=== PATIENT | male | born 1940 | race Caucasian/White ===

== ENCOUNTER 2017-04-14 10:16 | Emergency (ER) | payer OTHER, MEDICARE ==
[~2017-04-14] VITALS: Ht 182.9 cm; Wt 99.4 kg
[~2017-04-14 10:16] MED LIST: ACET-1257 PO; ATEN-175 PO; ATOR-54 PO; CHOLTAB3 PO; CLON1TAB3 PO; OMEP40CA PO
[2017-04-14 10:31] VITALS: TEMP 37.4; Ht 182.9 cm; Wt 99.4 kg
[2017-04-14] MEDS ORDERED: LORA-741 PO (11:10)
[2017-04-14] MEDS ORDERED: CHOL1000 PO (11:10)
[2017-04-14] MEDS ORDERED: PRLSR20 PO (11:10)
[2017-04-14] MEDS ORDERED: DOCU-94 PO (11:12)
[2017-04-14] MEDS ORDERED: CLONIDINE HCL 0.1 MG TAB PO ONE (11:15)
[2017-04-14 11:20] VITALS: O2SAT 95
[2017-04-14 11:36] LABS: BASO % 0.6 %; BASO ABS # 0.06 K/uL (0-0.2); COMPLETE YES; EOS % 1.3 %; HEMATOCRIT 43.4 % (42-52); IG% 0.5 %; LYMPH % 14.6 %; LYMPH ABS # 1.51 K/uL (1.2-3.4); MEAN CELL VOLUME 97.1 fL (80-100); MEAN CORPUSCULAR HEMOGLOBIN 33.6 pg (25-34); MEAN CORPUSCULAR HGB CONC 34.6 g/dl (32-36); MEAN PLATELET VOLUME 9.6 fL (7.4-10.4); MONO % 7.9 %; NEUT % 75.1 %; PLATELET COUNT 234 K/uL (130-400); RED BLOOD COUNT 4.47 M/uL (4.7-6.1); WHITE BLOOD COUNT 10.31 K/uL (4.8-10.8)
--- NOTE | 2017-04-14 11:45 | DIAGNOSTIC IMAGING REPORT ---
CHEST ONE VIEW PORTABLE HISTORY: 76 years-old Male Evaluate Fever/Sepsis acute fever and sepsis COMPARISON: Chest radiograph 12/09/2014 TECHNIQUE: Portable AP view of the chest FINDINGS: Cardiomediastinal and hilar silhouettes are within normal limits. Atherosclerosis of the aorta. No pneumothorax, pleural effusion, focal airspace consolidation or overt pulmonary edema. Bones of the chest appear grossly intact. IMPRESSION: No acute cardiopulmonary process. The above report was generated using voice recognition software. It may contain grammatical, syntax or spelling errors. Electronically signed by: Jose Jackson M.D. 04/14/2017 11:44 AM Dictated Date/Time: 04/14/2017 11:42 AM
[2017-04-14 12:05] LABS: ALT/SGPT 34 U/L (12-78); BLOOD UREA NITROGEN 11 mg/dl (7-18); BUN/CREATININE RATIO 9.4 (10-20); CALCIUM 8.9 mg/dl (8.5-10.1); CARBON DIOXIDE 25 mmol/L (21-32); CHLORIDE 103 mmol/L (98-107); CREATININE 1.19 mg/dl (0.60-1.40); GLUCOSE 100 mg/dl (70-99); POTASSIUM 3.9 mmol/L (3.5-5.1); SODIUM 136 mmol/L (136-145)
[2017-04-14 12:16] LABS: ALKALINE PHOSPHATASE 78 U/L (45-117); AST/SGOT 26 U/L (15-37); CKMB/CK RATIO 1.6 (0-3.0)
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
[2017-04-14 14:47] VITALS: BP 143/81; PULSE 63; O2SAT 95
== END 2017-04-14 14:53 | disposition home or self-care (01) ==
LOC: C.EDB 10:18
DX: E86.0 Dehydration (principal); R53.1 Weakness; R42 Dizziness and giddiness; I10 Essential (primary) hypertension; Z85.51 Personal history of malignant neoplasm of bladder; Z79.899 Other long term (current) drug therapy; Z87.891 Personal history of nicotine dependence

== ENCOUNTER 2018-11-28 02:59 | Inpatient (IN) ==
[2018-11-28] MEDS ORDERED: HYDROmorphone INJ 0.5 MG/0.5 ML SYR IV STA ×2 (03:16→04:08)
[2018-11-28] MEDS ORDERED: KETOROLAC 30 MG/ML VIAL IV STA (03:16)
[2018-11-28 04:26] LABS: Basophils # (auto) 0.03 K/uL (0-0.2); Basophils % (auto) 0.2 %; Eosinophils # (auto) 0.06 K/uL (0-0.5); Eosinophils % (auto) 0.5 %; Hematocrit (blood only) 38.1 % (42-52); Hemoglobin 13.3 g/dL (14.0-18.0); Immature Granulocytes # (auto) 0.07 K/uL (0.00-0.02); Immature Granulocytes % (auto) 0.6 %; Lymphocytes # (auto) 0.88 K/uL (1.2-3.4); Mean Corpuscular Hgb Conc 34.9 g/dL (32-36); Mean Corpuscular Volume 92.7 fL (80-100); Mean Platelet Volume 9.2 fL (7.4-10.4); Monocytes # (auto) 1.09 K/uL (0.11-0.59); Monocytes % (auto) 8.7 %; Neutrophils # (auto) 10.45 K/uL (1.4-6.5); Platelet Count 232 K/uL (130-400); RDW Standard Deviation 43.3 fL (36.4-46.3); Red Blood Count 4.11 M/uL (4.7-6.1); White Blood Count 12.58 K/uL (4.8-10.8)
[2018-11-28 04:42] LABS: C Reactive Protein 1.52 mg/dl (0-0.29); Uric Acid 4.8 mg/dl (2.6-7.2)
--- NOTE | 2018-11-28 06:26 | Emergency Department Note ---
Entered by Marta Barajas acting as a scribe for Agatha Quintana DO History of Present Illness General Chief complaint: Elbow Injury/Pain Stated complaint: elbow pain Time Seen by Provider: 11/28/18 03:02 Source: patient History of Present Illness Onset (ago): hour(s) 8 Location: right (elbow) Severity: severe Pain Consistency: + other (Worsening) Quality: + other (Elbow pain) Relieved By: not by medication (Tylenol) Exacerbated By: + movement Associated symptoms: + other (Positive right arm pain. Negative right shoulder pain, left arm pain and abdominal pain.) Treatments prior to arrival: other (Tylenol) The patient is a 77 year old male who presents to the Emergency Department via EMS complaining of worsening elbow pain starting 8 hours ago. The patient reports that he hit his right elbow on a storm door and that he began to feel pain 4 hours after this event. He states that his right elbow is severely painful and moving his right arm worsens his elbow pain. He explains that he took Tylenol [employer] for his symptoms that did not relieve his pain. He notes that he has never experienced these symptoms before. He adds that he follows with a [facility] PCP. The patient denies right shoulder pain, left arm pain and abdominal pain. Home Medications Home Medications Medication Instructions Recorded Confirmed Type acetaminophen [Tylenol Extra 500 - 1,000 mg PO DIRECTED PRN 11/28/18 11/28/18 History Strength] atenolol 100 mg PO DAILY 11/28/18 11/28/18 History atorvastatin 20 mg PO PM 11/28/18 11/28/18 History cholecalciferol (vitamin D3) 400 unit PO DAILY 11/28/18 11/28/18 History [D-Vi-Tish] clonazepam 0.5 mg PO DAILY PRN 11/28/18 11/28/18 History clonazepam 1 mg PO HS PRN 11/28/18 11/28/18 History diphenhydramine-acetaminophen 1 tab PO DIRECTED PRN 11/28/18 11/28/18 History [Tylenol PM Extra Strength] ferrous sulfate 325 mg PO DAILY 11/28/18 11/28/18 History lorazepam 1 mg PO DIRECTED PRN 11/28/18 11/28/18 History odnqlkhf-duv-ptyqd-vit K-lycop 1 tab PO DAILY 11/28/18 11/28/18 History [Men's One Daily] omeprazole 20 mg PO DAILYBB 11/28/18 11/28/18 History sennosides [Natural Veg 8.6 mg PO BID PRN 11/28/18 11/28/18 History Laxative(sennosid)] Allergies Allergy/AdvReac Type Severity Reaction Status Date / Time meclizine Allergy Intermediate Swelling Verified 11/28/18 03:35 of tongue. aspirin AdvReac Unknown History of Verified 11/28/18 03:35 ulcers Past Med/Surg History Medical History Macular degeneration (Chronic) Tinnitus (Chronic) History of carcinoma of bladder (Chronic) Dyslipidemia (Chronic) History of colon polyps (Chronic) Hypertension (Chronic) Surgical History Status post lumbar surgery (Chronic) Social History Feels Safe at Home: Yes Smoking Status: Current every day smoker Review of Systems See HPI for pertinent positives & negatives. and A total of 10 systems reviewed and were otherwise negative Physical Exam Vital Signs Vital Signs - 24 hr 11/28/18 03:02 11/28/18 04:37 11/28/18 05:03 Temperature 37.1 C 37.1 C Temperature Source Oral Oral Sepsis Recent Fever Within 48 Hours No Sepsis Action Taken by Nursing No Action Required Pulse Rate 72 Pulse Rate [Right Finger] 68 Respiratory Rate 20 Respiratory Effort / Characteristics Non-Labored Respiratory Depth Normal Blood Pressure 145/109 H Blood Pressure [Left Arm] 166/82 H Blood Pressure Mean 121 Blood Pressure Mean [Left Arm] 110 Pulse Oximetry 98 96 Oxygen Delivery Method Room Air Room Air HEENT: Head - normocephalic and atraumatic Pupils are equal, round, and reactive to light. Extraocular eye muscles are intact, and sclera are anicteric. Nose - moist nasal mucosa without discharge. Mouth - moist buccal mucosa. Oropharynx is nonerythematous and there is no tonsillar exudate or edema noted. Neck: Supple; no nuchal rigidity or cervical lymphadenopathy Heart: Regular rate and rhythm. There is a normal S1 and S2 with no murmurs, clicks, or gallops appreciated. Lungs: Clear to auscultation bilaterally with no wheezes, rales, or rhonchi. Abdomen: Soft, completely nontender, nondistended, with good bowel sounds. There are no palpable pulsatile masses or hepatosplenomegaly. There is no guarding, rigidity, or rebound noted. Extremities: No evidence of cyanosis or clubbing.There are easily palpable peripheral pulses. Right elbow seems edematous and has a significantly limited range of motion. The patient has moderate pain to palpation over the medial aspect of the elbow specifically in the AC space and over the brachioradialis muscle. Skin: warm and dry with good turgor and no rashes. Course 0310: The patient was evaluated in room A10, and a complete history and physical examination were performed. An IV lock was initiated and the patient had an x- ray of the right elbow as described below. 0325: Toradol 30 mg IV, Dilaudid 0.5 mg IV 0358: I reevaluated the patient at this time who still has severe elbow pain with even slight movement. Laboratory studies were drawn 0421: Dilaudid 0.5 mg IV. The patient will be placed into an arm sling. 0454: I reevaluated the patient at this time who still reports that he is having severe pain. 0510: I discussed the patients case with Dr. Angie spears. He will evaluate the patient for further management. Consultations Consultation #1: I discussed the patients case with Dr. Angie spears. He will evaluate the patient for further management. Time: 05:10 Administered Medications Discontinued Medications Hydromorphone HCl (Dilaudid) 0.5 mg IV NOW STA Stop: 11/28/18 03:17 Last Admin: 11/28/18 03:25 Dose: 0.5 mg Documented by: [id number] Hydromorphone HCl (Dilaudid) 0.5 mg IV NOW STA Stop: 11/28/18 04:09 Last Admin: 11/28/18 04:21 Dose: 0.5 mg Documented by: [id number] Ketorolac Tromethamine (Toradol) 30 mg IV NOW STA Stop: 11/28/18 03:17 Last Admin: 11/28/18 03:25 Dose: 30 mg Documented by: [id number] Medical Decision Making Differential Diagnosis Differential diagnosis includes elbow fracture, elbow sprain, septic arthritis, bursitis, hemarthrosis, gout and joint effusion amongst others. Medical Records Attestation: I reviewed the patient's medical records. Home Medications Current Medication List: was personally reviewed by me Laboratory Data Attestation: I reviewed the patient's lab results. Result diagrams: 11/28/18 04:16 Lab Results 11/28/18 11/28/18 11/28/18 Range/Units 04:16 04:16 04:16 WBC 12.58 H (4.8-10.8) K/uL RBC 4.11 L (4.7-6.1) M/uL Hgb 13.3 L (14.0-18.0) g/dL Hct 38.1 L (42-52) % MCV 92.7 (80-100) fL MCH 32.4 (25-34) pg MCHC 34.9 (32-36) g/dL RDW Std Deviation 43.3 (36.4-46.3) fL RDW Coeff of Hemanth 13.0 (11.5-14.5) % Plt Count 232 (130-400) K/uL MPV 9.2 (7.4-10.4) fL Immature Gran % (Auto) 0.6 % Neut % (Auto) 83.0 % Lymph % (Auto) 7.0 % Moffat % (Auto) 8.7 % Eos % (Auto) 0.5 % Baso % (Auto) 0.2 % Immature Gran # (Auto) 0.07 H (0.00-0.02) K/uL Neut # (Auto) 10.45 H (1.4-6.5) K/uL Lymph # (Auto) 0.88 L (1.2-3.4) K/uL [place]at # (Auto) 1.09 H (0.11-0.59) K/uL Eos # (Auto) 0.06 (0-0.5) K/uL Baso # (Auto) 0.03 (0-0.2) K/uL ESR 15 H (0-14) mm/hr Uric Acid 4.8 (2.6-7.2) mg/dl C-Reactive Protein 1.52 H (0-0.29) mg/dl Imaging Data Attestation: I personally reviewed and interpreted this imaging study as follows: My Impression: XR Elbow RT min 3V routine Stat: No obvious fracture. No significant joint effusion. No dislocation. Blood Pressure Blood Pressure Findings: Elevated blood pressure Blood Pressure Disposition: further management by hospitalist MDM Narrative The patient is a 77 year old male who presents to the ED with worsening elbow pain starting 8 hours ago. Differential diagnosis includes elbow fracture, elbow sprain, septic arthritis, bursitis, gout, hemarthrosis and joint effusion amongst others. The patient had exquisite pain with even slight movement of the right elbow. There was a mild leukocytosis with a slightly elevated sed rate and C-reactive protein. Despite multiple IV pain medications, he was getting no relief of his discomfort. I am not convinced that the episode of striking the elbow with the storm door 4 hours prior to the start of his pain had anything to do with his discomfort. I considered the possibility of gout as well as a septic joint versus bursitis. I felt the patient would require further inpatient care for management of the pain and evaluation by orthopedics. Impression & Plan Right elbow pain Discharge Plan Visit Data Chief Complaint: Elbow Injury/Pain Stated Complaint: elbow pain ED Provider: Agatha Quintana Discharge Problem: Right elbow pain Patient Disposition: Being Evaluated by Hospitalist Discharge Instructions Interventions: ED Discharge Assessment Last Done: 11/28/18 06:13 Forms Stand Alone Forms: My [facility] (Closed) Prescriptions Prescriptions: No Action sennosides [Natural Veg Laxative(sennosid)] 8.6 mg Tablet 8.6 mg PO BID PRN (Reason: Constipation) RF: 0 atorvastatin 20 mg Tablet 20 mg PO PM RF: 0 clonazepam 1 mg Tablet 1 mg PO HS PRN (Reason: RESTLESSNESS) RF: 0 clonazepam 1 mg Tablet 0.5 mg PO DAILY PRN (Reason: Anxiety) RF: 0 acetaminophen [Tylenol Extra Strength] 500 mg Tablet 500 - 1,000 mg PO DIRECTED PRN (Reason: Pain) RF: 0 ferrous sulfate 325 mg (65 mg iron) Tablet 325 mg PO DAILY RF: 0 omeprazole 20 mg Capsule,Delayed Release(Dr/Ec) 20 mg PO DAILYBB RF: 0 lorazepam 1 mg Tablet 1 mg PO DIRECTED PRN (Reason: BEFORE TRAVELING) RF: 0 diphenhydramine-acetaminophen [Tylenol PM Extra Strength] 25-500 mg Tablet 1 tab PO DIRECTED PRN (Reason: Pain) RF: 0 atenolol 50 mg Tablet 100 mg PO DAILY RF: 0 cholecalciferol (vitamin D3) [D-Vi-Tish] 10 mcg/mL (400 unit/mL) Drops 400 unit PO DAILY RF: 0 Men's One Daily 400-20-300 mcg Tablet 1 tab PO DAILY RF: 0 Referrals Referrals: Demarco Guallpa MD [Primary Care Provider] - The scribe's documentation has been prepared under my direction and personally reviewed by me in its entirety. I confirm that the note above accurately reflects all work, treatment, procedures, and medical decision making performed by me.
--- NOTE | 2018-11-28 06:37 | XRay Report ---
XR elbow RT min 3V routine CLINICAL HISTORY: eval for trauma trauma. Pain. COMPARISON: None. DISCUSSION: Probable fracture radial head. Joint effusion. General degenerative change all major join t compartments. Mild reactive osteophytic changes throughout. Moderate generalized soft tissue edema IMPRESSION: 1. Nondisplaced fracture radial head. 2. Small joint effusion. 3. Generalized degenerative change. The above report was generated using voice recognition software. It may contain grammatical, syntax or spelling errors. Electronically signed by: Demarco Abdi M.D. 11/28/2018 6:36 AM
[2018-11-28] MEDS ORDERED: clonazePAM 0.5 MG TAB PO PRN (07:27)
[2018-11-28] MEDS ORDERED: POLYETHYLENE (MIRALAX) 17 GM PACK PO PRN (07:27)
[2018-11-28] MEDS ORDERED: ACETAMINOPHEN 325 MG TAB PO PRN (07:27)
[2018-11-28] MEDS ORDERED: THIAMINE HCL 100 MG in SYRINGE 9 ML IV STA (07:27)
[2018-11-28] MEDS ORDERED: clonazePAM 1 MG TAB PO PRN (07:27)
[2018-11-28] MEDS ORDERED: ONDANSETRON INJ 2 MG/ML 2 ML VIAL IV PRN (07:27)
[2018-11-28] MEDS ORDERED: HYDROmorphone INJ 0.5 MG/0.5 ML SYR ONE (07:41)
[2018-11-28 07:50] LABS: BUN Creatinine Ratio 12.9 (10-20); Calcium 8.9 mg/dl (8.5-10.1); Est GFR (African American) 68.4; Potassium 4.4 mmol/L (3.5-5.1)
--- NOTE | 2018-11-28 08:11 | CT Scan Report ---
CT elbow RT wo con CT DOSE: 183.77 mGy.cm CLINICAL HISTORY: right elbow injury. Painful movements TECHNIQUE: Helical images were acquired in the transverse plane. Sagittal and coronal reformatted geena ges were acquired. A dose lowering technique was utilized adhering to the principles of ALARA. COMPARISON STUDY: X-ray study dated 11/28/2018 FINDINGS: There is a moderate joint effusion. There are moderate osteoarthritic changes present. There is radial head spurring. There is olecranon and coracoid process spurring. There is distal humeral spurring. There are multiple loose bodies. No discrete fractures are delineated. There are no dislocations. IMPRESSION: 1. Moderately advanced osteoarthritic changes with osteophytic spurring and calcified loose bodies 2. Joint effusion 3. No acute fractures or dislocations identified. Electronically signed by: Kartik Salamanca M.D. 11/28/2018 8:10 AM
--- NOTE | 2018-11-28 09:29 | History and Physical Report ---
DATE OF ADMISSION: 11/28/2018 CHIEF COMPLAINT: Right elbow injury. 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 The patient lives alone. Yesterday in the evening, he tried to close the storm door, but it came back and hit his right elbow. At that time, it seemed okay, but as in the night after supper he noted to have severe pain. The pain got worse and he came to the ER. X-ray was done, unofficial report is unremarkable. The patient even after significant pain medications still had a lot of pain. He was placed in a sling, but still movement is causing pain in the elbow, so there is question of infection as well as leukocytosis, so we are called for admission. The patient is afebrile. Denies any headaches. Has macular degeneration, but can move around his house okay. No runny nose, no sore throat, no cough, no difficulty swallowing. Appetite is okay. No chest pain or shortness of breath. No nausea, no abdominal pain. Normal bowel and bladder movements. Ambulates okay. Currently resting comfortable and hemodynamically stable. ALLERGIES: ANTIVERT, ASPIRIN. PAST MEDICAL HISTORY: As mentioned above. PAST SURGICAL HISTORY: Colonoscopy with biopsy, colonoscopy with removal of the lesions, cystoscopy, EGD, lumbar spine fusion, cystectomy with ileal conduit, removal of the bladder tumor, cervical laminectomy. MEDICATIONS: The patient is on atenolol 100 mg p.o. daily, Lipitor 20 mg p.o. daily, Klonopin 1 mg at bedtime and 0.5 mg b.i.d. p.r.n., Ativan 1 mg before travel, omeprazole 20 mg p.o. daily, Tylenol extra strength p.r.n., multivitamins with minerals 1 tablet daily, vitamin D 4000 units p.o. daily, ferrous sulfate 325 mg p.o. daily. FAMILY HISTORY: Significant for father had colon cancer, brother had heart disorder, paternal grandmother has heart disorder. SOCIAL HISTORY: , lives alone. Smokes quarter pack a day. Alcohol, drinks more or less daily, but in the last 2 days has been did not drink. He drinks beer, could not quantify. No drug use. REVIEW OF SYMPTOMS: As per HPI. Rest of review of symptoms negative. PHYSICAL EXAMINATION: GENERAL: The patient is of moderate build, not in acute distress. VITAL SIGNS: Temperature 37.1, pulse 68, respiratory rate 20, blood pressure 166/82, oxygen 96% room air. HEENT: No pallor, no icterus. Pupils equal, round, reactive to light. NECK: No JVD, no neck masses, no carotid bruits. CARDIOVASCULAR SYSTEM: S1, S2 heard, regular rate and rhythm, no murmur, no gallop. RESPIRATORY SYSTEM: Normal AP diameter. No accessory muscle use. No wheezing, no crackles. ABDOMEN: Soft, bowel sounds present, nontender. No distention. CENTRAL NERVOUS SYSTEM: Cranial nerves II-XII grossly intact. Nonfocal. EXTREMITIES: Right elbow is somewhat warm and painful movements. No erythema or edema seen. LABORATORY DATA: WBC 12.5, hemoglobin 13.3, hematocrit 38.1, platelets 232. ESR 15. C-reactive protein 1.5. Uric acid 4.8. ASSESSMENT AND PLAN: This is a 77-year-old male who presents with right elbow injury. 1. Right elbow injury hit by a storm door. No obvious swelling or erythema seen, but he has some significant painful movements. Even after giving pain medication, he still has the pain. He has some mild leukocytosis . There is question of an infection, so will observe in medical floor. We will get a CAT scan of the elbow and consult orthopedics for further recommendations. 2. Alcoholism. He does not quantify how much he drinks, but he drinks more or less every day, but he states he did not drink nearly for the last 2 days. He states he does not get withdrawal symptoms. We will watch for any withdrawal symptoms. We will give him IV thiamine and continue his home multivitamins. Place him on thiamine p.o. daily. 3. Tobacco abuse, needs counseling. 4. Hypertension. Continue his atenolol. 5. Hyperlipidemia. Continue statin. 6. Anxiety. Continue his Klonopin p.r.n. 7. Chronic kidney disease stage III. We will follow the labs. 8. Deep venous thrombosis prophylaxis, sequential compression devices. DISPOSITION: Observation in medical floor. Expect discharge home and follow with family doctor. Level 1 full code. MTDD
[2018-11-28] MEDS: SODIUM CHLORIDE 0.9% 1000ML 1,000 ML IV SCH ×2 (09:42→22:52)
[2018-11-28] MEDS: FERROUS SULFATE 325 MG TAB PO SCH (09:43)
[2018-11-28] MEDS: MULTIVITAMIN TAB PO SCH (09:43)
[2018-11-28] MEDS: THIAMINE HCL 100 MG TAB PO SCH (09:43)
[2018-11-28] MEDS: CHOLECALCIFEROL 1,000 UNITS TAB PO SCH (09:43)
[2018-11-28] MEDS: PANTOprazole 40 MG TAB PO SCH (09:43)
[2018-11-28] MEDS: ATENOLOL 50 MG TABLET PO SCH (09:44)
--- NOTE | 2018-11-28 10:06 | Orthopedic Consultation ---
Date of Consultation November 28, 2018 Assessment & Plan (1) Right elbow pain: Continue sling to right upper extremity. Can apply ice as needed. I will discuss the case with Dr. Lock and review films with him. Question infection of the right elbow joint versus injury. Sed rate is only marginally elevated and CRP is noted to be mildly elevated as well. Mild increase in white count. Question need for MRI of right elbow to rule out ligamentous injury or fracture not identified through CT scan. Possible need for joint aspiration. Will await Dr. Lock's input. History of Present Illness Reason for Consultation: Right elbow pain Attending Physician: Anabel Juarez MD History of Present Illness Patient is a 77-year-old white male who states that yesterday evening while trying to close a door, the door got away from him and ended up hitting him on the right elbow. At that time he did not have much in way of discomfort, however over the. Of the evening he began having increased pain in the elbow. As time progressed, the pain worsened. He had taken some Tylenol which did not relieve any of his symptoms. He was unable to sleep due to the amount of pain he was having and he states that his range of motion had decreased and moving the elbow was quite painful. He decided to come into the emergency room early in the morning. X-rays were taken and showed there being a question of a radial head fracture in the right elbow. Follow-up CT scan confirmed a moderate joint effusion but no fracture. He had a mild increase in his white count and he was admitted to rule out infection versus other injury. He denies any chills or rigors at home. Denies any fevers,N/V, flu or cold like symptoms. Allergies Allergy/AdvReac Type Severity Reaction Status Date / Time meclizine Allergy Intermediate Swelling Verified 11/28/18 03:35 of tongue. aspirin AdvReac Unknown History of Verified 11/28/18 03:35 ulcers Home Medications Home Medications Medication Instructions Recorded Confirmed Type acetaminophen [Tylenol Extra 500 - 1,000 mg PO DIRECTED PRN 11/28/18 11/28/18 History Strength] atenolol 100 mg PO DAILY 11/28/18 11/28/18 History atorvastatin 20 mg PO PM 11/28/18 11/28/18 History cholecalciferol (vitamin D3) 400 unit PO DAILY 11/28/18 11/28/18 History [D-Vi-Tish] clonazepam 0.5 mg PO DAILY PRN 11/28/18 11/28/18 History clonazepam 1 mg PO HS PRN 11/28/18 11/28/18 History diphenhydramine-acetaminophen 1 tab PO DIRECTED PRN 11/28/18 11/28/18 History [Tylenol PM Extra Strength] ferrous sulfate 325 mg PO DAILY 11/28/18 11/28/18 History lorazepam 1 mg PO DIRECTED PRN 11/28/18 11/28/18 History rgygevqv-txq-rfimd-vit K-lycop 1 tab PO DAILY 11/28/18 11/28/18 History [Men's One Daily] omeprazole 20 mg PO DAILYBB 11/28/18 11/28/18 History sennosides [Natural Veg 8.6 mg PO BID PRN 11/28/18 11/28/18 History Laxative(sennosid)] Patient History Medical History Macular degeneration (Chronic) Tinnitus (Chronic) History of carcinoma of bladder (Chronic) Dyslipidemia (Chronic) History of colon polyps (Chronic) Hypertension (Chronic) Surgical History Status post lumbar surgery (Chronic) Social History Preferred Language: Maltese Communication Ability: Effective Edge Sander Required: Yes Beliefs That Will Affect Care: None marital status: / Current Living Situation: Alone Feels Safe at Home: Yes Safety Concerns: Feels Safe At This Time Smoking Status: Current every day smoker Cigarettes Per Day: 1-2 per day up to 12 per day, intermittently Do You Dip or Chew Tobacco: No Hx Alcohol Use: Yes Hx Substance Use: No Physical Exam Physical Exam: On examination of the right upper extremity, the patient has a sling that has been loosely applied. Sling is removed. In observation, he keeps the elbow flexed at about 30 degrees. He has a mildly erythematous area noted over the lateral aspect of the elbow that appears a little bit of swollen. He has no erythema or swelling over the olecranon. On palpation of the elbow, he has no pain over the olecranon or the olecranon bursa. He has some mild pain on palpation over the erythematous area and some mild pain in the antecubital fossa. He states he has some pain radiating down the forearm but is not too bad. He has no pain radiating up the arm into the axilla and he is nontender on palpation of the biceps and triceps area into the axilla. No right shoulder pain. Palpation of the forearm is essentially nontender. He has good range of motion of his right wrist and fingers. No discernible loss of sensation. He has very limited range of motion at this time. He can actively flex the elbow to approximately 80 degrees. He is unable to fully extend the elbow due to pain and gets to around 30 degrees and stops. Supination and pronation of the forearm causes moderate pain in the elbow. He does have some mild warmth to the right elbow compared to the left but is not overtly hot. Again no gross motor or sensory loss at this time. Results & Data Vital Signs (Past 12 Hours) Vital Signs Temp Pulse Pulse Resp BP BP Pulse Ox 11/28/18 08:15 36.7 C 72 18 174/94 H 95 11/28/18 05:03 37.1 C 11/28/18 04:37 68 20 166/82 H 96 11/28/18 03:02 37.1 C 72 145/109 H 98 Laboratory Results Laboratory Results WBC 12.58 K/uL (4.8-10.8) H 11/28/18 04:16 RBC 4.11 M/uL (4.7-6.1) L 11/28/18 04:16 Hgb 13.3 g/dL (14.0-18.0) L 11/28/18 04:16 Hct 38.1 % (42-52) L 11/28/18 04:16 MCV 92.7 fL (80-100) 11/28/18 04:16 MCH 32.4 pg (25-34) 11/28/18 04:16 MCHC 34.9 g/dL (32-36) 11/28/18 04:16 RDW Std Deviation 43.3 fL (36.4-46.3) 11/28/18 04:16 RDW Coeff of Hemanth 13.0 % (11.5-14.5) 11/28/18 04:16 Plt Count 232 K/uL (130-400) 11/28/18 04:16 MPV 9.2 fL (7.4-10.4) 11/28/18 04:16 Immature Gran % (Auto) 0.6 % 11/28/18 04:16 Neut % (Auto) 83.0 % 11/28/18 04:16 Lymph % (Auto) 7.0 % 11/28/18 04:16 Ness % (Auto) 8.7 % 11/28/18 04:16 Eos % (Auto) 0.5 % 11/28/18 04:16 Baso % (Auto) 0.2 % 11/28/18 04:16 Immature Gran # (Auto) 0.07 K/uL (0.00-0.02) H 11/28/18 04:16 Neut # (Auto) 10.45 K/uL (1.4-6.5) H 11/28/18 04:16 Lymph # (Auto) 0.88 K/uL (1.2-3.4) L 11/28/18 04:16 Ness # (Auto) 1.09 K/uL (0.11-0.59) H 11/28/18 04:16 Eos # (Auto) 0.06 K/uL (0-0.5) 11/28/18 04:16 Baso # (Auto) 0.03 K/uL (0-0.2) 11/28/18 04:16 ESR 15 mm/hr (0-14) H 11/28/18 04:16 Sodium 128 mmol/L (136-145) L 11/28/18 07:02 Potassium 4.4 mmol/L (3.5-5.1) 11/28/18 07:02 Chloride 95 mmol/L (98-107) L 11/28/18 07:02 Carbon Dioxide 27 mmol/L (21-32) 11/28/18 07:02 Anion Gap 5.0 (3-11) 11/28/18 07:02 BUN 15 mg/dl (7-18) 11/28/18 07:02 Creatinine 1.19 mg/dl (0.6-1.4) 11/28/18 07:02 Est Cr Clr Drug Dosing 58.0 ml/min 11/28/18 07:02 Est GFR ( Amer) 68.4 11/28/18 07:02 Est GFR (Non-Af Amer) 59.0 11/28/18 07:02 BUN/Creatinine Ratio 12.9 (10-20) 11/28/18 07:02 Glucose 127 mg/dl (70-99) H 11/28/18 07:02 Uric Acid 4.8 mg/dl (2.6-7.2) 11/28/18 04:16 Calcium 8.9 mg/dl (8.5-10.1) 11/28/18 07:02 Magnesium 1.8 mg/dl (1.8-2.4) 11/28/18 07:02 C-Reactive Protein 1.52 mg/dl (0-0.29) H 11/28/18 04:16 Diagnostic Findings XR elbow RT min 3V routine CLINICAL HISTORY: eval for trauma trauma. Pain. COMPARISON: None. DISCUSSION: Probable fracture radial head. Joint effusion. General degenerative change all major joint compartments. Mild reactive osteophytic changes throughout. Moderate generalized soft tissue edema IMPRESSION: 1. Nondisplaced fracture radial head. 2. Small joint effusion. 3. Generalized degenerative change. CT elbow RT wo con CT DOSE: 183.77 mGy.cm CLINICAL HISTORY: right elbow injury. Painful movements TECHNIQUE: Helical images were acquired in the transverse plane. Sagittal and coronal reformatted images were acquired. A dose lowering technique was utilized adhering to the principles of ALARA. COMPARISON STUDY: X-ray study dated 11/28/2018 FINDINGS: There is a moderate joint effusion. There are moderate osteoarthritic changes present. There is radial head spurring. There is olecranon and coracoid process spurring. There is distal humeral spurring. There are multiple loose bodies. No discrete fractures are delineated. There are no dislocations. IMPRESSION: 1. Moderately advanced osteoarthritic changes with osteophytic spurring and calcified loose bodies 2. Joint effusion 3. No acute fractures or dislocations identified.
[2018-11-28] MEDS: HYDROmorphone INJ 0.5 MG/0.5 ML SYR IV PRN ×2 (14:40→19:35)
--- NOTE | 2018-11-28 15:13 | Hospitalist Progress Note ---
Date of Service November 28, 2018 Assessment & Plan (1) Right elbow pain: Admitted with the right elbow injury due to heat by a storm door X-ray of the elbow showed possible fracture but CT scan did not confirm that May need to do further imaging studies to exclude any fracture Appreciate Ortho input and recommendation Doubt any septic arthritis Minimal fluid clinically-management as per Present on Admission?: Yes (2) Alcoholism /alcohol abuse: Does not quantify how much alcohol he has been drinking He does not have any intoxication and/or withdrawal symptoms Will observe (3) Hypertension: Blood pressure remains controlled We will continue current medications Hyperlipidemia Continue current meds Anxiety stable Has been on Klonopin No anxiety at this time DVT prophylaxis SCDs and increase ambulation Likely discharge tomorrow Subjective 11/28 The patient was seen and examined in the medical floor He has been complaining of pain and swelling of the right elbow The movement of the right upper extremity causes pain in the elbow Denies any fever and/or chills, any nausea and/or vomiting Review of Systems Review of Systems: All systems reviewed and are unremarkable except as noted below Musculoskeletal: Right elbow is swelled with increasing local temperature clinically minimal fluid.. Any movement of the elbow is extremely painful Physical Exam Physical Exam: Denies any symptoms at rest except discomfort in right elbow Constitutional: well developed and well nourished; no acute distress Eyes: PERRL, conjunctivae normal, anicteric sclerae ENMT: external ear and nose normal, oropharynx normal Neck: trachea midline, no thyromegaly Respiratory: normal respiratory effort Auscultation: lungs clear to auscultation bilaterally Cardiovascular: Rate/Rhythm: regular rate and regular rhythm Gastrointestinal (Abdomen): Inspection/Auscultation: abdomen normal to inspection Musculoskeletal: Extremities: + joint enlargement (Right elbow joint with increasing local temperature and extremely painful with any movement) Neurologic: Alert, awake and oriented x3 Lymphatic: no cervical or axillary lymphadenopathy Results & Data Vital Signs (Past 12 Hours) Vital Signs Temp Pulse Resp BP Pulse Ox 11/28/18 08:15 36.7 C 72 18 174/94 H 95 11/28/18 05:03 37.1 C 11/28/18 04:37 68 20 166/82 H 96 Laboratory Results Short CBC 11/28/18 Range/Units 04:16 WBC 12.58 H (4.8-10.8) K/uL Hgb 13.3 L (14.0-18.0) g/dL Hct 38.1 L (42-52) % Plt Count 232 (130-400) K/uL BMP 11/28/18 07:02 Sodium 128 L Potassium 4.4 Chloride 95 L Carbon Dioxide 27 BUN 15 Creatinine 1.19 Glucose 127 H Calcium 8.9 Medications Administered Current Inpatient Medications Acetaminophen (Tylenol) 650 mg PO Q4H PRN PRN Reason: pain/fever Stop: 12/28/18 07:26 Atenolol (Tenormin) 100 mg PO DAILY ALEKSANDRA Stop: 12/28/18 08:59 Last Admin: 11/28/18 09:44 Dose: 100 mg Documented by: Atorvastatin Calcium (Lipitor) 20 mg PO PM ALEKSANDRA Stop: 12/28/18 20:59 Clonazepam (Klonopin) 0.5 mg PO DAILY PRN PRN Reason: Anxiety Stop: 12/28/18 07:26 Clonazepam (Klonopin) 1 mg PO HS PRN PRN Reason: RESTLESSNESS Stop: 12/28/18 07:26 Ferrous Sulfate (Feosol) 325 mg PO DAILY ALEKSANDRA Stop: 12/28/18 08:59 Last Admin: 11/28/18 09:43 Dose: 325 mg Documented by: Hydromorphone HCl (Dilaudid) 0.5 mg IV Q3H PRN PRN Reason: Pain Stop: 12/12/18 07:26 Last Admin: 11/28/18 14:40 Dose: 0.5 mg Documented by: Sodium Chloride (Nss 1000ml) 1,000 mls @ 75 mls/hr IV .[id number] ALEKSANDRA Stop: 12/28/18 19:00 Last Admin: 11/28/18 09:42 Dose: 75 mls/hr Documented by: Multivitamins (Multivitamin Tab) 1 tab PO DAILY ALEKSANDRA Stop: 12/28/18 08:59 Last Admin: 11/28/18 09:43 Dose: 1 tab Documented by: Ondansetron HCl (Zofran) 4 mg IV Q6H PRN PRN Reason: Nausea Stop: 12/28/18 07:26 Pantoprazole Sodium (Protonix) 40 mg PO DAILYBB ALEKSANDRA Stop: 12/28/18 07:59 Last Admin: 11/28/18 09:43 Dose: 40 mg Documented by: Polyethylene Glycol (Miralax Powder Packet) 17 gm PO DAILY PRN PRN Reason: Constipation Stop: 12/28/18 07:26 Thiamine HCl (Vitamin B-1) 100 mg PO QAM [facility] Stop: 12/28/18 08:59 Last Admin: 11/28/18 09:43 Dose: 100 mg Documented by: Vitamin D (Vitamin D3) 1,000 units PO DAILY ALEKSANDRA Stop: 12/28/18 08:59 Last Admin: 11/28/18 09:43 Dose: 1,000 units Documented by:
[2018-11-28] MEDS ORDERED: GADOBUTROL 65ML VIAL IV PRN (20:43)
[2018-11-28] MEDS: ATORVASTATIN 20 MG TAB PO SCH (21:45)
--- NOTE | 2018-11-28 22:28 | Magnetic Resonance Report ---
MR elbow RT wo/w con CLINICAL HISTORY: 77 years-old Male with r/o ligamentous injury/radial head fx. Acute right elbow pa in COMPARISON: Right elbow radiographs and right elbow CT of same day TECHNIQUE: Multiplanar, multi sequence MRI of the right elbow was performed both with and without the use of 8.5 mL Gadavist FINDINGS: Motion degraded exam limits the study, notably the ligamentous structures are suboptimally visualized . LATERAL COLLATERAL LIGAMENT: The lateral collateral ligaments including the lateral ulnar collateral ligament are intact and unremarkable in appearance. COMMON EXTENSOR TENDON: High-grade partial-thickness tear is noted about the superior and anterior f ibers of the insertional common extensor tendon (image 19 series 11 image 14 series 7 which measures 8 x 5 mm in AP and cranial caudal dimension.. Moderate thickening of the common extensor tendon yasir tible with background tendinosis with adjacent enthesophyte. MEDIAL COLLATERAL LIGAMENT: Mildly thickened ulnar collateral ligament is suggestive of chronic spra in. No evidence of acute tear. COMMON FLEXOR TENDON: The opacified noted at the origin of the common flexor. There is mild thickeni ng suggestive of tendinosis without acute tear identified. MUSCLES: The biceps and brachialis tendon insertions are normal in appearance. No evidence of tear or strain. The triceps tendon insertion on the olecranon is also unremarkable in appearance. ULNAR NERVE: The ulnar nerve is normally located in the ulnar sulcus and is unremarkable in appearan ce. 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 Multiple intra-articular loose bodies are better seen on comparison CT study. Mild subchondral cystic change/edema about the radial head. No ac lisseth fracture, dislocation or significant bone marrow edema. SOFT TISSUES: Large joint effusion with distention of the joint space. There is extensive subcutaneo us and deep tissue edema about the elbow and forearm with intramuscular edema noted about the volar f orearm and distal triceps distribution. There is increased enhancement noted within these distributio ns. Associated synovial thickening and enhancement is also noted. IMPRESSION: 1. Motion degraded exam. 2. 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 Multiple intra-articular loose bodies are better seen on comparison CT. 3. Extensive subcutaneous, deep tissue and intramuscular edema about the elbow and forearm with assoc iated enhancement. Synovial thickening and enhancement is also noted. Primary differential considerat ions would include infectious or inflammatory myositis/cellulitis. Correlate clinically to exclude in fectious arthropathy or inflammatory arthropathy. 4. No acute fracture or dislocation. 5. High-grade partial-thickness tear of the insertional common extensor tendon, age-indeterminate. 6. Moderate common extensor and mild common flexor tendinosis. The above report was generated using voice recognition software. It may contain grammatical, syntax o r spelling errors. Electronically signed by: Jose Jackson M.D. 11/28/2018 10:26 PM
[2018-11-29] MEDS: PANTOprazole 40 MG TAB PO SCH (05:32)
[2018-11-29 05:38] LABS: Basophils # (auto) 0.03 K/uL (0-0.2); Basophils % (auto) 0.3 %; Eosinophils # (auto) 0.12 K/uL (0-0.5); Eosinophils % (auto) 1.1 %; Hematocrit (blood only) 37.3 % (42-52); Hemoglobin 13.1 g/dL (14.0-18.0); Immature Granulocytes # (auto) 0.07 K/uL (0.00-0.02); Immature Granulocytes % (auto) 0.6 %; Lymphocytes # (auto) 1.71 K/uL (1.2-3.4); Mean Corpuscular Hgb Conc 35.1 g/dL (32-36); Mean Corpuscular Volume 95.2 fL (80-100); Mean Platelet Volume 9.2 fL (7.4-10.4); Monocytes # (auto) 1.59 K/uL (0.11-0.59); Neutrophils # (auto) 7.87 K/uL (1.4-6.5); Platelet Count 192 K/uL (130-400); RDW Coefficient of Variation 13.3 % (11.5-14.5); RDW Standard Deviation 46.3 fL (36.4-46.3); Red Blood Count 3.92 M/uL (4.7-6.1); White Blood Count 11.39 K/uL (4.8-10.8)
[2018-11-29 05:54] LABS: BUN Creatinine Ratio 13.7 (10-20); Calcium 8.1 mg/dl (8.5-10.1); Creatinine Clr Calc Pharmacy 58.5 ml/min; Est GFR (African American) 69.1; Est GFR (Non-African American) 59.6; Magnesium 1.8 mg/dl (1.8-2.4)
[2018-11-29] MEDS: THIAMINE HCL 100 MG TAB PO SCH (09:44)
[2018-11-29] MEDS: ATENOLOL 50 MG TABLET PO SCH (09:44)
[2018-11-29] MEDS: CHOLECALCIFEROL 1,000 UNITS TAB PO SCH (09:44)
[2018-11-29] MEDS: MULTIVITAMIN TAB PO SCH (09:44)
[2018-11-29] MEDS: FERROUS SULFATE 325 MG TAB PO SCH (09:45)
[2018-11-29] MEDS ORDERED: ETHYL CHLORIDE AER PER SPRAY 100 ML CAN EXT ONE (11:14)
[2018-11-29] MEDS ORDERED: ETHYL CHLORIDE AER SPR 100 ML CAN EXT ONE (11:30)
--- NOTE | 2018-11-29 11:56 | Orthopedic Progress Note ---
Date of Service November 29, 2018 Assessment & Plan (1) Effusion of elbow joint, right: possible hemarthrosis MRI confirmed effusion. Dr. Lock to aspirate the right elbow today. If the aspirate does not appear infectious, patient may be able to be discharged home and follow up with Dr. Lock's clinic in 10-14 days. Continue current pain regimen. Procedure note: After obtaining verbal consent from the patient the right elbow was sterilely prepped with Betadine and alcohol swab. Approximately 4 to 5 cc of clear straw-colored fluid was aspirated from the right elbow joint. A sterile compressive bandage was applied to the site. Patient tolerated the procedure well. The aspirate was sent for cell count with manual differential, aerobic, anaerobic, Gram stain, Lyme and crystal analysis. Will reassess in the malia Lcok DO (2) Degenerative joint disease of elbow, right: Subjective Overall, feeling better. Pain is improving in the elbow. States he can move it more today than he has been able to since his admission. No new complaints today. Physical Exam Constitutional: WD/WN, vitals as above Musculoskeletal: Extremities: + upper extremity abnormal to inspection Right (elbow: moderate swelling.), + limited ROM of upper extremity Right (elbow: Increased AROM today. Still limited with extension.) and + elbow/forearm abnormality Right (Mild erythema around the elbow. No open areas. ) Psychiatric: A+Ox3, euthymic affect Results & Data Vital Signs (Past 12 Hours) Vital Signs Temp Pulse Resp BP BP Pulse Ox 11/29/18 09:43 73 148/76 H 11/29/18 06:54 36.9 C 76 16 154/80 H 96
[2018-11-29] MEDS: HYDROmorphone INJ 0.5 MG/0.5 ML SYR IV PRN (12:05)
[2018-11-29] MEDS: SODIUM CHLORIDE 0.9% 1000ML 1,000 ML IV SCH (12:05)
[2018-11-29 13:33] LABS: Appearance Synovial Fluid BLOODY; Color Synovial Fluid RED; RBC Synovial Fluid (A) 275000 /uL; Source Synovial Fluid ELBOW; WBC Synovial Fluid (A) 15600 /uL (0-200)
--- NOTE | 2018-11-29 15:33 | Hospitalist Progress Note ---
Date of Service November 29, 2018 Assessment & Plan (1) Right elbow pain: Admitted with the right elbow injury due to heat by a storm door X-ray of the elbow showed possible fracture but CT scan did not confirm that May need to do further imaging studies to exclude any fracture Appreciate Ortho input and recommendation Doubt any septic arthritis Minimal fluid clinically-management as per MRI of the right elbow: As below but did not show any fracture and/or dislocation 1. Motion degraded exam. 2. 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 Multiple intra-articular loose bodies are better seen on comparison CT. 3. Extensive subcutaneous, deep tissue and intramuscular edema about the elbow and forearm with associated enhancement. Synovial thickening and enhancement is also noted. Primary differential considerations would include infectious or inflammatory myositis/cellulitis. Correlate clinically to exclude infectious arthropathy or inflammatory arthropathy. 4. No acute fracture or dislocation. 5. High-grade partial-thickness tear of the insertional common extensor tendon, age-indeterminate. 6. Moderate common extensor and mild common flexor tendinosis. Status post aspiration from the right elbow joint-await Gram stain and culture sensitivity including other results We will continue current antibiotic (2) Alcoholism /alcohol abuse: Does not quantify how much alcohol he has been drinking He does not have any intoxication and/or withdrawal symptoms Remains stable without any withdrawal symptoms (3) Hypertension: Blood pressure remains controlled We will continue current medications Hyperlipidemia Continue current meds Anxiety stable Has been on Klonopin No anxiety at this time DVT prophylaxis SCDs and increase ambulation Await Gram stain and other tests for aspirate If there is no evidence of septic arthritis he will be going home tomorrow Subjective 11/28 The patient was seen and examined in the medical floor He has been complaining of pain and swelling of the right elbow The movement of the right upper extremity causes pain in the elbow Denies any fever and/or chills, any nausea and/or vomiting 11/29 The patient was seen and examined in medical floor His right elbow remains inflamed and swelled Pain has been a little bit better as of today Denies any fever and/or chills Review of Systems Review of Systems: All systems reviewed and are unremarkable except as noted below Musculoskeletal: Swelling and redness involving the right elbow. Any movement of the right elbow is moderately painful Physical Exam Physical Exam: No apparent distress at rest except some complaints about right elbow pain Constitutional: well developed and well nourished; no acute distress Eyes: PERRL, conjunctivae normal, anicteric sclerae ENMT: external ear and nose normal, oropharynx normal Neck: trachea midline, no thyromegaly Respiratory: normal respiratory effort Auscultation: lungs clear to auscultation bilaterally Cardiovascular: Rate/Rhythm: regular rate and regular rhythm Gastrointestinal (Abdomen): Inspection/Auscultation: abdomen normal to inspection Musculoskeletal: Extremities: + joint enlargement (Redness and swelling persisting right elbow but movement has been less painful) Lymphatic: no cervical or axillary lymphadenopathy Results & Data Vital Signs (Past 12 Hours) Vital Signs Temp Pulse Resp BP BP Pulse Ox 11/29/18 15:02 36.8 C 73 16 149/84 H 98 11/29/18 09:43 73 148/76 H 11/29/18 06:54 36.9 C 76 16 154/80 H 96 Laboratory Results Short CBC 11/29/18 Range/Units 05:24 WBC 11.39 H (4.8-10.8) K/uL Hgb 13.1 L (14.0-18.0) g/dL Hct 37.3 L (42-52) % Plt Count 192 (130-400) K/uL BMP 11/29/18 05:24 Sodium 133 L Potassium 4.0 Chloride 103 Carbon Dioxide 24 BUN 16 Creatinine 1.18 Glucose 101 H Calcium 8.1 L Medications Administered Current Inpatient Medications Acetaminophen (Tylenol) 650 mg PO Q4H PRN PRN Reason: pain/fever Stop: 12/28/18 07:26 Atenolol (Tenormin) 100 mg PO DAILY ALEKSANDRA Stop: 12/28/18 08:59 Last Admin: 11/29/18 09:44 Dose: 100 mg Documented by: Atorvastatin Calcium (Lipitor) 20 mg PO PM ALEKSANDRA Stop: 12/28/18 20:59 Last Admin: 11/28/18 21:45 Dose: 20 mg Documented by: Clonazepam (Klonopin) 0.5 mg PO DAILY PRN PRN Reason: Anxiety Stop: 12/28/18 07:26 Clonazepam (Klonopin) 1 mg PO HS PRN PRN Reason: RESTLESSNESS Stop: 12/28/18 07:26 Last Admin: 11/28/18 22:52 Dose: 1 mg Documented by: Ferrous Sulfate (Feosol) 325 mg PO DAILY ALEKSANDRA Stop: 12/28/18 08:59 Last Admin: 11/29/18 09:45 Dose: 325 mg Documented by: Gadobutrol (Gadavist 65ml) 8.5 ml IV ONCE PRN PRN Reason: Interaction Checking Stop: 12/02/18 20:42 Last Admin: 11/28/18 20:43 Dose: 8.5 ml Documented by: Hydromorphone HCl (Dilaudid) 0.5 mg IV Q3H PRN PRN Reason: Pain Stop: 12/12/18 07:26 Last Admin: 11/29/18 12:05 Dose: 0.5 mg Documented by: Sodium Chloride (Nss 1000ml) 1,000 mls @ 75 mls/hr IV .[id number] [facility] Stop: 12/28/18 19:00 Last Infusion: 11/29/18 14:02 Dose: 75 mls/hr Documented by: Multivitamins (Multivitamin Tab) 1 tab PO DAILY ALEKSANDRA Stop: 12/28/18 08:59 Last Admin: 11/29/18 09:44 Dose: 1 tab Documented by: Ondansetron HCl (Zofran) 4 mg IV Q6H PRN PRN Reason: Nausea Stop: 12/28/18 07:26 Pantoprazole Sodium (Protonix) 40 mg PO DAILYBB [facility] Stop: 12/28/18 07:59 Last Admin: 11/29/18 05:32 Dose: 40 mg Documented by: Polyethylene Glycol (Miralax Powder Packet) 17 gm PO DAILY PRN PRN Reason: Constipation Stop: 12/28/18 07:26 Thiamine HCl (Vitamin B-1) 100 mg PO QAM ALEKSANDRA Stop: 12/28/18 08:59 Last Admin: 11/29/18 09:44 Dose: 100 mg Documented by: Vitamin D (Vitamin D3) 1,000 units PO DAILY ALEKSANDRA Stop: 12/28/18 08:59 Last Admin: 11/29/18 09:44 Dose: 1,000 units Documented by:
[2018-11-29] MEDS: ATORVASTATIN 20 MG TAB PO SCH (20:53)
[2018-11-30] MEDS: SODIUM CHLORIDE 0.9% 1000ML 1,000 ML IV SCH (00:12)
[2018-11-30 06:11] LABS: Basophils # (auto) 0.04 K/uL (0-0.2); Basophils % (auto) 0.4 %; Eosinophils # (auto) 0.22 K/uL (0-0.5); Hematocrit (blood only) 36.5 % (42-52); Hemoglobin 12.4 g/dL (14.0-18.0); Immature Granulocytes # (auto) 0.05 K/uL (0.00-0.02); Immature Granulocytes % (auto) 0.5 %; Lymphocytes # (auto) 2.16 K/uL (1.2-3.4); Mean Corpuscular Volume 96.6 fL (80-100); Mean Platelet Volume 9.4 fL (7.4-10.4); Monocytes # (auto) 1.47 K/uL (0.11-0.59); Monocytes % (auto) 13.6 %; Neutrophils # (auto) 6.85 K/uL (1.4-6.5); Neutrophils % (auto) 63.5 %; Platelet Count 221 K/uL (130-400); RDW Coefficient of Variation 13.3 % (11.5-14.5); RDW Standard Deviation 46.6 fL (36.4-46.3); Red Blood Count 3.78 M/uL (4.7-6.1); White Blood Count 10.79 K/uL (4.8-10.8)
[2018-11-30] MEDS: PANTOprazole 40 MG TAB PO SCH (06:24)
[2018-11-30] MEDS: ATENOLOL 50 MG TABLET PO SCH (07:35)
[2018-11-30] MEDS: CHOLECALCIFEROL 1,000 UNITS TAB PO SCH (08:58)
[2018-11-30] MEDS: MULTIVITAMIN TAB PO SCH (08:59)
[2018-11-30] MEDS: FERROUS SULFATE 325 MG TAB PO SCH (08:59)
[2018-11-30] MEDS: THIAMINE HCL 100 MG TAB PO SCH (09:00)
--- NOTE | 2018-11-30 10:03 | Orthopedic Progress Note ---
Date of Service November 30, 2018 Assessment & Plan (1) Effusion of elbow joint, right: Aspiration done by Dr. Lock yesterday. Gram stain + for gram + bacilli and cocci. Patient was told to stop eating any of his breakfast and is now NPO. Schedule for right elbow I & D. All potential risks, benefits, complications, alternatives, and rehab have been discussed with the patient and he wishes to proceed. Await aspirate cultures and sensitivities. (2) Degenerative joint disease of elbow, right: Subjective Overall, feeling better. Pain is improving in the elbow. Still having improvements but painful with certain movements. Had 3 bites of food with his breakfast. Physical Exam Constitutional: WD/WN, vitals as above Musculoskeletal: Extremities: + upper extremity abnormal to inspection Right (elbow: moderate swelling.), + limited ROM of upper extremity and + elbow/forearm abnormality Psychiatric: A+Ox3, euthymic affect Results & Data Vital Signs (Past 12 Hours) Vital Signs Temp Pulse Resp BP BP Pulse Ox 11/30/18 09:58 174/93 H 11/30/18 09:01 185/97 H 11/30/18 07:20 36.9 C 67 18 191/90 H 96 11/29/18 23:10 36.8 C 81 18 148/73 H 96
--- NOTE | 2018-11-30 12:17 | Hospitalist Progress Note ---
Date of Service November 30, 2018 Assessment & Plan (1) Right elbow pain: Admitted with the right elbow injury due to heat by a storm door X-ray of the elbow showed possible fracture but CT scan did not confirm that May need to do further imaging studies to exclude any fracture Appreciate Ortho input and recommendation Doubt any septic arthritis Minimal fluid clinically-management as per MRI of the right elbow: As below but did not show any fracture and/or dislocation 1. Motion degraded exam. 2. 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 Multiple intra-articular loose bodies are better seen on comparison CT. 3. Extensive subcutaneous, deep tissue and intramuscular edema about the elbow and forearm with associated enhancement. Synovial thickening and enhancement is also noted. Primary differential considerations would include infectious or inflammatory myositis/cellulitis. Correlate clinically to exclude infectious arthropathy or inflammatory arthropathy. 4. No acute fracture or dislocation. 5. High-grade partial-thickness tear of the insertional common extensor tendon, age-indeterminate. 6. Moderate common extensor and mild common flexor tendinosis. Status post aspiration from the right elbow joint-await Gram stain and culture sensitivity including other results We will continue current antibiotic Status post aspiration of the right elbow which showed gram-positive cocci He was taken to or today for incision and drainage of the right elbow joint (2) Alcoholism /alcohol abuse: Does not quantify how much alcohol he has been drinking He does not have any intoxication and/or withdrawal symptoms Remains stable without any withdrawal symptoms (3) Hypertension: Blood pressure remains controlled We will continue current medications Hyperlipidemia Continue current meds Anxiety stable Has been on Klonopin No anxiety at this time DVT prophylaxis SCDs and increase ambulation IND of the right elbow today as aspiration showed gram-positive cocci Subjective 11/28 The patient was seen and examined in the medical floor He has been complaining of pain and swelling of the right elbow The movement of the right upper extremity causes pain in the elbow Denies any fever and/or chills, any nausea and/or vomiting 11/29 The patient was seen and examined in medical floor His right elbow remains inflamed and swelled Pain has been a little bit better as of today Denies any fever and/or chills 11/30 The patient was seen and examined in the medical floor His condition has been improving with decreasing pain of the right elbow and swelling in the adjoining area Aspiration revealed positive for gram-positive cocci and the patient will have drainage of the elbow today Review of Systems Review of Systems: All systems reviewed and are unremarkable except as noted below Musculoskeletal: Swelling and redness involving the right elbow. Any movement of the right elbow is moderately painful Physical Exam Physical Exam: Minimal distress at rest due to right elbow pain and swelling Constitutional: well developed and well nourished; no acute distress Eyes: PERRL, conjunctivae normal, anicteric sclerae ENMT: external ear and nose normal, oropharynx normal Neck: trachea midline, no thyromegaly Respiratory: normal respiratory effort Auscultation: lungs clear to auscultation bilaterally Cardiovascular: Rate/Rhythm: regular rate and regular rhythm Gastrointestinal (Abdomen): Inspection/Auscultation: abdomen normal to inspection Musculoskeletal: Extremities: + joint enlargement (Redness and swelling persisting right elbow but movement has been less painful) Lymphatic: no cervical or axillary lymphadenopathy Results & Data Vital Signs (Past 12 Hours) Vital Signs Temp Pulse Resp BP BP Pulse Ox 11/30/18 09:58 174/93 H 11/30/18 09:01 185/97 H 11/30/18 07:20 36.9 C 67 18 191/90 H 96 Laboratory Results Short CBC 11/30/18 Range/Units 05:52 WBC 10.79 (4.8-10.8) K/uL Hgb 12.4 L (14.0-18.0) g/dL Hct 36.5 L (42-52) % Plt Count 221 (130-400) K/uL Medications Administered Current Inpatient Medications Acetaminophen (Tylenol) 650 mg PO Q4H PRN PRN Reason: pain/fever Stop: 12/28/18 07:26 Atenolol (Tenormin) 100 mg PO DAILY ALEKSANDRA Stop: 12/28/18 08:59 Last Admin: 11/30/18 07:35 Dose: 100 mg Documented by: Atorvastatin Calcium (Lipitor) 20 mg PO PM ALEKSANDRA Stop: 12/28/18 20:59 Last Admin: 11/29/18 20:53 Dose: 20 mg Documented by: Clonazepam (Klonopin) 0.5 mg PO DAILY PRN PRN Reason: Anxiety Stop: 12/28/18 07:26 Clonazepam (Klonopin) 1 mg PO HS PRN PRN Reason: RESTLESSNESS Stop: 12/28/18 07:26 Last Admin: 11/28/18 22:52 Dose: 1 mg Documented by: Ferrous Sulfate (Feosol) 325 mg PO DAILY ALEKSANDRA Stop: 12/28/18 08:59 Last Admin: 11/30/18 08:59 Dose: 325 mg Documented by: Gadobutrol (Gadavist 65ml) 8.5 ml IV ONCE PRN PRN Reason: Interaction Checking Stop: 12/02/18 20:42 Last Admin: 11/28/18 20:43 Dose: 8.5 ml Documented by: Hydromorphone HCl (Dilaudid) 0.5 mg IV Q3H PRN PRN Reason: Pain Stop: 12/12/18 07:26 Last Admin: 11/29/18 12:05 Dose: 0.5 mg Documented by: Multivitamins (Multivitamin Tab) 1 tab PO DAILY ALEKSANDRA Stop: 12/28/18 08:59 Last Admin: 11/30/18 08:59 Dose: 1 tab Documented by: Ondansetron HCl (Zofran) 4 mg IV Q6H PRN PRN Reason: Nausea Stop: 12/28/18 07:26 Pantoprazole Sodium (Protonix) 40 mg PO DAILYBB ALEKSANDRA Stop: 12/28/18 07:59 Last Admin: 11/30/18 06:24 Dose: 40 mg Documented by: Polyethylene Glycol (Miralax Powder Packet) 17 gm PO DAILY PRN PRN Reason: Constipation Stop: 12/28/18 07:26 Thiamine HCl (Vitamin B-1) 100 mg PO QAM ALEKSANDRA Stop: 12/28/18 08:59 Last Admin: 11/30/18 09:00 Dose: 100 mg Documented by: Vitamin D (Vitamin D3) 1,000 units PO DAILY ALEKSANDRA Stop: 12/28/18 08:59 Last Admin: 11/30/18 08:58 Dose: 1,000 units Documented by:
--- NOTE | 2018-11-30 14:02 | Anesthesiology Consultation ---
Date of Service November 30, 2018 Assessment & Plan (1) Encounter for pre-operative examination: Chart Review Chart Review: Acceptable Risk for Surgery Consults Requested none ASA ASA3 Proposed Anesthesia Anesthesia Type: General Risk / Benefits Reviewed With: PT / POA / Parent / Guardian, Accepts Plan and Informed Consent Obtained History Surgery Operation Date: 11/30/18 16:30 Proposed Procedures p Arthroscopy Elbow(Right) - Rolando Lock DO s Incision and Drainage Extremity - Rolando Lock DO Height/Weight Height: 6 ft Weight: 88.1 kg Allergies Allergy/AdvReac Type Severity Reaction Status Date / Time meclizine Allergy Intermediate Swelling Verified 11/28/18 03:35 of tongue. aspirin AdvReac Unknown History of Verified 11/28/18 03:35 ulcers Medications Home Medications Medication Instructions Recorded Confirmed Last Taken acetaminophen [Tylenol Extra 500 - 1,000 mg PO DIRECTED PRN 11/28/18 11/28/18 Unknown Strength] atenolol 100 mg PO DAILY 11/28/18 11/28/18 11/27/18 atorvastatin 20 mg PO PM 11/28/18 11/28/18 11/27/18 cholecalciferol (vitamin D3) 400 unit PO DAILY 11/28/18 11/28/18 11/27/18 [D-Vi-Tish] clonazepam 0.5 mg PO DAILY PRN 11/28/18 11/28/18 Unknown clonazepam 1 mg PO HS PRN 11/28/18 11/28/18 Unknown diphenhydramine-acetaminophen 1 tab PO DIRECTED PRN 11/28/18 11/28/18 11/28/18 00:30 [Tylenol PM Extra Strength] 1 TAB ferrous sulfate 325 mg PO DAILY 11/28/18 11/28/18 11/27/18 lorazepam 1 mg PO DIRECTED PRN 11/28/18 11/28/18 Unknown [id number] K-lycop 1 tab PO DAILY 11/28/18 11/28/18 11/27/18 [Men's One Daily] omeprazole 20 mg PO DAILYBB 11/28/18 11/28/18 11/27/18 sennosides [Natural Veg 8.6 mg PO BID PRN 11/28/18 11/28/18 Unknown Laxative(sennosid)] Active Medications Generic Name Dose Route Start Last Admin Trade Name Freq PRN Reason Stop Dose Admin Atenolol 100 mg 11/28/18 09:00 11/30/18 07:35 Tenormin PO 12/28/18 08:59 100 mg DAILY ALEKSANDRA Administration Atorvastatin Calcium 20 mg 11/28/18 21:00 11/29/18 20:53 Lipitor PO 12/28/18 20:59 20 mg PM ALEKSANDRA Administration Clonazepam 1 mg 11/28/18 07:27 11/28/18 22:52 Klonopin PO 12/28/18 07:26 1 mg HS PRN Administration RESTLESSNESS Ferrous Sulfate 325 mg 11/28/18 09:00 11/30/18 08:59 Feosol PO 12/28/18 08:59 325 mg DAILY ALEKSANDRA Administration Gadobutrol 8.5 ml 11/28/18 20:43 11/28/18 20:43 Gadavist 65ml IV 12/02/18 20:42 8.5 ml ONCE PRN Administration Interaction Checking Hydromorphone HCl 0.5 mg 11/28/18 07:27 11/29/18 12:05 Dilaudid IV 12/12/18 07:26 0.5 mg Q3H PRN Administration Pain Multivitamins 1 tab 11/28/18 09:00 11/30/18 08:59 Multivitamin Tab PO 12/28/18 08:59 1 tab DAILY ALEKSANDRA Administration Pantoprazole Sodium 40 mg 11/28/18 08:00 11/30/18 06:24 Protonix PO 12/28/18 07:59 40 mg DAILYBB ALEKSANDRA Administration Thiamine HCl 100 mg 11/28/18 09:00 11/30/18 09:00 Vitamin B-1 PO 12/28/18 08:59 100 mg QAM ALEKSANDRA Administration Vitamin D 1,000 units 11/28/18 09:00 11/30/18 08:58 Vitamin D3 PO 12/28/18 08:59 1,000 units DAILY ALEKSANDRA Administration Past Medical History Medical History Macular degeneration (Chronic) Tinnitus (Chronic) History of carcinoma of bladder (Chronic) Dyslipidemia (Chronic) History of colon polyps (Chronic) Hypertension (Chronic) Exercise / Class Metabolic Activity II 4-5 Yardwork/Stairs/Walk up hill Past Surgical History Surgical History Status post lumbar surgery (Chronic) Past Anesthesia History No Hx of Anesthesia Complications and No Family Hx of Anesthesia Complications History of PONV No Hx of PONV and No Hx of Motion Sickness Social History Smoking Status: Current every day smoker Smoking cigarettes per day: 1-2 per day up to 12 per day, intermittently Do You Dip or Chew Tobacco: No Hx Alcohol Use: Yes alcohol intake frequency: 0-2 drinks per day Hx Substance Use: No Physical Exam Vital Signs Last Vital Signs Temp 98.4 F 11/30/18 07:20 Pulse 67 11/30/18 07:20 Resp 18 11/30/18 07:20 BP 174/93 H 11/30/18 09:58 Pulse Ox 96 11/30/18 07:20 ENMT Mouth: + dentures Thyromental Distance: > or= 3.5 Finger Breadths Mallampati Class: II Neck normal visual inspection Respiratory normal respiratory effort Auscultation: lungs clear to auscultation bilaterally Cardiovascular Rate/Rhythm: regular rate and regular rhythm Testing Laboratory Results 11/30/18 05:52 11/29/18 05:24 11/29/18 Unknown Gram Stain - Final Elbow,Right Aerobic and Anaerobic Culture - Preliminary No growth to date. Electrocardiogram Date: 11/30/18 Sinus rhythm with 1st degree A-V block, rate 66 bpm Septal infarct (cited on or before 14-APR-2017) Abnormal ECG When compared with ECG of 14-APR-2017 11:21, No significant change was found
[2018-11-30] MEDS ORDERED: HydrALAZINE HCL 20 MG/ML VIAL IV STA (14:27)
[2018-11-30] MEDS ORDERED: ATROPINE SULFATE 0.1 MG/ML 10ML SYR IV PRN (16:25)
[2018-11-30] MEDS ORDERED: fentaNYL citrate 100 MCG/2 ML VIAL IV PRN (16:25)
[2018-11-30] MEDS ORDERED: ePHEDrine sulfate 50 MG/ML AMP IV PRN (16:25)
[2018-11-30] MEDS ORDERED: ONDANSETRON INJ 2 MG/ML 2 ML VIAL IV PRN ×2 (16:25→18:15)
[2018-11-30] MEDS ORDERED: BUPIVACAINE 0.5 % 5 MG/1 ML MPF 30ML VIAL ONE (16:27)
[2018-11-30] MEDS ORDERED: BACITRACIN INJ 50,000 UNIT VIAL ONE (16:27)
--- NOTE | 2018-11-30 16:53 | History & Physical Bridge Note ---
Date of Service November 30, 2018 History & Physical Bridge Note I have examined the patient, reviewed the History & Physical and in the interval since the performance of the History & Physical I have noted the following changes of clinical significance: no changes noted
[2018-11-30] MEDS ORDERED: LIDOCAINE HCL 2% 2 ML VIAL/AMP(20MG/ML) INFIL ONE (17:04)
[2018-11-30] MEDS ORDERED: CEFAZOLIN 250 MG/ML 1 GM VIAL ONE (17:04)
[2018-11-30] MEDS ORDERED: fentaNYL citrate 100 MCG/2 ML VIAL ONE (17:04)
[2018-11-30] MEDS ORDERED: PROPOFOL IV EMULSION 10 MG/ML 20 ML VIAL IV ONE (17:04)
[2018-11-30] MEDS ORDERED: OXYCODONE HCL IR 5 MG TAB (IMMEDIATE RELEASE) PO PRN (18:15)
[2018-11-30] MEDS ORDERED: BISACODYL 10 MG SUPP PR PRN (18:15)
[2018-11-30] MEDS ORDERED: MAGNESIUM HYDROXIDE SUSP 30 ML UDC PO PRN (18:15)
[2018-11-30] MEDS ORDERED: NALOXONE HCL 0.4 MG/1 ML VIAL/CARP IV PRN (18:15)
[2018-11-30] MEDS ORDERED: SODIUM CHLORIDE 0.9% 1000ML 1,000 ML IV SCH (18:15)
[2018-11-30] MEDS ORDERED: METOCLOPRAMIDE HCL INJ 5 MG/ML 2 ML VIAL IV PRN (18:15)
[2018-11-30] MEDS ORDERED: ACETAMINOPHEN 1000 MG/100 ML IV IV ONE (18:17)
[2018-11-30] MEDS ORDERED: VANCOMYCIN CONSULT ACTIVE PRN (18:21)
[2018-11-30] MEDS ORDERED: VANCOMYCIN HCL 1,000 MG in SODIUM CHLORIDE 0.9% 250 ML IV SCH (18:30)
--- NOTE | 2018-11-30 18:34 | Anesthesiology Progress Note ---
Date of Service November 30, 2018 Anesthesia Post Procedure Vital Signs Vital Signs: Temp Pulse Resp BP BP Pulse Ox 11/30/18 15:12 98.2 F 69 18 127/61 97 11/30/18 14:45 176/95 H 11/30/18 14:18 179/92 H 11/30/18 09:58 174/93 H 11/30/18 09:01 185/97 H 11/30/18 07:20 98.4 F 67 18 191/90 H 96 11/29/18 23:10 98.2 F 81 18 148/73 H 96 Pain Intensity Right Elbow: Pain Intensity: 3 Transfer of Care Handoff Completed per policy Notes Mental Status: alert / awake / arousable and participated in evaluation Patient Amnestic to Procedure: Yes Nausea / Vomiting: adequately controlled Pain: adequately controlled Airway Patency, RR, SpO2: stable & adequate BP & HR: stable & adequate Hydration State: stable & adequate Anesthetic Complications: no major complications apparent and Pt Satisfied with anesthetic care
--- NOTE | 2018-11-30 18:38 | Post Operative Brief Note ---
Immediate Post Op Note v1 Date of Surgery November 30, 2018 Pre & Post Diagnosis Operation Date: 11/30/18 16:30 Pre-Op Diagnosis: Septic arthritis right elbow, right elbow contusion, infected right elbow Post-Op Diagnosis: Septic arthritis right elbow, synovitis right elbow joint, right elbow contusion, infected right elbow Procedure Operation Date: 11/30/18 16:30 Actual Procedures p Right Elbow arthrotomy, irrigation and debridement right elbow joint, Synovectomy right elbow joint (Right) - Rolando Lock DO Surgeon Rolando Lock DO Public Address System Operator None Estimated Blood Loss 5 Findings Consistent with Post-Op Diagnosis Specimens Aerobic anaerobic Gram stain right elbow joint Drains Other (10 Yi flexible drain) Anesthesia Type General Complications none Disposition Accompanied Patient To Recovery: Yes Disposition: Recovery Room
[2018-11-30] MEDS ORDERED: VANCOMYCIN HCL 2,000 MG in SODIUM CHLORIDE 0.9% 500 ML IV ONE (19:15)
--- NOTE | 2018-11-30 20:13 | Pharmacy Report ---
Pharmacy Abx Dose Short Note - Date of Service November 30, 2018 - Assessment & Plan Assessment 77 year old M receiving vancomycin for treatment of an infected right elbow following a traumatic incident with a storm door Day # 1 of antimicrobial therapy. * Patient underwent irrigation, debridement, and synovectomy of the right elbow joint today (11/30/18) * Microbiology: right elbow pending * Synovial aspiration (11/29) revealed 15,600 WBCs, ESR: 15, CRP: 1.52 Plan Vancomycin IV * Estimated PK Parameters: Vd 0.7 L/kg, Frank 0.053 hr-1, t1/2 13 hr * Loading dose: 2000 mg (23 mg/kg) * Maintenance dose: 1250 mg IV (14 mg/kg) every 14 hours * Goal trough level for bone/joint infection : 15 to 20 mcg/mL * Trough level ordered for 12/02/18 @1230 prior to 4th dose of this regimen Pharmacy will continue to follow and will adjust dose/frequency as necessary. Thank you.
[2018-11-30] MEDS: SENNA 8.6 MG TAB PO SCH (20:42)
[2018-11-30] MEDS: KETOROLAC TROMETHAMINE 15 MG/ML VIAL IV SCH (20:42)
[2018-11-30] MEDS: ATORVASTATIN 20 MG TAB PO SCH (20:42)
[2018-11-30] MEDS: DOCUSATE SODIUM 100 MG CAP PO SCH (20:43)
[2018-11-30] MEDS ORDERED: cloNIDine HCl 0.1 MG TAB PO ONE (20:45)
--- NOTE | 2018-12-01 00:58 | Operative Report ---
DATE OF OPERATION: 11/30/2018 PREOPERATIVE DIAGNOSES: 1. Right elbow septic arthritis. 2. Right elbow contusion. POSTOPERATIVE DIAGNOSES: 1. Right elbow septic arthritis. 2. Right elbow contusion. 3. Synovitis of the right elbow joint. PROCEDURES: 1. Right elbow joint arthrotomy. 2. Irrigation and debridement, right elbow joint. 3. Synovectomy, right elbow joint. SURGEON: Rolando Lock DO GROUNDS MANAGER: None. ANESTHESIA: General with local. SPECIMENS: Aerobic, anaerobic, Gram stain, right deep elbow joint. DRAINS: A 10-Japanese flexible drain. COMPLICATIONS: None. BLOOD LOSS: 5 mL. PERTINENT HISTORY: This is a 77-year-old gentleman who sustained a contusion from a heavy screen door while at home several days ago. He then developed pain, swelling, and redness, which then produced some local erythema and discomfort in the right arm. He was seen in the Emergency Department, had radiographs and CT scans and eventually an MRI which demonstrated a large effusion. He had an arthrocentesis of the right elbow joint, which then revealed positive findings on Gram stain, rare gram-positive bacilli, rare gram-positive cocci. The patient was then scheduled for surgical treatment of the elbow as presumed septic arthritis. All potential risks, benefits, complications, alternatives, rehab, potential for incomplete relief of symptoms, need for further surgery, DVT, PE, , persistent pain, swelling, scarring, weakness, neurovascular injury, wound complications were discussed with the patient and the patient decided to proceed with procedure as indicated. DESCRIPTION OF PROCEDURE: The patient was taken to the operative suite, placed supine on the operating room table. After review of consent and identification of proper operative site, the patient was anesthetized and a tourniquet was applied high on the right upper extremity over cast padding. Right upper extremity was then sterilely prepped in the usual fashion, elevated and tourniquet inflated to 250 mmHg. There was no exsanguination performed due to the infection. Next, a 15-blade scalpel was used to make an oblique incision extending from the lateral epicondyle distally over the radial head. The incision was deepened through the subcutaneous tissue. Meticulous hemostasis was achieved with electrocautery. Full thickness skin flaps were developed. The fascia was then incised on the skin incision and the common extensor was then sharply incised within the lines of its fibers and elevated both superiorly and inferiorly to the level of the joint capsule of the radiocapitellar joint which was then carefully incised and opened. There was noted to be fluid within the joint and this was then cultured, aerobic, anaerobic, Gram stain directly. Next, the Radha rakes were placed in the incision, noting significant synovitis. Synovectomy was then performed with a rongeur throughout the radiocapitellar joint and a small curette was then used to curettage the inside of the elbow joint. Next, 3 L of sterile normal saline with bacitracin using pulsatile lavage was then used to lavage the joint until clear. Next, after the synovectomy and debridement had been performed, then after copious irrigation, there was noted to be some moderate arthritis throughout the joint with thinning of the joint spaces. The joint capsule and common extensors were then closed using #1 Vicryl and a drain was then placed into the joint exiting forearm dorsolaterally using a 10-Japanese flexible drain. Next, the dermis was closed using buried interrupted 3-0 Vicryl and skin was then closed using 3-0 nylon. The skin was then infiltrated with 0.5% Marcaine plain and then a sterile compressive dressing was applied and wrapped with an Cruz wrap. The tourniquet was released. The patient was awakened and taken to recovery in stable condition. I attest to the content of the Intraoperative Record and any orders documented therein. Any exception s are noted below.
[2018-12-01] MEDS: KETOROLAC TROMETHAMINE 15 MG/ML VIAL IV SCH ×3 (01:16→14:30)
[2018-12-01] MEDS: cloNIDine HCl 0.1 MG TAB PO PRN ×2 (03:59→14:31)
[2018-12-01] MEDS: PANTOprazole 40 MG TAB PO SCH (05:28)
[2018-12-01 06:18] LABS: Basophils # (auto) 0.03 K/uL (0-0.2); Basophils % (auto) 0.3 %; Eosinophils % (auto) 2.3 %; Hematocrit (blood only) 33.8 % (42-52); Hemoglobin 11.5 g/dL (14.0-18.0); Immature Granulocytes # (auto) 0.04 K/uL (0.00-0.02); Immature Granulocytes % (auto) 0.5 %; Lymphocytes # (auto) 1.46 K/uL (1.2-3.4); Lymphocytes % (auto) 16.5 %; Mean Corpuscular Volume 94.7 fL (80-100); Mean Platelet Volume 9.2 fL (7.4-10.4); Monocytes # (auto) 0.97 K/uL (0.11-0.59); Neutrophils # (auto) 6.15 K/uL (1.4-6.5); Neutrophils % (auto) 69.4 %; Platelet Count 213 K/uL (130-400); RDW Coefficient of Variation 13.2 % (11.5-14.5); RDW Standard Deviation 46.1 fL (36.4-46.3); Red Blood Count 3.57 M/uL (4.7-6.1); White Blood Count 8.85 K/uL (4.8-10.8)
[2018-12-01 06:52] LABS: BUN Creatinine Ratio 15.8 (10-20); Calcium 8.5 mg/dl (8.5-10.1); Creatinine Clr Calc Pharmacy 53.5 ml/min; Est GFR (Non-African American) 53.5; Potassium 3.9 mmol/L (3.5-5.1)
[2018-12-01] MEDS: CHOLECALCIFEROL 1,000 UNITS TAB PO SCH (08:15)
[2018-12-01] MEDS: THIAMINE HCL 100 MG TAB PO SCH (08:15)
[2018-12-01] MEDS: ATENOLOL 50 MG TABLET PO SCH (08:15)
[2018-12-01] MEDS: FERROUS SULFATE 325 MG TAB PO SCH (08:16)
[2018-12-01] MEDS: MULTIVITAMIN TAB PO SCH (08:16)
[2018-12-01] MEDS: DOCUSATE SODIUM 100 MG CAP PO SCH ×2 (08:18→20:52)
[2018-12-01] MEDS ORDERED: VANCOMYCIN HCL 1,250 MG in SODIUM CHLORIDE 0.9% 250 ML IV SCH (09:00)
[2018-12-01] MEDS ORDERED: MULTIVITAMIN TAB PO SCH (09:00)
[2018-12-01] MEDS: cloNIDine HCl 0.1 MG TAB PO SCH ×2 (09:27→20:51)
--- NOTE | 2018-12-01 10:06 | Pharmacy Report ---
Pharmacy Abx Dose Short Note - Date of Service December 01, 2018 - Assessment & Plan Assessment 77 year old M receiving vancomycin for treatment of an infected right elbow following a traumatic incident with a storm door Day # 2 of antimicrobial therapy. * Patient underwent irrigation, debridement, and synovectomy of the right elbow joint on 11/30/18 * Microbiology: right elbow cultures pending * Synovial aspiration (11/29) revealed 15,600 WBCs, ESR: 15, CRP: 1.52 SCr has increased slightly, warranting an adjustment to vancomycin dose to prevent supratherapeutic levels Plan Vancomycin * New PK estimates: Frank 0.049 hr-1, t1/2 14 hours * Change to 1250 mg (14 mg/kg) IV every 16 hours * Goal trough level : 15 to 20 mcg/mL * Trough level ordered for: 12/02/18 prior to the 3rd dose (NOTE: prior to steady state but will be 4th dose overall and want to monitor closely in the setting of changing renal function) * SCr ordered for 12/02 and 12/03 Pharmacy will continue to follow and will adjust dose/frequency as necessary. Thank you.
--- NOTE | 2018-12-01 11:20 | Infectious Disease Consult ---
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 Ai with course of abx, he would prefer to undergo po abx. he states he does not live close by and [facility] may be difficult for him. would suggest doxy 100mg po bid with food x 21 days if he prefers po abx. Alternative would be 2 dose of IV Dalvance at [facility] but he would prefer po abx. will follow final cultures - suspect may be negative due to outpatient abx sea captain. History of Present Illness Attending Physician: Anabel Juarez MD pt admitted after he had traumatic wound to right elbow, hit with door at home. had increased pain and swelling, came to ER. MRI showed severe OA and large effusion, had aspiration done on 11/29 - >15,000 wbc 94%N, gram stain with rare gpc culture negative. Started on emperic vanco. Went to OR yesterday for washout, tolerated well. dressing intact, drain in place. family at bedside. OR culture pending, gram stain negative. Pt states pain significantly improved, no f/c. no cp, sob, n/v/d/abd pain, no gu symptoms. No f/c. States he takes an antibiotic daily x 4 years for h/o stomach ulcer. Does not know name of abx, states he was taking up until admission, not listed on home meds. States he was told by ortho that he will be d/c home on po abx for at least 2 weeks, states he was initially told he would need IV abx but states he would prefer po abx. ID asked to eval for septic arthritis. Allergies Allergy/AdvReac Type Severity Reaction Status Date / Time meclizine Allergy Intermediate Swelling Verified 11/28/18 03:35 of tongue. aspirin AdvReac Unknown History of Verified 11/28/18 03:35 ulcers Home Medications Home Medications Medication Instructions Recorded Confirmed Type acetaminophen [Tylenol Extra 500 - 1,000 mg PO DIRECTED PRN 11/28/18 11/28/18 History Strength] atenolol 100 mg PO DAILY 11/28/18 11/28/18 History atorvastatin 20 mg PO PM 11/28/18 11/28/18 History cholecalciferol (vitamin D3) 400 unit PO DAILY 11/28/18 11/28/18 History [D-Vi-Tish] clonazepam 0.5 mg PO DAILY PRN 11/28/18 11/28/18 History clonazepam 1 mg PO HS PRN 11/28/18 11/28/18 History diphenhydramine-acetaminophen 1 tab PO DIRECTED PRN 11/28/18 11/28/18 History [Tylenol PM Extra Strength] ferrous sulfate 325 mg PO DAILY 11/28/18 11/28/18 History lorazepam 1 mg PO DIRECTED PRN 11/28/18 11/28/18 History yotlupqj-fch-tilhi-vit K-lycop 1 tab PO DAILY 11/28/18 11/28/18 History [Men's One Daily] omeprazole 20 mg PO DAILYBB 11/28/18 11/28/18 History sennosides [Natural Veg 8.6 mg PO BID PRN 11/28/18 11/28/18 History Laxative(sennosid)] Patient History Medical History Macular degeneration (Chronic) Tinnitus (Chronic) History of carcinoma of bladder (Chronic) Dyslipidemia (Chronic) History of colon polyps (Chronic) Hypertension (Chronic) Surgical History Status post lumbar surgery (Chronic) Social History Preferred Language: [place] Irish Communication Ability: Effective Rn Neonatal Icu Required: Yes Beliefs That Will Affect Care: None marital status: / Current Living Situation: Alone Feels Safe at Home: Yes Safety Concerns: Feels Safe At This Time Smoking Status: Current every day smoker Cigarettes Per Day: 1-2 per day up to 12 per day, intermittently Do You Dip or Chew Tobacco: No Hx Alcohol Use: Yes Hx Substance Use: No Review of Systems Review of Systems: All systems reviewed & are unremarkable except as noted in HPI & below Physical Exam Constitutional: WD/WN, vitals as above Eyes: PERRL, conjunctivae normal, anicteric sclerae ENMT: external ear and nose normal, oropharynx normal Neck: normal visual inspection Respiratory: normal respiratory effort, lungs clear to auscultation Cardiovascular: RRR, no murmur, no edema Gastrointestinal (Abdomen): normal bowel sounds, soft, nontender, no hepatosplenomegaly Musculoskeletal: no cyanosis or clubbing, extremities motor strength 5/5 Skin: no rashes, warm and dry right elbow dressing c/d/i, drain in place with min blood tinged fluid Psychiatric: A+Ox3, euthymic affect Results & Data Vital Signs (Past 12 Hours) Vital Signs Temp Pulse Pulse Resp BP Pulse Ox 12/01/18 07:50 36.6 C 68 16 176/88 H 97 12/01/18 05:25 65 152/92 H 12/01/18 05:00 58 L 179/86 H 12/01/18 03:05 37 C 71 16 170/86 H 99 Laboratory Results Microbiology 11/30/18 17:53 Elbow,Right Gram Stain - Final 11/29/18 Unknown Elbow,Right Gram Stain - Final 11/29/18 Unknown Elbow,Right Aerobic and Anaerobic Culture - Preliminary No growth to date.
--- NOTE | 2018-12-01 12:29 | Progress Note ---
DATE: 12/01/2018 SUBJECTIVE: The patient is postop day 1 status post irrigation and debridement of right elbow joint. Currently, he is visiting with family and appears to be doing well. He appears comfortable and he states at this point in time that he is not having any discomfort. He denies any shortness of breath, chest pain or lightheadedness and he states that Dr. Zeng was just by to talk to him about antibiotics. OBJECTIVE: Dressings are clean, dry, and intact. He has drained 20 mL from previous shift. He has limited range of motion in the elbow right now due to very heavy dressing, but has good right wrist range of motion without pain and good hand strength of the right hand. Sensation is intact and capillary refill is less than 2 seconds. He denies any right shoulder pain. ASSESSMENT: Septic right elbow joint. PLAN: The patient will be continued on IV antibiotics at this time. Cultures are pending and initial aspiration was showing 2 organisms. The cultures from the operating room were not showing any organisms at this time. We will continue to follow him at this point in time. Dr. Zeng has discussed antibiotics with this gentleman who was hoping he could get oral antibiotics to go home with, which will depend on culture results. Dr. Zeng has recommended either p.o. doxycycline versus IV Dalvance at the [facility], plan for dressing drainage change with drain removal tomorrow.
--- NOTE | 2018-12-01 17:08 | Hospitalist Progress Note ---
Date of Service December 01, 2018 Assessment & Plan (1) Right elbow pain: Admitted with the right elbow injury due to heat by a storm door X-ray of the elbow showed possible fracture but CT scan did not confirm that May need to do further imaging studies to exclude any fracture Appreciate Ortho input and recommendation Doubt any septic arthritis Minimal fluid clinically-management as per MRI of the right elbow: As below but did not show any fracture and/or dislocation 1. Motion degraded exam. 2. 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 Multiple intra-articular loose bodies are better seen on comparison CT. 3. Extensive subcutaneous, deep tissue and intramuscular edema about the elbow and forearm with associated enhancement. Synovial thickening and enhancement is also noted. Primary differential considerations would include infectious or inflammatory myositis/cellulitis. Correlate clinically to exclude infectious arthropathy or inflammatory arthropathy. 4. No acute fracture or dislocation. 5. High-grade partial-thickness tear of the insertional common extensor tendon, age-indeterminate. 6. Moderate common extensor and mild common flexor tendinosis. Status post aspiration from the right elbow joint-await Gram stain and culture sensitivity including other results We will continue current antibiotic Status post aspiration of the right elbow which showed gram-positive cocci Status post right elbow irrigation, debridement and synovectomy for septic arthritis(the full-blown symptoms were suppressed due to outpatient use of antibiotic) Clinically better today Appreciate ID input and recommendation Likely be discharged tomorrow on oral doxycycline for 21 days in total (2) Alcoholism /alcohol abuse: Does not quantify how much alcohol he has been drinking He does not have any intoxication and/or withdrawal symptoms Remains stable without any withdrawal symptoms (3) Hypertension: Blood pressure remains controlled We will continue current medications Noted to have very high blood pressure likely secondary to withdrawal from alcohol Clonidine 0.1 mg twice daily has been added Hyperlipidemia Continue current meds Anxiety stable Has been on Klonopin No anxiety at this time DVT prophylaxis SCDs and increase ambulation IND of the right elbow today as aspiration showed gram-positive cocci Subjective 11/28 The patient was seen and examined in the medical floor He has been complaining of pain and swelling of the right elbow The movement of the right upper extremity causes pain in the elbow Denies any fever and/or chills, any nausea and/or vomiting 11/29 The patient was seen and examined in medical floor His right elbow remains inflamed and swelled Pain has been a little bit better as of today Denies any fever and/or chills 11/30 The patient was seen and examined in the medical floor His condition has been improving with decreasing pain of the right elbow and swelling in the adjoining area Aspiration revealed positive for gram-positive cocci and the patient will have drainage of the elbow today 12/01 The patient was seen and examined in medical floor He is a status post right elbow irrigation and debridement with synovectomy for septic arthritis Has been complaining of some pain in the right elbow but he can move it around Denies any fever and/or chills Review of Systems Review of Systems: All systems reviewed and are unremarkable except as noted below Musculoskeletal: Swelling and redness involving the right elbow. Any movement of the right elbow is moderately painful Physical Exam Physical Exam: Minimal distress at rest Constitutional: well developed and well nourished; no acute distress Eyes: PERRL, conjunctivae normal, anicteric sclerae ENMT: external ear and nose normal, oropharynx normal Neck: trachea midline, no thyromegaly Respiratory: normal respiratory effort Auscultation: lungs clear to auscultation bilaterally Cardiovascular: Rate/Rhythm: regular rate and regular rhythm Gastrointestinal (Abdomen): Inspection/Auscultation: abdomen normal to inspection Musculoskeletal: Extremities: + joint enlargement (Right elbow is bandaged status post debridement with a drain in situ) Lymphatic: no cervical or axillary lymphadenopathy Results & Data Vital Signs (Past 12 Hours) Vital Signs Temp Pulse Pulse Resp BP Pulse Ox 12/01/18 14:50 36.7 C 62 15 168/84 H 97 12/01/18 14:28 179/93 H 12/01/18 12:14 180/87 H 12/01/18 11:26 36.9 C 67 15 183/98 H 99 12/01/18 07:50 36.6 C 68 16 176/88 H 97 12/01/18 05:25 65 152/92 H Laboratory Results Short CBC 12/01/18 Range/Units 06:01 WBC 8.85 (4.8-10.8) K/uL Hgb 11.5 L (14.0-18.0) g/dL Hct 33.8 L (42-52) % Plt Count 213 (130-400) K/uL BMP 12/01/18 06:01 Sodium 137 Potassium 3.9 Chloride 103 Carbon Dioxide 25 BUN 20 H Creatinine 1.29 Glucose 98 Calcium 8.5 Medications Administered Current Inpatient Medications Acetaminophen (Tylenol) 650 mg PO Q4H PRN PRN Reason: pain/fever Stop: 12/28/18 07:26 Atenolol (Tenormin) 100 mg PO DAILY [facility] Stop: 12/28/18 08:59 Last Admin: 12/01/18 08:15 Dose: 100 mg Documented by: Atorvastatin Calcium (Lipitor) 20 mg PO PM ALEKSANDRA Stop: 12/28/18 20:59 Last Admin: 11/30/18 20:42 Dose: 20 mg Documented by: Bisacodyl (Dulcolax) 10 mg MO DAILY PRN PRN Reason: Constipation Stop: 12/30/18 18:14 Clonazepam (Klonopin) 0.5 mg PO DAILY PRN PRN Reason: Anxiety Stop: 12/28/18 07:26 Clonazepam (Klonopin) 1 mg PO HS PRN PRN Reason: RESTLESSNESS Stop: 12/28/18 07:26 Last Admin: 11/28/18 22:52 Dose: 1 mg Documented by: Clonidine HCl (Catapres) 0.1 mg PO Q4H PRN PRN Reason: Hypertension Stop: 12/31/18 03:23 Last Admin: 12/01/18 14:31 Dose: 0.1 mg Documented by: Clonidine HCl (Catapres) 0.1 mg PO BID [facility] Stop: 12/31/18 09:14 Last Admin: 12/01/18 09:27 Dose: 0.1 mg Documented by: Diphenhydramine HCl (Benadryl Capsule) 25 mg PO Q8H PRN PRN Reason: Itching Stop: 12/30/18 18:14 Docusate Sodium (Colace) 100 mg PO BID [facility] Stop: 12/30/18 20:59 Last Admin: 12/01/18 08:18 Dose: 100 mg Documented by: Ferrous Sulfate (Feosol) 325 mg PO DAILY [facility] Stop: 12/28/18 08:59 Last Admin: 12/01/18 08:16 Dose: 325 mg Documented by: Gadobutrol (Gadavist 65ml) 8.5 ml IV ONCE PRN PRN Reason: Interaction Checking Stop: 12/02/18 20:42 Last Admin: 11/28/18 20:43 Dose: 8.5 ml Documented by: Hydromorphone HCl (Dilaudid) 0.5 mg IV Q3H PRN PRN Reason: Pain Stop: 12/12/18 07:26 Last Admin: 11/29/18 12:05 Dose: 0.5 mg Documented by: Vancomycin HCl 1,250 mg/ (Sodium Chloride) 275 mls @ 125 mls/hr IV Q16H [facility] Stop: 01/11/19 00:59 Magnesium Hydroxide (Milk Of Magnesia) 30 ml PO Q6H PRN PRN Reason: Constipation Stop: 12/30/18 18:14 Metoclopramide HCl (Reglan) 10 mg IV Q6H PRN PRN Reason: Nausea And Vomiting Stop: 12/30/18 18:14 Miscellaneous Information (Consult) 1 ea N/A UD PRN PRN Reason: Consult Stop: 12/30/18 18:20 Multivitamins (Multivitamin Tab) 1 tab PO DAILY [facility] Stop: 12/28/18 08:59 Last Admin: 12/01/18 08:16 Dose: 1 tab Documented by: Naloxone HCl (Narcan) 0.1 mg IV Q5M PRN PRN Reason: Oversedation/Resp Depression Stop: 12/30/18 18:14 Ondansetron HCl (Zofran) 4 mg IV Q6H PRN PRN Reason: Nausea Stop: 12/28/18 07:26 Ondansetron HCl (Zofran) 4 mg IV Q6H PRN PRN Reason: Nausea And Vomiting Stop: 12/30/18 18:14 Oxycodone HCl (Roxicodone Immediate Rel) 5 - 10 mg PO Q4H PRN PRN Reason: Pain Stop: 12/14/18 18:14 [facility]oprazole S[facility] ([facility]) [facility] Stop: 12/28/18 07:59 Last Admin: 12/01/18 05:28 Dose: 40 mg Documented by: Polyethylene Glycol (Miralax Powder Packet) 17 gm PO DAILY PRN PRN Reason: Constipation Stop: 12/28/18 07:26 Sennosides (Senokot) 17.2 mg PO HS [facility] Stop: 12/30/18 20:59 Last Admin: 11/30/18 20:42 Dose: 17.2 mg Documented by: Thiamine HCl (Vitamin B-1) 100 mg PO QAM [facility] Stop: 12/28/18 08:59 Last Admin: 12/01/18 08:15 Dose: 100 mg Documented by: Vitamin D (Vitamin D3) 1,000 units PO DAILY [facility] Stop: 12/28/18 08:59 Last Admin: 12/01/18 08:15 Dose: 1,000 units Documented by:
[2018-12-01] MEDS: SENNA 8.6 MG TAB PO SCH (20:51)
[2018-12-01] MEDS: ATORVASTATIN 20 MG TAB PO SCH (20:52)
[2018-12-02] MEDS ORDERED: HydrALAZINE HCL 20 MG/ML VIAL IV ONE (00:36)
[2018-12-02] MEDS ORDERED: HydrALAZINE HCL 20 MG/ML VIAL ONE (00:40)
[2018-12-02] MEDS ORDERED: VANCOMYCIN HCL 1,250 MG in SODIUM CHLORIDE 0.9% 250 ML IV SCH (01:00)
[2018-12-02] MEDS: cloNIDine HCl 0.1 MG TAB PO PRN (02:32)
[2018-12-02] MEDS: PANTOprazole 40 MG TAB PO SCH (05:45)
[2018-12-02 07:08] LABS: Basophils # (auto) 0.03 K/uL (0-0.2); Basophils % (auto) 0.4 %; Eosinophils # (auto) 0.26 K/uL (0-0.5); Eosinophils % (auto) 3.1 %; Hematocrit (blood only) 37.3 % (42-52); Hemoglobin 12.7 g/dL (14.0-18.0); Immature Granulocytes # (auto) 0.03 K/uL (0.00-0.02); Immature Granulocytes % (auto) 0.4 %; Lymphocytes # (auto) 1.37 K/uL (1.2-3.4); Lymphocytes % (auto) 16.6 %; Mean Corpuscular Volume 94.4 fL (80-100); Mean Platelet Volume 9.3 fL (7.4-10.4); Monocytes # (auto) 0.95 K/uL (0.11-0.59); Monocytes % (auto) 11.5 %; Neutrophils # (auto) 5.62 K/uL (1.4-6.5); Platelet Count 226 K/uL (130-400); RDW Coefficient of Variation 13.1 % (11.5-14.5); RDW Standard Deviation 45.3 fL (36.4-46.3); Red Blood Count 3.95 M/uL (4.7-6.1); White Blood Count 8.26 K/uL (4.8-10.8)
[2018-12-02] MEDS: THIAMINE HCL 100 MG TAB PO SCH (07:33)
[2018-12-02] MEDS: CHOLECALCIFEROL 1,000 UNITS TAB PO SCH (07:33)
[2018-12-02] MEDS: MULTIVITAMIN TAB PO SCH (07:33)
[2018-12-02] MEDS: FERROUS SULFATE 325 MG TAB PO SCH (07:33)
[2018-12-02] MEDS: ATENOLOL 50 MG TABLET PO SCH (07:33)
[2018-12-02] MEDS: DOCUSATE SODIUM 100 MG CAP PO SCH (07:34)
[2018-12-02] MEDS: cloNIDine HCl 0.1 MG TAB PO SCH (07:34)
[2018-12-02 07:38] LABS: BUN Creatinine Ratio 14.5 (10-20); Calcium 9.1 mg/dl (8.5-10.1); Est GFR (African American) 71.2; Est GFR (Non-African American) 61.5; Potassium 3.9 mmol/L (3.5-5.1)
[2018-12-02] MEDS ORDERED: cloNIDine HCl 0.1 MG TAB PO ONE (08:15)
[2018-12-02] MEDS ORDERED: DOXYCYCLINE HYCLATE 100 MG CAP PO ONE (11:00)
--- NOTE | 2018-12-02 11:55 | Orthopedic Progress Note ---
Date of Service December 02, 2018 Assessment & Plan (1) Effusion of elbow joint, right: POD 2 s/p I/D Right Elbow No further surgery needed. Antibx as per ID/MED team. Daily dressing changes with adpatic,4x4's, tape, mesh tubigrip covering Follow up with Dr Lock in 10-14 days from surgery. (2) Degenerative joint disease of elbow, right: Subjective POD 2 s/p I/D Right Septic Elbow. Pt sitting up at bedside eating lunch. States he has a bit more hand swelling today but it comes and goes. Pain controlled. No other complaints. Physical Exam Physical Exam: Dressing removed earlier by staff. Drain removed as well. Incision with Mild swelling. Mild erythema. No drainage. Pt has good ROM of the elbow without discomfort. Mild dependent swelling in the right hand. Good ROM of fingers. NV intact. Cap refill < 2 seconds. Results & Data Vital Signs (Past 12 Hours) Vital Signs Temp Pulse Pulse Resp BP Pulse Ox 12/02/18 07:59 37.0 C 98 H 18 157/72 H 97 12/02/18 05:15 68 181/86 H 12/02/18 02:11 71 181/87 H 12/02/18 01:20 186/91 H 12/02/18 00:14 57 L 190/92 H
[2018-12-02] MEDS ORDERED: VANCOMYCIN TROUGH ONE ×2 (12:30→16:30)
--- NOTE | 2018-12-02 12:50 | Hospitalist Progress Note ---
Date of Service December 02, 2018 Assessment & Plan (1) Septic arthritis of elbow, right: Presented with redness, swelling and pain of her right elbow following injury Has been on antibiotic as an outpatient for a long time Joint aspiration did show possible septic arthritis Status post irrigation of the right elbow joint. POD #2 Clinically much better Appreciate ID input and recommendation We will give doxycycline for a total of 21 days on discharge (2) Right elbow pain: Admitted with the right elbow injury due to heat by a storm door X-ray of the elbow showed possible fracture but CT scan did not confirm that May need to do further imaging studies to exclude any fracture Appreciate Ortho input and recommendation Doubt any septic arthritis Minimal fluid clinically-management as per MRI of the right elbow: As below but did not show any fracture and/or dislocation 1. Motion degraded exam. 2. 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 Multiple intra-articular loose bodies are better seen on comparison CT. 3. Extensive subcutaneous, deep tissue and intramuscular edema about the elbow and forearm with associated enhancement. Synovial thickening and enhancement is also noted. Primary differential considerations would include infectious or inflammatory myositis/cellulitis. Correlate clinically to exclude infectious arthropathy or inflammatory arthropathy. 4. No acute fracture or dislocation. 5. High-grade partial-thickness tear of the insertional common extensor tendon, age-indeterminate. 6. Moderate common extensor and mild common flexor tendinosis. Status post aspiration from the right elbow joint-await Gram stain and culture sensitivity including other results We will continue current antibiotic Status post aspiration of the right elbow which showed gram-positive cocci Status post right elbow irrigation, debridement and synovectomy for septic arthritis(the full-blown symptoms were suppressed due to outpatient use of antibiotic) Clinically better today Appreciate ID input and recommendation Likely be discharged tomorrow on oral doxycycline for 21 days in total As above (3) Alcoholism /alcohol abuse: Does not quantify how much alcohol he has been drinking He does not have any intoxication and/or withdrawal symptoms Remains stable without any withdrawal symptoms (4) Hypertension: Blood pressure remains controlled We will continue current medications Noted to have very high blood pressure likely secondary to withdrawal from alcohol Clonidine 0.1 mg twice daily has been added We will continue with clonidine 0.1 mg twice daily on discharge Blood pressure is likely to be improved at home as he documented to have whitecoat syndrome Hyperlipidemia Continue current meds Anxiety stable Has been on Klonopin No anxiety at this time DVT prophylaxis SCDs and increase ambulation IND of the right elbow today as aspiration showed gram-positive cocci Subjective 11/28 The patient was seen and examined in the medical floor He has been complaining of pain and swelling of the right elbow The movement of the right upper extremity causes pain in the elbow Denies any fever and/or chills, any nausea and/or vomiting 11/29 The patient was seen and examined in medical floor His right elbow remains inflamed and swelled Pain has been a little bit better as of today Denies any fever and/or chills 11/30 The patient was seen and examined in the medical floor His condition has been improving with decreasing pain of the right elbow and swelling in the adjoining area Aspiration revealed positive for gram-positive cocci and the patient will have drainage of the elbow today 12/01 The patient was seen and examined in medical floor He is a status post right elbow irrigation and debridement with synovectomy for septic arthritis Has been complaining of some pain in the right elbow but he can move it around Denies any fever and/or chills 12/02 Patient was seen and examined the medical floor His elbow pain and swelling are much improved He has been moving right elbow with minimal pain Noted to have very high blood pressure that could be situational and/or secondary to alcohol withdrawal Will be discharged this afternoon if the blood pressure is improved Review of Systems Review of Systems: All systems reviewed and are unremarkable except as noted below Musculoskeletal: Swelling and redness involving the right elbow. Any movement of the right elbow is moderately painful Physical Exam Physical Exam: No apparent distress at rest Constitutional: well developed and well nourished; no acute distress Eyes: PERRL, conjunctivae normal, anicteric sclerae ENMT: external ear and nose normal, oropharynx normal Neck: trachea midline, no thyromegaly Respiratory: normal respiratory effort Auscultation: lungs clear to auscultation bilaterally Cardiovascular: Rate/Rhythm: regular rate and regular rhythm Gastrointestinal (Abdomen): Inspection/Auscultation: abdomen normal to inspection Musculoskeletal: Extremities: + joint enlargement (Right elbow is bandaged status post debridement with a drain in situ-decreasing swelling and pain) Lymphatic: no cervical or axillary lymphadenopathy Results & Data Vital Signs (Past 12 Hours) Vital Signs Temp Pulse Resp BP Pulse Ox 12/02/18 07:59 37.0 C 98 H 18 157/72 H 97 07/30/19 05:15 68 181/86 H 12/02/18 02:11 71 181/87 H 12/02/18 01:20 186/91 H Laboratory Results Short CBC 12/02/18 Range/Units 06:58 WBC 8.26 (4.8-10.8) K/uL Hgb 12.7 L (14.0-18.0) g/dL Hct 37.3 L (42-52) % Plt Count 226 (130-400) K/uL BMP 12/02/18 06:58 Sodium 136 Potassium 3.9 Chloride 102 Carbon Dioxide 27 BUN 17 Creatinine 1.15 Glucose 99 Calcium 9.1 Medications Administered Current Inpatient Medications Acetaminophen (Tylenol) 650 mg PO Q4H PRN PRN Reason: pain/fever Stop: 12/28/18 07:26 Last Admin: 12/02/18 00:16 Dose: 650 mg Documented by: Atenolol (Tenormin) 100 mg PO DAILY ALEKSANDRA Stop: 12/28/18 08:59 Last Admin: 12/02/18 07:33 Dose: 100 mg Documented by: Atorvastatin Calcium (Lipitor) 20 mg PO PM ALEKSANDRA Stop: 12/28/18 20:59 Last Admin: 12/01/18 20:52 Dose: 20 mg Documented by: Bisacodyl (Dulcolax) 10 mg [place] DAILY PRN PRN Reason: Constipation Stop: 12/30/18 18:14 Clonazepam (Klonopin) 0.5 mg PO DAILY PRN PRN Reason: Anxiety Stop: 12/28/18 07:26 Clonazepam (Klonopin) 1 mg PO HS PRN PRN Reason: RESTLESSNESS Stop: 12/28/18 07:26 Last Admin: 11/28/18 22:52 Dose: 1 mg Documented by: Clonidine HCl (Catapres) 0.1 mg PO Q4H PRN PRN Reason: Hypertension Stop: 12/31/18 03:23 Last Admin: 12/02/18 02:32 Dose: 0.1 mg Documented by: Clonidine HCl (Catapres) 0.2 mg PO BID ALEKSANDRA Stop: 01/01/19 20:59 Diphenhydramine HCl (Benadryl Capsule) 25 mg PO Q8H PRN PRN Reason: Itching Stop: 12/30/18 18:14 Docusate Sodium (Colace) 100 mg PO BID [facility] Stop: 12/30/18 20:59 Last Admin: 12/02/18 07:34 Dose: Not Given Documented by: Doxycycline Hyclate (Vibramycin) 100 mg PO BID@0700,1900 [facility] Stop: 01/13/19 18:59 Ferrous Sulfate (Feosol) 325 mg PO DAILY [facility] Stop: 12/28/18 08:59 Last Admin: 12/02/18 07:33 Dose: 325 mg Documented by: Gadobutrol (Gadavist 65ml) 8.5 ml IV ONCE PRN PRN Reason: Interaction Checking Stop: 12/02/18 20:42 Last Admin: 11/28/18 20:43 Dose: 8.5 ml Documented by: Hydromorphone HCl (Dilaudid) 0.5 mg IV Q3H PRN PRN Reason: Pain Stop: 12/12/18 07:26 Last Admin: 11/29/18 12:05 Dose: 0.5 mg Documented by: Magnesium Hydroxide (Milk Of Magnesia) 30 ml PO Q6H PRN PRN Reason: Constipation Stop: 12/30/18 18:14 Metoclopramide HCl (Reglan) 10 mg IV Q6H PRN PRN Reason: Nausea And Vomiting Stop: 12/30/18 18:14 Multivitamins (Multivitamin Tab) 1 tab PO DAILY ALEKSANDRA Stop: 12/28/18 08:59 Last Admin: 12/02/18 07:33 Dose: 1 tab Documented by: Naloxone HCl (Narcan) 0.1 mg IV Q5M PRN PRN Reason: Oversedation/Resp Depression Stop: 12/30/18 18:14 Ondansetron HCl (Zofran) 4 mg IV Q6H PRN PRN Reason: Nausea Stop: 12/28/18 07:26 Ondansetron HCl (Zofran) 4 mg IV Q6H PRN PRN Reason: Nausea And Vomiting Stop: 12/30/18 18:14 Oxycodone HCl (Roxicodone Immediate Rel) 5 - 10 mg PO Q4H PRN PRN Reason: Pain Stop: 12/14/18 18:14 [facility]: 12/28/18 07:59 Last Admin: 12/02/18 05:45 Dose: 40 mg Documented by: Polyethylene Glycol (Miralax Powder Packet) 17 gm PO DAILY PRN PRN Reason: Constipation Stop: 12/28/18 07:26 Sennosides (Senokot) 17.2 mg PO HS [facility] Stop: 12/30/18 20:59 Last Admin: 12/01/18 20:51 Dose: 17.2 mg Documented by: Thiamine HCl (Vitamin B-1) 100 mg PO QAM [facility] Stop: 12/28/18 08:59 Last Admin: 12/02/18 07:33 Dose: 100 mg Documented by: Vitamin D (Vitamin D3) 1,000 units PO DAILY [facility] Stop: 12/28/18 08:59 Last Admin: 12/02/18 07:33 Dose: 1,000 units Documented by:
--- NOTE | 2018-12-02 17:39 | Discharge Summary ---
Date of Service December 02, 2018 Admission HPI Per Admitting Provider DICTATED BY: Nadeem Adams MD DATE OF ADMISSION: 11/28/2018 CHIEF COMPLAINT: Right elbow injury. 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 The patient lives alone. Yesterday in the evening, he tried to close the storm door, but it came back and hit his right elbow. At that time, it seemed okay, but as in the night after supper he noted to have severe pain. The pain got worse and he came to the ER. X-ray was done, unofficial report is unremarkable. The patient even after significant pain medications still had a lot of pain. He was placed in a sling, but still movement is causing pain in the elbow, so there is question of infection as well as leukocytosis, so we are called for admission. The patient is afebrile. Denies any headaches. Has macular degeneration, but can move around his house okay. No runny nose, no sore throat, no cough, no difficulty swallowing. Appetite is okay. No chest pain or shortness of breath. No nausea, no abdominal pain. Normal bowel and bladder movements. Ambulates okay. Currently resting comfortable and hemodynamically stable. Admission Exam Per Admitting Provider GENERAL: The patient is of moderate build, not in acute distress. VITAL SIGNS: Temperature 37.1, pulse 68, respiratory rate 20, blood pressure 166/82, oxygen 96% room air. HEENT: No pallor, no icterus. Pupils equal, round, reactive to light. NECK: No JVD, no neck masses, no carotid bruits. CARDIOVASCULAR SYSTEM: S1, S2 heard, regular rate and rhythm, no murmur, no gallop. RESPIRATORY SYSTEM: Normal AP diameter. No accessory muscle use. No wheezing, no crackles. ABDOMEN: Soft, bowel sounds present, nontender. No distention. CENTRAL NERVOUS SYSTEM: Cranial nerves II-XII grossly intact. Nonfocal. EXTREMITIES: Right elbow is somewhat warm and painful movements. No erythema or edema seen. Principal Diagnosis Septic arthritis involving the right elbow, status post incision and drainage of right elbow effusion, hypertension Discharge Exam Constitutional well developed and well nourished; no acute distress Eyes PERRL, conjunctivae normal, anicteric sclerae ENMT external ear and nose normal, oropharynx normal Neck trachea midline, no thyromegaly Respiratory normal respiratory effort Auscultation: lungs clear to auscultation bilaterally Cardiovascular Rate/Rhythm: regular rate and regular rhythm Gastrointestinal (Abdomen) Inspection/Auscultation: abdomen normal to inspection Musculoskeletal Extremities: + joint enlargement (Right elbow is bandaged status post debridement with a drain in situ-decreasing swelling and pain) Lymphatic no cervical or axillary lymphadenopathy Discharge Data Allergies Allergy/AdvReac Type Severity Reaction Status Date / Time meclizine Allergy Intermediate Swelling Verified 11/28/18 03:35 of tongue. aspirin AdvReac Unknown History of Verified 11/28/18 03:35 ulcers Consultations 11/28/18 05:07 ED Decision to Admit Stat 11/28/18 07:27 Consult Case Management - Discharge Planning Routine 11/28/18 08:00 Consult Orthopedic Surgery Routine 11/30/18 18:16 Consult Case Management - Discharge Planning Routine 12/01/18 10:19 Consult Infectious Diseases Routine Procedures Performed Operation Date: 11/30/18 16:30 Actual Procedures p Right Elbow Irrigation and debridement, Synovectomy(Right) - Rolando Lock, Ordered Studies 11/28/18 07:27 CT elbow RT wo con Urgent 11/28/18 13:58 MR elbow RT wo/w con Routine Hospital Course (1) Septic arthritis of elbow, right: Presented with redness, swelling and pain of her right elbow following injury Has been on antibiotic as an outpatient for a long time Joint aspiration did show possible septic arthritis Status post irrigation of the right elbow joint. POD #2 Clinically much better Appreciate ID input and recommendation We will give doxycycline for a total of 21 days on discharge (2) Right elbow pain: Admitted with the right elbow injury due to heat by a storm door X-ray of the elbow showed possible fracture but CT scan did not confirm that May need to do further imaging studies to exclude any fracture Appreciate Ortho input and recommendation Doubt any septic arthritis Minimal fluid clinically-management as per MRI of the right elbow: As below but did not show any fracture and/or dislocation 1. Motion degraded exam. 2. 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 Multiple intra-articular loose bodies are better seen on comparison CT. 3. Extensive subcutaneous, deep tissue and intramuscular edema about the elbow and forearm with associated enhancement. Synovial thickening and enhancement is also noted. Primary differential considerations would include infectious or inflammatory myositis/cellulitis. Correlate clinically to exclude infectious arthropathy or inflammatory arthropathy. 4. No acute fracture or dislocation. 5. High-grade partial-thickness tear of the insertional common extensor tendon, age-indeterminate. 6. Moderate common extensor and mild common flexor tendinosis. Status post aspiration from the right elbow joint-await Gram stain and culture sensitivity including other results We will continue current antibiotic Status post aspiration of the right elbow which showed gram-positive cocci Status post right elbow irrigation, debridement and synovectomy for septic arthritis(the full-blown symptoms were suppressed due to outpatient use of antibiotic) Clinically better today Appreciate ID input and recommendation Likely be discharged tomorrow on oral doxycycline for 21 days in total As above (3) Alcoholism /alcohol abuse: Does not quantify how much alcohol he has been drinking He does not have any intoxication and/or withdrawal symptoms Remains stable without any withdrawal symptoms (4) Hypertension: Blood pressure remains controlled We will continue current medications Noted to have very high blood pressure likely secondary to withdrawal from alcohol Clonidine 0.1 mg twice daily has been added We will continue with clonidine 0.1 mg twice daily on discharge Blood pressure is likely to be improved at home as he documented to have whitecoat syndrome Hyperlipidemia Continue current meds Anxiety stable Has been on Klonopin No anxiety at this time DVT prophylaxis SCDs and increase ambulation IND of the right elbow today as aspiration showed gram-positive cocci Total Time Total Time Spent Total Time Spent (In Minutes): 35 minutes Total Time Includes: Examination of the Patient, Discharge Planning, Medication Reconciliation and Communication With Other Providers Discharge Plan Discharge Items Patient Disposition: Home - Home Health Services Reason For Visit: RIGHT ELBOW PAIN Discharge Diagnosis: Septic arthritis involving the right elbow, status post incision and drainage of right elbow effusion, hypertension Condition: Good Discharge Goals: Decrease discomfort, Increase independence and Improve nutritional status Activity: Resume your previous activity Lifting Comment: No more than a glass of water until seen back in the office. Non-emergency contact: Primary Care Provider Call non-emergency contact if: you have any medication questions and your symptoms worsen Follow-up/Referrals: Rolando Lock DO [Surgeon] - (Call to schedule an appointment for 10-14 days after discharge.) Demarco Guallpa MD [Primary Care Provider] - 12/09/18 10:05 am Diet: Regular Addtl Provider Instructions: Keep dressing clean and dry. Change dressing daily. Use adaptic vaseline gauze (non stick covering), 4x4's, Tape, Tubagrip mesh bandage if needed ( or lisa wrap) Ok to shower in 72 hours from the day of surgery, (Saturday12/03/18) if you are having minimal drainage. Do not scrub the wound. Clean around the wound and pad dry. No tub baths. Do not soak the wound. No creams or ointments on the wound. Gentle range of motion is ok with the right elbow. Increase as tolerated. Keep the arm elevated when at rest to cut down on swelling in the elbow,forearm, and hand. Follow up with Dr Lokc in 10-14 days from the day of surgery. Please call for appointment. [phone] Prescriptions: New clonidine HCl 0.1 mg Tablet 0.1 mg PO BID 30 Days Qty: 60 RF: 0 doxycycline hyclate 100 mg Capsule 100 mg PO BID@0700,1900 21 Days Qty: 42 RF: 0 thiamine HCl (vitamin B1) [Vitamin B-1] 100 mg Tablet 100 mg PO QAM 30 Days Qty: 30 RF: 0 oxycodone 5 mg Tablet 5 mg PO Q4H PRN (Reason: pain) 3 Days Qty: 15 RF: 0 folic acid 1 mg tablet 1 mg PO DAILY Qty: 30 RF: 0 Continued sennosides [Natural Veg Laxative(sennosid)] 8.6 mg Tablet 8.6 mg PO BID PRN (Reason: Constipation) RF: 0 atorvastatin 20 mg Tablet 20 mg PO PM RF: 0 clonazepam 1 mg Tablet 1 mg PO HS PRN (Reason: RESTLESSNESS) RF: 0 clonazepam 1 mg Tablet 0.5 mg PO DAILY PRN (Reason: Anxiety) RF: 0 acetaminophen [Tylenol Extra Strength] 500 mg Tablet 500 - 1,000 mg PO DIRECTED PRN (Reason: Pain) RF: 0 ferrous sulfate 325 mg (65 mg iron) Tablet 325 mg PO DAILY RF: 0 omeprazole 20 mg Capsule,Delayed Release(Dr/Ec) 20 mg PO DAILYBB RF: 0 lorazepam 1 mg Tablet 1 mg PO DIRECTED PRN (Reason: BEFORE TRAVELING) RF: 0 diphenhydramine-acetaminophen [Tylenol PM Extra Strength] 25-500 mg Tablet 1 tab PO DIRECTED PRN (Reason: Pain) RF: 0 atenolol 50 mg Tablet 100 mg PO DAILY RF: 0 cholecalciferol (vitamin D3) [D-Vi-Tish] 10 mcg/mL (400 unit/mL) Drops 400 unit PO DAILY RF: 0 Men's One Daily 400-20-300 mcg Tablet 1 tab PO DAILY RF: 0 Stand-Alone Forms: [facility]/Other Patient Handouts: Surgery Prevent DVT After Discharge Orders: Discharge Order (Routine); Ordered 12/02/18 Ordered By: Anabel Juarez Admission Data Admit Date/Time: 12/01/18 08:13 Attending Provider: Anabel Juarez Admit Provider: Nadeem Adams Primary Care Provider: Demarco Guallpa Other Providers: Nadeem Adams ; Rolando Lock Evan T. ; Sailaja Zeng Service: Medical Other Interventions: Discharge Summary Assessment (RN) Last Done: 12/02/18 14:26 DC Date/Time DO NOT enter until pt leaves facility: 12/02/18 15:16
[2018-12-02] MEDS ORDERED: DOXYCYCLINE HYCLATE 100 MG CAP PO SCH (19:00)
[2018-12-02] MEDS ORDERED: cloNIDine HCl 0.1 MG TAB PO SCH (21:00)
[2018-12-03 18:28] LABS: Lyme DNA Source Synovial Fluid
== END 2018-12-02 15:16 | disposition home health service (06) | DRG 502 ==
LOC: 3N 02:59 → ED 02:59 → SUATTDRO 05:44 → 3N 06:13

== ENCOUNTER 2022-05-16 10:16 | Inpatient (IN) ==
[2022-05-16] MEDS ORDERED: ONDANSETRON INJ 2 MG/ML 2 ML VIAL IV STA (10:46)
[2022-05-16] MEDS ORDERED: SODIUM CHLORIDE 0.9% 1000ML 1,000 ML IV ONE (10:46)
--- NOTE | 2022-05-16 10:54 | Emergency Department Note ---
Impression & Plan Diarrhea, JAROCHO (acute kidney injury), Acute lower GI bleeding ED Provider Note NAME: EM CONCEPCION AGE: 81 SEX: M : 1940 ARRIVES VIA: Walk-In INFORMANT: Patient, ED PROVIDER(S): Rainer Santana DO CHIEF COMPLAINT: Diarrhea HPI: The patient is an 81-year-old male who presented to the emergency department for an evaluation of loose bowel movements. The patient states that he has been having loose bowel movements over the course the last week. He called his family doctor and was advised to take [id number]-nfs-msojnvb medication but if it got worse or kept going greater than a week the patient was instructed to go to the emergency department. The patient's had some dark bowel movements. He denies having any chest pain or difficulty breathing. He denies having any vomiting. He said decreased p.o. intake and dizziness. He has had no fever. He was on antibiotics recently for an unrelated illness. He was also seen in our facility recently for a knee problem for which she was started on pain medication. ROS: See above HPI for pertinent positives & negatives. A total of 10 systems re viewed and were otherwise negative. PAST MEDICAL HISTORY: See Below PAST SURGICAL HISTORY: See Below FAMILY HISTORY: See Below SOCIAL HISTORY: See Below HOME MEDICATIONS: See Below ALLERGIES: See Below VITALS: See Below PHYSICAL EXAMINATION: GENERAL: Patient is awake alert in no acute distress patient is resting comfortably and showing no signs of anxiety EYES: The conjunctivae are clear. The pupils are round and reactive. EARS, NOSE, MOUTH AND THROAT: The nose is without any evidence of any deformity. Mucous membranes are moist. Tongue is midline. NECK: The neck is nontender and supple. RESPIRATORY: Normal respiratory effort is noted there is no evidence of wheezing rhonchi or rales CARDIOVASCULAR: Regular rate and rhythm noted there no murmurs rubs or gallops normal S1 normal S2. GASTROINTESTINAL: The abdomen is soft and nondistended. Dark stool was noted which was heme positive. MUSCULOSKELETAL/EXTREMITIES: There is no evidence of gross deformity full range of motion is noted in the hips and shoulders. SKIN: There is no obvious evidence of any rash. There are no petechiae, pallor or cyanosis noted. NEUROLOGIC: Patient is awake alert and oriented x3. MEDICAL DECISION MAKING: The patient is an 81-year-old male who presented to the emergency department because of weakness and diarrhea. The patient's had ongoing symptoms for many days. The patient was treated with IV fluids in the emergency department. He initially was found to have hypotension. The patient was also found have an elevated white blood cell count. I discussed the patient's laboratory and radiographic studies with him. He was found to have an elevation in his creat inine compared to baseline. For this reason I feel the patient may require further inpatient management. We are still waiting for a stool specimen to test for C. difficile. [facility] They have agreed to evaluate the patient in the emergency department for further management and disposition. His blood pressure is significantly improved after IV fluids. Triage Nursing notes reviewed. Prior medical records reviewed Vital Signs: reviewed and remarkable for initial hypotension. Differential diagnosis: Diverticulosis, AVM, coagulopathy, colitis, inflammatory bowel disease, malignancy, Hayley-Esposito tear, esophagitis, peptic ulcer disease, variceal bleed, gastritis, epistaxis, fissure, hemorrhoids, as well as other pathologies. ER treatment provided: See below Diagnostics interpreted by me: ECG: EKG was obtained in the emergency department. My interpretation is sinus rhythm at 63 bpm. First-degree AV block was noted. Poor R wave progression was noted. This was compared to a tracing from November 30, 2018. No significant changes were noted. Cardiac Monitoring: An order was placed for continuous cardiac monitoring. The monitor shows a rate of 68 bpm with sinus rhythm. Laboratory studies: As stated above and show below. Imaging studies: See below. Radiographic imaging was reviewed by myself Consultation(s): I discussed this case with Rosi who [facility]. Past Med/Surg History Medical History (Updated 05/16/22 @ 13:08 by Rainer Santana DO) Dyslipidemia History of carcinoma of bladder History of colon polyps Hypertension Macular degeneration Tinnitus Surgical History Status post lumbar surgery Social History Smoking Status: Never smoker Cigarettes Per Day: 1-2 per day up to 12 per day, intermittently; Hx Alcohol Use: Yes Hx Substance Use: No Preferred Language: Yakut Communication Ability: Effective [employer] Consultant Required: Yes Beliefs That Will Affect Care: None marital status: / Current Living Situation: Alone Feels Safe at Home: Yes Assistive Devices: Denture - Upper and Denture - Lower Allergies Allergies Allergy/AdvReac Type Severity Reaction Status Date / Time meclizine Allergy Intermediate Swelling Verified 11/28/18 03:35 of tongue. aspirin AdvReac Unknown History of Verified 11/28/18 03:35 ulcers Home Meds Home Medications Medication Instructions Recorded Confirmed acetaminophen 500 mg tablet 500 - 1,000 mg PO DIRECTED PRN 11/28/18 11/28/18 (Tylenol Extra Strength) Pain atenolol 50 mg tablet 100 mg PO DAILY 11/28/18 11/28/18 atorvastatin 20 mg tablet 20 mg PO PM 11/28/18 11/28/18 cholecalciferol (vitamin D3) 10 400 unit PO DAILY 11/28/18 11/28/18 mcg/mL (400 unit/mL) oral drops (D-Vi-Tish) clonazepam 1 mg tablet 0.5 mg PO DAILY PRN Anxiety 11/28/18 11/28/18 clonazepam 1 mg tablet 1 mg PO HS PRN RESTLESSNESS 11/28/18 11/28/18 diphenhydramine 25 1 tab PO DIRECTED PRN Pain 11/28/18 11/28/18 mg-acetaminophen 500 mg tablet (Tylenol PM Extra Strength) ferrous sulfate 325 mg (65 mg 325 mg PO DAILY 11/28/18 11/28/18 iron) tablet lorazepam 1 mg tablet 1 mg PO DIRECTED PRN BEFORE 11/28/18 11/28/18 TRAVELING yfygomlc-nbabyryk-hdffw acid 400 1 tab PO DAILY 11/28/18 11/28/18 mcg-vit K 20 mcg-lycop 300 mcg tablet (Men's One Daily) omeprazole 20 mg capsule,delayed 20 mg PO DAILYBB 11/28/18 11/28/18 release sennosides 8.6 mg tablet (Natural 8.6 mg PO BID PRN Constipation 11/28/18 11/28/18 Vegetable Laxative (sennosides)) Previous Rx's Medication Instructions Recorded folic acid 1 mg tablet 1 mg PO DAILY #30 tabs 12/02/18 clindamycin HCl 300 mg capsule 300 mg PO TID #90 caps 12/16/18 oxycodone 5 mg tablet 5 mg PO Q6H PRN pain #12 tabs 05/02/22 Results & Data (ED) Vital Signs Vital Signs - 24 hr 05/16/22 10:20 05/16/22 10:45 05/16/22 10:59 Temperature 36.8 C Temperature Source Temporal Artery Scan Pulse Rate 72 Pulse Rate [Apical] 66 62 Respiratory Rate 14 17 12 Blood Pressure 87/62 L Blood Pressure [Left Arm] 116/67 122/76 Blood Pressure Mean 70 Blood Pressure Mean [Left Arm] 83 91 Pulse Oximetry 97 97 97 Oxygen Delivery Method Room Air Room Air Sepsis Recent Fever Within 48 Hours No Sepsis New/Unexplained Change in Mental Status No Sepsis Action Taken by Nursing No Action Required 05/16/22 11:01 05/16/22 11:25 05/16/22 12:48 Temperature Temperature Source Pulse Rate Pulse Rate [Apical] 65 65 72 Respiratory Rate 18 18 18 Blood Pressure Blood Pressure [Left Arm] 122/70 141/76 H Blood Pressure Mean Blood Pressure Mean [Left Arm] 87 97 Pulse Oximetry 96 93 Oxygen Delivery Method Room Air Room Air Sepsis Recent Fever Within 48 Hours Sepsis New/Unexplained Change in Mental Status Sepsis Action Taken by Nursing 05/16/22 14:18 Temperature Temperature Source Pulse Rate Pulse Rate [Apical] 68 Respiratory Rate 15 Blood Pressure Blood Pressure [Left Arm] 121/66 Blood Pressure Mean Blood Pressure Mean [Left Arm] 84 Pulse Oximetry 99 Oxygen Delivery Method Room Air Sepsis Recent Fever Within 48 Hours Sepsis New/Unexplained Change in Mental Status Sepsis Action Taken by Shelter Medications Current Medication List: was personally reviewed by me Laboratory Data Attestation: I reviewed the patient's lab results. 05/16/22 10:48 05/16/22 10:48 Lab Results 05/16/22 05/16/22 05/16/22 Range/Units 10:48 10:48 10:48 WBC 20.73 H (4.8-10.8) K/ul RBC 4.41 L (4.63-6.08) M/uL Hgb 14.7 (14.0-18.0) g/dl Hct 41.7 (40.1-51.0) % MCV 94.6 (80.0-100.0) fL MCH 33.3 (25.0-34.0) pg MCHC 35.3 (32.0-36.0) g/dL RDW Std Deviation 43.9 (36.4-46.3) fL RDW Coeff of Hemanth 12.6 (11.5-14.5) % Plt Count 478 H (130-400) K/uL MPV 9.9 (9.4-12.4) fL Immature Gran % (Auto) 1.4 % Neut % (Auto) 81.4 % Lymph % (Auto) 9.5 % Morris % (Auto) 7.1 % Eos % (Auto) 0.2 % Baso % (Auto) 0.4 % Neut # (Auto) 16.84 H (1.4-6.5) K/uL Lymph # (Auto) 1.97 (1.2-3.4) K/uL Morris # (Auto) 1.48 H (0.24-0.82) K/uL Eos # (Auto) 0.05 (0-0.50) K/uL Baso # (Auto) 0.09 (0-0.2) K/uL Immature Gran # (Auto) 0.30 H (0.00-0.02) K/uL PT 11.8 (9.0-12.0) Seconds INR 1.1 (0.9-1.1) APTT 27.9 (21.0-31.0) Seconds PTT Ratio 1.0 Sodium 130 L (136-145) mmol/L Potassium 4.2 (3.5-5.1) mmol/L Chloride 104 (98-107) mmol/L Carbon Dioxide 16 L (21-32) mmol/L Anion Gap 10 (3-11) BUN 48 H (6-23) mg/dl Creatinine 2.51 H (0.6-1.4) mg/dl Est Cr Clr Drug Dosing Not Reportable Est GFR ( Amer) 27.0 ml/min Est GFR (Non-Af Amer) 23.3 ml/min BUN/Creatinine Ratio 19.1 (10-20) Glucose 109 H (70-99(Fasting)) mg/dl Osmolality (280-300) mOsm/kg Lactate (0.4-2.0) mmol/L Calcium 9.3 (8.5-10.1) mg/dl Magnesium 1.8 (1.7-2.4) mg/dl Total Bilirubin 0.7 (0.2-1.0) mg/dl Direct Bilirubin 0.1 (0-0.2) mg/dl AST 11 L (13-39) U/L ALT 8 (7-52) U/L Alkaline Phosphatase 71 (34-104) U/L Troponin I High Sens 13.4 (0-20) pg/ml Total Protein 6.8 (6.0-8.3) gm/dl Albumin 3.7 (3.4-5.0) gm/dl Procalcitonin (0-0.5) ng/ml TSH (0.300-4.500) uIu/ml Urine Color Urine Appearance (Clear) Urine pH (4.5-7.5) Ur Specific Mayo (1.000-1.030) Urine Protein (Negative) Urine Glucose (UA) (Negative) Urine Ketones (Negative) Urine Blood (Negative) Urine Nitrite (Negative) Urine Bilirubin (Negative) Urine Urobilinogen (Negative) Ur Leukocyte Esterase (Negative) Urine WBC (Auto) (0-5) /hpf Urine RBC (Auto) (0-4) /hpf U Hyaline Cast (Auto) (0-5) /lpf U Epithel Cells (Auto) (0-5) /lpf Urine Bacteria (Auto) (Negative) Ur Renal Epithelial Cell Urine Crystals Triple Phos Crystals (None Prsent) Urine Osmolality (500-800) mOsm/kg Ur Random Sodium mmol/L SARS-CoV-2 (PCR) (Negative) Influenza Type A (PCR) (Neg) Influenza Type B (PCR) (Neg) RSV (RT-PCR) (Neg) Blood Type Antibody Screen 05/16/22 05/16/22 05/16/22 Range/Units 10:48 10:48 10:48 WBC (4.8-10.8) K/ul RBC (4.63-6.08) M/uL Hgb (14.0-18.0) g/dl Hct (40.1-51.0) % MCV (80.0-100.0) fL MCH (25.0-34.0) pg MCHC (32.0-36.0) g/dL RDW Std Deviation (36.4-46.3) fL RDW Coeff of Hemanth (11.5-14.5) % Plt Count (130-400) K/uL MPV (9.4-12.4) fL Immature Gran % (Auto) % Neut % (Auto) % Lymph % (Auto) % Morris % (Auto) % Eos % (Auto) % Baso % (Auto) % Neut # (Auto) (1.4-6.5) K/uL Lymph # (Auto) (1.2-3.4) K/uL Morris # (Auto) (0.24-0.82) K/uL Eos # (Auto) (0-0.50) K/uL Baso # (Auto) (0-0.2) K/uL Immature Gran # (Auto) (0.00-0.02) K/uL PT (9.0-12.0) Seconds INR (0.9-1.1) APTT (21.0-31.0) Seconds PTT Ratio Sodium (136-145) mmol/L Potassium (3.5-5.1) mmol/L Chloride (98-107) mmol/L Carbon Dioxide (21-32) mmol/L Anion Gap (3-11) BUN (6-23) mg/dl Creatinine (0.6-1.4) mg/dl Est Cr Clr Drug Dosing Est GFR ( Amer) ml/min Est GFR (Non-Af Amer) ml/min BUN/Creatinine Ratio (10-20) Glucose (70-99(Fasting)) mg/dl Osmolality 284 (280-300) mOsm/kg Lactate (0.4-2.0) mmol/L Calcium (8.5-10.1) mg/dl Magnesium (1.7-2.4) mg/dl Total Bilirubin (0.2-1.0) mg/dl Direct Bilirubin (0-0.2) mg/dl AST (13-39) U/L ALT (7-52) U/L Alkaline Phosphatase (34-104) U/L Troponin I High Sens (0-20) pg/ml Total Protein (6.0-8.3) gm/dl Albumin (3.4-5.0) gm/dl Procalcitonin 0.27 (0-0.5) ng/ml TSH 2.061 (0.300-4.500) uIu/ml Urine Color Urine Appearance (Clear) Urine pH (4.5-7.5) Ur Specific Mayo (1.000-1.030) Urine Protein (Negative) Urine Glucose (UA) (Negative) Urine Ketones (Negative) Urine Blood (Negative) Urine Nitrite (Negative) Urine Bilirubin (Negative) Urine Urobilinogen (Negative) Ur Leukocyte Esterase (Negative) Urine WBC (Auto) (0-5) /hpf Urine RBC (Auto) (0-4) /hpf U Hyaline Cast (Auto) (0-5) /lpf U Epithel Cells (Auto) (0-5) /lpf Urine Bacteria (Auto) (Negative) Ur Renal Epithelial Cell Urine Crystals Triple Phos Crystals (None Prsent) Urine Osmolality (500-800) mOsm/kg Ur Random Sodium mmol/L SARS-CoV-2 (PCR) (Negative) Influenza Type A (PCR) (Neg) Influenza Type B (PCR) (Neg) RSV (RT-PCR) (Neg) Blood Type Antibody Screen 05/16/22 05/16/22 05/16/22 Range/Units 10:50 10:59 11:08 WBC (4.8-10.8) K/ul RBC (4.63-6.08) M/uL Hgb (14.0-18.0) g/dl Hct (40.1-51.0) % MCV (80.0-100.0) fL MCH (25.0-34.0) pg MCHC (32.0-36.0) g/dL RDW Std Deviation (36.4-46.3) fL RDW Coeff of Hemanth (11.5-14.5) % Plt Count (130-400) K/uL MPV (9.4-12.4) fL Immature Gran % (Auto) % Neut % (Auto) % Lymph % (Auto) % Morris % (Auto) % Eos % (Auto) % Baso % (Auto) % Neut # (Auto) (1.4-6.5) K/uL Lymph # (Auto) (1.2-3.4) K/uL Morris # (Auto) (0.24-0.82) K/uL Eos # (Auto) (0-0.50) K/uL Baso # (Auto) (0-0.2) K/uL Immature Gran # (Auto) (0.00-0.02) K/uL PT (9.0-12.0) Seconds INR (0.9-1.1) APTT (21.0-31.0) Seconds PTT Ratio Sodium (136-145) mmol/L Potassium (3.5-5.1) mmol/L Chloride (98-107) mmol/L Carbon Dioxide (21-32) mmol/L Anion Gap (3-11) BUN (6-23) mg/dl Creatinine (0.6-1.4) mg/dl Est Cr Clr Drug Dosing Est GFR ( Amer) ml/min Est GFR (Non-Af Amer) ml/min BUN/Creatinine Ratio (10-20) Glucose (70-99(Fasting)) mg/dl Osmolality (280-300) mOsm/kg Lactate 0.9 (0.4-2.0) mmol/L Calcium (8.5-10.1) mg/dl Magnesium (1.7-2.4) mg/dl Total Bilirubin (0.2-1.0) mg/dl Direct Bilirubin (0-0.2) mg/dl AST (13-39) U/L ALT (7-52) U/L Alkaline Phosphatase (34-104) U/L Troponin I High Sens (0-20) pg/ml Total Protein (6.0-8.3) gm/dl Albumin (3.4-5.0) gm/dl Procalcitonin (0-0.5) ng/ml TSH (0.300-4.500) uIu/ml Urine Color Urine Appearance (Clear) Urine pH (4.5-7.5) Ur Specific Mayo (1.000-1.030) Urine Protein (Negative) Urine Glucose (UA) (Negative) Urine Ketones (Negative) Urine Blood (Negative) Urine Nitrite (Negative) Urine Bilirubin (Negative) Urine Urobilinogen (Negative) Ur Leukocyte Esterase (Negative) Urine WBC (Auto) (0-5) /hpf Urine RBC (Auto) (0-4) /hpf U Hyaline Cast (Auto) (0-5) /lpf U Epithel Cells (Auto) (0-5) /lpf Urine Bacteria (Auto) (Negative) Ur Renal Epithelial Cell Urine Crystals Triple Phos Crystals (None Prsent) Urine Osmolality (500-800) mOsm/kg Ur Random Sodium mmol/L SARS-CoV-2 (PCR) NEGATIVE (Negative) Influenza Type A (PCR) Negative (Neg) Influenza Type B (PCR) Negative (Neg) RSV (RT-PCR) Negative (Neg) Blood Type O Negative Antibody Screen NEGATIVE 05/16/22 05/16/22 05/16/22 Range/Units Unknown Unknown Unknown WBC (4.8-10.8) K/ul RBC (4.63-6.08) M/uL Hgb (14.0-18.0) g/dl Hct (40.1-51.0) % MCV (80.0-100.0) fL MCH (25.0-34.0) pg MCHC (32.0-36.0) g/dL RDW Std Deviation (36.4-46.3) fL RDW Coeff of Hemanth (11.5-14.5) % Plt Count (130-400) K/uL MPV (9.4-12.4) fL Immature Gran % (Auto) % Neut % (Auto) % Lymph % (Auto) % Morris % (Auto) % Eos % (Auto) % Baso % (Auto) % Neut # (Auto) (1.4-6.5) K/uL Lymph # (Auto) (1.2-3.4) K/uL Morris # (Auto) (0.24-0.82) K/uL Eos # (Auto) (0-0.50) K/uL Baso # (Auto) (0-0.2) K/uL Immature Gran # (Auto) (0.00-0.02) K/uL PT (9.0-12.0) Seconds INR (0.9-1.1) APTT (21.0-31.0) Seconds PTT Ratio Sodium (136-145) mmol/L Potassium (3.5-5.1) mmol/L Chloride (98-107) mmol/L Carbon Dioxide (21-32) mmol/L Anion Gap (3-11) BUN (6-23) mg/dl Creatinine (0.6-1.4) mg/dl Est Cr Clr Drug Dosing Est GFR ( Amer) ml/min Est GFR (Non-Af Amer) ml/min BUN/Creatinine Ratio (10-20) Glucose (70-99(Fasting)) mg/dl Osmolality (280-300) mOsm/kg Lactate (0.4-2.0) mmol/L Calcium (8.5-10.1) mg/dl Magnesium (1.7-2.4) mg/dl Total Bilirubin (0.2-1.0) mg/dl Direct Bilirubin (0-0.2) mg/dl AST (13-39) U/L ALT (7-52) U/L Alkaline Phosphatase (34-104) U/L Troponin I High Sens (0-20) pg/ml Total Protein (6.0-8.3) gm/dl Albumin (3.4-5.0) gm/dl Procalcitonin (0-0.5) ng/ml TSH (0.300-4.500) uIu/ml Urine Color Yellow Urine Appearance Turbid A (Clear) Urine pH >= 9.0 H (4.5-7.5) Ur Specific Mayo 1.015 (1.000-1.030) Urine Protein 2+ H (Negative) Urine Glucose (UA) Negative (Negative) Urine Ketones Negative (Negative) Urine Blood 1+ H (Negative) Urine Nitrite Positive A (Negative) Urine Bilirubin Negative (Negative) Urine Urobilinogen Negative (Negative) Ur Leukocyte Esterase 1+ H (Negative) Urine WBC (Auto) 10-30 H (0-5) /hpf Urine RBC (Auto) 5-10 H (0-4) /hpf U Hyaline Cast (Auto) 0 (0-5) /lpf U Epithel Cells (Auto) >30 H (0-5) /lpf Urine Bacteria (Auto) 3+ H (Negative) Ur Renal Epithelial Cell Not Reportable Urine Crystals Not Reportable Triple Phos Crystals Present A (None Prsent) Urine Osmolality 443 L (500-800) mOsm/kg Ur Random Sodium 27 mmol/L SARS-CoV-2 (PCR) (Negative) Influenza Type A (PCR) (Neg) Influenza Type B (PCR) (Neg) RSV (RT-PCR) (Neg) Blood Type Antibody Screen Administered Medications Discontinued Medications Sodium Chloride (Nss 1000ml) 1,000 mls @ 999 mls/hr IV .[id number] ONE Stop: 05/16/22 11:46 Last Infusion: 05/16/22 13:36 Dose: 0 mls/hr Documented By: Admin: 05/16/22 10:58 Dose: 999 mls/hr Documented By: KV Ondansetron HCl (Ondansetron Inj 2 Mg/Ml 2 Ml Vial) 4 mg IV NOW STA Stop: 05/16/22 10:47 Last Admin: 05/16/22 10:58 Dose: 4 mg Documented By: KV Imaging Data Radiologist's Impression: Chest X-Ray 05/16/22 10:46 XR chest 1V portable CLINICAL HISTORY: Sepsis TECHNIQUE: Single frontal radiograph of the chest was obtained. Comparison: Comparison is made to chest radiograph 04/14/2017 FINDINGS: No lines and tubes are seen. Calcified aortic knob is seen. Minimal atelectasis is in the lung bases. No evidence of pleural effusion or pneumothorax. IMPRESSION: No acute abnormalities and in particular no evidence of pneumonia. ACT 112: Negative or not required by law. Electronically signed by: Vipin Amos M.D. 05/16/2022 11:59 AM KUB X-Ray 05/16/22 10:46 KUB HISTORY: GI bleeding COMPARISON: Abdominal CT 12/08/2014. FINDINGS: Borderline dilated gas-filled loops of large and small bowel are seen throughout the abdomen. This could represent a mild ileus. No evidence for a bowel obstruction. Surgical clips seen within the deep pelvis. No renal calculi. No ureteral calculi. No pneumoperitoneum or pneumatosis. IMPRESSION: Suspect a mild ileus. No evidence for bowel obstruction. ACT 112: Negative or not required by law. Electronically signed by: Geoff Gacsa M.D. 05/16/2022 12:30 PM Discharge Plan Visit Data Chief Complaint: Dehydration Stated Complaint: DEHYDRATED ED Provider: Rainer Santana Discharge Problem: Diarrhea, JAROCHO (acute kidney injury), Acute lower GI bleeding Patient Disposition: Being Evaluated by Hospitalist Forms Stand Alone Forms: [facility] Prescriptions Prescriptions: No Action clindamycin HCl 300 mg capsule 300 mg PO TID Qty: 90 0RF sennosides [Natural Veg Laxative(sennosid)] 8.6 mg Tablet 8.6 mg PO BID PRN (Reason: Constipation) atorvastatin 20 mg Tablet 20 mg PO PM clonazepam 1 mg Tablet 1 mg PO HS PRN (Reason: RESTLESSNESS) clonazepam 1 mg Tablet 0.5 mg PO DAILY PRN (Reason: Anxiety) acetaminophen [Tylenol Extra Strength] 500 mg Tablet 500 - 1,000 mg PO DIRECTED PRN (Reason: Pain) ferrous sulfate 325 mg (65 mg iron) Tablet 325 mg PO DAILY omeprazole 20 mg Capsule,Delayed Release(Dr/Ec) 20 mg PO DAILYBB lorazepam 1 mg Tablet 1 mg PO DIRECTED PRN (Reason: BEFORE TRAVELING) Rx Instructions: TAKE ONE TABLET BY MOUTH BEFORE TRAVELING-MAY REPEAT AFTER 30 MINUTES. diphenhydramine-acetaminophen [Tylenol PM Extra Strength] 25-500 mg Tablet 1 tab PO DIRECTED PRN (Reason: Pain) atenolol 50 mg Tablet 100 mg PO DAILY cholecalciferol (vitamin D3) [D-Vi-Tish] 10 mcg/mL (400 unit/mL) Drops 400 unit PO DAILY Men's One Daily 400-20-300 mcg Tablet 1 tab PO DAILY folic acid 1 mg tablet 1 mg PO DAILY Qty: 30 0RF oxycodone 5 mg tablet 5 mg PO Q6H PRN (Reason: pain) Qty: 12 0RF Rx Instructions: Initial Treatment Referrals Referrals: Demarco Guallpa MD [Primary Care Provider] -
[2022-05-16 11:09] LABS: Basophils # (auto) 0.09 K/uL (0-0.2); Basophils % (auto) 0.4 %; Eosinophils # (auto) 0.05 K/uL (0-0.50); Eosinophils % (auto) 0.2 %; Hematocrit (blood only) 41.7 % (40.1-51.0); Hemoglobin 14.7 g/dl (14.0-18.0); Immature Granulocytes % (auto) 1.4 %; Lymphocytes # (auto) 1.97 K/uL (1.2-3.4); Lymphocytes % (auto) 9.5 %; Mean Corpuscular Hemoglobin 33.3 pg (25.0-34.0); Mean Corpuscular Hgb Conc 35.3 g/dL (32.0-36.0); Mean Corpuscular Volume 94.6 fL (80.0-100.0); Mean Platelet Volume 9.9 fL (9.4-12.4); Monocytes # (auto) 1.48 K/uL (0.24-0.82); Monocytes % (auto) 7.1 %; Neutrophils # (auto) 16.84 K/uL (1.4-6.5); Neutrophils % (auto) 81.4 %; Platelet Count 478 K/uL (130-400); RDW Coefficient of Variation 12.6 % (11.5-14.5); RDW Standard Deviation 43.9 fL (36.4-46.3); Red Blood Count 4.41 M/uL (4.63-6.08); White Blood Count 20.73 K/ul (4.8-10.8)
[2022-05-16 11:24] LABS: INR 1.1 (0.9-1.1); Partial Thromboplastin Time 27.9 Seconds (21.0-31.0); Prothrombin Time 11.8 Seconds (9.0-12.0)
[2022-05-16 11:35] LABS: Alanine Aminotransferase 8 U/L (7-52); Albumin Level 3.7 gm/dl (3.4-5.0); Alkaline Phosphatase 71 U/L (34-104); Anion Gap 10 (3-11); Aspartate Aminotransferase 11 U/L (13-39); BUN Creatinine Ratio 19.1 (10-20); Bilirubin Direct 0.1 mg/dl (0-0.2); Bilirubin,Total 0.7 mg/dl (0.2-1.0); Blood Urea Nitrogen 48 mg/dl (6-23); Calcium 9.3 mg/dl (8.5-10.1); Carbon Dioxide 16 mmol/L (21-32); Chloride 104 mmol/L (98-107); Est GFR (Non-African American) 23.3 ml/min; Glucose 109 mg/dl (70-99(Fasting)); Magnesium 1.8 mg/dl (1.7-2.4); Potassium 4.2 mmol/L (3.5-5.1); Sodium 130 mmol/L (136-145); Total Protein 6.8 gm/dl (6.0-8.3); Troponin I High Sensitivity 13.4 pg/ml (0-20)
[2022-05-16 11:51] LABS: Influenza A virus by PCR Negative (Neg); Influenza B virus by PCR Negative (Neg); RSV by PCR Negative (Neg); SARS CoV2 RNA(COVID-19) Ceph NEGATIVE (Negative)
--- NOTE | 2022-05-16 12:00 | XRay Report ---
XR chest 1V portable CLINICAL HISTORY: Sepsis TECHNIQUE: Single frontal radiograph of the chest was obtained. Comparison: Comparison is made to chest radiograph 04/14/2017 FINDINGS: No lines and tubes are seen. Calcified aortic knob is seen. Minimal atelectasis is in the lung bases. No evidence of pleural effusion or pneumothorax. IMPRESSION: No acute abnormalities and in particular no evidence of pneumonia. ACT 112: Negative or not required by law. Electronically signed by: Vipin Amos M.D. 05/16/2022 11:59 AM
--- NOTE | 2022-05-16 12:31 | XRay Report ---
KUB HISTORY: GI bleeding COMPARISON: Abdominal CT 12/08/2014. FINDINGS: Borderline dilated gas-filled loops of large and small bowel are seen throughout the abdome n. This could represent a mild ileus. No evidence for a bowel obstruction. Surgical clips seen within the deep pelvis. No renal calculi. No ureteral calculi. No pneumoperitoneum or pneumatosis. IMPRESSION: Suspect a mild ileus. No evidence for bowel obstruction. ACT 112: Negative or not required by law. Electronically signed by: Geoff Gasca M.D. 05/16/2022 12:30 PM
--- NOTE | 2022-05-16 13:52 | History & Physical Report ---
Date of Service May 16, 2022 Assessment & Plan (1) Diarrhea: Plan: Patient is 81 y/o M with PMH HTN, HLD, anxiety, bladder cancer s/p cystectomy and ileal conduit, tobacco use presented to ER with complaint of diarrhea x 10- 14 days. In ER afebrile, initial BP 87/62 up to 141/76 after 1L NSS WBC: 20, lactate: 0.9 KUB: Suspect a mild ileus. No evidence for bowel obstruction. CT Abd/pelvis: Wall thickening of the second and third portions of the duodenum with mild adjacent stranding. This favors duodenitis. Pancreatitis could appear similar although is considered less likely. No extraluminal gas. Mildly distended fluid-filled colon. This may reflect a diarrheal state. No bowel obstruction. Stool culture, C. difficile pending Blood cultures pending Obtain Hemoccult stool Clear liquid diet Zosyn Gentle IVF CBC, BMP in a.m. (2) JAROCHO (acute kidney injury): Plan: JAROCHO on CKD III BUN: 48, Cr: 2.5. Baseline Cr 1.2 Monitor renal functions, avoid nephrotoxic agents when possible Nephrology consult (3) Hyponatremia: Plan: Initial sodium: 130. Repeat 132. Baseline 134 according to outpatient records on 12/2020 Urine sodium, urine osmolality, serum osmolality, TSH pending (4) Hypertension: Plan: Initially hypotensive in ER, improved after IVF Continue on atenolol with holding parameters Hold amlodipine (5) Dyslipidemia: Plan: Continue atorvastatin (6) History of carcinoma of bladder: Plan: History bladder cancer s/p cystectomy and ileal conduit DVT Prophylaxis Heparin SQ DNR/DNI as per discussion with pt Follows with Dr Guallpa for routine care Pt was seen and care coordinated with Dr Romo. See addendum I spent total of 75 minutes of reviewing notes, outpatient records, labs, medications, coordinating, documenting, and providing care for this patient excluding time spent in the performance of separately billed services. History of Present Illness Chief Complaint: Diarrhea Primary Care Provider: Demarco Guallpa MD Patient is 81 y/o M with PMH HTN, HLD, anxiety, bladder cancer s/p cystectomy and ileal conduit, tobacco use presented to ER with complaint of diarrhea x 10- 14 days. States 4-5 episodes watery stools daily. Stool looks dark. Has visual impairment so unable to describe further. Has been using OTC anti-diarrhea medication (Imodium) for past 7 days without relief. Denies abdominal pain. Approximately 7 days ago had nausea and upset stomach "felt like rock in abdomen" after eating sandwich, soup and cookies. Vomited twice that night. No other vomiting since. He states he hasn't been eating much as causes more diarrhea. He has been drinking Gatorade and water. He states drinking more water than he usually does but is unable to quantify amount. Last ate 2 days ago, had soup and sandwich. Feels wiped out. Has been having normal urine output in bag and denies noted hematuria. Denies ill contacts. Denies recent antibiotic use. Denies known fever/chills, diaphoresis, MILLER, dizziness, syncope, vision changes, neck pain, CP, SOB, orthopnea, palpitations, cough, sore throat, choking, otalgia, rhinorrhea, paresthesias, extremity edema, rashes. Allergies Allergy/AdvReac Type Severity Reaction Status Date / Time meclizine Allergy Intermediate Swelling Verified 05/16/22 15:40 of tongue. aspirin AdvReac Unknown History of Verified 05/16/22 15:40 ulcers Home Medications Medication Instructions Recorded Confirmed Type acetaminophen 500 mg tablet 500 - 1,000 mg PO DIRECTED PRN 11/28/18 05/16/22 History (Tylenol Extra Strength) Pain atenolol 50 mg tablet 50 mg PO BID 11/28/18 05/16/22 History atorvastatin 20 mg tablet 20 mg PO PM 11/28/18 05/16/22 History cholecalciferol (vitamin D3) 10 400 unit PO DAILY 11/28/18 05/16/22 History mcg/mL (400 unit/mL) oral drops (D-Vi-Tish) clonazepam 1 mg tablet 0.5 mg PO BID PRN Anxiety 11/28/18 05/16/22 History clonazepam 1 mg tablet 1 mg PO HS PRN RESTLESSNESS 11/28/18 05/16/22 History ferrous sulfate 325 mg (65 mg 325 mg PO DAILY 11/28/18 05/16/22 History iron) tablet lorazepam 1 mg tablet 1 mg PO DIRECTED PRN BEFORE 11/28/18 05/16/22 History TRAVELING lvkdflou-ihlzezte-lnqlr acid 400 1 tab PO DAILY 11/28/18 05/16/22 History mcg-vit K 20 mcg-lycop 300 mcg tablet (Men's One Daily) omeprazole 20 mg capsule,delayed 20 mg PO DAILYBB 11/28/18 05/16/22 History release sennosides 8.6 mg tablet (Natural 8.6 mg PO BID 11/28/18 05/16/22 History Vegetable Laxative (sennosides)) oxycodone 5 mg tablet 5 mg PO Q6H PRN pain #12 tabs 05/02/22 05/16/22 Rx amlodipine 5 mg tablet 5 mg PO DAILY 05/16/22 05/16/22 History gabapentin 300 mg capsule 300 mg PO TID 05/16/22 05/16/22 History trazodone 50 mg tablet 50 mg PO HS 05/16/22 05/16/22 History Past Med/Surg History Medical History Anxiety CKD (chronic kidney disease), stage III Dyslipidemia History of carcinoma of bladder History of colon polyps Hypertension Macular degeneration Tinnitus Tobacco use Surgical History (Updated 05/16/22 @ 20:50 by Cara Dominguez PA-C) H/O total cystectomy with ileal conduit Status post lumbar surgery Family History (Updated 05/16/22 @ 20:50 by Cara Dominguez PA-C) Other Cancer Coronary heart disease Social History (Updated 05/16/22 @ 20:47 by Cara Dominguez PA-C) Smoking Status: Current some day smoker Cigarettes Per Day: 1-2 per day up to 12 per day, intermittently; Hx Alcohol Use: Yes Alcohol type: beer Alcohol Intake Frequency: 2-3 x/Week Hx Substance Use: No Preferred Language: Mozambican Communication Ability: Effective Quotation Checker Required: No Beliefs That Will Affect Care: None marital status: / Current Living Situation: Alone Other Information That Helps Us Care for You: No Feels Safe at Home: Yes Safety Concerns: Feels Safe At This Time Assistive Devices: Cane and Walker Review of Systems Review of Systems: All systems reviewed & are unremarkable except as noted in HPI & below Physical Exam Physical Exam: General: no distress, WDWN Head: normocephalic, atraumatic Eyes: conjunctiva non-injected, anicteric ENT: hard of hearing, normal inspection external ears, nose, mucous membranes dry Neck: supple, trachea midline, non-tender Lungs: clear, no respiratory distress, no wheezing/rhonchi/rales CV: RRR, no murmur, no pretibial edema Abd: Right abdomen with stoma with clear yellow urine in bag, +hyperactive BS, soft, non-tender Ext: no cyanosis, no calf tenderness Neuro: A&O x 3, no focal deficits noted, normal affect Skin: warm, dry Results & Data Results & Data ([facility]) Vital Signs (Past 12 Hours) Vital Signs Temp Pulse Pulse Resp BP BP Pulse Ox 05/16/22 12:48 72 18 141/76 H 93 05/16/22 11:25 65 18 122/70 96 05/16/22 11:01 65 18 05/16/22 10:59 62 12 122/76 97 05/16/22 10:45 66 17 116/67 97 05/16/22 10:20 36.8 C 72 14 87/62 L 97 O2 Del Method 05/16/22 12:48 Room Air 05/16/22 11:25 Room Air 05/16/22 11:01 05/16/22 10:59 Room Air 05/16/22 10:45 Room Air 05/16/22 10:20 Laboratory Results Short CBC 05/16/22 Range/Units 10:48 WBC 20.73 H (4.8-10.8) K/ul Hgb 14.7 (14.0-18.0) g/dl Hct 41.7 (40.1-51.0) % Plt Count 478 H (130-400) K/uL BMP 05/16/22 05/16/22 10:48 15:21 Sodium 130 L 132 L Potassium 4.2 4.1 Chloride 104 106 Carbon Dioxide 16 L 18 L BUN 48 H 49 H Creatinine 2.51 H 2.27 H Glucose 109 H 99 Calcium 9.3 8.9 Liver Function 05/16/22 Range/Units 10:48 Total Bilirubin 0.7 (0.2-1.0) mg/dl Direct Bilirubin 0.1 (0-0.2) mg/dl AST 11 L (13-39) U/L ALT 8 (7-52) U/L Alkaline Phosphatase 71 (34-104) U/L Albumin 3.7 (3.4-5.0) gm/dl Urine 05/16/22 Range/Units Unknown Urine Color Yellow Urine Appearance Turbid A (Clear) Urine pH >= 9.0 H (4.5-7.5) Ur Specific [place] 1.015 (1.000-1.030) Urine Protein 2+ H (Negative) Urine Glucose (UA) Negative (Negative) Diagnostic Findings Chest X-Ray 05/16/22 10:46 XR chest 1V portable CLINICAL HISTORY: Sepsis TECHNIQUE: Single frontal radiograph of the chest was obtained. Comparison: Comparison is made to chest radiograph 04/14/2017 FINDINGS: No lines and tubes are seen. Calcified aortic knob is seen. Minimal atelectasis is in the lung bases. No evidence of pleural effusion or pneumothorax. IMPRESSION: No acute abnormalities and in particular no evidence of pneumonia. ACT 112: Negative or not required by law. Electronically signed by: Vipin Amos M.D. 05/16/2022 11:59 AM KUB X-Ray 05/16/22 10:46 KUB HISTORY: GI bleeding COMPARISON: Abdominal CT 12/08/2014. FINDINGS: Borderline dilated gas-filled loops of large and small bowel are seen throughout the abdomen. This could represent a mild ileus. No evidence for a bowel obstruction. Surgical clips seen within the deep pelvis. No renal calculi. No ureteral calculi. No pneumoperitoneum or pneumatosis. IMPRESSION: Suspect a mild ileus. No evidence for bowel obstruction. ACT 112: Negative or not required by law. Electronically signed by: Geoff Gasca M.D. 05/16/2022 12:30 PM Abdomen/Pelvis CT 05/16/22 15:38 CT OF THE ABDOMEN AND PELVIS WITHOUT CONTRAST CLINICAL HISTORY: Diarrhea. Evaluate for obstruction. COMPARISON STUDY: CT of the abdomen December 08, 2014 and KUB performed earlier today. TECHNIQUE: Axial images of the abdomen and pelvis were obtained without IV contrast. Images were reviewed in the axial, sagittal, and coronal planes. Automated exposure control was utilized for the study. A dose lowering technique was utilized adhering to the principles of ALARA. FINDINGS: Emphysema is noted within the lower lungs. No pneumatosis, free air or portal venous gas is present. Unenhanced images of the liver, spleen, adrenal glands, kidneys and pancreas are unremarkable. Is no biliary or pancreatic ductal dilatation. There is wall thickening of the second and third portions of the duodenum with mild adjacent stranding. There is no extraluminal gas. No evidence for a bowel obstruction. The colon is mildly distended and fluid- filled. There is no transition point. A right lower quadrant ileostomy is present. There is sigmoid diverticulosis without evidence for acute diverticulitis. There is no lymphadenopathy. Abdominal aorta is ectatic. There is no fluid collection is suggest an abscess. No acute fracture or suspicious lesion within the visualized skeletal structures are present. There are postoperative findings within the lumbar spine. IMPRESSION: 1. Wall thickening of the second and third portions of the duodenum with mild adjacent stranding. This favors duodenitis. Pancreatitis could appear similar although is considered less likely. No extraluminal gas. 2. Mildly distended fluid-filled colon. This may reflect a diarrheal state. No bowel obstruction. ACT 112: Negative or not required by law. Electronically signed by: Victorino Clark M.D. 05/16/2022 4:57 PM Code Status & VTE Plan VTE Prophylaxis Plan VTE Prophylaxis will be ordered: Yes Supervising Physician Co-Signing Physician Notes Mr. Melendez is an 81-year-old man who with a history of bladder cancer reporting diarrhea for 10 to 14 days. He reports not eating anything for the past 2 days out of concern that he would develop abdominal pain. He reports eating cookies and cake and then feeling like he had a rock in his abdomen. He vomited that night but has not had diarrhea or vomiting since that time. He came today after daughter encouraged him to come and be checked out. He was able to eat dinner this evening without any issue and denies any diarrhea in the hospital since admission. He reports passing flatus but no pain diarrhea, fevers or other issues. He appears to be getting improved On physical exam he is in no acute distress he was sleeping when I arrived and was able to wake up and orient without an issue. He is a good historian. Abdomen is soft nontender nondistended with an ileal conduit bag draining clear yellow urine. Cardiac exam reveals S1/S2 heard with no murmurs gallops or rubs. Pulmonary exam reveals clear lungs auscultation bilaterally. Skin is warm and dry. He has no gross focal neurologic deficits. Work-up today includes a CBC with an elevated white blood cell count of 20, elevated platelet count 204 78, normal H&H, left shift on the differential, hyponatremia with a sodium of 130, evidence of metabolic acidosis with a bicarb of 16, BUN of 48 with a creatinine that is elevated from his baseline at 2.51 (baseline 1.2-1.3). Lactate is 0.9 highly sensitive troponin is negative. Urin alysis appears positive for an infection. Imaging includes a CT abdomen pelvis without contrast showing possible duodenitis versus pancreatitis along with a distended fluid-filled colon reflective of a diarrheal state with no bowel obstruction. Overall this 81-year-old man appears to have an improving diarrheal illness of uncertain origin. Stool studies are still pending. He reports chronic an tibiotic use although this is not verified in his outpatient record . He reports eating lots of junk food which may be contributing to his current situation. Agree with continuing supportive care efforts and obtaining a stool study when available. With his elevated white blood cell count, reactive thrombocytosis and length of time of symptoms in the setting of possible urinary tract infection, Zosyn was started and will be continued pending culture results and clinical improvement. DO Demetrius (1) Diarrhea Diarrhea type: unspecified type Qualified Code(s): R19.7 - Diarrhea, unspecified
[2022-05-16 13:55] LABS: Appearance Urine Turbid (Clear); Bilirubin Urine Negative (Negative); Blood Urine 1+ (Negative); Color Urine Yellow; Epithelial Cell Urine Auto >30 /lpf (0-5); Glucose Urine UA Negative (Negative); Ketones Urine Negative (Negative); Leukocyte Esterase Urine 1+ (Negative); Nitrite Urine Positive (Negative); Specific Gravity Urine 1.015 (1.000-1.030); Urobilinogen Urine Negative (Negative); pH Urine >= 9.0 (4.5-7.5)
[2022-05-16 14:02] LABS: Protein Urine 2+ (Negative)
[2022-05-16 14:20] LABS: Bacteria Urine Automated 3+ (Negative); Cast Urine Automated 0 /lpf (0-5); Triple Phosphate Crystal Urine Present (None Prsent)
[2022-05-16] MEDS ORDERED: PIPERACILLIN/TAZOBACTAM 3.375 GM in DEXTROSE 5% 100 ML/100 ML BAG IV STA (15:35)
--- NOTE | 2022-05-16 15:43 | Electrocardiogram Report ---
Test Reason : Blood Pressure : / mmHG Vent. Rate : 063 BPM Atrial Rate : 063 BPM P-R Int : 242 ms QRS Dur : 084 ms QT Int : 408 ms P-R-T Axes : 073 062 063 degrees QTc Int : 417 ms Sinus rhythm with 1st degree A-V block Anteroseptal infarct (cited on or before 16-MAY-2022) Abnormal ECG When compared with ECG of 30-NOV-2018 12:08, Questionable change in initial forces of Anterior leads T wave amplitude has decreased in Anterior leads Confirmed by Taran Rm ([id number]) on 05/16/2022 3:43:21 PM Referred By: Confirmed By:Taran Rm
[2022-05-16 16:19] LABS: Anion Gap 8 (3-11); BUN Creatinine Ratio 21.6 (10-20); Blood Urea Nitrogen 49 mg/dl (6-23); Calcium 8.9 mg/dl (8.5-10.1); Carbon Dioxide 18 mmol/L (21-32); Chloride 106 mmol/L (98-107); Est GFR (African American) 30.4 ml/min; Est GFR (Non-African American) 26.3 ml/min; Glucose 99 mg/dl (70-99(Fasting)); Potassium 4.1 mmol/L (3.5-5.1); Sodium 132 mmol/L (136-145)
[2022-05-16] MEDS ORDERED: clonazePAM 0.5 MG TAB PO PRN (16:20)
[2022-05-16] MEDS ORDERED: ONDANSETRON INJ 2 MG/ML 2 ML VIAL IV PRN (16:20)
[2022-05-16] MEDS ORDERED: Patient's HEIGHT &/or WEIGHT Needed SCH (16:30)
--- NOTE | 2022-05-16 16:59 | CT Scan Report ---
CT OF THE ABDOMEN AND PELVIS WITHOUT CONTRAST CLINICAL HISTORY: Diarrhea. Evaluate for obstruction. COMPARISON STUDY: CT of the abdomen December 08, 2014 and KUB performed earlier today. TECHNIQUE: Axial images of the abdomen and pelvis were obtained without IV contrast. Images were revi ewed in the axial, sagittal, and coronal planes. Automated exposure control was utilized for the shannan dy. A dose lowering technique was utilized adhering to the principles of ALARA. FINDINGS: Emphysema is noted within the lower lungs. No pneumatosis, free air or portal venous gas is present. Unenhanced images of the liver, spleen, adrenal glands, kidneys and pancreas are unremarkab le. Is no biliary or pancreatic ductal dilatation. There is wall thickening of the second and third p ortions of the duodenum with mild adjacent stranding. There is no extraluminal gas. No evidence for a bowel obstruction. The colon is mildly distended and fluid-filled. There is no transition point. A r ight lower quadrant ileostomy is present. There is sigmoid diverticulosis without evidence for acute diverticulitis. There is no lymphadenopathy. Abdominal aorta is ectatic. There is no fluid collection is suggest an abscess. No acute fracture or suspicious lesion within the visualized skeletal structu res are present. There are postoperative findings within the lumbar spine. IMPRESSION: 1. Wall thickening of the second and third portions of the duodenum with mild adjacent stranding. Thi s favors duodenitis. Pancreatitis could appear similar although is considered less likely. No extralu mattie gas. 2. Mildly distended fluid-filled colon. This may reflect a diarrheal state. No bowel obstruction. ACT 112: Negative or not required by law. Electronically signed by: Victorino Clark M.D. 05/16/2022 4:57 PM
[2022-05-16] MEDS ORDERED: SODIUM CHLORIDE 0.9% 1000ML 1,000 ML IV SCH (18:15)
[2022-05-16] MEDS: PIPERACILLIN/TAZOBACTAM 3.375 GM in DEXTROSE 5% 100 ML IV SCH (20:57)
[2022-05-16] MEDS: HEPARIN SOD 5,000 UNIT/0.5 ML VIAL SQ SCH (21:02)
[2022-05-16] MEDS: ATORVASTATIN 20 MG TAB PO SCH (21:02)
[2022-05-16] MEDS: traZODone HCL 50 MG TAB PO SCH (21:02)
[2022-05-16] MEDS: ATENOLOL 50 MG TABLET PO SCH (21:02)
[2022-05-16] MEDS: GABAPENTIN 300 MG CAP PO SCH (21:02)
[2022-05-17] MEDS: PIPERACILLIN/TAZOBACTAM 3.375 GM in DEXTROSE 5% 100 ML IV SCH ×3 (04:50→21:36)
[2022-05-17 06:12] LABS: Basophils # (auto) 0.08 K/uL (0-0.2); Basophils % (auto) 0.5 %; Eosinophils % (auto) 0.7 %; Hematocrit (blood only) 35.9 % (40.1-51.0); Hemoglobin 12.5 g/dl (14.0-18.0); Immature Granulocytes # (auto) 0.16 K/uL (0.00-0.02); Immature Granulocytes % (auto) 1.1 %; Lymphocytes # (auto) 2.52 K/uL (1.2-3.4); Mean Corpuscular Hemoglobin 33.1 pg (25.0-34.0); Mean Corpuscular Hgb Conc 34.8 g/dL (32.0-36.0); Mean Platelet Volume 9.8 fL (9.4-12.4); Monocytes # (auto) 1.23 K/uL (0.24-0.82); Monocytes % (auto) 8.3 %; Neutrophils % (auto) 72.4 %; Platelet Count 437 K/uL (130-400); RDW Coefficient of Variation 12.6 % (11.5-14.5); RDW Standard Deviation 44.3 fL (36.4-46.3); Red Blood Count 3.78 M/uL (4.63-6.08); White Blood Count 14.79 K/ul (4.8-10.8)
[2022-05-17] MEDS: PANTOprazole 40 MG TAB PO SCH (06:19)
[2022-05-17 06:27] LABS: Calcium 8.6 mg/dl (8.5-10.1); Creatinine Clr Calc Pharmacy 27.6 ml/min; Est GFR (African American) 30.4 ml/min; Est GFR (Non-African American) 26.3 ml/min; Potassium 3.9 mmol/L (3.5-5.1)
[2022-05-17 06:55] LABS: Adenovirus F 40/41 PCR Not Detected (NotDetected); Astrovirus PCR Not Detected (NotDetected); Campylobacter PCR Not Detected (NotDetected); Cryptosporidium PCR Not Detected (NotDetected); Cyclospora cayetanensis PCR Not Detected (NotDetected); Entamoeba histolytica PCR Not Detected (NotDetected); Enteroaggregative E.coli(EAEC) Not Detected (NotDetected); Enteropathogenic E.coli (EPEC) Not Detected (NotDetected); Enterotoxigenic E.coli (ETEC) Not Detected (NotDetected); Giardia lamblia PCR Not Detected (NotDetected); Norovirus GI/GII PCR Not Detected (NotDetected); Plesiomonas shigelloides PCR Not Detected (NotDetected); Rotavirus A PCR Not Detected (NotDetected); Salmonella PCR Not Detected (NotDetected); Sapovirus PCR Not Detected (NotDetected); Shiga-like Toxin E.coli (STEC) Not Detected (NotDetected); Shigella/Enteroinvasive E.coli Not Detected (NotDetected); Vibrio cholerae PCR Not Detected (NotDetected); Vibrio species PCR Not Detected (NotDetected); Yersinia enterocolitica PCR Not Detected (NotDetected)
[2022-05-17] MEDS: FERROUS SULFATE 325 MG TAB PO SCH (08:17)
[2022-05-17] MEDS: ATENOLOL 50 MG TABLET PO SCH ×2 (08:17→21:44)
[2022-05-17] MEDS: HEPARIN SOD 5,000 UNIT/0.5 ML VIAL SQ SCH ×2 (08:17→22:40)
[2022-05-17] MEDS: GABAPENTIN 300 MG CAP PO SCH ×2 (08:17→21:44)
[2022-05-17] MEDS ORDERED: SODIUM CHLORIDE 0.9% 1000ML 1,000 ML IV SCH (10:30)
--- NOTE | 2022-05-17 11:07 | Consultation Report ---
NEPHROLOGY CONSULTATION NOTE DATE OF SERVICE: 05/17/2022. REASON FOR CONSULTATION: Acute renal failure. HISTORY OF PRESENT ILLNESS: The patient is an 81-year-old male who presented to the hospital yesterday with the complaint of diarrhea for the last 10-14 days. He was having 4-5 episodes of watery stool every day. Denied having any blood in the stool. He also had some nausea and few episodes of vomiting before he presented to the hospital. In the Emergency Department, his blood pressure was initially low in the 80 systolic range, but after some IV fluid, it did get better and is currently normal. His creatinine at the time of admission was elevated at 2.51, and overnight after fluid, it has come down a little bit to 2.27, this morning. Patient has a history of bladder cancer and is status post cystectomy and has an ileal conduit for the last 16 years. His baseline creatinine is around 1.2. He was also noted to have hyponatremia with a serum sodium of 130 and at baseline, he runs in the low 130s. Sodium this morning is better at 133. CT scan of the abdomen and pelvis was done at the time of admission, which did not show any hydronephrosis. At this time, the patient is starting to feel better and he reports less diarrhea now than before. He is still getting some IV fluid. ALLERGIES: Reviewed. MEDICATIONS: Home medication list was reviewed and is as per the H and P and the reconciliation list. Inpatient medication list was also reviewed in detail. PAST MEDICAL AND SURGICAL HISTORY: Includes history of bladder cancer, status post cystectomy with ileal conduit more than 16 years ago, mild CKD stage IIIA with baseline creatinine around 1.2, history of colon polyps, hypertension, macular degeneration, history of tobacco abuse, anxiety, status post lumbar surgery. FAMILY HISTORY: Negative for renal disease or dialysis. SOCIAL HISTORY: Current day smoker, about 1-2 cigarettes per day. Drinks beer about 2-3 times per week. Uses cane and walker. He lives alone and he is a . REVIEW OF SYSTEMS: As detailed in HPI; unless stated otherwise, 12 system was reviewed and negative. He had nausea, vomiting and predominantly diarrhea for the last few days prior to hospitalization. Denied any lightheadedness, orthopnea, shortness of breath, increasing lower extremity edema or really any other symptoms. A 12-system was reviewed in detail. PHYSICAL EXAMINATION: GENERAL: Elderly white male who is not in any respiratory distress. He is awake, alert, oriented x3 and was able to give me full account of his medical problem list as well as event prior to hospitalization. HEENT: Normocephalic, atraumatic. Mucous membrane is moist. NECK: Supple. No jugular venous distention. CHEST: Bilaterally clear to auscultation. Occasional expiratory wheezing. CARDIOVASCULAR: Regular rate and rhythm. No murmur. ABDOMEN: Slightly tender. He does have an ileal conduit bag in the right lower quadrant. EXTREMITIES: Show no edema. NEUROLOGIC: Normal speech. Awake, alert, oriented x3. No focal deficit. VITAL SIGNS: Blood pressure 119/60, pulse rate 64, temperature 36.8, 96% on room air. SKIN: Shows no rash. LABORATORY TEST: At baseline, his creatinine is 1.2; on admission, it was 2.51, this morning is slightly better at 2.27. Sodium is now 133, potassium 3.9, chloride 108, bicarbonate 18, calcium 8.6. Urine test looks like it is probably infected, but that is an ileal conduit urine. CT abdomen and pelvis reviewed. Chest x-ray did not show any overt CHF or pneumonia. ASSESSMENT AND PLAN: An 81-year-old male with history of bladder cancer, status post cystectomy with ileal conduit more than 16 years ago with a baseline CKD IIIA, baseline creatinine 1.2 now, presented to the hospital with 10-12 days history of diarrhea, nausea and vomiting. He was found to have acute renal failure for which I have been consulted. 1. Acute renal failure: This appears to be prerenal in etiology secondary to nausea, vomiting and mainly diarrhea for the last 10-12 days. His blood pressure was also low at the time of admission. Given all this, this is prerenal acute renal failure. Fortunately, creatinine is coming down with the use of IV fluid. Ideally, we have to give IV fluid for 1 more day. We can continue to use normal saline for the time being. I agree with holding amlodipine for now to allow higher blood pressure. Should continue to take atenolol. I expect the renal function to be back to baseline by tomorrow. 2. Possible UTI. This urine sample was from the ileal conduit, so there is always significant bacterial contamination and it is nearly impossible to interpret the result of the urine test in this type of sample. In any case, he is getting broad-spectrum antibiotics, which I believe can be continued, but I am not convinced he has UTI. Thank you very much for the consult. Job ID: [id number] LUCIAN
--- NOTE | 2022-05-17 21:19 | Hospitalist Progress Note ---
Date of Service May 17, 2022 Assessment & Plan (1) Diarrhea: Plan: (1) Diarrhea: Plan: Patient is 81 y/o M with PMH HTN, HLD, anxiety, bladder cancer s/p cystectomy and ileal conduit, tobacco use presented to ER with complaint of diarrhea x 10- 14 days. KUB: Suspect a mild ileus. No evidence for bowel obstruction. CT Abd/pelvis: Wall thickening of the second and third portions of the duodenum with mild adjacent stranding. This favors duodenitis. Pancreatitis could appear similar although is considered less likely. No extraluminal gas. Mildly distended fluid-filled colon. This may reflect a diarrheal state. No bowel obstruction. Stool culture, C. difficile pending Blood cultures pending Improving advancing diet (4) Hypertension: Plan: Initially hypotensive in ER, improved after IVF Continue on atenolol with holding parameters Holding amlodipine will monitor (6) History of carcinoma of bladder: Plan: History bladder cancer s/p cystectomy and ileal conduit (2) Hyponatremia: Plan: Initial sodium: 130. Ns=a 133 today nephrology following (3) JAROCHO (acute kidney injury): Plan: JAROCHO on CKD III BUN: 48, Cr: 2.5. Baseline Cr 1.2 cr 2.2 tod (4) Dyslipidemia: Plan: on statin Admission and Anticipated Discharge Date Admission Date: May 16, 2022 Subjective Diarrhea resolved no abdominal pain wants to advance diet no pains' want to ambulate 'afebrile Review of Systems Review of Systems: ROS unremarkable Physical Exam Neck: trachea midline, no thyromegaly Respiratory: normal respiratory effort, lungs clear to auscultation Cardiovascular: RRR, no murmur, no edema Gastrointestinal (Abdomen): normal bowel sounds, soft, nontender, no hepatosplenomegaly colostomy bag seen Neurologic: EOMI, NO facial droop no dysarthria Results & Data Results & Data ([facility]) Vital Signs (Past 12 Hours) Vital Signs Temp Pulse Pulse Resp BP Pulse Ox Pulse Ox 05/17/22 19:32 37 C 63 18 125/68 96 05/17/22 16:20 94 05/17/22 16:04 60 05/17/22 15:36 36.6 C 60 18 120/76 97 05/17/22 11:58 36.9 C 65 17 107/62 97 O2 Del Method O2 Del Method 01/12/23 19:32 Room Air 05/17/22 16:20 Room Air 05/17/22 16:04 05/17/22 15:36 Room Air 05/17/22 11:58 Room Air (1) Diarrhea Diarrhea type: unspecified type Qualified Code(s): R19.7 - Diarrhea, unspecified
[2022-05-17] MEDS: ATORVASTATIN 20 MG TAB PO SCH (21:43)
[2022-05-17] MEDS: traZODone HCL 50 MG TAB PO SCH (21:44)
[2022-05-18] MEDS: PIPERACILLIN/TAZOBACTAM 3.375 GM in DEXTROSE 5% 100 ML IV SCH ×3 (05:11→20:20)
[2022-05-18] MEDS: PANTOprazole 40 MG TAB PO SCH (05:11)
[2022-05-18 06:06] LABS: Basophils # (auto) 0.11 K/uL (0-0.2); Basophils % (auto) 0.7 %; Eosinophils # (auto) 0.27 K/uL (0-0.50); Eosinophils % (auto) 1.8 %; Hematocrit (blood only) 33.1 % (40.1-51.0); Hemoglobin 11.5 g/dl (14.0-18.0); Immature Granulocytes # (auto) 0.18 K/uL (0.00-0.02); Immature Granulocytes % (auto) 1.2 %; Lymphocytes # (auto) 2.74 K/uL (1.2-3.4); Lymphocytes % (auto) 18.2 %; Mean Corpuscular Hemoglobin 33.1 pg (25.0-34.0); Mean Corpuscular Hgb Conc 34.7 g/dL (32.0-36.0); Mean Corpuscular Volume 95.4 fL (80.0-100.0); Mean Platelet Volume 9.8 fL (9.4-12.4); Monocytes # (auto) 1.28 K/uL (0.24-0.82); Monocytes % (auto) 8.5 %; Neutrophils # (auto) 10.51 K/uL (1.4-6.5); Neutrophils % (auto) 69.6 %; Platelet Count 411 K/uL (130-400); RDW Standard Deviation 45.5 fL (36.4-46.3); Red Blood Count 3.47 M/uL (4.63-6.08); White Blood Count 15.09 K/ul (4.8-10.8)
[2022-05-18 06:34] LABS: BUN Creatinine Ratio 20.1 (10-20); Calcium 8.1 mg/dl (8.5-10.1); Creatinine Clr Calc Pharmacy 36.1 ml/min; Est GFR (Non-African American) 36.2 ml/min; Magnesium 1.8 mg/dl (1.7-2.4); Potassium 3.6 mmol/L (3.5-5.1)
[2022-05-18] MEDS: FERROUS SULFATE 325 MG TAB PO SCH (08:11)
[2022-05-18] MEDS: GABAPENTIN 300 MG CAP PO SCH ×2 (08:11→20:19)
[2022-05-18] MEDS: ATENOLOL 50 MG TABLET PO SCH ×2 (08:12→20:19)
[2022-05-18] MEDS: HEPARIN SOD 5,000 UNIT/0.5 ML VIAL SQ SCH ×2 (08:12→20:18)
--- NOTE | 2022-05-18 10:59 | Nephrology Progress Note ---
Date of Service May 18, 2022 Assessment & Plan Admission and Anticipated Discharge Date Admission Date: May 16, 2022 Subjective S=----no new issues. less Diarrhea PHYSICAL EXAMINATION: GENERAL: Elderly white male who is not in any respiratory distress. He is awake, alert, oriented x3 and was able to give me full account of his medical problem list as well as event prior to hospitalization. HEENT: Normocephalic, atraumatic. Mucous membrane is moist. NECK: Supple. No jugular venous distention. CHEST: Bilaterally clear to auscultation. Occasional expiratory wheezing. CARDIOVASCULAR: Regular rate and rhythm. No murmur._ ABDOMEN: Slightly tender. He does have an ileal conduit bag in the right lower quadrant. EXTREMITIES: Show no edema. NEUROLOGIC: Normal speech. Awake, alert, oriented x3. No focal deficit. VITAL SIGNS: Blood pressure 119/60, pulse rate 64, temperature 36.8, 96% on room air. SKIN: Shows no rash. LABORATORY TEST: At baseline, his creatinine is 1.2; on admission, it was 2.51, this morning is slightly better at 1.74. Sodium is now 132 CT abdomen and pelvis reviewed. Chest x-ray did not show any overt CHF or pneumonia. ASSESSMENT AND PLAN: An 81-year-old male with history of bladder cancer, status post cystectomy with ileal conduit more than 16 years ago with a baseline CKD IIIA, baseline creatinine 1.2 now, presented to the hospital with 10-12 days history of diarrhea, nausea and vomiting. He was found to have acute renal failure for which I have been consulted. 1. Acute renal failure: This appears to be prerenal in etiology secondary to nausea, vomiting and mainly diarrhea for the last 10-12 days. His blood pressure was also low at the time of admission. Given all this, this is prerenal acute renal failure. Fortunately, creatinine is coming down with the use of IV fluid. I agree with holding amlodipine for now to allow higher blood pressure. Should continue to take atenolol. I expect the renal function to be back to baseline by tomorrow. 2. Possible UTI. This urine sample was from the ileal conduit, so there is always significant bacterial contamination and it is nearly impossible to interp ret the result of the urine test in this type of sample. In any case, he is getting broad-spectrum antibiotics, which I believe can be continued, but I am not convinced he has UTI. 3 Hyponatremia---stable in the low 130's Results & Data ([facility]) Vital Signs (Past 12 Hours) Vital Signs Temp Pulse Pulse Resp BP Pulse Ox O2 Del Method 05/18/22 07:30 36.8 C 64 16 123/71 96 Room Air 05/18/22 07:02 62 05/18/22 02:05 62 05/17/22 23:07 37 C 62 18 128/77 97 Room Air
--- NOTE | 2022-05-18 19:12 | Hospitalist Progress Note ---
Date of Service May 18, 2022 Assessment & Plan (1) Diarrhea: Plan (1) Diarrhea: Plan: Patient is 81 y/o M with PMH HTN, HLD, anxiety, bladder cancer s/p cystectomy and ileal conduit, tobacco use presented to ER with complaint of diarrhea x 10- 14 days. KUB: Suspect a mild ileus. No evidence for bowel obstruction. CT Abd/pelvis: Wall thickening of the second and third portions of the duodenum with mild adjacent stranding. This favors duodenitis. Pancreatitis could appear similar although is considered less likely. No extraluminal gas. Mildly distended fluid-filled colon. This may reflect a diarrheal state. No bowel obstruction. Stool studies unremarkable Blood cultures unremarkable tolerating diet does not want to be discharged until diarrhea improves-had diarrhea today will consult GI in am tolerating diet (4) Hypertension: Plan: Initially hypotensive in ER, improved after IVF Continue on atenolol with holding parameters Holding amlodipine will monitor (6) History of carcinoma of bladder: Plan: History bladder cancer s/p cystectomy and ileal conduit (2) Hyponatremia: Plan: Initial sodium: 130. Ns=a 133 today nephrology following stable (3) JAROCHO (acute kidney injury): Plan: JAROCHO on CKD III BUN: 48, Cr: 2.5. Baseline Cr 1.2 cr 1.7 today. (4) Dyslipidemia: Plan: on statin DVT px hep sub q Disposition to be determined Admission and Anticipated Discharge Date Admission Date: May 16, 2022 Subjective says still having diarrhea no abdominal pain no nausea eating ok ambulating fine does not want to go home until diarrhea resolved Review of Systems Review of Systems: ROS unremarkable Physical Exam Neck: normal visual inspection Respiratory: normal respiratory effort, lungs clear to auscultation Cardiovascular: RRR, no murmur, no edema Gastrointestinal (Abdomen): normal bowel sounds, soft, nontender, no hepatosplenomegaly s/p ileal coduict Neurologic: alert and oriented speech clear no facial droop obeys simple commands moves extremities Results & Data Results & Data ([facility]) Vital Signs (Past 12 Hours) Vital Signs Temp Pulse Pulse Resp BP BP Pulse Ox 05/18/22 18:41 37.4 C 60 18 123/71 97 05/18/22 16:35 63 05/18/22 16:00 05/18/22 16:10 36.9 C 66 18 133/68 96 05/18/22 11:01 37.1 C 60 18 115/66 95 05/18/22 07:30 36.8 C 64 16 123/71 96 Pulse Ox O2 Del Method O2 Del Method 05/18/22 18:41 Room Air 05/18/22 16:35 05/18/22 16:00 95 Room Air 05/18/22 16:10 Room Air 05/18/22 11:01 Room Air 05/18/22 07:30 Room Air (1) Diarrhea Diarrhea type: unspecified type Qualified Code(s): R19.7 - Diarrhea, unspecified
[2022-05-18] MEDS: traZODone HCL 50 MG TAB PO SCH (20:19)
[2022-05-18] MEDS: ATORVASTATIN 20 MG TAB PO SCH (20:19)
[2022-05-19] MEDS: PANTOprazole 40 MG TAB PO SCH (05:36)
[2022-05-19] MEDS: PIPERACILLIN/TAZOBACTAM 3.375 GM in DEXTROSE 5% 100 ML IV SCH ×3 (05:36→20:41)
[2022-05-19] MEDS: HEPARIN SOD 5,000 UNIT/0.5 ML VIAL SQ SCH ×2 (08:07→20:42)
[2022-05-19] MEDS: FERROUS SULFATE 325 MG TAB PO SCH (08:07)
[2022-05-19] MEDS: GABAPENTIN 300 MG CAP PO SCH ×2 (08:07→20:40)
[2022-05-19] MEDS: ATENOLOL 50 MG TABLET PO SCH ×2 (08:07→20:40)
[2022-05-19] MEDS ORDERED: STAT IV STA (09:59)
[2022-05-19] MEDS ORDERED: SODIUM BICARBONATE 8.4% 150 MEQ in DEXTROSE 5% 1,000 ML IV SCH (10:00)
--- NOTE | 2022-05-19 10:07 | Nephrology Progress Note ---
Date of Service May 19, 2022 Assessment & Plan (1) JAROCHO (acute kidney injury): Plan: Patient with acute kidney injury due to ischemic ATN in setting of diarrhea. A dmission creatinine in the lower twos but downtrending to 1.7 today. Baseline creatinine is 1.2. We will give sodium bicarbonate infusion at 8 mL/h. We will also give potassium chloride 40 mEq twice daily for 2 days. (2) CKD (chronic kidney disease), stage III: Plan: Patient with CKD stage III baseline creatinine 1.2. He now has metabolic acidosis. He also has hyponatremia. We will give sodium bicarbonate infusion as above. Avoid nephrotoxins. Admission and Anticipated Discharge Date Admission Date: May 16, 2022 Subjective Seen in follow-up for acute kidney injury.Still has diarrhea last night and this morning.No shortness of breath. Review of Systems Review of Systems: All other systems were reviewed and negative except as noted in HPI Physical Exam Physical Exam: General exam: Appears comfortable, no acute distress HEENT: Pupils are equal and reactive to light Neck: No JVD, neck is supple trachea is midline Respiratory system: Clear breath sounds bilaterally. Gastrointestinal: Abdomen is soft, non distended, non tender, bowel sounds are present CVS: Regular rate and rhythm. No murmurs, rubs or gallops Musculoskeletal: No joint or muscle tenderness Extremities: Non tender, no edema, peripheral pulses are present Neuro: Oriented, no tremors, no focal neurological deficits Skin: No rashes Results & Data ([facility]) Vital Signs (Past 12 Hours) Vital Signs Temp Pulse Resp BP Pulse Ox O2 Del Method 05/19/22 07:16 36.9 C 66 16 140/77 95 Room Air 05/19/22 03:02 37.1 C 62 16 134/55 L 94 Room Air 05/18/22 23:23 37 C 63 16 120/66 96 Room Air Laboratory Results 05/18/22 05:33
[2022-05-19] MEDS: POTASSIUM CHLORIDE 20 MEQ/15 ML UDC PO SCH ×2 (11:56→20:39)
--- NOTE | 2022-05-19 13:22 | Gastrointestinal Consultation ---
Date of Consultation May 19, 2022 Assessment & Plan (1) Diarrhea: Feeling much better at this time Stool Biofire negative If symptoms return, I would recommend a Colonoscopy with random colon biopsies for further evaluation, however, this still remains an acute diarrheal illness at present Consider trial of Questran 4 g in 8 oz glass of water daily if symptoms return. History of Present Illness Reason for Consultation: Diarrhea Requesting Physician: Dr. Adams Attending Physician: Anabel Juarez MD History of Present Illness Nadeem Goel is an 81 yo CM who presented to the ER on 05/16/2022 with complaints of 10-12 days of diarrhea. Upon arrival to the ER, he was noted to have an acute kidney injury and was subsequently admitted. He was seen by nephrology, who diagnosed his ARF as pre-renal in origin, and his Amlodipine therapy has been on hold. He is also being treated for a possible UTI with Zosyn therapy. His Cr levels have improved since his arrival, but are not back to baseline. A CT scan in the ER showed findings consistent with a duodenitis and his colon showed findings consistent with a diarrheal state. At the time I saw the patient, he was sitting up in bed eating his lunch without difficulty. He states that over the past few days he is having 1 BM per day, but it is not formed. He states that he has improved since his arrival and states that prior to his admission he was having up to 6 BM's per day. He denies any fevers, chills, nausea, vomiting, abdominal pain, hematemesis, melena, or hematochezia. He states that his last colonoscopy was at [facility] approximately 5 years ago. He did undergo a cholecystectomy over 15 years ago, but states he has not had diarrhea regularly. He denies any further complaints. Allergies Allergy/AdvReac Type Severity Reaction Status Date / Time meclizine Allergy Intermediate Swelling Verified 05/16/22 15:40 of tongue. aspirin AdvReac Unknown History of Verified 05/16/22 15:40 ulcers Home Medications Medication Instructions Recorded Confirmed Type acetaminophen 500 mg tablet 500 - 1,000 mg PO DIRECTED PRN 11/28/18 05/16/22 History (Tylenol Extra Strength) Pain atenolol 50 mg tablet 50 mg PO BID 11/28/18 05/16/22 History atorvastatin 20 mg tablet 20 mg PO PM 11/28/18 05/16/22 History cholecalciferol (vitamin D3) 10 400 unit PO DAILY 11/28/18 05/16/22 History mcg/mL (400 unit/mL) oral drops (D-Vi-Tish) clonazepam 1 mg tablet 0.5 mg PO BID PRN Anxiety 11/28/18 05/16/22 History clonazepam 1 mg tablet 1 mg PO HS PRN RESTLESSNESS 11/28/18 05/16/22 History ferrous sulfate 325 mg (65 mg 325 mg PO DAILY 11/28/18 05/16/22 History iron) tablet lorazepam 1 mg tablet 1 mg PO DIRECTED PRN BEFORE 11/28/18 05/16/22 History TRAVELING gtdqnspk-bodifgjl-fdftb acid 400 1 tab PO DAILY 11/28/18 05/16/22 History mcg-vit K 20 mcg-lycop 300 mcg tablet (Men's One Daily) omeprazole 20 mg capsule,delayed 20 mg PO DAILYBB 11/28/18 05/16/22 History release sennosides 8.6 mg tablet (Natural 8.6 mg PO BID 11/28/18 05/16/22 History Vegetable Laxative (sennosides)) oxycodone 5 mg tablet 5 mg PO Q6H PRN pain #12 tabs 05/02/22 05/16/22 Rx amlodipine 5 mg tablet 5 mg PO DAILY 05/16/22 05/16/22 History gabapentin 300 mg capsule 300 mg PO TID 05/16/22 05/16/22 History trazodone 50 mg tablet 50 mg PO HS 05/16/22 05/16/22 History Patient History Medical History Anxiety CKD (chronic kidney disease), stage III Dyslipidemia History of carcinoma of bladder History of colon polyps Hypertension Macular degeneration Tinnitus Tobacco use Surgical History H/O total cystectomy with ileal conduit Status post lumbar surgery Family History Other Cancer Coronary heart disease Social History Smoking Status: Current some day smoker Cigarettes Per Day: 1-2 per day up to 12 per day, intermittently; Hx Alcohol Use: Yes Alcohol type: beer Alcohol Intake Frequency: 2-3 x/Week Hx Substance Use: No Preferred Language: American Communication Ability: Effective Chemical Processing Technician Required: No Beliefs That Will Affect Care: None marital status: / Current Living Situation: Alone Other Information That Helps Us Care for You: No Feels Safe at Home: Yes Safety Concerns: Feels Safe At This Time Assistive Devices: Cane, Glasses and Walker Review of Systems Review of Systems: All systems reviewed & are unremarkable except as noted in Subjective Physical Exam Constitutional: WD/WN, vitals as above well developed; no acute distress Eyes: + anicteric sclerae ENMT: external ear and nose normal, oropharynx normal Neck: trachea midline, no thyromegaly Respiratory: normal respiratory effort, lungs clear to auscultation Cardiovascular: RRR, no murmur, no edema Gastrointestinal (Abdomen): normal bowel sounds, soft, nontender, no hepatosplenomegaly Skin: no rashes, warm and dry Psychiatric: A+Ox3, euthymic affect Results & Data ([facility]) Vital Signs (Past 12 Hours) Vital Signs Temp Pulse Pulse Resp BP Pulse Ox O2 Del Method 05/19/22 08:00 68 05/19/22 11:48 36.9 C 66 16 141/71 H 94 Room Air 05/19/22 07:16 36.9 C 66 16 140/77 95 Room Air 05/19/22 03:02 37.1 C 62 16 134/55 L 94 Room Air PG Care Time/CCT Total # of Minutes Spent Total Time Spent with Patient: Total time spent is greater than 50% in coordination of care (as documented) at patient's floor/unit and/or counseling patient: Coding Level of Care Code INP/OBS CONSULT LVL 3, 45 MIN Diagnoses Diarrhea R19.7 Diarrhea type: unspecified type (1) Diarrhea Diarrhea type: unspecified type Qualified Code(s): R19.7 - Diarrhea, unspecified
--- NOTE | 2022-05-19 13:32 | Hospitalist Progress Note ---
Date of Service May 19, 2022 Assessment & Plan (1) Diarrhea: Plan Diarrhea: Patient is 81 y/o M with PMH HTN, HLD, anxiety, bladder cancer s/p cystectomy and ileal conduit, tobacco use presented to ER with complaint of diarrhea x 10- 14 days. KUB: Suspect a mild ileus. No evidence for bowel obstruction. CT Abd/pelvis: Wall thickening of the second and third portions of the duodenum with mild adjacent stranding. This favors duodenitis. Pancreatitis could appear similar although is considered less likely. No extraluminal gas. Mildly distended fluid-filled colon. This may reflect a diarrheal state. No bowel obstruction. Stool studies unremarkable Blood cultures unremarkable Tolerating diet Appreciate GI input and recommendation-Will start Questran 4 g in 8 ounces of water daily The frequency of diarrhea has been reducing Hypertension: Initially hypotensive in ER, improved after IVF Continue on atenolol with holding parameters Blood pressure remains on the upper side and 141/71 We will restart amlodipine History of carcinoma of bladder: History bladder cancer s/p cystectomy and ileal conduit Ileal conduit is draining clear urine Hyponatremia: Initial sodium: 130. Ns=a 133 today nephrology following IV fluid has been adjusted and the sodium level is 132 as of 05/18/2022 JAROCHO (acute kidney injury): JAROCHO on CKD III-creatinine was 2.51 on admission Received and receiving intravenous fluid Creatinine has been 1.74 as of 05/18/2022 Dyslipidemia: on statin DVT px hep sub q Disposition Likely discharge in 2 to 3 days Admission and Anticipated Discharge Date Admission Date: May 16, 2022 Subjective 05/19/2022 The patient was seen and examined in medical telemetry unit He has been still having diarrhea but the frequency has decreased Still remains weak and lethargic Denies any other significant symptoms Review of Systems Review of Systems: All systems reviewed and are unremarkable except as noted below Physical Exam Physical Exam: Lying in bed without any acute distress Constitutional: well developed, well nourished, + ill appearing and average body habitus Eyes: PERRL, conjunctivae normal, anicteric sclerae ENMT: external ear and nose normal, oropharynx normal Respiratory: no respiratory distress Auscultation: lungs clear to auscultation bilaterally Cardiovascular: Rate/Rhythm: regular rate and regular rhythm; not tachycardic Heart Sounds: normal S1 and normal S2; no murmur Extremities: no edema Gastrointestinal (Abdomen): Inspection/Auscultation: normal bowel sounds; abdomen not distended Percussion/Palpation: abdomen soft; abdomen nontender Ilial conduit in situ Musculoskeletal: No acute arthritis in any joint Neurologic: normal touch/pain/proprioception and moves all extremities; no focal motor deficits Lymphatic: no cervical or axillary lymphadenopathy Results & Data Results & Data ([facility]) Vital Signs (Past 12 Hours) Vital Signs Temp Pulse Pulse Resp BP Pulse Ox O2 Del Method 05/19/22 08:00 68 05/19/22 11:48 36.9 C 66 16 141/71 H 94 Room Air 05/19/22 07:16 36.9 C 66 16 140/77 95 Room Air 05/19/22 03:02 37.1 C 62 16 134/55 L 94 Room Air Medications Administered Current Inpatient Medications Acetaminophen (Acetaminophen 325 Mg Tab) 650 mg PO Q4H PRN PRN Reason: Pain or Fever Stop: 06/15/22 16:19 Atenolol (Atenolol 50 Mg Tablet) 50 mg PO BID ALEKSANDRA Stop: 06/15/22 20:59 Last Admin: 05/19/22 08:07 Dose: 50 mg Atorvastatin Calcium (Atorvastatin 20 Mg Tab) 20 mg PO PM ALEKSANDRA Stop: 06/15/22 20:59 Last Admin: 05/18/22 20:19 Dose: 20 mg Clonazepam (Clonazepam 1 Mg Tab) 1 mg PO HS PRN PRN Reason: RESTLESSNESS Stop: 06/15/22 16:19 Clonazepam (Clonazepam 0.5 Mg Tab) 0.5 mg PO BID PRN PRN Reason: Anxiety Stop: 06/15/22 16:19 Ferrous Sulfate (Ferrous Sulfate 325 Mg Tab) 325 mg PO DAILY ALEKSANDRA Stop: 06/16/22 08:59 Last Admin: 05/19/22 08:07 Dose: 325 mg Gabapentin (Gabapentin 300 Mg Cap) 300 mg PO BID ALEKSANDRA Stop: 06/15/22 20:59 Last Admin: 05/19/22 08:07 Dose: 300 mg Heparin Sodium (Porcine) (Heparin Sod 5,000 Unit/0.5 Ml Vial) 5,000 units SQ Q12 ALEKSANDRA Stop: 06/15/22 20:59 Last Admin: 05/19/22 08:07 Dose: 5,000 units Piperacillin Sod/Tazobactam (Sod 3.375 gm/ Dextrose) 115 mls @ 28.75 mls/hr IV Q8H [facility]; Protocol Stop: 05/26/22 20:59 Last Admin: 05/19/22 13:16 Dose: 28.8 mls/hr Sodium Bicarbonate 150 meq/ (Dextrose) 1,150 mls @ 80 mls/hr IV .[id number] [facility] Stop: 05/20/22 00:22 Last Admin: 05/19/22 11:56 Dose: 80 mls/hr Ondansetron HCl (Ondansetron Inj 2 Mg/Ml 2 Ml Vial) 4 mg IV Q6H PRN PRN Reason: Nausea Stop: 06/15/22 16:19 Pantoprazole Sodium (Pantoprazole 40 Mg Tab) 40 mg PO DAILYBB [facility]; Protocol Stop: 06/16/22 06:29 Last Admin: 05/19/22 05:36 Dose: 40 mg Potassium Chloride (Potassium Chloride 20 Meq/15 Ml Udc) 40 meq PO BID [facility] Stop: 05/20/22 21:01 Last Admin: 05/19/22 11:56 Dose: 40 meq Trazodone HCl (Trazodone Hcl 50 Mg Tab) 50 mg PO HS [facility] Stop: 06/15/22 20:59 Last Admin: 05/18/22 20:19 Dose: 50 mg (1) Diarrhea Diarrhea type: unspecified type Qualified Code(s): R19.7 - Diarrhea, unspecified
[2022-05-19] MEDS: amLODIPine BESYLATE 5 MG TAB PO SCH (14:50)
[2022-05-19] MEDS: traZODone HCL 50 MG TAB PO SCH (20:40)
[2022-05-19] MEDS: ATORVASTATIN 20 MG TAB PO SCH (20:40)
[2022-05-20] MEDS: PIPERACILLIN/TAZOBACTAM 3.375 GM in DEXTROSE 5% 100 ML IV SCH ×3 (06:06→20:37)
[2022-05-20] MEDS: PANTOprazole 40 MG TAB PO SCH (06:06)
[2022-05-20 07:05] LABS: Basophils % (auto) 0.6 %; Eosinophils # (auto) 0.23 K/uL (0-0.50); Eosinophils % (auto) 1.3 %; Hematocrit (blood only) 33.3 % (40.1-51.0); Hemoglobin 11.7 g/dl (14.0-18.0); Immature Granulocytes # (auto) 0.19 K/uL (0.00-0.02); Immature Granulocytes % (auto) 1.1 %; Lymphocytes # (auto) 2.16 K/uL (1.2-3.4); Lymphocytes % (auto) 11.9 %; Mean Corpuscular Hemoglobin 32.8 pg (25.0-34.0); Mean Corpuscular Hgb Conc 35.1 g/dL (32.0-36.0); Mean Corpuscular Volume 93.3 fL (80.0-100.0); Mean Platelet Volume 10.1 fL (9.4-12.4); Monocytes # (auto) 1.69 K/uL (0.24-0.82); Monocytes % (auto) 9.3 %; Neutrophils # (auto) 13.71 K/uL (1.4-6.5); Neutrophils % (auto) 75.8 %; Platelet Count 407 K/uL (130-400); RDW Coefficient of Variation 12.7 % (11.5-14.5); RDW Standard Deviation 43.6 fL (36.4-46.3); Red Blood Count 3.57 M/uL (4.63-6.08); White Blood Count 18.08 K/ul (4.8-10.8)
[2022-05-20 07:32] LABS: BUN Creatinine Ratio 10.4 (10-20); Calcium 8.3 mg/dl (8.5-10.1); Creatinine Clr Calc Pharmacy 46.5 ml/min; Est GFR (African American) 57.1 ml/min; Est GFR (Non-African American) 49.2 ml/min; Magnesium 1.4 mg/dl (1.7-2.4)
[2022-05-20] MEDS: ATENOLOL 50 MG TABLET PO SCH ×2 (08:02→20:35)
[2022-05-20] MEDS: GABAPENTIN 300 MG CAP PO SCH ×2 (08:02→20:37)
[2022-05-20] MEDS: FERROUS SULFATE 325 MG TAB PO SCH (08:03)
[2022-05-20] MEDS: amLODIPine BESYLATE 5 MG TAB PO SCH (08:04)
[2022-05-20] MEDS: POTASSIUM CHLORIDE 20 MEQ/15 ML UDC PO SCH ×2 (08:06→20:35)
[2022-05-20] MEDS: HEPARIN SOD 5,000 UNIT/0.5 ML VIAL SQ SCH ×2 (08:10→20:35)
[2022-05-20] MEDS: MAGNESIUM SULFATE / D5W 1 GM/100 ML BAG IV SCH ×2 (09:17→11:09)
[2022-05-20] MEDS: ACETAMINOPHEN 325 MG TAB PO PRN ×2 (09:43→20:37)
--- NOTE | 2022-05-20 10:30 | Nephrology Progress Note ---
Date of Service May 20, 2022 Assessment & Plan (1) JAROCHO (acute kidney injury): Plan: Patient with acute kidney injury due to ischemic ATN in setting of diarrhea. A dmission creatinine in the lower twos but downtrending to 1.35 today. Baseline creatinine is 1.2. Sodium of 135 and potassium of 4. Continue to monitor potassium and replace as needed in setting of diarrhea. (2) CKD (chronic kidney disease), stage III: Plan: Patient with CKD stage III baseline creatinine 1.2. Renal function improving after fluid resuscitation and diarrhea subsiding. Avoid nephrotoxins. Admission and Anticipated Discharge Date Admission Date: May 16, 2022 Subjective Seen in follow-up for acute kidney injury on CKD. He feels better today. Diarrhea is less. Creatinine downtrending. Magnesium was low Review of Systems Review of Systems: All other systems were reviewed and negative except as noted in HPI Physical Exam Physical Exam: General exam: Appears comfortable, no acute distress HEENT: Pupils are equal and reactive to light Neck: No JVD, neck is supple trachea is midline Respiratory system: Clear breath sounds bilaterally. Gastrointestinal: Abdomen is soft, non distended, non tender, bowel sounds are present CVS: Regular rate and rhythm. No murmurs, rubs or gallops Musculoskeletal: No joint or muscle tenderness Extremities: Non tender, no edema, peripheral pulses are present Neuro: Oriented, no tremors, no focal neurological deficits Skin: No rashes Results & Data ([facility]) Vital Signs (Past 12 Hours) Vital Signs Temp Pulse Pulse Resp BP Pulse Ox O2 Del Method 05/20/22 07:18 68 05/20/22 06:04 36.6 C 66 18 138/72 96 Room Air 05/20/22 02:45 36.9 C 62 16 136/63 95 Room Air Laboratory Results 05/20/22 06:25 05/20/22 06:25 WBC 18.08 H RBC 3.57 L MCV 93.3 MCH 32.8 MCHC 35.1 RDW Std Deviation 43.6 RDW Coeff of Hemanth 12.7 Plt Count 407 H MPV 10.1
--- NOTE | 2022-05-20 12:46 | Hospitalist Progress Note ---
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 KUB: Suspect a mild ileus. No evidence for bowel obstruction. CT Abd/pelvis: Wall thickening of the second and third portions of the duodenum with mild adjacent stranding. This favors duodenitis. Pancreatitis could appear similar although is considered less likely. No extraluminal gas. Mildly distended fluid-filled colon. This may reflect a diarrheal state. No bowel obstruction. Stool studies unremarkable Blood cultures unremarkable Tolerating diet Appreciate GI input and recommendation-Will start Questran 4 g in 8 ounces of water daily Stool is formed from this morning White count is elevated we will send the stool for C. 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 Ns=a 133 today nephrology following IV fluid has been adjusted and the sodium level is 132 as of 05/18/2022 JAROCHO (acute kidney injury): JAROCHO on CKD III-creatinine was 2.51 on admission Received and receiving intravenous fluid Creatinine has been 1.74 as of 05/18/2022 Creatinine has been normalized to 1.3 as of 05/20/2022 Dyslipidemia: on statin DVT px hep sub q Disposition Likely discharge in 2 to 3 days Admission and Anticipated Discharge Date Admission Date: May 16, 2022 Subjective 05/19/2022 The patient was seen and examined in medical telemetry unit He has been still having diarrhea but the frequency has decreased Still remains weak and lethargic Denies any other significant symptoms 05/20/2022 The patient was seen and examined in medical telemetry unit He has been feeling much better Stool seems to be formed and the weakness has improved His white count is elevated to 18,000 without any fever and or chills Review of Systems Review of Systems: All systems reviewed and are unremarkable except as noted below Physical Exam Physical Exam: Lying in bed without any acute distress Constitutional: well developed, well nourished, + ill appearing and average body habitus Eyes: PERRL, conjunctivae normal, anicteric sclerae ENMT: external ear and nose normal, oropharynx normal Respiratory: no respiratory distress Auscultation: lungs clear to auscultation bilaterally Cardiovascular: Rate/Rhythm: regular rate and regular rhythm; not tachycardic Heart Sounds: normal S1 and normal S2; no murmur Extremities: no edema Gastrointestinal (Abdomen): Inspection/Auscultation: normal bowel sounds; abdomen not distended Percussion/Palpation: abdomen soft; abdomen nontender Neurologic: normal touch/pain/proprioception and moves all extremities; no focal motor deficits Lymphatic: no cervical or axillary lymphadenopathy Results & Data Results & Data ([facility]) Vital Signs (Past 12 Hours) Vital Signs Temp Pulse Pulse Resp BP BP Pulse Ox 05/20/22 11:07 37.1 C 68 18 149/74 H 96 05/20/22 07:18 68 05/20/22 06:04 36.6 C 66 18 138/72 96 05/20/22 02:45 36.9 C 62 16 136/63 95 O2 Del Method 05/20/22 11:07 Room Air 05/20/22 07:18 05/20/22 06:04 Room Air 05/20/22 02:45 Room Air Laboratory Results Short CBC 05/20/22 Range/Units 06:25 WBC 18.08 H (4.8-10.8) K/ul Hgb 11.7 L (14.0-18.0) g/dl Hct 33.3 L (40.1-51.0) % Plt Count 407 H (130-400) K/uL BMP 05/20/22 06:25 Sodium 135 L Potassium 4.0 Chloride 104 Carbon Dioxide 26 BUN 14 Creatinine 1.35 Glucose 112 H Calcium 8.3 L Medications Administered Current Inpatient Medications Acetaminophen (Acetaminophen 325 Mg Tab) 650 mg PO Q4H PRN PRN Reason: Pain or Fever Stop: 06/15/22 16:19 Last Admin: 05/20/22 09:43 Dose: 650 mg Amlodipine Besylate (Amlodipine Besylate 5 Mg Tab) 5 mg PO DAILY [facility] Stop: 06/18/22 13:44 Last Admin: 05/20/22 08:04 Dose: 5 mg Atenolol (Atenolol 50 Mg Tablet) 50 mg PO BID ALEKSANDRA Stop: 06/15/22 20:59 Last Admin: 05/20/22 08:02 Dose: 50 mg Atorvastatin Calcium (Atorvastatin 20 Mg Tab) 20 mg PO PM ALEKSANDRA Stop: 06/15/22 20:59 Last Admin: 05/19/22 20:40 Dose: 20 mg Clonazepam (Clonazepam 1 Mg Tab) 1 mg PO HS PRN PRN Reason: RESTLESSNESS Stop: 06/15/22 16:19 Clonazepam (Clonazepam 0.5 Mg Tab) 0.5 mg PO BID PRN PRN Reason: Anxiety Stop: 06/15/22 16:19 Ferrous Sulfate (Ferrous Sulfate 325 Mg Tab) 325 mg PO DAILY ALEKSANDRA Stop: 06/16/22 08:59 Last Admin: 05/20/22 08:03 Dose: 325 mg Gabapentin (Gabapentin 300 Mg Cap) 300 mg PO BID [facility] Stop: 06/15/22 20:59 Last Admin: 05/20/22 08:02 Dose: 300 mg Heparin Sodium (Porcine) (Heparin Sod 5,000 Unit/0.5 Ml Vial) 5,000 units SQ Q12 ALEKSANDRA Stop: 06/15/22 20:59 Last Admin: 05/20/22 08:10 Dose: 5,000 units Piperacillin Sod/Tazobactam (Sod 3.375 gm/ Dextrose) 115 mls @ 28.75 mls/hr IV Q8H [facility]; Protocol Stop: 05/26/22 20:59 Last Infusion: 05/20/22 10:16 Dose: Infused Ondansetron HCl (Ondansetron Inj 2 Mg/Ml 2 Ml Vial) 4 mg IV Q6H PRN PRN Reason: Nausea Stop: 06/15/22 16:19 Pantoprazole Sodium (Pantoprazole 40 Mg Tab) 40 mg PO DAILYBB [facility]; Protocol Stop: 06/16/22 06:29 Last Admin: 05/20/22 06:06 Dose: 40 mg Potassium Chloride (Potassium Chloride 20 Meq/15 Ml Udc) 40 meq PO BID [facility] Stop: 05/20/22 21:01 Last Admin: 05/20/22 08:06 Dose: 40 meq Trazodone HCl (Trazodone Hcl 50 Mg Tab) 50 mg PO HS ALEKSNADRA Stop: 06/15/22 20:59 Last Admin: 05/19/22 20:40 Dose: 50 mg (1) Diarrhea Diarrhea type: unspecified type Qualified Code(s): R19.7 - Diarrhea, unspecified
[2022-05-20] MEDS: ATORVASTATIN 20 MG TAB PO SCH (20:36)
[2022-05-20] MEDS: traZODone HCL 50 MG TAB PO SCH (20:36)
[2022-05-20] MEDS: clonazePAM 1 MG TAB PO PRN (20:37)
[2022-05-21] MEDS: PIPERACILLIN/TAZOBACTAM 3.375 GM in DEXTROSE 5% 100 ML IV SCH ×3 (05:47→20:03)
[2022-05-21] MEDS: PANTOprazole 40 MG TAB PO SCH (05:47)
[2022-05-21 06:44] LABS: Basophils # (auto) 0.09 K/uL (0-0.2); Basophils % (auto) 0.5 %; Eosinophils # (auto) 0.41 K/uL (0-0.50); Eosinophils % (auto) 2.5 %; Hematocrit (blood only) 33.3 % (40.1-51.0); Hemoglobin 11.7 g/dl (14.0-18.0); Immature Granulocytes # (auto) 0.23 K/uL (0.00-0.02); Immature Granulocytes % (auto) 1.4 %; Lymphocytes # (auto) 2.51 K/uL (1.2-3.4); Lymphocytes % (auto) 15.1 %; Mean Corpuscular Hemoglobin 33.5 pg (25.0-34.0); Mean Corpuscular Hgb Conc 35.1 g/dL (32.0-36.0); Mean Corpuscular Volume 95.4 fL (80.0-100.0); Mean Platelet Volume 10.1 fL (9.4-12.4); Monocytes # (auto) 1.57 K/uL (0.24-0.82); Monocytes % (auto) 9.4 %; Neutrophils # (auto) 11.85 K/uL (1.4-6.5); Neutrophils % (auto) 71.1 %; Platelet Count 404 K/uL (130-400); RDW Coefficient of Variation 12.9 % (11.5-14.5); RDW Standard Deviation 45.3 fL (36.4-46.3); Red Blood Count 3.49 M/uL (4.63-6.08); White Blood Count 16.66 K/ul (4.8-10.8)
[2022-05-21 07:04] LABS: BUN Creatinine Ratio 6.9 (10-20); Calcium 8.5 mg/dl (8.5-10.1); Creatinine Clr Calc Pharmacy 48.3 ml/min; Est GFR (African American) 59.7 ml/min; Est GFR (Non-African American) 51.5 ml/min; Magnesium 1.6 mg/dl (1.7-2.4); Phosphorus 2.1 mg/dl (2.5-4.9); Potassium 4.2 mmol/L (3.5-5.1)
[2022-05-21] MEDS: ATENOLOL 50 MG TABLET PO SCH ×2 (08:49→20:02)
[2022-05-21] MEDS: FERROUS SULFATE 325 MG TAB PO SCH (08:49)
[2022-05-21] MEDS: amLODIPine BESYLATE 5 MG TAB PO SCH (08:49)
[2022-05-21] MEDS: HEPARIN SOD 5,000 UNIT/0.5 ML VIAL SQ SCH ×2 (08:49→20:01)
[2022-05-21] MEDS: GABAPENTIN 300 MG CAP PO SCH ×2 (08:49→20:02)
[2022-05-21] MEDS: ACETAMINOPHEN 325 MG TAB PO PRN ×2 (08:51→20:03)
--- NOTE | 2022-05-21 12:33 | Hospitalist Progress Note ---
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 KUB: Suspect a mild ileus. No evidence for bowel obstruction. CT Abd/pelvis: Wall thickening of the second and third portions of the duodenum with mild adjacent stranding. This favors duodenitis. Pancreatitis could appear similar although is considered less likely. No extraluminal gas. Mildly distended fluid-filled colon. This may reflect a diarrheal state. No bowel obstruction. Stool studies unremarkable Blood cultures unremarkable Tolerating diet Appreciate GI input and recommendation-Will start Questran 4 g in 8 ounces of water daily Stool is formed from this morning Diarrhea is controlled and C. 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 Ns=a 133 today nephrology following IV fluid has been adjusted and the sodium level is 132 as of 05/18/2022 JAROCHO (acute kidney injury): JAROCHO on CKD III-creatinine was 2.51 on admission Received and receiving intravenous fluid Creatinine has been 1.74 as of 05/18/2022 Creatinine has been normalized to 1.3 as of 05/20/2022 Dyslipidemia: on statin DVT px hep sub q Disposition Likely discharge in 2 to 3 days Admission and Anticipated Discharge Date Admission Date: May 16, 2022 Subjective 05/19/2022 The patient was seen and examined in medical telemetry unit He has been still having diarrhea but the frequency has decreased Still remains weak and lethargic Denies any other significant symptoms 05/20/2022 The patient was seen and examined in medical telemetry unit He has been feeling much better Stool seems to be formed and the weakness has improved His white count is elevated to 18,000 without any fever and or chills 05/21/2022 The patient was seen and examined in medical telemetry unit His diarrhea is controlled and denies any abdominal pain No fever and or chills Remains generally weak Review of Systems Review of Systems: All systems reviewed and are unremarkable except as noted below Physical Exam Physical Exam: Lying in bed without any acute distress Constitutional: well developed, well nourished, + ill appearing and average body habitus Eyes: PERRL, conjunctivae normal, anicteric sclerae ENMT: external ear and nose normal, oropharynx normal Respiratory: no respiratory distress Auscultation: lungs clear to auscultation bilaterally Cardiovascular: Rate/Rhythm: regular rate and regular rhythm; not tachycardic Heart Sounds: normal S1 and normal S2; no murmur Extremities: no edema Gastrointestinal (Abdomen): Inspection/Auscultation: normal bowel sounds; abdomen not distended Percussion/Palpation: abdomen soft; abdomen nontender Musculoskeletal: No acute arthritis involving any joint Neurologic: normal touch/pain/proprioception and moves all extremities; no focal motor deficits Lymphatic: no cervical or axillary lymphadenopathy Results & Data Results & Data ([facility]) Vital Signs (Past 12 Hours) Vital Signs Temp Pulse Pulse Resp BP Pulse Ox O2 Del Method 05/21/22 12:07 36.8 C 58 L 20 135/66 96 Room Air 05/21/22 07:52 37.1 C 64 16 160/80 H 95 Room Air 05/21/22 06:54 66 05/21/22 03:02 37.0 C 61 18 143/79 H 97 Room Air Laboratory Results Short CBC 05/21/22 Range/Units 05:53 WBC 16.66 H (4.8-10.8) K/ul Hgb 11.7 L (14.0-18.0) g/dl Hct 33.3 L (40.1-51.0) % Plt Count 404 H (130-400) K/uL BMP 05/21/22 05:53 Sodium 132 L Potassium 4.2 Chloride 103 Carbon Dioxide 27 BUN 9 Creatinine 1.30 Glucose 100 H Calcium 8.5 Medications Administered Current Inpatient Medications Acetaminophen (Acetaminophen 325 Mg Tab) 650 mg PO Q4H PRN PRN Reason: Pain or Fever Stop: 02/10/23 16:19 Last Admin: 05/21/22 08:51 Dose: 650 mg Amlodipine Besylate (Amlodipine Besylate 5 Mg Tab) 5 mg PO DAILY [facility] Stop: 06/18/22 13:44 Last Admin: 05/21/22 08:49 Dose: 5 mg Atenolol (Atenolol 50 Mg Tablet) 50 mg PO BID ALEKSANDRA Stop: 06/15/22 20:59 Last Admin: 05/21/22 08:49 Dose: 50 mg Atorvastatin Calcium (Atorvastatin 20 Mg Tab) 20 mg PO PM ALEKSANDRA Stop: 06/15/22 20:59 Last Admin: 05/20/22 20:36 Dose: 20 mg Clonazepam (Clonazepam 1 Mg Tab) 1 mg PO HS PRN PRN Reason: RESTLESSNESS Stop: 06/15/22 16:19 Last Admin: 05/20/22 20:37 Dose: 1 mg Clonazepam (Clonazepam 0.5 Mg Tab) 0.5 mg PO BID PRN PRN Reason: Anxiety Stop: 06/15/22 16:19 Ferrous Sulfate (Ferrous Sulfate 325 Mg Tab) 325 mg PO DAILY [facility] Stop: 06/16/22 08:59 Last Admin: 05/21/22 08:49 Dose: 325 mg Gabapentin (Gabapentin 300 Mg Cap) 300 mg PO BID [facility] Stop: 06/15/22 20:59 Last Admin: 05/21/22 08:49 Dose: 300 mg Heparin Sodium (Porcine) (Heparin Sod 5,000 Unit/0.5 Ml Vial) 5,000 units SQ Q12 ALEKSANDRA Stop: 06/15/22 20:59 Last Admin: 05/21/22 08:49 Dose: 5,000 units Piperacillin Sod/Tazobactam (Sod 3.375 gm/ Dextrose) 115 mls @ 28.75 mls/hr IV Q8H [facility]; Protocol Stop: 05/26/22 20:59 Last Admin: 05/21/22 12:14 Dose: 28.8 mls/hr Ondansetron HCl (Ondansetron Inj 2 Mg/Ml 2 Ml Vial) 4 mg IV Q6H PRN PRN Reason: Nausea Stop: 06/15/22 16:19 Pantoprazole Sodium ([facility] 40 Mg Tab[facility] Protocol Stop: 06/16/22 06:29 Last Admin: 05/21/22 05:47 Dose: 40 mg Trazodone HCl (Trazodone Hcl 50 Mg Tab) 50 mg PO [facility] Stop: 06/15/22 20:59 Last Admin: 05/20/22 20:36 Dose: 50 mg (1) Diarrhea Diarrhea type: unspecified type Qualified Code(s): R19.7 - Diarrhea, unspecified
[2022-05-21] MEDS: ATORVASTATIN 20 MG TAB PO SCH (20:02)
[2022-05-21] MEDS: traZODone HCL 50 MG TAB PO SCH (20:02)
[2022-05-21] MEDS: clonazePAM 1 MG TAB PO PRN (20:03)
[2022-05-22] MEDS: PANTOprazole 40 MG TAB PO SCH (05:46)
[2022-05-22] MEDS: PIPERACILLIN/TAZOBACTAM 3.375 GM in DEXTROSE 5% 100 ML IV SCH ×2 (05:46→14:08)
[2022-05-22 06:48] LABS: Basophils # (auto) 0.12 K/uL (0-0.2); Basophils % (auto) 0.8 %; Eosinophils # (auto) 0.35 K/uL (0-0.50); Eosinophils % (auto) 2.3 %; Hematocrit (blood only) 33.3 % (40.1-51.0); Hemoglobin 11.5 g/dl (14.0-18.0); Immature Granulocytes # (auto) 0.16 K/uL (0.00-0.02); Lymphocytes # (auto) 2.34 K/uL (1.2-3.4); Lymphocytes % (auto) 15.1 %; Mean Corpuscular Hgb Conc 34.5 g/dL (32.0-36.0); Mean Corpuscular Volume 95.4 fL (80.0-100.0); Mean Platelet Volume 9.8 fL (9.4-12.4); Monocytes # (auto) 1.42 K/uL (0.24-0.82); Monocytes % (auto) 9.1 %; Neutrophils # (auto) 11.14 K/uL (1.4-6.5); Neutrophils % (auto) 71.7 %; Platelet Count 408 K/uL (130-400); RDW Coefficient of Variation 12.8 % (11.5-14.5); RDW Standard Deviation 44.4 fL (36.4-46.3); Red Blood Count 3.49 M/uL (4.63-6.08); White Blood Count 15.53 K/ul (4.8-10.8)
[2022-05-22 07:28] LABS: BUN Creatinine Ratio 6.8 (10-20); Calcium 8.5 mg/dl (8.5-10.1); Creatinine Clr Calc Pharmacy 47.2 ml/min; Est GFR (African American) 58.1 ml/min; Est GFR (Non-African American) 50.1 ml/min; Potassium 4.3 mmol/L (3.5-5.1)
[2022-05-22] MEDS: HEPARIN SOD 5,000 UNIT/0.5 ML VIAL SQ SCH (08:47)
[2022-05-22] MEDS: FERROUS SULFATE 325 MG TAB PO SCH (08:47)
[2022-05-22] MEDS: GABAPENTIN 300 MG CAP PO SCH (08:47)
[2022-05-22] MEDS: ATENOLOL 50 MG TABLET PO SCH (08:47)
[2022-05-22] MEDS: amLODIPine BESYLATE 5 MG TAB PO SCH (08:47)
--- NOTE | 2022-05-22 12:10 | Hospitalist Progress Note ---
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 KUB: Suspect a mild ileus. No evidence for bowel obstruction. CT Abd/pelvis: Wall thickening of the second and third portions of the duodenum with mild adjacent stranding. This favors duodenitis. Pancreatitis could appear similar although is considered less likely. No extraluminal gas. Mildly distended fluid-filled colon. This may reflect a diarrheal state. No bowel obstruction. Stool studies unremarkable Blood cultures unremarkable Tolerating diet Appreciate GI input and recommendation-Will start Questran 4 g in 8 ounces of water daily Stool is formed from this morning Diarrhea is controlled and C. 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 Ns=a 133 today nephrology following IV fluid has been adjusted and the sodium level is 132 as of 05/18/2022 JAROCHO (acute kidney injury): JAROCHO on CKD III-creatinine was 2.51 on admission Received and receiving intravenous fluid Creatinine has been 1.74 as of 05/18/2022 Creatinine has been normalized to 1.3 as of 05/20/2022 Remains normal Dyslipidemia: on statin DVT px hep sub q Disposition Likely discharge in 2 to 3 days Admission and Anticipated Discharge Date Admission Date: May 16, 2022 Subjective 05/19/2022 The patient was seen and examined in medical telemetry unit He has been still having diarrhea but the frequency has decreased Still remains weak and lethargic Denies any other significant symptoms 05/20/2022 The patient was seen and examined in medical telemetry unit He has been feeling much better Stool seems to be formed and the weakness has improved His white count is elevated to 18,000 without any fever and or chills 05/21/2022 The patient was seen and examined in medical telemetry unit His diarrhea is controlled and denies any abdominal pain No fever and or chills Remains generally weak 05/22/2022 The patient was seen and examined in medical telemetry unit He has been stable and denies any more diarrhea He does not have any fever and or chills or any urinary symptoms He will be discharged home this afternoon Review of Systems Review of Systems: All systems reviewed and are unremarkable except as noted below Physical Exam Physical Exam: Lying in bed without any acute distress Constitutional: well developed, well nourished, + ill appearing and average b vinay habitus Eyes: PERRL, conjunctivae normal, anicteric sclerae ENMT: external ear and nose normal, oropharynx normal Respiratory: no respiratory distress Auscultation: lungs clear to auscultation bilaterally Cardiovascular: Rate/Rhythm: regular rate and regular rhythm; not tachycardic Heart Sounds: normal S1 and normal S2; no murmur Extremities: no edema Gastrointestinal (Abdomen): Inspection/Auscultation: normal bowel sounds; abdomen not distended Percussion/Palpation: abdomen soft; abdomen nontender Neurologic: normal touch/pain/proprioception and moves all extremities; no focal motor deficits Lymphatic: no cervical or axillary lymphadenopathy Results & Data Results & Data ([facility]) Vital Signs (Past 12 Hours) Vital Signs Temp Pulse Resp BP BP Pulse Ox O2 Del Method 05/22/22 07:00 Room Air 05/22/22 10:52 36.8 C 65 18 151/76 H 94 Room Air 05/22/22 07:51 36.5 C 66 18 153/76 H 97 Room Air 05/22/22 02:50 36.9 C 65 16 143/78 H 95 Room Air 05/22/22 00:10 Room Air Laboratory Results Short CBC 05/22/22 Range/Units 05:56 WBC 15.53 H (4.8-10.8) K/ul Hgb 11.5 L (14.0-18.0) g/dl Hct 33.3 L (40.1-51.0) % Plt Count 408 H (130-400) K/uL [facility] 05/22/22 05:56 Sodium 134 L Potassium 4.3 Chloride 102 Carbon Dioxide 27 BUN 9 Creatinine 1.33 Glucose 94 Calcium 8.5 (1) Diarrhea Diarrhea type: unspecified type Qualified Code(s): R19.7 - Diarrhea, unspecified
--- NOTE | 2022-05-22 14:08 | Nephrology Progress Note ---
Date of Service May 22, 2022 Assessment & Plan (1) JAROCHO (acute kidney injury): Plan: prerenal stage 1 acute kidney injury due to ischemic ATN in setting of diarrhea. Admission creatinine in the lower twos but downtrending to 1.3 today. Baseline creatinine is 1.2. 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 Renal function improving after fluid resuscitation and diarrhea subsiding. Avoid nephrotoxins. Admission and Anticipated Discharge Date Admission Date: May 16, 2022 Subjective walked this am and some R knee pain (predates admission); else "I feel great" no dyspnea, no further n/v/d, no voiding issues or dypsnea Review of Systems 2 Review of Systems: All systems reviewed & are unremarkable except as noted in Subjective Physical Exam Physical Exam: General exam: Appears comfortable, no acute distress, sittign in bed on AR HEENT: eomi, nonicteric sclerae Neck: neck is supple trachea is midline Respiratory system: Clear breath sounds bilaterally w/ reasonable air mvt Gastrointestinal: Abdomen is soft, non distended, non tender, bowel sounds are present CVS: Regular rate and rhythm. No murmurs, rubs or gallops Musculoskeletal: No joint or muscle tenderness Extremities: Non tender, no edema, peripheral pulses are present Neuro: Oriented x 3, no tremors, no focal neurological deficits Skin: No rashes Results & Data ([facility]) Vital Signs (Past 12 Hours) Vital Signs Temp Pulse Pulse Pulse Resp BP BP 05/22/22 05:59 62 05/22/22 13:00 36.8 C 65 65 18 143/78 H 151/76 H 05/22/22 07:00 05/22/22 10:52 36.8 C 65 18 151/76 H 05/22/22 07:51 36.5 C 66 18 153/76 H 05/22/22 02:50 36.9 C 65 16 143/78 H Pulse Ox O2 Del Method 05/22/22 05:59 05/22/22 13:00 94 05/22/22 07:00 Room Air 01/17/23 10:52 94 Room Air 05/22/22 07:51 97 Room Air 05/22/22 02:50 95 Room Air Laboratory Results 05/22/22 05:56 05/22/22 05:56
--- NOTE | 2022-05-23 07:34 | Discharge Summary ---
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 States 4-5 episodes watery stools daily. Stool looks dark. Has visual impairment so unable to describe further. Has been using OTC anti-diarrhea medication (Imodium) for past 7 days without relief. Denies abdominal pain. Approximately 7 days ago had nausea and upset stomach "felt like rock in abdomen" after eating sandwich, soup and cookies. Vomited twice that night. No other vomiting since. He states he hasn't been eating much as causes more diar sho. He has been drinking Gatorade and water. He states drinking more water than he usually does but is unable to quantify amount. Last ate 2 days ago, had soup and sandwich. Feels wiped out. Has been having normal urine output in bag and denies noted hematuria. Denies ill contacts. Denies recent antibiotic use. Denies known fever/chills, diaphoresis, MILLER, dizziness, syncope, vision changes, neck pain, CP, SOB, orthopnea, palpitations, cough, sore throat, choking, otalgia, rhinorrhea, paresthesias, extremity edema, rashes. Admission Exam Per Admitting Provider Physical Exam: General: no distress, WDWN Head: normocephalic, atraumatic Eyes: conjunctiva non-injected, anicteric ENT: hard of hearing, normal inspection external ears, nose, mucous membranes dry Neck: supple, trachea midline, non-tender Lungs: clear, no respiratory distress, no wheezing/rhonchi/rales CV: RRR, no murmur, no pretibial edema Abd: Right abdomen with stoma with clear yellow urine in bag, +hyperactive BS, soft, non-tender Ext: no cyanosis, no calf tenderness Neuro: A&O x 3, no focal deficits noted, normal affect Skin: warm, dry Principal Diagnosis Diarrhea, JAROCHO, hypertension, UTI Discharge Exam Lying in bed without any acute distress Constitutional well developed, well nourished, + ill appearing and average body habitus Eyes PERRL, conjunctivae normal, anicteric sclerae ENMT external ear and nose normal, oropharynx normal Respiratory no respiratory distress Auscultation: lungs clear to auscultation bilaterally Cardiovascular Rate/Rhythm: regular rate and regular rhythm; not tachycardic Heart Sounds: normal S1 and normal S2; no murmur Extremities: no edema Gastrointestinal (Abdomen) Inspection/Auscultation: normal bowel sounds; abdomen not distended Percussion/Palpation: abdomen soft; abdomen nontender Neurologic normal touch/pain/proprioception and moves all extremities; no focal motor deficits Lymphatic no cervical or axillary lymphadenopathy Discharge Data Allergies Allergy/AdvReac Type Severity Reaction Status Date / Time meclizine Allergy Intermediate Swelling Verified 05/16/22 15:40 of tongue. 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 KUB: Suspect a mild ileus. No evidence for bowel obstruction. CT Abd/pelvis: Wall thickening of the second and third portions of the duodenum with mild adjacent stranding. This favors duodenitis. Pancreatitis could appear similar although is considered less likely. No extraluminal gas. Mildly distended fluid-filled colon. This may reflect a diarrheal state. No bowel obstruction. Stool studies unremarkable Blood cultures unremarkable Tolerating diet Appreciate GI input and recommendation-Will start Questran 4 g in 8 ounces of water daily Stool is formed from this morning Diarrhea is controlled and C. 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 Ns=a 133 today nephrology following IV fluid has been adjusted and the sodium level is 132 as of 05/18/2022 JAROCHO (acute kidney injury): JAROCHO on CKD III-creatinine was 2.51 on admission Received and receiving intravenous fluid Creatinine has been 1.74 as of 05/18/2022 Creatinine has been normalized to 1.3 as of 05/20/2022 Remains normal Dyslipidemia: on statin DVT px hep sub q Disposition Likely discharge in 2 to 3 days Total Time Total Time Spent Total Time Spent (In Minutes): 35 minutes Discharge Plan Discharge Items Patient Disposition: Home - Home Health Services Reason For Visit: JAROCHO Discharge Diagnosis: Diarrhea, JAROCHO, hypertension, UTI Condition on Discharge: Good Activity: Resume your previous activity Non-emergency contact: Primary Care Provider Call non-emergency contact if: you have any medication questions and your symptoms worsen Follow-up/Referrals: Demarco Guallpa MD [Primary Care Provider] - (Date & Time 05/25/2022 11:20 AM Provider Demarco Guallpa MD [facility] ) Diet: Heart Healthy Diet Texture: Easy to Chew Addtl Attending Provider Instructions: Please take precautions to avoid fall Please try to drink more fluid No new medications were given Keep appointments with your healthcare providers Pending Studies at Discharge: No Stand-Alone Forms: My [facility]CA[facility], Smoking Cessation Medications and DC Order Prescriptions: Continued sennosides [Natural Veg Laxative(sennosid)] 8.6 mg Tablet 8.6 mg PO BID atorvastatin 20 mg Tablet 20 mg PO PM clonazepam 1 mg Tablet 1 mg PO HS PRN (Reason: RESTLESSNESS) clonazepam 1 mg Tablet 0.5 mg PO BID PRN (Reason: Anxiety) acetaminophen [Tylenol Extra Strength] 500 mg Tablet 500 - 1,000 mg PO DIRECTED PRN (Reason: Pain) ferrous sulfate 325 mg (65 mg iron) Tablet 325 mg PO DAILY omeprazole 20 mg Capsule,Delayed Release(Dr/Ec) 20 mg PO DAILYBB lorazepam 1 mg Tablet 1 mg PO DIRECTED PRN (Reason: BEFORE TRAVELING) Rx Instructions: TAKE ONE TABLET BY MOUTH BEFORE TRAVELING-MAY REPEAT AFTER 30 MINUTES. atenolol 50 mg Tablet 50 mg PO BID cholecalciferol (vitamin D3) [D-Vi-Tish] 10 mcg/mL (400 unit/mL) Drops 400 unit PO DAILY Men's One Daily 400-20-300 mcg Tablet 1 tab PO DAILY gabapentin 300 mg capsule 300 mg PO TID MDD 4 CAPSULES Rx Instructions: TAKE ONE CAPSULE IN THE AM, ONE CAPSULE AT NOON, AND ONE CAPSULE AT BEDTIME. MAY INCREASE TO 2 CAPS AT BEDTIME FOR MAX OF 4 PER DAY, AFTER ONE WEEK. trazodone 50 mg tablet 50 mg PO HS amlodipine 5 mg tablet 5 mg PO DAILY oxycodone 5 mg tablet 5 mg PO Q6H PRN (Reason: pain) Qty: 12 0RF Rx Instructions: Initial Treatment Discharge Orders: Discharge Order (Routine); Ordered 05/22/22 Ordered By: Anabel Juarez Admission Data Admit Date/Time: 05/16/22 13:51 Attending Provider: Anabel Juarez Admit Provider: Maine Romo Primary Care Provider: Demarco Guallpa Other Providers: Maine Romo ; Efe Bustamante ; Clinton Holloway ; Corwin Santacruz ; Sera Sal ; Aziza Allen ; Brie De Leon ; Ambika Masters ; Ed Kwong ; Christopher Gomez ; Chet Dominguez ; Davion Quiroz ; Doug Cooper ; Angelic Jacobson ; Daily Obregon ; Kathy Araujo ; Ines Keys ; Rola Nguyễn ; Cristopher Michael ; Jaime Ramos ; Fatou Martinez ; Kim Chew Jr ; Nadeem Adams Other Interventions: Discharge Summary Assessment (RN) Last Done: 05/22/22 13:00
== END 2022-05-22 14:00 | disposition home health service (06) | DRG 683 ==
LOC: ED 10:16 → SUATTDRO 13:51 → EDINP 13:51 → 2N 16:19

== ENCOUNTER 2022-11-28 19:22 | Inpatient (IN) ==
[2022-11-28] MEDS ORDERED: SODIUM CHLORIDE 0.9% 1000ML 2,000 ML IV ONE (19:40)
[2022-11-28] MEDS ORDERED: CEFEPIME 2,000 MG/20 ML VIAL IV STA (20:01)
--- NOTE | 2022-11-28 20:10 | Emergency Department Note ---
Impression & Plan Sepsis, Anaplasmosis, Acute renal failure, Elevated troponin, Thrombocytopenia, Lymphopenia ED Provider Note NAME: EM CONCEPCION AGE: 81 SEX: M ARRIVES VIA: Ambulance INFORMANT: Patient ED PROVIDER(S): Jay Limon MD CHIEF COMPLAINT: weakness, confusion, falls PLAN: Disposition: Admit MEDICAL DECISION MAKING: The patient is an 81-year-old gentleman with a past medical history of hypertension, hyperlipidemia, anxiety, history of bladder cancer status post cystectomy and ileal conduit, history of tobacco use who presents to the emergency department via EMS and then accompanied by his son for evaluation of worsening generalized weakness with recurrent falls at home evolving since this past Saturday. The patient's son reports that he had been encouraging his father to come to the hospital or see his doctor but he was resistant to this. On Saturday he had spoken to his father and sounded like he was improving but when he saw him after work felt that he was worsening but still resistant to be seen. He then decided last night after seeing him that he needed to come to the hospital but it took until today to get him here after he would not agree and so EMS was called anyway. Upon my discussion with EMS on medical command the patient did not and continues to not have decision-making capacity due to confusion from baseline. He was given 2.5 mg of IV Versed to help facilitate his transfer. His heart rate was tachycardic in 100s but they were unable to obtain a blood pressure due to his combativeness but it was suspected that he did have hypotension. IV fluid hydrations were administered in route. The patient's son who is his POA does confirm that the patient is DNR/DNI. However they did agree with treatment otherwise. On arrival emergency department the patient is acutely ill-appearing with heart rate in the 100s and blood pressure 70s/50s. His skin demonstrates mottling throughout and is warm/clammy. He has no focal neurologic deficits and moves all extremities equally. He does have two subacute appearing linear laceration to occipital scalp without underlying hematoma related to a fall this past Saturday-Saturday that have closed. EKG without overt acute ischemia. CXR negative for acute cardiopulmonary process. WBC 11K nonspecific and mild lymphopenia of 1.04K is noted. Hemoglobin within normal limits. Platelets are nearly low at 86K. Creatinine is acutely elevated at 6.5 consistent with acute renal failure. Chemistry without significant metabolic acidosis with bicarbonate of 19. Anion gap is not significantly elevated and is 12. Lactic acid initially 2.1 and improved to 1.6 following IV fluid hydration. Electrolytes without significant abnormality. LFTs are newly elevated with total bili 1.3, direct bilirubin 0.7 and AST and ALT 124 and 134, respectively. Alk phos is also mildly elevated at 172. CPK within normal limits. High-sensitivity troponin 29, nonspecific. Lipase not elevated. Proc alcitonin is elevated at 6.3. UA obtained from urostomy bag following bag exchange demonstrates 3+ leuk esterase, WBCs and 4+ bacteria albeit with epithelial cells present. Medical alcohol was undetectable. 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 This is consistent with the patient's lymphopenia, thrombocytopenia and transaminitis. CT of the head was negative for ICH or ischemia. CT of the C-spine negative for traumatic injury. Of the abdomen pelvis demonstrates the patient's post cystectomy with ileal conduit and right lower quadrant ileostomy. Note is made of mild fullness of the left renal collecting system without obstructing stone and bilateral perinephric stranding greater on the left with no renal stones identified. However, no prior studies for comparison. Patient was treated empirically with IV cefepime and addition of IV doxycycline for anaplasmosis as well as empiric vancomycin. The patient was treated with 30+cc/kg for concern for sepsis with hypotension on presentation and improvement and stabilization subsequently. Case was discussed with Dr. Adams [facility], who will evaluate the patient for admission. Triage Nursing notes reviewed and agree them. Prior/outside medical records reviewed Vital Signs: reviewed Differential diagnosis: Infection, dehydration, metabolic abnormality, hypo/hyperglycemia, electrolyte disturbance, anemia, hypoxia, cardiac sources, intracerebral event, toxicologic, neurologic, as well as other pathologies. ER treatment provided: See below. Diagnostics interpreted by me: ECG: Sinus tachycardia, 109 bpm, first-degree block, no ectopy, there is ST abnormality inferiorly without overt ST elevation. QTc 404, QRS 76. Cardiac Monitoring: An order for continuous cardiac monitoring was placed and demonstrated sinus tachycardia, 109 bpm, no ectopy. Laboratory studies: See below Imaging studies: See below Consultation(s): Case was discussed with Dr. Adams [facility] hospitalist, who will evaluate the patient for admission. HPI: The patient is an 81-year-old gentleman with a past medical history of hy pertension, hyperlipidemia, anxiety, history of bladder cancer status post cystectomy and ileal conduit, history of tobacco use who presents to the emergency department via EMS and then accompanied by his son for evaluation of worsening generalized weakness with recurrent falls at home evolving since this past Saturday. The patient's son reports that he had been encouraging his father to come to the hospital or see his doctor but he was resistant to this. On Saturday he had spoken to his father and sounded like he was improving but when he saw him after work felt that he was worsening but still resistant to be seen. He then decided last night after seeing him that he needed to come to the [facility] but it took until today to get him here after he would not agree and so EMS was called anyway. Upon my discussion with EMS on medical command the patient did not and continues to not have decision-making capacity due to confusion from baseline. He was given 2.5 mg of IV Versed to help facilitate his transfer. His heart rate was tachycardic in 100s but they were unable to obtain a blood pressure due to his combativeness but it was suspected that he did have hypotension. IV fluid hydrations were administered in route. The patient's son who is his POA does confirm that the patient is DNR/DNI. However they did agree with treatment otherwise. ROS: See above HPI for pertinent positives & negatives. A total of 10 systems reviewed and were otherwise negative. VITALS:See Below PHYSICAL EXAMINATION: GENERAL: Awake, alert, ill-appearing, in no distress HENT: Normocephalic, atraumatic. Oropharynx with dry mucous membranes and otherwise unremarkable. EYES: Normal conjunctiva. Sclera non-icteric. NECK: Supple. No nuchal rigidity. FROM. No JVD. RESPIRATORY: Clear to auscultation. CARDIAC: Regular rate, normal rhythm. Extremities warm and well perfused. Pulses equal. ABDOMEN: Soft, non-distended. No tenderness to palpation. No rebound or guarding. No masses. RECTAL: Deferred. MUSCULOSKELETAL: Chest examination reveals no tenderness. The back is symmetrical on inspection without obvious abnormality. There is no CVA tenderness to palpation. No joint edema. LOWER EXTREMITIES: Calves are equal size bilaterally and non-tender. No edema. No discoloration. NEURO: Normal sensorium. No sensory or motor deficits noted. SKIN: No jaundice noted. Skin with diffuse mottling, warm and clammy. ED COURSE: Critical Care: I have personally spent greater than 75 minutes of critical care time in the direct management of this patient. This includes bedside care, interpretation of diagnostic studies, and testing, discussion with consultants, patient, and family members, and other required patient management activities. This 75 minutes is in excess of all separately billable procedures. Jay Limon MD Past Med/Surg History Medical History Anxiety CKD (chronic kidney disease), stage III Dyslipidemia History of carcinoma of bladder History of colon polyps Hypertension Macular degeneration Tinnitus Tobacco use Surgical History H/O total cystectomy with ileal conduit Status post lumbar surgery Family History Other Cancer Coronary heart disease Social History Smoking Status: Unknown if ever smoked Cigarettes Per Day: 1-2 per day up to 12 per day, intermittently; Do You Dip or Chew Tobacco: No; Hx Alcohol Use: Yes Alcohol type: beer Alcohol Intake Frequency: 2-3 x/Week Hx Substance Use: No Preferred Language: Estonian Communication Ability: Effective Health Science Instructor Required: No Beliefs That Will Affect Care: None marital status: / Current Living Situation: Alone Feels Safe at Home: Yes Assistive Devices: Cane, Glasses and Walker Allergies Allergies Allergy/AdvReac Type Severity Reaction Status Date / Time meclizine Allergy Severe THROAT/TONGUE Verified 11/28/22 22:16 SWELLS aspirin AdvReac Unknown History of Verified 11/28/22 22:16 ulcers Home Meds Home Medications Medication Instructions Recorded Confirmed acetaminophen 500 mg tablet 500 - 1,000 mg PO DIRECTED PRN 11/28/18 11/28/22 (Tylenol Extra Strength) Pain atenolol 50 mg tablet 100 mg PO DAILY 11/28/18 11/28/22 atorvastatin 20 mg tablet 20 mg PO PM 11/28/18 11/28/22 cholecalciferol (vitamin D3) 10 400 unit PO DAILY 11/28/18 11/28/22 mcg/mL (400 unit/mL) oral drops (D-Vi-Tish) clonazepam 1 mg tablet 0.5 mg PO BID PRN Anxiety 11/28/18 11/28/22 clonazepam 1 mg tablet 1 mg PO HS PRN RESTLESSNESS 11/28/18 11/28/22 ferrous sulfate 325 mg (65 mg 325 mg PO DAILY 11/28/18 11/28/22 iron) tablet lorazepam 1 mg tablet 1 mg PO DIRECTED PRN BEFORE 11/28/18 11/28/22 TRAVELING jmsztntv-tqdompup-yjllt acid 400 1 tab PO DAILY 11/28/18 11/28/22 mcg-vit K 20 mcg-lycop 300 mcg tablet (Men's One Daily) omeprazole 20 mg capsule,delayed 20 mg PO DAILYBB 11/28/18 11/28/22 release amlodipine 5 mg tablet 5 mg PO DAILY 05/16/22 11/28/22 trazodone 50 mg tablet 50 mg PO HS 05/16/22 11/28/22 Results & Data (ED) Vital Signs Vital Signs - 24 hr 11/28/22 19:28 11/28/22 19:28 11/28/22 19:54 Temperature 37.1 C Temperature Source Axillary Pulse Rate 108 H 106 H Pulse Rate from SpO2 Sensor Respiratory Rate 24 Blood Pressure 75/57 L Blood Pressure Mean 63 Pulse Oximetry 97 100 Oxygen Delivery Method Room Air Room Air Sepsis Recent Fever Within 48 Hours No Sepsis New/Unexplained Change in Mental Status Yes Sepsis Action Taken by Nursing No Action Required 11/28/22 19:40 11/28/22 19:28 11/28/22 19:30 Temperature 37.6 C H Temperature Source Rectal Pulse Rate 109 H 78 Pulse Rate from SpO2 Sensor Respiratory Rate 25 H 36 H Blood Pressure 75/57 L 113/89 Blood Pressure Mean 63 97 Pulse Oximetry Oxygen Delivery Method Sepsis Recent Fever Within 48 Hours Sepsis New/Unexplained Change in Mental Status Sepsis Action Taken by Nursing 11/28/22 19:40 11/28/22 20:15 11/28/22 20:36 Temperature Temperature Source Pulse Rate 106 H 97 H 124 H Pulse Rate from SpO2 Sensor 98 H 100 H Respiratory Rate 25 H 24 Blood Pressure 71/50 L 98/52 L 99/60 L Blood Pressure Mean 57 67 73 Pulse Oximetry 100 85 L Oxygen Delivery Method Sepsis Recent Fever Within 48 Hours Sepsis New/Unexplained Change in Mental Status Sepsis Action Taken by Nursing 11/28/22 20:40 11/28/22 20:45 11/28/22 20:50 Temperature Temperature Source Pulse Rate 97 H 99 H 102 H Pulse Rate from SpO2 Sensor 98 H 99 H 103 H Respiratory Rate 25 H 26 H 23 Blood Pressure 101/66 96/63 L 88/65 L Blood Pressure Mean 77 74 72 Pulse Oximetry 99 94 100 Oxygen Delivery Method Sepsis Recent Fever Within 48 Hours Sepsis New/Unexplained Change in Mental Status Sepsis Action Taken by Nursing 11/28/22 20:55 11/28/22 21:05 11/28/22 21:15 Temperature Temperature Source Pulse Rate 100 H 97 H 98 H Pulse Rate from SpO2 Sensor 100 H 96 H 98 H Respiratory Rate 23 16 20 Blood Pressure 91/64 L 99/60 L 96/65 L Blood Pressure Mean 73 73 75 Pulse Oximetry 100 100 100 Oxygen Delivery Method Sepsis Recent Fever Within 48 Hours Sepsis New/Unexplained Change in Mental Status Sepsis Action Taken by Nursing 11/28/22 21:20 11/28/22 21:25 11/28/22 21:30 Temperature Temperature Source Pulse Rate 97 H 98 H Pulse Rate from SpO2 Sensor 98 H 97 H Respiratory Rate 23 19 Blood Pressure 119/71 131/62 126/65 Blood Pressure Mean 87 71 85 Pulse Oximetry 100 100 Oxygen Delivery Method Sepsis Recent Fever Within 48 Hours Sepsis New/Unexplained Change in Mental Status Sepsis Action Taken by Nursing 11/28/22 21:35 11/28/22 21:41 11/28/22 21:45 Temperature Temperature Source Pulse Rate 99 H 101 H 98 H Pulse Rate from SpO2 Sensor 99 H 99 H 98 H Respiratory Rate 25 H 28 H 19 Blood Pressure 94/74 L 123/64 106/70 Blood Pressure Mean 80 83 82 Pulse Oximetry 100 100 100 Oxygen Delivery Method Sepsis Recent Fever Within 48 Hours Sepsis New/Unexplained Change in Mental Status Sepsis Action Taken by Nursing 11/28/22 21:50 11/28/22 21:56 11/28/22 22:00 Temperature Temperature Source Pulse Rate 101 H 97 H 98 H Pulse Rate from SpO2 Sensor 97 H 97 H 96 H Respiratory Rate 22 23 22 Blood Pressure 127/71 140/97 115/74 Blood Pressure Mean 89 111 87 Pulse Oximetry 99 100 100 Oxygen Delivery Method Sepsis Recent Fever Within 48 Hours Sepsis New/Unexplained Change in Mental Status Sepsis Action Taken by Nursing 11/28/22 22:05 11/28/22 22:15 11/28/22 22:20 Temperature Temperature Source Pulse Rate 105 H 98 H 96 H Pulse Rate from SpO2 Sensor 97 H 92 H Respiratory Rate 25 H 23 21 Blood Pressure 120/72 119/72 104/79 Blood Pressure Mean 88 87 87 Pulse Oximetry 100 100 Oxygen Delivery Method Sepsis Recent Fever Within 48 Hours Sepsis New/Unexplained Change in Mental Status Sepsis Action Taken by Nursing 11/28/22 22:25 11/28/22 22:30 11/28/22 22:35 Temperature Temperature Source Pulse Rate 97 H 108 H 98 H Pulse Rate from SpO2 Sensor 98 H 99 H 99 H Respiratory Rate 22 22 21 Blood Pressure 115/71 106/65 116/80 Blood Pressure Mean 85 78 92 Pulse Oximetry 100 100 100 Oxygen Delivery Method Sepsis Recent Fever Within 48 Hours Sepsis New/Unexplained Change in Mental Status Sepsis Action Taken by Nursing 11/28/22 22:41 11/28/22 22:50 11/28/22 23:02 Temperature Temperature Source Pulse Rate 101 H 101 H Pulse Rate from SpO2 Sensor 100 H 101 H 101 H Respiratory Rate 24 26 H 21 Blood Pressure 114/65 94/55 L 84/64 L Blood Pressure Mean 81 68 70 Pulse Oximetry 97 92 93 Oxygen Delivery Method Sepsis Recent Fever Within 48 Hours Sepsis New/Unexplained Change in Mental Status Sepsis Action Taken by Nursing 11/28/22 23:05 11/28/22 23:10 11/28/22 23:15 Temperature Temperature Source Pulse Rate 99 H 102 H 103 H Pulse Rate from SpO2 Sensor 99 H 103 H 99 H Respiratory Rate 19 21 18 Blood Pressure 87/56 L 100/72 97/60 L Blood Pressure Mean 66 81 72 Pulse Oximetry 95 95 95 Oxygen Delivery Method Sepsis Recent Fever Within 48 Hours Sepsis New/Unexplained Change in Mental Status Sepsis Action Taken by Nursing 11/28/22 23:22 Temperature Temperature Source Pulse Rate 99 H Pulse Rate from SpO2 Sensor 100 H Respiratory Rate 19 Blood Pressure 89/71 L Blood Pressure Mean 77 Pulse Oximetry 95 Oxygen Delivery Method Sepsis Recent Fever Within 48 Hours Sepsis New/Unexplained Change in Mental Status Sepsis Action Taken by Nursing Laboratory Data Attestation: I reviewed the patient's lab results. 11/28/22 19:39 11/28/22 19:39 Lab Results 11/28/22 11/28/22 11/28/22 Range/Units 19:39 19:39 19:39 WBC 11.18 H (4.8-10.8) K/ul RBC 4.48 L (4.70-6.10) M/uL Hgb 14.8 (14.0-18.0) g/dl POC Hgb (14.0-18.0) g/dl Hct 40.6 L (42.0-52.0) % POC Hct (42-52) % MCV 90.6 (80.0-100.0) fL MCH 33.0 (25.0-34.0) pg MCHC 36.5 H (32.0-36.0) g/dL RDW Std Deviation 44.7 (36.4-46.3) fL RDW Coeff of Hemanth 13.4 (11.5-14.5) % Plt Count 86 L (130-400) K/uL MPV 13.0 H (9.4-12.4) fL Immature Gran % (Auto) 0.8 % Neut % (Auto) 86.5 % Lymph % (Auto) 9.3 % [place] % (Auto) 2.9 % Eos % (Auto) 0.1 % Baso % (Auto) 0.4 % Neut # (Auto) 9.68 H (1.40-6.50) K/uL Lymph # (Auto) 1.04 L (1.2-3.4) K/uL [place] # (Auto) 0.32 (0.11-0.59) K/uL Eos # (Auto) 0.01 (0-0.50) K/uL Baso # (Auto) 0.04 (0-0.2) K/uL Immature Gran # (Auto) 0.09 (0.01-0.20) K/uL Platelet Estimate Decreased L (Normal) Polychromasia 1+ Echinocytes 1+ VBG pH (7.36-7.41) VBG pCO2 (38-50) mmHg VBG pO2 mmHg VBG HCO3 mmol/L VBG O2 Saturation % VBG Base Excess mEq/L POC Sodium (135-144) mmol/L Sodium 132 L (136-145) mmol/L POC Potassium (3.3-5.0) mmol/L Potassium 4.9 (3.5-5.1) mmol/L POC Chloride (101-112) mmol/L Chloride 101 (98-107) mmol/L Carbon Dioxide 19 L (21-32) mmol/L POC Total CO2 (24-31) mmol/L Anion Gap 12 H (3-11) POC Anion Gap (16-25) mmol/L POC BUN (7-18) mg/dl BUN 162 H (6-23) mg/dl Creatinine 6.58 H* (0.6-1.4) mg/dl POC Creatinine (0.6-1.3) mg/dl Est Cr Clr Drug Dosing Not Reportable Est GFR ( Amer) 8.4 ml/min Est GFR (Non-Af Amer) 7.3 ml/min BUN/Creatinine Ratio 24.6 H (10-20) Glucose 120 H (70-99(Fasting)) mg/dl POC Glucose (other) (70-99) mg/dl Lactate (0.4-2.0) mmol/L Calcium 8.4 L (8.6-10.3) mg/dl POC Ioniz Calcium Rush (1.12-1.32) mmol/l Phosphorus 3.9 (2.5-4.9) mg/dl Magnesium 2.3 (1.7-2.4) mg/dl Total Bilirubin 1.3 H (0.2-1.0) mg/dl Direct Bilirubin 0.7 H (0-0.2) mg/dl AST 124 H (13-39) U/L ALT 134 H (7-52) U/L Alkaline Phosphatase 172 H (34-104) U/L Total Creatine Kinase 175 (30-223) U/L Troponin I High Sens 29.6 H (0-20) pg/ml Total Protein 5.3 L (6.0-8.3) gm/dl Albumin 2.6 L (3.4-5.0) gm/dl Lipase 38 (11-82) U/L Procalcitonin 6.35 H (0-0.5) ng/ml Ethyl Alcohol mg/dL (<10.0) mg/dl Anaplasma Smear See Comment A Babesia Smear See Comment Lyme Disease IgG Ab (Negative) Lyme Disease IgM Ab (Negative) 11/28/22 11/28/22 11/28/22 Range/Units 19:39 19:39 20:03 WBC (4.8-10.8) K/ul RBC (4.70-6.10) M/uL Hgb (14.0-18.0) g/dl POC Hgb (14.0-18.0) g/dl Hct (42.0-52.0) % POC Hct (42-52) % MCV (80.0-100.0) fL MCH (25.0-34.0) pg MCHC (32.0-36.0) g/dL RDW Std Deviation (36.4-46.3) fL RDW Coeff of Hemanth (11.5-14.5) % Plt Count (130-400) K/uL MPV (9.4-12.4) fL Immature Gran % (Auto) % Neut % (Auto) % Lymph % (Auto) % [place] % (Auto) % Eos % (Auto) % Baso % (Auto) % Neut # (Auto) (1.40-6.50) K/uL Lymph # (Auto) (1.2-3.4) K/uL [place] # (Auto) (0.11-0.59) K/uL Eos # (Auto) (0-0.50) K/uL Baso # (Auto) (0-0.2) K/uL Immature Gran # (Auto) (0.01-0.20) K/uL Platelet Estimate (Normal) Polychromasia Echinocytes VBG pH (7.36-7.41) VBG pCO2 (38-50) mmHg VBG pO2 mmHg VBG HCO3 mmol/L VBG O2 Saturation % VBG Base Excess mEq/L POC Sodium (135-144) mmol/L Sodium (136-145) mmol/L POC Potassium (3.3-5.0) mmol/L Potassium (3.5-5.1) mmol/L POC Chloride (101-112) mmol/L Chloride (98-107) mmol/L Carbon Dioxide (21-32) mmol/L POC Total CO2 (24-31) mmol/L Anion Gap (3-11) POC Anion Gap (16-25) mmol/L POC BUN (7-18) mg/dl BUN (6-23) mg/dl Creatinine (0.6-1.4) mg/dl POC Creatinine (0.6-1.3) mg/dl Est Cr Clr Drug Dosing Est GFR ( Amer) ml/min Est GFR (Non-Af Amer) ml/min BUN/Creatinine Ratio (10-20) Glucose (70-99(Fasting)) mg/dl POC Glucose (other) (70-99) mg/dl Lactate 2.1 H* (0.4-2.0) mmol/L Calcium (8.6-10.3) mg/dl POC Ioniz Calcium Rush (1.12-1.32) mmol/l Phosphorus (2.5-4.9) mg/dl Magnesium (1.7-2.4) mg/dl Total Bilirubin (0.2-1.0) mg/dl Direct Bilirubin (0-0.2) mg/dl AST (13-39) U/L ALT (7-52) U/L Alkaline Phosphatase (34-104) U/L Total Creatine Kinase (30-223) U/L Troponin I High Sens (0-20) pg/ml Total Protein (6.0-8.3) gm/dl Albumin (3.4-5.0) gm/dl Lipase (11-82) U/L Procalcitonin (0-0.5) ng/ml Ethyl Alcohol mg/dL (<10.0) mg/dl Anaplasma Smear Cancelled Babesia Smear Cancelled Lyme Disease IgG Ab Negative (Negative) Lyme Disease IgM Ab Negative (Negative) 11/28/22 11/28/22 11/28/22 Range/Units 20:03 20:05 20:19 WBC (4.8-10.8) K/ul RBC (4.70-6.10) M/uL Hgb (14.0-18.0) g/dl POC Hgb 15.6 (14.0-18.0) g/dl Hct (42.0-52.0) % POC Hct 46 (42-52) % MCV (80.0-100.0) fL MCH (25.0-34.0) pg MCHC (32.0-36.0) g/dL RDW Std Deviation (36.4-46.3) fL RDW Coeff of Hemanth (11.5-14.5) % Plt Count (130-400) K/uL MPV (9.4-12.4) fL Immature Gran % (Auto) % Neut % (Auto) % Lymph % (Auto) % [place] % (Auto) % Eos % (Auto) % Baso % (Auto) % Neut # (Auto) (1.40-6.50) K/uL Lymph # (Auto) (1.2-3.4) K/uL [place] # (Auto) (0.11-0.59) K/uL Eos # (Auto) (0-0.50) K/uL Baso # (Auto) (0-0.2) K/uL Immature Gran # (Auto) (0.01-0.20) K/uL Platelet Estimate (Normal) Polychromasia Echinocytes VBG pH 7.35 L (7.36-7.41) VBG pCO2 35 L (38-50) mmHg VBG pO2 15 mmHg VBG HCO3 19 mmol/L VBG O2 Saturation < 60.0 % VBG Base Excess -5.6 mEq/L POC Sodium 132 L (135-144) mmol/L Sodium (136-145) mmol/L POC Potassium 4.8 (3.3-5.0) mmol/L Potassium (3.5-5.1) mmol/L POC Chloride 102 (101-112) mmol/L Chloride (98-107) mmol/L Carbon Dioxide (21-32) mmol/L POC Total CO2 19 L (24-31) mmol/L Anion Gap (3-11) POC Anion Gap 16.0 (16-25) mmol/L POC BUN > 140 H* (7-18) mg/dl BUN (6-23) mg/dl Creatinine (0.6-1.4) mg/dl POC Creatinine 7.8 H* (0.6-1.3) mg/dl Est Cr Clr Drug Dosing Est GFR ( Amer) ml/min Est GFR (Non-Af Amer) ml/min BUN/Creatinine Ratio (10-20) Glucose (70-99(Fasting)) mg/dl POC Glucose (other) 127 H (70-99) mg/dl Lactate (0.4-2.0) mmol/L Calcium (8.6-10.3) mg/dl POC Ioniz Calcium Rush 1.17 (1.12-1.32) mmol/l Phosphorus (2.5-4.9) mg/dl Magnesium (1.7-2.4) mg/dl Total Bilirubin (0.2-1.0) mg/dl Direct Bilirubin (0-0.2) mg/dl AST (13-39) U/L ALT (7-52) U/L Alkaline Phosphatase (34-104) U/L Total Creatine Kinase (30-223) U/L Troponin I High Sens (0-20) pg/ml Total Protein (6.0-8.3) gm/dl Albumin (3.4-5.0) gm/dl Lipase (11-82) U/L Procalcitonin (0-0.5) ng/ml Ethyl Alcohol mg/dL < 10.0 (<10.0) mg/dl Anaplasma Smear Babesia Smear Lyme Disease IgG Ab (Negative) Lyme Disease IgM Ab (Negative) 11/28/22 11/28/22 Range/Units 23:02 23:02 WBC (4.8-10.8) K/ul RBC (4.70-6.10) M/uL Hgb (14.0-18.0) g/dl POC Hgb (14.0-18.0) g/dl Hct (42.0-52.0) % POC Hct (42-52) % MCV (80.0-100.0) fL MCH (25.0-34.0) pg MCHC (32.0-36.0) g/dL RDW Std Deviation (36.4-46.3) fL RDW Coeff of Hemanth (11.5-14.5) % Plt Count (130-400) K/uL MPV (9.4-12.4) fL Immature Gran % (Auto) % Neut % (Auto) % Lymph % (Auto) % [place] % (Auto) % Eos % (Auto) % Baso % (Auto) % Neut # (Auto) (1.40-6.50) K/uL Lymph # (Auto) (1.2-3.4) K/uL [place] # (Auto) (0.11-0.59) K/uL Eos # (Auto) (0-0.50) K/uL Baso # (Auto) (0-0.2) K/uL Immature Gran # (Auto) (0.01-0.20) K/uL Platelet Estimate (Normal) Polychromasia Echinocytes VBG pH (7.36-7.41) VBG pCO2 (38-50) mmHg VBG pO2 mmHg VBG HCO3 mmol/L VBG O2 Saturation % VBG Base Excess mEq/L POC Sodium (135-144) mmol/L Sodium (136-145) mmol/L POC Potassium (3.3-5.0) mmol/L Potassium (3.5-5.1) mmol/L POC Chloride (101-112) mmol/L Chloride (98-107) mmol/L Carbon Dioxide (21-32) mmol/L POC Total CO2 (24-31) mmol/L Anion Gap (3-11) POC Anion Gap (16-25) mmol/L POC BUN (7-18) mg/dl BUN (6-23) mg/dl Creatinine (0.6-1.4) mg/dl POC Creatinine (0.6-1.3) mg/dl Est Cr Clr Drug Dosing Est GFR ( Amer) ml/min Est GFR (Non-Af Amer) ml/min BUN/Creatinine Ratio (10-20) Glucose (70-99(Fasting)) mg/dl POC Glucose (other) (70-99) mg/dl Lactate 1.6 (0.4-2.0) mmol/L Calcium (8.6-10.3) mg/dl POC Ioniz Calcium Rush (1.12-1.32) mmol/l Phosphorus (2.5-4.9) mg/dl Magnesium (1.7-2.4) mg/dl Total Bilirubin (0.2-1.0) mg/dl Direct Bilirubin (0-0.2) mg/dl AST (13-39) U/L ALT (7-52) U/L Alkaline Phosphatase (34-104) U/L Total Creatine Kinase (30-223) U/L Troponin I High Sens 24.0 H (0-20) pg/ml Total Protein (6.0-8.3) gm/dl Albumin (3.4-5.0) gm/dl Lipase (11-82) U/L Procalcitonin (0-0.5) ng/ml Ethyl Alcohol mg/dL (<10.0) mg/dl Anaplasma Smear Babesia Smear Lyme Disease IgG Ab (Negative) Lyme Disease IgM Ab (Negative) Administered Medications Sodium Chloride (Nss) 500 mls @ 500 mls/hr IV .Q1H STA Stop: 11/29/22 01:10 Last Admin: 11/29/22 00:33 Dose: 500 mls/hr Documented By: SEAN Discontinued Medications Sodium Chloride (Nss 1000ml) 2,000 mls @ 999 mls/hr IV .Q2H1M ONE Stop: 11/28/22 21:40 Last Infusion: 11/28/22 21:43 Dose: 0 mls/hr Documented By: Admin: 11/28/22 20:25 Dose: 999 mls/hr Documented By: SEAN Cefepime HCl (Maxipime) 2,000 mg in 20 mls @ 5 mls/min IV NOW STA; Protocol Stop: 11/28/22 20:04 Last Admin: 11/28/22 21:43 Dose: 5 mls/min Documented By: SEAN Thiamine HCl 200 mg/ Sodium (Chloride) 52 mls @ 210 mls/hr IV NOW STA Stop: 11/28/22 20:26 Last Infusion: 11/28/22 21:40 Dose: 0 mls/hr Documented By: Admin: 11/28/22 20:39 Dose: 210 mls/hr Documented By: NETTE Doxycycline Hyclate 100 mg/ (Dextrose) 110 mls @ 50 mls/hr IV NOW STA Stop: 11/28/22 23:48 Last Infusion: 11/29/22 00:27 Dose: 0 mls/hr Documented By: Admin: 11/28/22 22:14 Dose: 50 mls/hr Documented By: SEAN Sodium Chloride (Nss 1000ml) 1,000 mls @ 999 mls/hr IV .Q1H1M ONE Stop: 11/28/22 22:40 Last Infusion: 11/28/22 22:50 Dose: 0 mls/hr Documented By: Admin: 11/28/22 21:47 Dose: 999 mls/hr Documented By: SEAN Acetaminophen (Ofirmev) 1,000 mg in 100 mls @ 400 mls/hr IV NOW STA Stop: 11/28/22 21:54 Last Infusion: 11/28/22 22:14 Dose: 0 mls/hr Documented By: Admin: 11/28/22 21:58 Dose: 400 mls/hr Documented By: SEAN Imaging Data Radiologist's Impression: Cervical Spine CT 11/28/22 20:00 Exam(s): CT C SPINE EXAM: CT Cervical Spine Without Intravenous Contrast CLINICAL HISTORY: Reason for exam: sepsis, hypotension. TECHNIQUE: Axial computed tomography images of the cervical spine without intravenous contrast. CTDI is 25.6 mGy and DLP is 553.84 mGy-cm. Automated exposure control was utilized for the study. A dose lowering technique was utilized adhering to the principles of ALARA. COMPARISON: No relevant prior studies available. FINDINGS: The vertebral body heights are maintained. The craniocervical junction is intact. The atlanto-dens interval is maintained. The dens is intact. There is no spondylolisthesis. Multilevel cervical spondylosis and degenerative disc disease. Straightening of the cervical lordosis. The unenhanced neck soft tissues are grossly unremarkable. The visualized lung apices are grossly clear. IMPRESSION: No acute fracture or subluxation of the cervical spine. Electronically signed by: James Sloan MD 11/28/22 20:[address] 11/28/22 20:00 Exam(s): CT HEAD Without Contrast EXAM: CT Head Without Intravenous Contrast CLINICAL HISTORY: Reason for exam: sepsis, hypotension. TECHNIQUE: Axial computed tomography images of the head/brain without intravenous contrast. CTDI is 36.43 mGy and DLP is 624.41 mGy-cm. Automated exposure control was utilized for the study. A dose lowering technique was utilized adhering to the principles of ALARA. COMPARISON: No relevant prior studies available. FINDINGS: No acute intracranial hemorrhage. No midline shift or mass effect. The territorial posadas-white matter differentiation is maintained throughout. Age-related cerebral volume loss. Periventricular and subcortical white matter hypoattenuation, consistent with chronic microangiopathy. The visualized orbits appear grossly unremarkable. The calvarium is intact. The visualized paranasal sinuses and mastoid air cells are grossly clear. IMPRESSION: No acute intracranial hemorrhage, midline shift, or mass effect. Electronically signed by: James Sloan MD 11/28/22 20:51 PM Abdomen/Pelvis CT 11/28/22 20:09 Exam(s): CT ABDOMEN + PELVIS Without Contrast EXAM: CT Abdomen and Pelvis Without Intravenous Contrast CLINICAL HISTORY: Reason for exam: sepsis, hypotension. TECHNIQUE: Axial computed tomography images of the abdomen and pelvis without intravenous contrast. CTDI is 25.87 mGy and DLP is 1417.36 mGy-cm. Automated exposure control was utilized for the study. A dose lowering technique was utilized adhering to the principles of ALARA. COMPARISON: No relevant prior studies available. FINDINGS: Lung bases: Atelectasis at the lung bases. ABDOMEN: Liver: Unremarkable. Gallbladder and bile ducts: Unremarkable. No calcified stones. No ductal dilation. Pancreas: Unremarkable. No ductal dilation. Spleen: Unremarkable. No splenomegaly. Adrenals: Unremarkable. No mass. Kidneys and ureters: See below. Stomach and bowel: Unremarkable. No acute diverticulitis. No small bowel obstruction. No free intraperitoneal air. PELVIS: Appendix: Normal appendix. 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 Mild fullness of the LEFT renal collecting system, without obstructing stone. Bilateral perinephric stranding, greater on the LEFT. No renal stones. Reproductive: Unremarkable as visualized. ABDOMEN and PELVIS: Intraperitoneal space: Unremarkable. No free air. No significant fluid collection. Bones/joints: Degenerative changes of the spine. No acute fracture. No dislocation. Soft tissues: Unremarkable. Vasculature: Atherosclerotic changes of the aorta. No abdominal aortic aneurysm. Lymph nodes: Unremarkable. No enlarged lymph nodes. IMPRESSION: 1. No acute diverticulitis. No small bowel obstruction. No free intraperitoneal air. 2. Normal appendix. 3. 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 Mild fullness of the LEFT renal collecting system, without obstructing stone. Bilateral perinephric stranding, greater on the LEFT. No renal stones. Electronically signed by: James Sloan MD 11/28/22 21:[address] 11/28/22 20:09 Exam(s): CT CHEST Without Contrast EXAM: CT Chest Without Intravenous Contrast CLINICAL HISTORY: Reason for exam: sepsis, hypotension. TECHNIQUE: Axial computed tomography images of the chest without intravenous contrast. CTDI is 25.32 mGy and DLP is 918.95 mGy-cm. Automated exposure control was utilized for the study. A dose lowering technique was utilized adhering to the principles of ALARA. COMPARISON: No relevant prior studies available. FINDINGS: Lungs: Dependent atelectasis. Pleural space: Unremarkable. No focal infiltrate, pleural effusion, or pneumothorax. Heart: Unremarkable. No cardiomegaly. No significant pericardial effusion. No significant coronary artery calcifications. Bones/joints: Degenerative changes of the spine. No acute fracture. No dislocation. Soft tissues: Unremarkable. Vasculature: Atherosclerotic changes of the aorta, with coronary involvement. No thoracic aortic aneurysm. Lymph nodes: Unremarkable. No enlarged lymph nodes. IMPRESSION: No focal infiltrate, pleural effusion, or pneumothorax. Electronically signed by: James Sloan MD 11/28/22 20:59 PM Discharge Plan Visit Data Chief Complaint: Fall Stated Complaint: FALL, AMS ED Provider: Jay Limon Discharge Problem: Sepsis, Anaplasmosis, Acute renal failure, Elevated troponin, Thrombocytopenia, Lymphopenia Patient Disposition: Admitted As Inpatient Discharge Instructions Interventions: ED Discharge Assessment Last Done: 11/29/22 00:24 Sepsis Qualifiers: Sepsis type: sepsis due to unspecified organism Sepsis acute organ dysfunction status: with acute organ dysfunction Severe sepsis acute organ dysfunction type: acute renal failure Acute renal failure type: unspecified Severe sepsis shock status: with septic shock Qualified Code(s): A41.9 - Sepsis, unspecified organism
[2022-11-28] MEDS ORDERED: THIAMINE HCL 200 MG in SODIUM CHLORIDE 0.9% 50 ML IV STA (20:12)
[2022-11-28 20:16] LABS: Albumin Level 2.6 gm/dl (3.4-5.0); Anion Gap 12 (3-11); Bilirubin Direct 0.7 mg/dl (0-0.2); Bilirubin,Total 1.3 mg/dl (0.2-1.0); Calcium 8.4 mg/dl (8.6-10.3); Carbon Dioxide 19 mmol/L (21-32); Chloride 101 mmol/L (98-107); Magnesium 2.3 mg/dl (1.7-2.4); Potassium 4.9 mmol/L (3.5-5.1); Sodium 132 mmol/L (136-145)
[2022-11-28 20:16] LABS: Base Excess VBG -5.6 mEq/L; HCO3 VBG 19 mmol/L; Oxygen Saturation VBG < 60.0 %; PCO2 VBG 35 mmHg (38-50); PO2 VBG 15 mmHg; pH VBG 7.35 (7.36-7.41)
[2022-11-28 20:22] LABS: iSTAT Blood Urea Nitrogen > 140 mg/dl (7-18); iSTAT Carbon Dioxide 19 mmol/L (24-31); iSTAT Chloride 102 mmol/L (101-112); iSTAT Creatinine 7.8 mg/dl (0.6-1.3); iSTAT Glucose 127 mg/dl (70-99); iSTAT Hematocrit 46 % (42-52); iSTAT Hemoglobin 15.6 g/dl (14.0-18.0); iSTAT Ionized Calcium 1.17 mmol/l (1.12-1.32); iSTAT Potassium 4.8 mmol/L (3.3-5.0); iSTAT Sodium 132 mmol/L (135-144)
[2022-11-28 20:27] LABS: Glucose 120 mg/dl (70-99(Fasting))
[2022-11-28 20:28] LABS: Alanine Aminotransferase 134 U/L (7-52); Alkaline Phosphatase 172 U/L (34-104); Aspartate Aminotransferase 124 U/L (13-39); Creatine Kinase 175 U/L (30-223); Est GFR (African American) 8.4 ml/min; Est GFR (Non-African American) 7.3 ml/min; Lipase 38 U/L (11-82); Phosphorus 3.9 mg/dl (2.5-4.9); Total Protein 5.3 gm/dl (6.0-8.3)
[2022-11-28 20:47] LABS: BUN Creatinine Ratio 24.6 (10-20); Blood Urea Nitrogen 162 mg/dl (6-23)
--- NOTE | 2022-11-28 20:52 | CT Scan Report ---
Exam(s): CT HEAD Without Contrast EXAM: CT Head Without Intravenous Contrast CLINICAL HISTORY: Reason for exam: sepsis, hypotension. TECHNIQUE: Axial computed tomography images of the head/brain without intravenous contrast. CTDI is 36.43 mGy and DLP is 624.41 mGy-cm. Automated exposure control was utilized for the study. A dose lowering technique was utilized adhering to the principles of ALARA. COMPARISON: No relevant prior studies available. FINDINGS: No acute intracranial hemorrhage. No midline shift or mass effect. The territorial posadas-white matter differentiation is maintained throughout. Age-related cerebral volume loss. Periventricular and subcortical white matter hypoattenuation, consistent with chronic microangiopathy. The visualized orbits appear grossly unremarkable. The calvarium is intact. The visualized paranasal sinuses and mastoid air cells are grossly clear. IMPRESSION: No acute intracranial hemorrhage, midline shift, or mass effect. Electronically signed by: James Sloan MD 11/28/22 20:51 PM
--- NOTE | 2022-11-28 20:55 | CT Scan Report ---
Exam(s): CT C SPINE EXAM: CT Cervical Spine Without Intravenous Contrast CLINICAL HISTORY: Reason for exam: sepsis, hypotension. TECHNIQUE: Axial computed tomography images of the cervical spine without intravenous contrast. CTDI is 25.6 mGy and DLP is 553.84 mGy-cm. Automated exposure control was utilized for the study. A dose lowering technique was utilized adhering to the principles of ALARA. COMPARISON: No relevant prior studies available. FINDINGS: The vertebral body heights are maintained. The craniocervical junction is intact. The atlanto-dens interval is maintained. The dens is intact. There is no spondylolisthesis. Multilevel cervical spondylosis and degenerative disc disease. Straightening of the cervical lordosis. The unenhanced neck soft tissues are grossly unremarkable. The visualized lung apices are grossly clear. IMPRESSION: No acute fracture or subluxation of the cervical spine. Electronically signed by: James Sloan MD 11/28/22 20:54 PM
--- NOTE | 2022-11-28 20:59 | CT Scan Report ---
Exam(s): CT CHEST Without Contrast EXAM: CT Chest Without Intravenous Contrast CLINICAL HISTORY: Reason for exam: sepsis, hypotension. TECHNIQUE: Axial computed tomography images of the chest without intravenous contrast. CTDI is 25.32 mGy and DLP is 918.95 mGy-cm. Automated exposure control was utilized for the study. A dose lowering technique was utilized adhering to the principles of ALARA. COMPARISON: No relevant prior studies available. FINDINGS: Lungs: Dependent atelectasis. Pleural space: Unremarkable. No focal infiltrate, pleural effusion, or pneumothorax. Heart: Unremarkable. No cardiomegaly. No significant pericardial effusion. No significant coronary artery calcifications. Bones/joints: Degenerative changes of the spine. No acute fracture. No dislocation. Soft tissues: Unremarkable. Vasculature: Atherosclerotic changes of the aorta, with coronary involvement. No thoracic aortic aneurysm. Lymph nodes: Unremarkable. No enlarged lymph nodes. IMPRESSION: No focal infiltrate, pleural effusion, or pneumothorax. Electronically signed by: James Sloan MD 11/28/22 20:59 PM
[2022-11-28 21:07] LABS: Troponin I High Sensitivity 29.6 pg/ml (0-20)
--- NOTE | 2022-11-28 21:07 | CT Scan Report ---
Exam(s): CT ABDOMEN + PELVIS Without Contrast EXAM: CT Abdomen and Pelvis Without Intravenous Contrast CLINICAL HISTORY: Reason for exam: sepsis, hypotension. TECHNIQUE: Axial computed tomography images of the abdomen and pelvis without intravenous contrast. CTDI is 25.87 mGy and DLP is 1417.36 mGy-cm. Automated exposure control was utilized for the study. A dose lowering technique was utilized adhering to the principles of ALARA. COMPARISON: No relevant prior studies available. FINDINGS: Lung bases: Atelectasis at the lung bases. ABDOMEN: Liver: Unremarkable. Gallbladder and bile ducts: Unremarkable. No calcified stones. No ductal dilation. Pancreas: Unremarkable. No ductal dilation. Spleen: Unremarkable. No splenomegaly. Adrenals: Unremarkable. No mass. Kidneys and ureters: See below. Stomach and bowel: Unremarkable. No acute diverticulitis. No small bowel obstruction. No free intraperitoneal air. PELVIS: Appendix: Normal appendix. 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 Mild fullness of the LEFT renal collecting system, without obstructing stone. Bilateral perinephric stranding, greater on the LEFT. No renal stones. Reproductive: Unremarkable as visualized. ABDOMEN and PELVIS: Intraperitoneal space: Unremarkable. No free air. No significant fluid collection. Bones/joints: Degenerative changes of the spine. No acute fracture. No dislocation. Soft tissues: Unremarkable. Vasculature: Atherosclerotic changes of the aorta. No abdominal aortic aneurysm. Lymph nodes: Unremarkable. No enlarged lymph nodes. IMPRESSION: 1. No acute diverticulitis. No small bowel obstruction. No free intraperitoneal air. 2. Normal appendix. 3. 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 Mild fullness of the LEFT renal collecting system, without obstructing stone. Bilateral perinephric stranding, greater on the LEFT. No renal stones. Electronically signed by: James Sloan MD 11/28/22 21:06 PM
[2022-11-28 21:12] LABS: Hematocrit (blood only) 40.6 % (42.0-52.0); Hemoglobin 14.8 g/dl (14.0-18.0); Mean Corpuscular Hgb Conc 36.5 g/dL (32.0-36.0); Mean Corpuscular Volume 90.6 fL (80.0-100.0); Platelet Count 86 K/uL (130-400); RDW Coefficient of Variation 13.4 % (11.5-14.5); RDW Standard Deviation 44.7 fL (36.4-46.3); Red Blood Count 4.48 M/uL (4.70-6.10); White Blood Count 11.18 K/ul (4.8-10.8)
[2022-11-28] MEDS ORDERED: DOXYCYCLINE HYCLATE 100 MG in DEXTROSE 5% 100 ML IV STA (21:37)
[2022-11-28 21:38] LABS: Appearance Urine Turbid (Clear); Bacteria Urine Automated 4+ (Negative); Bilirubin Urine Negative (Negative); Blood Urine 3+ (Negative); Color Urine Dark Yellow; Epithelial Cell Urine Auto >30 /lpf (0-5); Glucose Urine UA Negative (Negative); Ketones Urine Trace (Negative); Leukocyte Esterase Urine 3+ (Negative); Nitrite Urine Negative (Negative); Protein Urine 1+ (Negative); Specific Gravity Urine 1.015 (1.000-1.030); Urobilinogen Urine Negative (Negative); WBC Urine Automated >30 /hpf (0-5)
[2022-11-28] MEDS ORDERED: SODIUM CHLORIDE 0.9% 1000ML 1,000 ML IV ONE (21:40)
[2022-11-28] MEDS ORDERED: ACETAMINOPHEN 1,000 MG/100 ML VIAL IV STA (21:40)
[2022-11-28] MEDS ORDERED: VANCOMYCIN CONSULT ACTIVE PRN (22:05)
[2022-11-28] MEDS ORDERED: VANCOMYCIN HCL 2,000 MG in SODIUM CHLORIDE 0.9% 500 ML IV ONE (22:05)
[2022-11-28 22:42] LABS: Lyme Ab IgG w/WB Rflx Negative (Negative); Lyme Ab IgM w/WB Rflx Negative (Negative)
[2022-11-28 22:43] LABS: Basophils # (auto) 0.04 K/uL (0-0.2); Basophils % (auto) 0.4 %; Echinocytes 1+; Eosinophils # (auto) 0.01 K/uL (0-0.50); Eosinophils % (auto) 0.1 %; Immature Granulocytes # (auto) 0.09 K/uL (0.01-0.20); Immature Granulocytes % (auto) 0.8 %; Lymphocytes # (auto) 1.04 K/uL (1.2-3.4); Lymphocytes % (auto) 9.3 %; Monocytes # (auto) 0.32 K/uL (0.11-0.59); Monocytes % (auto) 2.9 %; Neutrophils # (auto) 9.68 K/uL (1.40-6.50); Neutrophils % (auto) 86.5 %; Platelet Estimate Decreased (Normal); Polychromasia 1+
--- NOTE | 2022-11-28 23:37 | History & Physical Report ---
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 Sever sepsis Anaplasmosis UTI possible Pyelo Metabolic encephalopathy secondary to sepsis He has started on Vanco cefepime and doxycycline which will be continued Received sepsis protocol fluids We will continue IV normal saline at 125 mill per hour and closely monitor hemodynamics If does not improve will transfer to ICU for pressors Close monitor Follow the cultures History of bladder cancer s/p cystectomy and ileal conduit [place] 2006 CT scan no obvious obstruction possible pyelo- JAROCHO on chronic kidney stage III Presented with creatinine of 6.5 CT scan no obvious no obstruction Mostly from above Getting fluids Closely follow the labs Nephro consult in a.m. Mild elevation of troponin Mostly demand ischemia from sepsis We will follow serial cardiac enzymes Elevated LFTs Mostly from severe sepsis and anaplasmosis We will follow repeat labs Thrombocytopenia Mostly from sepsis and anaplasmosis We will follow the labs Hyponatremia Sodium 132 Getting fluids we will follow labs DVT prophylaxis SCDs for now Disposition telemetry floor CODE STATUS DNR/DNI as per discussion with the son Normal 6.5 (2) Anaplasmosis: (3) UTI (urinary tract infection): (4) JAROCHO (acute kidney injury): History of Present Illness Chief Complaint: Severe sepsis, UTI, anaplasmosis Primary Care Provider: Demarco Guallpa MD 81-year-old male with past medical significant for hyperlipidemia, hypertension, chronic kidney disease stage III, 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 Son lives close by. Eats regular food and swallows okay as per the son was brought in because patient was feeling very weak and recurrent falls at home. Son thinks about a week ago patient fell and pulled his muscle on the right side and since then he is not ambulating much. He also sleeping a lot. He wanted him to come to the hospital but patient refused. Finally finally his son decided to bring him to the hospital and called EMS. EMS asked to give IV Versed to help facilitate the transfer as patient was delirious and combative. In the ER he was tachycardic and hypotensive with blood pressure in the 70s. He was given septic protocol fluids. Blood pressures somewhat improved. He was spiking temperatures. His platelets are 86. Creatinine 6.5. Initial lactic acid 2.1 but improved with the fluids. His urinalysis came back positive and also is on a spasmus. Came back positive. Patient is somewhat drowsy. Denies any chest pain or headache. Says he is doing okay. Son is in the room. As per son no nausea vomitings. Cannot give much history currently. Allergies Allergy/AdvReac Type Severity Reaction Status Date / Time meclizine Allergy Severe THROAT/TONGUE Verified 11/28/22 22:16 SWELLS aspirin AdvReac Unknown History of Verified 11/28/22 22:16 ulcers Home Medications Medication Instructions Recorded Confirmed Type acetaminophen 500 mg tablet 500 - 1,000 mg PO DIRECTED PRN 11/28/18 11/28/22 History (Tylenol Extra Strength) Pain atenolol 50 mg tablet 100 mg PO DAILY 11/28/18 11/28/22 History atorvastatin 20 mg tablet 20 mg PO PM 11/28/18 11/28/22 History cholecalciferol (vitamin D3) 10 400 unit PO DAILY 11/28/18 11/28/22 History mcg/mL (400 unit/mL) oral drops (D-Vi-Tish) clonazepam 1 mg tablet 0.5 mg PO BID PRN Anxiety 11/28/18 11/28/22 History clonazepam 1 mg tablet 1 mg PO HS PRN RESTLESSNESS 11/28/18 11/28/22 History ferrous sulfate 325 mg (65 mg 325 mg PO DAILY 11/28/18 11/28/22 History iron) tablet lorazepam 1 mg tablet 1 mg PO DIRECTED PRN BEFORE 11/28/18 11/28/22 History TRAVELING bajbdmlv-ngskvdju-xtjtx acid 400 1 tab PO DAILY 11/28/18 11/28/22 History mcg-vit K 20 mcg-lycop 300 mcg tablet (Men's One Daily) omeprazole 20 mg capsule,delayed 20 mg PO DAILYBB 11/28/18 11/28/22 History release amlodipine 5 mg tablet 5 mg PO DAILY 05/16/22 11/28/22 History trazodone 50 mg tablet 50 mg PO HS 05/16/22 11/28/22 History Past Med/Surg History Medical History Anxiety CKD (chronic kidney disease), stage III Dyslipidemia History of carcinoma of bladder History of colon polyps Hypertension Macular degeneration Tinnitus Tobacco use Surgical History H/O total cystectomy with ileal conduit Status post lumbar surgery Family History Other Cancer Coronary heart disease Social History Smoking Status: Unknown if ever smoked Cigarettes Per Day: 1-2 per day up to 12 per day, intermittently; Do You Dip or Chew Tobacco: No; Hx Alcohol Use: Yes Alcohol type: beer Alcohol Intake Frequency: 2-3 x/Week Hx Substance Use: No Preferred Language: Thai Communication Ability: Effective 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: No Beliefs That Will Affect Care: None marital status: / Current Living Situation: Alone Feels Safe at Home: Yes Assistive Devices: Cane, Glasses and Walker Review of Systems Review of Systems: Unobtainable due to reduced consciousness Physical Exam Physical Exam: General- Drowsy Head- atraumatic Eyes- PERRL, ENT- oropharynx dry Neck- supple, no JVD, Lungs- clear to auscultation and percussion Heart- regular rate rhythm; no murmur,Tachycardia Abdomen- normal bowel sounds, soft, nontender, s/p ileal conduit bag with clear urine seen Extremities- no pretibial edema, no erythema seen Neuro- Drowsy, answering some simple questions Skin- warm & dry Results & Data Results & Data Vital Signs (Past 12 Hours) Vital Signs Temp Pulse Resp BP Pulse Ox O2 Del Method 11/28/22 21:45 98 H 19 106/70 100 11/28/22 21:41 101 H 28 H 123/64 100 11/28/22 21:35 99 H 25 H 94/74 L 100 11/28/22 21:30 98 H 19 126/65 100 11/28/22 21:25 131/62 11/28/22 21:20 97 H 23 119/71 100 11/28/22 21:15 98 H 20 96/65 L 100 11/28/22 21:05 97 H 16 99/60 L 100 11/28/22 20:55 100 H 23 91/64 L 100 11/28/22 20:50 102 H 23 88/65 L 100 11/28/22 20:45 99 H 26 H 96/63 L 94 11/28/22 20:40 97 H 25 H 101/66 99 11/28/22 20:36 124 H 99/60 L 85 L 11/28/22 20:15 97 H 24 98/52 L 100 11/28/22 19:40 106 H 25 H 71/50 L 11/28/22 19:30 78 36 H 113/89 11/28/22 19:28 109 H 25 H 75/57 L 11/28/22 19:40 37.6 C H 11/28/22 19:54 100 Room Air 11/28/22 19:28 37.1 C 106 H 24 75/57 L 97 Room Air 11/28/22 19:28 108 H Diagnostic Findings Laboratory Results WBC 11.18 K/ul (4.8-10.8) H 11/28/22 19:39 RBC 4.48 M/uL (4.70-6.10) L 11/28/22 19:39 Hgb 14.8 g/dl (14.0-18.0) 11/28/22 19:39 POC Hgb 15.6 g/dl (14.0-18.0) 11/28/22 20:05 Hct 40.6 % (42.0-52.0) L 11/28/22 19:39 POC Hct 46 % (42-52) 11/28/22 20:05 MCV 90.6 fL (80.0-100.0) 11/28/22 19:39 MCH 33.0 pg (25.0-34.0) 11/28/22 19:39 MCHC 36.5 g/dL (32.0-36.0) H 11/28/22 19:39 RDW Std Deviation 44.7 fL (36.4-46.3) 11/28/22 19:39 RDW Coeff of Hemanth 13.4 % (11.5-14.5) 11/28/22 19:39 Plt Count 86 K/uL (130-400) L 11/28/22 19:39 MPV 13.0 fL (9.4-12.4) H 11/28/22 19:39 Immature Gran % (Auto) 0.8 % 11/28/22 19:39 Neut % (Auto) 86.5 % 11/28/22 19:39 Lymph % (Auto) 9.3 % 11/28/22 19:39 [place] % (Auto) 2.9 % 11/28/22 19:39 Eos % (Auto) 0.1 % 11/28/22 19:39 Baso % (Auto) 0.4 % 11/28/22 19:39 Neut # (Auto) 9.68 K/uL (1.40-6.50) H 11/28/22 19:39 Lymph # (Auto) 1.04 K/uL (1.2-3.4) L 11/28/22 19:39 [place] # (Auto) 0.32 K/uL (0.11-0.59) 11/28/22 19:39 Eos # (Auto) 0.01 K/uL (0-0.50) 11/28/22 19:39 Baso # (Auto) 0.04 K/uL (0-0.2) 11/28/22 19:39 Immature Gran # (Auto) 0.09 K/uL (0.01-0.20) 11/28/22 19:39 Platelet Estimate Decreased (Normal) L 11/28/22 19:39 Polychromasia 1+ 11/28/22 19:39 Echinocytes 1+ 11/28/22 19:39 VBG pH 7.35 (7.36-7.41) L 11/28/22 20:03 VBG pCO2 35 mmHg (38-50) L 11/28/22 20:03 VBG pO2 15 mmHg 11/28/22 20:03 VBG HCO3 19 mmol/L 11/28/22 20:03 VBG O2 Saturation < 60.0 % 11/28/22 20:03 VBG Base Excess -5.6 mEq/L 11/28/22 20:03 POC Sodium 132 mmol/L (135-144) L 11/28/22 20:05 Sodium 132 mmol/L (136-145) L 11/28/22 19:39 POC Potassium 4.8 mmol/L (3.3-5.0) 11/28/22 20:05 Potassium 4.9 mmol/L (3.5-5.1) 11/28/22 19:39 POC Chloride 102 mmol/L (101-112) 11/28/22 20:05 Chloride 101 mmol/L (98-107) 11/28/22 19:39 Carbon Dioxide 19 mmol/L (21-32) L 11/28/22 19:39 POC Total CO2 19 mmol/L (24-31) L 11/28/22 20:05 Anion Gap 12 (3-11) H 11/28/22 19:39 POC Anion Gap 16.0 mmol/L (16-25) 11/28/22 20:05 POC BUN > 140 mg/dl (7-18) H* 11/28/22 20:05 BUN 162 mg/dl (6-23) H 11/28/22 19:39 Creatinine 6.58 mg/dl (0.6-1.4) H* 11/28/22 19:39 POC Creatinine 7.8 mg/dl (0.6-1.3) H* 11/28/22 20:05 Est Cr Clr Drug Dosing Not Reportable 11/28/22 19:39 Est GFR ( Amer) 8.4 ml/min 11/28/22 19:39 Est GFR (Non-Af Amer) 7.3 ml/min 11/28/22 19:39 BUN/Creatinine Ratio 24.6 (10-20) H 11/28/22 19:39 Glucose 120 mg/dl (70-99(Fasting)) H 11/28/22 19:39 POC Glucose (other) 127 mg/dl (70-99) H 11/28/22 20:05 Lactate 1.6 mmol/L (0.4-2.0) 11/28/22 23:02 Calcium 8.4 mg/dl (8.6-10.3) L 11/28/22 19:39 POC Ioniz Calcium Rush 1.17 mmol/l (1.12-1.32) 11/28/22 20:05 Phosphorus 3.9 mg/dl (2.5-4.9) 11/28/22 19:39 Magnesium 2.3 mg/dl (1.7-2.4) 11/28/22 19:39 Total Bilirubin 1.3 mg/dl (0.2-1.0) H 11/28/22 19:39 Direct Bilirubin 0.7 mg/dl (0-0.2) H 11/28/22 19:39 AST 124 U/L (13-39) H 11/28/22 19:39 ALT 134 U/L (7-52) H 11/28/22 19:39 Alkaline Phosphatase 172 U/L (34-104) H 11/28/22 19:39 Total Creatine Kinase 175 U/L (30-223) 11/28/22 19:39 Troponin I High Sens 29.6 pg/ml (0-20) H 11/28/22 19:39 Total Protein 5.3 gm/dl (6.0-8.3) L 11/28/22 19:39 Albumin 2.6 gm/dl (3.4-5.0) L 11/28/22 19:39 Lipase 38 U/L (11-82) 11/28/22 19:39 Procalcitonin 6.35 ng/ml (0-0.5) H 11/28/22 19:39 Urine Color Dark Yellow 11/28/22 Unknown Urine Appearance Turbid (Clear) A 11/28/22 Unknown Urine pH 6.0 (4.5-7.5) 11/28/22 Unknown Ur Specific [place] 1.015 (1.000-1.030) 11/28/22 Unknown Urine Protein 1+ (Negative) H 11/28/22 Unknown Urine Glucose (UA) Negative (Negative) 11/28/22 Unknown Urine Ketones Trace (Negative) H 11/28/22 Unknown Urine Blood 3+ (Negative) H 11/28/22 Unknown Urine Nitrite Negative (Negative) 11/28/22 Unknown Urine Bilirubin Negative (Negative) 11/28/22 Unknown Urine Urobilinogen Negative (Negative) 11/28/22 Unknown Ur Leukocyte Esterase 3+ (Negative) H 11/28/22 Unknown Urine WBC (Auto) >30 /hpf (0-5) H 11/28/22 Unknown Urine RBC (Auto) 5-10 /hpf (0-4) H 11/28/22 Unknown U Hyaline Cast (Auto) 5-10 /lpf (0-5) H 11/28/22 Unknown U Epithel Cells (Auto) >30 /lpf (0-5) H 11/28/22 Unknown Urine Bacteria (Auto) 4+ (Negative) H 11/28/22 Unknown Urine Yeast Not Reportable 11/28/22 Unknown Ethyl Alcohol mg/dL < 10.0 mg/dl (<10.0) 11/28/22 20:19 Anaplasma Smear Cancelled 11/28/22 19:39 Anaplasma Smear See Comment A 11/28/22 19:39 Babesia Smear Cancelled 11/28/22 19:39 Babesia Smear See Comment 11/28/22 19:39 Lyme Disease IgG Ab Negative (Negative) 11/28/22 19:39 Lyme Disease IgM Ab Negative (Negative) 11/28/22 19:[address] 11/28/22 20:00 Exam(s): CT C SPINE EXAM: CT Cervical Spine Without Intravenous Contrast CLINICAL HISTORY: Reason for exam: sepsis, hypotension. TECHNIQUE: Axial computed tomography images of the cervical spine without intravenous contrast. CTDI is 25.6 mGy and DLP is 553.84 mGy-cm. Automated exposure control was utilized for the study. A dose lowering technique was utilized adhering to the principles of ALARA. COMPARISON: No relevant prior studies available. FINDINGS: The vertebral body heights are maintained. The craniocervical junction is intact. The atlanto-dens interval is maintained. The dens is intact. There is no spondylolisthesis. Multilevel cervical spondylosis and degenerative disc disease. Straightening of the cervical lordosis. The unenhanced neck soft tissues are grossly unremarkable. The visualized lung apices are grossly clear. IMPRESSION: No acute fracture or subluxation of the cervical spine. Electronically signed by: James Sloan MD 11/28/22 20:[address] 11/28/22 20:00 Exam(s): CT HEAD Without Contrast EXAM: CT Head Without Intravenous Contrast CLINICAL HISTORY: Reason for exam: sepsis, hypotension. TECHNIQUE: Axial computed tomography images of the head/brain without intravenous contrast. CTDI is 36.43 mGy and DLP is 624.41 mGy-cm. Automated exposure control was utilized for the study. A dose lowering technique was utilized adhering to the principles of ALARA. COMPARISON: No relevant prior studies available. FINDINGS: No acute intracranial hemorrhage. No midline shift or mass effect. The territorial posadas-white matter differentiation is maintained throughout. Age-related cerebral volume loss. Periventricular and subcortical white matter hypoattenuation, consistent with chronic microangiopathy. The visualized orbits appear grossly unremarkable. The calvarium is intact. The visualized paranasal sinuses and mastoid air cells are grossly clear. IMPRESSION: No acute intracranial hemorrhage, midline shift, or mass effect. Electronically signed by: James Sloan MD 11/28/22 20:51 PM Abdomen/Pelvis CT 11/28/22 20:09 Exam(s): CT ABDOMEN + PELVIS Without Contrast EXAM: CT Abdomen and Pelvis Without Intravenous Contrast CLINICAL HISTORY: Reason for exam: sepsis, hypotension. TECHNIQUE: Axial computed tomography images of the abdomen and pelvis without intravenous contrast. CTDI is 25.87 mGy and DLP is 1417.36 mGy-cm. Automated exposure control was utilized for the study. A dose lowering technique was utilized adhering to the principles of ALARA. COMPARISON: No relevant prior studies available. FINDINGS: Lung bases: Atelectasis at the lung bases. ABDOMEN: Liver: Unremarkable. Gallbladder and bile ducts: Unremarkable. No calcified stones. No ductal dilation. Pancreas: Unremarkable. No ductal dilation. Spleen: Unremarkable. No splenomegaly. Adrenals: Unremarkable. No mass. Kidneys and ureters: See below. Stomach and bowel: Unremarkable. No acute diverticulitis. No small bowel obstruction. No free intraperitoneal air. PELVIS: Appendix: Normal appendix. 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 Mild fullness of the LEFT renal collecting system, without obstructing stone. Bilateral perinephric stranding, greater on the LEFT. No renal stones. Reproductive: Unremarkable as visualized. ABDOMEN and PELVIS: Intraperitoneal space: Unremarkable. No free air. No significant fluid collection. Bones/joints: Degenerative changes of the spine. No acute fracture. No dislocation. Soft tissues: Unremarkable. Vasculature: Atherosclerotic changes of the aorta. No abdominal aortic aneurysm. Lymph nodes: Unremarkable. No enlarged lymph nodes. IMPRESSION: 1. No acute diverticulitis. No small bowel obstruction. No free intraperitoneal air. 2. Normal appendix. 3. 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 Mild fullness of the LEFT renal collecting system, without obstructing stone. Bilateral perinephric stranding, greater on the LEFT. No renal stones. Electronically signed by: James Sloan MD 11/28/22 21:[address] 11/28/22 20:09 Exam(s): CT CHEST Without Contrast EXAM: CT Chest Without Intravenous Contrast CLINICAL HISTORY: Reason for exam: sepsis, hypotension. TECHNIQUE: Axial computed tomography images of the chest without intravenous contrast. CTDI is 25.32 mGy and DLP is 918.95 mGy-cm. Automated exposure control was utilized for the study. A dose lowering technique was utilized adhering to the principles of ALARA. COMPARISON: No relevant prior studies available. FINDINGS: Lungs: Dependent atelectasis. Pleural space: Unremarkable. No focal infiltrate, pleural effusion, or pneumothorax. Heart: Unremarkable. No cardiomegaly. No significant pericardial effusion. No significant coronary artery calcifications. Bones/joints: Degenerative changes of the spine. No acute fracture. No dislocation. Soft tissues: Unremarkable. Vasculature: Atherosclerotic changes of the aorta, with coronary involvement. No thoracic aortic aneurysm. Lymph nodes: Unremarkable. No enlarged lymph nodes. IMPRESSION: No focal infiltrate, pleural effusion, or pneumothorax. Electronically signed by: James Sloan MD 11/28/22 20:59 PM ECG Additional Comments: ECG sinus tachycardia with first-degree AV block at a rate of 109 Code Status & VTE Plan VTE Prophylaxis Plan VTE Prophylaxis will be ordered: Yes
[2022-11-29] MEDS ORDERED: SODIUM CHLORIDE 0.9% 500 ML IV STA (00:11)
[2022-11-29] MEDS ORDERED: ONDANSETRON INJ 2 MG/ML 2 ML VIAL IV PRN (01:11)
[2022-11-29] MEDS ORDERED: NITROGLYCERIN SL 0.4 MG/TAB TAB SL PRN (01:11)
[2022-11-29] MEDS: PANTOprazole 40 MG TAB PO SCH (06:34)
--- NOTE | 2022-11-29 07:33 | XRay Report ---
XR chest 1V portable CLINICAL HISTORY: Sepsis. Fall. COMPARISON STUDY: Chest radiograph May 16, 2022. FINDINGS: There is no pneumothorax or definite pleural effusion. Left basilar opacity favors atelecta sis. Interstitial prominence is noted without overt pulmonary edema. Patient is mildly rotated. IMPRESSION: 1. Left basilar opacity which favors atelectasis. 2. No pneumothorax. ACT 112: Negative or not required by law. Electronically signed by: Victorino Clark M.D. 11/29/2022 7:31 AM
--- NOTE | 2022-11-29 08:00 | Electrocardiogram Report ---
Test Reason : Blood Pressure : / mmHG Vent. Rate : 109 BPM Atrial Rate : 109 BPM P-R Int : 226 ms QRS Dur : 076 ms QT Int : 300 ms P-R-T Axes : 089 -13 067 degrees QTc Int : 404 ms Sinus tachycardia with 1st degree A-V block Low voltage QRS Old Septal infarct (cited on or before 16-MAY-2022) Abnormal ECG When compared with ECG of 16-MAY-2022 11:21, Vent. rate has increased BY 46 BPM Confirmed by Bandar Reveles ([id number]) on 11/29/2022 7:59:55 AM Referred By: REFERRED SELF Confirmed By:Bandar Reveles
[2022-11-29 08:04] LABS: Albumin Level 2.1 gm/dl (3.4-5.0); BUN Creatinine Ratio 26.6 (10-20); Bilirubin Direct 0.6 mg/dl (0-0.2); Bilirubin,Total 1.1 mg/dl (0.2-1.0); Calcium 7.5 mg/dl (8.6-10.3); Creatinine Clr Calc Pharmacy 11.7 ml/min; Est GFR (African American) 10.7 ml/min; Est GFR (Non-African American) 9.3 ml/min; Potassium 4.5 mmol/L (3.5-5.1); Total Protein 4.3 gm/dl (6.0-8.3); Troponin I High Sensitivity 20.7 pg/ml (0-20)
[2022-11-29 08:36] LABS: Hematocrit (blood only) 33.9 % (42.0-52.0); Hemoglobin 12.3 g/dl (14.0-18.0); Mean Corpuscular Hemoglobin 32.1 pg (25.0-34.0); Mean Corpuscular Hgb Conc 36.3 g/dL (32.0-36.0); Mean Corpuscular Volume 88.5 fL (80.0-100.0); Mean Platelet Volume 13.5 fL (9.4-12.4); Platelet Count 77 K/uL (130-400); RDW Coefficient of Variation 14.1 % (11.5-14.5); RDW Standard Deviation 45.3 fL (36.4-46.3); Red Blood Count 3.83 M/uL (4.70-6.10); White Blood Count 9.07 K/ul (4.8-10.8)
[2022-11-29 08:37] LABS: Basophils # (auto) 0.02 K/uL (0-0.2); Basophils % (auto) 0.2 %; Echinocytes 2+; Eosinophils # (auto) 0.02 K/uL (0-0.50); Eosinophils % (auto) 0.2 %; Immature Granulocytes % (auto) 1.1 %; Lymphocytes # (auto) 1.62 K/uL (1.2-3.4); Lymphocytes % (auto) 17.9 %; Monocytes # (auto) 0.45 K/uL (0.11-0.59); Neutrophils # (auto) 6.86 K/uL (1.40-6.50); Neutrophils % (auto) 75.6 %; Platelet Estimate Decreased (Normal)
[2022-11-29] MEDS ORDERED: PNEUMOCOCCAL POLYSACCHARIDES 25 MCG/0.5 ML VIAL/SYR IM ONE (09:00)
[2022-11-29] MEDS: DOXYCYCLINE HYCLATE 100 MG in DEXTROSE 5% 100 ML IV SCH ×2 (09:28→20:57)
[2022-11-29] MEDS: SODIUM CHLORIDE 0.9% 1000ML 1,000 ML IV SCH ×2 (09:28→11:22)
--- NOTE | 2022-11-29 10:28 | Pharmacy Report ---
Pharmacy PK ABX Note - Date of Service November 29, 2022 - Assessment and Plan Assessment 81 year old M started on Vancomycin for treatment of severe sepsis. Pertinent microbiologic data includes: Nasal swab pending; urine culture preliminary growing gram neg bacilli; blood cultures pending. Patient received loading dose of Vancomycin early today around 01:00 AM. Plan Vancomycin * Loading dose: 2000 mg IV x 1 in the ED today AM. * Patient has history of chronic kidney disease stage 3. Currently also with acute renal insufficiency. * Will dose Vancomycin with one-time doses based on levels. * Random Vancomycin level obtained this AM around 6 hrs after the loading dose given was 20.1 mcg/ml. * Vancomycin 1000 mg (11.7 mg/kg) ordered x1 this afternoon since goal trough level range is 15-20 mcg/ml and currently level is already at goal. Expect level to trend down slowly. Therefore, Vancomycin is re-ordered today. * Next Random level ordered for: 11/30/22 AM * Will monitor renal function and make adjustments. Pharmacy will continue to follow and will adjust dose/frequency as necessary. Thank you.
--- NOTE | 2022-11-29 10:38 | Nephrology Consultation ---
Date of Consultation November 29, 2022 Assessment & Plan (1) Acute renal failure: Severe acute renal failure with a creatinine 6+ up from his baseline of 1.3 six months ago. He is rapidly improving as creatinine has come down to 5+ and less than 2 alert time. With very good urine output of 350 mL in less than 4-hour time. Etiology is volume depletion/ATN in the setting of sepsis. But because he is improving so fast high chance he will not need dialysis. No further work- up needed for the etiology. Chloride is rising bicarb is dropping with the use of normal saline so we will change the fluid to half-normal saline with 75 bicarb and run at 100 mill per hour. (2) Sepsis: Blood pressure is not low anymore. 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 Also has history of alcoholism, lives alone at home and ambulates with walker. Son lives close by. Patient was brought to the hospital because patient was feeling very weak and recurrent falls at home. Son thinks about a week ago patient fell and pulled his muscle on the right side and since then he is not ambulating much. He is also sleeping a lot. He wanted him to come to the hospital but patient refused but he agreed yesterday. EMS had to give IV Versed to help facilitate the transfer as patient was delirious and combative. In the ER he was tachycardic and hypotensive with blood pressure in the 70s. He was given lots of IV fluids. Blood pressures somewhat improved and is good now without any pressors. He was also having fever. Blood work showed his platelets are 86. Creatinine 6.5. Initial lactic acid 2.1 but improved with the fluids. After overnight IV hydration creatinine has come down to 5.3 and less than 12 hours. He had a creatinine of 1.3 as of May 2022. he has already made 350 in the left urine in the last 4 hours. Patient is somewhat drowsy. Denies any chest pain or headache. Patient cannot give much history currently. Review of system-----unable to obtain as patient still seems confused as well as very hard of hearing. Allergies Allergy/AdvReac Type Severity Reaction Status Date / Time meclizine Allergy Severe THROAT/TONGUE Verified 11/28/22 22:16 SWELLS aspirin AdvReac Unknown History of Verified 11/28/22 22:16 ulcers Home Medications Medication Instructions Recorded Confirmed Type acetaminophen 500 mg tablet 500 - 1,000 mg PO DIRECTED PRN 11/28/18 11/28/22 History (Tylenol Extra Strength) Pain atenolol 50 mg tablet 100 mg PO DAILY 11/28/18 11/28/22 History atorvastatin 20 mg tablet 20 mg PO PM 11/28/18 11/28/22 History cholecalciferol (vitamin D3) 10 400 unit PO DAILY 11/28/18 11/28/22 History mcg/mL (400 unit/mL) oral drops (D-Vi-Tish) clonazepam 1 mg tablet 0.5 mg PO BID PRN Anxiety 11/28/18 11/28/22 History clonazepam 1 mg tablet 1 mg PO HS PRN RESTLESSNESS 11/28/18 11/28/22 History ferrous sulfate 325 mg (65 mg 325 mg PO DAILY 11/28/18 11/28/22 History iron) tablet lorazepam 1 mg tablet 1 mg PO DIRECTED PRN BEFORE 11/28/18 11/28/22 History TRAVELING hrflzidg-nssrfcol-yxjzl acid 400 1 tab PO DAILY 11/28/18 11/28/22 History mcg-vit K 20 mcg-lycop 300 mcg tablet (Men's One Daily) omeprazole 20 mg capsule,delayed 20 mg PO DAILYBB 11/28/18 11/28/22 History release amlodipine 5 mg tablet 5 mg PO DAILY 05/16/22 11/28/22 History trazodone 50 mg tablet 50 mg PO HS 05/16/22 11/28/22 History Patient History Medical History Anxiety CKD (chronic kidney disease), stage III Dyslipidemia History of carcinoma of bladder History of colon polyps Hypertension Macular degeneration Tinnitus Tobacco use Surgical History H/O total cystectomy with ileal conduit Status post lumbar surgery Family History Other Cancer Coronary heart disease Social History Smoking Status: Current every day smoker Cigarettes Per Day: 1-2 per day up to 12 per day, intermittently; Second Hand Exposure: No; Do You Dip or Chew Tobacco: No; Tobacco Cessation Education Requested by Patient: No Hx Alcohol Use: Yes Alcohol type: beer Alcohol Intake Frequency: 2-3 x/Week Hx Substance Use: No Preferred Language: Danish Communication Ability: Effective 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 Unable to obtain meaningful history from the patient Constitutional: No respiratory distress Neck: Supple no JVD Respiratory: Bilateral decreased breath sound but very poor inspiratory effort from the patient Cardiovascular: Regular rate and rhythm. No murmur rubs or gallop no edema Gastrointestinal (Abdomen): Soft and nontender. He has an ileal conduit Skin: No rash noted Neurologic: Awake alert oriented does answer few questions. Results & Data Vital Signs (Past 12 Hours) Vital Signs Temp Pulse Pulse Resp BP BP Pulse Ox 11/29/22 07:39 36.3 C L 97 H 17 107/58 L 92 11/29/22 01:30 11/29/22 01:17 98 H 11/29/22 01:11 11/29/22 03:15 36.6 C 94 H 22 100/64 94 11/29/22 01:10 36.4 C L 101 H 18 98/62 L 92 11/29/22 00:31 96 H 21 91/57 L 96 11/29/22 00:00 101/53 L 11/28/22 23:45 97 H 22 91/55 L 94 11/28/22 23:40 92/45 L 11/28/22 23:35 99 H 20 83/63 L 95 11/28/22 23:25 100 H 22 84/62 L 96 11/28/22 23:22 99 H 19 89/71 L 95 11/28/22 23:15 103 H 18 97/60 L 95 11/28/22 23:10 102 H 21 100/72 95 11/28/22 23:05 99 H 19 87/56 L 95 11/28/22 23:02 101 H 21 84/64 L 93 11/28/22 22:50 26 H 94/55 L 92 11/28/22 22:41 101 H 24 114/65 97 Pulse Ox O2 Del Method O2 Del Method 11/29/22 07:39 Room Air 11/29/22 01:30 Room Air 11/29/22 01:17 11/29/22 01:11 92 Room Air 11/29/22 03:15 Room Air 11/29/22 01:10 Room Air 11/29/22 00:31 11/29/22 00:00 11/28/22 23:45 11/28/22 23:40 11/28/22 23:35 11/28/22 23:25 11/28/22 23:22 11/28/22 23:15 11/28/22 23:10 11/28/22 23:05 11/28/22 23:02 11/28/22 22:50 11/28/22 22:41 Laboratory Results Baseline creatinine 1.3 as of May 2022 Creatinine on admission 6+ Most recent creatinine this morning 5+ (2) Sepsis Acute renal failure type: unspecified Sepsis acute organ dysfunction status: with acute organ dysfunction Sepsis type: sepsis due to unspecified organism Severe sepsis acute organ dysfunction type: acute renal failure Severe sepsis shock status: with septic shock Qualified Code(s): A41.9 - Sepsis, unspecified organism; R65.21 - Severe sepsis with septic shock; N17.9 - Acute kidney failure, unspecified
[2022-11-29] MEDS ORDERED: STAT IV STA (10:44)
[2022-11-29] MEDS: SODIUM BICARBONATE 8.4% 75 MEQ in SODIUM CHLORIDE 0.45 % 1,000 ML IV SCH (11:32)
[2022-11-29] MEDS ORDERED: VANCOMYCIN HCL 1,000 MG in SODIUM CHLORIDE 0.9% 250 ML IV ONE (14:00)
[2022-11-29 14:16] LABS: Anaplasmosis Smear(Rpt to DOH) Pos for Anaplasma
--- NOTE | 2022-11-29 14:41 | Hospitalist Progress Note ---
Date of Service November 29, 2022 Assessment & Plan (1) Anaplasmosis: (2) Sepsis: Plan 81-year-old male with PMH of HLD, HTN, CKD stage III, 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 Patient was also noted to be delirious and combative per EMS note. He is being managed for the following: Severe sepsis POA: At admission lactate 2.1, WBC 11.18 K, temperature 37.6 C, heart rate in 100s, respiratory rate in 20s, blood pressure low normal. Likely secondary to complicated UTI Anaplasmosis Catheter associated UTI possible pyelonephritis Metabolic encephalopathy secondary to sepsis Recurrent falls/scalp laceration: wound care consult, gen sx for laceration repair. Patient noted to be not ambulating well and also noted to be delirious and combative prior to arrival. History of bladder cancer s/p cystectomy and ileal conduit in 2006. Admitting UA suggestive of UTI, patient has ileal conduit connected to urinary bladder. Admitting imagings: CXR/C-spine CT/head CT/CT chest with no acute findings. CTAP with status post cystectomy with ileal conduit and right lower quadrant ileostomy. Mild fullness of the left renal collecting system, without obstructing stone. Bilateral perinephric stranding, greater on the left. No renal stones. Status post sepsis protocol fluids Follow admitting blood culture and urine culture. He has started on Vanco cefepime and doxycycline 11/28, drop vanc 11/29 as UCx w/ GNB Patient oriented x4 today, advance diet as tolerated Blood pressure medications on hold due to soft blood pressure. Acute kidney injury on chronic kidney stage III: Baseline creatinine of 1.3. Admitting creatinine of 6.5, CT abdomen pelvis as above, getting IV fluids, creatinine trending down. Nephrology on board, appreciate recommendation. Currently on half-normal saline and bicarb at 100 mL an hour. BMP in AM. Likely demand ischemia: Troponin flat trended, EKG with no acute ST or T changes, patient with no chest pain. Likely secondary to acute illness. Transaminitis: Likely secondary to sepsis, trending down, labs in AM. Thrombocytopenia: Likely secondary to sepsis, will follow, labs in AM. Hyponatremia: Likely chronic, stable. DVT prophylaxis: SCDs for now consider chemoprophylaxis tomorrow depending on platelets trend. Disposition: We will order PT/OT, expect discharge once renal function improves. CODE STATUS DNR/DNI Updated patient's daughter at bedside and answered all her questions. Admission and Anticipated Discharge Date Admission Date: November 28, 2022 Subjective Patient seen and examined at bedside as a follow-up of complicated UTI, anaplasmosis, acute kidney injury on chronic kidney stage III Patient was lying semiupright in bed, on room air, not in distress, oriented, denies any headache or dizziness, reports scrotal pain, denies any chest pain or palpitation abdominal pain. Physical Exam Physical Exam: GENERAL: Alert and oriented x3. NAD, on RA. Appears weak/ill/frail. HEENT: No pallor, no icterus. Pupils equal, round and reactive to light. Oral mucosa moist. NECK: No JVD, no neck masses. HEART: S1 and S2 heard. Regular rate and rhythm. No murmur, no gallop. RESPIRATORY SYSTEM: Normal AP diameter. No accessory muscle use. No wheezing, no crackles. ABDOMEN: Soft, bowel sounds present, nontender, no distention. CENTRAL NERVOUS SYSTEM: No facial droop. Speech is clear. Obeys simple commands. Moves extremities. EXTREMITIES: trace ble edema, no erythema seen. erythema noted over scrotum (likely 2/2 urinary leak/excoriation) Results & Data Results & Data Vital Signs (Past 12 Hours) Vital Signs Temp Pulse Resp BP Pulse Ox O2 Del Method 11/29/22 10:43 36.4 C L 94 H 16 90/57 L 94 Room Air 11/29/22 07:39 36.3 C L 97 H 17 107/58 L 92 Room Air 11/29/22 03:15 36.6 C 94 H 22 100/64 94 Room Air (2) Sepsis Acute renal failure type: unspecified Sepsis acute organ dysfunction status: with acute organ dysfunction Sepsis type: sepsis due to unspecified organism Severe sepsis acute organ dysfunction type: acute renal failure Severe sepsis shock status: with septic shock Qualified Code(s): A41.9 - Sepsis, unspecified organism; R65.21 - Severe sepsis with septic shock; N17.9 - Acute kidney failure, unspecified
--- NOTE | 2022-11-29 16:55 | Surgery Consultation ---
Date of Consultation November 29, 2022 Assessment & Plan (1) Scalp laceration: Assessment: Patient is a 81 years old gentleman who was admitted to the hospital for sepsis. patient had scalp laceration about 10 days ago. the laceration healed. Plan: no surgery indication now. let the scalp laceration secondary heal. sign off today, please call with questions, Thanks. 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 I was asked for consult scalp laceration. pt fall injury head caused scalp laceration 10 days ago. now no active bleeding, pt denies headache. no fever, the laceration about 3 cm. no redness. no drainage. pt was admitted to hospital for sepsis. Allergies Allergy/AdvReac Type Severity Reaction Status Date / Time meclizine Allergy Severe THROAT/TONGUE Verified 11/28/22 22:16 SWELLS aspirin AdvReac Unknown History of Verified 11/28/22 22:16 ulcers Home Medications Medication Instructions Recorded Confirmed Type acetaminophen 500 mg tablet 500 - 1,000 mg PO DIRECTED PRN 11/28/18 11/28/22 History (Tylenol Extra Strength) Pain atenolol 50 mg tablet 100 mg PO DAILY 11/28/18 11/28/22 History atorvastatin 20 mg tablet 20 mg PO PM 11/28/18 11/28/22 History cholecalciferol (vitamin D3) 10 400 unit PO DAILY 11/28/18 11/28/22 History mcg/mL (400 unit/mL) oral drops (D-Vi-Tish) clonazepam 1 mg tablet 0.5 mg PO BID PRN Anxiety 11/28/18 11/28/22 History clonazepam 1 mg tablet 1 mg PO HS PRN RESTLESSNESS 11/28/18 11/28/22 History ferrous sulfate 325 mg (65 mg 325 mg PO DAILY 11/28/18 11/28/22 History iron) tablet lorazepam 1 mg tablet 1 mg PO DIRECTED PRN BEFORE 11/28/18 11/28/22 History TRAVELING dxmmvkft-[id number]-alqfx acid 400 1 tab PO DAILY 11/28/18 11/28/22 History mcg-vit K 20 mcg-lycop 300 mcg tablet (Men's One Daily) omeprazole 20 mg capsule,delayed 20 mg PO DAILYBB 11/28/18 11/28/22 History release amlodipine 5 mg tablet 5 mg PO DAILY 05/16/22 11/28/22 History trazodone 50 mg tablet 50 mg PO HS 05/16/22 11/28/22 History Patient History Medical History Anxiety CKD (chronic kidney disease), stage III Dyslipidemia History of carcinoma of bladder History of colon polyps Hypertension Macular degeneration Tinnitus Tobacco use Surgical History H/O total cystectomy with ileal conduit Status post lumbar surgery Family History Other Cancer Coronary heart disease Social History Smoking Status: Current every day smoker Cigarettes Per Day: 1-2 per day up to 12 per day, intermittently; Second Hand Exposure: No; Do You Dip or Chew Tobacco: No; Tobacco Cessation Education Requested by Patient: No Hx Alcohol Use: Yes Alcohol type: beer Alcohol Intake Frequency: 2-3 x/Week Hx Substance Use: No Preferred Language: Romanian Communication Ability: Effective Printed [employer] Designer Required: No Beliefs That Will Affect Care: None marital status: / Current Living Situation: Alone Other Information That Helps Us Care for You: No Feels Safe at Home: Yes Safety Concerns: Feels Safe At This Time Assistive Devices: Cane and Walker Review of Systems Constitutional: as per Subjective / HPI Eyes: as per Subjective / HPI Respiratory: as per Subjective / HPI Cardiovascular: as per Subjective / HPI Additional Comments: HTN, hyperlipidemia Gastrointestinal: as per Subjective / HPI GI bleeding Genitourinary: + as per Subjective / HPI Neurologic: as per Subjective / HPI Psychiatric: as per Subjective / HPI Endocrine: as per Subjective / HPI Hematologic / Lymphatic: as per Subjective / HPI Physical Exam Constitutional: WD/WN, vitals as above Eyes: PERRL, conjunctivae normal, anicteric sclerae Neck: trachea midline, no thyromegaly Respiratory: normal respiratory effort, lungs clear to auscultation Cardiovascular: RRR, no murmur, no edema Gastrointestinal (Abdomen): normal bowel sounds, soft, nontender, no hepatosplenomegaly Skin: 3 cm scalp laceration, the wound healed, no redness, no drainage. Neurologic: patellar DTR's 2+ bilat, sensation intact Psychiatric: A+Ox3, euthymic affect Results & Data Vital Signs (Past 12 Hours) Vital Signs Temp Pulse Resp BP Pulse Ox O2 Del Method 11/29/22 16:10 36.2 C L 93 H 24 115/66 96 Room Air 11/29/22 10:43 36.4 C L 94 H 16 90/57 L 94 Room Air 11/29/22 07:39 36.3 C L 97 H 17 107/58 L 92 Room Air Laboratory Results Lab Results 11/28/22 11/28/22 11/28/22 Range/Units 19:39 19:39 19:39 WBC 11.18 H (4.8-10.8) K/ul RBC 4.48 L (4.70-6.10) M/uL Hgb 14.8 (14.0-18.0) g/dl POC Hgb (14.0-18.0) g/dl Hct 40.6 L (42.0-52.0) % POC Hct (42-52) % MCV 90.6 (80.0-100.0) fL MCH 33.0 (25.0-34.0) pg MCHC 36.5 H (32.0-36.0) g/dL RDW Std Deviation 44.7 (36.4-46.3) fL RDW Coeff of Hemanth 13.4 (11.5-14.5) % Plt Count 86 L (130-400) K/uL MPV 13.0 H (9.4-12.4) fL Immature Gran % (Auto) 0.8 % Neut % (Auto) 86.5 % Lymph % (Auto) 9.3 % [place] % (Auto) 2.9 % Eos % (Auto) 0.1 % Baso % (Auto) 0.4 % Neut # (Auto) 9.68 H (1.40-6.50) K/uL Lymph # (Auto) 1.04 L (1.2-3.4) K/uL [place] # (Auto) 0.32 (0.11-0.59) K/uL Eos # (Auto) 0.01 (0-0.50) K/uL Baso # (Auto) 0.04 (0-0.2) K/uL Immature Gran # (Auto) 0.09 (0.01-0.20) K/uL Platelet Estimate Decreased L (Normal) Polychromasia 1+ Echinocytes 1+ Peripher Smr Path Cons VBG pH (7.36-7.41) VBG pCO2 (38-50) mmHg VBG pO2 mmHg VBG HCO3 mmol/L VBG O2 Saturation % VBG Base Excess mEq/L POC Sodium (135-144) mmol/L Sodium 132 L (136-145) mmol/L POC Potassium (3.3-5.0) mmol/L Potassium 4.9 (3.5-5.1) mmol/L POC Chloride (101-112) mmol/L Chloride 101 (98-107) mmol/L Carbon Dioxide 19 L (21-32) mmol/L POC Total CO2 (24-31) mmol/L Anion Gap 12 H (3-11) POC Anion Gap (16-25) mmol/L POC BUN (7-18) mg/dl BUN 162 H (6-23) mg/dl Creatinine 6.58 H* (0.6-1.4) mg/dl POC Creatinine (0.6-1.3) mg/dl Est Cr Clr Drug Dosing Not Reportable Est GFR ( Amer) 8.4 ml/min Est GFR (Non-Af Amer) 7.3 ml/min BUN/Creatinine Ratio 24.6 H (10-20) Glucose 120 H (70-99(Fasting)) mg/dl POC Glucose (other) (70-99) mg/dl Lactate (0.4-2.0) mmol/L Calcium 8.4 L (8.6-10.3) mg/dl POC Ioniz Calcium Rush (1.12-1.32) mmol/l Phosphorus 3.9 (2.5-4.9) mg/dl Magnesium 2.3 (1.7-2.4) mg/dl Total Bilirubin 1.3 H (0.2-1.0) mg/dl Direct Bilirubin 0.7 H (0-0.2) mg/dl AST 124 H (13-39) U/L ALT 134 H (7-52) U/L Alkaline Phosphatase 172 H (34-104) U/L Total Creatine Kinase 175 (30-223) U/L Troponin I High Sens 29.6 H (0-20) pg/ml Total Protein 5.3 L (6.0-8.3) gm/dl Albumin 2.6 L (3.4-5.0) gm/dl Lipase 38 (11-82) U/L Procalcitonin 6.35 H (0-0.5) ng/ml Urine Color Urine Appearance (Clear) Urine pH (4.5-7.5) Ur Specific [place] (1.000-1.030) Urine Protein (Negative) Urine Glucose (UA) (Negative) Urine Ketones (Negative) Urine Blood (Negative) Urine Nitrite (Negative) Urine Bilirubin (Negative) Urine Urobilinogen (Negative) Ur Leukocyte Esterase (Negative) Urine WBC (Auto) (0-5) /hpf Urine RBC (Auto) (0-4) /hpf U Hyaline Cast (Auto) (0-5) /lpf U Epithel Cells (Auto) (0-5) /lpf Urine Bacteria (Auto) (Negative) Urine Yeast Nasal Screen MRSA (PCR) (Negative) Random Vancomycin (10-20) mcg/ml Ethyl Alcohol mg/dL (<10.0) mg/dl Anaplasma Smear See Comment A Anaplasma Comment Pos for Anaplasma Babesia Smear See Comment Lyme Disease IgG Ab (Negative) Lyme Disease IgM Ab (Negative) 11/28/22 11/28/22 11/28/22 Range/Units 19:39 19:39 20:03 WBC (4.8-10.8) K/ul RBC (4.70-6.10) M/uL Hgb (14.0-18.0) g/dl POC Hgb (14.0-18.0) g/dl Hct (42.0-52.0) % POC Hct (42-52) % MCV (80.0-100.0) fL MCH (25.0-34.0) pg MCHC (32.0-36.0) g/dL RDW Std Deviation (36.4-46.3) fL RDW Coeff of Hemanth (11.5-14.5) % Plt Count (130-400) K/uL MPV (9.4-12.4) fL Immature Gran % (Auto) % Neut % (Auto) % Lymph % (Auto) % [place] % (Auto) % Eos % (Auto) % Baso % (Auto) % Neut # (Auto) (1.40-6.50) K/uL Lymph # (Auto) (1.2-3.4) K/uL [place] # (Auto) (0.11-0.59) K/uL Eos # (Auto) (0-0.50) K/uL Baso # (Auto) (0-0.2) K/uL Immature Gran # (Auto) (0.01-0.20) K/uL Platelet Estimate (Normal) Polychromasia Echinocytes Peripher Smr Path Cons VBG pH (7.36-7.41) VBG pCO2 (38-50) mmHg VBG pO2 mmHg VBG HCO3 mmol/L VBG O2 Saturation % VBG Base Excess mEq/L POC Sodium (135-144) mmol/L Sodium (136-145) mmol/L POC Potassium (3.3-5.0) mmol/L Potassium (3.5-5.1) mmol/L POC Chloride (101-112) mmol/L Chloride (98-107) mmol/L Carbon Dioxide (21-32) mmol/L POC Total CO2 (24-31) mmol/L Anion Gap (3-11) POC Anion Gap (16-25) mmol/L POC BUN (7-18) mg/dl BUN (6-23) mg/dl Creatinine (0.6-1.4) mg/dl POC Creatinine (0.6-1.3) mg/dl Est Cr Clr Drug Dosing Est GFR ( Amer) ml/min Est GFR (Non-Af Amer) ml/min BUN/Creatinine Ratio (10-20) Glucose (70-99(Fasting)) mg/dl POC Glucose (other) (70-99) mg/dl Lactate 2.1 H* (0.4-2.0) mmol/L Calcium (8.6-10.3) mg/dl POC Ioniz Calcium Rush (1.12-1.32) mmol/l Phosphorus (2.5-4.9) mg/dl Magnesium (1.7-2.4) mg/dl Total Bilirubin (0.2-1.0) mg/dl Direct Bilirubin (0-0.2) mg/dl AST (13-39) U/L ALT (7-52) U/L Alkaline Phosphatase (34-104) U/L Total Creatine Kinase (30-223) U/L Troponin I High Sens (0-20) pg/ml Total Protein (6.0-8.3) gm/dl Albumin (3.4-5.0) gm/dl Lipase (11-82) U/L Procalcitonin (0-0.5) ng/ml Urine Color Urine Appearance (Clear) Urine pH (4.5-7.5) Ur Specific [place] (1.000-1.030) Urine Protein (Negative) Urine Glucose (UA) (Negative) Urine Ketones (Negative) Urine Blood (Negative) Urine Nitrite (Negative) Urine Bilirubin (Negative) Urine Urobilinogen (Negative) Ur Leukocyte Esterase (Negative) Urine WBC (Auto) (0-5) /hpf Urine RBC (Auto) (0-4) /hpf U Hyaline Cast (Auto) (0-5) /lpf U Epithel Cells (Auto) (0-5) /lpf Urine Bacteria (Auto) (Negative) Urine Yeast Nasal Screen MRSA (PCR) (Negative) Random Vancomycin (10-20) mcg/ml Ethyl Alcohol mg/dL (<10.0) mg/dl Anaplasma Smear Cancelled Anaplasma Comment Babesia Smear Cancelled Lyme Disease IgG Ab Negative (Negative) Lyme Disease IgM Ab Negative (Negative) 11/28/22 11/28/22 11/28/22 Range/Units 20:03 20:05 20:19 WBC (4.8-10.8) K/ul RBC (4.70-6.10) M/uL Hgb (14.0-18.0) g/dl POC Hgb 15.6 (14.0-18.0) g/dl Hct (42.0-52.0) % POC Hct 46 (42-52) % MCV (80.0-100.0) fL MCH (25.0-34.0) pg MCHC (32.0-36.0) g/dL RDW Std Deviation (36.4-46.3) fL RDW Coeff of Hemanth (11.5-14.5) % Plt Count (130-400) K/uL MPV (9.4-12.4) fL Immature Gran % (Auto) % Neut % (Auto) % Lymph % (Auto) % [place] % (Auto) % Eos % (Auto) % Baso % (Auto) % Neut # (Auto) (1.40-6.50) K/uL Lymph # (Auto) (1.2-3.4) K/uL [place] # (Auto) (0.11-0.59) K/uL Eos # (Auto) (0-0.50) K/uL Baso # (Auto) (0-0.2) K/uL Immature Gran # (Auto) (0.01-0.20) K/uL Platelet Estimate (Normal) Polychromasia Echinocytes Peripher Smr Path Cons VBG pH 7.35 L (7.36-7.41) VBG pCO2 35 L (38-50) mmHg VBG pO2 15 mmHg VBG HCO3 19 mmol/L VBG O2 Saturation < 60.0 % VBG Base Excess -5.6 mEq/L POC Sodium 132 L (135-144) mmol/L Sodium (136-145) mmol/L POC Potassium 4.8 (3.3-5.0) mmol/L Potassium (3.5-5.1) mmol/L POC Chloride 102 (101-112) mmol/L Chloride (98-107) mmol/L Carbon Dioxide (21-32) mmol/L POC Total CO2 19 L (24-31) mmol/L Anion Gap (3-11) POC Anion Gap 16.0 (16-25) mmol/L POC BUN > 140 H* (7-18) mg/dl BUN (6-23) mg/dl Creatinine (0.6-1.4) mg/dl POC Creatinine 7.8 H* (0.6-1.3) mg/dl Est Cr Clr Drug Dosing Est GFR ( Amer) ml/min Est GFR (Non-Af Amer) ml/min BUN/Creatinine Ratio (10-20) Glucose (70-99(Fasting)) mg/dl POC Glucose (other) 127 H (70-99) mg/dl Lactate (0.4-2.0) mmol/L Calcium (8.6-10.3) mg/dl POC Ioniz Calcium Rush 1.17 (1.12-1.32) mmol/l Phosphorus (2.5-4.9) mg/dl Magnesium (1.7-2.4) mg/dl Total Bilirubin (0.2-1.0) mg/dl Direct Bilirubin (0-0.2) mg/dl AST (13-39) U/L ALT (7-52) U/L Alkaline Phosphatase (34-104) U/L Total Creatine Kinase (30-223) U/L Troponin I High Sens (0-20) pg/ml Total Protein (6.0-8.3) gm/dl Albumin (3.4-5.0) gm/dl Lipase (11-82) U/L Procalcitonin (0-0.5) ng/ml Urine Color Urine Appearance (Clear) Urine pH (4.5-7.5) Ur Specific [place] (1.000-1.030) Urine Protein (Negative) Urine Glucose (UA) (Negative) Urine Ketones (Negative) Urine Blood (Negative) Urine Nitrite (Negative) Urine Bilirubin (Negative) Urine Urobilinogen (Negative) Ur Leukocyte Esterase (Negative) Urine WBC (Auto) (0-5) /hpf Urine RBC (Auto) (0-4) /hpf U Hyaline Cast (Auto) (0-5) /lpf U Epithel Cells (Auto) (0-5) /lpf Urine Bacteria (Auto) (Negative) Urine Yeast Nasal Screen MRSA (PCR) (Negative) Random Vancomycin (10-20) mcg/ml Ethyl Alcohol mg/dL < 10.0 (<10.0) mg/dl Anaplasma Smear Anaplasma Comment Babesia Smear Lyme Disease IgG Ab (Negative) Lyme Disease IgM Ab (Negative) 11/28/22 11/28/22 11/28/22 Range/Units 23:02 23:02 Unknown WBC (4.8-10.8) K/ul RBC (4.70-6.10) M/uL Hgb (14.0-18.0) g/dl POC Hgb (14.0-18.0) g/dl Hct (42.0-52.0) % POC Hct (42-52) % MCV (80.0-100.0) fL MCH (25.0-34.0) pg MCHC (32.0-36.0) g/dL RDW Std Deviation (36.4-46.3) fL RDW Coeff of Hemanth (11.5-14.5) % Plt Count (130-400) K/uL MPV (9.4-12.4) fL Immature Gran % (Auto) % Neut % (Auto) % Lymph % (Auto) % [place] % (Auto) % Eos % (Auto) % Baso % (Auto) % Neut # (Auto) (1.40-6.50) K/uL Lymph # (Auto) (1.2-3.4) K/uL [place] # (Auto) (0.11-0.59) K/uL Eos # (Auto) (0-0.50) K/uL Baso # (Auto) (0-0.2) K/uL Immature Gran # (Auto) (0.01-0.20) K/uL Platelet Estimate (Normal) Polychromasia Echinocytes Peripher Smr Path Cons VBG pH (7.36-7.41) VBG pCO2 (38-50) mmHg VBG pO2 mmHg VBG HCO3 mmol/L VBG O2 Saturation % VBG Base Excess mEq/L POC Sodium (135-144) mmol/L Sodium (136-145) mmol/L POC Potassium (3.3-5.0) mmol/L Potassium (3.5-5.1) mmol/L POC Chloride (101-112) mmol/L Chloride (98-107) mmol/L Carbon Dioxide (21-32) mmol/L POC Total CO2 (24-31) mmol/L Anion Gap (3-11) POC Anion Gap (16-25) mmol/L POC BUN (7-18) mg/dl BUN (6-23) mg/dl Creatinine (0.6-1.4) mg/dl POC Creatinine (0.6-1.3) mg/dl Est Cr Clr Drug Dosing Est GFR ( Amer) ml/min Est GFR (Non-Af Amer) ml/min BUN/Creatinine Ratio (10-20) Glucose (70-99(Fasting)) mg/dl POC Glucose (other) (70-99) mg/dl Lactate 1.6 (0.4-2.0) mmol/L Calcium (8.6-10.3) mg/dl POC Ioniz Calcium Rush (1.12-1.32) mmol/l Phosphorus (2.5-4.9) mg/dl Magnesium (1.7-2.4) mg/dl Total Bilirubin (0.2-1.0) mg/dl Direct Bilirubin (0-0.2) mg/dl AST (13-39) U/L ALT (7-52) U/L Alkaline Phosphatase (34-104) U/L Total Creatine Kinase (30-223) U/L Troponin I High Sens 24.0 H (0-20) pg/ml Total Protein (6.0-8.3) gm/dl Albumin (3.4-5.0) gm/dl Lipase (11-82) U/L Procalcitonin (0-0.5) ng/ml Urine Color Dark Yellow Urine Appearance Turbid A (Clear) Urine pH 6.0 (4.5-7.5) Ur Specific [place] 1.015 (1.000-1.030) Urine Protein 1+ H (Negative) Urine Glucose (UA) Negative (Negative) Urine Ketones Trace H (Negative) Urine Blood 3+ H (Negative) Urine Nitrite Negative (Negative) Urine Bilirubin Negative (Negative) Urine Urobilinogen Negative (Negative) Ur Leukocyte Esterase 3+ H (Negative) Urine WBC (Auto) >30 H (0-5) /hpf Urine RBC (Auto) 5-10 H (0-4) /hpf U Hyaline Cast (Auto) 5-10 H (0-5) /lpf U Epithel Cells (Auto) >30 H (0-5) /lpf Urine Bacteria (Auto) 4+ H (Negative) Urine Yeast Not Reportable Nasal Screen MRSA (PCR) (Negative) Random Vancomycin (10-20) mcg/ml Ethyl Alcohol mg/dL (<10.0) mg/dl Anaplasma Smear Anaplasma Comment Babesia Smear Lyme Disease IgG Ab (Negative) Lyme Disease IgM Ab (Negative) 11/29/22 11/29/22 11/29/22 Range/Units 07:08 07:08 07:08 WBC 9.07 (4.8-10.8) K/ul RBC 3.83 L (4.70-6.10) M/uL Hgb 12.3 L (14.0-18.0) g/dl POC Hgb (14.0-18.0) g/dl Hct 33.9 L (42.0-52.0) % POC Hct (42-52) % MCV 88.5 (80.0-100.0) fL MCH 32.1 (25.0-34.0) pg MCHC 36.3 H (32.0-36.0) g/dL RDW Std Deviation 45.3 (36.4-46.3) fL RDW Coeff of Hemanth 14.1 (11.5-14.5) % Plt Count 77 L (130-400) K/uL MPV 13.5 H (9.4-12.4) fL Immature Gran % (Auto) 1.1 % Neut % (Auto) 75.6 % Lymph % (Auto) 17.9 % [place] % (Auto) 5.0 % Eos % (Auto) 0.2 % Baso % (Auto) 0.2 % Neut # (Auto) 6.86 H (1.40-6.50) K/uL Lymph # (Auto) 1.62 (1.2-3.4) K/uL [place] # (Auto) 0.45 (0.11-0.59) K/uL Eos # (Auto) 0.02 (0-0.50) K/uL Baso # (Auto) 0.02 (0-0.2) K/uL Immature Gran # (Auto) 0.10 (0.01-0.20) K/uL Platelet Estimate Decreased L (Normal) Polychromasia Echinocytes 2+ Peripher Smr Path Cons VBG pH (7.36-7.41) VBG pCO2 (38-50) mmHg VBG pO2 mmHg VBG HCO3 mmol/L VBG O2 Saturation % VBG Base Excess mEq/L POC Sodium (135-144) mmol/L Sodium 134 L (136-145) mmol/L POC Potassium (3.3-5.0) mmol/L Potassium 4.5 (3.5-5.1) mmol/L POC Chloride (101-112) mmol/L Chloride 112 H (98-107) mmol/L Carbon Dioxide 16 L (21-32) mmol/L POC Total CO2 (24-31) mmol/L Anion Gap 6 (3-11) POC Anion Gap (16-25) mmol/L POC BUN (7-18) mg/dl BUN 143 H (6-23) mg/dl Creatinine 5.38 H* D (0.6-1.4) mg/dl POC Creatinine (0.6-1.3) mg/dl Est Cr Clr Drug Dosing 11.7 Est GFR ( Amer) 10.7 ml/min Est GFR (Non-Af Amer) 9.3 ml/min BUN/Creatinine Ratio 26.6 H (10-20) Glucose 115 H (70-99(Fasting)) mg/dl POC Glucose (other) (70-99) mg/dl Lactate (0.4-2.0) mmol/L Calcium 7.5 L (8.6-10.3) mg/dl POC Ioniz Calcium Rush (1.12-1.32) mmol/l Phosphorus (2.5-4.9) mg/dl Magnesium 2.0 (1.7-2.4) mg/dl Total Bilirubin 1.1 H (0.2-1.0) mg/dl Direct Bilirubin 0.6 H (0-0.2) mg/dl AST 74 H (13-39) U/L ALT 104 H (7-52) U/L Alkaline Phosphatase 123 H (34-104) U/L Total Creatine Kinase (30-223) U/L Troponin I High Sens 20.7 H (0-20) pg/ml Total Protein 4.3 L D (6.0-8.3) gm/dl Albumin 2.1 L (3.4-5.0) gm/dl Lipase (11-82) U/L Procalcitonin (0-0.5) ng/ml Urine Color Urine Appearance (Clear) Urine pH (4.5-7.5) Ur Specific [place] (1.000-1.030) Urine Protein (Negative) Urine Glucose (UA) (Negative) Urine Ketones (Negative) Urine Blood (Negative) Urine Nitrite (Negative) Urine Bilirubin (Negative) Urine Urobilinogen (Negative) Ur Leukocyte Esterase (Negative) Urine WBC (Auto) (0-5) /hpf Urine RBC (Auto) (0-4) /hpf U Hyaline Cast (Auto) (0-5) /lpf U Epithel Cells (Auto) (0-5) /lpf Urine Bacteria (Auto) (Negative) Urine Yeast Nasal Screen MRSA (PCR) (Negative) Random Vancomycin 20.1 H (10-20) mcg/ml Ethyl Alcohol mg/dL (<10.0) mg/dl Anaplasma Smear Anaplasma Comment Babesia Smear Lyme Disease IgG Ab (Negative) Lyme Disease IgM Ab (Negative) 11/29/22 11/29/22 Range/Units 11:09 13:23 WBC (4.8-10.8) K/ul RBC (4.70-6.10) M/uL Hgb (14.0-18.0) g/dl POC Hgb (14.0-18.0) g/dl Hct (42.0-52.0) % POC Hct (42-52) % MCV (80.0-100.0) fL MCH (25.0-34.0) pg MCHC (32.0-36.0) g/dL RDW Std Deviation (36.4-46.3) fL RDW Coeff of Hemanth (11.5-14.5) % Plt Count (130-400) K/uL MPV (9.4-12.4) fL Immature Gran % (Auto) % Neut % (Auto) % Lymph % (Auto) % [place] % (Auto) % Eos % (Auto) % Baso % (Auto) % Neut # (Auto) (1.40-6.50) K/uL Lymph # (Auto) (1.2-3.4) K/uL [place] # (Auto) (0.11-0.59) K/uL Eos # (Auto) (0-0.50) K/uL Baso # (Auto) (0-0.2) K/uL Immature Gran # (Auto) (0.01-0.20) K/uL Platelet Estimate (Normal) Polychromasia Echinocytes Peripher Smr Path Cons VBG pH (7.36-7.41) VBG pCO2 (38-50) mmHg VBG pO2 mmHg VBG HCO3 mmol/L VBG O2 Saturation % VBG Base Excess mEq/L POC Sodium (135-144) mmol/L Sodium (136-145) mmol/L POC Potassium (3.3-5.0) mmol/L Potassium (3.5-5.1) mmol/L POC Chloride (101-112) mmol/L Chloride (98-107) mmol/L Carbon Dioxide (21-32) mmol/L POC Total CO2 (24-31) mmol/L Anion Gap (3-11) POC Anion Gap (16-25) mmol/L POC BUN (7-18) mg/dl BUN (6-23) mg/dl Creatinine (0.6-1.4) mg/dl POC Creatinine (0.6-1.3) mg/dl Est Cr Clr Drug Dosing Est GFR ( Amer) ml/min Est GFR (Non-Af Amer) ml/min BUN/Creatinine Ratio (10-20) Glucose (70-99(Fasting)) mg/dl POC Glucose (other) (70-99) mg/dl Lactate (0.4-2.0) mmol/L Calcium (8.6-10.3) mg/dl POC Ioniz Calcium Rush (1.12-1.32) mmol/l Phosphorus (2.5-4.9) mg/dl Magnesium (1.7-2.4) mg/dl Total Bilirubin (0.2-1.0) mg/dl Direct Bilirubin (0-0.2) mg/dl AST (13-39) U/L ALT (7-52) U/L Alkaline Phosphatase (34-104) U/L Total Creatine Kinase (30-223) U/L Troponin I High Sens 21.7 H (0-20) pg/ml Total Protein (6.0-8.3) gm/dl Albumin (3.4-5.0) gm/dl Lipase (11-82) U/L Procalcitonin (0-0.5) ng/ml Urine Color Urine Appearance (Clear) Urine pH (4.5-7.5) Ur Specific [place] (1.000-1.030) Urine Protein (Negative) Urine Glucose (UA) (Negative) Urine Ketones (Negative) Urine Blood (Negative) Urine Nitrite (Negative) Urine Bilirubin (Negative) Urine Urobilinogen (Negative) Ur Leukocyte Esterase (Negative) Urine WBC (Auto) (0-5) /hpf Urine RBC (Auto) (0-4) /hpf U Hyaline Cast (Auto) (0-5) /lpf U Epithel Cells (Auto) (0-5) /lpf Urine Bacteria (Auto) (Negative) Urine Yeast Nasal Screen MRSA (PCR) Negative (Negative) Random Vancomycin (10-20) mcg/ml Ethyl Alcohol mg/dL (<10.0) mg/dl Anaplasma Smear Anaplasma Comment Babesia Smear Lyme Disease IgG Ab (Negative) Lyme Disease IgM Ab (Negative) Diagnostic Findings Exam(s): CT ABDOMEN + PELVIS Without Contrast EXAM: CT Abdomen and Pelvis Without Intravenous Contrast CLINICAL HISTORY: Reason for exam: sepsis, hypotension. TECHNIQUE: Axial computed tomography images of the abdomen and pelvis without intravenous contrast. CTDI is 25.87 mGy and DLP is 1417.36 mGy-cm. Automated exposure control was utilized for the study. A dose lowering technique was utilized adhering to the principles of ALARA. COMPARISON: No relevant prior studies available. FINDINGS: Lung bases: Atelectasis at the lung bases. ABDOMEN: Liver: Unremarkable. Gallbladder and bile ducts: Unremarkable. No calcified stones. No ductal dilation. Pancreas: Unremarkable. No ductal dilation. Spleen: Unremarkable. No splenomegaly. Adrenals: Unremarkable. No mass. Kidneys and ureters: See below. Stomach and bowel: Unremarkable. No acute diverticulitis. No small bowel obstruction. No free intraperitoneal air. PELVIS: Appendix: Normal appendix. 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 Mild fullness of the LEFT renal collecting system, without obstructing stone. Bilateral perinephric stranding, greater on the LEFT. No renal stones. Reproductive: Unremarkable as visualized. ABDOMEN and PELVIS: Intraperitoneal space: Unremarkable. No free air. No significant fluid collection. Bones/joints: Degenerative changes of the spine. No acute fracture. No dislocation. Soft tissues: Unremarkable. Vasculature: Atherosclerotic changes of the aorta. No abdominal aortic aneurysm. Lymph nodes: Unremarkable. No enlarged lymph nodes. IMPRESSION: 1. No acute diverticulitis. No small bowel obstruction. No free intraperitoneal air. 2. Normal appendix. 3. 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 Mild fullness of the LEFT renal collecting system, without obstructing stone. Bilateral perinephric stranding, greater on the LEFT. No renal stones.
[2022-11-29] MEDS ORDERED: CEFEPIME 500 MG in SYRINGE 0 ML IV SCH (20:00)
[2022-11-29] MEDS: ATORVASTATIN 20 MG TAB PO SCH (20:49)
[2022-11-29] MEDS: MELATONIN 3 MG TAB PO PRN (23:27)
[2022-11-30] MEDS: SODIUM BICARBONATE 8.4% 75 MEQ in SODIUM CHLORIDE 0.45 % 1,000 ML IV SCH ×3 (00:23→20:59)
[2022-11-30] MEDS: clonazePAM 0.5 MG TAB PO PRN (02:59)
[2022-11-30] MEDS: PANTOprazole 40 MG TAB PO SCH (06:21)
[2022-11-30 07:50] LABS: BUN Creatinine Ratio 30.8 (10-20); Calcium 7.6 mg/dl (8.6-10.3); Creatinine Clr Calc Pharmacy 16.4 ml/min; Est GFR (African American) 16.2 ml/min; Magnesium 1.8 mg/dl (1.7-2.4); Phosphorus 3.6 mg/dl (2.5-4.9); Potassium 4.2 mmol/L (3.5-5.1)
[2022-11-30] MEDS: FERROUS SULFATE 325 MG TAB PO SCH (08:35)
[2022-11-30] MEDS: CHOLECALCIFEROL 400 UNITS 10 MCG TAB PO SCH (08:35)
[2022-11-30 09:33] LABS: Hematocrit (blood only) 32.1 % (42.0-52.0); Hemoglobin 11.5 g/dl (14.0-18.0); Mean Corpuscular Hemoglobin 32.7 pg (25.0-34.0); Mean Corpuscular Hgb Conc 35.8 g/dL (32.0-36.0); Mean Corpuscular Volume 91.2 fL (80.0-100.0); Mean Platelet Volume 12.2 fL (9.4-12.4); Platelet Count 83 K/uL (130-400); RDW Coefficient of Variation 14.2 % (11.5-14.5); RDW Standard Deviation 47.4 fL (36.4-46.3); Red Blood Count 3.52 M/uL (4.70-6.10); White Blood Count 8.45 K/ul (4.8-10.8)
[2022-11-30] MEDS: DOXYCYCLINE HYCLATE 100 MG in DEXTROSE 5% 100 ML IV SCH ×2 (11:20→21:05)
--- NOTE | 2022-11-30 14:17 | Nephrology Progress Note ---
Date of Service November 30, 2022 Assessment & Plan Admission and Anticipated Discharge Date Admission Date: November 28, 2022 Subjective Assessment and plan (1) Acute renal failure: Severe acute renal failure with a creatinine 6+ up from his baseline of 1.3 six months ago. He is rapidly improving as creatinine has come down to 3+ very fast. With very good urine output. Etiology is volume depletion/ATN in the setting of sepsis. But because he is improving so fast he will not need dialysis. No further work-up needed for the etiology. Chloride is high bicarb is low with the use of normal saline so we will continue half-normal saline with 75 bicarb and run at 100 mill per hour. (2) Sepsis: Blood pressure is not low anymore. He is on broad-spectrum antibiotic S--no new issues. Making urine. Vital signs stable renal function improving rapidly. Physical Exam Physical Exam: Awake and alert opens eyes but then goes back to sleep right away. Unable to obtain meaningful history from the patient Constitutional: No respiratory distress Neck: Supple no JVD Respiratory: Bilateral decreased breath sound but very poor inspiratory effort from the patient Cardiovascular: Regular rate and rhythm. No murmur rubs or gallop no edema Gastrointestinal (Abdomen): Soft and nontender. He has an ileal conduit Skin: No rash noted Neurologic: Awake alert oriented does answer few questions. Results & Data Vital Signs (Past 12 Hours) Vital Signs Temp Pulse Pulse Resp BP Pulse Ox O2 Del Method 11/30/22 10:27 36.3 C L 111 H 22 104/58 L 94 Room Air 11/30/22 07:20 Room Air 11/30/22 07:20 96 H 11/30/22 08:19 107 H 11/30/22 07:57 36.5 C 140 H 24 118/76 93 Room Air 11/30/22 03:26 36.7 C 99 H 24 111/64 93 Room Air
--- NOTE | 2022-11-30 16:14 | Hospitalist Progress Note ---
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 Patient was also noted to be delirious and combative per EMS note. He is being managed for the following: Severe sepsis POA: At admission lactate 2.1, WBC 11.18 K, temperature 37.6 C, heart rate in 100s, respiratory rate in 20s, blood pressure low normal. Likely secondary to complicated UTI Anaplasmosis Catheter associated UTI possible pyelonephritis Metabolic encephalopathy secondary to sepsis Recurrent falls/scalp laceration: wound care consult, gen sx for laceration repair --appreciate recommendation. Patient noted to be not ambulating well and also noted to be delirious and combative prior to arrival. History of bladder cancer s/p cystectomy and ileal conduit in 2006. Admitting UA suggestive of UTI, patient has ileal conduit connected to urinary bladder. Admitting imagings: CXR/C-spine CT/head CT/CT chest with no acute findings. CTAP with status post cystectomy with ileal conduit and right lower quadrant ileostomy. Mild fullness of the left renal collecting system, without obstructing stone. Bilateral perinephric stranding, greater on the left. No renal stones. Status post sepsis protocol fluids Follow admitting blood culture and urine culture. Blood culture pending. He has started on Vanco cefepime and doxycycline 11/28, drop vanc 11/29, change cefepime to Rocephin 11/30. Urine culture with pansensitive E. coli. Mentation back to baseline, reports not smoking tobacco or drinking alcohol in the last few months. Blood pressure medications on hold due to soft blood pressure, resume as able. Acute kidney injury on chronic kidney stage III: Baseline creatinine of 1.3. Admitting creatinine of 6.5, CT abdomen pelvis as above, getting IV fluids, creatinine trending down. Nephrology on board, appreciate recommendation. Currently on half-normal saline and bicarb at 100 mL an hour. BMP in AM. Likely demand ischemia: Troponin flat trended, EKG with no acute ST or T changes, patient with no chest pain. Likely secondary to acute illness. Transaminitis: Likely secondary to sepsis, trending down, labs in AM. Thrombocytopenia: Likely secondary to sepsis, improving, will follow, labs in AM. Hyponatremia: Resolved. DVT prophylaxis: Heparin subcu Disposition: PT/OT, expect discharge once renal function improves. CODE STATUS DNR/DNI Admission and Anticipated Discharge Date Admission Date: November 28, 2022 Subjective Patient seen and examined at bedside as a follow-up of complicated UTI, anaplasmosis, acute kidney injury on chronic kidney stage III Patient was lying semiupright in bed, on room air, not in distress, oriented, denies any headache or dizziness, reports scrotal pain improving, denies any chest pain or palpitation abdominal pain. Reports eating okay and moving bowels okay. Physical Exam Physical Exam: GENERAL: Alert and oriented x3. NAD, on RA. Appears weak/ill/frail. HEENT: No pallor, no icterus. Pupils equal, round and reactive to light. Oral mucosa moist. NECK: No JVD, no neck masses. HEART: S1 and S2 heard. Regular rate and rhythm. No murmur, no gallop. RESPIRATORY SYSTEM: Normal AP diameter. No accessory muscle use. No wheezing, no crackles. ABDOMEN: Soft, bowel sounds present, nontender, no distention. CENTRAL NERVOUS SYSTEM: No facial droop. Speech is clear. Obeys simple commands. Moves extremities. EXTREMITIES: trace ble edema, no erythema seen. erythema noted over scrotum (likely 2/2 urinary leak/excoriation) --improving erythema and pain. Results & Data Results & Data Vital Signs (Past 12 Hours) Vital Signs Temp Pulse Pulse Resp BP Pulse Ox O2 Del Method 11/30/22 15:38 95 H 11/30/22 10:27 36.3 C L 111 H 22 104/58 L 94 Room Air 11/30/22 07:20 Room Air 11/30/22 07:20 96 H 11/30/22 08:19 107 H 11/30/22 07:57 36.5 C 140 H 24 118/76 93 Room Air (2) Sepsis Acute renal failure type: unspecified Sepsis acute organ dysfunction status: with acute organ dysfunction Sepsis type: sepsis due to unspecified organism Severe sepsis acute organ dysfunction type: acute renal failure Severe sepsis shock status: with septic shock Qualified Code(s): A41.9 - Sepsis, unspecified organism; R65.21 - Severe sepsis with septic shock; N17.9 - Acute kidney failure, unspecified
[2022-11-30] MEDS: clonazePAM 1 MG TAB PO PRN (20:58)
[2022-11-30] MEDS: HEPARIN SOD 5,000 UNIT/0.5 ML VIAL SQ SCH (20:59)
[2022-11-30] MEDS: MELATONIN 3 MG TAB PO PRN (20:59)
[2022-11-30] MEDS: ATORVASTATIN 20 MG TAB PO SCH (20:59)
[2022-11-30] MEDS: cefTRIAXone SODIUM 2,000 MG in DEXTROSE 5% 50 ML IV SCH (20:59)
[2022-12-01] MEDS: PANTOprazole 40 MG TAB PO SCH (06:00)
[2022-12-01] MEDS: SODIUM BICARBONATE 8.4% 75 MEQ in SODIUM CHLORIDE 0.45 % 1,000 ML IV SCH ×2 (06:05→16:40)
[2022-12-01] MEDS: CHOLECALCIFEROL 400 UNITS 10 MCG TAB PO SCH (08:03)
[2022-12-01] MEDS: ATENOLOL 50 MG TABLET PO SCH (08:03)
[2022-12-01] MEDS: HEPARIN SOD 5,000 UNIT/0.5 ML VIAL SQ SCH ×2 (08:03→19:37)
[2022-12-01] MEDS: FERROUS SULFATE 325 MG TAB PO SCH (08:03)
[2022-12-01 08:43] LABS: Hematocrit (blood only) 32.4 % (42.0-52.0); Hemoglobin 11.6 g/dl (14.0-18.0); Mean Corpuscular Hgb Conc 35.8 g/dL (32.0-36.0); Mean Corpuscular Volume 89.5 fL (80.0-100.0); Mean Platelet Volume 12.7 fL (9.4-12.4); Platelet Count 99 K/uL (130-400); RDW Coefficient of Variation 13.5 % (11.5-14.5); RDW Standard Deviation 44.8 fL (36.4-46.3); Red Blood Count 3.62 M/uL (4.70-6.10); White Blood Count 9.35 K/ul (4.8-10.8)
[2022-12-01 09:08] LABS: Albumin Globulin Ratio 0.8 (0.9-2); Albumin Level 2.1 gm/dl (3.4-5.0); Bilirubin,Total 0.8 mg/dl (0.2-1.0); Calcium 7.7 mg/dl (8.6-10.3); Creatinine Clr Calc Pharmacy 29.1 ml/min; Est GFR (African American) 29.2 ml/min; Est GFR (Non-African American) 25.2 ml/min; Globulin 2.5 gm/dl (2.5-4.0); Potassium 4.1 mmol/L (3.5-5.1); Total Protein 4.6 gm/dl (6.0-8.3)
[2022-12-01] MEDS: DOXYCYCLINE HYCLATE 100 MG in DEXTROSE 5% 100 ML IV SCH ×2 (10:09→20:08)
[2022-12-01] MEDS: ACETAMINOPHEN 325 MG TAB PO PRN (16:34)
--- NOTE | 2022-12-01 16:56 | Hospitalist Progress Note ---
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 Patient was also noted to be delirious and combative per EMS note. He is being managed for the following: Severe sepsis POA: At admission lactate 2.1, WBC 11.18 K, temperature 37.6 C, heart rate in 100s, respiratory rate in 20s, blood pressure low normal. Likely secondary to complicated UTI Anaplasmosis Catheter associated UTI possible pyelonephritis Metabolic encephalopathy secondary to sepsis Recurrent falls/scalp laceration: wound care consult, gen sx for laceration repair --appreciate recommendation. Patient noted to be not ambulating well and also noted to be delirious and combative prior to arrival. History of bladder cancer s/p cystectomy and ileal conduit in 2006. Admitting UA suggestive of UTI, patient has ileal conduit connected to urinary bladder. Admitting imagings: CXR/C-spine CT/head CT/CT chest with no acute findings. CTAP with status post cystectomy with ileal conduit and right lower quadrant ileostomy. Mild fullness of the left renal collecting system, without obstructing stone. Bilateral perinephric stranding, greater on the left. No renal stones. Status post sepsis protocol fluids Follow admitting blood culture and urine culture. Blood culture pending. He has started on Vanco cefepime and doxycycline 11/28, drop vanc 11/29, change cefepime to Rocephin 11/30. Urine culture with pansensitive E. coli. Mentation back to baseline, reports not smoking tobacco or drinking alcohol in the last few months. Blood pressure medications on hold due to soft blood pressure, resume as able. Acute kidney injury on chronic kidney stage III: Baseline creatinine of 1.3. Admitting creatinine of 6.5, CT abdomen pelvis as above, getting IV fluids, creatinine trending down. Nephrology on board, appreciate recommendation. Currently on half-normal saline and bicarb at 100 mL an hour. BMP in AM. Likely demand ischemia: Troponin flat trended, EKG with no acute ST or T changes, patient with no chest pain. Likely secondary to acute illness. Transaminitis: Likely secondary to sepsis, trending down, labs in AM. Thrombocytopenia: Likely secondary to sepsis, improving, will follow, labs in AM. Hyponatremia: Resolved. DVT prophylaxis: Heparin subcu Disposition: PT/OT, expect discharge once renal function improves. CODE STATUS DNR/DNI Admission and Anticipated Discharge Date Admission Date: November 28, 2022 Subjective Patient seen and examined at bedside as a follow-up of complicated UTI, anaplasmosis, acute kidney injury on chronic kidney stage III Patient was lying semiupright in bed, on room air, not in distress, oriented, denies any headache or dizziness, reports no scrotal pain, denies any chest pain or palpitation abdominal pain. Reports eating okay and moving bowels okay. Physical Exam Physical Exam: GENERAL: Alert and oriented x3. NAD, on RA. Appears weak/ill/frail. HEENT: No pallor, no icterus. Pupils equal, round and reactive to light. Oral mucosa moist. NECK: No JVD, no neck masses. HEART: S1 and S2 heard. Regular rate and rhythm. No murmur, no gallop. RESPIRATORY SYSTEM: Normal AP diameter. No accessory muscle use. No wheezing, no crackles. ABDOMEN: Soft, bowel sounds present, nontender, no distention. CENTRAL NERVOUS SYSTEM: No facial droop. Speech is clear. Obeys simple commands. Moves extremities. EXTREMITIES: trace ble edema, no erythema seen. erythema noted over scrotum (likely 2/2 urinary leak/excoriation) --improving erythema and pain. Results & Data Results & Data Vital Signs (Past 12 Hours) Vital Signs Temp Pulse Pulse Resp BP Pulse Ox O2 Del Method 12/01/22 15:28 74 12/01/22 11:11 36.8 C 80 18 130/78 97 Room Air 12/01/22 07:05 36.7 C 98 H 18 135/82 94 Room Air 12/01/22 07:16 Room Air 12/01/22 07:16 89 (2) Sepsis Acute renal failure type: unspecified Sepsis acute organ dysfunction status: with acute organ dysfunction Sepsis type: sepsis due to unspecified organism Severe sepsis acute organ dysfunction type: acute renal failure Severe sepsis shock status: with septic shock Qualified Code(s): A41.9 - Sepsis, unspecified organism; R65.21 - Severe sepsis with septic shock; N17.9 - Acute kidney failure, unspecified
[2022-12-01] MEDS: clonazePAM 0.5 MG TAB PO PRN (18:12)
[2022-12-01] MEDS: ATORVASTATIN 20 MG TAB PO SCH (19:37)
[2022-12-01] MEDS: cefTRIAXone SODIUM 2,000 MG in DEXTROSE 5% 50 ML IV SCH (19:40)
[2022-12-01] MEDS: MELATONIN 3 MG TAB PO PRN (22:21)
[2022-12-01] MEDS: clonazePAM 1 MG TAB PO PRN (22:21)
[2022-12-02 01:57] LABS: Babesia microti DNA Not Detected (Not Detected)
[2022-12-02] MEDS: SODIUM BICARBONATE 8.4% 75 MEQ in SODIUM CHLORIDE 0.45 % 1,000 ML IV SCH (03:07)
[2022-12-02] MEDS: PANTOprazole 40 MG TAB PO SCH (05:46)
[2022-12-02] MEDS: ATENOLOL 50 MG TABLET PO SCH (07:56)
[2022-12-02] MEDS: CHOLECALCIFEROL 400 UNITS 10 MCG TAB PO SCH (07:56)
[2022-12-02] MEDS: amLODIPine BESYLATE 5 MG TAB PO SCH (07:56)
[2022-12-02] MEDS: FERROUS SULFATE 325 MG TAB PO SCH (07:57)
[2022-12-02] MEDS: HEPARIN SOD 5,000 UNIT/0.5 ML VIAL SQ SCH ×2 (07:57→20:32)
[2022-12-02 08:26] LABS: Hematocrit (blood only) 33.4 % (42.0-52.0); Hemoglobin 11.7 g/dl (14.0-18.0); Mean Corpuscular Hemoglobin 32.4 pg (25.0-34.0); Mean Corpuscular Volume 92.5 fL (80.0-100.0); Mean Platelet Volume 12.2 fL (9.4-12.4); Platelet Count 125 K/uL (130-400); RDW Coefficient of Variation 14.3 % (11.5-14.5); RDW Standard Deviation 48.2 fL (36.4-46.3); Red Blood Count 3.61 M/uL (4.70-6.10)
[2022-12-02 09:04] LABS: Albumin Globulin Ratio 0.9 (0.9-2); Albumin Level 2.3 gm/dl (3.4-5.0); BUN Creatinine Ratio 32.9 (10-20); Bilirubin,Total 0.8 mg/dl (0.2-1.0); Calcium 7.6 mg/dl (8.6-10.3); Creatinine Clr Calc Pharmacy 41.2 ml/min; Est GFR (African American) 44.1 ml/min; Est GFR (Non-African American) 38.1 ml/min; Globulin 2.7 gm/dl (2.5-4.0); Magnesium 1.1 mg/dl (1.7-2.4); Phosphorus 2.6 mg/dl (2.5-4.9); Potassium 3.7 mmol/L (3.5-5.1)
--- NOTE | 2022-12-02 09:24 | Nephrology Progress Note ---
Date of Service December 02, 2022 Assessment & Plan (1) Acute renal failure: Plan: Severe acute renal failure with a creatinine 6+ up from his baseline of 1.3 six months ago. -Renal functions have improved,Metabolin acidosis resolved , UOP continues to be good. - D/C bicarbonate drip, start on Isolyte P 75 mls /hr-- for 1 day. (2) Sepsis: Plan: Blood pressure is not low anymore. He is on broad-spectrum antibiotic Admission and Anticipated Discharge Date Admission Date: November 28, 2022 Subjective Seen for acute kidney injury on chronic kidney stage III Comfortable, on room air, not in distress, oriented. Review of Systems Review of Systems: All systems reviewed & are unremarkable except as noted in HPI & below Physical Exam Physical Exam: GENERAL: Alert and oriented x3. NAD, on RA. Appears weak/ill/frail. HEENT: No pallor, no icterus. Oral mucosa moist. NECK: No JVD, no neck masses. HEART: S1 and S2 heard. Regular rate and rhythm. No murmur, no gallop. RESPIRATORY SYSTEM:. No wheezing, no crackles. ABDOMEN: Soft, bowel sounds present, nontender, no distention. CENTRAL NERVOUS SYSTEM: Obeys simple commands. Moves extremities. EXTREMITIES: trace ble edema, no erythema seen. Results & Data Vital Signs (Past 12 Hours) Vital Signs Temp Pulse Pulse Resp BP Pulse Ox O2 Del Method 12/02/22 07:20 Room Air 12/02/22 07:20 79 12/02/22 07:15 36.6 C 80 18 133/71 95 Room Air 12/02/22 03:19 36.4 C L 79 18 111/63 94 Room Air 12/01/22 23:32 79 12/01/22 22:51 36.9 C 79 18 134/70 95 Room Air Laboratory Results 12/02/22 07:53 12/02/22 07:53 (2) Sepsis Acute renal failure type: unspecified Sepsis acute organ dysfunction status: with acute organ dysfunction Sepsis type: sepsis due to unspecified organism Severe sepsis acute organ dysfunction type: acute renal failure Severe sepsis shock status: with septic shock Qualified Code(s): A41.9 - Sepsis, unspecified organism; R65.21 - Severe sepsis with septic shock; N17.9 - Acute kidney failure, unspecified
[2022-12-02] MEDS: DOXYCYCLINE HYCLATE 100 MG in DEXTROSE 5% 100 ML IV SCH ×2 (10:00→21:11)
[2022-12-02] MEDS: PLASMA-LYTE A 1,000 ML IV SCH ×2 (10:00→23:39)
[2022-12-02] MEDS: LIDOCAINE 5% 1 PATCH TD SCH (11:31)
[2022-12-02] MEDS: ACETAMINOPHEN 325 MG TAB PO PRN (12:17)
--- NOTE | 2022-12-02 14:59 | Hospitalist Progress Note ---
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 Patient was also noted to be delirious and combative per EMS note. He is being managed for the following: Severe sepsis POA: At admission lactate 2.1, WBC 11.18 K, temperature 37.6 C, heart rate in 100s, respiratory rate in 20s, blood pressure low normal. Likely secondary to complicated UTI Anaplasmosis Complicated UTI/ possible pyelonephritis Metabolic encephalopathy secondary to sepsis Recurrent falls/scalp laceration: wound care consult, gen sx for laceration repair --appreciate recommendation. Patient noted to be not ambulating well and also noted to be delirious and combative prior to arrival. History of bladder cancer s/p cystectomy and ileal conduit in 2006. Admitting UA suggestive of UTI, patient has ileal conduit connected to urinary bladder. Admitting imagings: CXR/C-spine CT/head CT/CT chest with no acute findings. CTAP with status post cystectomy with ileal conduit and right lower quadrant ileostomy. Mild fullness of the left renal collecting system, without obstruc ting stone. Bilateral perinephric stranding, greater on the left. No renal stones. Status post sepsis protocol fluids Follow admitting blood culture and urine culture. Blood culture pending. He has started on Vanco cefepime and doxycycline 11/28, dropped vanc 11/29, change cefepime to Rocephin 11/30. Urine culture with pansensitive E. coli. Mentation back to baseline, reports not smoking tobacco or drinking alcohol in the last few months. Blood pressure medications on hold due to soft blood pressure, resume as able. Acute kidney injury on chronic kidney stage III: Baseline creatinine of 1.3. Admitting creatinine of 6.5, CT abdomen pelvis as above, getting IV fluids, creatinine trending down. Nephrology on board, appreciate recommendation. BMP in AM. Pressure ulcers of sacral region and scrotum, stage 1, with excoriation: Exacerbated by urine leak from his ileal conduit. Wound care on board. Improving erythema and pain. Likely demand ischemia: Troponin flat trended, EKG with no acute ST or T changes, patient with no chest pain. Likely secondary to acute illness. Transaminitis: Likely secondary to sepsis, trending down, labs in AM. Thrombocytopenia: Likely secondary to sepsis, improving, will follow, labs in AM. Hyponatremia: Resolved. DVT prophylaxis: Heparin subcu Disposition: PT/OT, expect discharge once renal function improves. likely rehab. CODE STATUS DNR/DNI Admission and Anticipated Discharge Date Admission Date: November 28, 2022 Subjective Patient seen and examined at bedside as a follow-up of complicated UTI, anaplasmosis, acute kidney injury on chronic kidney stage III Patient was lying semiupright in bed, on room air, not in distress, oriented, denies any headache or dizziness, reports no scrotal pain, denies any chest pain or palpitation abdominal pain. Reports eating okay and moving bowels okay. Reports chronic back pain, will use lidocaine patch. Physical Exam Physical Exam: GENERAL: Alert and oriented x3. NAD, on RA. Appears weak/ill/frail. HEENT: No pallor, no icterus. Pupils equal, round and reactive to light. Oral mucosa moist. NECK: No JVD, no neck masses. HEART: S1 and S2 heard. Regular rate and rhythm. No murmur, no gallop. RESPIRATORY SYSTEM: Normal AP diameter. No accessory muscle use. No wheezing, no crackles. ABDOMEN: Soft, bowel sounds present, nontender, no distention. CENTRAL NERVOUS SYSTEM: No facial droop. Speech is clear. Obeys simple commands. Moves extremities. EXTREMITIES: trace ble edema, no erythema seen. erythema noted over scrotum (likely 2/2 urinary leak/excoriation) --improving erythema and pain. Results & Data Results & Data Vital Signs (Past 12 Hours) Vital Signs Temp Pulse Pulse Resp BP Pulse Ox O2 Del Method 12/02/22 11:12 36.7 C 82 18 136/76 92 Room Air 12/02/22 07:20 Room Air 12/02/22 07:20 79 12/02/22 07:15 36.6 C 80 18 133/71 95 Room Air 12/02/22 03:19 36.4 C L 79 18 111/63 94 Room Air (2) Sepsis Acute renal failure type: unspecified Sepsis acute organ dysfunction status: with acute organ dysfunction Sepsis type: sepsis due to unspecified organism Severe sepsis acute organ dysfunction type: acute renal failure Severe sepsis shock status: with septic shock Qualified Code(s): A41.9 - Sepsis, unspecified organism; R65.21 - Severe sepsis with septic shock; N17.9 - Acute kidney failure, unspecified
[2022-12-02] MEDS: cefTRIAXone SODIUM 2,000 MG in DEXTROSE 5% 50 ML IV SCH (20:31)
[2022-12-02] MEDS: ATORVASTATIN 20 MG TAB PO SCH (20:32)
[2022-12-02] MEDS: clonazePAM 1 MG TAB PO PRN (20:41)
[2022-12-02] MEDS: MELATONIN 3 MG TAB PO PRN (20:41)
[2022-12-03] MEDS: amLODIPine BESYLATE 5 MG TAB PO SCH (08:10)
[2022-12-03] MEDS: ATENOLOL 50 MG TABLET PO SCH (08:10)
[2022-12-03] MEDS: PANTOprazole 40 MG TAB PO SCH (08:10)
[2022-12-03] MEDS: FERROUS SULFATE 325 MG TAB PO SCH (08:11)
[2022-12-03] MEDS: CHOLECALCIFEROL 400 UNITS 10 MCG TAB PO SCH (08:11)
[2022-12-03] MEDS: LIDOCAINE 5% 1 PATCH TD SCH (08:11)
[2022-12-03] MEDS: HEPARIN SOD 5,000 UNIT/0.5 ML VIAL SQ SCH ×2 (08:11→20:19)
[2022-12-03 09:54] LABS: Albumin Globulin Ratio 0.9 (0.9-2); Albumin Level 2.2 gm/dl (3.4-5.0); BUN Creatinine Ratio 26.2 (10-20); Bilirubin,Total 0.7 mg/dl (0.2-1.0); Calcium 7.4 mg/dl (8.6-10.3); Creatinine Clr Calc Pharmacy 53.1 ml/min; Est GFR (African American) 59.7 ml/min; Est GFR (Non-African American) 51.5 ml/min; Globulin 2.5 gm/dl (2.5-4.0); Magnesium 1.1 mg/dl (1.7-2.4); Phosphorus 2.9 mg/dl (2.5-4.9); Total Protein 4.7 gm/dl (6.0-8.3)
[2022-12-03] MEDS: DOXYCYCLINE HYCLATE 100 MG in DEXTROSE 5% 100 ML IV SCH ×2 (10:05→22:03)
[2022-12-03] MEDS: PLASMA-LYTE A 1,000 ML IV SCH (12:19)
--- NOTE | 2022-12-03 14:01 | Nephrology Progress Note ---
Date of Service December 03, 2022 Assessment & Plan Admission and Anticipated Discharge Date Admission Date: November 28, 2022 Subjective [facility], [id number] Nephrology Progress Note Signed Patient:EM CONCEPCION Admit Date:11/28/22 MR#:[id number] Att Phy:Abbie Jackson MD Acct ID:[id number] [place] Phy:Demarco Guallpa MD Date:1940 Fam Phy: Age:81 Location:2S Sex:M Room/Bed:[facility] [place] cc: ~ *NOTICE TO RECEIVING [employer]/AGENCY This information is strictly Confidential and protected under [place] law. [place] law prohibits you from making any further disclosure of this information unless further disclosure is expressly permitted by the written consent of the person to whom it pertains or is authorized by law. A general authorization for the release of medical or other information is not sufficient for this purpose. Hospital accepts no responsibility if the information is made available to any other person, INCLUDING THE PATIENT. Assessment & Plan (1) Acute renal failure: Plan: Severe acute renal failure with a creatinine 6+ up from his baseline of 1.3 six months ago. Renal functions have improved, Metabolic acidosis resolved , UOP continues to be good. Creat back to baseline Can stop iv fluid now. Will sign off. (2) Sepsis: Plan: Blood pressure is not low anymore. He is on broad-spectrum antibiotic Subjective Seen for acute kidney injury on chronic kidney stage III Comfortable, on room air, not in distress, oriented. Review of Systems Review of Systems: All systems reviewed & are unremarkable except as noted in HPI & below Physical Exam Physical Exam: GENERAL: Alert and oriented x3. NAD, on RA. Appears weak/ill/frail. HEENT: No pallor, no icterus. Oral mucosa moist. NECK: No JVD, no neck masses. HEART: S1 and S2 heard. Regular rate and rhythm. No murmur, no gallop. RESPIRATORY SYSTEM:. No wheezing, no crackles. ABDOMEN: Soft, bowel sounds present, nontender, no distention. CENTRAL NERVOUS SYSTEM: Obeys simple commands. Moves extremities. EXTREMITIES: trace ble edema, no erythema seen. Results & Data Vital Signs (Past 12 Hours) Vital Signs Temp Pulse Pulse Pulse Resp BP BP 12/03/22 11:30 36.8 C 75 16 144/72 H 12/03/22 07:30 12/03/22 07:30 80 12/03/22 08:00 77 12/03/22 07:32 36.5 C 56 L 18 159/81 H 12/03/22 03:34 36.6 C 78 17 147/74 H Pulse Ox O2 Del Method 12/03/22 11:30 94 Room Air 12/03/22 07:30 Room Air 12/03/22 07:30 12/03/22 08:00 12/03/22 07:32 94 Room Air 12/03/22 03:34 95 Room Air
--- NOTE | 2022-12-03 17:13 | Hospitalist Progress Note ---
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 Patient was also noted to be delirious and combative per EMS note. He is being managed for the following: Severe sepsis POA: At admission lactate 2.1, WBC 11.18 K, temperature 37.6 C, heart rate in 100s, respiratory rate in 20s, blood pressure low normal. Likely secondary to complicated UTI Anaplasmosis Catheter associated UTI possible pyelonephritis Metabolic encephalopathy secondary to sepsis Recurrent falls/scalp laceration: wound care consult, gen sx for laceration repair --appreciate recommendation. Scalp laceration healing well. No signs of infection. Patient noted to be not ambulating well and also noted to be delirious and combative prior to arrival. History of bladder cancer s/p cystectomy and ileal conduit in 2006. Admitting UA suggestive of UTI, patient has ileal conduit connected to urinary bladder. Admitting imagings: CXR/C-spine CT/head CT/CT chest with no acute findings. CTAP with status post cystectomy with ileal conduit and right lower quadrant ileostomy. Mild fullness of the left renal collecting system, without obstructing stone. Bilateral perinephric stranding, greater on the left. No renal stones. Status post sepsis protocol fluids Follow admitting blood culture and urine culture. Blood culture pending. He has started on Vanco cefepime and doxycycline 11/28, drop vanc 11/29, change cefepime to Rocephin 11/30. Urine culture with pansensitive E. coli. Mentation back to baseline, reports not smoking tobacco or drinking alcohol in the last few months. Acute kidney injury on chronic kidney stage III: Baseline creatinine of 1.3. Admitting creatinine of 6.5, CT abdomen pelvis as above, status post IV fluids, creatinine back to normal. Likely demand ischemia: Troponin flat trended, EKG with no acute ST or T changes, patient with no chest pain. Likely secondary to acute illness. Transaminitis: Likely secondary to sepsis, nicely trended down. Thrombocytopenia: Likely secondary to sepsis, improving, will follow, labs in AM. Hyponatremia: Resolved. DVT prophylaxis: Heparin subcu Disposition: PT/OT, awaiting placement. CODE STATUS DNR/DNI Admission and Anticipated Discharge Date Admission Date: November 28, 2022 Subjective Patient seen and examined at bedside as a follow-up of complicated UTI, anaplasmosis, acute kidney injury on chronic kidney stage III Patient was lying semiupright in bed, on room air, not in distress, oriented, denies any headache or dizziness, reports no scrotal pain, denies any chest pain or palpitation abdominal pain. Reports eating okay and moving bowels okay. Reports chronic back pain and likes lidocaine patch as it is helping. Physical Exam Physical Exam: GENERAL: Alert and oriented x3. NAD, on RA. Appears weak/ill/frail. HEENT: No pallor, no icterus. Pupils equal, round and reactive to light. Oral mucosa moist. NECK: No JVD, no neck masses. HEART: S1 and S2 heard. Regular rate and rhythm. No murmur, no gallop. RESPIRATORY SYSTEM: Normal AP diameter. No accessory muscle use. No wheezing, no crackles. ABDOMEN: Soft, bowel sounds present, nontender, no distention. CENTRAL NERVOUS SYSTEM: No facial droop. Speech is clear. Obeys simple commands. Moves extremities. EXTREMITIES: trace ble edema, no erythema seen. erythema noted over scrotum (likely 2/2 urinary leak/excoriation) --improving erythema and pain. Results & Data Results & Data Vital Signs (Past 12 Hours) Vital Signs Temp Pulse Pulse Pulse Resp BP BP 12/03/22 15:12 73 12/03/22 15:07 36.6 C 76 18 138/76 12/03/22 11:30 36.8 C 75 16 144/72 H 12/03/22 07:30 12/03/22 07:30 80 12/03/22 08:00 77 12/03/22 07:32 36.5 C 56 L 18 159/81 H Pulse Ox O2 Del Method 12/03/22 15:12 12/03/22 15:07 95 Room Air 12/03/22 11:30 94 Room Air 12/03/22 07:30 Room Air 12/03/22 07:30 12/03/22 08:00 12/03/22 07:32 94 Room Air (2) Sepsis Acute renal failure type: unspecified Sepsis acute organ dysfunction status: with acute organ dysfunction Sepsis type: sepsis due to unspecified organism Severe sepsis acute organ dysfunction type: acute renal failure Severe sepsis shock status: with septic shock Qualified Code(s): A41.9 - Sepsis, unspecified organism; R65.21 - Severe sepsis with septic shock; N17.9 - Acute kidney failure, unspecified
[2022-12-03] MEDS: MAGNESIUM SULFATE / D5W 1 GM/100 ML BAG IV SCH ×3 (17:33→22:03)
[2022-12-03] MEDS: ACETAMINOPHEN 325 MG TAB PO PRN (20:18)
[2022-12-03] MEDS: MAGNESIUM OXIDE 400 MG TAB PO SCH (20:19)
[2022-12-03] MEDS: ATORVASTATIN 20 MG TAB PO SCH (20:20)
[2022-12-03] MEDS: clonazePAM 1 MG TAB PO PRN (20:28)
[2022-12-03] MEDS: cefTRIAXone SODIUM 2,000 MG in DEXTROSE 5% 50 ML IV SCH (21:15)
[2022-12-04] MEDS: PANTOprazole 40 MG TAB PO SCH (06:21)
[2022-12-04 07:30] LABS: Hematocrit (blood only) 32.7 % (42.0-52.0); Hemoglobin 11.2 g/dl (14.0-18.0); Mean Corpuscular Hemoglobin 32.3 pg (25.0-34.0); Mean Corpuscular Hgb Conc 34.3 g/dL (32.0-36.0); Mean Corpuscular Volume 94.2 fL (80.0-100.0); Mean Platelet Volume 10.8 fL (9.4-12.4); Platelet Count 163 K/uL (130-400); RDW Coefficient of Variation 14.4 % (11.5-14.5); RDW Standard Deviation 49.2 fL (36.4-46.3); Red Blood Count 3.47 M/uL (4.70-6.10); White Blood Count 8.12 K/ul (4.8-10.8)
[2022-12-04 07:45] LABS: BUN Creatinine Ratio 16.4 (10-20); Calcium 7.7 mg/dl (8.6-10.3); Creatinine Clr Calc Pharmacy 54.1 ml/min; Est GFR (African American) 68.6 ml/min; Est GFR (Non-African American) 59.1 ml/min; Magnesium 1.6 mg/dl (1.7-2.4); Phosphorus 2.5 mg/dl (2.5-4.9); Potassium 4.1 mmol/L (3.5-5.1)
[2022-12-04] MEDS: MAGNESIUM SULFATE / D5W 1 GM/100 ML BAG IV SCH ×2 (08:23→10:13)
[2022-12-04] MEDS: FERROUS SULFATE 325 MG TAB PO SCH (08:26)
[2022-12-04] MEDS: ATENOLOL 50 MG TABLET PO SCH (08:26)
[2022-12-04] MEDS: MAGNESIUM OXIDE 400 MG TAB PO SCH ×2 (08:26→20:15)
[2022-12-04] MEDS: amLODIPine BESYLATE 5 MG TAB PO SCH (08:27)
[2022-12-04] MEDS: HEPARIN SOD 5,000 UNIT/0.5 ML VIAL SQ SCH ×2 (08:27→20:14)
[2022-12-04] MEDS: CHOLECALCIFEROL 400 UNITS 10 MCG TAB PO SCH (08:27)
[2022-12-04] MEDS: DOXYCYCLINE HYCLATE 100 MG in DEXTROSE 5% 100 ML IV SCH ×2 (10:12→22:24)
[2022-12-04] MEDS: LIDOCAINE 5% 1 PATCH TD SCH (10:13)
[2022-12-04 11:09] LABS: Ehrlichia chaff DNA Bld Negative (Negative)
[2022-12-04] MEDS: ACETAMINOPHEN 325 MG TAB PO PRN ×2 (12:07→20:15)
--- NOTE | 2022-12-04 16:38 | Hospitalist Progress Note ---
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 Patient was also noted to be delirious and combative per EMS note. He is being managed for the following: Severe sepsis POA: At admission lactate 2.1, WBC 11.18 K, temperature 37.6 C, heart rate in 100s, respiratory rate in 20s, blood pressure low normal. Likely secondary to complicated UTI Anaplasmosis Catheter associated UTI possible pyelonephritis Metabolic encephalopathy secondary to sepsis Recurrent falls/scalp laceration: wound care consult, gen sx for laceration repair --appreciate recommendation. Scalp laceration healing well. No signs of infection. Patient noted to be not ambulating well and also noted to be delirious and combative prior to arrival. History of bladder cancer s/p cystectomy and ileal conduit in 2006. Admitting UA suggestive of UTI, patient has ileal conduit connected to urinary bladder. Admitting imagings: CXR/C-spine CT/head CT/CT chest with no acute findings. CTAP with status post cystectomy with ileal conduit and right lower quadrant ileostomy. Mild fullness of the left renal collecting system, without obstructing stone. Bilateral perinephric stranding, greater on the left. No renal stones. Status post sepsis protocol fluids Follow admitting blood culture and urine culture. Blood culture negative. He has started on Vanco cefepime and doxycycline 11/28, drop vanc 11/29, change cefepime to Rocephin 11/30. Urine culture with pansensitive E. coli. Mentation back to baseline, reports not smoking tobacco or drinking alcohol in the last few months. Acute kidney injury on chronic kidney stage III: Baseline creatinine of 1.3. Admitting creatinine of 6.5, CT abdomen pelvis as above, status post IV fluids, creatinine back to normal. Likely demand ischemia: Troponin flat trended, EKG with no acute ST or T changes, patient with no chest pain. Likely secondary to acute illness. Transaminitis: Likely secondary to sepsis, nicely trended down. Thrombocytopenia: Likely secondary to sepsis, resolved. Hyponatremia: Resolved. DVT prophylaxis: Heparin subcu Disposition: PT/OT, awaiting placement. Likely DC tomorrow CODE STATUS DNR/DNI Admission and Anticipated Discharge Date Admission Date: November 28, 2022 Subjective Patient seen and examined at bedside as a follow-up of complicated UTI, anaplasmosis, acute kidney injury on chronic kidney stage III Patient was lying semiupright in bed, on room air, not in distress, oriented, denies any headache or dizziness, reports no scrotal pain, denies any chest pain or palpitation abdominal pain. Reports eating okay and moving bowels okay. Reports chronic back pain and likes lidocaine patch as it is helping. Physical Exam Physical Exam: GENERAL: Alert and oriented x3. NAD, on RA. Appears weak/frail. HEENT: No pallor, no icterus. Pupils equal, round and reactive to light. Oral mucosa moist. NECK: No JVD, no neck masses. HEART: S1 and S2 heard. Regular rate and rhythm. No murmur, no gallop. RESPIRATORY SYSTEM: Normal AP diameter. No accessory muscle use. No wheezing, no crackles. ABDOMEN: Soft, bowel sounds present, nontender, no distention. CENTRAL NERVOUS SYSTEM: No facial droop. Speech is clear. Obeys simple commands. Moves extremities. EXTREMITIES: trace ble edema, no erythema seen. erythema noted over scrotum (likely 2/2 urinary leak/excoriation) --improving erythema and pain. Results & Data Results & Data Vital Signs (Past 12 Hours) Vital Signs Temp Pulse Pulse Resp BP Pulse Ox O2 Del Method 12/04/22 15:34 36.4 C L 66 18 161/77 H 96 Room Air 12/04/22 11:33 36.7 C 72 18 154/79 H 96 Room Air 12/04/22 07:59 36.7 C 89 20 154/74 H 92 Room Air 12/04/22 07:25 Room Air 12/04/22 07:25 65 (2) Sepsis Acute renal failure type: unspecified Sepsis acute organ dysfunction status: with acute organ dysfunction Sepsis type: sepsis due to unspecified organism S evere sepsis acute organ dysfunction type: acute renal failure Severe sepsis shock status: with septic shock Qualified Code(s): A41.9 - Sepsis, unspecified organism; R65.21 - Severe sepsis with septic shock; N17.9 - Acute kidney failure, unspecified
[2022-12-04 17:22] LABS: Q Fever IgG, Phase I NEGATIVE; Q Fever Phase I IgM Antibody NEGATIVE; Q Fever Phase II IgG Antibody NEGATIVE; Q Fever Phase II IgM Antibody NEGATIVE; R. typhi IgG Ab NOT DETECTED; R. typhi IgM Ab NOT DETECTED; RMSF IgG Ab NOT DETECTED; RMSF IgM Ab NOT DETECTED
[2022-12-04] MEDS: cefTRIAXone SODIUM 2,000 MG in DEXTROSE 5% 50 ML IV SCH (20:10)
[2022-12-04] MEDS: ATORVASTATIN 20 MG TAB PO SCH (20:15)
[2022-12-04] MEDS: clonazePAM 1 MG TAB PO PRN (20:16)
[2022-12-04] MEDS: MELATONIN 3 MG TAB PO PRN (20:16)
[2022-12-05] MEDS: PANTOprazole 40 MG TAB PO SCH (05:51)
[2022-12-05 08:21] LABS: BUN Creatinine Ratio 12.1 (10-20); Creatinine Clr Calc Pharmacy 58.6 ml/min; Est GFR (African American) 75.6 ml/min; Est GFR (Non-African American) 65.2 ml/min; Magnesium 1.4 mg/dl (1.7-2.4); Phosphorus 2.9 mg/dl (2.5-4.9); Potassium 4.2 mmol/L (3.5-5.1)
[2022-12-05] MEDS: amLODIPine BESYLATE 5 MG TAB PO SCH (09:17)
[2022-12-05] MEDS: HEPARIN SOD 5,000 UNIT/0.5 ML VIAL SQ SCH (09:18)
[2022-12-05] MEDS: MAGNESIUM OXIDE 400 MG TAB PO SCH (09:18)
[2022-12-05] MEDS: ATENOLOL 50 MG TABLET PO SCH (09:18)
[2022-12-05] MEDS: FERROUS SULFATE 325 MG TAB PO SCH (09:18)
[2022-12-05] MEDS: CHOLECALCIFEROL 400 UNITS 10 MCG TAB PO SCH (09:18)
[2022-12-05] MEDS: LIDOCAINE 5% 1 PATCH TD SCH (09:22)
[2022-12-05] MEDS: DOXYCYCLINE HYCLATE 100 MG in DEXTROSE 5% 100 ML IV SCH (10:18)
--- NOTE | 2022-12-05 11:20 | Discharge Summary ---
Date of Service December 05, 2022 Admission HPI Per Admitting Provider 81-year-old male with past medical significant for hyperlipidemia, hypertension, chronic kidney disease stage III, 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 Son lives close by. Eats regular food and swallows okay as per the son was brought in because patient was feeling very weak and recurrent falls at home. Son thinks about a week ago patient fell and pulled his muscle on the right side and since then he is not ambulating much. He also sleeping a lot. He wanted him to come to the hospital but patient refused. Finally finally his son decided to bring him to the hospital and called EMS. EMS asked to give IV Versed to help facilitate the transfer as patient was delirious and combative. In the ER he was tachycardic and hypotensive with blood pressure in the 70s. He was given septic protocol fluids. Blood pressures somewhat improved. He was spiking temperatures. His platelets are 86. Creatinine 6.5. Initial lactic acid 2.1 but improved with the fluids. His urinalysis came back positive and also is on a spasmus. Came back positive. Patient is somewhat drowsy. Denies any chest pain or headache. Says he is doing okay. Son is in the room. As per son no nausea vomitings. Cannot give much history currently. Admission Exam Per Admitting Provider General- Drowsy Head- atraumatic Eyes- PERRL, ENT- oropharynx dry Neck- supple, no JVD, Lungs- clear to auscultation and percussion Heart- regular rate rhythm; no murmur,Tachycardia Abdomen- normal bowel sounds, soft, nontender, s/p ileal conduit bag with clear urine seen Extremities- no pretibial edema, no erythema seen Neuro- Drowsy, answering some simple questions Skin- warm & dry Principal Diagnosis Severe sepsis Anaplasmosis Complicated Urinary tract infection Acute kidney injury Discharge Exam Constitutional + well hydrated; no acute distress Eyes PERRL, conjunctivae normal, anicteric sclerae ENMT external ear and nose normal, oropharynx normal Respiratory normal respiratory effort, lungs clear to auscultation Cardiovascular Rate/Rhythm: regular rate and regular rhythm S1 S2 Gastrointestinal (Abdomen) normal bowel sounds, soft, nontender, no hepatosplenomegaly Musculoskeletal Trace pedal edema Neurologic PERRL, EOMI, accommodation nl, no face palsy, no dysarthria Psychiatric A+Ox3, euthymic affect Genitourinary Urostomy bag in situ Discharge Data Allergies Allergy/AdvReac Type Severity Reaction Status Date / Time meclizine Allergy Severe THROAT/TONGUE Verified 11/28/22 22:16 SWELLS aspirin AdvReac Unknown History of Verified 11/28/22 22:16 ulcers Consultations 11/28/22 21:37 ED Decision to Admit Stat 11/29/22 08:00 Consult Nephrology Routine 11/29/22 15:01 Consult General Surgery Routine Ordered Studies 11/28/22 20:00 CT cervical spine wo con Stat CT head/brain wo con Stat 11/28/22 20:09 CT abd pelvis wo con Stat CT chest diagnostic wo con Stat Hospital Course (1) Anaplasmosis: (2) Sepsis: Plan 81-year-old male with PMH of HLD, HTN, CKD stage III, 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 Patient was also noted to be delirious and combative per EMS note. He is being managed for the following: Severe sepsis POA: Anaplasmosis Complicated UTI Metabolic encephalopathy Patient noted to be not ambulating well and also noted to be delirious and combative prior to arrival. History of bladder cancer s/p cystectomy and ileal conduit in 2006. Admitting UA suggestive of UTI, patient has ileal conduit connected to urinary bladder. Admitting imagings: CXR/C-spine CT/head CT/CT chest with no acute findings. CTAP with status post cystectomy with ileal conduit and right lower quadrant ileostomy. Mild fullness of the left renal collecting system, without obstructing stone. Bilateral perinephric stranding, greater on the left. No renal stones. On admission lactate 2.1, WBC 11.18 K, temperature 37.6 C, heart rate in 100s, respiratory rate in 20s, blood pressure low normal. Was managed for severe sepsis Was treated initially with vancomycin, cefepime and doxycycline which was later deescalated based on culture results and sensitivities Blood culture negative Urine culture grew pansensitive E.coli Anaplasma screen and DNA came back positive Scalp laceration healing well Mental status back to baseline Discharged on cefdinir 300mg BID and doxycycline 100mg bid until 12/08/22 to co mplete 10 day therapy Acute kidney injury on chronic kidney stage III: Baseline creatinine of 1.3. Admitting creatinine of 6.5 JAROCHO resolved with IVF Likely demand ischemia: Troponin flat trended EKG with no acute ST or T changes Patient had no chest pain. Likely secondary to acute illness. Transaminitis: Likely secondary to sepsis, nicely trended down. Thrombocytopenia: Likely secondary to infection, resolved. Hyponatremia: Resolved. Hypomagnesemia: Started on po mag oxide Discharged to [facility] Total Time Total Time Spent Total Time Spent (In Minutes): 40 Total Time Includes: Examination of the Patient, Discharge Planning and Medication Reconciliation Discharge Plan Discharge Items Patient Disposition: Transfer Inpatient Rehab Fac Reason For Visit: SEVERE SEPSIS, JAROCHO Discharge Diagnosis: Severe sepsis Anaplasmosis Complicated Urinary tract infection Acute kidney injury Activity: As commented below Activity Comment: Per Physical therapist recs Non-emergency contact: Primary Care Provider Call non-emergency contact if: you have any medication questions Follow-up/Referrals: Demarco Guallpa MD [Primary Care Provider] - Diet: Heart Healthy Diet Texture: Easy to Chew Addtl Attending Provider Instructions: Mr Goel You were brought to the hospital for weakness and recurrent falls at home. You were evaluated and managed for the above listed diagnoses. You are being discharged to [facility] for rehab. Please continue cefdinir till 12/08/22 to complete treatment for the urinary tract infection Please continue doxycycline till 12/08/22 to complete treatment for the anaplasmosis. It was a pleasure taking care of you. Pending Studies at Discharge: Yes Stand-Alone Forms: My [facility] Skilled Items Patient informed of condition?: Yes DNR: Yes Discharge Level of Care: Acute rehab Communicable Disease: No Discharge Prognosis: Stable Lines: None Urinary Catheter: No (Has an ilial conduit) Medications and DC Order Prescriptions: New magnesium oxide 400 mg (241.3 mg magnesium) Tablet 400 mg PO BID Qty: 30 0RF doxycycline hyclate 100 mg tablet 100 mg PO BID 3 Days Qty: 6 0RF cefdinir 300 mg capsule 300 mg PO BID 3 Days Qty: 6 0RF Continued atorvastatin 20 mg Tablet 20 mg PO PM clonazepam 1 mg Tablet 1 mg PO HS PRN (Reason: RESTLESSNESS) clonazepam 1 mg Tablet 0.5 mg PO BID PRN (Reason: Anxiety) acetaminophen [Tylenol Extra Strength] 500 mg Tablet 500 - 1,000 mg PO DIRECTED PRN (Reason: Pain) ferrous sulfate 325 mg (65 mg iron) Tablet 325 mg PO DAILY omeprazole 20 mg Capsule,Delayed Release(Dr/Ec) 20 mg PO DAILYBB lorazepam 1 mg Tablet 1 mg PO DIRECTED PRN (Reason: BEFORE TRAVELING) Rx Instructions: TAKE ONE TABLET BY MOUTH BEFORE TRAVELING-MAY REPEAT AFTER 30 MINUTES. atenolol 50 mg Tablet 100 mg PO DAILY cholecalciferol (vitamin D3) [D-Vi-Tish] 10 mcg/mL (400 unit/mL) Drops 400 unit PO DAILY Men's One Daily 400-20-300 mcg Tablet 1 tab PO DAILY trazodone 50 mg tablet 50 mg PO HS amlodipine 5 mg tablet 5 mg PO DAILY Discharge Orders: Discharge Order (Routine); Ordered 12/05/22 Ordered By: Jodie Hickman Admission Data Admit Date/Time: 11/28/22 23:25 Attending Provider: Jodie Hickman I. Admit Provider: Nadeem Adams Primary Care Provider: Demarco Guallpa Other Providers: Nadeem Adams ; Jacquelyn Braden ; Jelani Enciso ; [facility] ; Abbie Jackson Other Interventions: Discharge Summary Assessment (RN) Last Done: 12/05/22 13:12
[2022-12-05] MEDS: MAGNESIUM SULFATE / D5W 1 GM/100 ML BAG IV SCH ×2 (11:55→12:48)
== END 2022-12-05 14:04 | DRG 871 ==
LOC: ED 19:22 → 2S 23:25 → SUATTDRO 23:25 → 2S 11-29 00:24

== ENCOUNTER 2022-12-28 11:56 | Inpatient (IN) ==
[2022-12-28] MEDS ORDERED: SODIUM CHLORIDE 0.9% 1,000 ML IV ONE ×2 (12:16→13:18)
--- NOTE | 2022-12-28 12:17 | Emergency Department Note ---
Impression & Plan Diarrhea, Acute UTI (urinary tract infection), Acute proctitis, Acute kidney injury superimposed on chronic kidney disease ED Provider Note HISTORY OF PRESENT ILLNESS: Patient is an 82-year-old male presenting with diarrhea. Patient reports he has been having diarrhea for the last 4 days. States that diarrhea started 4 days ago and has gotten progressively worse and that he is having more episodes of diarrhea daily. Denies any recent antibiotic use. Denies any fevers. Denies any nausea or vomiting. Denies any abdominal pain. Denies any chest pain or shortness of breath. Denies any recent travel or recent sick contact exposure. Reports that he has been having more than 5 episodes of diarrhea a day. ROS: as above PHYSICAL EXAM: Constitutional: Patient appears in no acute distress. HENT: Head: Normocephalic and atraumatic. Eyes: EOMI, PERRL Mouth/Throat: Mucous membranes moist. Neck: Trachea midline. Neck supple. Cardiovascular: RRR, No murmurs, rubs or gallops. Intact distal pulses. Pulmonary/Chest: No respiratory distress. Breath sounds clear and equal bilaterally. No wheezes or rales. Abdominal: Abdomen soft, no tenderness, rebound or guarding. Musculoskeletal: No edema, tenderness or deformity noted. Skin: Warm and dry. No rash, erythema, pallor or cyanosis Psychiatric: Appropriate mood and affect for situation. Neurological: Alert and keenly responsive. CN II-XII grossly intact, moving all extremities equally and fully. MDM: - Vitals signs stable. - History obtained via patient. Patient presents with diarrhea for the last 4 days. It is gotten progressively worse and more frequent. Denies any fevers. Denies any nausea or vomiting. Denies any abdominal pain. Denies any recent antibiotic use. - Chronic conditions affecting care: CKD; hx of bladder cancer - Differential diagnoses include, but are not limited to: Electrolyte abnormalit y; viral syndrome; colitis; diverticulitis - Order placed for continuous cardiac monitoring. At this time, monitor showed rate of 71 bpm with normal sinus rhythm, per my interpretation. - External medical records reviewed. - Laboratory workup interpreted by myself showed leukocytosis (WBC 15.14); normal lactate; slight hyponatremia (Na 133); JAROCHO (Cr 1.47 - baseline around 1.1); normal lipase - UA shows evidence of infection. Patient given 1g IV rocephin - Patient given 2L NS in ER - CT abdomen/pelvis with IV contrast showed proctitis. - Discussion was had with social media community manager about patient's case and need for admission - Hospitalist consulted for admission - [facility] ASSESSMENT AND PLAN: Diagnosis: diarrhea; procitis; UTI; JAROCHO on CKD Plan: admit Past Med/Surg History Medical History Anxiety CKD (chronic kidney disease), stage III Dyslipidemia History of carcinoma of bladder History of colon polyps Hypertension Macular degeneration Tinnitus Tobacco use Surgical History H/O total cystectomy with ileal conduit Status post lumbar surgery Family History Other Cancer Coronary heart disease Social History Smoking Status: Former smoker Cigarettes Per Day: 1-2 per day up to 12 per day, intermittently; Second Hand Exposure: No; Do You Dip or Chew Tobacco: No; Hx Alcohol Use: Yes Alcohol type: beer Alcohol Intake Frequency: 2-3 x/Week Hx Substance Use: No Preferred Language: Armenian Communication Ability: Effective Cloth Desizing Range Operator Chief Required: No Beliefs That Will Affect Care: None marital status: / Current Living Situation: Alone Feels Safe at Home: Yes Assistive Devices: Cane and Walker Allergies Allergies Allergy/AdvReac Type Severity Reaction Status Date / Time meclizine Allergy Severe THROAT/TONGUE Verified 12/28/22 14:56 SWELLS aspirin AdvReac Unknown History of Verified 12/28/22 14:56 ulcers Home Meds Home Medications Medication Instructions Recorded Confirmed acetaminophen 500 mg tablet 500 - 1,000 mg PO DIRECTED PRN 11/28/18 12/28/22 (Tylenol Extra Strength) Pain atenolol 50 mg tablet 100 mg PO DAILY 11/28/18 12/28/22 atorvastatin 20 mg tablet 20 mg PO PM 11/28/18 12/28/22 cholecalciferol (vitamin D3) 10 400 unit PO DAILY 11/28/18 12/28/22 mcg/mL (400 unit/mL) oral drops (D-Vi-Tish) clonazepam 1 mg tablet 0.5 mg PO BID PRN Anxiety 11/28/18 12/28/22 clonazepam 1 mg tablet 1 mg PO HS PRN RESTLESSNESS 11/28/18 12/28/22 ferrous sulfate 325 mg (65 mg 325 mg PO DAILY 11/28/18 12/28/22 iron) tablet lorazepam 1 mg tablet 1 mg PO DIRECTED PRN BEFORE 11/28/18 12/28/22 TRAVELING swdzojyc-xwdwzyid-bbbzc acid 400 1 tab PO DAILY 11/28/18 12/28/22 mcg-vit K 20 mcg-lycop 300 mcg tablet (Men's One Daily) omeprazole 20 mg capsule,delayed 20 mg PO DAILYBB 11/28/18 12/28/22 release amlodipine 5 mg tablet 5 mg PO DAILY 05/16/22 12/28/22 trazodone 50 mg tablet 50 mg PO HS 05/16/22 12/28/22 baclofen 10 mg tablet 10 mg PO BID 12/28/22 12/28/22 nystatin 100,000 unit/gram topical 1 applic topical BID 12/28/22 12/28/22 cream Previous Rx's Medication Instructions Recorded magnesium oxide 400 mg (241.3 mg 400 mg PO BID #30 tabs 12/05/22 magnesium) tablet Results & Data (ED) Vital Signs Vital Signs - 24 hr 12/28/22 12:11 12/28/22 12:13 12/28/22 12:13 Temperature 36.9 C Temperature Source Oral Pulse Rate 72 74 Pulse Rate from SpO2 Sensor Respiratory Rate 16 16 Blood Pressure 134/70 Blood Pressure Mean 91 Pulse Oximetry 94 Sepsis Recent Fever Within 48 Hours No Sepsis New/Unexplained Change in Mental Status N/A Sepsis Action Taken by Nursing No Action Required 12/28/22 12:16 12/28/22 14:58 12/28/22 15:30 Temperature Temperature Source Pulse Rate 75 73 Pulse Rate from SpO2 Sensor 74 73 Respiratory Rate 15 19 Blood Pressure 143/74 H 126/70 Blood Pressure Mean 97 88 Pulse Oximetry 96 95 95 Sepsis Recent Fever Within 48 Hours Sepsis New/Unexplained Change in Mental Status Sepsis Action Taken by Nursing 12/28/22 15:50 12/28/22 16:00 12/28/22 16:00 Temperature Temperature Source Pulse Rate 73 70 Pulse Rate from SpO2 Sensor 74 71 Respiratory Rate 20 24 Blood Pressure 137/76 Blood Pressure Mean 104 Pulse Oximetry 96 96 Sepsis Recent Fever Within 48 Hours Sepsis New/Unexplained Change in Mental Status Sepsis Action Taken by Nursing Laboratory Data 12/28/22 13:01 12/28/22 12:12 Lab Results 12/28/22 12/28/22 12/28/22 Range/Units 12:12 12:12 12:29 WBC Cancelled RBC Cancelled Hgb Cancelled Hct Cancelled MCV Cancelled MCH Cancelled MCHC Cancelled RDW Std Deviation Cancelled RDW Coeff of Hemanth Cancelled Plt Count Cancelled MPV Cancelled Immature Gran % (Auto) Cancelled Neut % (Auto) Cancelled Lymph % (Auto) Cancelled Blair % (Auto) Cancelled Eos % (Auto) Cancelled Baso % (Auto) Cancelled Neut # (Auto) Cancelled Lymph # (Auto) Cancelled Blair # (Auto) Cancelled Eos # (Auto) Cancelled Baso # (Auto) Cancelled Immature Gran # (Auto) Cancelled Absolute Nucleated RBC Cancelled Nucleated RBC % (auto) Cancelled Neutrophils % (Manual) Cancelled Band Neutrophils % Cancelled Lymphocytes % (Manual) Cancelled Prolymphocyte % Cancelled Reactive Lymphs % (Man) Cancelled Monocytes % (Manual) Cancelled Eosinophils % (Manual) Cancelled Basophils % (Manual) Cancelled Metamyelocytes % (Man) Cancelled Myelocytes % (Man) Cancelled Promyelocytes % (Man) Cancelled Blast Cells % (Manual) Cancelled Plasma Cell % (Manual) Cancelled Other Cells % Cancelled Nucleated RBC % Cancelled Neutrophils # (Manual) Cancelled Band Neutrophils # Cancelled Total Absolute Neuts Cancelled Lymphocytes # (Manual) Cancelled Prolymphocyte # Cancelled Reactive Lymphs # Cancelled Total Abs Lymphocytes Cancelled Monocytes # (Manual) Cancelled Eosinophils # (Manual) Cancelled Basophils # (Manual) Cancelled Metamyelocytes # (Man) Cancelled Myelocytes # (Manual) Cancelled Promyelocytes # (Man) Cancelled Blast Cells # (Man) Cancelled Plasma Cell # (Manual) Cancelled Other Cells # Cancelled Nucleated RBCs # (Man) Cancelled Hypersegmented Neuts Cancelled Hyposegmented Neuts Cancelled Hypogranular Neuts Cancelled Large Granular Lymphs Cancelled # Lrg Granular Lymphs Cancelled Hairy Cells Cancelled Smudge Cells Cancelled Toxic Granulation Cancelled Toxic Vacuolation Cancelled Dohle Bodies Cancelled Ingris Rods Cancelled Platelet Estimate Cancelled Hypogranular Platelets Cancelled Giant Platelets Cancelled Platelet Satelliting Cancelled RBC Morphology Cancelled Polychromasia Cancelled Hypochromasia Cancelled Poikilocytosis Cancelled Basophilic Stippling Cancelled Anisocytosis Cancelled Microcytosis Cancelled Macrocytosis Cancelled Spherocytes Cancelled Pappenheimer Bodies Cancelled Sickle Cells Cancelled Target Cells Cancelled Tear Drop Cells Cancelled Ovalocytes Cancelled Stomatocytes Cancelled [place] Bodies Cancelled Echinocytes Cancelled Acanthocytes (Spur) Cancelled Rouleaux Cancelled RBC Agglutinates Cancelled Schistocytes Cancelled Sezary Cell Cancelled Sodium 133 L (136-145) mmol/L Potassium 4.2 (3.5-5.1) mmol/L Chloride 103 (98-107) mmol/L Carbon Dioxide 24 (21-32) mmol/L Anion Gap 6 (3-11) BUN 23 (6-23) mg/dl Creatinine 1.47 H (0.6-1.4) mg/dl Est Cr Clr Drug Dosing 42.5 ml/min Est GFR ( Amer) 51.1 ml/min Est GFR (Non-Af Amer) 44.1 ml/min BUN/Creatinine Ratio 15.6 (10-20) Glucose 93 (70-99(Fasting)) mg/dl Lactate 0.7 (0.4-2.0) mmol/L Calcium 8.9 (8.6-10.3) mg/dl Total Bilirubin 0.6 (0.2-1.0) mg/dl AST 17 (13-39) U/L ALT 12 (7-52) U/L Alkaline Phosphatase 96 (34-104) U/L Total Protein 6.4 (6.0-8.3) gm/dl Albumin 3.4 (3.4-5.0) gm/dl Globulin 3.0 (2.5-4.0) gm/dl Albumin/Globulin Ratio 1.1 (0.9-2) Lipase 18 (11-82) U/L Urine Color Urine Appearance (Clear) Urine pH (4.5-7.5) Ur Specific Pool (1.000-1.030) Urine Protein (Negative) Urine Glucose (UA) (Negative) Urine Ketones (Negative) Urine Blood (Negative) Urine Nitrite (Negative) Urine Bilirubin (Negative) Urine Urobilinogen (Negative) Ur Leukocyte Esterase (Negative) Urine WBC (Auto) (0-5) /hpf Urine RBC (Auto) (0-4) /hpf U Hyaline Cast (Auto) (0-5) /lpf U Epithel Cells (Auto) (0-5) /lpf Urine Bacteria (Auto) (Negative) Ur Renal Epithelial Cell Urine Sperm (None Prsent) Blood Parasites ID Cancelled 12/28/22 12/28/22 Range/Units 13:01 15:06 WBC 15.14 H RBC 3.19 L Hgb 10.1 L Hct 30.1 L MCV 94.4 MCH 31.7 MCHC 33.6 RDW Std Deviation 48.2 H RDW Coeff of Hemanth 13.9 Plt Count 253 MPV 9.4 Immature Gran % (Auto) 0.7 Neut % (Auto) 60.2 Lymph % (Auto) 27.3 Blair % (Auto) 9.7 Eos % (Auto) 1.6 Baso % (Auto) 0.5 Neut # (Auto) 9.11 H Lymph # (Auto) 4.13 H Blair # (Auto) 1.47 H Eos # (Auto) 0.24 Baso # (Auto) 0.08 Immature Gran # (Auto) 0.11 Absolute Nucleated RBC Nucleated RBC % (auto) Neutrophils % (Manual) Band Neutrophils % Lymphocytes % (Manual) Prolymphocyte % Reactive Lymphs % (Man) Monocytes % (Manual) Eosinophils % (Manual) Basophils % (Manual) Metamyelocytes % (Man) Myelocytes % (Man) Promyelocytes % (Man) Blast Cells % (Manual) Plasma Cell % (Manual) Other Cells % Nucleated RBC % Neutrophils # (Manual) Band Neutrophils # Total Absolute Neuts Lymphocytes # (Manual) Prolymphocyte # Reactive Lymphs # Total Abs Lymphocytes Monocytes # (Manual) Eosinophils # (Manual) Basophils # (Manual) Metamyelocytes # (Man) Myelocytes # (Manual) Promyelocytes # (Man) Blast Cells # (Man) Plasma Cell # (Manual) Other Cells # Nucleated RBCs # (Man) Hypersegmented Neuts Hyposegmented Neuts Hypogranular Neuts Large Granular Lymphs # Lrg Granular Lymphs Hairy Cells Smudge Cells Toxic Granulation Toxic Vacuolation Dohle Bodies Ingris Rods Platelet Estimate Hypogranular Platelets Giant Platelets Platelet Satelliting RBC Morphology Polychromasia Hypochromasia Poikilocytosis Basophilic Stippling Anisocytosis Microcytosis Macrocytosis Spherocytes Pappenheimer Bodies Sickle Cells Target Cells Tear Drop Cells Ovalocytes Stomatocytes [place] Bodies Echinocytes Acanthocytes (Spur) Rouleaux RBC Agglutinates Schistocytes Sezary Cell Sodium (136-145) mmol/L Potassium (3.5-5.1) mmol/L Chloride (98-107) mmol/L Carbon Dioxide (21-32) mmol/L Anion Gap (3-11) BUN (6-23) mg/dl Creatinine (0.6-1.4) mg/dl Est Cr Clr Drug Dosing ml/min Est GFR ( Amer) ml/min Est GFR (Non-Af Amer) ml/min BUN/Creatinine Ratio (10-20) Glucose (70-99(Fasting)) mg/dl Lactate (0.4-2.0) mmol/L Calcium (8.6-10.3) mg/dl Total Bilirubin (0.2-1.0) mg/dl AST (13-39) U/L ALT (7-52) U/L Alkaline Phosphatase (34-104) U/L Total Protein (6.0-8.3) gm/dl Albumin (3.4-5.0) gm/dl Globulin (2.5-4.0) gm/dl Albumin/Globulin Ratio (0.9-2) Lipase (11-82) U/L Urine Color Yellow Urine Appearance Clear (Clear) Urine pH 6.5 (4.5-7.5) Ur Specific Pool 1.008 (1.000-1.030) Urine Protein Negative (Negative) Urine Glucose (UA) Negative (Negative) Urine Ketones Negative (Negative) Urine Blood 3+ H (Negative) Urine Nitrite Positive A (Negative) Urine Bilirubin Negative (Negative) Urine Urobilinogen Negative (Negative) Ur Leukocyte Esterase 1+ H (Negative) Urine WBC (Auto) 5-10 H (0-5) /hpf Urine RBC (Auto) 10-30 H (0-4) /hpf U Hyaline Cast (Auto) 1-5 (0-5) /lpf U Epithel Cells (Auto) 10-20 H (0-5) /lpf Urine Bacteria (Auto) 4+ H (Negative) Ur Renal Epithelial Cell Not Reportable Urine Sperm Present A (None Prsent) Blood Parasites ID Administered Medications Discontinued Medications Sodium Chloride (Nss 1000ml) 1,000 mls @ 999 mls/hr IV .Q1H1M ONE Stop: 12/28/22 13:16 Last Infusion: 12/28/22 13:14 Dose: 0 mls/hr Documented By: Admin: 12/28/22 12:21 Dose: 999 mls/hr Documented By: RSL Sodium Chloride (Nss 1000ml) 1,000 mls @ 999 mls/hr IV .Q1H1M ONE Stop: 12/28/22 14:18 Last Infusion: 12/28/22 14:28 Dose: 0 mls/hr Documented By: Admin: 12/28/22 13:20 Dose: 999 mls/hr Documented By: RSL Imaging Data Radiologist's Impression: Abdomen/Pelvis CT 12/28/22 13:25 CT abd pelvis wo con CLINICAL HISTORY: diarrhea TECHNIQUE: Helical axial images of the abdomen and pelvis were obtained. Automated dose lowering techniques and/or adjustment according to patient size were utilized for this exam. This exam was performed without intravenous contrast. CT DOSE: 1109.45 mGy.cm COMPARISON: None available at the time of this dictation. FINDINGS: Lower chest: Bibasilar atelectasis versus scarring is seen. Liver: Unremarkable. No focal lesions are seen. Gallbladder and biliary tree: No calcified gallstones. Normal caliber wall. No intra- or extrahepatic biliary ductal dilation. Pancreas: Unremarkable, no focal lesions. Spleen: Unremarkable. Adrenals: Unremarkable. Kidneys and ureters: Perinephric stranding is noted bilaterally. Bladder: Status post cystectomy with a ileal conduit noted. Reproductive organs: Not well seen. Bowel: There is mild thickening of the rectal wall. Limited contents are noted in the colon. The appendix is normal. There are postsurgical changes of bowel resection. Lymph nodes Retroperitoneal: Subcentimeter lymph nodes are noted. Pelvic: Unremarkable. Mesenteric: Unremarkable. Peritoneum: Normal. Vessels: Atherosclerotic calcifications are seen. Abdominal wall: Unremarkable. Bones: Degenerative changes in the visualized spine. Multilevel compression deformities are seen and lumbar spine, chronic. IMPRESSION: 1. Mild wall thickening of the rectum may represent an element of proctitis. Liquid contents are compatible with diarrhea. 2. Patient is status post ileal conduit formation. ACT 112: Negative or not required by law. Electronically signed by: Vipin Amos M.D. 12/28/2022 2:30 PM Discharge Plan Visit Data Chief Complaint: Diarrhea Stated Complaint: DIARRHEA ED Provider: Jeanne Paula Discharge Problem: Diarrhea, Acute UTI (urinary tract infection), Acute proctitis, Acute kidney injury superimposed on chronic kidney disease Forms Stand Alone Forms: My [facility] Prescriptions Prescriptions: No Action atorvastatin 20 mg Tablet 20 mg PO PM clonazepam 1 mg Tablet 1 mg PO HS PRN (Reason: RESTLESSNESS) clonazepam 1 mg Tablet 0.5 mg PO BID PRN (Reason: Anxiety) acetaminophen [Tylenol Extra Strength] 500 mg Tablet 500 - 1,000 mg PO DIRECTED PRN (Reason: Pain) ferrous sulfate 325 mg (65 mg iron) Tablet 325 mg PO DAILY omeprazole 20 mg Capsule,Delayed Release(Dr/Ec) 20 mg PO DAILYBB lorazepam 1 mg Tablet 1 mg PO DIRECTED PRN (Reason: BEFORE TRAVELING) Rx Instructions: TAKE ONE TABLET BY MOUTH BEFORE TRAVELING-MAY REPEAT AFTER 30 MINUTES. atenolol 50 mg Tablet 100 mg PO DAILY cholecalciferol (vitamin D3) [D-Vi-Itsh] 10 mcg/mL (400 unit/mL) Drops 400 unit PO DAILY Men's One Daily 400-20-300 mcg Tablet 1 tab PO DAILY trazodone 50 mg tablet 50 mg PO HS amlodipine 5 mg tablet 5 mg PO DAILY baclofen 10 mg tablet 10 mg PO BID nystatin 100,000 unit/gram cream 1 applic TOPICAL BID magnesium oxide 400 mg (241.3 mg magnesium) Tablet 400 mg PO BID Qty: 30 0RF Referrals Referrals: Demarco Guallpa MD [Primary Care Provider] -
[2022-12-28 13:11] LABS: Albumin Level 3.4 gm/dl (3.4-5.0); Bilirubin,Total 0.6 mg/dl (0.2-1.0); Calcium 8.9 mg/dl (8.6-10.3); Potassium 4.2 mmol/L (3.5-5.1)
[2022-12-28 13:17] LABS: Albumin Globulin Ratio 1.1 (0.9-2); BUN Creatinine Ratio 15.6 (10-20); Creatinine Clr Calc Pharmacy 42.5 ml/min; Est GFR (African American) 51.1 ml/min; Est GFR (Non-African American) 44.1 ml/min; Total Protein 6.4 gm/dl (6.0-8.3)
[2022-12-28 13:23] LABS: Hematocrit (blood only) 30.1 % (42.0-52.0); Hemoglobin 10.1 g/dl (14.0-18.0); Mean Corpuscular Hemoglobin 31.7 pg (25.0-34.0); Mean Corpuscular Hgb Conc 33.6 g/dL (32.0-36.0); Mean Corpuscular Volume 94.4 fL (80.0-100.0); Mean Platelet Volume 9.4 fL (9.4-12.4); Platelet Count 253 K/uL (130-400); RDW Coefficient of Variation 13.9 % (11.5-14.5); RDW Standard Deviation 48.2 fL (36.4-46.3); Red Blood Count 3.19 M/uL (4.70-6.10); White Blood Count 15.14 K/ul (4.8-10.8)
[2022-12-28 13:47] LABS: Basophils # (auto) 0.08 K/uL (0.00-0.20); Basophils % (auto) 0.5 %; Eosinophils # (auto) 0.24 K/uL (0.00-0.50); Eosinophils % (auto) 1.6 %; Immature Granulocytes # (auto) 0.11 K/uL (0.01-0.20); Immature Granulocytes % (auto) 0.7 %; Lymphocytes # (auto) 4.13 K/uL (1.20-3.40); Lymphocytes % (auto) 27.3 %; Monocytes # (auto) 1.47 K/uL (0.11-0.59); Monocytes % (auto) 9.7 %; Neutrophils # (auto) 9.11 K/uL (1.40-6.50); Neutrophils % (auto) 60.2 %
--- NOTE | 2022-12-28 14:31 | CT Scan Report ---
CT abd pelvis wo con CLINICAL HISTORY: diarrhea TECHNIQUE: Helical axial images of the abdomen and pelvis were obtained. Automated dose lowering tech niques and/or adjustment according to patient size were utilized for this exam. This exam was perfor med without intravenous contrast. CT DOSE: 1109.45 mGy.cm COMPARISON: None available at the time of this dictation. FINDINGS: Lower chest: Bibasilar atelectasis versus scarring is seen. Liver: Unremarkable. No focal lesions are seen. Gallbladder and biliary tree: No calcified gallstones. Normal caliber wall. No intra- or extrahepatic biliary ductal dilation. Pancreas: Unremarkable, no focal lesions. Spleen: Unremarkable. Adrenals: Unremarkable. Kidneys and ureters: Perinephric stranding is noted bilaterally. Bladder: Status post cystectomy with a ileal conduit noted. Reproductive organs: Not well seen. Bowel: There is mild thickening of the rectal wall. Limited contents are noted in the colon. The appe ndix is normal. There are postsurgical changes of bowel resection. Lymph nodes Retroperitoneal: Subcentimeter lymph nodes are noted. Pelvic: Unremarkable. Mesenteric: Unremarkable. Peritoneum: Normal. Vessels: Atherosclerotic calcifications are seen. Abdominal wall: Unremarkable. Bones: Degenerative changes in the visualized spine. Multilevel compression deformities are seen and lumbar spine, chronic. IMPRESSION: 1. Mild wall thickening of the rectum may represent an element of proctitis. Liquid contents are com patible with diarrhea. 2. Patient is status post ileal conduit formation. ACT 112: Negative or not required by law. Electronically signed by: Vipin Amos M.D. 12/28/2022 2:30 PM
[2022-12-28 15:32] LABS: Appearance Urine Clear (Clear); Bacteria Urine Automated 4+ (Negative); Bilirubin Urine Negative (Negative); Blood Urine 3+ (Negative); Color Urine Yellow; Glucose Urine UA Negative (Negative); Ketones Urine Negative (Negative); Leukocyte Esterase Urine 1+ (Negative); Nitrite Urine Positive (Negative); Protein Urine Negative (Negative); Specific Gravity Urine 1.008 (1.000-1.030); Urobilinogen Urine Negative (Negative); pH Urine 6.5 (4.5-7.5)
[2022-12-28 15:45] LABS: Sperm Urine Present (None Prsent)
[2022-12-28] MEDS ORDERED: cefTRIAXone SODIUM 1,000 MG in DEXTROSE 5% AD-VAN 50 ML IV STA (16:05)
--- NOTE | 2022-12-28 16:14 | History & Physical Report ---
Date of Service December 28, 2022 Assessment & Plan (1) Diarrhea: (2) Acute UTI (urinary tract infection): (3) Acute proctitis: Plan This is a 82-year-old male who has a significant past medical history of HTN, HLD, CKD stage III, history of bladder cancer status postresection with presence of urostomy, alcohol abuse, tobacco abuse, macular degeneration and anxiety who presents to ED secondary to diarrhea x 3 days. Acute Proctitis Diarrhea admit to med tele recent antibiotic use no abd pain, n/v and was preceded by constipation, he did not take laxatives stool studies negative Obtain Stool for Cdiff if cdiff negative can utilize imodium received 2L of IVF in ED, will hold additional fluid this evening hold magnesium supplements empirically place on IV zosyn will consult GI in a.m. check a.m. labs Acute UTI, complicated recent UTI at end of November, pansensitive E. Coli wbc 15k, will empirically tx with pip/tazo for GI coverage as well, add probiotic await urine culture he does not meet sepsis criteria may need to consult urology given recurrent UTI CKD-3 renal function stable, chronic cr slightly up at 1.47, baseline 1.2 received fluids in ED, will continue to encourage PO intake monitor renal function in a.m. Hx of Bladder ca s/p ileal conduit HTN bp stable, chronic continue atenolol and amlodipine HLD chronic, stable continue statin Hx of ETOH abuse no alcohol in 6 weeks encourage to continue to abstain Tobacco abuse encourage cessation Chronic back pain recently placed on baclofen as OP, monitor DVT ppx: SQ Lovenox Dispo: med tele, consult PT/OT DNR/DNI PCP:Saloni Pt was seen and examined in collaboration with Dr. Bernabe, please see addendum A total of 75 was spent coordinating, documenting, and providing care for this patient excluding time spent in the performance of separately billed services. This included personally viewing all current laboratories and imaging studies, medication reconciliation, outpatient chart review, and discussion with specialists. History of Present Illness Chief Complaint: Diarrhea x 3 days. Primary Care Provider: Demarco Guallpa MD This is a 82-year-old male who has a significant past medical history of HTN, HLD, CKD stage III, history of bladder cancer status postresection with presence of urostomy, alcohol abuse, tobacco abuse, macular degeneration and anxiety who presents to ED secondary to diarrhea x 3 days. Of significance patient was hospitalized at the end of November for urinary tract infection with bueno sensitive E. coli. His blood culture was negative. His Anaplasma screen and DNA came back positive therefore treated with course of doxycycline. Hospital course also complicated with JAROCHO, elevated troponin, transaminitis, thrombocytopenia low magnesium and low sodium which all resolved prior to discharge. Due to conditioning he was then discharged to [facility] on December. He was at [facility] 3 days for which he did well. He was then discharged to home. He had been doing well up until Saturday of this past week. He states family members brought over a lot of [employer] food which he ate all of. He was constipated on Saturday and Saturday for which she took an Imodium for. He thought this was for constipation. He then developed loose diarrhea and flatus on Saturday. His symptoms have continued until today. Thus far he has had 5 bowel movements today. He denies any hematochezia or melena. He further denies any nausea or vomiting. He still has an okay appetite. Home health nurse came to the house today and recommended he seek ED due to worsening symptoms. He denies any fever, chills, sweats, lightheadedness, dizziness, chest pain, shortness breath, nausea, vomiting, abdominal pain, dysuria, increased urgency or frequency with urination. He does have a ileal conduit in place and is not having any issues with this. During last hospitalization he was unaware that he had a urinary tract infection although he was encephalopathic. He smokes 3 cigarettes a day and has not had a beer in 6 weeks. He ambulates with a walker. He has been taking his medications. He has chronic low back pain and previous surgery years ago. He was recently prescribed baclofen for this and unsure if this is helping. Allergies Allergy/AdvReac Type Severity Reaction Status Date / Time meclizine Allergy Severe THROAT/TONGUE Verified 12/28/22 14:56 SWELLS aspirin AdvReac Unknown History of Verified 12/28/22 14:56 ulcers Home Medications Medication Instructions Recorded Confirmed Type acetaminophen 500 mg tablet 500 - 1,000 mg PO DIRECTED PRN 11/28/18 12/28/22 History (Tylenol Extra Strength) Pain atenolol 50 mg tablet 100 mg PO DAILY 11/28/18 12/28/22 History atorvastatin 20 mg tablet 20 mg PO PM 11/28/18 12/28/22 History cholecalciferol (vitamin D3) 10 400 unit PO DAILY 11/28/18 12/28/22 History mcg/mL (400 unit/mL) oral drops (D-Vi-Tish) clonazepam 1 mg tablet 0.5 mg PO BID PRN Anxiety 11/28/18 12/28/22 History clonazepam 1 mg tablet 1 mg PO HS PRN RESTLESSNESS 11/28/18 12/28/22 History ferrous sulfate 325 mg (65 mg 325 mg PO DAILY 11/28/18 12/28/22 History iron) tablet lorazepam 1 mg tablet 1 mg PO DIRECTED PRN BEFORE 11/28/18 12/28/22 History TRAVELING [id number] acid 400 1 tab PO DAILY 11/28/18 12/28/22 History mcg-vit K 20 mcg-lycop 300 mcg tablet (Men's One Daily) omeprazole 20 mg capsule,delayed 20 mg PO DAILYBB 11/28/18 12/28/22 History release amlodipine 5 mg tablet 5 mg PO DAILY 05/16/22 12/28/22 History trazodone 50 mg tablet 50 mg PO HS 05/16/22 12/28/22 History magnesium oxide 400 mg (241.3 mg 400 mg PO BID #30 tabs 12/05/22 12/28/22 Rx magnesium) tablet baclofen 10 mg tablet 10 mg PO BID 12/28/22 12/28/22 History nystatin 100,000 unit/gram topical 1 applic topical BID 12/28/22 12/28/22 History cream levofloxacin 750 mg tablet 750 mg PO DAILY 5 days #5 tabs 01/04/23 Rx Past Med/Surg History Medical History Anxiety CKD (chronic kidney disease), stage III Dyslipidemia History of carcinoma of bladder History of colon polyps Hypertension Macular degeneration Tinnitus Tobacco use Surgical History H/O total cystectomy with ileal conduit Status post lumbar surgery Family History Other Cancer Coronary heart disease Social History Smoking Status: Current every day smoker Tobacco Type: Cigarettes Cigarettes Per Day: 1-2 per day up to 12 per day, intermittently; Second Hand Exposure: No; Do You Dip or Chew Tobacco: No; Hx Alcohol Use: Yes Alcohol type: beer Alcohol Intake Frequency: 2-3 x/Week Hx Substance Use: No Preferred Language: Turkish Communication Ability: Effective Communication Ability Comment: Macular degeneration, legally blind Hospitality House Supervisor Required: No Beliefs That Will Affect Care: None marital status: / Current Living Situation: Alone Feels Safe at Home: Yes Safety Concerns: Feels Safe At This Time Assistive Devices: Cane and Walker Review of Systems Review of Systems: All systems reviewed & are unremarkable except as noted in HPI & below Physical Exam Physical Exam: Constitutional: WD/WN, vitals as above, NAD, sitting up in bed, pleasant, conversing easily Head: Normocephalic, Atraumatic Eyes: PERRL, conjunctivae normal, anicteric sclerae ENMT: external ear and nose normal, oropharynx normal Neck: trachea midline, no thyromegaly normal visual inspection Respiratory: normal respiratory effort, lungs clear to auscultation, no wheeze, rales, rhonchi. Normal insp/exp effort, no accessory muscle use Cardiovascular: RRR, no murmur, no edema Vessels: no JVD or carotid bruit Chest: normal inspection of chest Abdomen: normal bowel sounds, soft, nontender, no hepatosplenomegaly +ileal conduit Musculoskeletal: no cyanosis or clubbing, extremities motor strength 5/5 Skin: no rashes, warm and dry normal turgor Neurologic: PERRL, EOMI, accommodation nl, no face palsy, no dysarthria CN's II-XI intact bilaterally and moves all extremities Psychiatric: A+Ox3, euthymic affect Lymphatic: no cervical or axillary lymphadenopathy : deferred Results & Data Results & Data Vital Signs (Past 12 Hours) Vital Signs Temp Pulse Resp BP Pulse Ox 12/28/22 16:00 70 24 96 12/28/22 16:00 137/76 12/28/22 15:50 73 20 96 12/28/22 15:30 73 19 126/70 95 12/28/22 14:58 75 15 143/74 H 95 12/28/22 12:16 96 12/28/22 12:13 16 12/28/22 12:13 36.9 C 74 16 134/70 94 12/28/22 12:11 72 Diagnostic Findings Abdomen/Pelvis CT 12/28/22 13:25 CT abd pelvis wo con CLINICAL HISTORY: diarrhea TECHNIQUE: Helical axial images of the abdomen and pelvis were obtained. Automated dose lowering techniques and/or adjustment according to patient size were utilized for this exam. This exam was performed without intravenous contrast. CT DOSE: 1109.45 mGy.cm COMPARISON: None available at the time of this dictation. FINDINGS: Lower chest: Bibasilar atelectasis versus scarring is seen. Liver: Unremarkable. No focal lesions are seen. Gallbladder and biliary tree: No calcified gallstones. Normal caliber wall. No intra- or extrahepatic biliary ductal dilation. Pancreas: Unremarkable, no focal lesions. Spleen: Unremarkable. Adrenals: Unremarkable. Kidneys and ureters: Perinephric stranding is noted bilaterally. Bladder: Status post cystectomy with a ileal conduit noted. Reproductive organs: Not well seen. Bowel: There is mild thickening of the rectal wall. Limited contents are noted in the colon. The appendix is normal. There are postsurgical changes of bowel resection. Lymph nodes Retroperitoneal: Subcentimeter lymph nodes are noted. Pelvic: Unremarkable. Mesenteric: Unremarkable. Peritoneum: Normal. Vessels: Atherosclerotic calcifications are seen. Abdominal wall: Unremarkable. Bones: Degenerative changes in the visualized spine. Multilevel compression deformities are seen and lumbar spine, chronic. IMPRESSION: 1. Mild wall thickening of the rectum may represent an element of proctitis. Liquid contents are compatible with diarrhea. 2. Patient is status post ileal conduit formation. ACT 112: Negative or not required by law. Electronically signed by: Vipin Amos M.D. 12/28/2022 2:30 PM Medications Administered Medication List Discontinued Medications Sodium Chloride (Nss 1000ml) 1,000 mls @ 999 mls/hr IV .Q1H1M ONE Stop: 12/28/22 13:16 Last Infusion: 12/28/22 13:14 Dose: 0 mls/hr Documented By: Admin: 12/28/22 12:21 Dose: 999 mls/hr Documented By: ALEKSANDER Sodium Chloride (Nss 1000ml) 1,000 mls @ 999 mls/hr IV .Q1H1M ONE Stop: 12/28/22 14:18 Last Infusion: 12/28/22 14:28 Dose: 0 mls/hr Documented By: Admin: 12/28/22 13:20 Dose: 999 mls/hr Documented By: RSL ECG Additional Comments: ecg 11/28/[address] 109bpm, no s t or t wave change COVID-19 Results Results COVID-19 Adm Lab Results: RBC 3.63 M/uL (4.70-6.10) L 01/03/23 WBC 11.43 K/ul (4.8-10.8) H 01/03/23 Hgb 11.5 g/dl (14.0-18.0) L 01/03/23 Hct 34.1 % (42.0-52.0) L 01/03/23 Plt Count 331 K/uL (130-400) 01/03/23 Neutrophils (%) (Auto) 51.5 % 12/29/22 Lymphocytes (%) (Auto) 34.4 % 12/29/22 Monocytes # (Auto) 1.12 K/uL (0.11-0.59) H 12/29/22 Eosinophils # (Auto) 0.30 K/uL (0.00-0.50) 12/29/22 Immature Granulocyte % (Auto) 1.1 % 12/29/22 Neutrophils # (Auto) 5.88 K/uL (1.40-6.50) 12/29/22 Lymphocytes # (Auto) 3.93 K/uL (1.20-3.40) H 12/29/22 Monocytes # (Auto) 1.12 K/uL (0.11-0.59) H 12/29/22 Eosinophils # (Auto) 0.30 K/uL (0.00-0.50) 12/29/22 Basophils # (Auto) 0.07 K/uL (0.00-0.20) 12/29/22 Immature Granulocyte # (Auto) 0.12 K/uL (0.01-0.20) 3 Na 135 mmol/L (136-145) L 01/04/23 K 3.8 mmol/L (3.5-5.1) 01/04/23 Cl 105 mmol/L (98-107) 01/04/23 CO2 23 mmol/L (21-32) 01/04/23 Anion Gap 7 (3-11) 01/04/23 BUN 14 mg/dl (6-23) 01/04/23 Creatinine 1.10 mg/dl (0.6-1.4) 01/04/23 BUN/Creatinine Ratio 12.7 (10-20) 01/04/23 Glucose Level 131 mg/dl (70-99(Fasting)) H 01/04/23 Ca 8.6 mg/dl (8.6-10.3) 01/04/23 Phosphorus Level 2.7 mg/dl (2.5-4.9) 01/02/23 Total Bilirubin 0.6 mg/dl (0.2-1.0) 12/29/22 AST/SGOT 15 U/L (13-39) 12/29/22 ALT/SGPT 10 U/L (7-52) 12/29/22 Alkaline Phosphatase 78 U/L (34-104) 12/29/22 Total Protein 5.6 gm/dl (6.0-8.3) L 12/29/22 Albumin 2.9 gm/dl (3.4-5.0) L 12/29/22 Globulin 2.7 gm/dl (2.5-4.0) 12/29/22 Albumin/Globulin Ratio 1.1 (0.9-2) 12/29/22 Code Status & VTE Plan Code Status FULL CODE Supervising Physician Co-Signing Physician Notes Pt was seen and examined. Agreed with Lis FRANCISCO exam, assessment and plan. 82-year-old male with past medical history of HTN, HLD, CKD stage III, history of bladder cancer status postresection with presence of urostomy, alcohol abuse, tobacco abuse, macular degeneration and anxiety who presents to ED secondary to diarrhea. Pt said that diarrhea started 3 days ago. He said that every time he ate something that he had to go to the bathroom. He said that he has been eating alot of food from the [employer].He was constipated on Saturday and Saturday for which she took an Imodium. He said that he had multiple epsisode of diarrhea. denies any fever, chills, sweats, lightheadedness, dizziness, chest pain, shortness breath, nausea, vomiting. CT abd/pelvis showed mild wall thickening of the rectum may represent an element of proctitis. Liquid contents are compatible with diarrhea. UA positive for for UTI. Conrinue IVF. Will start on IV zosyn to cover GI and UTI. Will check urine cx. Will check stool for Cdiff. Monitor electrolytes. Advanced diet slowly as tolerated. Continue monitor closely. MD Florecita .
[2022-12-28 16:52] LABS: Adenovirus F 40/41 PCR Not Detected (NotDetected); Astrovirus PCR Not Detected (NotDetected); Campylobacter PCR Not Detected (NotDetected); Cryptosporidium PCR Not Detected (NotDetected); Cyclospora cayetanensis PCR Not Detected (NotDetected); Entamoeba histolytica PCR Not Detected (NotDetected); Enteroaggregative E.coli(EAEC) Not Detected (NotDetected); Enteropathogenic E.coli (EPEC) Not Detected (NotDetected); Enterotoxigenic E.coli (ETEC) Not Detected (NotDetected); Giardia lamblia PCR Not Detected (NotDetected); Norovirus GI/GII PCR Not Detected (NotDetected); Plesiomonas shigelloides PCR Not Detected (NotDetected); Rotavirus A PCR Not Detected (NotDetected); Salmonella PCR Not Detected (NotDetected); Sapovirus PCR Not Detected (NotDetected); Shiga-like Toxin E.coli (STEC) Not Detected (NotDetected); Shigella/Enteroinvasive E.coli Not Detected (NotDetected); Vibrio cholerae PCR Not Detected (NotDetected); Vibrio species PCR Not Detected (NotDetected); Yersinia enterocolitica PCR Not Detected (NotDetected)
[2022-12-28 17:36] LABS: Magnesium 1.7 mg/dl (1.7-2.4)
[2022-12-28] MEDS ORDERED: LOPERAMIDE HCL 2 MG CAP PO PRN (19:58)
[2022-12-28] MEDS ORDERED: clonazePAM 0.5 MG TAB PO PRN (20:00)
[2022-12-28] MEDS ORDERED: ONDANSETRON INJ 2 MG/ML 2 ML VIAL IV PRN (20:00)
[2022-12-28] MEDS ORDERED: ALUMINUM/MAGNESIUM SUSP 30 ML UDC PO PRN (20:00)
[2022-12-28] MEDS ORDERED: ACETAMINOPHEN 325 MG TAB PO PRN (20:00)
[2022-12-28] MEDS ORDERED: PIPERACILLIN/TAZOBACTAM 4.5 GM in DEXTROSE 5% 100 ML IV ONE (20:30)
[2022-12-28] MEDS: BACLOFEN 10 MG TAB PO SCH (22:00)
[2022-12-28] MEDS: ATORVASTATIN 20 MG TAB PO SCH (22:00)
[2022-12-29] MEDS ORDERED: MELATONIN 3 MG TAB PO PRN (00:56)
[2022-12-29] MEDS: PIPERACILLIN/TAZOBACTAM 4.5 GM in DEXTROSE 5% 100 ML IV SCH ×3 (02:00→18:00)
[2022-12-29] MEDS: PANTOprazole 40 MG TAB PO SCH (06:02)
[2022-12-29 06:46] LABS: Basophils # (auto) 0.07 K/uL (0.00-0.20); Basophils % (auto) 0.6 %; Eosinophils % (auto) 2.6 %; Hematocrit (blood only) 33.2 % (42.0-52.0); Hemoglobin 11.3 g/dl (14.0-18.0); Immature Granulocytes # (auto) 0.12 K/uL (0.01-0.20); Immature Granulocytes % (auto) 1.1 %; Lymphocytes # (auto) 3.93 K/uL (1.20-3.40); Lymphocytes % (auto) 34.4 %; Mean Corpuscular Hemoglobin 32.1 pg (25.0-34.0); Mean Corpuscular Volume 94.3 fL (80.0-100.0); Mean Platelet Volume 9.5 fL (9.4-12.4); Monocytes # (auto) 1.12 K/uL (0.11-0.59); Monocytes % (auto) 9.8 %; Neutrophils # (auto) 5.88 K/uL (1.40-6.50); Neutrophils % (auto) 51.5 %; Platelet Count 254 K/uL (130-400); RDW Coefficient of Variation 13.3 % (11.5-14.5); RDW Standard Deviation 46.2 fL (36.4-46.3); Red Blood Count 3.52 M/uL (4.70-6.10); White Blood Count 11.42 K/ul (4.8-10.8)
[2022-12-29] MEDS: BACLOFEN 10 MG TAB PO SCH ×2 (07:43→21:44)
[2022-12-29] MEDS: amLODIPine BESYLATE 5 MG TAB PO SCH (07:44)
[2022-12-29] MEDS: CHOLECALCIFEROL 400 UNITS 10 MCG TAB PO SCH (07:44)
[2022-12-29] MEDS: FERROUS SULFATE 325 MG TAB PO SCH (07:44)
[2022-12-29] MEDS: ATENOLOL 50 MG TABLET PO SCH (07:44)
[2022-12-29] MEDS: ADVANCED PROBIOTIC 1250 MG CAPSULE PO SCH (07:45)
[2022-12-29] MEDS: ENOXAPARIN INJ 40 MG/0.4 ML SYR SQ SCH (07:45)
[2022-12-29 08:04] LABS: Albumin Globulin Ratio 1.1 (0.9-2); Albumin Level 2.9 gm/dl (3.4-5.0); BUN Creatinine Ratio 14.4 (10-20); Bilirubin,Total 0.6 mg/dl (0.2-1.0); Calcium 8.3 mg/dl (8.6-10.3); Creatinine Clr Calc Pharmacy 53.9 ml/min; Est GFR (African American) 66.7 ml/min; Est GFR (Non-African American) 57.5 ml/min; Globulin 2.7 gm/dl (2.5-4.0); Magnesium 1.5 mg/dl (1.7-2.4); Potassium 3.9 mmol/L (3.5-5.1); Total Protein 5.6 gm/dl (6.0-8.3)
--- NOTE | 2022-12-29 09:57 | Gastrointestinal Consultation ---
Date of Consultation December 29, 2022 Assessment & Plan (1) Diarrhea: Acute episode of diarrhea that is resolving. He did have a leukocytosis on presentation but it is better today. He also had "proctitis" on CT scan. Since he is improving I would not do anything invasive at this time. In fact he seems almost ready for discharge. I would assume everything is of an acute nature at this time since it has only been two days and his symptoms are improved. He does not have bloody stools which we normally see with proctitis. If symptoms persist or change then would suggest colonoscopy as it has been more than five years since his last one but don't plan anything now. History of Present Illness Reason for Consultation: diarrhea Attending Physician: Abbie Jackson MD History of Present Illness 82 year old man who ate "[employer] Fair food" on and then night started having diarrhea. That night he went to the bathroom every 15 minutes or so. Yesterday the diarrhea persisted so he came to hospital. Today he is much better with only two small amounts of semiformed stool. He had no abdominal pain with this but did have anal burning. He has had no fever or chills. He denies nausea or vomiting with it. In fact, today he feels good. He did have diarrhea earlier this year of the same presentation and it was recommended that if it persisted he have a colonoscopy for microscopic colitis. However the diarrhea went away and he was doing great until night. He denies blood in his stool. Allergies Allergy/AdvReac Type Severity Reaction Status Date / Time meclizine Allergy Severe THROAT/TONGUE Verified 12/28/22 14:56 SWELLS aspirin AdvReac Unknown History of Verified 12/28/22 14:56 ulcers Home Medications Medication Instructions Recorded Confirmed Type acetaminophen 500 mg tablet 500 - 1,000 mg PO DIRECTED PRN 11/28/18 12/28/22 History (Tylenol Extra Strength) Pain atenolol 50 mg tablet 100 mg PO DAILY 11/28/18 12/28/22 History atorvastatin 20 mg tablet 20 mg PO PM 11/28/18 12/28/22 History cholecalciferol (vitamin D3) 10 400 unit PO DAILY 11/28/18 12/28/22 History mcg/mL (400 unit/mL) oral drops (D-Vi-Tish) clonazepam 1 mg tablet 0.5 mg PO BID PRN Anxiety 11/28/18 12/28/22 History clonazepam 1 mg tablet 1 mg PO HS PRN RESTLESSNESS 11/28/18 12/28/22 History ferrous sulfate 325 mg (65 mg 325 mg PO DAILY 11/28/18 12/28/22 History iron) tablet lorazepam 1 mg tablet 1 mg PO DIRECTED PRN BEFORE 11/28/18 12/28/22 History TRAVELING mewmccrh-khhzhekn-swnhx acid 400 1 tab PO DAILY 11/28/18 12/28/22 History mcg-vit K 20 mcg-lycop 300 mcg tablet (Men's One Daily) omeprazole 20 mg capsule,delayed 20 mg PO DAILYBB 11/28/18 12/28/22 History release amlodipine 5 mg tablet 5 mg PO DAILY 05/16/22 12/28/22 History trazodone 50 mg tablet 50 mg PO HS 05/16/22 12/28/22 History magnesium oxide 400 mg (241.3 mg 400 mg PO BID #30 tabs 12/05/22 12/28/22 Rx magnesium) tablet baclofen 10 mg tablet 10 mg PO BID 12/28/22 12/28/22 History nystatin 100,000 unit/gram topical 1 applic topical BID 12/28/22 12/28/22 History cream Patient History Medical History Anxiety CKD (chronic kidney disease), stage III Dyslipidemia History of carcinoma of bladder History of colon polyps Hypertension Macular degeneration Tinnitus Tobacco use Surgical History H/O total cystectomy with ileal conduit Status post lumbar surgery Family History Other Cancer Coronary heart disease Social History Smoking Status: Current every day smoker Tobacco Type: Cigarettes Cigarettes Per Day: 1-2 per day up to 12 per day, intermittently; Second Hand Exposure: No; Do You Dip or Chew Tobacco: No; Hx Alcohol Use: Yes Alcohol type: beer Alcohol Intake Frequency: 2-3 x/Week Hx Substance Use: No Preferred Language: Citizen Of [place] Communication Ability: Effective Communication Ability Comment: Macular degeneration, legally blind 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 Required: No Beliefs That Will Affect Care: None marital status: / Current Living Situation: Alone Feels Safe at Home: Yes Safety Concerns: Feels Safe At This Time Assistive Devices: Cane, Denture - Upper, Denture - Lower and Walker Review of Systems Review of Systems: All systems reviewed & are unremarkable except as noted in HPI & below Physical Exam Constitutional: WD/WN, vitals as above no acute distress Eyes: PERRL, conjunctivae normal, anicteric sclerae ENMT: external ear and nose normal, oropharynx normal Neck: trachea midline, no thyromegaly Respiratory: normal respiratory effort, lungs clear to auscultation Cardiovascular: RRR, no murmur, no edema Gastrointestinal (Abdomen): normal bowel sounds, soft, nontender, no hepatosplenomegaly Musculoskeletal: Extremities: no cyanosis and no clubbing Skin: no rashes, warm and dry Neurologic: PERRL, EOMI, accommodation nl, no face palsy, no dysarthria Psychiatric: Orientation: alert and oriented x 3 Results & Data Vital Signs (Past 12 Hours) Vital Signs Temp Pulse Pulse Resp BP BP Pulse Ox 12/29/22 09:04 12/29/22 08:48 72 12/29/22 07:02 36.9 C 69 18 124/73 95 12/28/22 22:07 81 12/29/22 02:40 36.6 C 76 18 128/74 95 12/28/22 23:01 37.1 C 76 18 103/59 L 95 O2 Del Method 12/29/22 09:04 Room Air 12/29/22 08:48 12/29/22 07:02 Room Air 12/28/22 22:07 12/29/22 02:40 Room Air 12/28/22 23:01 Room Air Laboratory Results 12/29/22 12/29/22 12/28/22 Range/Units 06:13 06:13 15:06 WBC 11.42 H RBC 3.52 L Hgb 11.3 L Hct 33.2 L MCV 94.3 MCH 32.1 MCHC 34.0 RDW Std Deviation 46.2 RDW Coeff of Hemanth 13.3 Plt Count 254 MPV 9.5 Immature Gran % (Auto) 1.1 Neut % (Auto) 51.5 Lymph % (Auto) 34.4 [place] % (Auto) 9.8 Eos % (Auto) 2.6 Baso % (Auto) 0.6 Neut # (Auto) 5.88 Lymph # (Auto) 3.93 H [place] # (Auto) 1.12 H Eos # (Auto) 0.30 Baso # (Auto) 0.07 Immature Gran # (Auto) 0.12 Absolute Nucleated RBC Nucleated RBC % (auto) Neutrophils % (Manual) Band Neutrophils % Lymphocytes % (Manual) Prolymphocyte % Reactive Lymphs % (Man) Monocytes % (Manual) Eosinophils % (Manual) Basophils % (Manual) Metamyelocytes % (Man) Myelocytes % (Man) Promyelocytes % (Man) Blast Cells % (Manual) Plasma Cell % (Manual) Other Cells % Nucleated RBC % Neutrophils # (Manual) Band Neutrophils # Total Absolute Neuts Lymphocytes # (Manual) Prolymphocyte # Reactive Lymphs # Total Abs Lymphocytes Monocytes # (Manual) Eosinophils # (Manual) Basophils # (Manual) Metamyelocytes # (Man) Myelocytes # (Manual) Promyelocytes # (Man) Blast Cells # (Man) Plasma Cell # (Manual) Other Cells # Nucleated RBCs # (Man) Hypersegmented Neuts Hyposegmented Neuts Hypogranular Neuts Large Granular Lymphs # Lrg Granular Lymphs Hairy Cells Smudge Cells Toxic Granulation Toxic Vacuolation Dohle Bodies Ingris Rods Platelet Estimate Hypogranular Platelets Giant Platelets Platelet Satelliting RBC Morphology Polychromasia Hypochromasia Poikilocytosis Basophilic Stippling Anisocytosis Microcytosis Macrocytosis Spherocytes Pappenheimer Bodies Sickle Cells Target Cells Tear Drop Cells Ovalocytes Stomatocytes Sahni-Poth Bodies Echinocytes Acanthocytes (Spur) Rouleaux RBC Agglutinates Schistocytes Sezary Cell Sodium 133 L (136-145) mmol/L Potassium 3.9 (3.5-5.1) mmol/L Chloride 105 (98-107) mmol/L Carbon Dioxide 20 L (21-32) mmol/L Anion Gap 8 (3-11) BUN 17 (6-23) mg/dl Creatinine 1.18 (0.6-1.4) mg/dl Est Cr Clr Drug Dosing 53.9 ml/min Est GFR ( Amer) 66.7 ml/min Est GFR (Non-Af Amer) 57.5 ml/min BUN/Creatinine Ratio 14.4 (10-20) Glucose 96 (70-99(Fasting)) mg/dl Lactate (0.4-2.0) mmol/L Calcium 8.3 L (8.6-10.3) mg/dl Magnesium 1.5 L (1.7-2.4) mg/dl Total Bilirubin 0.6 (0.2-1.0) mg/dl AST 15 (13-39) U/L ALT 10 (7-52) U/L Alkaline Phosphatase 78 (34-104) U/L Total Protein 5.6 L (6.0-8.3) gm/dl Albumin 2.9 L (3.4-5.0) gm/dl Globulin 2.7 (2.5-4.0) gm/dl Albumin/Globulin Ratio 1.1 (0.9-2) Lipase (11-82) U/L Urine Color Urine Appearance (Clear) Urine pH (4.5-7.5) Ur Specific [place] (1.000-1.030) Urine Protein (Negative) Urine Glucose (UA) (Negative) Urine Ketones (Negative) Urine Blood (Negative) Urine Nitrite (Negative) Urine Bilirubin (Negative) Urine Urobilinogen (Negative) Ur Leukocyte Esterase (Negative) Urine WBC (Auto) (0-5) /hpf Urine RBC (Auto) (0-4) /hpf U Hyaline Cast (Auto) (0-5) /lpf U Epithel Cells (Auto) (0-5) /lpf Urine Bacteria (Auto) (Negative) Ur Renal Epithelial Cell Urine Sperm (None Prsent) Stl C. cayetanensis PCR (NotDetected) Stool Rotavirus A PCR (NotDetected) Stl Adenov F 40/41 PCR (NotDetected) Stool Astrovirus (PCR) (NotDetected) Stool Campylobacter PCR (NotDetected) Stl C. diff Tox B Gene Negative Cdiff Gene (Neg) Stool Cryptosporidium PCR (NotDetected) Stl E.coli Shiga Tox PCR (NotDetected) Stl Enterotoxigenic E PCR (NotDetected) Stool EPEC (PCR) (NotDetected) Stool EAEC (PCR) (NotDetected) Stl E. histolytica PCR (NotDetected) Stool Giardia Lamblia PCR (NotDetected) Stool Salmonella PCR (NotDetected) Stool Sapovirus (PCR) (NotDetected) Stl P. shigelloides PCR (NotDetected) Stl Shigella/EIEC PCR (NotDetected) St Y.enterocolitica PCR (NotDetected) Stool Vibrio (PCR) (NotDetected) Stl Vibrio cholerae PCR (NotDetected) Stl Norovirus GI/GII PCR (NotDetected) Blood Parasites ID 12/28/22 12/28/22 12/28/22 Range/Units 15:06 15:06 13:01 WBC 15.14 H RBC 3.19 L Hgb 10.1 L Hct 30.1 L MCV 94.4 MCH 31.7 MCHC 33.6 RDW Std Deviation 48.2 H RDW Coeff of Hemanth 13.9 Plt Count 253 MPV 9.4 Immature Gran % (Auto) 0.7 Neut % (Auto) 60.2 Lymph % (Auto) 27.3 [place] % (Auto) 9.7 Eos % (Auto) 1.6 Baso % (Auto) 0.5 Neut # (Auto) 9.11 H Lymph # (Auto) 4.13 H [place] # (Auto) 1.47 H Eos # (Auto) 0.24 Baso # (Auto) 0.08 Immature Gran # (Auto) 0.11 Absolute Nucleated RBC Nucleated RBC % (auto) Neutrophils % (Manual) Band Neutrophils % Lymphocytes % (Manual) Prolymphocyte % Reactive Lymphs % (Man) Monocytes % (Manual) Eosinophils % (Manual) Basophils % (Manual) Metamyelocytes % (Man) Myelocytes % (Man) Promyelocytes % (Man) Blast Cells % (Manual) Plasma Cell % (Manual) Other Cells % Nucleated RBC % Neutrophils # (Manual) Band Neutrophils # Total Absolute Neuts Lymphocytes # (Manual) Prolymphocyte # Reactive Lymphs # Total Abs Lymphocytes Monocytes # (Manual) Eosinophils # (Manual) Basophils # (Manual) Metamyelocytes # (Man) Myelocytes # (Manual) Promyelocytes # (Man) Blast Cells # (Man) Plasma Cell # (Manual) Other Cells # Nucleated RBCs # (Man) Hypersegmented Neuts Hyposegmented Neuts Hypogranular Neuts Large Granular Lymphs # Lrg Granular Lymphs Hairy Cells Smudge Cells Toxic Granulation Toxic Vacuolation Dohle Bodies Ingris Rods Platelet Estimate Hypogranular Platelets Giant Platelets Platelet Satelliting RBC Morphology Polychromasia Hypochromasia Poikilocytosis Basophilic Stippling Anisocytosis Microcytosis Macrocytosis Spherocytes Pappenheimer Bodies Sickle Cells Target Cells Tear Drop Cells Ovalocytes Stomatocytes Sahni-Poth Bodies Echinocytes Acanthocytes (Spur) Rouleaux RBC Agglutinates Schistocytes Sezary Cell Sodium (136-145) mmol/L Potassium (3.5-5.1) mmol/L Chloride (98-107) mmol/L Carbon Dioxide (21-32) mmol/L Anion Gap (3-11) BUN (6-23) mg/dl Creatinine (0.6-1.4) mg/dl Est Cr Clr Drug Dosing ml/min Est GFR ( Amer) ml/min Est GFR (Non-Af Amer) ml/min BUN/Creatinine Ratio (10-20) Glucose (70-99(Fasting)) mg/dl Lactate (0.4-2.0) mmol/L Calcium (8.6-10.3) mg/dl Magnesium (1.7-2.4) mg/dl Total Bilirubin (0.2-1.0) mg/dl AST (13-39) U/L ALT (7-52) U/L Alkaline Phosphatase (34-104) U/L Total Protein (6.0-8.3) gm/dl Albumin (3.4-5.0) gm/dl Globulin (2.5-4.0) gm/dl Albumin/Globulin Ratio (0.9-2) Lipase (11-82) U/L Urine Color Yellow Urine Appearance Clear (Clear) Urine pH 6.5 (4.5-7.5) Ur Specific [place] 1.008 (1.000-1.030) Urine Protein Negative (Negative) Urine Glucose (UA) Negative (Negative) Urine Ketones Negative (Negative) Urine Blood 3+ H (Negative) Urine Nitrite Positive A (Negative) Urine Bilirubin Negative (Negative) Urine Urobilinogen Negative (Negative) Ur Leukocyte Esterase 1+ H (Negative) Urine WBC (Auto) 5-10 H (0-5) /hpf Urine RBC (Auto) 10-30 H (0-4) /hpf U Hyaline Cast (Auto) 1-5 (0-5) /lpf U Epithel Cells (Auto) 10-20 H (0-5) /lpf Urine Bacteria (Auto) 4+ H (Negative) Ur Renal Epithelial Cell Not Reportable Urine Sperm Present A (None Prsent) Stl C. cayetanensis PCR Not Detected (NotDetected) Stool Rotavirus A PCR Not Detected (NotDetected) Stl Adenov F 40/41 PCR Not Detected (NotDetected) Stool Astrovirus (PCR) Not Detected (NotDetected) Stool Campylobacter PCR Not Detected (NotDetected) Stl C. diff Tox B Gene (Neg) Stool Cryptosporidium PCR Not Detected (NotDetected) Stl E.coli Shiga Tox PCR Not Detected (NotDetected) Stl Enterotoxigenic E PCR Not Detected (NotDetected) Stool EPEC (PCR) Not Detected (NotDetected) Stool EAEC (PCR) Not Detected (NotDetected) Stl E. histolytica PCR Not Detected (NotDetected) Stool Giardia Lamblia PCR Not Detected (NotDetected) Stool Salmonella PCR Not Detected (NotDetected) Stool Sapovirus (PCR) Not Detected (NotDetected) Stl P. shigelloides PCR Not Detected (NotDetected) Stl Shigella/EIEC PCR Not Detected (NotDetected) St Y.enterocolitica PCR Not Detected (NotDetected) Stool Vibrio (PCR) Not Detected (NotDetected) Stl Vibrio cholerae PCR Not Detected (NotDetected) Stl Norovirus GI/GII PCR Not Detected (NotDetected) Blood Parasites ID 12/28/22 12/28/22 12/28/22 Range/Units 12:29 12:12 12:12 WBC Cancelled RBC Cancelled Hgb Cancelled Hct Cancelled MCV Cancelled MCH Cancelled MCHC Cancelled RDW Std Deviation Cancelled RDW Coeff of Hemanth Cancelled Plt Count Cancelled MPV Cancelled Immature Gran % (Auto) Cancelled Neut % (Auto) Cancelled Lymph % (Auto) Cancelled [place] % (Auto) Cancelled Eos % (Auto) Cancelled Baso % (Auto) Cancelled Neut # (Auto) Cancelled Lymph # (Auto) Cancelled [place] # (Auto) Cancelled Eos # (Auto) Cancelled Baso # (Auto) Cancelled Immature Gran # (Auto) Cancelled Absolute Nucleated RBC Cancelled Nucleated RBC % (auto) Cancelled Neutrophils % (Manual) Cancelled Band Neutrophils % Cancelled Lymphocytes % (Manual) Cancelled Prolymphocyte % Cancelled Reactive Lymphs % (Man) Cancelled Monocytes % (Manual) Cancelled Eosinophils % (Manual) Cancelled Basophils % (Manual) Cancelled Metamyelocytes % (Man) Cancelled Myelocytes % (Man) Cancelled Promyelocytes % (Man) Cancelled Blast Cells % (Manual) Cancelled Plasma Cell % (Manual) Cancelled Other Cells % Cancelled Nucleated RBC % Cancelled Neutrophils # (Manual) Cancelled Band Neutrophils # Cancelled Total Absolute Neuts Cancelled Lymphocytes # (Manual) Cancelled Prolymphocyte # Cancelled Reactive Lymphs # Cancelled Total Abs Lymphocytes Cancelled Monocytes # (Manual) Cancelled Eosinophils # (Manual) Cancelled Basophils # (Manual) Cancelled Metamyelocytes # (Man) Cancelled Myelocytes # (Manual) Cancelled Promyelocytes # (Man) Cancelled Blast Cells # (Man) Cancelled Plasma Cell # (Manual) Cancelled Other Cells # Cancelled Nucleated RBCs # (Man) Cancelled Hypersegmented Neuts Cancelled Hyposegmented Neuts Cancelled Hypogranular Neuts Cancelled Large Granular Lymphs Cancelled # Lrg Granular Lymphs Cancelled Hairy Cells Cancelled Smudge Cells Cancelled Toxic Granulation Cancelled Toxic Vacuolation Cancelled Dohle Bodies Cancelled Ingris Rods Cancelled Platelet Estimate Cancelled Hypogranular Platelets Cancelled Giant Platelets Cancelled Platelet Satelliting Cancelled RBC Morphology Cancelled Polychromasia Cancelled Hypochromasia Cancelled Poikilocytosis Cancelled Basophilic Stippling Cancelled Anisocytosis Cancelled Microcytosis Cancelled Macrocytosis Cancelled Spherocytes Cancelled Pappenheimer Bodies Cancelled Sickle Cells Cancelled Target Cells Cancelled Tear Drop Cells Cancelled Ovalocytes Cancelled Stomatocytes Cancelled Sahni-Poth Bodies Cancelled Echinocytes Cancelled Acanthocytes (Spur) Cancelled Rouleaux Cancelled RBC Agglutinates Cancelled Schistocytes Cancelled Sezary Cell Cancelled Sodium 133 L (136-145) mmol/L Potassium 4.2 (3.5-5.1) mmol/L Chloride 103 (98-107) mmol/L Carbon Dioxide 24 (21-32) mmol/L Anion Gap 6 (3-11) BUN 23 (6-23) mg/dl Creatinine 1.47 H (0.6-1.4) mg/dl Est Cr Clr Drug Dosing 42.5 ml/min Est GFR ( Amer) 51.1 ml/min Est GFR (Non-Af Amer) 44.1 ml/min BUN/Creatinine Ratio 15.6 (10-20) Glucose 93 (70-99(Fasting)) mg/dl Lactate 0.7 (0.4-2.0) mmol/L Calcium 8.9 (8.6-10.3) mg/dl Magnesium 1.7 (1.7-2.4) mg/dl Total Bilirubin 0.6 (0.2-1.0) mg/dl AST 17 (13-39) U/L ALT 12 (7-52) U/L Alkaline Phosphatase 96 (34-104) U/L Total Protein 6.4 (6.0-8.3) gm/dl Albumin 3.4 (3.4-5.0) gm/dl Globulin 3.0 (2.5-4.0) gm/dl Albumin/Globulin Ratio 1.1 (0.9-2) Lipase 18 (11-82) U/L Urine Color Urine Appearance (Clear) Urine pH (4.5-7.5) Ur Specific [place] (1.000-1.030) Urine Protein (Negative) Urine Glucose (UA) (Negative) Urine Ketones (Negative) Urine Blood (Negative) Urine Nitrite (Negative) Urine Bilirubin (Negative) Urine Urobilinogen (Negative) Ur Leukocyte Esterase (Negative) Urine WBC (Auto) (0-5) /hpf Urine RBC (Auto) (0-4) /hpf U Hyaline Cast (Auto) (0-5) /lpf U Epithel Cells (Auto) (0-5) /lpf Urine Bacteria (Auto) (Negative) Ur Renal Epithelial Cell Urine Sperm (None Prsent) Stl C. cayetanensis PCR (NotDetected) Stool Rotavirus A PCR (NotDetected) Stl Adenov F 40/41 PCR (NotDetected) Stool Astrovirus (PCR) (NotDetected) Stool Campylobacter PCR (NotDetected) Stl C. diff Tox B Gene (Neg) Stool Cryptosporidium PCR (NotDetected) Stl E.coli Shiga Tox PCR (NotDetected) Stl Enterotoxigenic E PCR (NotDetected) Stool EPEC (PCR) (NotDetected) Stool EAEC (PCR) (NotDetected) Stl E. histolytica PCR (NotDetected) Stool Giardia Lamblia PCR (NotDetected) Stool Salmonella PCR (NotDetected) Stool Sapovirus (PCR) (NotDetected) Stl P. shigelloides PCR (NotDetected) Stl Shigella/EIEC PCR (NotDetected) St Y.enterocolitica PCR (NotDetected) Stool Vibrio (PCR) (NotDetected) Stl Vibrio cholerae PCR (NotDetected) Stl Norovirus GI/GII PCR (NotDetected) Blood Parasites ID Cancelled Diagnostic Findings Abdomen/Pelvis CT 12/28/22 13:25 CT abd pelvis wo con CLINICAL HISTORY: diarrhea TECHNIQUE: Helical axial images of the abdomen and pelvis were obtained. Automated dose lowering techniques and/or adjustment according to patient size were utilized for this exam. This exam was performed without intravenous contrast. CT DOSE: 1109.45 mGy.cm COMPARISON: None available at the time of this dictation. FINDINGS: Lower chest: Bibasilar atelectasis versus scarring is seen. Liver: Unremarkable. No focal lesions are seen. Gallbladder and biliary tree: No calcified gallstones. Normal caliber wall. No intra- or extrahepatic biliary ductal dilation. Pancreas: Unremarkable, no focal lesions. Spleen: Unremarkable. Adrenals: Unremarkable. Kidneys and ureters: Perinephric stranding is noted bilaterally. Bladder: Status post cystectomy with a ileal conduit noted. Reproductive organs: Not well seen. Bowel: There is mild thickening of the rectal wall. Limited contents are noted in the colon. The appendix is normal. There are postsurgical changes of bowel resection. Lymph nodes Retroperitoneal: Subcentimeter lymph nodes are noted. Pelvic: Unremarkable. Mesenteric: Unremarkable. Peritoneum: Normal. Vessels: Atherosclerotic calcifications are seen. Abdominal wall: Unremarkable. Bones: Degenerative changes in the visualized spine. Multilevel compression deformities are seen and lumbar spine, chronic. IMPRESSION: 1. Mild wall thickening of the rectum may represent an element of proctitis. Liquid contents are compatible with diarrhea. 2. Patient is status post ileal conduit formation. ACT 112: Negative or not required by law. Electronically signed by: Vipin Amos M.D. 12/28/2022 2:30 PM
[2022-12-29] MEDS: MAGNESIUM SULFATE / D5W 1 GM/100 ML BAG IV SCH ×2 (13:27→15:01)
[2022-12-29] MEDS ORDERED: DICLOFENAC SOD 1% GEL 100 GM TUBE EXT PRN (14:01)
--- NOTE | 2022-12-29 14:04 | Hospitalist Progress Note ---
Date of Service December 29, 2022 Assessment & Plan (1) Diarrhea: (2) Acute UTI (urinary tract infection): (3) Acute proctitis: Plan 82-year-old male who has a significant past medical history of HTN, HLD, CKD stage III, history of bladder cancer status postresection with presence of urostomy, alcohol abuse, tobacco abuse, macular degeneration and anxiety who presents to ED secondary to diarrhea x 3 days. He is being managed for the following: Acute Proctitis Diarrhea recent antibiotic use, stool pcr/c diff negative. Likely 2/2 [employer] food ate recently. Improving diarrhea already, improving appetite. Continue supportive Patient was started on Zosyn 12/28 for proctitis, will complete 7 days antibiotic therapy. Utilize Imodium as needed. Encourage p.o. intake. Monitor and replete electrolytes, use IV mag until diarrhea resolves. GI evaluated, appreciate recommendation Orthostatic vitals pending Acute UTI, complicated recent UTI at end of November, pansensitive E. Coli wbc 15k at presentation, will empirically tx with pip/tazo for GI coverage as well, continue with probiotic await urine culture, gram-negative bacilli CKD-3/dehydration: Secondary to acute diarrhea renal function stable, chronic cr slightly up at 1.47 at presentation, baseline 1.2. Does not qualify for JAROCHO diagnosis Status post IV fluid. Resolved Hx of Bladder ca s/p ileal conduit HTN bp stable, chronic continue atenolol and amlodipine HLD chronic, stable continue statin Hx of ETOH abuse no alcohol in 6 weeks encourage to continue to abstain Tobacco abuse encourage cessation Chronic back pain recently placed on baclofen as OP, monitor DVT ppx: SQ Lovenox Dispo: med tele, consult PT/OT DNR/DNI PCP:Saloni PT/OT, likely DC tomorrow. Patient would like to go home tomorrow. Patient is still feels tired today. Admission and Anticipated Discharge Date Admission Date: December 28, 2022 Subjective Patient seen and examined at bedside as a follow-up of diarrhea/proctitis and acute UTI. Patient was lying in bed, on room air, NAD, reports improving diarrhea, reports eating better, has chronic joint pain especially on the right knee, will use Voltaren gel, denies any new acute event overnight, reports feeling better overall. We will get PT/OT eval. Patient will like to to go home tomorrow be cause he still feels weak today. Physical Exam Physical Exam: GENERAL: Alert and oriented x3. NAD, on RA. HEENT: No pallor, no icterus. Pupils equal, round and reactive to light. Oral mucosa moist. NECK: No JVD, no neck masses. HEART: S1 and S2 heard. Regular rate and rhythm. No murmur, no gallop. RESPIRATORY SYSTEM: Normal AP diameter. No accessory muscle use. No wheezing, no crackles. ABDOMEN: Soft, bowel sounds present, nontender, no distention. +ve ileal conduit CENTRAL NERVOUS SYSTEM: No facial droop. Speech is clear. Obeys simple commands. Moves extremities. EXTREMITIES: No edema, no erythema seen. Results & Data Results & Data Vital Signs (Past 12 Hours) Vital Signs Temp Pulse Pulse Resp BP BP Pulse Ox 12/29/22 11:16 36.8 C 66 18 120/64 96 12/29/22 09:04 12/29/22 08:48 72 12/29/22 07:02 36.9 C 69 18 124/73 95 12/29/22 02:40 36.6 C 76 18 128/74 95 O2 Del Method 12/29/22 11:16 Room Air 12/29/22 09:04 Room Air 12/29/22 08:48 12/29/22 07:02 Room Air 12/29/22 02:40 Room Air
[2022-12-29] MEDS: ATORVASTATIN 20 MG TAB PO SCH (21:44)
[2022-12-30] MEDS: PIPERACILLIN/TAZOBACTAM 4.5 GM in DEXTROSE 5% 100 ML IV SCH ×3 (01:59→17:47)
[2022-12-30] MEDS: PANTOprazole 40 MG TAB PO SCH (06:12)
[2022-12-30 08:05] LABS: Hematocrit (blood only) 31.9 % (42.0-52.0); Hemoglobin 10.9 g/dl (14.0-18.0); Mean Corpuscular Hgb Conc 34.2 g/dL (32.0-36.0); Mean Corpuscular Volume 93.5 fL (80.0-100.0); Mean Platelet Volume 9.4 fL (9.4-12.4); Platelet Count 283 K/uL (130-400); RDW Coefficient of Variation 13.6 % (11.5-14.5); RDW Standard Deviation 46.3 fL (36.4-46.3); Red Blood Count 3.41 M/uL (4.70-6.10); White Blood Count 9.38 K/ul (4.8-10.8)
[2022-12-30 08:32] LABS: BUN Creatinine Ratio 10.3 (10-20); Calcium 8.5 mg/dl (8.6-10.3); Creatinine Clr Calc Pharmacy 54.3 ml/min; Est GFR (African American) 67.4 ml/min; Est GFR (Non-African American) 58.1 ml/min; Magnesium 1.7 mg/dl (1.7-2.4); Phosphorus 2.9 mg/dl (2.5-4.9); Potassium 3.7 mmol/L (3.5-5.1)
--- NOTE | 2022-12-30 08:53 | Gastroenterology Progress Note ---
Date of Service December 30, 2022 Assessment & Plan (1) Diarrhea: Plan: Seems to be slowly getting better. Nothing to add at this time from GI perspective but if things don't settle down may need colonoscopy just not now. Still okay to go home when he is ready Admission and Anticipated Discharge Date Admission Date: December 28, 2022 Subjective Enjoying breakfast. Says still goes to the bathroom 4-5 times per day--gas, water and some solid stool. Says he needs knee injected before he goes home because he will likely fall and hit head Physical Exam Physical Exam: He looks well Constitutional: WD/WN, vitals as above Results & Data Vital Signs (Past 12 Hours) Vital Signs Temp Pulse Pulse Resp BP BP Pulse Ox 12/30/22 07:46 36.6 C 71 18 147/82 H 95 12/30/22 07:33 60 12/29/22 22:53 67 12/30/22 02:38 36.6 C 72 18 126/74 95 12/29/22 21:30 12/29/22 23:26 36.7 C 72 18 145/76 H 96 O2 Del Method 12/30/22 07:46 Room Air 12/30/22 07:33 12/29/22 22:53 12/30/22 02:38 Room Air 12/29/22 21:30 Room Air 12/29/22 23:26 Room Air
[2022-12-30] MEDS: ATENOLOL 50 MG TABLET PO SCH (09:40)
[2022-12-30] MEDS: ADVANCED PROBIOTIC 1250 MG CAPSULE PO SCH (09:42)
[2022-12-30] MEDS: CHOLECALCIFEROL 400 UNITS 10 MCG TAB PO SCH (09:42)
[2022-12-30] MEDS: FERROUS SULFATE 325 MG TAB PO SCH (09:42)
[2022-12-30] MEDS: amLODIPine BESYLATE 5 MG TAB PO SCH (09:42)
[2022-12-30] MEDS: ENOXAPARIN INJ 40 MG/0.4 ML SYR SQ SCH (09:43)
[2022-12-30] MEDS: BACLOFEN 10 MG TAB PO SCH ×2 (09:43→20:03)
--- NOTE | 2022-12-30 14:30 | Hospitalist Progress Note ---
Date of Service December 30, 2022 Assessment & Plan (1) Diarrhea: (2) Acute UTI (urinary tract infection): (3) Acute proctitis: Plan 82-year-old male who has a significant past medical history of HTN, HLD, CKD stage III, history of bladder cancer status postresection with presence of urostomy, alcohol abuse, tobacco abuse, macular degeneration and anxiety who presents to ED secondary to diarrhea x 3 days. He is being managed for the following: Acute Proctitis Diarrhea recent antibiotic use, stool pcr/c diff negative. Likely 2/2 grange fair food he ate recently. Appetite better, stool semiformed per RN. Continue supportive Mx Patient was started on Zosyn 12/28 for proctitis, will complete 7 days antibiotic therapy. Utilize Imodium as needed. Electrolytes solution for diarrhea. Monitor and replete electrolytes. GI evaluated, appreciate recommendation Orthostatic vitals negative. Acute UTI, complicated recent UTI at end of November, pansensitive E. Coli wbc 15k at presentation, UCx w/ Klebsiella and Enterobacter. C/w with pip/tazo for GI coverage as well, continue with probiotic CKD-3/dehydration: Secondary to acute diarrhea renal function stable, chronic cr slightly up at 1.47 at presentation, baseline 1.2. Does not qualify for JAROCHO diagnosis Status post IV fluid. Resolved Hx of Bladder ca s/p ileal conduit HTN bp stable, chronic continue atenolol and amlodipine HLD chronic, stable continue statin Hx of ETOH abuse no alcohol in 6 weeks encourage to continue to abstain Tobacco abuse encourage cessation Chronic back pain recently placed on baclofen as OP, monitor DVT ppx: SQ Lovenox Dispo: med tele, consult PT/OT DNR/DNI PCP:Saloni PT/OT, pt doesn't feel safe to go home. CM consult. to med/surg for now. Admission and Anticipated Discharge Date Admission Date: December 28, 2022 Subjective Patient seen and examined at bedside as a follow-up of diarrhea/proctitis and acute UTI. Patient was lying in bed, on room air, NAD, reports multiple bowel movements/diarrhea - per RN stool semiformed, reports eating better, has chronic joint pain especially on the right knee, will use Voltaren gel, denies any new acute event overnight. States he doesn't feel safe to return as he lives alone and not sure if he is able to take care of him. We will get PT/OT eval. CM to assist. Physical Exam Physical Exam: GENERAL: Alert and oriented x3. NAD, on RA. HEENT: No pallor, no icterus. Pupils equal, round and reactive to light. Oral mucosa moist. NECK: No JVD, no neck masses. HEART: S1 and S2 heard. Regular rate and rhythm. No murmur, no gallop. RESPIRATORY SYSTEM: Normal AP diameter. No accessory muscle use. No wheezing, no crackles. ABDOMEN: Soft, bowel sounds present, nontender, no distention. +ve ileal conduit CENTRAL NERVOUS SYSTEM: No facial droop. Speech is clear. Obeys simple commands. Moves extremities. EXTREMITIES: No edema, no erythema seen. Results & Data Results & Data Vital Signs (Past 12 Hours) Vital Signs Temp Pulse Pulse Resp BP BP Pulse Ox 12/30/22 12:08 36.7 C 60 18 120/68 93 12/30/22 07:46 36.6 C 71 18 147/82 H 95 12/30/22 07:33 60 12/30/22 02:38 36.6 C 72 18 126/74 95 O2 Del Method 12/30/22 12:08 Room Air 12/30/22 07:46 Room Air 12/30/22 07:33 12/30/22 02:38 Room Air
[2022-12-30] MEDS: ATORVASTATIN 20 MG TAB PO SCH (20:03)
[2022-12-31] MEDS: PIPERACILLIN/TAZOBACTAM 4.5 GM in DEXTROSE 5% 100 ML IV SCH ×3 (01:44→18:44)
[2022-12-31] MEDS: PANTOprazole 40 MG TAB PO SCH (05:48)
[2022-12-31 07:13] LABS: Hematocrit (blood only) 31.3 % (42.0-52.0); Hemoglobin 10.8 g/dl (14.0-18.0); Mean Corpuscular Hemoglobin 32.3 pg (25.0-34.0); Mean Corpuscular Hgb Conc 34.5 g/dL (32.0-36.0); Mean Corpuscular Volume 93.7 fL (80.0-100.0); Mean Platelet Volume 9.5 fL (9.4-12.4); Platelet Count 286 K/uL (130-400); RDW Coefficient of Variation 13.7 % (11.5-14.5); RDW Standard Deviation 46.9 fL (36.4-46.3); Red Blood Count 3.34 M/uL (4.70-6.10); White Blood Count 8.96 K/ul (4.8-10.8)
[2022-12-31 07:37] LABS: BUN Creatinine Ratio 7.7 (10-20); Calcium 8.4 mg/dl (8.6-10.3); Creatinine Clr Calc Pharmacy 53.6 ml/min; Est GFR (African American) 67.4 ml/min; Est GFR (Non-African American) 58.1 ml/min; Magnesium 1.3 mg/dl (1.7-2.4); Phosphorus 2.8 mg/dl (2.5-4.9); Potassium 3.5 mmol/L (3.5-5.1)
[2022-12-31] MEDS: BACLOFEN 10 MG TAB PO SCH ×2 (08:07→20:52)
[2022-12-31] MEDS: ATENOLOL 50 MG TABLET PO SCH (08:07)
[2022-12-31] MEDS: FERROUS SULFATE 325 MG TAB PO SCH (08:07)
[2022-12-31] MEDS: amLODIPine BESYLATE 5 MG TAB PO SCH (08:07)
[2022-12-31] MEDS: ENOXAPARIN INJ 40 MG/0.4 ML SYR SQ SCH (08:08)
[2022-12-31] MEDS: CHOLECALCIFEROL 400 UNITS 10 MCG TAB PO SCH (08:08)
[2022-12-31] MEDS: ADVANCED PROBIOTIC 1250 MG CAPSULE PO SCH (08:08)
--- NOTE | 2022-12-31 09:07 | Gastroenterology Progress Note ---
Supervising physician's note Case discussed with Ambika Masters NP, patient seen and examined. See Ambika's notes for full details He is still having more than ten bowel movements per day. The urgency could be from proctitis if he actually has that. I think it is time we do colonoscopy. He agrees. Since he has eaten two full meals today will plan to do colonoscopy on Saturday with starting clear liquids today. He agrees I spent a total of 15 minutes with non contact and contact with patient today Kim Chew Jr, MD, FAC Date of Service December 31, 2022 Assessment & Plan (1) Diarrhea: Plan: Diarrhea: Patient reports he has had approximately 10 liquid stool output through the night. He denies any specific abdominal discomfort, melena, hematochezia, nausea or vomiting. Continues to slowly improve. Consider colonoscopy if not improving. Case reviewed with Dr. Chew. Please refer to supervising physician addendum for further recommendations. I have spent 10 minutes of discrete time performing the activities of this visit which include but are not limited to review of the medical record, obtaining a history, physical exam, and entering information in the electronic record. Admission and Anticipated Discharge Date Admission Date: December 28, 2022 Subjective Awake, alert, oriented to the abdominal discomfort this morning. He reports gassiness and liquid stools. States has been up to 10 times this morning. He does have good appetite and ate all of his breakfast. Denies melena or hematochezia. Denies nausea or vomiting. Urostomy output stable. Review of Systems Review of Systems: All systems reviewed & are unremarkable except as noted in Subjective Physical Exam Gastrointestinal (Abdomen): normal bowel sounds, soft, nontender, no hepa tosplenomegaly Urostomy right lower abdomen Results & Data Vital Signs (Past 12 Hours) Vital Signs Temp Pulse Pulse Resp BP Pulse Ox O2 Del Method 12/31/22 07:24 36.8 C 68 16 164/79 H 95 Room Air 12/30/22 23:42 36.8 C 70 18 138/78 95 Room Air Laboratory Results Laboratory Results - last 24 hr 12/31/22 12/31/22 06:41 06:41 WBC 8.96 RBC 3.34 L Hgb 10.8 L Hct 31.3 L MCV 93.7 MCH 32.3 MCHC 34.5 RDW Std Deviation 46.9 H RDW Coeff of Hemanth 13.7 Plt Count 286 MPV 9.5 Sodium 136 Potassium 3.5 Chloride 106 Carbon Dioxide 24 Anion Gap 6 BUN 9 Creatinine 1.17 Est Cr Clr Drug Dosing 53.6 Est GFR ( Amer) 67.4 Est GFR (Non-Af Amer) 58.1 BUN/Creatinine Ratio 7.7 L Glucose 99 Calcium 8.4 L Phosphorus 2.8 Magnesium 1.3 L
[2022-12-31] MEDS: MAGNESIUM SULFATE / D5W 1 GM/100 ML BAG IV SCH ×2 (10:33→12:22)
--- NOTE | 2022-12-31 15:44 | Hospitalist Progress Note ---
Date of Service December 31, 2022 Assessment & Plan (1) Diarrhea: (2) Acute UTI (urinary tract infection): (3) Acute proctitis: Plan 82-year-old male who has a significant past medical history of HTN, HLD, CKD stage III, history of bladder cancer status postresection with presence of urostomy, alcohol abuse, tobacco abuse, macular degeneration and anxiety who presents to ED secondary to diarrhea x 3 days. He is being managed for the following: Acute Proctitis Diarrhea recent antibiotic use, stool pcr/c diff negative. Likely 2/2 gr[place] fair food he ate recently. Appetite better, continues w/ several loos stools, GI planning for scope. Patient was started on Zosyn 12/28 for proctitis, will complete 7 days antibiotic therapy. Utilize Imodium as needed. Electrolytes solution for diarrhea. Monitor and replete electrolytes. GI evaluated, appreciate recommendation Orthostatic vitals negative. Acute UTI, complicated recent UTI at end of November, pansensitive E. Coli wbc 15k at presentation, UCx w/ Klebsiella and Enterobacter. C/w with pip/tazo for GI coverage as well, continue with probiotic CKD-3/dehydration: Secondary to acute diarrhea renal function stable, chronic cr slightly up at 1.47 at presentation, baseline 1.2. Does not qualify for JAROCHO diagnosis Status post IV fluid. Resolved Hx of Bladder ca s/p ileal conduit HTN bp stable, chronic continue atenolol and amlodipine HLD chronic, stable continue statin Hx of ETOH abuse no alcohol in 6 weeks encourage to continue to abstain Tobacco abuse encourage cessation Chronic back pain recently placed on baclofen as OP, monitor DVT ppx: SQ Lovenox Dispo: med tele, consult PT/OT DNR/DNI PCP:Saloni PT/OT, pt doesn't feel safe to go home. CM consult. to med/surg for now. for scope likely saturday. Admission and Anticipated Discharge Date Admission Date: December 28, 2022 Subjective Patient seen and examined at bedside as a follow-up of diarrhea/proctitis and acute UTI. Patient was lying in bed, on room air, NAD, reports multiple bowel movements/diarrhea - about 10 since midnight per pt, reports eating better, has chronic joint pain especially on the right knee, c/w Voltaren gel, denies any new acute event overnight. States he doesn't feel safe to return as he lives alone and not sure if he is able to take care of him. PT/OT eval. CM to assist. Physical Exam Physical Exam: GENERAL: Alert and oriented x3. NAD, on RA. HEENT: No pallor, no icterus. Pupils equal, round and reactive to light. Oral mucosa moist. NECK: No JVD, no neck masses. HEART: S1 and S2 heard. Regular rate and rhythm. No murmur, no gallop. RESPIRATORY SYSTEM: Normal AP diameter. No accessory muscle use. No wheezing, no crackles. ABDOMEN: Soft, bowel sounds present, nontender, no distention. +ve ileal conduit CENTRAL NERVOUS SYSTEM: No facial droop. Speech is clear. Obeys simple commands. Moves extremities. EXTREMITIES: No edema, no erythema seen. Results & Data Results & Data Vital Signs (Past 12 Hours) Vital Signs Temp Pulse Pulse Resp BP Pulse Ox O2 Del Method 12/31/22 14:43 36.9 C 70 16 121/64 93 Room Air 12/31/22 07:24 36.8 C 68 16 164/79 H 95 Room Air
[2022-12-31] MEDS: ATORVASTATIN 20 MG TAB PO SCH (20:52)
[2023-01-01] MEDS: PIPERACILLIN/TAZOBACTAM 4.5 GM in DEXTROSE 5% 100 ML IV SCH ×3 (02:01→17:47)
[2023-01-01] MEDS: PANTOprazole 40 MG TAB PO SCH (06:00)
[2023-01-01 08:03] LABS: Hematocrit (blood only) 33.7 % (42.0-52.0); Hemoglobin 11.7 g/dl (14.0-18.0); Mean Corpuscular Hemoglobin 31.7 pg (25.0-34.0); Mean Corpuscular Hgb Conc 34.7 g/dL (32.0-36.0); Mean Corpuscular Volume 91.3 fL (80.0-100.0); Mean Platelet Volume 9.3 fL (9.4-12.4); Platelet Count 330 K/uL (130-400); RDW Coefficient of Variation 13.8 % (11.5-14.5); RDW Standard Deviation 46.5 fL (36.4-46.3); Red Blood Count 3.69 M/uL (4.70-6.10); White Blood Count 11.31 K/ul (4.8-10.8)
[2023-01-01 08:17] LABS: BUN Creatinine Ratio 5.8 (10-20); Calcium 8.8 mg/dl (8.6-10.3); Creatinine Clr Calc Pharmacy 52.2 ml/min; Est GFR (African American) 65.3 ml/min; Est GFR (Non-African American) 56.4 ml/min; Magnesium 1.7 mg/dl (1.7-2.4); Phosphorus 2.8 mg/dl (2.5-4.9); Potassium 3.6 mmol/L (3.5-5.1)
[2023-01-01] MEDS: FERROUS SULFATE 325 MG TAB PO SCH (08:33)
[2023-01-01] MEDS: CHOLECALCIFEROL 400 UNITS 10 MCG TAB PO SCH (08:33)
[2023-01-01] MEDS: amLODIPine BESYLATE 5 MG TAB PO SCH (08:33)
[2023-01-01] MEDS: ATENOLOL 50 MG TABLET PO SCH (08:33)
[2023-01-01] MEDS: ADVANCED PROBIOTIC 1250 MG CAPSULE PO SCH (08:33)
[2023-01-01] MEDS: ENOXAPARIN INJ 40 MG/0.4 ML SYR SQ SCH (08:33)
[2023-01-01] MEDS: BACLOFEN 10 MG TAB PO SCH ×2 (08:38→20:02)
--- NOTE | 2023-01-01 08:58 | Gastroenterology Progress Note ---
Supervising physician's note Case discussed with Ambika Masters NP, chart reviewed patient seen. He is scheduled for colonoscopy. He wants it done to "kill this bug". He is also pleading to have someone address the cortisone shots in his knees. Feels if he goes home without it he will fall again--the last time he broke his ankle and hit his head. I spent a total of 15 minutes in discrete time today in face to face and non contact work Kim Chew Jr, MD, FAC Date of Service January 01, 2023 Assessment & Plan (1) Diarrhea: Plan: Diarrhea: Patient reports he has had approximately 12 soft/liquid/gassy stools since yesterday. He denies any specific abdominal discomfort, melena, hematochezia, nausea or vomiting. Plan is colonoscopy tomorrow. Case reviewed with Dr. Chew. Please refer to supervising physician addendum for further recommendations. I have spent 15 minutes of discrete time performing the activities of this visit which include but are not limited to review of the medical record, obtaining a history, physical exam, and entering information in the electronic record. Admission and Anticipated Discharge Date Admission Date: December 28, 2022 Subjective Patient awake alert and oriented this morning eating his breakfast. He states that he had approximately 12 soft/liquid/gassy stools yesterday. Denies any abdominal pain, nausea, vomiting, melena, hematochezia. Review of Systems Review of Systems: All systems reviewed & are unremarkable except as noted in Subjective Physical Exam Gastrointestinal (Abdomen): normal bowel sounds, soft, nontender, no hepatosplenomegaly Results & Data Vital Signs (Past 12 Hours) Vital Signs Temp Pulse Resp BP Pulse Ox O2 Del Method 01/01/23 07:51 36.6 C 63 16 168/87 H 95 Room Air Laboratory Results Laboratory Results - last 24 hr 01/01/23 01/01/23 07:31 07:31 WBC 11.31 H RBC 3.69 L Hgb 11.7 L Hct 33.7 L MCV 91.3 MCH 31.7 MCHC 34.7 RDW Std Deviation 46.5 H RDW Coeff of Hemanth 13.8 Plt Count 330 MPV 9.3 L Sodium 136 Potassium 3.6 Chloride 104 Carbon Dioxide 26 Anion Gap 6 BUN 7 Creatinine 1.20 Est Cr Clr Drug Dosing 52.2 Est GFR ( Amer) 65.3 Est GFR (Non-Af Amer) 56.4 BUN/Creatinine Ratio 5.8 L Glucose 98 Calcium 8.8 Phosphorus 2.8 Magnesium 1.7
--- NOTE | 2023-01-01 15:59 | Hospitalist Progress Note ---
Date of Service January 01, 2023 Assessment & Plan (1) Diarrhea: (2) Acute UTI (urinary tract infection): (3) Acute proctitis: Plan 82-year-old male who has a significant past medical history of HTN, HLD, CKD stage III, history of bladder cancer status postresection with presence of urostomy, alcohol abuse, tobacco abuse, macular degeneration and anxiety who presents to ED secondary to diarrhea x 3 days. He is being managed for the following: Acute Proctitis Diarrhea recent antibiotic use, stool pcr/c diff negative. Likely 2/2 grange fair food he ate recently. Appetite better, continues w/ several loos stools, GI planning for scope. Patient was started on Zosyn 12/28 for proctitis, will complete 7 days antibiotic therapy. Utilize Imodium as needed. Electrolytes solution for diarrhea. Monitor and replete electrolytes. GI evaluated, appreciate recommendation Orthostatic vitals negative. He will have colonoscopy tomorrow, he is NPO after midnight Acute UTI, complicated recent UTI at end of November, pansensitive E. Coli wbc 15k at presentation, UCx w/ Klebsiella and Enterobacter. C/w with pip/tazo for GI coverage as well, continue with probiotic CKD-3/dehydration: Secondary to acute diarrhea renal function stable, chronic cr slightly up at 1.47 at presentation, baseline 1.2. Does not qualify for JAROCHO diagnosis Status post IV fluid. Resolved Hx of Bladder ca s/p ileal conduit HTN bp stable, chronic continue atenolol and amlodipine HLD chronic, stable continue statin Hx of ETOH abuse no alcohol in 6 weeks encourage to continue to abstain Tobacco abuse encourage cessation Chronic back pain recently placed on baclofen as OP, monitor DVT ppx: SQ Lovenox Dispo: medical, PT/OT consulted, will need to do stairs prior to d/c, he doesn't feel safe to go home due to knee pain and needing steroid injection, will discuss post c scope tomorrow DNR/DNI PCP:Saloni Admission and Anticipated Discharge Date Admission Date: December 28, 2022 Supervising Physician Co-Signing Physician Notes Patient was seen and examined at bedside as a follow-up of diarrhea, acute UTI, acute proctitis. Patient on antibiotic. Diarrhea continues, plan for colonoscopy tomorrow. On examination, patient on Room air, NAD, heart/lung/abdomen examination fairly WNL. Abdomen with urostomy. I have seen and examined the patient and have discussed the case with the provider above. I agree with the assessment and plan as stated. Subjective Pt sitting up in bed. He is [place]. Offers no acute concerns. He still had diarrhea, but feels maybe its slowing a bit. He denies f/c/s, chest pain, sob, n/v/d, abd pain. Tolerating Clears. Review of Systems Review of Systems: All systems reviewed & are unremarkable except as noted in HPI & below Physical Exam Physical Exam: Gen: WD/WN, NAD, A&O x3 HEENT: Normocephalic, atraumatic, conjunctivae moist, sclerae anicteric, mucous membranes moist. Lung: Clear to Auscultation bilaterally, no wheezes/rales/rhonchi Heart: Regular rate, regular rhythm, no murmurs, rubs, or gallops Abdomen: Soft, NT, ND +BS x 4 +Urostomy Extremities: No edema Skin: Warm, no rash, negative turgor. Results & Data Results & Data Vital Signs (Past 12 Hours) Vital Signs Temp Pulse Resp BP Pulse Ox O2 Del Method 01/01/23 15:27 36.9 C 61 16 153/83 H 96 Room Air 01/01/23 07:51 36.6 C 63 16 168/87 H 95 Room Air Laboratory Results Short CBC 01/01/23 Range/Units 07:31 WBC 11.31 H (4.8-10.8) K/ul Hgb 11.7 L (14.0-18.0) g/dl Hct 33.7 L (42.0-52.0) % Plt Count 330 (130-400) K/uL BMP 01/01/23 07:31 Sodium 136 Potassium 3.6 Chloride 104 Carbon Dioxide 26 BUN 7 Creatinine 1.20 Glucose 98 Calcium 8.8 Medications Administered Current Inpatient Medications Acetaminophen (Acetaminophen 325 Mg Tab) 650 mg PO Q4H PRN PRN Reason: Pain or Fever Stop: 01/27/23 19:59 Al Hydrox/Mg Hydrox/Simethicone (Aluminum/Magnesium Susp 30 Ml Udc) 15 ml PO Q4H PRN PRN Reason: Dyspepsia Stop: 01/27/23 19:59 Amlodipine Besylate (Amlodipine Besylate 5 Mg Tab) 5 mg PO DAILY ALEKSANDRA Stop: 01/28/23 08:59 Last Admin: 01/01/23 08:33 Dose: 5 mg Atenolol (Atenolol 50 Mg Tablet) 100 mg PO DAILY ALEKSANDRA Stop: 01/28/23 08:59 Last Admin: 01/01/23 08:33 Dose: 100 mg Atorvastatin Calcium (Atorvastatin 20 Mg Tab) 20 mg PO PM ALEKSANDRA Stop: 01/27/23 20:59 Last Admin: 12/31/22 20:52 Dose: 20 mg Baclofen (Baclofen 10 Mg Tab) 10 mg PO BID ALESKANDRA Stop: 01/27/23 20:59 Last Admin: 01/01/23 08:38 Dose: 10 mg Clonazepam (Clonazepam 0.5 Mg Tab) 0.5 mg PO BID PRN PRN Reason: Anxiety Stop: 01/27/23 19:59 Diclofenac Sodium (Diclofenac Sod 1% Gel 100 Gm Tube) 2 gm EXT Q6H PRN; Protocol PRN Reason: pain Stop: 01/28/23 14:14 Last Admin: 12/30/22 09:55 Dose: 2 gm Enoxaparin Sodium (Enoxaparin Inj 40 Mg/0.4 Ml Syr) 40 mg SQ DAILY ALEKSANDRA Stop: 01/28/23 08:59 Last Admin: 01/01/23 08:33 Dose: 40 mg Ferrous Sulfate (Ferrous Sulfate 325 Mg Tab) 325 mg PO DAILY ALEKSANDRA Stop: 01/28/23 08:59 Last Admin: 01/01/23 08:33 Dose: 325 mg Piperacillin Sod/Tazobactam (Sod 4.5 gm/ Dextrose) 120 mls @ 30 mls/hr IV Q8H ALEKSANDRA; Protocol Stop: 01/08/23 01:59 Last Admin: 01/01/23 11:06 Dose: 30 mls/hr Lactobacillus Acidophilus (Advanced Probiotic 1250 Mg Capsule) 2 cap PO DAILY ALEKSANDRA Stop: 01/28/23 08:59 Last Admin: 01/01/23 08:33 Dose: 2 cap Loperamide HCl (Loperamide Hcl 2 Mg Cap) 2 mg PO Q4H PRN PRN Reason: diarrhea Stop: 01/27/23 19:57 Melatonin (Melatonin 3 Mg Tab) 3 mg PO HS PRN PRN Reason: Sleep Stop: 01/28/23 00:55 Last Admin: 12/29/22 01:42 Dose: 3 mg Ondansetron HCl (Ondansetron Inj 2 Mg/Ml 2 Ml Vial) 4 mg IV Q6H PRN PRN Reason: Nausea Stop: 01/27/23 19:59 Pantoprazole Sodium (Pantoprazole 40 Mg Tab) 40 mg PO DAILYBB [facility] Stop: 01/28/23 06:29 Last Admin: 01/01/23 06:00 Dose: 40 mg Polyethylene Glycol/Electrolytes (Lavage Solution 4000ml) 8 dose PO TODAY@18 [facility] Stop: 01/02/23 06:01 Vitamin D (Cholecalciferol 400 Units 10 Mcg Tab) 400 units PO DAILY ALEKSANDRA Stop: 01/28/23 08:59 Last Admin: 01/01/23 08:33 Dose: 400 units
[2023-01-01] MEDS: LAVAGE SOLUTION 4000ML PO SCH (18:15)
[2023-01-01] MEDS: ATORVASTATIN 20 MG TAB PO SCH (20:02)
[2023-01-02] MEDS: PIPERACILLIN/TAZOBACTAM 4.5 GM in DEXTROSE 5% 100 ML IV SCH ×2 (01:45→10:07)
[2023-01-02] MEDS: PANTOprazole 40 MG TAB PO SCH (05:09)
[2023-01-02] MEDS: LAVAGE SOLUTION 4000ML PO SCH (05:09)
--- NOTE | 2023-01-02 09:01 | Gastroenterology Progress Note ---
Supervising physician's note Case discussed with Ambika Masters NP. Patient seen and colonoscopy performed Colonoscopy-random biopsies done for diarrhea. In rectum, on retroflexed view, ulcerated, edematous erythematous area found. Biopsies taken and lesion is rock hard. Although this doesn't look like a cancer, the fact that it is so hard is a little concerning. Wait on pathology for answer. Kim Chew Jr, MD, FACG Date of Service January 02, 2023 Assessment & Plan (1) Diarrhea: Plan: Diarrhea: Plan is to obtain colonoscopy today due to continuation of diarrhea stools. Patient with clear liquid output following colonoscopy prep. He denies any specific abdominal discomfort, melena, hematochezia, nausea or vomiting. Procedure and risks explained to patient which include but not limited to medication reaction, bleeding, perforation, aspiration, and missed lesions. Verbalizes understanding and is agreeable to proceed. Case reviewed with Dr. Chew. Please refer to supervising physician addendum for further recommendations. I have spent 10 minutes of discrete time performing the activities of this visit which include but are not limited to review of the medical record, obtaining a history, physical exam, and entering information in the electronic record. Admission and Anticipated Discharge Date Admission Date: December 28, 2022 Subjective Patient alert and oriented this morning. Sleeping but wakes easily with verbal stimuli. Reports stool output is now clear following colonoscopy prep. Reports he is a little nervous about upcoming colonoscopy. All questions were answered. No abdominal pain, nausea, vomiting this morning. Review of Systems Review of Systems: All systems reviewed & are unremarkable except as noted in Subjective Physical Exam Gastrointestinal (Abdomen): normal bowel sounds, soft, nontender, no hepatosplenomegaly urostomy Right lower abdomen Results & Data Vital Signs (Past 12 Hours) Vital Signs Temp Pulse Resp BP Pulse Ox O2 Del Method 01/02/23 07:26 36.8 C 70 16 162/87 H 96 Room Air
[2023-01-02] MEDS: ENOXAPARIN INJ 40 MG/0.4 ML SYR SQ SCH (09:10)
[2023-01-02] MEDS: FERROUS SULFATE 325 MG TAB PO SCH (09:11)
[2023-01-02] MEDS: CHOLECALCIFEROL 400 UNITS 10 MCG TAB PO SCH (09:16)
[2023-01-02] MEDS: ATENOLOL 50 MG TABLET PO SCH (09:16)
[2023-01-02] MEDS: amLODIPine BESYLATE 5 MG TAB PO SCH (09:17)
[2023-01-02] MEDS: ADVANCED PROBIOTIC 1250 MG CAPSULE PO SCH (09:18)
[2023-01-02 09:40] LABS: Hematocrit (blood only) 32.4 % (42.0-52.0); Hemoglobin 11.1 g/dl (14.0-18.0); Mean Corpuscular Hgb Conc 34.3 g/dL (32.0-36.0); Mean Corpuscular Volume 93.4 fL (80.0-100.0); Mean Platelet Volume 9.4 fL (9.4-12.4); Platelet Count 319 K/uL (130-400); RDW Coefficient of Variation 13.8 % (11.5-14.5); RDW Standard Deviation 46.5 fL (36.4-46.3); Red Blood Count 3.47 M/uL (4.70-6.10); White Blood Count 10.87 K/ul (4.8-10.8)
[2023-01-02 10:02] LABS: BUN Creatinine Ratio 5.4 (10-20); Calcium 8.6 mg/dl (8.6-10.3); Creatinine Clr Calc Pharmacy 56.8 ml/min; Est GFR (Non-African American) 61.3 ml/min; Magnesium 1.3 mg/dl (1.7-2.4); Phosphorus 2.7 mg/dl (2.5-4.9); Potassium 3.6 mmol/L (3.5-5.1)
[2023-01-02] MEDS: BACLOFEN 10 MG TAB PO SCH ×2 (10:05→19:54)
[2023-01-02] MEDS ORDERED: LIDOCAINE 2% 2 ML VIAL/AMP(20MG/ML) INFIL ONE (13:41)
[2023-01-02] MEDS ORDERED: PROPOFOL IV EMULSION 10 MG/ML 20 ML VIAL IV ONE (13:41)
--- NOTE | 2023-01-02 13:53 | History & Physical Report ---
Date of Service January 02, 2023 Assessment & Plan (1) Encounter for pre-operative examination: Plan: Pleasant man who is here for colonoscopy because of diarrhea. Procedure and risks discussed. He agrees Admission and Anticipated Discharge Date Admission Date: December 28, 2022 History of Present Illness Chief Complaint: diarrhea Primary Care Provider: Demarco Guallpa MD 82 year old man with persistent diarrhea. He is here for colonoscopy Allergies Allergy/AdvReac Type Severity Reaction Status Date / Time meclizine Allergy Severe THROAT/TONGUE Verified 12/28/22 14:56 SWELLS aspirin AdvReac Unknown History of Verified 12/28/22 14:56 ulcers Home Medications Medication Instructions Recorded Confirmed Type acetaminophen 500 mg tablet 500 - 1,000 mg PO DIRECTED PRN 11/28/18 12/28/22 History (Tylenol Extra Strength) Pain atenolol 50 mg tablet 100 mg PO DAILY 11/28/18 12/28/22 History atorvastatin 20 mg tablet 20 mg PO PM 11/28/18 12/28/22 History cholecalciferol (vitamin D3) 10 400 unit PO DAILY 11/28/18 12/28/22 History mcg/mL (400 unit/mL) oral drops (D-Vi-Tish) clonazepam 1 mg tablet 0.5 mg PO BID PRN Anxiety 11/28/18 12/28/22 History clonazepam 1 mg tablet 1 mg PO HS PRN RESTLESSNESS 11/28/18 12/28/22 History ferrous sulfate 325 mg (65 mg 325 mg PO DAILY 11/28/18 12/28/22 History iron) tablet lorazepam 1 mg tablet 1 mg PO DIRECTED PRN BEFORE 11/28/18 12/28/22 History TRAVELING dunpnrxs-lkvsdqad-ycaaa acid 400 1 tab PO DAILY 11/28/18 12/28/22 History mcg-vit K 20 mcg-lycop 300 mcg tablet (Men's One Daily) omeprazole 20 mg capsule,delayed 20 mg PO DAILYBB 11/28/18 12/28/22 History release amlodipine 5 mg tablet 5 mg PO DAILY 05/16/22 12/28/22 History trazodone 50 mg tablet 50 mg PO HS 05/16/22 12/28/22 History magnesium oxide 400 mg (241.3 mg 400 mg PO BID #30 tabs 12/05/22 12/28/22 Rx magnesium) tablet baclofen 10 mg tablet 10 mg PO BID 12/28/22 12/28/22 History nystatin 100,000 unit/gram topical 1 applic topical BID 12/28/22 12/28/22 History cream Past Med/Surg History Medical History Anxiety CKD (chronic kidney disease), stage III Dyslipidemia History of carcinoma of bladder History of colon polyps Hypertension Macular degeneration Tinnitus Tobacco use Surgical History H/O total cystectomy with ileal conduit Status post lumbar surgery Family History Other Cancer Coronary heart disease Social History Smoking Status: Current every day smoker Tobacco Type: Cigarettes Cigarettes Per Day: 1-2 per day up to 12 per day, intermittently; Second Hand Exposure: No; Do You Dip or Chew Tobacco: No; Hx Alcohol Use: Yes Alcohol type: beer Alcohol Intake Frequency: 2-3 x/Week Hx Substance Use: No Preferred Language: [place] Communication Ability: Effective Communication Ability Comment: Macular degeneration, legally blind Ambulance Driver Paramedic Required: No Beliefs That Will Affect Care: None marital status: / Current Living Situation: Alone Feels Safe at Home: Yes Safety Concerns: Feels Safe At This Time Assistive Devices: Cane and Walker Review of Systems All systems reviewed & are unremarkable except as noted in HPI & below Physical Exam Constitutional: WD/WN, vitals as above Neck: trachea midline, no thyromegaly Respiratory: normal respiratory effort, lungs clear to auscultation Cardiovascular: RRR, no murmur, no edema Gastrointestinal (Abdomen): normal bowel sounds, soft, nontender, no hepatosplenomegaly ASA Classification ASA ASA2 Results & Data Vital Signs (Past 12 Hours) Vital Signs Temp Pulse Resp BP Pulse Ox O2 Del Method 01/02/23 09:15 62 145/76 H 01/02/23 07:26 36.8 C 70 16 162/87 H 96 Room Air Code Status & VTE Plan VTE Prophylaxis Plan VTE Prophylaxis will be ordered: Yes
--- NOTE | 2023-01-02 14:16 | Anesthesiology Consultation ---
Date of Service January 02, 2023 Assessment & Plan Chart Review Chart Review: Acceptable Risk for Surgery and Patient NOT seen in Pre Admission Testing Consults Requested none ASA ASA3 Proposed Anesthesia Anesthesia Type: MAC Risk / Benefits Reviewed With: PT / POA / Parent / Guardian, Accepts Plan and Informed Consent Obtained History Surgery Operation Date: 01/02/23 14:30 Proposed Procedures p Colonoscopy Dr. Naina Chew Jr, MD Height/Weight Height: 6 ft Weight: 78.5 kg Allergies Allergy/AdvReac Type Severity Reaction Status Date / Time meclizine Allergy Severe THROAT/TONGUE Verified 12/28/22 14:56 SWELLS aspirin AdvReac Unknown History of Verified 12/28/22 14:56 ulcers Medications Home Medications Medication Instructions Recorded Confirmed Last Taken acetaminophen 500 mg tablet 500 - 1,000 mg PO DIRECTED PRN 11/28/18 12/28/22 Unknown (Tylenol Extra Strength) Pain atenolol 50 mg tablet 100 mg PO DAILY 11/28/18 12/28/22 11/27/18 atorvastatin 20 mg tablet 20 mg PO PM 11/28/18 12/28/22 11/27/18 cholecalciferol (vitamin D3) 10 400 unit PO DAILY 11/28/18 12/28/22 11/27/18 mcg/mL (400 unit/mL) oral drops (D-Vi-Tish) clonazepam 1 mg tablet 0.5 mg PO BID PRN Anxiety 11/28/18 12/28/22 Unknown clonazepam 1 mg tablet 1 mg PO HS PRN RESTLESSNESS 11/28/18 12/28/22 Unknown ferrous sulfate 325 mg (65 mg 325 mg PO DAILY 11/28/18 12/28/22 11/27/18 iron) tablet lorazepam 1 mg tablet 1 mg PO DIRECTED PRN BEFORE 11/28/18 12/28/22 Unknown TRAVELING etaevaln-bcwjrwyp-gqxwk acid 400 1 tab PO DAILY 11/28/18 12/28/22 11/27/18 mcg-vit K 20 mcg-lycop 300 mcg tablet (Men's One Daily) omeprazole 20 mg capsule,delayed 20 mg PO DAILYBB 11/28/18 12/28/22 11/27/18 release amlodipine 5 mg tablet 5 mg PO DAILY 05/16/22 12/28/22 Unknown trazodone 50 mg tablet 50 mg PO HS 05/16/22 12/28/22 Unknown magnesium oxide 400 mg (241.3 mg 400 mg PO BID #30 tabs 12/05/22 12/28/22 Unknown magnesium) tablet baclofen 10 mg tablet 10 mg PO BID 12/28/22 12/28/22 Unknown nystatin 100,000 unit/gram topical 1 applic topical BID 12/28/22 12/28/22 Unknown cream Active Medications Generic Name Dose Route Start Last Admin Trade Name Freq PRN Reason Stop Dose Admin Amlodipine Besylate 5 mg 12/29/22 09:00 01/02/23 09:17 Amlodipine Besylate 5 Mg Tab PO 01/28/23 08:59 5 mg DAILY ALEKSANDRA Administration Atenolol 100 mg 12/29/22 09:00 01/02/23 09:16 Atenolol 50 Mg Tablet PO 01/28/23 08:59 100 mg DAILY ALEKSANDRA Administration Atorvastatin Calcium 20 mg 12/28/22 21:00 01/01/23 20:02 Atorvastatin 20 Mg Tab PO 01/27/23 20:59 20 mg PM ALEKSANDRA Administration Baclofen 10 mg 12/28/22 21:00 01/02/23 10:05 Baclofen 10 Mg Tab PO 01/27/23 20:59 10 mg BID ALEKSANDRA Administration Clonazepam 0.5 mg 12/28/22 20:00 01/01/23 17:46 Clonazepam 0.5 Mg Tab PO 01/27/23 19:59 0.5 mg BID PRN Administration Anxiety Diclofenac Sodium 2 gm 12/29/22 14:01 12/30/22 09:55 Diclofenac Sod 1% Gel 100 Gm Tube EXT 01/28/23 14:14 2 gm Q6H PRN Administration pain Protocol Enoxaparin Sodium 40 mg 12/29/22 09:00 01/02/23 09:10 Enoxaparin Inj 40 Mg/0.4 Ml Syr SQ 01/28/23 08:59 Not Given DAILY ALEKSANDRA Ferrous Sulfate 325 mg 12/29/22 09:00 01/02/23 09:11 Ferrous Sulfate 325 Mg Tab PO 01/28/23 08:59 Not Given DAILY ALEKSANDRA Lactobacillus Acidophilus 2 cap 12/29/22 09:00 01/02/23 09:18 Advanced Probiotic 1250 Mg Capsule PO 01/28/23 08:59 2 cap DAILY ALEKSANDRA Administration Melatonin 3 mg 12/29/22 00:56 12/29/22 01:42 Melatonin 3 Mg Tab PO 01/28/23 00:55 3 mg HS PRN Administration Sleep Pantoprazole Sodium 40 mg 12/29/22 06:30 01/02/23 05:09 Pantoprazole 40 Mg Tab PO 01/28/23 06:29 40 mg DAILYBB ALEKSANDRA Administration Vitamin D 400 units 12/29/22 09:00 01/02/23 09:16 Cholecalciferol 400 Units 10 Mcg Tab PO 01/28/23 08:59 Not Given DAILY ALEKSANDRA NPO Date Last Intake of Fluids: 01/02/23 Time Last Intake of Fluids: 07:00 Date Last Intake of Solids: 12/31/22 Past Medical History Medical History Anxiety CKD (chronic kidney disease), stage III Dyslipidemia History of carcinoma of bladder History of colon polyps Hypertension Macular degeneration Tinnitus Tobacco use Exercise / Class Metabolic Activity II 4-5 Yardwork/Stairs/Walk up hill Past Family History Family History Other Cancer Coronary heart disease Past Surgical History Surgical History H/O total cystectomy with ileal conduit Status post lumbar surgery Past Anesthesia History No Hx of Anesthesia Complications and No Family Hx of Anesthesia Complications History of PONV No Hx of PONV and No Hx of Motion Sickness Social History Smoking Status: Current every day smoker tobacco type: cigarettes Smoking cigarettes per day: 1-2 per day up to 12 per day, intermittently Do You Dip or Chew Tobacco: No Hx Alcohol Use: Yes Alcohol type: beer alcohol intake frequency: holidays/special occasions only Hx Substance Use: No Physical Exam Vital Signs Last Vital Signs Temp 36.4 C L 01/02/23 13:54 Pulse 51 L 01/02/23 13:54 Resp 16 01/02/23 13:54 BP 164/85 H 01/02/23 13:54 Pulse Ox 95 01/02/23 13:54 O2 Del Method Room Air 01/02/23 13:54 ENMT Mouth: no dentition abnormality Thyromental Distance: > or= 3.5 Finger Breadths Mallampati Class: II Neck normal visual inspection Respiratory normal respiratory effort Auscultation: lungs clear to auscultation bilaterally Cardiovascular Rate/Rhythm: regular rate and regular rhythm Psychiatric Orientation: alert Testing Laboratory Results 01/02/23 08:52 01/02/23 08:52 Urine Color Yellow 12/28/22 15:06 Urine Appearance Clear (Clear) 12/28/22 15:06 Urine pH 6.5 (4.5-7.5) 12/28/22 15:06 Ur Specific [place] 1.008 (1.000-1.030) 12/28/22 15:06 Urine Protein Negative (Negative) 12/28/22 15:06 Urine Glucose (UA) Negative (Negative) 12/28/22 15:06 Urine Ketones Negative (Negative) 12/28/22 15:06 Urine Nitrite Positive (Negative) A 12/28/22 15:06 Ur Leukocyte Esterase 1+ (Negative) H 12/28/22 15:06 Urine WBC (Auto) 5-10 /hpf (0-5) H 12/28/22 15:06 Urine RBC (Auto) 10-30 /hpf (0-4) H 12/28/22 15:06 U Hyaline Cast (Auto) 1-5 /lpf (0-5) 12/28/22 15:06 U Epithel Cells (Auto) 10-20 /lpf (0-5) H 12/28/22 15:06 Urine Bacteria (Auto) 4+ (Negative) H 12/28/22 15:06 12/28/22 15:06 Urine Culture - Final Urine,Clean Catch Enterobacter cloacae Klebsiella oxytoca
--- NOTE | 2023-01-02 14:45 | GI REPORT ---
Patient Name: Nadeem Goel Procedure Date: 01/02/2023 1:56 PM Date of : 1940 Admit Type: Inpatient Age: 82 Gender: Male Attending MD: Kim Chew MD, Procedure: Colonoscopy Providers: Kim Chew MD Referring MD: Referred Self Indications: Chronic diarrhea Medicines: Propofol per Anesthesia Complications: No immediate complications. Estimated Blood Loss: Estimated blood loss: none. Procedure: Pre-Anesthesia Assessment: - Prior to the procedure, a History and Physical was performed, and patient medications and allergies were reviewed. The patient's tolerance of previous anesthesia was also reviewed. The risks and benefits of the procedure and the sedation options and risks were discussed with the patient. All questions were answered, and informed consent was obtained. Prior Anticoagulants: The patient has taken no anticoagulant or antiplatelet agents. ASA Grade Assessment: III - A patient with severe systemic disease. After reviewing the risks and benefits, the patient was deemed in satisfactory condition to undergo the procedure. After I obtained informed consent, the scope was passed under direct vision. Throughout the procedure, the patient's blood pressure, pulse, and oxygen saturations were monitored continuously. The Colonoscope was introduced through the anus and advanced to the cecum, identified by appendiceal orifice and ileocecal valve. The colonoscopy was performed without difficulty. The patient tolerated the procedure well. The quality of the bowel preparation was evaluated using the BBPS ([place] Bowel Preparation Scale) with scores of: Right Colon = 3, Transverse Colon = 3 and Left Colon = 3 (entire mucosa seen well with no residual staining, small fragments of stool or opaque liquid). The total BBPS score equals 9. The ileocecal valve, appendiceal orifice, and rectum were photographed. Findings: The recto-sigmoid colon, sigmoid colon, descending colon, splenic flexure, transverse colon, hepatic flexure, ascending colon and cecum appeared normal. Biopsies for histology were taken with a cold forceps from the right colon, left colon and transverse colon for evaluation of microscopic colitis. A localized area of moderately erythematous, friable (with contact bleeding) and ulcerated mucosa was found in the rectum. Biopsies were taken with a cold forceps for histology. A 5 mm polyp was found in the ascending colon. The polyp was sessile. The polyp was removed with a jumbo cold forceps. Resection and retrieval were complete. Impression: - The sigmoid colon, descending colon, splenic flexure, transverse colon, hepatic flexure, ascending colon, cecum and recto-sigmoid colon are normal. Biopsied. - Erythematous, friable (with contact bleeding) and ulcerated mucosa in the rectum. Biopsied. - One 5 mm polyp in the ascending colon, removed with a jumbo cold forceps. Resected and retrieved. Recommendation: - Patient has a contact number available for emergencies. The signs and symptoms of potential delayed complications were discussed with the patient. Return to normal activities tomorrow. Written discharge instructions were provided to the patient. - Resume previous diet. - Continue present medications. - Await pathology results. - No repeat colonoscopy due to age. Kim Chew MD 01/02/2023 2:44:31 PM Note Initiated On: 01/02/2023 1:56 PM Number of Addenda: 0 I attest to the content of the Intraoperative Record and orders documented therein, exceptions below {[id number]}
--- NOTE | 2023-01-02 15:01 | Hospitalist Progress Note ---
Date of Service January 02, 2023 Assessment & Plan (1) Diarrhea: (2) Acute UTI (urinary tract infection): (3) Acute proctitis: Plan This is a 82-year-old male who has a significant past medical history of HTN, HLD, CKD stage III, history of bladder cancer status postresection with presence of urostomy, alcohol abuse, tobacco abuse, macular degeneration and anxiety who presents to ED secondary to diarrhea x 3 days. Acute Proctitis Diarrhea recent antibiotic use, stool pcr/c diff negative. Likely 2/2 [place] fair food he ate recently. Appetite better, continues w/ several loos stools, GI planning for scope. Patient was started on Zosyn 12/28 for proctitis, will complete 7 days antibiotic therapy. Utilize Imodium as needed. Electrolytes solution for diarrhea. Zosyn changed to cefepime and flagyl Monitor and replete electrolytes. GI evaluated, appreciate recommendation Orthostatic vitals negative. C scope: ulcerated mucosa noted in rectum, otherwise norm, tissue bx to eval for microscopic colitis, one 5mm polyp noted and removed, ok to resume diet. Acute UTI, complicated recent UTI at end of November, pansensitive E. Coli wbc 15k at presentation, UCx w/ Klebsiella and Enterobacter. C/w with cefepime and flagyl Hypomagnesemia replace mag with 3g mag sulfate repeat mag in a.m. CKD-3/dehydration:Secondary to acute diarrhea renal function stable, chronic cr slightly up at 1.47 at presentation, baseline 1.2. Does not qualify for JAROCHO diagnosis Status post IV fluid. Resolved Osteoarthritis pcp previously did CSI to R Knee PCP now referring to ortho for inj and pt does not have ability to get to appt due to transportation issues will trial voltaren gel bid given active infection unable to entertain idea inpt will need to discuss with our CM to determine if any services available for pt to get transport as op Hx of Bladder ca s/p ileal conduit HTN bp stable, chronic continue atenolol and amlodipine HLD chronic, stable continue statin Hx of ETOH abuse no alcohol in 6 weeks encourage to continue to abstain Tobacco abuse encourage cessation Chronic back pain recently placed on baclofen as OP, monitor DVT ppx: SQ Lovenox Dispo: medical, PT/OT consulted, will need to do stairs prior to d/c, pt does not have transportation access and needs to obtain appt with orthopedics/transportation for eval for corticosteroid inj, will need to address with CM tomorrow if any services available to patient. DNR/DNI PCP:Saloni Admission and Anticipated Discharge Date Admission Date: December 28, 2022 Supervising Physician Co-Signing Physician Notes Patient seen and examined Antibiotics changed to cefepime and flagyl for better coverage of both proctitis and UTI considering UCx growing enterobacter and klebsiella Will follow up Colonoscopy today Subjective Pt sitting up in bed. He is NIKOLSKI. He is upset he has to wait so long for his cscope. He also c/o b/l knee pain R>L and wishes for steroid injections. States he doesn't have transportation when he gets home. He completed bowel prep w/o difficulty. Denies pain, f/c/s, chest pain, sob, n/v, abd pain. Review of Systems Review of Systems: All systems reviewed & are unremarkable except as noted in HPI & below Physical Exam Physical Exam: Gen: WD/WN, NAD, A&O x3 HEENT: Normocephalic, atraumatic, conjunctivae moist, sclerae anicteric, mucous membranes moist. Lung: Clear to Auscultation bilaterally, no wheezes/rales/rhonchi Heart: Regular rate, regular rhythm, no murmurs, rubs, or gallops Abdomen: Soft, NT, ND +BS x 4 +Urostomy Extremities: No edema Skin: Warm, no rash, negative turgor. Results & Data Results & Data Vital Signs (Past 12 Hours) Vital Signs Temp Pulse Resp BP Pulse Ox O2 Del Method 01/02/23 14:55 57 L 18 109/56 L 96 Room Air 01/02/23 14:43 62 18 108/57 L 98 Room Air 01/02/23 13:54 36.4 C L 51 L 16 164/85 H 95 Room Air 01/02/23 09:15 62 145/76 H 01/02/23 07:26 36.8 C 70 16 162/87 H 96 Room Air Diagnostic Findings Short CBC 01/02/23 Range/Units 08:52 WBC 10.87 H (4.8-10.8) K/ul Hgb 11.1 L (14.0-18.0) g/dl Hct 32.4 L (42.0-52.0) % Plt Count 319 (130-400) K/uL BMP 01/02/23 08:52 Sodium 137 Potassium 3.6 Chloride 103 Carbon Dioxide 28 BUN 6 Creatinine 1.12 Glucose 92 Calcium 8.6 Medications Administered Current Inpatient Medications Acetaminophen (Acetaminophen 325 Mg Tab) 650 mg PO Q4H PRN PRN Reason: Pain or Fever Stop: 01/27/23 19:59 Al Hydrox/Mg Hydrox/Simethicone (Aluminum/Magnesium Susp 30 Ml Udc) 15 ml PO Q4H PRN PRN Reason: Dyspepsia Stop: 01/27/23 19:59 Amlodipine Besylate (Amlodipine Besylate 5 Mg Tab) 5 mg PO DAILY ALEKSANDRA Stop: 01/28/23 08:59 Last Admin: 01/02/23 09:17 Dose: 5 mg Atenolol (Atenolol 50 Mg Tablet) 100 mg PO DAILY ALEKSANDRA Stop: 01/28/23 08:59 Last Admin: 01/02/23 09:16 Dose: 100 mg Atorvastatin Calcium (Atorvastatin 20 Mg Tab) 20 mg PO PM ALEKSANDRA Stop: 01/27/23 20:59 Last Admin: 01/01/23 20:02 Dose: 20 mg Baclofen (Baclofen 10 Mg Tab) 10 mg PO BID ALEKSANDRA Stop: 01/27/23 20:59 Last Admin: 01/02/23 10:05 Dose: 10 mg Clonazepam (Clonazepam 0.5 Mg Tab) 0.5 mg PO BID PRN PRN Reason: Anxiety Stop: 01/27/23 19:59 Last Admin: 01/01/23 17:46 Dose: 0.5 mg Diclofenac Sodium (Diclofenac Sod 1% Gel 100 Gm Tube) 4 gm EXT BID ALEKSANDRA; Protocol Stop: 02/01/23 20:59 Enoxaparin Sodium (Enoxaparin Inj 40 Mg/0.4 Ml Syr) 40 mg SQ DAILY ALEKSANDRA Stop: 01/28/23 08:59 Last Admin: 01/02/23 09:10 Dose: Not Given Ferrous Sulfate (Ferrous Sulfate 325 Mg Tab) 325 mg PO DAILY ALEKSANDRA Stop: 01/28/23 08:59 Last Admin: 01/02/23 09:11 Dose: Not Given Cefepime HCl 2,000 mg/ Syringe 20 mls @ 5 mls/min IV Q12H [facility]; Protocol Stop: 01/08/23 17:59 Metronidazole (Flagyl) 500 mg in 100 mls @ 100 mls/hr IV Q8H [facility] Stop: 01/08/23 16:59 Magnesium Sulfate/Dextrose (Magnesium Sulfate / D5w) 1 gm in 100 mls @ 50 mls/hr IV Q2H [facility] Stop: 01/02/23 21:14 Lactobacillus Acidophilus (Advanced Probiotic 1250 Mg Capsule) 2 cap PO DAILY ALEKSANDRA Stop: 01/28/23 08:59 Last Admin: 01/02/23 09:18 Dose: 2 cap Loperamide HCl (Loperamide Hcl 2 Mg Cap) 2 mg PO Q4H PRN PRN Reason: diarrhea Stop: 01/27/23 19:57 Melatonin (Melatonin 3 Mg Tab) 3 mg PO HS PRN PRN Reason: Sleep Stop: 01/28/23 00:55 Last Admin: 12/29/22 01:42 Dose: 3 mg Ondansetron HCl (Ondansetron Inj 2 Mg/Ml 2 Ml Vial) 4 mg IV Q6H PRN PRN Reason: Nausea Stop: 01/27/23 19:59 Pantoprazole Sodium ([facility] 40 Mg Tab) [facility] Stop: 01/28/23 06:29 Last Admin: 01/02/23 05:09 Dose: 40 mg Vitamin D (Cholecalciferol 400 Units 10 Mcg Tab) 400 units PO DAILY [facility] Stop: 01/28/23 08:59 Last Admin: 01/02/23 09:16 Dose: Not Given
--- NOTE | 2023-01-02 15:09 | Anesthesiology Progress Note ---
Date of Service January 02, 2023 Anesthesia Post Procedure Vital Signs Vital Signs: Temp Pulse Resp BP Pulse Ox O2 Del Method 01/02/23 14:55 57 L 18 109/56 L 96 Room Air 01/02/23 14:43 62 18 108/57 L 98 Room Air 01/02/23 13:54 36.4 C L 51 L 16 164/85 H 95 Room Air 01/02/23 09:15 62 145/76 H 01/02/23 07:26 36.8 C 70 16 162/87 H 96 Room Air 01/01/23 20:00 37.0 C 67 16 121/73 97 Room Air 01/01/23 15:27 36.9 C 61 16 153/83 H 96 Room Air Pain Intensity Back: Pain Intensity: 3 Transfer of Care Handoff Completed per policy Notes Mental Status: alert / awake / arousable Patient Amnestic to Procedure: Yes Nausea / Vomiting: adequately controlled Pain: adequately controlled Airway Patency, RR, SpO2: stable & adequate BP & HR: stable & adequate Hydration State: stable & adequate Anesthetic Complications: no major complications apparent
[2023-01-02] MEDS: MAGNESIUM SULFATE / D5W 1 GM/100 ML BAG IV SCH ×3 (15:26→19:09)
[2023-01-02] MEDS: metroNIDAZOLE 500 MG/100 ML BAG IV SCH (17:05)
[2023-01-02] MEDS: CEFEPIME 2,000 MG in SYRINGE 0 ML IV SCH (18:30)
[2023-01-02] MEDS: DICLOFENAC SOD 1% GEL 100 GM TUBE EXT SCH (19:54)
[2023-01-02] MEDS: ATORVASTATIN 20 MG TAB PO SCH (19:54)
[2023-01-03] MEDS: metroNIDAZOLE 500 MG/100 ML BAG IV SCH ×3 (01:33→16:32)
[2023-01-03] MEDS: PANTOprazole 40 MG TAB PO SCH (05:33)
[2023-01-03] MEDS: CEFEPIME 2,000 MG in SYRINGE 0 ML IV SCH ×2 (05:33→18:19)
[2023-01-03 06:44] LABS: Hematocrit (blood only) 34.1 % (42.0-52.0); Hemoglobin 11.5 g/dl (14.0-18.0); Mean Corpuscular Hemoglobin 31.7 pg (25.0-34.0); Mean Corpuscular Hgb Conc 33.7 g/dL (32.0-36.0); Mean Corpuscular Volume 93.9 fL (80.0-100.0); Mean Platelet Volume 9.3 fL (9.4-12.4); Platelet Count 331 K/uL (130-400); RDW Coefficient of Variation 13.9 % (11.5-14.5); RDW Standard Deviation 47.6 fL (36.4-46.3); Red Blood Count 3.63 M/uL (4.70-6.10); White Blood Count 11.43 K/ul (4.8-10.8)
[2023-01-03 07:14] LABS: BUN Creatinine Ratio 8.1 (10-20); Calcium 8.5 mg/dl (8.6-10.3); Creatinine Clr Calc Pharmacy 57.3 ml/min; Est GFR (African American) 71.8 ml/min; Est GFR (Non-African American) 61.9 ml/min; Magnesium 1.9 mg/dl (1.7-2.4); Potassium 3.6 mmol/L (3.5-5.1)
[2023-01-03] MEDS: CHOLECALCIFEROL 400 UNITS 10 MCG TAB PO SCH (09:08)
[2023-01-03] MEDS: ADVANCED PROBIOTIC 1250 MG CAPSULE PO SCH (09:08)
[2023-01-03] MEDS: FERROUS SULFATE 325 MG TAB PO SCH (09:10)
[2023-01-03] MEDS: ATENOLOL 50 MG TABLET PO SCH (09:10)
[2023-01-03] MEDS: amLODIPine BESYLATE 5 MG TAB PO SCH (09:11)
[2023-01-03] MEDS: ENOXAPARIN INJ 40 MG/0.4 ML SYR SQ SCH (09:11)
[2023-01-03] MEDS: DICLOFENAC SOD 1% GEL 100 GM TUBE EXT SCH ×3 (09:12→20:38)
[2023-01-03] MEDS: BACLOFEN 10 MG TAB PO SCH ×2 (10:00→20:40)
--- NOTE | 2023-01-03 16:00 | Gastroenterology Progress Note ---
Date of Service January 03, 2023 Assessment & Plan (1) Diarrhea: Plan: He seems to be doing well. Unfortunately his pathology is not back yet. I am hoping this is a chronic ulcer ?stercoral. I am out of state starting tomorrow. I will relay info to Dr. Kwong. He can go home and I will have nurse practitioner contact him about his biopsies Admission and Anticipated Discharge Date Admission Date: December 28, 2022 Subjective Feeling well. Had only one bowel movement today soft and solid. Tells me he is going home tomorrow Physical Exam Physical Exam: He looks well Results & Data Vital Signs (Past 12 Hours) Vital Signs Temp Pulse Pulse Resp BP BP Pulse Ox 01/03/23 15:40 37.1 C 67 16 148/76 H 95 01/03/23 09:09 66 20 144/73 H 94 01/03/23 07:15 36.9 C 63 16 157/91 H 95 O2 Del Method 01/03/23 15:40 Room Air 01/03/23 09:09 Room Air 01/03/23 07:15 Room Air
--- NOTE | 2023-01-03 16:13 | Hospitalist Progress Note ---
Date of Service January 03, 2023 Assessment & Plan (1) Diarrhea: (2) Acute UTI (urinary tract infection): (3) Acute proctitis: Plan This is a 82-year-old male who has a significant past medical history of HTN, HLD, CKD stage III, history of bladder cancer status postresection with presence of urostomy, alcohol abuse, tobacco abuse, macular degeneration and anxiety who presents to ED secondary to diarrhea x 3 days. Acute Proctitis Diarrhea recent antibiotic use, stool pcr/c diff negative. Likely 2/2 grange fair food he ate recently. Appetite better, continues w/ several loos stools, GI planning for scope. Patient was started on Zosyn 12/28 for proctitis, will complete 7 days antibiotic therapy. Utilize Imodium as needed. Electrolytes solution for diarrhea. Zosyn changed to cefepime and flagyl Monitor and replete electrolytes. GI evaluated, appreciate recommendation. Colonoscopy showing ulcerated mucosa noted in rectum, otherwise norm, tissue bx to eval for microscopic colitis, one 5mm polyp noted Orthostatic vitals negative. Path pending. OK for dc per GI tomorrow, their office to follow up on path results Acute UTI, complicated recent UTI at end of November, pansensitive E. Coli wbc 15k at presentation, UCx w/ Klebsiella and Enterobacter. C/w with cefepime and flagyl Hypomagnesemia replace mag with 3g mag sulfate repeat mag in a.m.- wnl CKD-3/dehydration:Secondary to acute diarrhea --> resolved renal function stable, chronic cr slightly up at 1.47 at presentation, baseline 1.2. Does not qualify for JAROCHO diagnosis Status post IV fluid Cr back to baseline ~ 1.1 Osteoarthritis pcp previously did CSI to R Knee PCP now referring to ortho for inj and pt does not have ability to get to appt due to transportation issues will trial Voltaren gel bid given active infection unable to entertain idea inpt will need to discuss with our CM to determine if any services available for pt to get transport as op Hx of Bladder ca s/p ileal conduit HTN bp stable, chronic continue atenolol and amlodipine HLD chronic, stable continue statin Hx of ETOH abuse no alcohol in 6 weeks encourage to continue to abstain Tobacco abuse encourage cessation Chronic back pain recently placed on baclofen as OP, monitor DVT ppx: SQ Lovenox Dispo: medical, PT/OT consulted, will need to do stairs prior to d/c, pt does not have transportation access and needs to obtain appt with orthopedics /transportation for eval for corticosteroid inj, will need to address with CM tomorrow if any services available to patient. DNR/DNI PCP:Saloni Admission and Anticipated Discharge Date Admission Date: December 28, 2022 Supervising Physician Co-Signing Physician Notes Patient seen and examined Colonoscopy report yesterday reviewed Pathology pending Continue antibiotics Plan to discharge tomorrow AM to ensure arrangements are made for follow up as w ell as home services and also patient stated no one can come take him home today. Stated daughter will come to take him tomorrow morning Subjective Seen and examined today. Feeling better without diarrhea since yesterday. Tolerating diet without issue. No new issues overnight. No F/C, CP, SOB, N/V, urostomy with typical output per patient. Still with knee pain. Plan on dc home tomorrow. Review of Systems Review of Systems: At least ten systems reviewed and negative except as noted in the HPI. Physical Exam Physical Exam: Gen: WD/WN, NAD, A&O x3 HEENT: Normocephalic, atraumatic, conjunctivae moist, sclerae anicteric, mucous membranes moist. Lung: Clear to Auscultation bilaterally, no wheezes/rales/rhonchi Heart: Regular rate, regular rhythm, no murmurs, rubs, or gallops Abdomen: Soft, NT, ND +BS x 4 +Urostomy Extremities: No edema Skin: Warm, no rash Results & Data Results & Data Vital Signs (Past 12 Hours) Vital Signs Temp Pulse Pulse Resp BP BP Pulse Ox 01/03/23 15:40 37.1 C 67 16 148/76 H 95 01/03/23 09:09 66 20 144/73 H 94 01/03/23 07:15 36.9 C 63 16 157/91 H 95 O2 Del Method 01/03/23 15:40 Room Air 01/03/23 09:09 Room Air 01/03/23 07:15 Room Air Laboratory Results Short CBC 01/03/23 Range/Units 06:16 WBC 11.43 H (4.8-10.8) K/ul Hgb 11.5 L (14.0-18.0) g/dl Hct 34.1 L (42.0-52.0) % Plt Count 331 (130-400) K/uL BMP 01/03/23 06:16 Sodium 136 Potassium 3.6 Chloride 104 Carbon Dioxide 28 BUN 9 Creatinine 1.11 Glucose 95 Calcium 8.5 L Diagnostic Findings Abdomen/Pelvis CT 12/28/22 13:25 CT abd pelvis wo con CLINICAL HISTORY: diarrhea TECHNIQUE: Helical axial images of the abdomen and pelvis were obtained. Automated dose lowering techniques and/or adjustment according to patient size were utilized for this exam. This exam was performed without intravenous contrast. CT DOSE: 1109.45 mGy.cm COMPARISON: None available at the time of this dictation. FINDINGS: Lower chest: Bibasilar atelectasis versus scarring is seen. Liver: Unremarkable. No focal lesions are seen. Gallbladder and biliary tree: No calcified gallstones. Normal caliber wall. No intra- or extrahepatic biliary ductal dilation. Pancreas: Unremarkable, no focal lesions. Spleen: Unremarkable. Adrenals: Unremarkable. Kidneys and ureters: Perinephric stranding is noted bilaterally. Bladder: Status post cystectomy with a ileal conduit noted. Reproductive organs: Not well seen. Bowel: There is mild thickening of the rectal wall. Limited contents are noted in the colon. The appendix is normal. There are postsurgical changes of bowel resection. Lymph nodes Retroperitoneal: Subcentimeter lymph nodes are noted. Pelvic: Unremarkable. Mesenteric: Unremarkable. Peritoneum: Normal. Vessels: Atherosclerotic calcifications are seen. Abdominal wall: Unremarkable. Bones: Degenerative changes in the visualized spine. Multilevel compression deformities are seen and lumbar spine, chronic. IMPRESSION: 1. Mild wall thickening of the rectum may represent an element of proctitis. Liquid contents are compatible with diarrhea. 2. Patient is status post ileal conduit formation. ACT 112: Negative or not required by law. Electronically signed by: Vipin Amos M.D. 12/28/2022 2:30 PM
[2023-01-03] MEDS: ATORVASTATIN 20 MG TAB PO SCH (20:38)
[2023-01-03] MEDS ORDERED: traMADol HCL 50 MG TABLET PO PRN (20:55)
[2023-01-04] MEDS: metroNIDAZOLE 500 MG/100 ML BAG IV SCH ×2 (00:55→09:46)
[2023-01-04] MEDS: PANTOprazole 40 MG TAB PO SCH (06:05)
[2023-01-04] MEDS: CEFEPIME 2,000 MG in SYRINGE 0 ML IV SCH (06:05)
[2023-01-04 09:19] LABS: Calcium 8.6 mg/dl (8.6-10.3); Magnesium 1.6 mg/dl (1.7-2.4); Potassium 3.8 mmol/L (3.5-5.1)
[2023-01-04 09:25] LABS: BUN Creatinine Ratio 12.7 (10-20); Creatinine Clr Calc Pharmacy 57.8 ml/min; Est GFR (African American) 72.6 ml/min; Est GFR (Non-African American) 62.6 ml/min
[2023-01-04] MEDS: amLODIPine BESYLATE 5 MG TAB PO SCH (09:40)
[2023-01-04] MEDS: CHOLECALCIFEROL 400 UNITS 10 MCG TAB PO SCH (09:40)
[2023-01-04] MEDS: FERROUS SULFATE 325 MG TAB PO SCH (09:40)
[2023-01-04] MEDS: ATENOLOL 50 MG TABLET PO SCH (09:40)
[2023-01-04] MEDS: ADVANCED PROBIOTIC 1250 MG CAPSULE PO SCH (09:40)
[2023-01-04] MEDS: ENOXAPARIN INJ 40 MG/0.4 ML SYR SQ SCH (09:41)
[2023-01-04] MEDS: DICLOFENAC SOD 1% GEL 100 GM TUBE EXT SCH (09:41)
[2023-01-04] MEDS: BACLOFEN 10 MG TAB PO SCH (09:42)
[2023-01-04] MEDS ORDERED: MAGNESIUM SULFATE / D5W 1 GM/100 ML BAG IV ONE (10:28)
--- NOTE | 2023-01-04 11:42 | Discharge Summary ---
Discharge Summary Date of Service January 04, 2023 Notes For Next Care Provider Complicated UTI, diarrhea with negative infectious workup -> resolved, mucosal rectal ulcer with non-specific path following up with GI Medication Changes From Visit [facility] to complete course Admission HPI Per Admitting Provider This is a 82-year-old male who has a significant past medical history of HTN, HLD, CKD stage III, history of bladder cancer status postresection with presence of urostomy, alcohol abuse, tobacco abuse, macular degeneration and anxiety who presents to ED secondary to diarrhea x 3 days. Of significance patient was hospitalized at the end of November for urinary tract infection with bueno sensitive E. coli. His blood culture was negative. His Anaplasma screen and DNA came back positive therefore treated with course of doxycycline. Hospital course also complicated with JAROCHO, elevated troponin, transaminitis, thrombocytopenia low magnesium and low sodium which all resolved prior to discharge. Due to conditioning he was then discharged to [facility] on December. He was at [facility] 3 days for which he did well. He was then discharged to home. He had been doing well up until Saturday of this past week. He states family members brought over a lot of [employer] fair food which he ate all of. He was constipated on Saturday and Saturday for which she took an Imodium for. He thought this was for constipation. He then developed loose diarrhea and flatus on Saturday. His symptoms have continued until today. Thus far he has had 5 bowel movements today. He denies any hematochezia or melena. He further denies any nausea or vomiting. He still has an okay appetite. Home health nurse came to the house today and recommended he seek ED due to worsening symptoms. He denies any fever, chills, sweats, lightheadedness, dizziness, chest pain, shortness breath, nausea, vomiting, abdominal pain, dysuria, increased urgency or frequency with urination. He does have a ileal conduit in place and is not having any issues with this. During last hospitalization he was unaware that he had a urinary tract infection although he was encephalopathic. He smokes 3 cigarettes a day and has not had a beer in 6 weeks. He ambulates with a walker. He has been taking his medications. He has chronic low back pain and previous surgery years ago. He was recently prescribed baclofen for this and unsure if this is helping. Admission Exam Per Admitting Provider Constitutional: WD/WN, vitals as above, NAD, sitting up in bed, pleasant, conversing easily Head: Normocephalic, Atraumatic Eyes: PERRL, conjunctivae normal, anicteric sclerae ENMT: external ear and nose normal, oropharynx normal Neck: trachea midline, no thyromegaly normal visual inspection Respiratory: normal respiratory effort, lungs clear to auscultation, no wheeze, rales, rhonchi. Normal insp/exp effort, no accessory muscle use Cardiovascular: RRR, no murmur, no edema Vessels: no JVD or carotid bruit Chest: normal inspection of chest Abdomen: normal bowel sounds, soft, nontender, no hepatosplenomegaly +ileal conduit Musculoskeletal: no cyanosis or clubbing, extremities motor strength 5/5 Skin: no rashes, warm and dry normal turgor Neurologic: PERRL, EOMI, accommodation nl, no face palsy, no dysarthria CN's II-XI intact bilaterally and moves all extremities Psychiatric: A+Ox3, euthymic affect Lymphatic: no cervical or axillary lymphadenopathy : deferred Principal Dx & Hospital Course #1 = Principal Diagnosis (1) Diarrhea: (2) Acute UTI (urinary tract infection): (3) Acute proctitis: Plan 82-year-old male who has a significant past medical history of HTN, HLD, CKD stage III, history of bladder cancer status postresection with presence of urostomy, alcohol abuse, tobacco abuse, macular degeneration and anxiety who presents to ED secondary to diarrhea x 3 days. Acute Proctitis Diarrhea Recent antibiotic use, stool pcr/c diff negative. GI evaluated and performed colonoscopy on 01/02/23 which showed 5mm sessile polyp which was reomved and localize area of erthematous, friable and ulcerated mucosa in the rectum which was biopsied Pathology noted polyp was tubular adenoma and rectal biopsy was necrotic base of an ulcer with inflamed granulation tissue. Findings are non-specific Patient to follow up with [facility] GI to further discuss results Acute UTI, complicated Recent UTI at end of November Urine culture grew Klebsiella and Enterobacter Was on IV cefepime and flagyl, changed to Levaquin on discharge to complete treatment Hypomagnesemia Replaced; Continue po magnesium CKD-3/dehydration:Secondary to acute diarrhea --> resolved Cr slightly up at 1.47 at presentation, baseline 1.2. Does not qualify for JAROCHO diagnosis Cr back to baseline ~ 1.1 Osteoarthritis PCP now referring to ortho for inj and pt does not have ability to get to appt due to transportation issues Outpatient ortho appt set up for Jan 17; CM to help coordinate social needs/ride Hx of Bladder ca s/p ileal conduit Hypertension Stable Continue atenolol and amlodipine HLD Continue statin Hx of ETOH abuse no alcohol in 6 weeks encourage to continue to abstain Tobacco abuse encourage cessation Chronic back pain recently placed on baclofen as OP, monitor Discharge Exam Gen: WD/WN, NAD, A&O x3 HEENT: Normocephalic, atraumatic, conjunctivae moist, sclerae anicteric, mucous membranes moist. Lung: Clear to Auscultation bilaterally, no wheezes/rales/rhonchi Heart: Regular rate, regular rhythm, no murmurs, rubs, or gallops Abdomen: Soft, NT, ND +BS x 4 +Urostomy Extremities: No edema Skin: Warm, no rash Updated Medication List Medication Instructions Recorded Confirmed Type acetaminophen 500 mg tablet 500 - 1,000 mg PO DIRECTED PRN 11/28/18 12/28/22 History (Tylenol Extra Strength) Pain atenolol 50 mg tablet 100 mg PO DAILY 11/28/18 12/28/22 History atorvastatin 20 mg tablet 20 mg PO PM 11/28/18 12/28/22 History cholecalciferol (vitamin D3) 10 400 unit PO DAILY 11/28/18 12/28/22 History mcg/mL (400 unit/mL) oral drops (D-Vi-Tish) clonazepam 1 mg tablet 0.5 mg PO BID PRN Anxiety 11/28/18 12/28/22 History clonazepam 1 mg tablet 1 mg PO HS PRN RESTLESSNESS 11/28/18 12/28/22 History ferrous sulfate 325 mg (65 mg 325 mg PO DAILY 11/28/18 12/28/22 History iron) tablet lorazepam 1 mg tablet 1 mg PO DIRECTED PRN BEFORE 11/28/18 12/28/22 History TRAVELING ordpnfvs-prbtahih-acocc acid 400 1 tab PO DAILY 11/28/18 12/28/22 History mcg-vit K 20 mcg-lycop 300 mcg tablet (Men's One Daily) omeprazole 20 mg capsule,delayed 20 mg PO DAILYBB 11/28/18 12/28/22 History release amlodipine 5 mg tablet 5 mg PO DAILY 05/16/22 12/28/22 History trazodone 50 mg tablet 50 mg PO HS 05/16/22 12/28/22 History magnesium oxide 400 mg (241.3 mg 400 mg PO BID #30 tabs 12/05/22 12/28/22 Rx magnesium) tablet baclofen 10 mg tablet 10 mg PO BID 12/28/22 12/28/22 History nystatin 100,000 unit/gram topical 1 applic topical BID 12/28/22 12/28/22 History cream levofloxacin 750 mg tablet 750 mg PO DAILY 5 days #5 tabs 01/04/23 Rx Hospital Stay Data Consultations 12/28/22 16:10 ED Decision to Admit Stat 12/29/22 07:00 Consult Gastroenterology Routine Procedures Performed Operation Date: 01/02/23 14:30 Actual Procedures p Colonoscopy Polypectomy - Kim Chew Jr, MD Diagnostic Imagining Performed 12/28/22 13:25 CT Abd and Pelvis [CT abd pelvis wo con] Stat Pending Results Patient Have Any Pending Studies at Discharge: No Discharge Instructions Given to Patient (Per Discharging Provider) MEDICATION CHANGES: Please continue Levaquin (antibiotic) once daily x 5 days to complete course for UTI. Continue all other medications. SUMMARY OF TEST RESULTS: You were admitted to hospital secondary to diarrhea and found to have acute proctitis and UTI. Stool cultures and c. diff testing was negative. Diarrhea has been slowly resolving. Colonoscopy showing ulcerated mucosa noted in rectum, otherwise normal, tissue biopsy showing necrotic base of an ulcer with inflamed granulation tissue. Findings are non-specific. PENDING TEST RESULTS: None RECOMMENDATIONS FOR FOLLOW-UP: Please follow-up with primary care provider as scheduled. Continue antibiotics to complete in this entirety. Follow-up with [facility] GI service for further explanation and discussion of pathology from colonoscopy. For knee injection, appointment as above with orthopedic service. [facility] case technician will be contacting you for follow up assistance if needed. OTHER INSTRUCTIONS: Seek medical attention if you have: * temperature above 101 * chest pain or trouble breathing * abdominal pain, nausea, vomiting * diarrhea, dark stools or bloody stools * any unanswered questions or concerns Call 911 if symptoms are severe. Please take good care of yourself. It has been a pleasure taking care of you. Please take care of yourself. If you have any questions regarding your recent hospitalization please contact [facility] and request Bridgett Floist @ [phone]. Total Time Total Time Spent Total Time Spent (In Minutes): 50 Supervising Physician Co-Signing Physician Notes Patient seen and examined Findings and plans as detailed by Prachi Lopez PA-C
== END 2023-01-04 13:12 | disposition home or self-care (01) | DRG 394 ==
LOC: ED 11:56 → 2N 16:22 → SUATTDRO 16:22 → 2N 18:07 → 3N 12-30 17:13

== ENCOUNTER 2024-08-07 18:52 | Inpatient (IN) ==
--- NOTE | 2024-08-07 20:18 | XRay Report ---
INDICATION: Pain TECHNIQUE: 3 views of the left knee were obtained. COMPARISON: None FINDINGS: No displaced acute osseous process is identified. Moderate tricompartmental osteoarthritic changes with joint space narrowing and marginal osteophyte formation. Small suprapatellar joint fluid is identified. Corticated osseous body adjacently to the tibial tuberosity near the patellar tendon attachment likely represents a chronic avulsion fracture deformity. IMPRESSION: No displaced acute osseous process is identified. Small suprapatellar joint fluid. Moderate tricompartmental osteoarthritic changes. Likely chronic injury at the tibial tuberosity over the patella tendon attachment. Electronically signed by Shaun Chowdhury 08-07-2024 8:17 PM
[2024-08-07] MEDS: MoRPHine SULFATE 4 MG/ML 1 ML CARP\\VIAL IM STA (21:10)
--- NOTE | 2024-08-07 21:41 | Emergency Department Note ---
ED Provider Note History of Present Illness Chief Complaint: Fall Stated Complaint: KNEE PAIN Time Seen by Provider: 08/07/24 20:54 83-year-old male who presents to the emergency department with his son for evaluation of a fall in his home this evening (2 hours prior to arrival) after he was walking across to his living room, turning with his walker, and twisted the knee. This caused him to fall backward onto his couch without any other injuries. The patient reports persistent pain and swelling of the knee, rating his discomfort a 10 out of 10. Patient does have a prior history of arthritis of his knees. He is scheduled in the near future for another joint injection. The patient denies any tingling or numbness of the left lower extremity. The patient reports severe pain with attempted ambulation. The son reports that the patient lives at home by himself. Home Medications Medication Instructions Recorded Confirmed Type acetaminophen 500 mg tablet 500 - 1,000 mg PO Q8H PRN Pain 11/28/18 08/07/24 History (Tylenol Extra Strength) atenolol 50 mg tablet 100 mg PO DAILY 11/28/18 08/07/24 History atorvastatin 20 mg tablet 20 mg PO PM 11/28/18 08/07/24 History cholecalciferol (vitamin D3) 10 400 unit PO DAILY 11/28/18 08/07/24 History mcg/mL (400 unit/mL) oral drops (D-Vi-Tish) clonazepam 1 mg tablet 0.5 mg PO BID PRN Anxiety 11/28/18 08/07/24 History clonazepam 1 mg tablet 1 mg PO HS PRN RESTLESSNESS 11/28/18 08/07/24 History ferrous sulfate 325 mg (65 mg 325 mg PO DAILY 11/28/18 08/07/24 History iron) tablet lorazepam 1 mg tablet 1 mg PO DIRECTED PRN BEFORE 11/28/18 08/07/24 History TRAVELING svercyuj-genoxzfa-gblnj acid 400 1 tab PO DAILY 11/28/18 08/07/24 History mcg-vit K 20 mcg-lycop 300 mcg tablet (Men's One Daily) omeprazole 20 mg capsule,delayed 20 mg PO DAILYBB 11/28/18 08/07/24 History release amlodipine 5 mg tablet 5 mg PO DAILY 05/16/22 08/07/24 History trazodone 50 mg tablet 50 mg PO HS 05/16/22 08/07/24 History magnesium oxide 400 mg (241.3 mg 400 mg PO BID #30 tabs 12/05/22 08/07/24 Rx magnesium) tablet baclofen 10 mg tablet 10 mg PO BID 12/28/22 08/07/24 History nystatin 100,000 unit/gram topical 1 applic topical BID PRN Skin 12/28/22 08/07/24 History cream Irritation oxycodone 5 mg tablet 5 mg PO Q4H PRN pain #15 tabs 08/07/24 Rx tizanidine 4 mg capsule 4 mg PO BID 08/07/24 08/07/24 History Allergies Allergy/AdvReac Type Severity Reaction Status Date / Time meclizine Allergy Severe THROAT/TONGUE Verified 08/07/24 22:31 SWELLS aspirin AdvReac Unknown History of Verified 08/07/24 22:31 ulcers Past Med/Surg History Problem List (Updated 08/08/24 @ 00:33 by Juan Willis) Alcohol abuse with intoxication (Acute) Hyponatremia (Acute) Effusion, left knee (Acute) Left knee sprain (Acute) Diarrhea (Acute) Acute UTI (urinary tract infection) (Acute) Acute proctitis (Acute) Acute kidney injury superimposed on chronic kidney disease (Acute) Scalp laceration Sepsis (Acute) Anaplasmosis (Acute) Acute renal failure (Acute) Elevated troponin (Acute) Thrombocytopenia (Acute) Lymphopenia (Acute) UTI (urinary tract infection) Anaplasmosis Severe sepsis Tobacco use Anxiety Hyponatremia CKD (chronic kidney disease), stage III Diarrhea (Acute) JAROCHO (acute kidney injury) (Acute) Acute lower GI bleeding (Acute) Acute UTI (urinary tract infection) (Acute) Septic arthritis of elbow, right Encounter for pre-operative examination Degenerative joint disease of elbow, right Effusion of elbow joint, right Alcoholism /alcohol abuse Right elbow pain (Acute) . Macular degeneration (Chronic) Tinnitus (Chronic) Leukocytosis (Acute) GI bleed (Acute) Renal failure (Acute) History of carcinoma of bladder (Chronic) Dyslipidemia (Chronic) History of colon polyps (Chronic) Hypertension (Chronic) Anemia due to blood loss, acute (Acute) Acute kidney injury (Acute) Status post lumbar surgery (Chronic) Ankle fracture (Acute) Surgical History H/O total cystectomy with ileal conduit Family History Other Cancer Coronary heart disease Social History Smoking Status: Current every day smoker Tobacco Type: Cigarettes Cigarettes Per Day: 6; Second Hand Exposure: No; Do You Dip or Chew Tobacco: No; Hx Alcohol Use: Yes Alcohol type: beer Alcohol Intake Frequency: 2-3 x/Week Hx Substance Use: No Preferred Language: Faroese Communication Ability: Effective Communication Ability Comment: Macular degeneration, legally blind Oval Or Circular Glass Cutter Required: No Beliefs That Will Affect Care: None marital status: / Current Living Situation: Alone Other Information That Helps Us Care for You: No Feels Safe at Home: Yes Safety Concerns: Feels Safe At This Time Assistive Devices: Walker Assistive Devices Comment: Hard of hearing. No hearing aides due to cost Physical Exam Vital Signs Vital Signs - 24 hr 08/07/24 19:11 08/07/24 20:54 08/07/24 22:17 Temperature 36.6 C Temperature Source Oral Pulse Rate 64 Pulse Rate [Right Finger] 72 72 Pulse Rhythm Regular Pulse Strength Normal Respiratory Rate 16 16 16 Respiratory Effort / Characteristics Non-Labored Spontaneous Non-Labored Non-Labored Respiratory Depth Normal Normal Normal Respiratory Pattern Regular Regular Regular Blood Pressure 145/79 H Blood Pressure [Left Arm] 149/95 H 164/90 H Blood Pressure Mean 101 Blood Pressure Mean [Left Arm] 113 114 Blood Pressure Position [Left Arm] Lying Lying Pulse Oximetry 97 97 96 Oxygen Delivery Method Room Air Room Air Room Air Sepsis Recent Fever Within 48 Hours No Sepsis New/Unexplained Change in Mental Status No Sepsis Action Taken by Nursing No Action Required CONSTITUTIONAL: Healthy and well nourished. Patient appears in moderate discomfort. Smell of EtOH is present. HEENT: Normocephalic, atraumatic. NECK: Full active range of motion without discomfort. RESPIRATORY: Clear to auscultation bilaterally with no wheezing, crackles, rhonchi or stridor. CARDIOVASCULAR: Regular rate and rhythm with no murmurs, rubs or gallops. GASTROINTESTINAL: Bowel sounds present in all quadrants. Soft and nontender to palpation. MUSCULOSKELETAL: Examination shows a large left knee effusion without overriding abrasions, ecchymosis or open wounds. Patient could not tolerate any attempted range of motion. Negative logroll of the hip. No focal tenderness to palpation about the calf, ankle or foot region. Pedal pulses are intact. INTEGUMENTARY: No rash or other significant dermatologic conditions noted. HEMATOLOGIC: No ecchymosis or petechiae. PSYCHIATRIC: Positive affect. NEUROLOGIC: Left lower extremity is sensory intact. Course Course Patient history and physical exam were performed. Nursing notes were reviewed. Patient was seen during a period of high volume and acuity of patients. Triage protocol orders were placed and started prior to my exam. X-rays of the left knee were performed, showing a joint effusion without evidence for fractures or dislocations. Radiologist does question possible chronic changes at the tibial tubercle, however it is noted that the patient does not have any tenderness to palpation over this region. The patient was administered IM morphine and Zofran for initial pain control. After approximately 45 minutes, the patient reports that this did not help at all with his pain. He was then administered IM Dilaudid, and again reassessed at approximately 30 minutes without any relief. The patient and son again expressed concern for his inability to go home because of severe pain with any attempted weightbearing. At this point, I did reach out to the [facility] hospitalist service, who agreed to evaluate the patient. In the meantime, orders were placed for labs, showing a white count of over 16,000 with notable hyponatremia at 126. Medical alcohol was 113.5. Please see hospitalist dictations for further treatment and final disposition, including an orthopedic consultation. The case was also discussed with Dr. Fischer, ED attending physician, who agrees with workup and admission for inability to ambulate. Administered Medications Baclofen (Baclofen 10 Mg Tab) 10 mg PO BID ALEKSANDRA Stop: 09/06/24 23:14 Last Admin: 08/08/24 00:04 Dose: 10 mg Documented By: JAYRO Clonazepam (Clonazepam 0.5 Mg Tab) 0.5 mg PO BID PRN PRN Reason: Anxiety Stop: 09/06/24 23:09 Last Admin: 08/07/24 23:44 Dose: 0.5 mg Documented By: JAYRO Sodium Chloride (Nss) 500 mls @ 100 mls/hr IV .Q5H STA Stop: 08/08/24 05:25 Last Admin: 08/08/24 01:20 Dose: 100 mls/hr Documented By: WESTON Lorazepam (Lorazepam 2 Mg/1 Ml Vial) 2 mg IV UD PRN; Protocol PRN Reason: EtOH Withdrawal AWSS Score 8,9 Stop: 09/06/24 23:07 Last Admin: 08/07/24 23:19 Dose: 2 mg Documented By: JAYRO Trazodone HCl (Trazodone Hcl 50 Mg Tab) 50 mg PO HS ALEKSANDRA Stop: 09/06/24 23:14 Last Admin: 08/08/24 00:04 Dose: 50 mg Documented By: JAYRO Discontinued Medications Clonidine HCl (Clonidine Hcl 0.1 Mg Tab) 0.1 mg PO NOW STA Stop: 08/07/24 22:35 Last Admin: 08/07/24 22:57 Dose: 0.1 mg Documented By: JAYRO Gabapentin (Gabapentin 600 Mg Tab) 1,200 mg PO NOW STA Stop: 08/07/24 23:40 Last Admin: 08/08/24 00:04 Dose: 1,200 mg Documented By: JAYRO Hydromorphone HCl (Hydromorphone Inj 0.5 Mg/0.5 Ml Syr) 0.5 mg IM NOW STA Stop: 08/07/24 21:41 Last Admin: 08/07/24 21:47 Dose: 0.5 mg Documented By: WESTON Thiamine HCl 100 mg/ Syringe 10 mls @ 2 mls/min IV NOW STA Stop: 08/07/24 22:39 Last Admin: 08/07/24 22:57 Dose: 2 mls/min Documented By: JAYRO Sodium Chloride (Nss) 1,000 mls @ 999 mls/hr IV .Q1H1M ONE Stop: 08/08/24 00:30 Last Admin: 08/08/24 00:04 Dose: Not Given Documented By: JAYRO Morphine Sulfate (Morphine Sulfate 4 Mg/Ml 1 Ml Carp\Vial) 4 mg IM NOW STA Stop: 08/07/24 21:05 Last Admin: 08/07/24 21:10 Dose: 4 mg Documented By: WESTON Medical Decision Making Medical Records Attestation: I reviewed the patient's medical records. Home Medications was personally reviewed by me Laboratory Data Attestation: I reviewed the patient's lab results. 08/07/24 22:55 08/07/24 22:55 Lab Results 08/07/24 08/07/24 Range/Units 22:27 22:55 WBC 16.34 H (4.8-10.8) K/ul RBC 4.37 L (4.70-6.10) M/uL Hgb 14.7 (14.0-18.0) g/dl Hct 41.3 L (42.0-52.0) % MCV 94.5 (80.0-100.0) fL MCH 33.6 (25.0-34.0) pg MCHC 35.6 (32.0-36.0) g/dL RDW Std Deviation 42.1 (36.4-46.3) fL RDW Coeff of Hemanth 11.9 (11.5-14.5) % Plt Count 242 (130-400) K/uL MPV 8.6 L (9.4-12.4) fL Immature Gran % (Auto) 0.9 % Neut % (Auto) 79.4 % Lymph % (Auto) 11.3 % [place] % (Auto) 6.8 % Eos % (Auto) 1.2 % Baso % (Auto) 0.4 % Neut # (Auto) 12.97 H (1.40-6.50) K/uL Lymph # (Auto) 1.85 (1.20-3.40) K/uL [place] # (Auto) 1.11 H (0.11-0.59) K/uL Eos # (Auto) 0.20 (0.00-0.50) K/uL Baso # (Auto) 0.07 (0.00-0.20) K/uL Immature Gran # (Auto) 0.14 (0.01-0.20) K/uL PT 10.6 (9.0-12.0) Seconds INR 1.0 (0.9-1.1) Sodium 126 L (136-145) mmol/L Potassium 4.6 (3.5-5.1) mmol/L Chloride 94 L (98-107) mmol/L Carbon Dioxide 25 (21-32) mmol/L Anion Gap 7 (3-11) BUN 11 (6-23) mg/dl Creatinine 1.03 (0.6-1.4) mg/dl Est Cr Clr Drug Dosing 64.7 ml/min eGFR 72.53 BUN/Creatinine Ratio 10.7 (10-20) Glucose 91 (70-99(Fasting)) mg/dl Calcium 8.9 (8.6-10.3) mg/dl Total Bilirubin 0.6 (0.2-1.0) mg/dl AST 22 (13-39) U/L ALT 11 (7-52) U/L Alkaline Phosphatase 89 (34-104) U/L Total Protein 6.8 (6.0-8.3) gm/dl Albumin 4.1 (3.4-5.0) gm/dl Globulin 2.7 (2.5-4.0) gm/dl Albumin/Globulin Ratio 1.5 (0.9-2) Ethyl Alcohol mg/dL 113.5 H (<10.0) mg/dl Imaging Data Attestation: I personally reviewed and interpreted this imaging study as follows: My Impression: My interpretation of left knee x-ray shows a joint effusion without evidence for fracture or dislocation. Radiologist does question a possible age-indeterminate avulsion fracture at the tibial tubercle, however the patient does not have any focal tenderness to palpation over this region. Radiologist report was otherwise reviewed with concurrence. Radiologist's Impression: Knee X-Ray 08/07/24 19:14 INDICATION: Pain TECHNIQUE: 3 views of the left knee were obtained. COMPARISON: None FINDINGS: No displaced acute osseous process is identified. Moderate tricompartmental osteoarthritic changes with joint space narrowing and marginal osteophyte formation. Small suprapatellar joint fluid is identified. Corticated osseous body adjacently to the tibial tuberosity near the patellar tendon attachment likely represents a chronic avulsion fracture deformity. IMPRESSION: No displaced acute osseous process is identified. Small suprapatellar joint fluid. Moderate tricompartmental osteoarthritic changes. Likely chronic injury at the tibial tuberosity over the patella tendon attachment. Electronically signed by Shaun Chowdhury 08-07-2024 8:17 PM MDM Narrative See ED Course section for further details of today's visit. The patient presents for evaluation of an injury to his left knee. The patient reports twisting the knee while attempting to turn with his walker. The patient denies any other injuries after he fell onto his couch. X-rays of the left knee shows a joint effusion without evidence for fracture or dislocation, however because of the patient's inability to ambulate, the patient and son were concerned for his ability to go home. The patient was administered 2 rounds of IM opioid analgesics without any relief of his pain. Review of labs also shows a moderate leukocytosis of uncertain etiology. Patient also has a hyponatremia, likely secondary to his chronic alcohol use. Given his inability to ambulate, as well as his abnormal labs, I do feel that the patient warrants admission with orthopedic referral, and discussion for possible placement. The case was also discussed with Dr. Fischer, ED attending physician, who agrees with workup and admission for inability to ambulate. Impression Left knee sprain, Effusion, left knee, Hyponatremia, Alcohol abuse with intoxication Discharge Plan Visit Data Chief Complaint: Fall Stated Complaint: KNEE PAIN ED Provider: Douglas Fischer ED Midlevel Provider: Juan Willis Discharge Problem: Left knee sprain, Effusion, left knee, Hyponatremia, Alcohol abuse with intoxication Patient Disposition: Home - Self-Care Discharge Instructions Interventions: ED Discharge Assessment Last Done: 08/08/24 00:44 Discharge Problem: Left knee sprain Qualifiers: Encounter type: initial encounter Involved ligament of knee: unspecified ligament Qualified Code(s): S83.92XA - Sprain of unspecified site of left knee, initial encounter
[2024-08-07] MEDS: HYDROmorphone INJ 0.5 MG/0.5 ML SYR IM STA (21:47)
[2024-08-07] MEDS ORDERED: oxyCODONE HCL IR 5 MG TAB (IMMEDIATE RELEASE) PO PRN (22:29)
[2024-08-07] MEDS ORDERED: PROMETHAZINE 6.25 MG/50.25 ML BAG IV PRN (22:29)
--- NOTE | 2024-08-07 22:36 | Emergency Department Note ---
ED Visit Note The patient was seen and examined with Alba. I performed a substantive portion of all aspects of the medical decision making and agree with the h istory, physical and findings. Please see the note for disposition and details. .
[2024-08-07] MEDS: THIAMINE HCL 100 MG in SYRINGE 9 ML IV STA (22:57)
[2024-08-07] MEDS: cloNIDine HCL 0.1 MG TAB PO STA (22:57)
[2024-08-07] MEDS ORDERED: Ativan IV Alcohol Withdrawal--Active Protocol IV PRN (23:08)
[2024-08-07] MEDS ORDERED: LORazepam 2 MG/1 ML VIAL IV PRN ×2 (23:08)
[2024-08-07] MEDS ORDERED: MoRPHine SULFATE 4 MG/ML 1 ML CARP\\VIAL IV PRN (23:09)
[2024-08-07 23:12] LABS: Basophils # (auto) 0.07 K/uL (0.00-0.20); Basophils % (auto) 0.4 %; Eosinophils % (auto) 1.2 %; Hematocrit (blood only) 41.3 % (42.0-52.0); Hemoglobin 14.7 g/dl (14.0-18.0); Immature Granulocytes # (auto) 0.14 K/uL (0.01-0.20); Immature Granulocytes % (auto) 0.9 %; Lymphocytes # (auto) 1.85 K/uL (1.20-3.40); Lymphocytes % (auto) 11.3 %; Mean Corpuscular Hemoglobin 33.6 pg (25.0-34.0); Mean Corpuscular Hgb Conc 35.6 g/dL (32.0-36.0); Mean Corpuscular Volume 94.5 fL (80.0-100.0); Mean Platelet Volume 8.6 fL (9.4-12.4); Monocytes # (auto) 1.11 K/uL (0.11-0.59); Monocytes % (auto) 6.8 %; Neutrophils # (auto) 12.97 K/uL (1.40-6.50); Neutrophils % (auto) 79.4 %; Platelet Count 242 K/uL (130-400); RDW Coefficient of Variation 11.9 % (11.5-14.5); RDW Standard Deviation 42.1 fL (36.4-46.3); Red Blood Count 4.37 M/uL (4.70-6.10); White Blood Count 16.34 K/ul (4.8-10.8)
[2024-08-07] MEDS: LORazepam 2 MG/1 ML VIAL IV PRN (23:19)
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
[2024-08-07 23:27] LABS: Albumin Globulin Ratio 1.5 (0.9-2); Albumin Level 4.1 gm/dl (3.4-5.0); BUN Creatinine Ratio 10.7 (10-20); Bilirubin,Total 0.6 mg/dl (0.2-1.0); Calcium 8.9 mg/dl (8.6-10.3); Creatinine Clr Calc Pharmacy 64.7 ml/min; Globulin 2.7 gm/dl (2.5-4.0); Potassium 4.6 mmol/L (3.5-5.1); Total Protein 6.8 gm/dl (6.0-8.3)
[2024-08-07] MEDS ORDERED: GABAPENTIN 1200MG ALCOHOL WITHDRAWAL LOAD PO STA (23:30)
[2024-08-07] MEDS: clonazePAM 0.5 MG TAB PO PRN (23:44)
[2024-08-07 23:55] LABS: Prothrombin Time 10.6 Seconds (9.0-12.0)
[2024-08-08] MEDS: GABAPENTIN 600 MG TAB PO STA (00:04)
[2024-08-08] MEDS: SODIUM CHLORIDE 0.9% 1,000 ML IV ONE (00:04)
[2024-08-08] MEDS: traZODone HCL 50 MG TAB PO SCH (00:04)
[2024-08-08] MEDS: BACLOFEN 10 MG TAB PO SCH (00:04)
[2024-08-08 00:30] LABS: Appearance Urine Clear (Clear); Bacteria Urine Automated 4+ (None Seen); Bilirubin Urine Negative (Negative); Blood Urine Negative (Negative); Cast Urine Automated 0-2 /lpf (0-2); Color Urine Yellow; Epithelial Cell Urine Auto 0-2 /hpf (0-2); Glucose Urine UA Negative (Negative); Ketones Urine Negative (Negative); Leukocyte Esterase Urine 1+ (Negative); Nitrite Urine Negative (Negative); Protein Urine Negative (Negative); RBC Urine Automated 0-2 /hpf (0-2); Specific Gravity Urine 1.003 (1.000-1.030); Urobilinogen Urine Negative (Negative)
[2024-08-08] MEDS: SODIUM CHLORIDE 0.9% 500 ML IV STA (01:20)
--- NOTE | 2024-08-08 01:27 | XRay Report ---
Exam(s): XR CXR 1 VIEW EXAM: XR Chest, 1 View CLINICAL HISTORY: Reason for exam: hyponatremia. TECHNIQUE: Frontal view of the chest. COMPARISON: 11/28/22 FINDINGS: Lungs: No consolidation. Pleural space: No pleural effusion or pneumothorax. Heart: No cardiomegaly or pulmonary vascular congestion. Bones/joints: No acute fracture. No dislocation. IMPRESSION: No evidence of acute cardiopulmonary disease. Electronically signed by: Zahra Gaston M.D. 08/08/24 01:26 AM
[2024-08-08] MEDS: GABAPENTIN 600 MG TAB PO SCH ×2 (05:20→20:06)
--- OUTSIDE RECORDS SUMMARY | 2024-08-08 05:25 | External Medical Summary | Summary of Care ---
Author Name Unknown Organization [facility] Address [address] [place] [facility] [place] [place] [address] Phone [phone] Care Team Providers Care Orthopedics Nurse Name Role Phone Tarah Guallpa MD Primary Care Provider [phone] Reason for Visit * Reason Comments eRx-Medication Refill Encounter Details Date Type Department Care Team (Late st Contact Info) Description 07/17/2024 Refill [facility] [address] [facility] [place] [address] Tarah Guallpa MD [address] [facility] [place] [id number] Gastrointestinal hemorrhage associated with gastric ulcer; Other insomnia Allergies Active Allergy Reactions Criticality Noted Date Comments Meclizine Hcl 12/29/2014 Throat swelling and tongue swelling Aspirin 03/05/2016 documented as of this encounter (statuses as of 07/20/2024) Medications ferrous sulfate (FEOSOL) 325 (65 FE) MG TabletIndication s:Anemia, unspecified type Take 1 Tab by mouth daily. 90 Tab 1 016 Active cholecalciferol, VIT D3, (D--THERON) 400 UNIT/ML oral solutionIndicati ons:Vitamin D deficiency Take 1 mL by mouth daily. 30 mL 11 017 Active Multiple Vitamins-Mineral s (MENS MULTIVITAMIN PLUS) Tablet Take 1 Tab by mouth daily. 017 Active Acetaminophen 500 MG Oral Tablet Take 1-2 Tablets by mouth. 016 Active QC NATURAL VEGETABLE LAXATIVE 8.6 MG TabletIndication s:Constipation, unspecified constipation type TAKE 1 TABLET BY MOUTH TWICE DAILY FOR CONSTIPATION 60 Tab 5 020 Active Additional Information Patient not taking.Reported on 06/04/2022 Nystatin 044822 UNIT/GM External Cream Apply 1 g topically to affected area in the morning and 1 g before bedtime. To affacted area for two weeks.. 60 g 2 023 Active LORazepam 1 MG Oral Tablet (Ativan) Take 1 Tablet by mouth daily as needed. Before traveling Active Magnesium Oxide 400 MG Oral Capsule Take 1 Capsule by mouth in the morning and 1 Capsule before bedtime. Active levoFLOXacin 750 MG Oral Tablet (Levaquin) Take 1 Tablet by mouth in the morning. For 5 days. Active Zoster Vac Recomb Adjuvanted 50 MCG/0.5ML Intramuscular Suspension Reconstituted (Shingrix) Inject 0.5 mL into a large muscle now and repeat dose in 60 to 180 days 1 Each 1 023 Active Baclofen 10 MG Oral Tablet (Lioresal) TAKE 1 TABLET BY MOUTH IN THE MORNING AND BEFORE BEDTIME 180 Tablet 1 024 Active amLODIPine Besylate 5 MG Oral Tablet (Norvasc) Take 1 Tablet by mouth in the morning. 90 Tablet 3 024 Active Atorvastatin Calcium 20 MG Oral Tablet (Lipitor)Indicat ions:Hyperlipide catherine with target LDL less than 100 TAKE 1 TABLET EVERY DAY IN THE EVENING FOR HIGH CHOLESTEROL 90 Tablet 3 024 Active Atenolol 50 MG Oral Tablet (Tenormin)Indica tions:HTN, goal below 150/90 TAKE 2 TABS BY MOUTH DAILY FOR BLOOD PRESSURE 60 Tablet 024 Active clonazePAM 1 MG Oral Tablet (KlonoPIN)Indica tions:Insomnia TAKE 1 TABLET AT BEDTIME & 1/2 TABLET TWICE DAILY NEEDED 60 Tablet 025 Active LORazepam 1 MG Oral Tablet (Ativan)Indicati ons:Panic disorder TAKE 1 TABLET BY MOUTH BEFORE TRAVEL. MAY REPEAT AFTER 30 MINUTES NEEDED 15 Tablet 025 Active Omeprazole 20 MG Oral Capsule Delayed Release (PriLOSEC)Indica tions:Gastrointe stinal hemorrhage associated with gastric ulcer TAKE ONE CAPSULE BY MOUTH EVERY DAY ONE HOUR BEFORE FIRST MEAL OF THE DAY 90 Capsule 025 Active traZODone HCl 50 MG Oral Tablet (Desyrel)Indicat ions:Other insomnia TAKE 1 TABLET BY MOUTH EVERYDAY AT BEDTIME 90 Tablet 025 Active tiZANidine HCl 4 MG Oral Capsule TAKE 1 CAPSULE BY MOUTH IN THE MORNING AND IN THE EVENING 60 Capsule 2 025 Active tiZANidine HCl 4 MG Oral Capsule Take 1 Capsule by mouth in the morning and 1 Capsule in the evening. 60 Capsule 5 024 2024 Discontinued traZODone HCl 50 MG Oral Tablet (Desyrel)Indicat ions:Other insomnia TAKE 1 TABLET BY MOUTH EVERYDAY AT BEDTIME 90 Tablet 024 2024 Discontinued Omeprazole 20 MG Oral Capsule Delayed Release (PriLOSEC)Indica tions:Gastrointe stinal hemorrhage associated with gastric ulcer TAKE ONE CAPSULE BY MOUTH EVERY DAY ONE HOUR BEFORE FIRST MEAL OF THE DAY 90 Capsule 024 2024 Discontinued documented as of this encounter (statuses as of 07/20/2024) Active Problems Problem Noted Date Diagnosed Date History of alcohol abuse 03/01/2023 Presence of urostomy 08/13/2022 Stage 3a chronic kidney disease 03/14/2020 Overview: Per CKD protocol Tobacco use disorder 10/05/2016 Hyperlipidemia with target LDL less than 100 09/2012 Overview (09/05/2015): ICD-10 update of inactive term Macular degeneration 09/13/2009 Impotence of organic origin 08/07/2007 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 PURE HYPERCHOLESTEROLEM 01/06/199804/05 Overview (04/14/2009): Per Lipid Taxonomy. ALCOHOL ABUSE-CONTINUOUS documented as of this encounter (statuses as of 07/20/2024) Immunizations Name Administration Dates Next Due COVID-19, MRNA-LNP, PF, 30 M CG/0.3 mL, 12 YRS AND ABOVE, IM (PFIZER-Comirnaty) 03/04/2024 Pneumococcal Conjugate Vacc, 13 Valent (Prevnar) 01/27/2016 Pneumococcal Polysaccharide PPV23 (Pneumovax) 04/25/2007 Seasonal Influenza Vac., MDV , IM, 0.5 mL (Fluzone) 02/19/2014,03/16/2013,03/18/2012,100 07/2010,02/21/2010,02/15/2009,03/29/20 08,03/12/2007 Seasonal Influenza, High Dos e, Trivalent, PF, IM (Fluzone HD) 03/04/2024 Seasonal Influenza, PF, 6 M & above, IM , (FluLaval or Fluzone) 01/26/2020,02/25/2019,02/12/2018,100 09/201602/07/2018 Seasonal Influenza, Quadriva lent Hd (Fluzone Hd) 03/01/2023,02/23/2022,03/15/2021 Seasonal Influenza, Quadriva lent, No Preserve, IM 01/27/2016,02/16/2015 TDAP (age 10 and older)(Boostrix) 05/21/2014 documented as of this encounter Social History Tobacco Use Types Packs/Day Years Used Date Smoking Tobacco: Every Day Cigarettes Smokeless Tobacco: Never Comments:quit for 6 mo 06/11 - 12/09. Now 2-3 cig's per day/ 1 pack per week Alcohol Use Standard Drinks/Week Comments Yes 0 (1 standard drink = 0.6 oz pure alcohol) As of 2.17.2006, the last noted alcohol intake was 18 ounces. 1 case per week PHQ-2 Answer Date Recorded PHQ-2 Score 2 04/02/2018 Hunger Vital Sign Answer Date Recorded Within the past 12 months, y ou worried that your food would run out before you got the money to buy more. Never true 01/09/20 23 Within the past 12 months, t he food you bought just didn't last and you didn't have money to get more. Never true 01/08/2023 Childcare Answer Date Recorded Do you feel overwhelmed with taking care of a child, family member or friend? No 01/08/2023 Does your family need help f inding childcare? (Household - for ages 0-17 years) Not on file 01/08/2023 Clothing Answer Date Recorded Have you been unable to get clothing when it was really needed? No 01/08/2023 Is your family able to get c lothes or diapers when needed? (Household - for ages 0-17 years) Not on file 01/08/2023 Personal Safety Answer Date Recorded Do you feel unsafe or have concerns for your saf ety? No 01/08/2023 Do you have concerns for you r family's safety? (Household - for ages 0-17 years) Not on file 01/08/2023 Utilities Answer Date Recorded Do you have trouble paying y our heating, water, or electric bill? (Adult - for ages 18 years and over) Not on file 01/15/2024 Is your family able to pay t he heat, water, or electric bill? (Household - for ages 0-17 years) Not on file 01/15/2024 Does your family have access to good internet? (Household - for ages 0-17 years) Not on file 01/15/2024 Employment Status Answer Date Recorded Are you unemployed or without regular income? No 01/08/2023 Does the household have a re gular source of income? (Household - for ages 0-17 years) Not on file 01/08/2023 Social Connections Answer Date Recorded How often do you feel lonely or isolated from those around you? (Adult - for ages 18 years and over) Not on file 01/15/2024 Financial Resource Strain Answer Date R ecorded Do you have any trouble payi ng for your medications, or do you think you might in the future? No 01/08/2023 Does your family have troubl e paying for medicine? (Household - for ages 0-17 years) Not on file 01/08/2023 Transportation Needs Answer Date Record ed READ ONLY Do you have troubl e getting a ride to medical visits or work? Sometimes True 01/08/2023 Does your family have a hard time getting a ride to doctors visits? (Household - for ages 0-17 years) Not on file 01/08/2023 Has lack of transportation k ept you from medical appointments, meetings, work, or from getting things needed for daily living? Check all that apply. (Adult - for ages 18 years and over) Not on file 01/08/2023 Do you (or your family) have trouble finding or paying for a ride (transportation)? (Household - for ages 0-17 years) Not on file 01/08/2023 Housing Stability Answer Date Recorded Do you currently live in a s helter or have no steady place to sleep at night? No 01/08/2023 READ ONLY Do you think you a re at risk of becoming homeless? No 01/08/2023 Does your family worry about paying for your home or becoming homeless? (Household - for ages 0-17 years) Not on file 0 01/08/2023 Are you homeless or worried that you might be in the future? (Adult - for ages 18 years and over) Not on file Are you (or your family) luz eless or worried that you might be in the future? (Household - for ages 0-17 years) Not on file Food Insecurity Answer Date Recorded Do you need food for this week? No 01/08/2023 Are you able to get enough f ood for your family? (Household - for ages 0-17 years) Not on file 01/08/2023 Does your family need food t his week? (Household - for ages 0-17 years) Not on file 01/08/2023 Do you always have enough fo od for your family? 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 Not on file Not on file Not on file documented as of this encounter Miscellaneous Notes * Telephone Encounter - Tarah Guallpa MD - 07/20/2024 11:20 AM EDTSigned Prescriptions: Disp Refills Omeprazole 20 MG Oral Capsule Delayed Rele*90 Cap*0 Sig: TAKE ONE CAPSULE BY MOUTH EVERY DAY ONE HOUR BEFORE FIRST MEAL OF THE DAYAuthorizing Provider: KEON GUALLPA traZODone HCl 50 MG Oral Tablet (Desyrel) 90 Tab*0 Sig: TAKE 1 TABLET BY MOUTH EVERYDAY AT BEDTIMEAuthorizing Provider: TARAH GUALLPA tiZANidine HCl 4 MG Oral Capsule 60 Cap*2Sig: TAKE 1 CAPSULE BY MOUTH IN THE MORNING AND IN THE EVENINGAuthorizing Provider: TARAH GUALLPA-- * Telephone Encounter - Hui Dias [facility] - 07/20/2024 10:23 AM EDTPending Prescriptions: Disp Refills Omeprazole 20 MG Oral Capsule Delayed Rele*90 Cap*0 Sig: TAKE ONE CAPSULE BY MOUTH EVERY DAY ONE HOUR BEFORE FIRST MEAL OF THE DAY traZODone HCl 50 MG Oral Tablet [Pharmacy *90 Tab*0 Sig: TAKE 1 TABLET BY MOUTH EVERYDAY AT BEDTIME tiZANidine HCl 4 MG Oral Capsule [Pharmacy*60 Cap*5 Sig: TAKE 1 CAPSULE BY MOUTH IN THE MORNING AND IN THE EVENING * Telephone Encounter - Hui Dias RP - 07/20/2024 10:22 AM EDT Protocol not met Patient due for labs and office visit - just notified 07/16 Please approve if appropriate. Thank You, Hui Dias [facility] Clinical Pharmacist [facility] [phone] [id number] 07/20/2024, 10:23 AM documented in this encounter Plan of Treatment Upcoming Encounters Date Type Department Care Team (Late st Contact Info) Description 07/28/2024 9:00 AM EDT Office Visit Orthopaedics [facility] [address] [place] [address] Shaista Mcintosh MD [address] [place] [address] Health Maintenance Due Date Last Done Comments Zoster Vaccines (1 of 2) 12/10/1991 Adult Wellness Visit 12/10/2007 Depression Screening 04/02/2019 04/02/2018 Albumin/Creatinine Ratio 12/10/2020 12/11/2019 GFR 08/31/2023 03/01/2023, 0910/2022, 12/27/2022, Additional history exists CKD PHOS USE SMARTSET 60031 12/28/202312/05, 12/20/2020, 12/11/2019 CKD HGB USE SMARTSET 05056 03/01/202403/01, 03/01/2023, 01/09/2023, Additional history exists DTap/Tdap Vaccines (2 - Td or Tdap) 05/21/2024 05/21/2014, 11/21/2000, 05/06/1992 COVID-19 Vaccine (2 - season) 2024 03/04/2024 Colonoscopy 01/02/2026 01/02/2023, 03/06, 03/15/2016, Additional history exists Pneumococcal Vaccine: 50+ Years Completed 01/27/2016, 04/25/2007 Influenza Vaccine (FLU shot) Completed , 03/04/2024, 03/01/2023, Additional history exists HPV (Gardasil) Vaccine Aged Out No lo nger eligible based on patient's age to complete this topic Hepatitis B Vaccine Aged Out No longe r eligible based on patient's age to complete this topic MENINGOCOCCAL (MENACTRA/MENVEO) Aged Out No longer eligible based on patient's age to complete this topic Meningitis B Vaccine (Bexsero/Trumemba) Aged Out No longer eligible based on patient's age to complete this topic documented as of this encounter Medical Devices Not on filedocumented as of this encounter Visit Diagnoses Diagnosis Gastrointestinal hemorrhage associated with gastric ulcer Other insomnia documented in this encounter Advance Directives Documents on File Type Date Recorded Patient Invasive Cardiovascular Technologist Expl anation Advance Directives and Living Will 07/20/2016 LIVING WILL DECLARAT ION - LIVING WILL Care Teams Orthopedics Nurse Relationship Specialty Start Date End Date Tarah Guallpa MD PCP - General 06/16/02 documented as of this encounter
--- OUTSIDE RECORDS SUMMARY | 2024-08-08 05:25 | External Medical Summary | Summary of Care ---
Author Name Unknown Organization [facility] Address [address] [place] [address] Phone [phone] Care Team Providers Care Pile Driver Name Role Phone Demarco Guallpa MD Primary Care Provider [phone] Reason for Visit * Reason Onset Date Comments Appointment 08/05/2024 Encounter Details Date Type Department Care Team (Late st Contact Info) Description 08/05/2024 Telephone [facility] [address] [facility] [place] [address] Demarco Guallpa MD [address] [facility] [place] [id number] Appointment Allergies Active Allergy Reactions Criticality Noted Date Comments Meclizine Hcl 12/29/2014 Throat swelling and tongue swelling Aspirin 03/05/2016 documented as of this encounter (statuses as of 08/07/2024) Medications ferrous sulfate (FEOSOL) 325 (65 FE) MG TabletIndications :Anemia, unspecified type Take 1 Tab by mouth daily. 90 Tab 1 01/27/20 16 Active cholecalciferol,V IT D3, (D--THERON) 400 UNIT/ML oral solutionIndicatio ns:Vitamin D deficiency Take 1 mL by mouth daily. 30 mL 11 08/10/19 17 Active Multiple Vitamins-Minerals (MENS MULTIVITAMIN PLUS) Tablet Take 1 Tab by mouth daily. 02/08/20 17 Active Acetaminophen 500 MG Oral Tablet Take 1-2 Tablets by mouth. 08/16/19 16 Active QC NATURAL VEGETABLE LAXATIVE 8.6 MG TabletIndications :Constipation, unspecified constipation type TAKE 1 TABLET BY MOUTH TWICE DAILY FOR CONSTIPATION 60 Tab 5 07/17/19 20 Active Additional Information Patient not taking.Reported on 06/04/2022 Nystatin [id number] UNIT/GM External Cream Apply 1 g topically to affected area in the morning and 1 g before bedtime. To affacted area for two weeks.. 60 g 2 12/28/19 23 Active LORazepam 1 MG Oral Tablet (Ativan) [...] 60 to 180 days 1 Each 1 03/01/20 23 Active Baclofen 10 MG Oral Tablet (Lioresal) TAKE 1 TABLET BY MOUTH IN THE MORNING AND BEFORE BEDTIME 180 Tablet 1 05/10/19 24 Active amLODIPine Besylate 5 MG Oral Tablet (Norvasc) Take 1 Tablet by mouth in the morning. 90 Tablet 3 07/29/19 24 Active Atorvastatin Calcium 20 MG Oral Tablet (Lipitor)Indicati ons:Hyperlipidemi a with target LDL less than 100 TAKE 1 TABLET EVERY DAY IN THE EVENING FOR HIGH CHOLESTEROL 90 Tablet 3 02/11/20 24 Active Atenolol 50 MG Oral Tablet (Tenormin)Indicat ions:HTN, goal below 150/90 TAKE 2 TABS BY MOUTH DAILY FOR BLOOD PRESSURE 60 Tablet 05/03/20 24 Active clonazePAM 1 MG Oral Tablet (KlonoPIN)Indicat ions:Insomnia TAKE 1 TABLET AT BEDTIME & 1/2 TABLET TWICE DAILY NEEDED 60 Tablet 07/18/19 25 Active LORazepam 1 MG Oral Tablet (Ativan)Indicatio ns:Panic disorder TAKE 1 TABLET BY MOUTH BEFORE TRAVEL. MAY REPEAT AFTER 30 MINUTES NEEDED 15 Tablet 07/18/19 25 Active Omeprazole 20 MG Oral Capsule Delayed Release (PriLOSEC)Indicat ions:Gastrointest inal hemorrhage associated with gastric ulcer TAKE ONE CAPSULE BY MOUTH EVERY DAY ONE HOUR BEFORE FIRST MEAL OF THE DAY 90 Capsule 07/21/19 25 Active traZODone HCl 50 MG Oral Tablet (Desyrel)Indicati ons:Other insomnia TAKE 1 TABLET BY MOUTH EVERYDAY AT BEDTIME 90 Tablet 07/21/19 25 Active tiZANidine HCl 4 MG Oral Capsule TAKE 1 CAPSULE BY MOUTH IN THE MORNING AND IN THE EVENING 60 Capsule 2 07/21/19 25 Active documented as of this encounter (statuses as of 08/07/2024) Active Problems Problem Noted Date Diagnosed Date [...] as of this encounter (statuses as of 08/07/2024) Resolved Problems Problem Noted Date Diagnosed Date Resolved Date Kidney disease, chronic, sta ge III (GFR 30-59 ml/min) 04/14/2018 03/17/2020 Overview: Per CKD protocol #1 ADVANCE DIRECTIVE INFORMATION 12/31/2005 03/09/2024 Overview (12/31/2005): No, Advance Directive brochure given to patient at prior appointment. PURE HYPERCHOLESTEROLEM 01/06/199804/05 Overview (04/14/2009): Per Lipid Taxonomy. ALCOHOL ABUSE-CONTINUOUS documented as of this encounter (statuses as of 08/07/2024) Immunizations Name Administration Dates Next Due COVID-19, MRNA-LNP, PF, 30 M CG/0.3 mL, 12 YRS AND ABOVE, IM (PFIZER-Comirnaty) 03/04/2024 Pneumococcal Conjugate Vacc, 13 Valent (Prevnar) 01/27/2016 Pneumococcal Polysaccharide PPV23 (Pneumovax) 04/25/2007 Seasonal Influenza Vac., MDV , IM, 0.5 mL (Fluzone) 02/19/2014,03/16/2013,03/18/2012,07/2010,02/21/2010,02/15/2009,03/29/20 08,03/12/2007 Seasonal Influenza, High Dos e, Trivalent, PF, IM (Fluzone HD) 03/04/2024 Seasonal Influenza, PF, 6 M & above, IM , (FluLaval or Fluzone) 01/26/2020,02/25/2019,02/12/2018,09/201602/07/2018 Seasonal Influenza, Quadriva lent Hd (Fluzone Hd) [...] 01/08/2023 Does the household have a re lar source of income? 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 08/07/2024 * Telephone Encounter - Carie Mccarthy OSA - 08/05/2024 9:16 AM EDT Pt returning call, gave Jeanne Torres's phone number -[phone], she works for [employer] help schedule appts for pt and provides transportation. Appt must be in morning, NOT Mondays or . Pt needs to schedule fasting labwork and 1 week later a yearly PCP return appt. Please leave detailed voicemail for Jeanne if she doesn't answer her phone. * Telephone Encounter - Aziza Banda OSA - 08/05/2024 9:09 AM EDT Patient calling that someone from transportation has called to schedule him an appointment but theynever called her back. He wants someone to call her back to get him scheduled since she is his transportation, her name is Jeanne Torres. He will be calling back with her phone number. documented in this encounter Plan of Treatment Upcoming Encounters Date Type Department Care Team (Late st Contact Info) Description 08/11/2024 8:45 AM EDT Office Visit Orthopaedics [facility] [address] [place] [phone] Shaista Mcintosh MD [address] [place] [address] 10/05/2024 8:20 AM EDT [facility] [address] [place] [phone] Demarco Guallpa MD [address] [place] [id number] Health Maintenance Due Date Last Done Comments Zoster Vaccines (1 of 2) 12/10/1991 Adult Wellness Visit 12/10/2007 Depression Screening 04/02/2019 04/02/2018 Albumin/Creatinine Ratio 12/10/2020 12/11/2019 GFR 08/31/2023 03/01/2023, 2023, 12/27/2022, Additional history exists CKD PHOS USE SMARTSET 60911 12/28/2023 0808/2022, 12/20/2020, 12/11/2019 CKD HGB USE SMARTSET 33376 03/01/202403/01, 03/01/2023, 01/09/2023, Additional history exists DTap/Tdap [...] Not on filedocumented as of this encounter Advance Directives Documents on File Type Date Recorded Patient Maintenance Supervisor 2Nd Shift Expl anation Advance Directives and Living Will 07/20/2016 LIVING WILL DECLARAT ION - LIVING WILL Care Teams Pile Driver Relationship Specialty Start Date End Date Demarco Guallpa MD PCP - General 06/16/02 documented as of this encounter
--- OUTSIDE RECORDS SUMMARY | 2024-08-08 05:25 | External Medical Summary | Summary of Care ---
Author Name Unknown Organization [facility] Address [address] [place] [address] Phone [phone] Care Team Providers Care Climbing Guide Name Role Phone Tarah Guallpa MD Primary Care Provider [phone] Reason for Visit * Reason Comments eRx-Medication Refill Encounter Details Date Type Department Care Team (Late st Contact Info) Description 07/15/2024 Refill General Internal Medicine [facility] [address] [place] [address] Tarah Guallpa MD [address] [place] [address] Insomnia; Panic disorder Allergies Active Allergy Reactions Criticality Noted Date Comments Meclizine Hcl 12/29/2014 Throat swelling and tongue swelling Aspirin 03/05/2016 documented as of this encounter (statuses as of 07/17/2024) Medications ferrous sulfate (FEOSOL) 325 (65 FE) [...] Information Patient not taking.Reported on 06/04/2022 Nystatin 525482 UNIT/GM External Cream Apply 1 g topically [...] the morning. 90 Tablet 3 024 Active tiZANidine HCl 4 MG Oral Capsule Take 1 Capsule by mouth in the morning and 1 Capsule in the evening. 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 MAY REPEAT AFTER 30 MINUTES NEEDED 15 Tablet 025 2024 Discontinued clonazePAM 1 MG Oral Tablet (KlonoPIN)Indica tions:Insomnia TAKE 1 TABLET AT BEDTIME & 1/2 TABLET TWICE DAILY NEEDED 60 Tablet 025 2024 Discontinued documented as of this encounter (statuses as of 07/17/2024) Active Problems Problem Noted Date Diagnosed Date [...] as of this encounter (statuses as of 07/17/2024) Resolved Problems Problem Noted Date Diagnosed Date Resolved Date Kidney disease, chronic, sta ge III (GFR 30-59 ml/min) 04/14/2018 03/17/2020 Overview: Per CKD protocol #1 ADVANCE DIRECTIVE INFORMATION 12/31/2005 03/09/2024 Overview (12/31/2005): No, Advance Directive brochure given to patient at prior appointment. PURE HYPERCHOLESTEROLEM 01/06/199804/05 Overview (04/14/2009): Per Lipid Taxonomy. 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 MAY REPEAT AFTER 30 MINUTES NEEDED Authorizing Provider: Lizette GUALLPA * [facility] 2[facility]55 PM EDT Pending Prescriptions: Disp Refills clonazePAM 1 MG Oral Tablet (KlonoPIN) 60 Tab*0 Sig: TAKE 1 TABLET AT BEDTIME & 1/2 TABLET TWICE DAILY NEEDED LORazepam 1 MG Oral Tablet (Ativan) 15 Tab*0 Sig: TAKE 1 TABLET BY MOUTH BEFORE TRAVEL. MAY REPEAT AFTER 30 MINUTES NEEDED * Telephone Encounter - Jocelyn Keller [facility] - 07/16/2024 2:53 PM EDT Patient advised OV needed in TE today I have reviewed the patient’s controlled substance dispensing history in the Prescription Drug Monitoring Program in compliance with the [facility] regulations before prescribing a controlled substance. PDMP checked on 07/16/2024. Pending Prescriptions: Disp Refills clonazePAM 1 MG Oral Tablet (KlonoPIN) [P*60 Tab*0 Sig: TAKE 1 TABLET AT BEDTIME & 1/2 TABLET TWICE DAILY NEEDED LORazepam 1 MG Oral Tablet (Ativan) [Phar*15 Tab*0 Sig: TAKE 1 TABLET BY MOUTH BEFORE TRAVEL. MAY REPEAT AFTER 30 MINUTES NEEDED Last Visit: Visit date not found (in office), Visit date not found (telemedicine) Next Visit: Visit date not found Date medication was last filled: 05/15/24 Date medication is due for refill: 06/13/24 Pharmacy: [id number] [id number] [facility] Is this request for a controlled substance? Yes and Urine Drug Screen Not completed Toxicology results: No results found for this or any previous visit. Please approve if appropriate. Thank You Toni MedeirosD Clinical Pharmacist [facility] ([facility]) [phone] / [phone] 07/16/2024, 2:54 PM documented in this encounter Plan of Treatment Upcoming Encounters Date Type Department Care Team (Late st Contact Info) Description 07/28/2024 9:00 AM EDT Office Visit Orthopaedics [facility] [address] [place] [phone] Shaista Mcintosh MD [address] [place] [phone] Health Maintenance Due Date Last Done Comments Zoster Vaccines (1 of 2) 12/10/1991 Adult Wellness Visit 12/10/2007 Depression Screening 04/02/2019 04/02/2018 Albumin/Creatinine Ratio 12/10/2020 12/11/2019 GFR 08/31/2023 03/01/2023, 09/0 10/2022, 12/27/2022, Additional history exists CKD PHOS USE SMARTSET 27202 12/28/202312/05, 12/20/2020, 12/11/2019 CKD HGB USE SMARTSET 49531 03/01/202403/01, 03/01/2023, 01/09/2023, Additional history exists DTap/Tdap Vaccines (2 - Td or Tdap) 05/21/2024 05/21/2014, 11/21/2000, 05/06/1992 COVID-19 Vaccine ( season) 2024 03/04/2024 Colonoscopy 01/02/2026 01/02/2023, 03/06, [...] as of this encounter Visit Diagnoses Diagnosis Insomnia Insomnia, unspecified Panic disorder Panic disorder without agoraphobia documented in this encounter Advance Directives Documents on File Type Date Recorded Patient News Correspondent Expl anation Advance Directives and Living Will 07/20/2016 LIVING WILL DECLARAT ION - LIVING WILL Care Teams Climbing Guide Relationship Specialty Start Date End Date Tarah Guallpa MD PCP - General 06/16/02 documented as of this encounter
--- OUTSIDE RECORDS SUMMARY | 2024-08-08 05:25 | External Medical Summary | Summary of Care ---
Author Name Unknown Organization [facility] Address [address] [facility] [address] Phone [phone] Care Team Providers Care Computer Forensics Analyst Name Role Phone Demarco Guallpa MD Primary Care Provider [phone] Reason for Visit * Reason Onset Date Comments Scheduling 08/05/2024 Encounter Details Date Type Department Care Team (Late st Contact Info) Description 08/05/2024 Telephone Orthopaedics [facility] [address] [place] [phone] Shaista Mcintosh MD [address] [place] [phone] Scheduling Allergies Active Allergy Reactions Criticality Noted Date Comments Meclizine Hcl 12/29/2014 Throat swelling and tongue swelling Aspirin 03/05/2016 documented as of this encounter (statuses as of 08/05/2024) Medications ferrous sulfate (FEOSOL) 325 (65 FE) [...] Information Patient not taking.Reported on 06/04/2022 Nystatin [id number] UNIT/GM External Cream Apply 1 g topically [...] as of this encounter (statuses as of 08/05/2024) Active Problems Problem Noted Date Diagnosed Date [...] as of this encounter (statuses as of 08/05/2024) Resolved Problems Problem Noted Date Diagnosed Date Resolved Date Kidney disease, chronic, sta ge III (GFR 30-59 ml/min) 04/14/2018 03/17/2020 Overview: Per CKD protocol #1 ADVANCE DIRECTIVE INFORMATION 12/31/2005 03/09/2024 Overview (12/31/2005): No, Advance Directive brochure given to patient at prior appointment. PURE HYPERCHOLESTEROLEM 01/06/199804/05 Overview (04/14/2009): Per Lipid Taxonomy. 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 Shaista Mcintosh that was on 07/28/24. Patient can not drive so he requested we reach out to Jeanne Torres who transports him to his appointments to schedule. Patient only requested that it NOT be on a Saturday or a . And if we could schedule the appointment in the morning. I made note in patients chart in regards to him allowing us to schedule with Jeanne and tried to call her. She did not answer, so I left a message for her to call us back. Jeanne Torres's documented in this encounter Plan of Treatment Health Maintenance Due Date Last Done Comments Zoster Vaccines (1 of 2) 12/10/1991 Adult Wellness Visit 12/10/2007 Depression Screening 04/02/2019 04/02/2018 Albumin/Creatinine Ratio 12/10/2020 12/11/2019 GFR 08/31/2023 03/01/2023, 10/2022, 12/27/2022, Additional history exists CKD PHOS USE SMARTSET 98538 12/28/202312/05, 12/20/2020, 12/11/2019 CKD HGB USE SMARTSET 78724 03/01/202403/01, 03/01/2023, 01/09/2023, Additional history exists DTap/Tdap [...] Documents on File Type Date Recorded Patient Senior Drafter Expl anation Advance Directives and Living Will 07/20/2016 LIVING WILL DECLARAT ION - LIVING WILL Care Teams Computer Forensics Analyst Relationship Specialty Start Date End Date Demarco Guallpa MD PCP - General 06/16/02 documented as of this encounter
--- OUTSIDE RECORDS SUMMARY | 2024-08-08 05:26 | External Medical Summary | Summary of Care ---
Author Name Unknown Organization [facility] Address [address] [place] [facility] [place] [address] Phone [phone] Care Team Providers Care Packaging Machine Supplies Distributor Name Role Phone Demarco Guallpa MD Primary Care Provider [phone] Encounter Details Date Type Department Care Team (Late st Contact Info) Description 05/28/2024 Population Health External Data Unspecified Department Allergies Active Allergy Reactions Criticality Noted Date Comments Meclizine Hcl 12/29/2014 Throat swelling and tongue swelling Aspirin 03/05/2016 documented as of this encounter (statuses as of 05/28/2024) Medications ferrous sulfate (FEOSOL) 325 (65 FE) [...] Information Patient not taking.Reported on 06/04/2022 Nystatin [id number] UNIT/GM External Cream Apply 1 g topically [...] morning. 90 Tablet 3 07/29/19 24 Active tiZANidine HCl 4 MG Oral Capsule Take 1 Capsule by mouth in the morning and 1 Capsule in the evening. 60 Capsule 5 12/30/19 24 Active Atorvastatin Calcium 20 MG Oral Tablet (Lipitor)Indicati ons:Hyperlipidemi a with target LDL less than 100 TAKE 1 TABLET EVERY DAY IN THE EVENING FOR HIGH CHOLESTEROL 90 Tablet 3 02/11/20 24 Active traZODone HCl 50 MG Oral Tablet (Desyrel)Indicati ons:Other insomnia TAKE 1 TABLET BY MOUTH EVERYDAY AT BEDTIME 90 Tablet 04/24/20 24 Active Omeprazole 20 MG Oral Capsule Delayed Release (PriLOSEC)Indicat ions:Gastrointest inal hemorrhage associated with gastric ulcer TAKE ONE CAPSULE BY MOUTH EVERY DAY ONE HOUR BEFORE FIRST MEAL OF THE DAY 90 Capsule 04/24/20 24 Active Atenolol 50 MG Oral Tablet (Tenormin)Indicat ions:HTN, goal below 150/90 TAKE 2 TABS BY MOUTH DAILY FOR BLOOD PRESSURE 60 Tablet 05/03/20 24 Active LORazepam 1 MG Oral Tablet (Ativan)Indicatio ns:Panic disorder TAKE 1 TABLET BY MOUTH BEFORE TRAVEL. MAY REPEAT AFTER 30 MINUTES NEEDED 15 Tablet 05/15/19 25 Active clonazePAM 1 MG Oral Tablet (KlonoPIN)Indicat ions:Insomnia TAKE 1 TABLET AT BEDTIME & 1/2 TABLET TWICE DAILY NEEDED 60 Tablet 05/15/19 25 Active documented as of this encounter (statuses as of 05/28/2024) Active Problems Problem Noted Date Diagnosed Date [...] as of this encounter (statuses as of 05/28/2024) Resolved Problems Problem Noted Date Diagnosed Date Resolved Date Kidney disease, chronic, sta ge III (GFR 30-59 ml/min) 04/14/2018 03/17/2020 Overview: Per CKD protocol #1 ADVANCE DIRECTIVE INFORMATION 12/31/2005 03/09/2024 Overview (12/31/2005): No, Advance Directive brochure given to patient at prior appointment. PURE HYPERCHOLESTEROLEM 01/06/199804/05 Overview (04/14/2009): Per Lipid Taxonomy. 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 Not on file Not on file Not on file documented as of this encounter Plan of Treatment Upcoming Encounters Date Type Department Care Team (Late st Contact Info) Description 07/28/2024 9:00 AM EDT Office Visit Orthopaedics [facility] [address] [place] [phone] Shaista Mcintosh MD [address] [place] [phone] Health Maintenance Due Date Last Done Comments Zoster Vaccines (1 of 2) 12/10/1991 Adult Wellness Visit 12/10/2007 Depression Screening 04/02/2019 04/02/2018 Albumin/Creatinine Ratio 12/10/2020 12/11/2019 GFR 08/31/2023 03/01/2023, 10/2022, 12/27/2022, Additional history exists CKD PHOS USE SMARTSET 73969 12/28/2023 08/2 08/2022, 12/20/2020, 12/11/2019 CKD HGB USE SMARTSET 36899 03/01/202403/01, 03/01/2023, 01/09/2023, Additional history exists DTap/Tdap Vaccines (2 - Td or Tdap) 05/21/2024 05/21/2014, 11/21/2000, 05/06/1992 Colonoscopy 01/02/2026 01/02/2023, 03/06, 03/15/2016, Additional history exists Pneumococcal Vaccine: 50+ Years Completed 01/27/2016, 04/25/2007 COVID-19 Vaccine Completed 03/04/2024 Influenza Vaccine (FLU shot) Completed , 03/04/2024, [...] Documents on File Type Date Recorded Patient Assembler Small Products Expl anation Advance Directives and Living Will 07/20/2016 LIVING WILL DECLARAT ION - LIVING WILL Care Teams Packaging Machine Supplies Distributor Relationship Specialty Start Date End Date Demarco Guallpa MD PCP - General 06/16/02 documented as of this encounter
--- OUTSIDE RECORDS SUMMARY | 2024-08-08 05:26 | External Medical Summary | Summary of Care ---
Author Name Unknown Organization [facility] Address [address] [place] [address] Phone [phone] Care Team Providers Care Data Sme Name Role Phone Tarah Guallpa MD Primary Care Provider [phone] Reason for Visit * Reason Comments eRx-Medication Refill Encounter Details Date Type Department Care Team (Late st Contact Info) Description 04/30/2024 Refill General Internal Medicine [facility] [address] [place] [address] Tarah Guallpa MD [address] [place] [address] HTN, goal below 150/90 Allergies Active Allergy Reactions Criticality Noted Date Comments Meclizine Hcl 12/29/2014 Throat swelling and tongue swelling Aspirin 03/05/2016 documented as of this encounter (statuses as of 05/14/2024) Medications ferrous sulfate (FEOSOL) 325 (65 FE) [...] Information Patient not taking.Reported on 06/04/2022 Nystatin [id number] UNIT/GM External Cream Apply 1 g topically [...] HIGH CHOLESTEROL 90 Tablet 3 024 Active clonazePAM 1 MG Oral Tablet (KlonoPIN)Indica tions:Insomnia TAKE 1 TABLET AT BEDTIME & 1/2 TABLET TWICE DAILY NEEDED 60 Tablet 024 Active LORazepam 1 MG Oral Tablet (Ativan)Indicati ons:Panic disorder TAKE 1 TABLET BY MOUTH BEFORE TRAVEL. MAY REPEAT AFTER 30 MINUTES NEEDED 15 Tablet 024 Active traZODone HCl 50 MG Oral Tablet (Desyrel)Indicat ions:Other insomnia TAKE 1 TABLET BY MOUTH EVERYDAY AT BEDTIME 90 Tablet 024 Active Omeprazole 20 MG Oral Capsule Delayed Release (PriLOSEC)Indica tions:Gastrointe stinal hemorrhage associated with gastric ulcer TAKE ONE CAPSULE BY MOUTH EVERY DAY ONE HOUR BEFORE FIRST MEAL OF THE DAY 90 Capsule Active Atenolol 50 MG Oral Tablet (Tenormin)Indica tions:HTN, goal below 150/90 TAKE 2 TABS BY MOUTH DAILY FOR BLOOD PRESSURE 60 Tablet 024 Active Atenolol 50 MG Oral Tablet (Tenormin)Indica tions:HTN, goal below 150/90 TAKE 2 TABS (=100MG) DAILY FOR BLOOD PRESSURE 180 Tablet 024 2023 Discontinued documented as of this encounter (statuses as of 05/14/2024) Active Problems Problem Noted Date Diagnosed Date [...] as of this encounter (statuses as of 05/14/2024) Resolved Problems Problem Noted Date Diagnosed Date Resolved Date Kidney disease, chronic, sta ge III (GFR 30-59 ml/min) 04/14/2018 03/17/2020 Overview: Per CKD protocol #1 ADVANCE DIRECTIVE INFORMATION 12/31/2005 03/09/2024 Overview (12/31/2005): No, Advance Directive brochure given to patient at prior appointment. PURE HYPERCHOLESTEROLEM 01/06/199804/05 Overview (04/14/2009): Per Lipid Taxonomy. ALCOHOL ABUSE-CONTINUOUS documented as of this encounter (statuses as of 05/14/2024) Immunizations Name Administration Dates Next Due COVID-19, MRNA-LNP, PF, 30 M CG/0.3 mL, 12 YRS AND ABOVE, IM (PFIZER-Comirnaty) 03/04/2024 Diptheria/Tetanus (Adult) 05/06/1992 Pneumococcal Conjugate Vacc, 13 Valent (Prevnar) 01/27/2016 Pneumococcal Polysaccharide PPV23 (Pneumovax) 04/25/2007 Seasonal Influenza Vac., MDV , IM, 0.5 mL (Fluzone) 02/19/2014,03/16/2013,03/18/2012,07/2010,02/21/2010,02/15/2009,03/29/20 08,03/12/2007,03/03/2002 Seasonal Influenza, High Dos e, Trivalent, PF, IM (Fluzone HD) 03/04/2024 Seasonal Influenza, PF, 6 M & above, IM , (FluLaval or Fluzone) 01/26/2020,02/25/2019,02/12/2018,1009/201602/07/2018 Seasonal Influenza, Quadriva lent Hd (Fluzone Hd) 03/01/2023,02/23/2022,03/15/2021 Seasonal Influenza, Quadriva lent, No Preserve, IM 01/27/2016,02/16/2015 TD - Tetanus/Diptheria (ADULT) 11/21/2000 TDAP (age 10 and older)(Boostrix) 05/21/2014 documented [...] Job 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 Stated today is a bad day, can you call back tomorrow? * Telephone Encounter - Tarah Guallpa MD - 05/03/2024 8:13 AM ESTSigned Prescriptions: Disp Refills Atenolol 50 MG Oral Tablet (Tenormin) 60 Tab*0 Sig: TAKE 2 TABS BY MOUTH DAILY FOR BLOOD PRESSUREAuthorizing Provider: TARAH GUALLPA * Telephone Encounter - Tarah Guallpa MD - 05/03/2024 8:11 AM EST Notify Pt: he needs a routine office visit to review clinical status. He will only get one month santos time for his meds until he is seen in office. * Telephone Encounter - Jeanne Rivera [facility] - 05/02/2024 12:42 PM ESTPending Prescriptions: Disp Refills Atenolol 50 MG Oral Tablet [Pharmacy Med N*180 Ta*0 Sig: TAKE 2 TABS BY MOUTH DAILY FOR BLOOD PRESSURE * Telephone Encounter - Jeanne Rivera [facility] - 05/02/2024 12:41 PM EST Unable to authorize medication refills at this time. Part of the criteria used for refill authorization was not satisfied. Patient needs current well office visit and labs. Notified multiple times previously. Please approve if appropriate. Pending Prescriptions: Disp Refills Atenolol 50 MG Oral Tablet (Tenormin) [Ph*180 Ta*0 Sig: TAKE 2 TABS BY MOUTH DAILY FOR BLOOD PRESSURE Last Visit: Visit date not found (in office), Visit date not found (telemedicine) Next Visit: Visit date not found If no future appointments scheduled, and last appointment is greater than a year ago, please schedule patient for a follow-up appointment Last date the medication was ordered: 02/14/24 Pharmacy: [id number] [address] [facility] Is this request for a controlled substance? No Urine Drug Screen:No results found for this or any previous visit. Patient Phone Numbers Labs: Lab Results Component Value Date/Time CREAT 1.1 03/01/2023 08:41 AM CREAT 1.4 (H) 12/11/2019 02:28 PM CREAT 0.9 03/24/1996 11:15 AM POTASSIUM 4.4 03/01/2023 08:41 AM POTASSIUM 4.8 12/11/2019 02:28 PM POTASSIUM 4.4 03/24/1996 11:15 AM TSH 1.86 12/27/2022 10:41 AM TSH 1.03 09/17/2006 01:32 PM LDL 70 12/20/2020 11:05 AM LDL 71 12/11/2019 02:28 PM LDL 63 04/02/2018 01:47 PM ALT 18 03/01/2023 08:41 AM ALT 21 12/11/2019 02:28 PM Jeanne Finn Clinical Pharmacist [facility] ([facility]) [phone] 05/02/2024, 12:42 PM documented in this encounter Plan of Treatment Upcoming Encounters Date Type Department Care Team (Late st Contact Info) Description 07/28/2024 9:00 AM EDT Office Visit Orthopaedics [facility] [address] [place] [phone] Shaista Mcintosh MD [address] [place] [address] Health Maintenance Due Date Last Done Comments Zoster Vaccines (1 of 2) 12/10/1991 Adult Wellness Visit 12/10/2007 Depression Screening 04/02/2019 04/02/2018 Albumin/Creatinine Ratio 12/10/2020 12/11/2019 GFR 08/31/2023 03/01/2023, 10/2022, 12/27/2022, Additional history exists CKD PHOS USE SMARTSET 91032 12/28/202312/05, 12/20/2020, 12/11/2019 CKD HGB USE SMARTSET 49554 03/01/202403/01, 03/01/2023, 01/09/2023, Additional history exists DTap/Tdap [...] as of this encounter Visit Diagnoses Diagnosis HTN, goal below 150/90 documented in this encounter Advance Directives Documents on File Type Date Recorded Patient Local Bulk Driver Expl anation Advance Directives and Living Will 07/20/2016 LIVING WILL DECLARAT ION - LIVING WILL Care Teams Data Sme Relationship Specialty Start Date End Date Tarah Guallpa MD PCP - General 06/16/02 documented as of this encounter
--- OUTSIDE RECORDS SUMMARY | 2024-08-08 05:26 | External Medical Summary | Summary of Care ---
Author Name Unknown Organization [facility] Address [address] [place] [address] Phone [phone] Care Team Providers Care Machine Maintenance Repairer Name Role Phone Tarah Guallpa MD Primary Care Provider [phone] Reason for Visit * Reason Comments eRx-Medication Refill Encounter Details Date Type Department Care Team (Late st Contact Info) Description 04/30/2024 Refill General Internal Medicine [facility] [address] [place] [address] Tarah Guallpa MD [address] [place] [address] HTN, goal below 150/90 Allergies Active Allergy [...] Information Patient not taking.Reported on 06/04/2022 Nystatin [id number] UNIT/GM External Cream Apply 1 g topically [...] 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 05/14/2024 * Telephone Encounter - Bela Lau LPN [...] office. * Telephone Encounter - Jeanne Rivera [facility] - 05/02/2024 12:42 PM ESTPending Prescriptions: Disp Refills Atenolol 50 MG Oral Tablet [Pharmacy Med N*180 Ta*0 Sig: TAKE 2 TABS BY MOUTH DAILY FOR BLOOD PRESSURE * Telephone Encounter - Jeanne Rivera RPh - 05/02/2024 12:41 PM EST Unable to [...] the medication was ordered: 02/14/24 Pharmacy: [id number] [address] [facility] Is [...] Clinical Pharmacist Centralized Clinical Pharmacy Services (CCPS) [phone] 05/02/2024, 12:42 PM documented in this encounter Plan of Treatment Upcoming Encounters Date Type Department Care Team (Late st Contact Info) Description 07/28/2024 9:00 AM EDT Office Visit Orthopaedics [facility] [address] [place] [id number] Shaista Mcintosh MD [address] [place] [address] Health Maintenance Due Date Last Done Comments Zoster Vaccines (1 of 2) 12/10/1991 Adult Wellness Visit 12/10/2007 Depression Screening 04/02/2019 04/02/2018 Albumin/Creatinine Ratio 12/10/2020 12/11/2019 GFR 08/31/2023 03/01/2023, 0910/2022, 12/27/2022, Additional history exists CKD PHOS USE SMARTSET 98259 12/28/20232 08/2022, 12/20/2020, 12/11/2019 CKD HGB USE SMARTSET 70616 03/01/202403/01, 03/01/2023, 01/09/2023, Additional history exists DTap/Tdap [...] Documents on File Type Date Recorded Patient Federal Aid Coordinator Expl anation Advance Directives and Living Will 07/20/2016 LIVING WILL DECLARAT ION - LIVING WILL Care Teams Machine Maintenance Repairer Relationship Specialty Start Date End Date Tarah Guallpa MD PCP - General 06/16/02 documented as of this encounter
--- OUTSIDE RECORDS SUMMARY | 2024-08-08 05:26 | External Medical Summary | Summary of Care ---
Author Name Unknown Organization [facility] Address [address] [place] [address] Phone [phone] Care Team Providers Care Clinical Molecular Geneticist Name Role Phone Tarah Guallpa MD Primary Care Provider [phone] Reason for Visit * Reason Comments eRx-Medication Refill Encounter Details Date Type Department Care Team (Late st Contact Info) Description 03/12/2024 Refill [facility] [address] [place] [address] Tarah Guallpa MD [address] [place] [address] Insomnia; Panic disorder Allergies Active Allergy Reactions Criticality Noted Date Comments Meclizine Hcl 12/29/2014 Throat swelling and tongue swelling Aspirin 03/05/2016 documented as of this encounter (statuses as of 03/13/2024) Medications ferrous sulfate (FEOSOL) 325 (65 FE) [...] Information Patient not taking.Reported on 06/04/2022 Nystatin [id number] UNIT/GM External Cream Apply 1 g topically [...] the morning. 90 Tablet 3 024 Active traZODone HCl 50 MG Oral Tablet (Desyrel)Indicat ions:Other insomnia TAKE 1 TABLET BY MOUTH EVERYDAY AT BEDTIME 90 Tablet 1 024 Active tiZANidine HCl 4 MG Oral Capsule Take 1 Capsule by mouth in the morning and 1 Capsule in the evening. 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 MAY REPEAT AFTER 30 MINUTES NEEDED 15 Tablet 024 Active LORazepam 1 MG Oral Tablet (Ativan)Indicati ons:Panic disorder TAKE 1 TABLET BY MOUTH BEFORE TRAVEL. MAY REPEAT AFTER 30 MINUTES NEEDED 15 Tablet 024 2023 Discontinued clonazePAM 1 MG Oral Tablet (KlonoPIN)Indica tions:Insomnia TAKE 1 TABLET AT BEDTIME & 1/2 TABLET TWICE DAILY NEEDED 60 Tablet 024 2023 Discontinued documented as of this encounter (statuses as of 03/13/2024) Active Problems Problem Noted Date Diagnosed Date [...] as of this encounter (statuses as of 03/13/2024) Resolved Problems Problem Noted Date Diagnosed Date Resolved Date Kidney disease, chronic, sta ge III (GFR 30-59 ml/min) 04/14/2018 03/17/2020 Overview: Per CKD protocol #1 ADVANCE DIRECTIVE INFORMATION 12/31/2005 03/09/2024 Overview (12/31/2005): No, Advance Directive brochure given to patient at prior appointment. PURE HYPERCHOLESTEROLEM 01/06/199804/05 Overview (04/14/2009): Per Lipid Taxonomy. 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 MAY REPEAT AFTER 30 MINUTES NEEDED Authorizing Provider: Lizette GUALLPA * Telephone Encounter - Nahomy Berger [facility] - 03/13/2024 12:33 PM EST Pending Prescriptions: Disp Refills clonazePAM 1 MG Oral Tablet [Pharmacy Med *60 Tab*0 Sig: TAKE 1 TABLET AT BEDTIME & 1/2 TABLET TWICE DAILY NEEDED LORazepam 1 MG Oral Tablet [Pharmacy Med N*15 Tab*0 Sig: TAKE 1 TABLET BY MOUTH BEFORE TRAVEL. MAY REPEAT AFTER 30 MINUTES NEEDED * Telephone Encounter - Nahomy Berger [facility] - 03/13/2024 12:31 PM EST I have reviewed the patient’s controlled substance dispensing history in the Prescription Drug Monitoring Program in compliance with the [facility] regulations before prescribing a controlled substance. PDMP checked on 03/13/2024. Pending Prescriptions: Disp Refills clonazePAM 1 MG Oral Tablet (KlonoPIN) [P*60 Tab*0 Sig: TAKE 1 TABLET AT BEDTIME & 1/2 TABLET TWICE DAILY NEEDED LORazepam 1 MG Oral Tablet (Ativan) [Phar*15 Tab*0 Sig: TAKE 1 TABLET BY MOUTH BEFORE TRAVEL. MAY REPEAT AFTER 30 MINUTES NEEDED Last Visit: 03/01/2023 (in office), Visit date not found (telemedicine) Next Visit: Visit date not found Date medication was last filled: clonazepam 01/04/24, lorazepam 10/25/23 Date medication is due for refill: clonazepam 02/03/24, lorazepam 11/10/23 Pharmacy: [id number] [address] [facility] Is this request for a controlled substance? Yes and Urine Drug Screen Not completed Toxicology results: No results found for this or any previous visit. Please approve if appropriate. Thanks, Nahomy Berger [facility] Clinical Pharmacist Centralized Clinical Pharmacy Services (CCPS) [phone] documented in this encounter Plan of Treatment Upcoming Encounters Date Type Department Care Team (Late st Contact Info) Description 07/28/2024 9:00 AM EDT Office Visit Orthopaedics [facility] [address] [place] [address] Shaista Mcintosh MD [address] [place] [address] Health Maintenance Due Date Last Done Comments Zoster Vaccines (1 of 2) 12/10/1991 Adult Wellness Visit 12/10/2007 Depression Screening 04/02/2019 04/02/2018 Albumin/Creatinine Ratio 12/10/2020 12/11/2019 GFR 08/31/2023 03/01/2023, 0910/2022, 12/27/2022, Additional history exists CKD PHOS USE SMARTSET 94013 12/28/202312/05, 12/20/2020, 12/11/2019 CKD HGB USE SMARTSET 55957 03/01/202403/01, 03/01/2023, 01/09/2023, Additional history exists DTap/Tdap Vaccines (2 - Td or Tdap) 05/21/2024 05/21/2014, 11/21/2000, 05/06/1992 Colonoscopy 01/02/2026 01/02/2023, 03/06, 03/15/2016, Additional history exists Pneumococcal Vaccine: 65+ Years Completed 01/27/2016, 04/25/2007 COVID-19 Vaccine Completed 03/04/2024 Influenza Vaccine (FLU shot) Completed , 03/01/2023, 02/23/2022, Additional history exists HPV (Gardasil) Vaccine Aged [...] Documents on File Type Date Recorded Patient Fire Investigation Manager Expl anation Advance Directives and Living Will 07/20/2016 LIVING WILL DECLARAT ION - LIVING WILL Care Teams Clinical Molecular Geneticist Relationship Specialty Start Date End Date Tarah Guallpa MD [address] [place] [address] PCP - General 06/16/02 documented as of this encounter
--- OUTSIDE RECORDS SUMMARY | 2024-08-08 05:26 | External Medical Summary | Summary of Care ---
Author Name Unknown Organization [facility] Address [address] [place] [address] Phone [phone] Care Team Providers Care Business Assistant Name Role Phone Tarah Guallpa MD Primary Care Provider [phone] Reason for Visit * Reason Comments eRx-Medication Refill Encounter Details Date Type Department Care Team (Late st Contact Info) Description 04/30/2024 Refill General Internal Medicine [facility] [address] [place] [address] Tarah Guallpa MD [address] [place] [address] HTN, goal below 150/90 Allergies Active Allergy Reactions Criticality Noted Date Comments Meclizine Hcl 12/29/2014 Throat swelling and tongue swelling Aspirin 03/05/2016 documented as of this encounter (statuses as of 05/04/2024) Medications ferrous sulfate (FEOSOL) 325 (65 FE) [...] Information Patient not taking.Reported on 06/04/2022 Nystatin [id number] UNIT/GM External Cream Apply 1 g topically [...] as of this encounter (statuses as of 05/04/2024) Active Problems Problem Noted Date Diagnosed Date [...] as of this encounter (statuses as of 05/04/2024) Resolved Problems Problem Noted Date Diagnosed Date Resolved Date Kidney disease, chronic, sta ge III (GFR 30-59 ml/min) 04/14/2018 03/17/2020 Overview: Per CKD protocol #1 ADVANCE DIRECTIVE INFORMATION 12/31/2005 03/09/2024 Overview (12/31/2005): No, Advance Directive brochure given to patient at prior appointment. PURE HYPERCHOLESTEROLEM 01/06/199804/05 Overview (04/14/2009): Per Lipid Taxonomy. 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 * Telephone Encounter - Jeanne Rivera [facility] - 05/02/2024 12:42 PM ESTPending Prescriptions: Disp Refills Atenolol 50 MG Oral Tablet [Pharmacy Med N*180 Ta*0 Sig: TAKE 2 TABS BY MOUTH DAILY FOR BLOOD PRESSURE * Telephone Encounter - Jeanne Rivera [facility] - 05/02/2024 12:41 PM EST Unable to [...] the medication was ordered: 02/14/24 Pharmacy: [id number] [address] [facility] Is this request for a controlled substance? [...] Clinical Pharmacist Centralized Clinical Pharmacy Services (CCPS) [phone] 05/02/2024, 12:42 PM documented in this encounter Plan of Treatment Upcoming Encounters Date Type Department Care Team (Late st Contact Info) Description 07/28/2024 9:00 AM EDT Office Visit Orthopaedics [address] [place] [address] Shaista Mcintosh MD [address] [place] [address] Health Maintenance Due Date Last Done Comments Zoster Vaccines (1 of 2) 12/10/1991 Adult Wellness Visit 12/10/2007 Depression Screening 04/02/2019 04/02/2018 Albumin/Creatinine Ratio 12/10/2020 12/11/2019 GFR 08/31/2023 03/01/2023, 0910/2022, 12/27/2022, Additional history exists CKD PHOS USE SMARTSET 09190 12/28/202312/05, 12/20/2020, 12/11/2019 CKD HGB USE SMARTSET 56359 03/01/202403/01, 03/01/2023, 01/09/2023, Additional history exists DTap/Tdap [...] Documents on File Type Date Recorded Patient Netbackup Administrator Expl anation Advance Directives and Living Will 07/20/2016 LIVING WILL DECLARAT ION - LIVING WILL Care Teams Business Assistant Relationship Specialty Start Date End Date Tarah Guallpa MD PCP - General 06/16/02 documented as of this encounter
--- OUTSIDE RECORDS SUMMARY | 2024-08-08 05:26 | External Medical Summary | Summary of Care ---
Author Name Unknown Organization [facility] Address [address] [facility] [place] [address] Phone [phone] Care Team Providers Care Wreath And Garland Maker Name Role Phone Demarco Guallpa MD Primary Care Provider Reason for Visit * Reason Onset Date Comments Health Maintenance 07/16/2024 Encounter Details Date Type Department Care Team (Late st Contact Info) Description 07/16/2024 Telephone [facility] [address] [facility] [place] [address] Demarco Guallpa MD [address] [facility] [place] [id number] Health Maintenance Allergies Active Allergy Reactions Criticality Noted Date Comments Meclizine Hcl 12/29/2014 Throat swelling and tongue swelling Aspirin 03/05/2016 documented as of this encounter (statuses as of 07/16/2024) Medications ferrous sulfate (FEOSOL) 325 (65 FE) [...] Information Patient not taking.Reported on 06/04/2022 Nystatin 521009 UNIT/GM External Cream Apply 1 g topically [...] as of this encounter (statuses as of 07/16/2024) Active Problems Problem Noted Date Diagnosed Date [...] as of this encounter (statuses as of 07/16/2024) Resolved Problems Problem Noted Date Diagnosed Date Resolved Date Kidney disease, chronic, sta ge III (GFR 30-59 ml/min) 04/14/2018 03/17/2020 Overview: Per CKD protocol #1 ADVANCE DIRECTIVE INFORMATION 12/31/2005 03/09/2024 Overview (12/31/2005): No, Advance Directive brochure given to patient at prior appointment. PURE HYPERCHOLESTEROLEM 01/06/199804/05 Overview (04/14/2009): Per Lipid Taxonomy. 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 Not on file documented as of this encounter Miscellaneous Notes * Telephone Encounter - Patricia TANMAY Banda - 07/16/2024 10:39 AM EDT Care Gaps Comprehensive Care Outreach Last Office/Telemedicine Visit: Visit date not found (in office), Visit date not found (telemedicine) Next Office Visit: Visit date not found Hemoglobin AIC Results: No results found for: "HEMOGLOBIN A1C" BP Readings from Last 1 Encounters: 03/01/23 140/72 Reviewed Health Maintenance below: Health Maintenance Topic Date Due Zoster Vaccines (1 of 2) Never done Adult Wellness Visit Never done Depression Screening 04/02/2019 Albumin/Creatinine Ratio 12/10/2020 GFR 08/31/2023 CKD PHOS USE SMARTSET 19707 12/28/2023 CKD HGB USE SMARTSET 00712 03/01/2024 DTap/Tdap Vaccines (2 - Td or Tdap) 05/21/2024 Ov he will call transportation that he used to schedule for august Labs ordered Care Gap Outreach Action Taken: Spoke to patient documented in this encounter Plan of Treatment Upcoming Encounters Date Type Department Care Team (Late st Contact Info) Description 07/28/2024 9:00 AM EDT Office Visit Orthopaedics [facility] [address] [place] [address] Shaista Mcintosh MD [address] [place] [address] Scheduled Orders Name Type Priority Associated Diagnoses Orde r Schedule COMPREHENSIVE METABOLIC PANEL Lab Routine Chronic kidney disease, unspecified CKD stage Expected: 07/16/2024, Expires: 07/16/2025 PHOSPHORUS Lab Routine Chronic kidney disease, unspecified CKD stage Expected: 07/16/2024, Expires: 07/16/2025 CBC Lab Routine Chronic kidney disease, unspecified CKD stage Expected: 07/16/2024, Expires: 07/16/2025 Health Maintenance Due Date Last Done Comments Zoster Vaccines (1 of 2) 12/10/1991 Adult Wellness Visit 12/10/2007 Depression Screening 04/02/2019 04/02/2018 Albumin/Creatinine Ratio 12/10/2020 12/11/2019 GFR 08/31/2023 03/01/2023, 10/2022, 12/27/2022, Additional history exists CKD PHOS USE SMARTSET 48865 12/28/202312/05, 12/20/2020, 12/11/2019 CKD HGB USE SMARTSET 66354 03/01/202403/01, 03/01/2023, 01/09/2023, Additional history exists DTap/Tdap Vaccines (2 - Td or Tdap) 05/21/2024 05/21/2014, 11/21/2000, 05/06/1992 COVID-19 Vaccine (2 - 2023- season) 2024 03/04/2024 Colonoscopy 01/02/2026 01/02/2023, 03/06, [...] as of this encounter Visit Diagnoses Diagnosis Chronic kidney disease, unspecified CKD stage- Primary documented in this encounter Advance Directives Documents on File Type Date Recorded Patient Housekeeping Room Inspector Expl anation Advance Directives and Living Will 07/20/2016 LIVING WILL DECLARAT ION - LIVING WILL Care Teams Wreath And Garland Maker Relationship Specialty Start Date End Date Demarco Guallpa MD PCP - General 06/16/02 documented as of this encounter
--- OUTSIDE RECORDS SUMMARY | 2024-08-08 05:26 | External Medical Summary | Summary of Care ---
Author Name Unknown Organization [facility] Address [address] [place] [address] Phone [phone] Care Team Providers Care Lower School Music Teacher Name Role Phone Tarah Guallpa MD Primary Care Provider [phone] Reason for Visit * Reason Comments eRx-Medication Refill Encounter Details Date Type Department Care Team (Late st Contact Info) Description 04/30/2024 Refill General Internal Medicine [facility] [address] [place] [address] Tarah Guallpa MD [address] [place] [address] HTN, goal below 150/90 Allergies Active Allergy Reactions Criticality Noted Date Comments Meclizine Hcl 12/29/2014 Throat swelling and tongue swelling Aspirin 03/05/2016 documented as of this encounter (statuses as of 05/03/2024) Medications ferrous sulfate (FEOSOL) 325 (65 FE) [...] Information Patient not taking.Reported on 06/04/2022 Nystatin 468843 UNIT/GM External Cream Apply 1 g topically [...] as of this encounter (statuses as of 05/03/2024) Active Problems Problem Noted Date Diagnosed Date [...] as of this encounter (statuses as of 05/03/2024) Resolved Problems Problem Noted Date Diagnosed Date Resolved Date Kidney disease, chronic, sta ge III (GFR 30-59 ml/min) 04/14/2018 03/17/2020 Overview: Per CKD protocol #1 ADVANCE DIRECTIVE INFORMATION 12/31/2005 03/09/2024 Overview (12/31/2005): No, Advance Directive brochure given to patient at prior appointment. PURE HYPERCHOLESTEROLEM 01/06/199804/05 Overview (04/14/2009): Per Lipid Taxonomy. 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 * Telephone Encounter - Jeanne Rivera [facility] - 05/02/2024 12:42 PM ESTPending Prescriptions: Disp Refills Atenolol 50 MG Oral Tablet [Pharmacy Med N*180 Ta*0 Sig: TAKE 2 TABS BY MOUTH DAILY FOR BLOOD PRESSURE * Telephone Encounter - Jeanne Rivera [facility] - 05/02/2024 12:41 PM EST Unable [...] the medication was ordered: 02/14/24 Pharmacy: [id number] [address] [facility] Is this request for a controlled [...] Clinical Pharmacist Centralized Clinical Pharmacy Services (CCPS) [phone] 05/02/2024, 12:42 PM documented in this encounter Plan of Treatment Upcoming Encounters Date Type Department Care Team (Late st Contact Info) Description 07/28/2024 9:00 AM EDT Office Visit Orthopaedics [facility] [address] [place] [address] Shaista Mcintosh MD [address] [place] [address] Health Maintenance Due Date Last Done Comments Zoster Vaccines (1 of 2) 12/10/1991 Adult Wellness Visit 12/10/2007 Depression Screening 04/02/2019 04/02/2018 Albumin/Creatinine Ratio 12/10/2020 12/11/2019 GFR 08/31/2023 03/01/2023, 10/2022, 12/27/2022, Additional history exists CKD PHOS USE SMARTSET 55368 12/28/202312/05, 12/20/2020, 12/11/2019 CKD HGB USE SMARTSET 80462 03/01/202403/01, 03/01/2023, 01/09/2023, Additional history exists DTap/Tdap [...] Documents on File Type Date Recorded Patient Proposal Lead Writer Expl anation Advance Directives and Living Will 07/20/2016 LIVING WILL DECLARAT ION - LIVING WILL Care Teams Lower School Music Teacher Relationship Specialty Start Date End Date Tarah Guallpa MD PCP - General 06/16/02 documented as of this encounter
--- OUTSIDE RECORDS SUMMARY | 2024-08-08 05:26 | External Medical Summary | Summary of Care ---
Author Name Unknown Organization [facility] Address [address] [place] [address] Phone [phone] Care Team Providers Care Trauma Therapist Name Role Phone Tarah Guallpa MD Primary Care Provider [phone] Reason for Visit * Reason Comments eRx-Medication Refill Encounter Details Date Type Department Care Team (Late st Contact Info) Description 05/14/2024 Refill General Internal Medicine [facility] [address] [place] [address] Tarah Guallpa MD [address] [place] [address] Panic disorder; Insomnia Allergies Active Allergy Reactions Criticality Noted Date Comments Meclizine Hcl 12/29/2014 Throat swelling and tongue swelling Aspirin 03/05/2016 documented as of this encounter (statuses as of 05/15/2024) Medications ferrous sulfate (FEOSOL) 325 (65 FE) [...] Information Patient not taking.Reported on 06/04/2022 Nystatin 294014 UNIT/GM External Cream Apply 1 g topically [...] FOR BLOOD PRESSURE 60 Tablet 024 Active LORazepam 1 MG Oral Tablet (Ativan)Indicati ons:Panic disorder TAKE 1 TABLET BY MOUTH BEFORE TRAVEL. MAY REPEAT AFTER 30 MINUTES NEEDED 15 Tablet 025 Active clonazePAM 1 MG Oral Tablet (KlonoPIN)Indica tions:Insomnia TAKE 1 TABLET AT BEDTIME & 1/2 TABLET TWICE DAILY NEEDED 60 Tablet 025 Active clonazePAM 1 MG Oral Tablet (KlonoPIN)Indica tions:Insomnia TAKE 1 TABLET AT BEDTIME & 1/2 TABLET TWICE DAILY NEEDED 60 Tablet 024 2024 Discontinued LORazepam 1 MG Oral Tablet (Ativan)Indicati ons:Panic disorder TAKE 1 TABLET BY MOUTH BEFORE TRAVEL. MAY REPEAT AFTER 30 MINUTES NEEDED 15 Tablet 024 2024 Discontinued documented as of this encounter (statuses as of 05/15/2024) Active Problems Problem Noted Date Diagnosed Date [...] as of this encounter (statuses as of 05/15/2024) Resolved Problems Problem Noted Date Diagnosed Date Resolved Date Kidney disease, chronic, sta ge III (GFR 30-59 ml/min) 04/14/2018 03/17/2020 Overview: Per CKD protocol #1 ADVANCE DIRECTIVE INFORMATION 12/31/2005 03/09/2024 Overview (12/31/2005): No, Advance Directive brochure given to patient at prior appointment. PURE HYPERCHOLESTEROLEM 01/06/199804/05 Overview (04/14/2009): Per Lipid Taxonomy. 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 MAY REPEAT AFTER 30 MINUTES NEEDED Authorizing Provider: TARAH GUALLPA clonazePAM 1 MG Oral Tablet (KlonoPIN) 60 Tab*0 Sig: TAKE 1 TABLET AT BEDTIME & 1/2 TABLET TWICE DAILY NEEDED Authorizing Provider: Lizette GUALLPA * Telephone Encounter - Taylor Munson, [facility] - 05/14/2024 7:24 PM ESTPending Prescriptions: Disp Refills LORazepam 1 MG Oral Tablet [Pharmacy Med N*15 Tab*0 Sig: TAKE 1 TABLET BY MOUTH BEFORE TRAVEL. MAY REPEAT AFTER 30 MINUTES NEEDED clonazePAM 1 MG Oral Tablet [Pharmacy Med *60 Tab*0 Sig: TAKE 1 TABLET AT BEDTIME & 1/2 TABLET TWICE DAILY NEEDED * Telephone Encounter - Taylor Munson, [facility] - 05/14/2024 7:23 PM EST See 04/30/24 regarding appointment - patient waiting for transportation. I have reviewed the patient’s controlled substance dispensing history in the Prescription Drug Monitoring Program in compliance with the [facility] regulations before prescribing a controlled substance. PDMP checked on 05/14/2024. Pending Prescriptions: Disp Refills LORazepam 1 MG Oral Tablet (Ativan) [Phar*15 Tab*0 Sig: TAKE 1 TABLET BY MOUTH BEFORE TRAVEL. MAY REPEAT AFTER 30 MINUTES NEEDED clonazePAM 1 MG Oral Tablet (KlonoPIN) [P*60 Tab*0 Sig: TAKE 1 TABLET AT BEDTIME & 1/2 TABLET TWICE DAILY NEEDED Last Visit: Visit date not found (in office), Visit date not found (telemedicine) Next Visit: Visit date not found Date medication was last filled: 03/13/24 Date medication is due for refill: 04/01/24-clonazepam; 03/20/24- lorazepam Pharmacy: [id number] [address] [facility] Is this request for a controlled substance? Yes and Urine Drug Screen was completed Toxicology results: No results found for this or any previous visit. Please approve if appropriate. Thank you, Taylor Munson, PharmD Clinical Pharmacist [facility] ([facility]) 05/14/24 7:23 PM [phone] documented in this encounter Plan of Treatment Upcoming Encounters Date Type Department Care Team (Late st Contact Info) Description 07/28/2024 9:00 AM EDT Office Visit Orthopaedics [facility] [address] [place] [id number] Shaista Mcintosh MD [address] [place] [address] Health Maintenance Due Date Last Done Comments Zoster Vaccines (1 of 2) 12/10/1991 Adult Wellness Visit 12/10/2007 Depression Screening 04/02/2019 04/02/2018 Albumin/Creatinine Ratio 12/10/2020 12/11/2019 GFR 08/31/2023 03/01/2023, 0910/2022, 12/27/2022, Additional history exists CKD PHOS USE SMARTSET 68369 12/28/202312/05, 12/20/2020, 12/11/2019 CKD HGB USE SMARTSET 59516 03/01/202403/01, 03/01/2023, 01/09/2023, Additional history exists DTap/Tdap [...] as of this encounter Visit Diagnoses Diagnosis Panic disorder Panic disorder without agoraphobia Insomnia Insomnia, unspecified documented in this encounter Advance Directives Documents on File Type Date Recorded Patient Custom Bike Builder Expl anation Advance Directives and Living Will 07/20/2016 LIVING WILL DECLARAT ION - LIVING WILL Care Teams Trauma Therapist Relationship Specialty Start Date End Date Tarah Guallpa MD PCP - General 06/16/02 documented as of this encounter
--- OUTSIDE RECORDS SUMMARY | 2024-08-08 05:26 | External Medical Summary | Summary of Care ---
Author Name Unknown Organization [facility] Address [address] [place] [address] Phone [phone] Care Team Providers Care Diet Consultant Name Role Phone Demarco Guallpa MD Primary Care Provider [phone] Reason for Visit * Reason Onset Date Comments Medication Administration 03/04/2024 Flu an d/or Pneumo Inj Encounter Details Date Type Department Care Team (Late st Contact Info) Description 03/04/2024 1:00 PM EDT Immunization Ancillary Department, [place] [address] [place] [address] [place] [address] [place] [address] Need for prophylactic vaccination and inoculation against influenza* Allergies Active Allergy Reactions Criticality Noted Date Comments Meclizine Hcl 12/29/2014 Throat swelling and tongue swelling Aspirin 03/05/2016 documented as of this encounter (statuses as of 03/04/2024) Medications Medication Sig Dispensed Refills Start Date End Date Status ferrous sulfate (FEOSOL) 325 (65 FE) MG TabletIndications:A nemia, unspecified type Take 1 Tab by mouth daily. 90 Tab 1 01/27/2016 Active cholecalciferol,VIT D3, (D--THERON) 400 UNIT/ML oral solutionIndications :Vitamin D deficiency Take 1 mL by mouth daily. 30 mL 11 08/09/2016 Active Multiple Vitamins-Minerals (MENS MULTIVITAMIN PLUS) Tablet Take 1 Tab by mouth daily. 02/07/2017 Active Acetaminophen 500 MG Oral Tablet Take 1-2 Tablets by mouth. 08/16/2015 Active QC NATURAL VEGETABLE LAXATIVE 8.6 MG TabletIndications:C onstipation, unspecified constipation type TAKE 1 TABLET BY MOUTH TWICE DAILY FOR CONSTIPATION 60 Tab 5 07/17/2019 Active Additional Information Patient not taking.Reported on 06/04/2022 Nystatin 187630 UNIT/GM External Cream Apply 1 g topically to affected area in the morning and 1 g before bedtime. To affacted area for two weeks.. 60 g 2 12/27/2022 Active LORazepam 1 MG Oral Tablet (Ativan) [...] 60 to 180 days 1 Each 1 03/01/2023 Active Baclofen 10 MG Oral Tablet (Lioresal) TAKE 1 TABLET BY MOUTH IN THE MORNING AND BEFORE BEDTIME 180 Tablet 1 05/10/2023 Active amLODIPine Besylate 5 MG Oral Tablet (Norvasc) Take 1 Tablet by mouth in the morning. 90 Tablet 3 07/29/2023 Active LORazepam 1 MG Oral Tablet (Ativan)Indications :Panic disorder TAKE 1 TABLET BY MOUTH BEFORE TRAVEL. MAY REPEAT AFTER 30 MINUTES NEEDED 15 Tablet 10/25/2023 Active traZODone HCl 50 MG Oral Tablet (Desyrel)Indication s:Other insomnia TAKE 1 TABLET BY MOUTH EVERYDAY AT BEDTIME 90 Tablet 1 10/25/2023 Active tiZANidine HCl 4 MG Oral Capsule Take 1 Capsule by mouth in the morning and 1 Capsule in the evening. 60 Capsule 5 12/30/2023 Active clonazePAM 1 MG Oral Tablet (KlonoPIN)Samirtio ns:Insomnia TAKE 1 TABLET AT BEDTIME & 1/2 TABLET TWICE DAILY NEEDED 60 Tablet 01/04/2024 Active Atorvastatin Calcium 20 MG Oral Tablet (Lipitor)Indication s:Hyperlipidemia with target LDL less than 100 TAKE 1 TABLET EVERY DAY IN THE EVENING FOR HIGH CHOLESTEROL 90 Tablet 3 02/11/2024 Active Omeprazole 20 MG Oral Capsule Delayed Release (PriLOSEC)Indicatio ns:Gastrointestinal hemorrhage associated with gastric ulcer TAKE ONE CAPSULE BY MOUTH EVERY DAY ONE HOUR BEFORE FIRST MEAL OF THE DAY 90 Capsule 02/14/2024 Active Atenolol 50 MG Oral Tablet (Tenormin)Indicatio ns:HTN, goal below 150/90 TAKE 2 TABS (=100MG) DAILY FOR BLOOD PRESSURE 180 Tablet 02/14/2024 Active documented as of this encounter (statuses as of 03/04/2024) Active Problems Problem Noted Date Diagnosed Date History of alcohol abuse 03/01/2023 Presence of urostomy 08/13/2022 Stage 3a chronic kidney disease 03/14/2020 Overview: Per CKD protocol Tobacco use disorder 10/05/2016 Hyperlipidemia with target LDL less than 100 09/2012 Overview: ICD-10 update of inactive term Macular degeneration 09/13/2009 Impotence of organic origin 08/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 Anxiety state 02/16/2004 PROPHYLACTIC MEASURE NEC 02/16/2004 BENIGN NEOPLASM LG BOWEL tubular adenoma HTN, goal below 150/90 documented as of this encounter (statuses as of 03/04/2024) Resolved Problems Problem Noted Date Diagnosed Date Resolved Date Kidney disease, chronic, sta ge III (GFR 30-59 ml/min) 04/14/2018 03/17/2020 Overview: Per CKD protocol #1 PURE HYPERCHOLESTEROLEM 01/06/199804/05 Overview: Per Lipid Taxonomy. ALCOHOL ABUSE-CONTINUOUS documented as of this encounter (statuses as of 03/04/2024) Immunizations Name Administration Dates Next Due COVID-19, MRNA-LNP, 24-25, P R, 30MCG/0.3ML, IM, 12YRS AND ABOVE (Pfizer-Comirnaty) 03/04/2024 Diptheria/Tetanus (Adult) 05/06/1992 Pneumococcal Conjugate Vacc, [...] on file Are you (or your family) ulz eless or worried that you might be [...] Recorded Sex Assigned at Not on file Gender Identity Not on file Sexual Orientation Not on file Job Start Date Occupation Industry Not on file Not on file Not on file documented as of this encounter Last Filed Vital Signs Vital Sign Reading Time Taken Comments Blood Pressure - - Pulse - - Temperature - - Respiratory Rate - - Oxygen Saturation - - Inhaled Oxygen Concentration - - Weight 89.7 kg (197 lb 12.8 oz) 12:00 PM EDT Height 177.8 cm (5' 10") 03/04/2024 12: 00 PM EDT Body Mass Index 28.38 03/04/2024 12:00 PM EDT documented in this encounter Progress Notes * Damaso Patel LPN - 03/04/2024 11:52 AM EDT PRE - ADMINISTRATION DOCUMENTATION Are you experiencing any cold symptoms or fever? No Have you had Guillain-[place] Syndrome (an illness that causes paralysis) within the last 6 weeks? No Have you had the flu shot in the past? YES Have you ever had a reaction to the flu shot? No Damaso Patel LPN, 03/04/2024 11:51 AM documented in this encounter Miscellaneous Notes * Addendum Note - Damaso Patel LPN - 03/04/2024 12:03 PM EDTAddended by: DAMASO PATEL on: 03/04/2024 12:03 PM Modules accepted: Orders documented in this encounter Plan of Treatment Upcoming Encounters Date Type Department Care Team (Late st Contact Info) Description 07/28/2024 9:00 AM EDT Office Visit Orthopaedics [facility] [address] [place] [address] Shaista Mcintosh MD [address] [place] [address] Health Maintenance Due Date Last Done Comments Zoster Vaccines (1 of 2) 12/10/1991 Adult Wellness Visit 12/10/2007 Depression Screening 04/02/2019 04/02/2018 Albumin/Creatinine Ratio 12/10/2020 12/11/2019 GFR 08/31/2023 03/01/2023, 0910/2022, 12/27/2022, Additional history exists CKD PHOS USE SMARTSET 69904 12/28/2023 0808/2022, 12/20/2020, 12/11/2019 CKD HGB USE SMARTSET 51708 03/01/202403/01, 03/01/2023, 01/09/2023, Additional history exists DTap/Tdap [...] as of this encounter Visit Diagnoses Diagnosis Need for prophylactic vaccination and inoculation against influenza- Primary documented in this encounter Advance Directives Documents on File Type Date Recorded 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
--- OUTSIDE RECORDS SUMMARY | 2024-08-08 05:26 | External Medical Summary | Summary of Care ---
Author Name Unknown Organization [facility] Address [address] [place] [address] Phone [phone] Care Team Providers Care Dairy Technician Name Role Phone Tarah Guallpa MD Primary Care Provider [phone] Reason for Visit * Reason Comments eRx-Medication Refill Encounter Details Date Type Department Care Team (Late st Contact Info) Description 04/23/[address] [facility] DEPT CLOSED - 04/23/24 [address] [place] [address] Tarah Guallpa MD [address] [place] [address] Other insomnia; Gastrointestinal hemorrhage associated with gastric ulcer Allergies Active Allergy Reactions Criticality Noted Date Comments Meclizine Hcl 12/29/2014 Throat swelling and tongue swelling Aspirin 03/05/2016 documented as of this encounter (statuses as of 04/27/2024) Medications ferrous sulfate (FEOSOL) 325 (65 FE) [...] Information Patient not taking.Reported on 06/04/2022 Nystatin 843007 UNIT/GM External Cream Apply 1 g topically [...] REPEAT AFTER 30 MINUTES NEEDED 15 Tablet 11/08/2 024 Active traZODone HCl 50 MG Oral Tablet (Desyrel)Indicat ions:Other insomnia TAKE 1 TABLET BY MOUTH EVERYDAY AT BEDTIME 90 Tablet Active Omeprazole 20 MG Oral Capsule Delayed Release (PriLOSEC)Indica tions:Gastrointe stinal hemorrhage associated with gastric ulcer TAKE ONE CAPSULE BY MOUTH EVERY DAY ONE HOUR BEFORE FIRST MEAL OF THE DAY 90 Capsule Active traZODone HCl 50 MG Oral Tablet (Desyrel)Indicat ions:Other insomnia TAKE 1 TABLET BY MOUTH EVERYDAY AT BEDTIME 90 Tablet 1 024 2023 Discontinued Omeprazole 20 MG Oral Capsule Delayed Release (PriLOSEC)Indica tions:Gastrointe stinal hemorrhage associated with gastric ulcer TAKE ONE CAPSULE BY MOUTH EVERY DAY ONE HOUR BEFORE FIRST MEAL OF THE DAY 90 Capsule 024 2023 Discontinued documented as of this encounter (statuses as of 04/27/2024) Active Problems Problem Noted Date Diagnosed Date [...] as of this encounter (statuses as of 04/27/2024) Resolved Problems Problem Noted Date Diagnosed Date Resolved Date Kidney disease, chronic, sta ge III (GFR 30-59 ml/min) 04/14/2018 03/17/2020 Overview: Per CKD protocol #1 ADVANCE DIRECTIVE INFORMATION 12/31/2005 03/09/2024 Overview (12/31/2005): No, Advance Directive brochure given to patient at prior appointment. PURE HYPERCHOLESTEROLEM 01/06/199804/05 Overview (04/14/2009): Per Lipid Taxonomy. 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 Patient was notified. Successfully contacted patient and provided [facility] message. * Telephone Encounter - Cierra Aguayo RPh - 04/24/2024 1:24 PM ESTSigned Prescriptions: Disp Refills traZODone HCl 50 MG Oral Tablet (Desyrel) 90 Tab*0 Sig: TAKE 1 TABLET BY MOUTH EVERYDAY AT BEDTIME Authorizing Provider: TARAH GUALLPA Ordering User: CIERRA AGUAYO Omeprazole 20 MG Oral Capsule Delayed Rele*90 Cap*0 Sig: TAKE ONE CAPSULE BY MOUTH EVERY DAY ONE HOUR BEFORE FIRST MEAL OF THE DAY Authorizing Provider: TARAH GUALLPA Ordering User: CIERRA AGUAYO * Telephone Encounter - Cierra Aguayo [facility] - 04/24/2024 1:22 PM EST 3rd attempt Provided 90 days supply with 0 refill. Per refill protocol patient should have routine labs on filewithin past year. Reviewed AMP report, Care Gaps/Health Maintenance, medications list, and for any routine labs typically ordered for this patient. Lab orders placed. Please contact patient to schedule office visit with PRIMARY CARE and advise of labs ordered for blood draw AND URINE specimen (patient will have to be able to void to provide sample). Recommend patient to fast if able for labs. Patient may still have water and regular medications. Advise to obtainlabs before requesting the next refill. Last Visit: 03/01/2023 (in office), Visit date not found (telemedicine) Next Visit: Visit date not found Cierra Finn PharmD Clinical Pharmacist [facility] ([facility]) [phone] 04/24/2024, 1:24 PM documented in this encounter Plan of Treatment Upcoming Encounters Date Type Department Care Team (Late st Contact Info) Description 07/28/2024 9:00 AM EDT Office Visit Orthopaedics [facility] [address] [place] [address] Shaista Mcintosh MD [address] [place] [address] Health Maintenance Due Date Last Done Comments Zoster Vaccines (1 of 2) 12/10/1991 Adult Wellness Visit 12/10/2007 Depression Screening 04/02/2019 04/02/2018 Albumin/Creatinine Ratio 12/10/2020 12/11/2019 GFR 08/31/2023 03/01/2023, 0910/2022, 12/27/2022, Additional history exists CKD PHOS USE SMARTSET 81004 12/28/2023 08/2 08/2022, 12/20/2020, 12/11/2019 CKD HGB USE SMARTSET 48930 03/01/202403/01, 03/01/2023, 01/09/2023, Additional history exists DTap/Tdap [...] as of this encounter Visit Diagnoses Diagnosis Other insomnia Gastrointestinal hemorrhage associated with gastric ulcer documented in this encounter Advance Directives Documents on File Type Date Recorded 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
--- OUTSIDE RECORDS SUMMARY | 2024-08-08 05:27 | External Medical Summary | Summary of Care ---
Author Name Unknown Organization [facility] Address [address] [place] [address] Phone [phone] Care Team Providers Care Grain Scooper Name Role Phone Demarco Guallpa MD Primary Care Provider [phone] Reason for Visit * Reason Onset Date Comments Medication Administration 03/04/2024 Flu an d/or Pneumo Inj Encounter Details Date Type Department Care Team (Late st Contact Info) Description 03/04/2024 1:00 PM EDT Immunization Ancillary Department, [place] [address] [place] [address] [place] [address] [place] [address] Need for prophylactic vaccination and inoculation against [...] Information Patient not taking.Reported on 06/04/2022 Nystatin 040030 UNIT/GM External Cream Apply 1 g topically [...] symptoms or fever? No Have you had Guillain-[place] Syndrome (an illness that causes paralysis) within [...] 07/28/2024 9:00 AM EDT Office Visit Orthopaedics [facility] [address] [address] Shaista Mcintosh MD [address] [place] [address] Health Maintenance Due Date Last Done Comments Zoster Vaccines (1 of 2) 12/10/1991 Adult Wellness Visit 12/10/2007 Depression Screening 04/02/2019 04/02/2018 Albumin/Creatinine Ratio 12/10/2020 12/11/2019 GFR 08/31/2023 03/01/2023, 0910/2022, 12/27/2022, Additional history exists CKD PHOS USE SMARTSET 28909 12/28/2023 0808/2022, 12/20/2020, 12/11/2019 CKD HGB USE SMARTSET 05751 03/01/202403/01, 03/01/2023, 01/09/2023, Additional history exists DTap/Tdap [...] Documents on File Type Date Recorded Patient Printmaker Expl 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
--- OUTSIDE RECORDS SUMMARY | 2024-08-08 05:27 | External Medical Summary | Summary of Care ---
Author Name Unknown Organization [facility] Address [address] [place] [address] Phone [phone] Care Team Providers Care Clinical Staff Educator Name Role Phone Tarah Guallpa MD Primary Care Provider [phone] Reason for Visit * Reason Comments eRx-Medication Refill Encounter Details Date Type Department Care Team (Late st Contact Info) Description 02/13/2024 Refill [facility] [address] [place] [address] Tarah Guallpa MD [address] [place] [address] Gastrointestinal hemorrhage associated with gastric ulcer; HTN, goal below 150/90 Allergies Active Allergy Reactions Criticality Noted Date Comments Meclizine Hcl 12/29/2014 Throat swelling and tongue swelling Aspirin 03/05/2016 documented as of this encounter (statuses as of 02/17/2024) Medications Medication Sig Dispensed Refills Start Date End Date Status ferrous sulfate (FEOSOL) 325 (65 FE) MG TabletIndications: Anemia, unspecified type Take 1 Tab by mouth daily. 90 Tab 1 6 Active cholecalciferol, T D3, (D--THERON) 400 UNIT/ML oral solutionIndication s:Vitamin D deficiency Take 1 mL by mouth daily. 30 mL 11 7 Active Multiple Vitamins-Minerals (MENS MULTIVITAMIN PLUS) Tablet Take 1 Tab by mouth daily. 7 Active Acetaminophen 500 MG Oral Tablet Take 1-2 Tablets by mouth. 6 Active QC NATURAL VEGETABLE LAXATIVE 8.6 MG TabletIndications: Constipation, unspecified constipation type TAKE 1 TABLET BY MOUTH TWICE DAILY FOR CONSTIPATION 60 Tab 5 0 Active Additional Information Patient not taking.Reported on 06/04/2022 Nystatin [id number] UNIT/GM External Cream Apply 1 g topically to affected area in the morning and 1 g before bedtime. To affacted area for two weeks.. 60 g 2 3 Active LORazepam 1 MG Oral Tablet (Ativan) [...] 60 to 180 days 1 Each 1 3 Active Baclofen 10 MG Oral Tablet (Lioresal) TAKE 1 TABLET BY MOUTH IN THE MORNING AND BEFORE BEDTIME 180 Tablet 1 4 Active amLODIPine Besylate 5 MG Oral Tablet (Norvasc) Take 1 Tablet by mouth in the morning. 90 Tablet 3 4 Active LORazepam 1 MG Oral Tablet (Ativan)Indication s:Panic disorder TAKE 1 TABLET BY MOUTH BEFORE TRAVEL. MAY REPEAT AFTER 30 MINUTES NEEDED 15 Tablet 4 Active traZODone HCl 50 MG Oral Tablet (Desyrel)Indicatio ns:Other insomnia TAKE 1 TABLET BY MOUTH EVERYDAY AT BEDTIME 90 Tablet 1 4 Active tiZANidine HCl 4 MG Oral Capsule Take 1 Capsule by mouth in the morning and 1 Capsule in the evening. 60 Capsule 5 4 Active clonazePAM 1 MG Oral Tablet (KlonoPIN)Indicati ons:Insomnia TAKE 1 TABLET AT BEDTIME & 1/2 TABLET TWICE DAILY NEEDED 60 Tablet 4 Active Atorvastatin Calcium 20 MG Oral Tablet (Lipitor)Indicatio ns:Hyperlipidemia with target LDL less than 100 TAKE 1 TABLET EVERY DAY IN THE EVENING FOR HIGH CHOLESTEROL 90 Tablet 3 4 Active Omeprazole 20 MG Oral Capsule Delayed Release (PriLOSEC)Indicati ons:Gastrointestin al hemorrhage associated with gastric ulcer TAKE ONE CAPSULE BY MOUTH EVERY DAY ONE HOUR BEFORE FIRST MEAL OF THE DAY 90 Capsule 4 Active Atenolol 50 MG Oral Tablet (Tenormin)Indicati ons:HTN, goal below 150/90 TAKE 2 TABS (=100MG) DAILY FOR BLOOD PRESSURE 180 Tablet 4 Active Omeprazole 20 MG Oral Capsule Delayed Release (PriLOSEC)Indicati ons:Gastrointestin al hemorrhage associated with gastric ulcer TAKE ONE CAPSULE BY MOUTH EVERY DAY ONE HOUR BEFORE FIRST MEAL OF THE DAY 90 Capsule 3 3 02/14/20 24 Discontinued Atenolol 50 MG Oral Tablet (Tenormin)Indicati ons:HTN, goal below 150/90 TAKE 2 TABS (=100MG) DAILY FOR BLOOD PRESSURE 180 Tablet 3 3 02/14/20 24 Discontinued documented as of this encounter (statuses as of 02/17/2024) Active Problems Problem Noted Date Diagnosed Date [...] as of this encounter (statuses as of 02/17/2024) Resolved Problems Problem Noted Date Diagnosed Date Resolved Date Kidney disease, chronic, sta ge III (GFR 30-59 ml/min) 04/14/2018 03/17/2020 Overview: Per CKD protocol #1 PURE HYPERCHOLESTEROLEM 01/06/199804/05 Overview: Per Lipid Taxonomy. ALCOHOL ABUSE-CONTINUOUS documented as of this encounter (statuses as of 02/17/2024) Immunizations Name Administration Dates Next Due Pneumococcal Conjugate Vacc, 13 Valent (Prevnar) 01/27/2016 Pneumococcal Polysaccharide PPV23 (Pneumovax) 04/25/2007 Seasonal Influenza Vac., MDV , IM, 0.5 mL (Fluzone) 02/19/2014,03/16/2013,03/18/2012,100 07/2010,02/21/2010,02/15/2009,03/29/20 08,03/12/2007 Seasonal Influenza, PF, 6 M & above, [...] = 0.6 oz pure alcohol) As of 2..2006, the last noted alcohol intake was 18 [...] No 01/08/2023 Does the household have a [facility] source of income? (Household - for ages [...] * Telephone Encounter - Celeste Bloom - 02/17/2024 7:37 PM EDT Received message from [facility] regarding patient needing an appointment. Patient was notified. Successfully contacted patient and provided [facility] message. * Telephone Encounter - Venus Barlow [facility] - 02/14/2024 7:23 AM EDTSigned Prescriptions: Disp Refills Omeprazole 20 MG Oral Capsule Delayed Rele*90 Cap*0 Sig: TAKE ONE CAPSULE BY MOUTH EVERY DAY ONE HOUR BEFORE FIRST MEAL OF THE DAY Authorizing Provider: TARAH GUALLPA Ordering User: VENUS BARLOW Atenolol 50 MG Oral Tablet (Tenormin) 180 Ta*0 Sig: TAKE 2 TABS (=100MG) DAILY FOR BLOOD PRESSURE Authorizing Provider: TARAH SALAS Ordering User: VENUS BARLOW * Telephone Encounter - Venus Barlow RPh - 02/14/2024 7:22 AM EDT Please contact patient so that an appointment can be scheduled with his PRIMARY CARE provider. Refill authorized to hold patient over in the mean time. Last Visit: 03/01/2023 (in office), Visit date not found (telemedicine) Next Visit: Visit date not found Venus Barlow RPh, Pharm.D., CACP Clinical Pharmacist [facility] 02/14/2024, 7:22 AM documented in this encounter Plan of Treatment Upcoming Encounters Date Type Department Care Team (Late st Contact Info) Description 07/28/2024 9:00 AM EDT Office Visit Orthopaedics [facility] [address] [address] Shaista Mcintosh MD [address] [address] Health Maintenance Due Date Last Done Comments Zoster Vaccines (1 of 2) 12/10/1991 Adult Wellness Visit 12/10/2007 Depression Screening 04/02/2019 04/02/2018 Albumin/Creatinine Ratio 12/10/2020 12/11/2019 GFR 08/31/2023 03/01/2023, 09/0 10/2022, 12/27/2022, Additional history exists CKD PHOS USE SMARTSET 88260 12/28/2023 08/2 08/2022, 12/20/2020, 12/11/2019 COVID-19 Vaccine ( season) 2024 Influenza Vaccine (FLU shot) (#1) 2024 03/01/2023, 02/23/2022, 03/15/2021, Additional history exists CKD HGB USE SMARTSET 25443 03/01/202403/01, 03/01/2023, 01/09/2023, Additional history exists DTap/Tdap Vaccines (2 - Td or Tdap) 05/21/2024 05/21/2014, 11/21/2000, 05/06/1992 Colonoscopy 01/02/2026 01/02/2023, 03/06, 03/15/2016, Additional history exists Pneumococcal Vaccine: 65+ Years Completed 01/27/2016, 04/25/2007 HPV (Gardasil) Vaccine Aged Out No lo [...] Diagnosis Gastrointestinal hemorrhage associated with gastric ulcer HTN, goal below 150/90 documented in this encounter Advance Directives Documents on File Type Date Recorded 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
--- OUTSIDE RECORDS SUMMARY | 2024-08-08 05:27 | External Medical Summary | Summary of Care ---
Author Name Unknown Organization [facility] Address [address] [place] [address] Phone [phone] Care Team Providers Care It Administrator Name Role Phone Tarah Guallpa MD Primary Care Provider [phone] Reason for Visit * Reason Comments eRx-Medication Refill Encounter Details Date Type Department Care Team (Late st Contact Info) Description 02/07/2024 Refill [facility] [address] [place] [address] Tarah Guallpa MD [address] [place] [address] Encounter for long-term (current) use of medications*; Hyperlipidemia with target LDL less than 100 Allergies Active Allergy Reactions Criticality Noted Date Comments Meclizine Hcl 12/29/2014 Throat swelling and tongue swelling Aspirin 03/05/2016 documented as of this encounter (statuses as of 02/11/2024) Medications Medication Sig Dispensed Refills Start Date [...] Oral Tablet Take 1-2 Tablets by mouth. 04/12/201 6 Active QC NATURAL VEGETABLE LAXATIVE 8.6 MG TabletIndications: Constipation, unspecified constipation type TAKE 1 TABLET BY MOUTH TWICE DAILY FOR CONSTIPATION 60 Tab 5 0 Active Additional Information Patient not taking.Reported on 06/04/2022 Nystatin [id number] UNIT/GM External Cream Apply 1 g topically [...] in the morning. For 5 days. Active Omeprazole 20 MG Oral Capsule Delayed Release (PriLOSEC)Indicati ons:Gastrointestin al hemorrhage associated with gastric ulcer TAKE ONE CAPSULE BY MOUTH EVERY DAY ONE HOUR BEFORE FIRST MEAL OF THE DAY 90 Capsule 3 3 Active Atenolol 50 MG Oral Tablet (Tenormin)Indicati ons:HTN, goal below 150/90 TAKE 2 TABS (=100MG) DAILY FOR BLOOD PRESSURE 180 Tablet 3 3 Active Zoster Vac Recomb Adjuvanted 50 MCG/0.5ML [...] HIGH CHOLESTEROL 90 Tablet 3 4 Active Atorvastatin Calcium 20 MG Oral Tablet (Lipitor)Indicatio ns:Hyperlipidemia with target LDL less than 100 TAKE 1 TABLET EVERY DAY IN THE EVENING FOR HIGH CHOLESTEROL 90 Tablet 3 3 02/11/20 24 Discontinued documented as of this encounter (statuses as of 02/11/2024) Active Problems Problem Noted Date Diagnosed Date [...] as of this encounter (statuses as of 02/11/2024) Resolved Problems Problem Noted Date Diagnosed Date Resolved Date Kidney disease, chronic, sta ge III (GFR 30-59 ml/min) 04/14/2018 03/17/2020 Overview: Per CKD protocol #1 PURE HYPERCHOLESTEROLEM 01/06/199804/05 Overview: Per Lipid Taxonomy. ALCOHOL ABUSE-CONTINUOUS documented as of this encounter (statuses as of 02/11/2024) Immunizations Name Administration Dates Next Due Pneumococcal Conjugate Vacc, 13 Valent (Prevnar) 01/27/2016 Pneumococcal Polysaccharide PPV23 (Pneumovax) 04/25/2007 Seasonal Influenza Vac., MDV , IM, 0.5 mL (Fluzone) 02/19/2014,03/16/2013,03/18/2012,07/2010,02/21/2010,02/15/2009,03/29/20 08,03/12/2007 Seasonal Influenza, PF, 6 M & [...] No 01/08/2023 Does the household have a [facility] source [facility] income? (Household - for [...] Telephone Encounter - Tarah Guallpa MD - 02/11/2024 1:05 PM EDTSigned Prescriptions: Disp Refills Atorvastatin Calcium 20 MG Oral Tablet (Li*90 Tab*3 Sig: TAKE 1 TABLET EVERY DAY IN THE EVENING FOR HIGH CHOLESTEROLAuthorizing Provider: TARAH GUALLPA * Telephone Encounter - Adrianna Coulter CPhT - 02/11/2024 12:17 PM EDTPending Prescriptions: Disp Refills Atorvastatin Calcium 20 MG Oral Tablet (Li*90 Tab*0 Sig: TAKE 1 TABLET EVERY DAY IN THE EVENING FOR HIGH CHOLESTEROL * Telephone Encounter - Adrianna Coulter CPhT - 02/11/2024 12:15 PM EDT Received message from [facility] regarding patient needing an appointment and labs. Call Placed, Unable toreach pt, as there was no answer and no VM available to leave message. Letter created and sent to patient. Thank you, Adrianna Coulter CPhT [employer] [facility] 02/11/2024,12:15 PM * Telephone Encounter - Hui Dias [facility] - 02/10/2024 11:13 AM EDTPending Prescriptions: Disp Refills Atorvastatin Calcium 20 MG Oral Tablet (Li*90 Tab*0 Sig: TAKE 1 TABLET EVERY DAY IN THE EVENING FOR HIGH CHOLESTEROL * Telephone Encounter - Hui Dias [facility] - 02/10/2024 11:10 AM EDT Unable to authorize medication refills for pended medication(s) at this time. Part of the protocol criteria used for refill authorization was not satisfied. Per refill protocol patient should have routine exam and labs on file within past year. Reviewed AMP report, Care Gaps/Health Maintenance, medications list, and for any routine labs typically orderedfor this patient. Lab orders placed. Please contact patient to schedule office visit with PRIMARY CARE and advise of labs ordered for blood draw AND URINE specimen (patient will have to be able to void to provide sample).. Recommend patient to fast if able for labs. Patient may still have water and regular medications. Advise to obtain labs before his scheduled office visit Visit date not found. Last Visit: 03/01/2023 (in office), Visit date not found (telemedicine) Next Visit: Visit date not found After contacting patient, please forward request to Tarah Guallpa MD. Thank You, Hui Dias [facility] Clinical Pharmacist [facility] [phone] 02/10/2024, 11:13 AM documented in this encounter Plan of Treatment Upcoming Encounters Date Type Department Care Team (Late st Contact Info) Description 07/28/2024 9:00 AM EDT Office Visit Orthopaedics [facility] [address] [address] Shaista Mcintosh MD [address] [place] [address] Scheduled Orders Name Type Priority Associated Diagnoses Orde r Schedule HGB Lab Routine Encounter for long-term (current) use of medications Expected: 02/10/2024 (Approximate), Expires: 02/09/2025 LDL CHOLESTEROL (DIRECT MEASURE) Lab Routine Encounter for long-term (current) use of medications Expected: 02/10/2024 (Approximate), Expires: 02/09/2025 Health Maintenance Due Date Last Done Comments Zoster Vaccines (1 of 2) 12/10/1991 Adult Wellness Visit 12/10/2007 Depression Screening 04/02/2019 04/02/2018 Albumin/Creatinine Ratio 12/10/2020 12/11/2019 GFR 08/31/2023 03/01/2023, 10/2022, 12/27/2022, Additional history exists CKD PHOS USE SMARTSET 23817 12/28/202312/05, 12/20/2020, 12/11/2019 COVID-19 Vaccine ( season) 2024 Influenza Vaccine (FLU shot) (#1) 2024 03/01/2023, 02/23/2022, 03/15/2021, Additional history exists CKD HGB USE SMARTSET 51197 03/01/202403/01, 03/01/2023, 01/09/2023, Additional history exists DTap/Tdap [...] as of this encounter Visit Diagnoses Diagnosis Encounter for long-term (current) use of medications- Primary Encounter for long-term (current) use of other medications Hyperlipidemia with target LDL less than 100 Other and unspecified hyperlipidemia documented in this encounter Advance Directives Documents on File Type Date Recorded 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
[2024-08-08 06:00] LABS: Basophils # (auto) 0.06 K/uL (0.00-0.20); Basophils % (auto) 0.5 %; Eosinophils % (auto) 0.8 %; Hematocrit (blood only) 39.5 % (42.0-52.0); Hemoglobin 13.9 g/dl (14.0-18.0); Immature Granulocytes # (auto) 0.12 K/uL (0.01-0.20); Immature Granulocytes % (auto) 0.9 %; Lymphocytes # (auto) 1.45 K/uL (1.20-3.40); Lymphocytes % (auto) 11.2 %; Mean Corpuscular Hemoglobin 33.8 pg (25.0-34.0); Mean Corpuscular Hgb Conc 35.2 g/dL (32.0-36.0); Mean Corpuscular Volume 96.1 fL (80.0-100.0); Mean Platelet Volume 8.8 fL (9.4-12.4); Monocytes # (auto) 1.29 K/uL (0.11-0.59); Monocytes % (auto) 9.9 %; Neutrophils # (auto) 9.98 K/uL (1.40-6.50); Neutrophils % (auto) 76.7 %; Platelet Count 241 K/uL (130-400); RDW Coefficient of Variation 12.1 % (11.5-14.5); RDW Standard Deviation 42.6 fL (36.4-46.3); Red Blood Count 4.11 M/uL (4.70-6.10)
[2024-08-08 06:12] LABS: BUN Creatinine Ratio 10.8 (10-20); Calcium 8.6 mg/dl (8.6-10.3); Creatinine Clr Calc Pharmacy 65.1 ml/min; Potassium 4.9 mmol/L (3.5-5.1)
[2024-08-08] MEDS: PANTOprazole 40 MG TAB PO SCH (06:15)
[2024-08-08] MEDS: ATENOLOL 50 MG TABLET PO SCH (09:45)
[2024-08-08] MEDS: amLODIPine BESYLATE 5 MG TAB PO SCH (09:45)
[2024-08-08] MEDS: cefTRIAXone SODIUM 2,000 MG/50 ML BAG IV SCH (09:45)
[2024-08-08] MEDS: MULTIVITAMIN TAB PO SCH (09:46)
[2024-08-08] MEDS: THIAMINE HCL 100 MG TAB PO SCH (09:46)
[2024-08-08] MEDS: FOLIC ACID 1 MG TAB PO SCH (09:46)
[2024-08-08] MEDS: tiZANidine HCL 4 MG TABLET PO SCH (09:48)
--- NOTE | 2024-08-08 13:03 | Hospitalist Progress Note ---
Date of Service August 08, 2024 Assessment & Plan (1) Alcohol withdrawal: Plan: Alcohol withdrawal Alcohol level 113.5 Monitor for withdrawal Continue gabapentin Ativan as needed Continue thiamine, folic acid, multivitamin Hyponatremia In the setting of alcohol abuse Sodium 128 today Received fluids Check TSH Monitor sodium levels closely Abnormal urinalysis Rule out UTI Urine culture pending Empirically on Rocephin Traumatic left knee pain Suprapatellar fluid Ambulatory dysfunction --Knee X ray:No displaced acute osseous process is identified. Small suprapatellar joint fluid. Moderate tricompartmental osteoarthritic changes. Likely chronic injury at the tibial tuberosity over the patella tendon attachment. -- May need MRI --Pain control, fall precautions Orthopedics consulted PT OT eval as able Other chronic conditions Hypertension Hyperlipidemia H/O bladder cancer s/p surgery ongoing tobacco abuse Continue home medications as able Monitor blood pressure DVT pX: SCDs re: possible procedure CODE STATUS DNI DNR Disposition PT OT prior to discharge Admission and Anticipated Discharge Date Admission Date: August 07, 2024 Subjective Patient is seen and examined at bedside States having left knee pain especially with movement Offers no other complaints today Denies any chest pain, dyspnea, nausea, vomiting, abdominal pain No significant alcohol withdrawal symptoms during my encounter Review of Systems Review of Systems: All systems reviewed & are unremarkable except as noted in Subjective Physical Exam Physical Exam: Physical Exam: Vitals signs as noted above General Appearance:Moderately built and nourished, no apparent distress Head: normocephalic, Atraumatic Eyes: normal inspection, EOMI Neck: supple, Trachea midline Respiratory/Chest: Normal breath sounds, CTA, No accessory muscle use Cardiovascular: S1, S2, No murmur Abdomen/GI:Soft, Non tender, Bowel sounds present Extremities/Musculoskeletal:normal inspection, left knee tender, decreased ROM, immobilizer Neurologic/Psych:AAOX3, grossly no focal neurological deficits, slightly decreased hearing Skin: normal color, warm Results & Data Results & Data Vital Signs (Past 12 Hours) Vital Signs Temp Pulse Pulse Pulse Resp BP Pulse Ox 08/08/24 08:00 37.2 C 73 18 130/69 92 08/08/24 07:10 71 08/08/24 04:27 72 14 120/63 91 08/08/24 02:41 72 08/08/24 01:24 67 19 119/65 94 O2 Del Method 08/08/24 08:00 Room Air 08/08/24 07:10 08/08/24 04:27 Room Air 08/08/24 02:41 08/08/24 01:24 Room Air Laboratory Results Short CBC 08/07/24 08/08/24 Range/Units 22:55 05:21 WBC 16.34 H 13.00 H (4.8-10.8) K/ul Hgb 14.7 13.9 L (14.0-18.0) g/dl Hct 41.3 L 39.5 L (42.0-52.0) % Plt Count 242 241 (130-400) K/uL BMP 08/07/24 08/08/24 22:55 05:21 Sodium 126 L 128 L Potassium 4.6 4.9 Chloride 94 L 98 Carbon Dioxide 25 27 BUN 11 11 Creatinine 1.03 1.02 Glucose 91 97 Calcium 8.9 8.6 Liver Function 08/07/24 Range/Units 22:55 Total Bilirubin 0.6 (0.2-1.0) mg/dl AST 22 (13-39) U/L ALT 11 (7-52) U/L Alkaline Phosphatase 89 (34-104) U/L Albumin 4.1 (3.4-5.0) gm/dl Urine 08/08/24 Range/Units 00:10 Urine Color Yellow Urine Appearance Clear (Clear) Urine pH 6.0 (4.5-7.5) Ur Specific [place] 1.003 (1.000-1.030) Urine Protein Negative (Negative) Urine Glucose (UA) Negative (Negative)
[2024-08-08] MEDS: oxyCODONE HCL IR 5 MG TAB (IMMEDIATE RELEASE) PO PRN (18:19)
[2024-08-08] MEDS: ATORVASTATIN 20 MG TAB PO SCH (21:59)
[2024-08-09 08:01] LABS: Hematocrit (blood only) 37.7 % (42.0-52.0); Mean Corpuscular Hemoglobin 33.8 pg (25.0-34.0); Mean Corpuscular Hgb Conc 34.5 g/dL (32.0-36.0); Mean Corpuscular Volume 97.9 fL (80.0-100.0); Mean Platelet Volume 8.8 fL (9.4-12.4); Platelet Count 230 K/uL (130-400); RDW Coefficient of Variation 12.4 % (11.5-14.5); RDW Standard Deviation 44.6 fL (36.4-46.3); Red Blood Count 3.85 M/uL (4.70-6.10); White Blood Count 12.45 K/ul (4.8-10.8)
[2024-08-09 08:18] LABS: BUN Creatinine Ratio 14.2 (10-20); Calcium 8.8 mg/dl (8.6-10.3); Creatinine Clr Calc Pharmacy 49.5 ml/min; Magnesium 2.3 mg/dl (1.7-2.4); Potassium 4.7 mmol/L (3.5-5.1); Uric Acid 6.6 mg/dl (2.6-7.2)
[2024-08-09 08:32] LABS: Thyroid Stimulating Hormone 1.445 uIu/ml (0.300-4.500)
[2024-08-09] MEDS: SODIUM CHLORIDE 0.9% 1,000 ML IV ONE (13:01)
--- NOTE | 2024-08-09 15:04 | Hospitalist Progress Note ---
Date of Service August 09, 2024 Assessment & Plan (1) Alcohol withdrawal: Plan: Alcohol withdrawal Alcohol level 113.5 Monitor for withdrawal Continue gabapentin Ativan as needed Continue thiamine, folic acid, multivitamin Currently no obvious signs of alcohol withdrawal Hyponatremia In the setting of alcohol abuse Normal TSH Sodium 131 today Received fluids Monitor sodium levels UTI--POA Urine culture--Klebsiella, E. coli: Sensitivities pending Empirically on Rocephin Traumatic left knee pain Suprapatellar fluid Ambulatory dysfunction --Knee X ray:No displaced acute osseous process is identified. Small suprapatellar joint fluid. Moderate tricompartmental osteoarthritic changes. Likely chronic injury at the tibial tuberosity over the patella tendon attachment. -- May need MRI --Pain control, fall precautions Orthopedics consulted--pending eval PT OT eval as able Other chronic conditions Hypertension Hyperlipidemia H/O bladder cancer s/p surgery ongoing tobacco abuse Continue home medications as able Monitor blood pressure DVT pX: SCDs Heparin subcu CODE STATUS DNI DNR Disposition PT OT prior to discharge Admission and Anticipated Discharge Date Admission Date: August 07, 2024 Subjective Patient is seen and examined at bedside Less knee pain today No signs of alcohol withdrawal No new complaints Denies any chest pain, dyspnea, nausea, vomiting, abdominal pain Review of Systems Review of Systems: All systems reviewed & are unremarkable except as noted in Subjective Physical Exam Physical Exam: Physical Exam: Vitals signs as noted above General Appearance:Moderately built and nourished, no apparent distress Head: normocephalic, Atraumatic Eyes: normal inspection, EOMI Neck: supple, Trachea midline Respiratory/Chest: Normal breath sounds, CTA, No accessory muscle use Cardiovascular: S1, S2, No murmur Abdomen/GI:Soft, Non tender, Bowel sounds present Extremities/Musculoskeletal:normal inspection, left knee tender, decreased ROM, immobilizer Neurologic/Psych:AAOX3, grossly no focal neurological deficits, slightly decreased hearing Skin: normal color, warm Results & Data Results & Data Vital Signs (Past 12 Hours) Vital Signs Temp Pulse Pulse Pulse Resp BP BP 08/09/24 14:40 64 08/09/24 11:25 36.9 C 64 18 93/54 L 86/50 L 08/09/24 08:14 37.3 C 64 18 142/76 H 08/09/24 07:19 67 04/06/25 04:00 36.5 C 65 18 117/66 Pulse Ox O2 Del Method 08/09/24 14:40 08/09/24 11:25 92 Room Air 08/09/24 08:14 92 Room Air 08/09/24 07:19 08/09/24 04:00 91 Room Air Laboratory Results Short CBC 08/09/24 Range/Units 07:34 WBC 12.45 H (4.8-10.8) K/ul Hgb 13.0 L (14.0-18.0) g/dl Hct 37.7 L (42.0-52.0) % Plt Count 230 (130-400) K/uL BMP 08/09/24 07:34 Sodium 131 L Potassium 4.7 Chloride 99 Carbon Dioxide 27 BUN 19 Creatinine 1.34 D Glucose 112 H Calcium 8.8
[2024-08-09] MEDS: HEPARIN SOD 5,000 UNIT/0.5 ML VIAL SQ SCH (22:04)
[2024-08-09] MEDS: GABAPENTIN 600 MG TAB PO SCH (23:26)
[2024-08-10 10:12] LABS: Mean Corpuscular Hemoglobin 33.6 pg (25.0-34.0); Mean Corpuscular Hgb Conc 34.2 g/dL (32.0-36.0); Mean Corpuscular Volume 98.2 fL (80.0-100.0); Mean Platelet Volume 8.8 fL (9.4-12.4); Platelet Count 221 K/uL (130-400); RDW Coefficient of Variation 12.2 % (11.5-14.5); RDW Standard Deviation 43.9 fL (36.4-46.3); Red Blood Count 3.87 M/uL (4.70-6.10); White Blood Count 11.68 K/ul (4.8-10.8)
[2024-08-10 10:27] LABS: Calcium 8.7 mg/dl (8.6-10.3); Creatinine Clr Calc Pharmacy 49.9 ml/min; Potassium 4.5 mmol/L (3.5-5.1)
--- NOTE | 2024-08-10 15:25 | Hospitalist Progress Note ---
Date of Service August 10, 2024 Assessment & Plan (1) Alcohol withdrawal: Plan: Alcohol withdrawal Alcohol level 113.5 Monitor for withdrawal Continue gabapentin Ativan as needed Continue thiamine, folic acid, multivitamin Monitor for any withdrawal Hyponatremia In the setting of alcohol abuse Normal TSH Sodium 132 today Received fluids Monitor sodium levels UTI--POA Urine culture--Klebsiella, E. coli Continue IV Rocephin Traumatic left knee pain Suprapatellar fluid Ambulatory dysfunction --Knee X ray:No displaced acute osseous process is identified. Small suprapatellar joint fluid. Moderate tricompartmental osteoarthritic changes. Li stanley chronic injury at the tibial tuberosity over the patella tendon attachment. -- May need MRI --Pain control, fall precautions Orthopedics consulted--pending eval PT OT eval as able May need rehab placement Other chronic conditions Hypertension Hyperlipidemia H/O bladder cancer s/p surgery ongoing tobacco abuse Continue home medications as able Monitor blood pressure DVT pX: SCDs Heparin SQ CODE STATUS DNI DNR Disposition PT OT prior to discharge Admission and Anticipated Discharge Date Admission Date: August 07, 2024 Subjective Patient is seen and examined at bedside Continues to have left knee pain with minimal movement Denies any chest pain, dyspnea, nausea, vomiting, abdominal pain Offers no other complaints today Review of Systems Review of Systems: All systems reviewed & are unremarkable except as noted in Subjective Physical Exam Physical Exam: Physical Exam: Vitals signs as noted above General Appearance:Moderately built and nourished, no apparent distress Head: normocephalic, Atraumatic Eyes: normal inspection, EOMI Neck: supple, Trachea midline Respiratory/Chest: Normal breath sounds, CTA, No accessory muscle use Cardiovascular: S1, S2, No murmur Abdomen/GI:Soft, Non tender, Bowel sounds present Extremities/Musculoskeletal:normal inspection, left knee tender, decreased ROM, immobilizer Neurologic/Psych:AAOX3, grossly no focal neurological deficits, slightly decreased hearing Skin: normal color, warm Results & Data Results & Data Vital Signs (Past 12 Hours) Vital Signs Temp Pulse Pulse Pulse Resp BP BP 08/10/24 11:20 37.2 C 68 18 97/57 L 08/10/24 07:47 36.7 C 74 18 192/75 H 08/10/24 07:26 74 08/10/24 03:39 36.9 C 64 18 124/66 Pulse Ox O2 Del Method 08/10/24 11:20 91 Room Air 08/10/24 07:47 92 Room Air 08/10/24 07:26 08/10/24 03:39 92 Room Air Laboratory Results Short CBC 08/10/24 Range/Units 09:55 WBC 11.68 H (4.8-10.8) K/ul Hgb 13.0 L (14.0-18.0) g/dl Hct 38.0 L (42.0-52.0) % Plt Count 221 (130-400) K/uL BMP 08/10/24 09:55 Sodium 132 L Potassium 4.5 Chloride 101 Carbon Dioxide 25 BUN 16 Creatinine 1.33 Glucose 181 H Calcium 8.7
--- NOTE | 2024-08-10 17:07 | Procedure Note ---
Procedure Note Date of Service August 10, 2024 Patient agreed to proceed with aspiration of the left knee. Left knee was sterilely prepped with alcohol, using aseptic technique 80ml of dark blood was aspirated from the knee. He tolerated the procedure well. No complications. He was unable still to do straight leg raise after the aspiration. Immobilizer reapplied. Coding Additional Codes Date of Service ([email or web address])
--- NOTE | 2024-08-10 17:45 | Orthopedic Consultation ---
Date of Service August 10, 2024 Assessment & Plan (1) Effusion, left knee: (2) Injury of quadriceps tendon: Plan Extensor mechanism dysfunction following twisting knee injury and/or direct trauma. The knee was aspirated for symptomatic relief, but the patient remained unable to demonstrate integrity of his extensor mechanism. Due to this uncertainty, I would recommend MRI evaluation to ensure he did not have a quadricep or patella tendon rupture requiring surgical intervention in the near term. Likely, this is a posttraumatic effusion that should resolve. In the meantime, he can be weightbearing and range of motion as tolerated. Recommend knee immobilizer whenever ambulatory. The knee immobilizer, remove when he is at rest in the chair or in bed. Encourage knee range of motion. Will follow-up after MRI review. History of Present Illness Reason for Consultation: Left knee pain and swelling after injury Requesting Physician: . Attending Physician: Raymundo Simpson MD 83-year-old male admitted a few days ago with alcohol withdrawal and hyponatremia reports significant left knee pain. He was treated with a knee immobilizer in the ER. Pain has not improved much. He says he has a lot of pressure and swelling. Does not feel like he can lift his leg or use his knee reliably. He says has had chronic pain in the past but no real issues in his left knee. Is more his right knee. He says he is using his walker at home. He notes a cigarette on the floor, and he bent over to pick it up. At that point he lost his balance, slammed his right knee onto the floor, and twisted his left knee. This resulted in significant swelling and difficulty extending his knee afterwards. He says his left knee has not required any treatment recently. He had an old injury from sliding into third base when he was younger, resulting in significant swelling. For that, he had an aspiration or drainage and it resolved symptoms. Allergies Allergy/AdvReac Type Severity Reaction Status Date / Time meclizine Allergy Severe THROAT/TONGUE Verified 08/07/24 22:31 SWELLS aspirin AdvReac Unknown History of Verified 08/07/24 22:31 ulcers Home Medications Medication Instructions Recorded Confirmed Type acetaminophen 500 mg tablet 500 - 1,000 mg PO Q8H PRN Pain 11/28/18 08/07/24 History (Tylenol Extra Strength) atenolol 50 mg tablet 100 mg PO DAILY 11/28/18 08/07/24 History atorvastatin 20 mg tablet 20 mg PO PM 11/28/18 08/07/24 History cholecalciferol (vitamin D3) 10 400 unit PO DAILY 11/28/18 08/07/24 History mcg/mL (400 unit/mL) oral drops (D-Vi-Tish) clonazepam 1 mg tablet 0.5 mg PO BID PRN Anxiety 11/28/18 08/07/24 History clonazepam 1 mg tablet 1 mg PO HS PRN RESTLESSNESS 11/28/18 08/07/24 History ferrous sulfate 325 mg (65 mg 325 mg PO DAILY 11/28/18 08/07/24 History iron) tablet lorazepam 1 mg tablet 1 mg PO DIRECTED PRN BEFORE 11/28/18 08/07/24 History TRAVELING jusjhmbp-bhlcshqm-xbcht acid 400 1 tab PO DAILY 11/28/18 08/07/24 History mcg-vit K 20 mcg-lycop 300 mcg tablet (Men's One Daily) omeprazole 20 mg capsule,delayed 20 mg PO DAILYBB 11/28/18 08/07/24 History release amlodipine 5 mg tablet 5 mg PO DAILY 05/16/22 08/07/24 History trazodone 50 mg tablet 50 mg PO HS 05/16/22 08/07/24 History magnesium oxide 400 mg (241.3 mg 400 mg PO BID #30 tabs 12/05/22 08/07/24 Rx magnesium) tablet baclofen 10 mg tablet 10 mg PO BID 12/28/22 08/07/24 History nystatin 100,000 unit/gram topical 1 applic topical BID PRN Skin 12/28/22 History cream Irritation oxycodone 5 mg tablet 5 mg PO Q4H PRN pain #15 tabs 08/07/24 Rx tizanidine 4 mg capsule 4 mg PO BID 08/07/24 08/07/24 History Past Med/Surg History Problem List (Updated 08/10/24 @ 17:44 by Fernando Richardson MD) Injury of quadriceps tendon Alcohol withdrawal Alcohol abuse with intoxication (Acute) Hyponatremia (Acute) Effusion, left knee (Acute) Left knee sprain (Acute) Diarrhea (Acute) Acute UTI (urinary tract infection) (Acute) Acute proctitis (Acute) Acute kidney injury superimposed on chronic kidney disease (Acute) Scalp laceration Sepsis (Acute) Anaplasmosis (Acute) Acute renal failure (Acute) Elevated troponin (Acute) Thrombocytopenia (Acute) Lymphopenia (Acute) UTI (urinary tract infection) Anaplasmosis Severe sepsis Tobacco use Anxiety Hyponatremia CKD (chronic kidney disease), stage III Diarrhea (Acute) JAROCHO (acute kidney injury) (Acute) Acute lower GI bleeding (Acute) Acute UTI (urinary tract infection) (Acute) Septic arthritis of elbow, right Encounter for pre-operative examination Degenerative joint disease of elbow, right Effusion of elbow joint, right Alcoholism /alcohol abuse Right elbow pain (Acute) . Macular degeneration (Chronic) Tinnitus (Chronic) Leukocytosis (Acute) GI bleed (Acute) Renal failure (Acute) History of carcinoma of bladder (Chronic) Dyslipidemia (Chronic) History of colon polyps (Chronic) Hypertension (Chronic) Anemia due to blood loss, acute (Acute) Acute kidney injury (Acute) Status post lumbar surgery (Chronic) Ankle fracture (Acute) Surgical History H/O total cystectomy with ileal conduit Family History Other Cancer Coronary heart disease Social History Smoking Status: Current every day smoker Tobacco Type: Cigarettes Cigarettes Per Day: 6; Second Hand Exposure: Yes; Do You Dip or Chew Tobacco: No; Hx Alcohol Use: Yes Alcohol type: beer Alcohol Intake Frequency: 2-3 x/Week Hx Substance Use: No Preferred Language: Italian Communication Ability: Effective Communication Ability Comment: Macular degeneration, legally blind Drafting Clerk Required: No Beliefs That Will Affect Care: None marital status: / Current Living Situation: Alone Feels Safe at Home: Yes Assistive Devices: Cane and Walker Review of Systems All systems reviewed & are unremarkable except as noted in HPI & below. Physical Exam Left knee: Knee immobilizer loosened and open for exam. Obvious effusion. On palpation, he has an intact knee capsule and no obvious extensor mechanism deficit. He is unable to perform a straight leg raise. With passive sotero tance, he cannot maintain a straight leg raise and he falls into flexion. Minimally tender along the medial and lateral joint lines and condyles. Most of the tenderness over the anterior extensor mechanism. Constitutional WD/WN, vitals as above no acute distress and not intoxicated appearing Respiratory normal respiratory effort; no labored breathing Cardiovascular Extremities: normal capillary refill Results & Data Results & Data Laboratory Results . Diagnostic Findings Radiographs of his left knee demonstrate no obvious fractures. 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 No obvious Baha or brandie of the patella suggestive of extensor mechanism disruption. There is an effusion apparent on the lateral x-ray. No acute findings other than the effusion. PG Care Time/CCT Total # of Minutes Spent Total Time Spent with Patient: Total time spent is greater than 50% in coordination of care (as documented) at patient's floor/unit and/or counseling patient: Coding Level of Care Code 93837 IN/OBS CONSULT LVL 4,60M Diagnoses Effusion, left knee M25.462 Injury of quadriceps tendon S76.109A
[2024-08-10] MEDS: MoRPHine SULFATE 4 MG/ML 1 ML CARP\\VIAL IV PRN (21:39)
--- NOTE | 2024-08-10 22:00 | Magnetic Resonance Report ---
EXAM: MR knee LT wo con CLINICAL HISTORY: Left knee injury TECHNIQUE: MRI evaluation of the left knee in the coronal, sagittal and axial planes was performed in multiple pulsing sequences without contrast administration. Images were sent through PACs for diagnostic interpretation. COMPARISON: Correlation with the previous x-ray on 08/07/2024. FINDINGS: Bones cortex and marrow: Normal alignment of the femur, tibia, fibula, and patella. Undisplaced comminuted depressed fracture of lateral tibial plateau with central depression by 5 mm (Schatzker IIIb). Diffuse osteoporotic changes. Unfused anterior tibial tuberosity, normal variant. Joints: Moderate osteoarthritis changes. No intra-articular loose bodies. Multiple erosions of the articular cartilage. Menisci: The medial meniscus: Complex tear of the posterior horn reaching superior articular surface on background of meniscal degeneration. The lateral meniscus: Mild high T2 signal intensity of the anterior and posterior meniscal roots, suggest mild contusion. Ligaments: No ligamentous injury or abnormalities. The anterior cruciate ligament: Intact With high T2 signal, reflecting moderate sprain. The posterior cruciate ligament: Intact. The medial collateral ligament: grade 1 injury The lateral collateral ligament: grade 1 injury Arcuate ligament: Intact with no abnormal signals. The fibular collateral ligament is Intact. Tendons: Normal appearance of the patellar tendon, quadriceps tendon, and other tendons around the knee. No tendinopathy or tears. Muscles: Sprained muscles around the knee joint. Trochlear Groove: The femoral intercondylar sulcus (trochlear groove): uniform cartilage. Patella: Chondromalacia patellar grade 4. Few small subchondral cysts. The medial and lateral retinacula are intact. Extensor Mechanism: The quadriceps femoris tendon is unremarkable. The patellar tendon is unremarkable. Other findings: Normal flow void in the popliteal artery and vein. Mild hemarthrosis. Mild subcutaneous edema around knee joint. IMPRESSION: 1. Undisplaced comminuted depressed fracture of lateral tibial plateau with central depression by 5 mm (Schatzker IIIb). 2. Moderate sprain vs partial tear inferiorly of anterior cruciate ligament. 3. Complex tear of the posterior horn of medial meniscus reaching superior articular surface on a background of meniscal degeneration. 4. The lateral meniscus shows mild abnormal signal intensity of the anterior and posterior meniscal roots, suggesting mild contusion. 5. Mild hemarthrosis. 6. Sprained muscles around the knee joint. 7. Moderate osteoarthritis changes with multiple erosions of the articular cartilage. 8. Chondromalacia patellar grade 4. 9. Grade 1 injury of collateral ligaments. 10. Diffuse osteoporotic changes. 11. Mild subcutaneous edema around knee joint. Electronically signed by Bruno Mix 08-10-2024 10:00 PM
--- NOTE | 2024-08-11 06:40 | Orthopedic Progress Note ---
Date of Service August 11, 2024 Assessment & Plan (1) Fracture of left tibial plateau: Recommend nonoperative management. PT/OT, partial weight bearing on left leg with knee immobilizer. Limited range of motion of the knee, okay to remove brace at rest and for hygiene. Should follow up with ortho in 1 month for xrays. (2) Right knee DJD: He is requesting a steroid injection. I will order this and be back up later today for an injection. Procedure note: Patient agreed to proceed with steroid injection for the knee. Right knee was sterilely prepped and using aseptic technique a combination of 2ml of celestone and 8ml of 0.5% marcaine was injected into the knee. He tolerated the procedure well. No complications. Subjective .83 year old patient with continued left knee pain. Aspiration of the knee yesterday revealed a large hemarthrosis. Also having right knee pain, with h/o arthritis and receives steroid injections. Myrtle had an appointment at [facility] for that but didn't have the injection yet. Review of Systems All systems reviewed & are unremarkable except as noted in HPI & below. Physical Exam . Left knee: large effusion again. Unable to do straight leg raise Right knee: varus alignment. trace effusion Results & Data Results & Data Laboratory Results . Diagnostic Findings .MRI of left knee reveals a lateral tibia plateau fracture with slight depression. PG Care Time/CCT Total # of Minutes Spent Total Time Spent with Patient: Total time spent is greater than 50% in coordination of care (as documented) at patient's floor/unit and/or counseling patient: Coding Level of Care Code 60017 SUB INP/OBS CARE 2/35MIN Diagnoses Fracture of left tibial plateau S82.142A Right knee DJD M17.11
[2024-08-11 07:08] LABS: BUN Creatinine Ratio 13.1 (10-20); Calcium 8.6 mg/dl (8.6-10.3); Creatinine Clr Calc Pharmacy 51.5 ml/min; Potassium 4.4 mmol/L (3.5-5.1)
[2024-08-11] MEDS: BETAMETH SOD PHOS/ACETATE IA 6 MG/ML IA STA (11:08)
[2024-08-11] MEDS: BUPIVACAINE 0.5 % 5 MG/1 ML MPF 30ML VIAL INFIL ONE (11:08)
[2024-08-11] MEDS: GABAPENTIN 600 MG TAB PO SCH (11:09)
--- NOTE | 2024-08-11 15:35 | Hospitalist Progress Note ---
Date of Service August 11, 2024 Assessment & Plan (1) Alcohol withdrawal: Plan: Fall at home while he was trying to pick a cigarette from the floor Subsequent left knee pain and the x-ray did show fracture of the left tibial plateau --Knee X ray:No displaced acute osseous process is identified. Small suprapatellar joint fluid. Moderate tricompartmental osteoarthritic changes. Likely chronic injury at the tibial tuberosity over the patella tendon attachment. Appreciate orthopedic input and recommendation Partial weightbearing on left leg with knee immobilization. Limited range of motion of the knee and okay to remove brace at rest for hygiene and follow-up with the Ortho in 1 month with x-ray Osteoarthritis of right knee status post steroid injection 08/11/2024 PT OT eval as able May need rehab placement Alcohol withdrawal Alcohol level 113.5 Monitor for withdrawal Continue gabapentin Ativan as needed Continue thiamine, folic acid, multivitamin Monitor for any withdrawal No signs and no symptoms of withdrawal Hyponatremia In the setting of alcohol abuse Normal TSH Sodium 132 today Received fluids Sodium level has been normalized UTI--POA Urine culture--Klebsiella, E. coli Continue IV Rocephin Other chronic conditions Hypertension Hyperlipidemia H/O bladder cancer s/p surgery ongoing tobacco abuse Continue home medications as able Monitor blood pressure DVT pX: SCDs Heparin SQ CODE STATUS DNI DNR Disposition PT OT prior to discharge Admission and Anticipated Discharge Date Admission Date: August 07, 2024 Subjective 08/11/2024 The patient was seen and examined in medical telemetry unit He has been complaining of more pain in the left knee and is status post injection in the right knee today that is 08/11/2024 Denies any other significant symptoms Review of Systems Review of Systems: All systems reviewed and are unremarkable except as noted below Physical Exam Physical Exam: Lying in bed without any acute distress Constitutional: well developed, well nourished, + ill appearing and average body habitus Eyes: PERRL, conjunctivae normal, anicteric sclerae ENMT: external ear and nose normal, oropharynx normal Neck: trachea midline, no thyromegaly Respiratory: no respiratory distress Auscultation: lungs clear to auscultation bilaterally Cardiovascular: Rate/Rhythm: regular rate and regular rhythm; not tachycardic Heart Sounds: normal S1 and normal S2; no murmur Extremities: no edema Gastrointestinal (Abdomen): Inspection/Auscultation: normal bowel sounds; abdomen not distended Percussion/Palpation: abdomen soft; abdomen nontender Musculoskeletal: Has left knee brace on and complaining of more pain. Right knee seems to be less painful following injection Neurologic: normal touch/pain/proprioception and moves all extremities; no focal motor deficits Psychiatric: A+Ox3, euthymic affect Lymphatic: no cervical or axillary lymphadenopathy Results & Data Results & Data Vital Signs (Past 12 Hours) Vital Signs Temp Pulse Pulse Pulse Resp BP BP 08/11/24 15:14 37.0 C 69 20 147/78 H 08/11/24 13:17 126/67 08/11/24 11:21 36.8 C 69 18 88/50 L 08/11/24 07:31 67 08/11/24 07:25 36.7 C 63 18 150/74 H 08/11/24 03:30 36.6 C 68 20 153/77 H Pulse Ox O2 Del Method O2 Flow Rate 08/11/24 15:14 92 Room Air 08/11/24 13:17 08/11/24 11:21 92 Room Air 08/11/24 07:31 08/11/24 07:25 91 Room Air 08/11/24 03:30 92 Nasal Cannula 2 Laboratory Results BMP 08/11/24 05:27 Sodium 134 L Potassium 4.4 Chloride 100 Carbon Dioxide 28 BUN 17 Creatinine 1.30 Glucose 101 H Calcium 8.6 Medications Administered Current Inpatient Medications Acetaminophen (Acetaminophen 500 Mg Tab) 500 mg PO Q6H PRN PRN Reason: fever/pain Stop: 09/06/24 22:29 Amlodipine Besylate (Amlodipine Besylate 5 Mg Tab) 5 mg PO DAILY ALEKSANDRA Stop: 09/07/24 08:59 Last Admin: 08/11/24 08:56 Dose: 5 mg Atenolol (Atenolol 50 Mg Tablet) 100 mg PO DAILY ALEKSANDRA Stop: 09/07/24 08:59 Last Admin: 08/11/24 09:01 Dose: 100 mg Atorvastatin Calcium (Atorvastatin 20 Mg Tab) 20 mg PO PM ALEKSANDRA Stop: 09/07/24 20:59 Last Admin: 08/10/24 21:38 Dose: 20 mg Baclofen (Baclofen 10 Mg Tab) 10 mg PO BID ALEKSANDRA Stop: 09/06/24 23:14 Last Admin: 08/11/24 09:14 Dose: 10 mg Clonazepam (Clonazepam 0.5 Mg Tab) 0.5 mg PO BID PRN PRN Reason: Anxiety Stop: 09/06/24 23:09 Last Admin: 08/09/24 22:30 Dose: 0.5 mg Folic Acid (Folic Acid 1 Mg Tab) 1 mg PO QAM [facility] Stop: 09/07/24 08:59 Last Admin: 08/11/24 09:01 Dose: 1 mg Heparin Sodium (Porcine) (Heparin Sod 5,000 Unit/0.5 Ml Vial) 5,000 units SQ Q12 [facility] Stop: 09/08/24 20:59 Last Admin: 08/11/24 09:02 Dose: 5,000 units Promethazine HCl (Phenergan) 6.25 mg in 50.25 mls @ 201 mls/hr IV Q6H PRN PRN Reason: Nausea And Vomiting Stop: 09/06/24 22:28 Ceftriaxone Sodium (Rocephin) 2,000 mg in 50 mls @ 100 mls/hr IV Q24H [facility] Stop: 08/13/24 08:59 Last Infusion: 08/11/24 10:03 Dose: Infused Lorazepam (Lorazepam 2 Mg/1 Ml Vial) 1 mg IV UD PRN; Protocol PRN Reason: EtOH Withdrawal AWSS Score 6,7 Stop: 09/06/24 23:07 Lorazepam (Lorazepam 2 Mg/1 Ml Vial) 2 mg IV UD PRN; Protocol PRN Reason: EtOH Withdrawal AWSS Score 8,9 Stop: 09/06/24 23:07 Last Admin: 08/07/24 23:19 Dose: 2 mg Lorazepam (Lorazepam 2 Mg/1 Ml Vial) 3 mg IV ONCE PRN; Protocol PRN Reason: EtOH Withdrawal AWSS Score 10+ Morphine Sulfate (Morphine Sulfate 4 Mg/Ml 1 Ml Carp\Vial) 2 mg IV Q4H PRN PRN Reason: Pain Stop: 08/21/24 23:08 Last Admin: 08/10/24 21:39 Dose: 2 mg Multivitamins (Multivitamin Tab) 1 tab PO QAM [facility] Stop: 09/07/24 08:59 Last Admin: 08/11/24 09:01 Dose: 1 tab Oxycodone HCl (Oxycodone Hcl Ir 5 Mg Tab (Immediate Release)) 5 - 10 mg PO QID PRN PRN Reason: Pain Stop: 08/21/24 22:31 Last Admin: 08/11/24 06:06 Dose: 10 mg Pantoprazole Sodium (Pantoprazole 40 Mg Tab) 40 mg PO DAILYBB [facility] Stop: 09/07/24 06:29 Last Admin: 08/11/24 06:03 Dose: 40 mg Thiamine HCl (Thiamine Hcl 100 Mg Tab) 100 mg PO QAM [facility] Stop: 09/07/24 08:59 Last Admin: 08/11/24 09:14 Dose: 100 mg Tizanidine HCl (Tizanidine Hcl 4 Mg Tablet) 4 mg PO BID ALEKSANDRA Stop: 09/07/24 08:59 Last Admin: 08/11/24 09:01 Dose: 4 mg Trazodone HCl (Trazodone Hcl 50 Mg Tab) 50 mg PO HS [facility] Stop: 09/06/24 23:14 Last Admin: 08/10/24 21:38 Dose: 50 mg
--- NOTE | 2024-08-12 12:13 | Hospitalist Progress Note ---
Date of Service August 12, 2024 Assessment & Plan (1) Alcohol withdrawal: Plan: Fall at home while he was trying to pick a cigarette from the floor Subsequent left knee pain and the x-ray did show fracture of the left tibial plateau --Knee X ray:No displaced acute osseous process is identified. Small suprapatellar joint fluid. Moderate tricompartmental osteoarthritic changes. Likely chronic injury at the tibial tuberosity over the patella tendon attachment. Appreciate orthopedic input and recommendation Partial weightbearing on left leg with knee immobilization. Limited range of motion of the knee and okay to remove brace at rest for hygiene and follow-up with the Ortho in 1 month with x-ray Osteoarthritis of right knee status post steroid injection 08/11/2024 PT OT eval as able May need rehab placement Much better today and denies any significant pain Not yet ready to be discharged and awaiting more physical therapy and recommendation Dizziness Could be secondary to lying in bed and also dehydration Will get orthostatic vitals He was advised to drink more fluid Continue PT OT and reevaluation Alcohol withdrawal Alcohol level 113.5 Monitor for withdrawal Continue gabapentin Ativan as needed Continue thiamine, folic acid, multivitamin Monitor for any withdrawal No signs and no symptoms of withdrawal Hyponatremia In the setting of alcohol abuse Normal TSH Sodium 132 today Received fluids Sodium level has been normalized UTI--POA Urine culture--Klebsiella, E. coli Continue IV Rocephin Other chronic conditions Hypertension Hyperlipidemia H/O bladder cancer s/p surgery ongoing tobacco abuse Continue home medications as able Monitor blood pressure DVT pX: SCDs Heparin SQ CODE STATUS DNI DNR Disposition PT OT prior to discharge-recommended rehab right now Admission and Anticipated Discharge Date Admission Date: August 07, 2024 Subjective 08/11/2024 The patient was seen and examined in medical telemetry unit He has been complaining of more pain in the left knee and is status post injection in the right knee today that is 08/11/2024 Denies any other significant symptoms 08/12/2024 The patient was seen and examined in medical telemetry unit He complains today of some dizziness His pain seems to be reasonably controlled He will have more physical therapy and decision about disposition will be thereafter Review of Systems Review of Systems: All systems reviewed and are unremarkable except as noted below Physical Exam Physical Exam: Lying in bed without any acute distress Constitutional: well developed, well nourished, + ill appearing and average body habitus Eyes: PERRL, conjunctivae normal, anicteric sclerae ENMT: external ear and nose normal, oropharynx normal Neck: trachea midline, no thyromegaly Respiratory: no respiratory distress Auscultation: lungs clear to auscultation bilaterally Cardiovascular: Rate/Rhythm: regular rate and regular rhythm; not tachycardic Heart Sounds: normal S1 and normal S2; no murmur Extremities: no edema Gastrointestinal (Abdomen): Inspection/Auscultation: normal bowel sounds; abdomen not distended Percussion/Palpation: abdomen soft; abdomen nontender Neurologic: normal touch/pain/proprioception and moves all extremities; no focal motor deficits Psychiatric: A+Ox3, euthymic affect Lymphatic: no cervical or axillary lymphadenopathy Results & Data Results & Data Vital Signs (Past 12 Hours) Vital Signs Temp Pulse Pulse Resp BP Pulse Ox O2 Del Method 08/12/24 11:16 36.9 C 67 18 136/67 95 Room Air 08/12/24 07:30 37.0 C 65 18 187/66 H 94 Room Air 08/12/24 07:12 78 08/12/24 04:26 36.8 C 79 20 117/78 92 Room Air Medications Administered Current Inpatient Medications Acetaminophen (Acetaminophen 500 Mg Tab) 500 mg PO Q6H PRN PRN Reason: fever/pain Stop: 09/06/24 22:29 Amlodipine Besylate (Amlodipine Besylate 5 Mg Tab) 5 mg PO DAILY [facility] Stop: 09/07/24 08:59 Last Admin: 08/12/24 08:18 Dose: 5 mg Atenolol (Atenolol 50 Mg Tablet) 100 mg PO DAILY [facility] Stop: 09/07/24 08:59 Last Admin: 08/12/24 08:17 Dose: 100 mg Atorvastatin Calcium (Atorvastatin 20 Mg Tab) 20 mg PO PM [facility] Stop: 09/07/24 20:59 Last Admin: 08/11/24 20:53 Dose: 20 mg Baclofen (Baclofen 10 Mg Tab) 10 mg PO BID [facility] Stop: 09/06/24 23:14 Last Admin: 08/11/24 22:16 Dose: 10 mg Clonazepam (Clonazepam 0.5 Mg Tab) 0.5 mg PO BID PRN PRN Reason: Anxiety Stop: 09/06/24 23:09 Last Admin: 08/09/24 22:30 Dose: 0.5 mg Folic Acid (Folic Acid 1 Mg Tab) 1 mg PO QAM [facility] Stop: 09/07/24 08:59 Last Admin: 08/12/24 08:18 Dose: 1 mg Heparin Sodium (Porcine) (Heparin Sod 5,000 Unit/0.5 Ml Vial) 5,000 units SQ Q12 [facility] Stop: 09/08/24 20:59 Last Admin: 08/12/24 08:27 Dose: 5,000 units Promethazine HCl (Phenergan) 6.25 mg in 50.25 mls @ 201 mls/hr IV Q6H PRN PRN Reason: Nausea And Vomiting Stop: 09/06/24 22:28 Ceftriaxone Sodium (Rocephin) 2,000 mg in 50 mls @ 100 mls/hr IV Q24H [facility] Stop: 08/13/24 08:59 Last Admin: 08/12/24 08:18 Dose: 100 mls/hr Lorazepam (Lorazepam 2 Mg/1 Ml Vial) 1 mg IV UD PRN; Protocol PRN Reason: EtOH Withdrawal AWSS Score 6,7 Stop: 09/06/24 23:07 Lorazepam (Lorazepam 2 Mg/1 Ml Vial) 2 mg IV UD PRN; Protocol PRN Reason: EtOH Withdrawal AWSS Score 8,9 Stop: 09/06/24 23:07 Last Admin: 08/07/24 23:19 Dose: 2 mg Lorazepam (Lorazepam 2 Mg/1 Ml Vial) 3 mg IV ONCE PRN; Protocol PRN Reason: EtOH Withdrawal AWSS Score 10+ Morphine Sulfate (Morphine Sulfate 4 Mg/Ml 1 Ml Carp\Vial) 2 mg IV Q4H PRN PRN Reason: Pain Stop: 08/21/24 23:08 Last Admin: 08/10/24 21:39 Dose: 2 mg Multivitamins (Multivitamin Tab) 1 tab PO QAM [facility] Stop: 09/07/24 08:59 Last Admin: 08/12/24 08:18 Dose: 1 tab Oxycodone HCl (Oxycodone Hcl Ir 5 Mg Tab (Immediate Release)) 5 - 10 mg PO QID PRN PRN Reason: Pain Stop: 08/21/24 22:31 Last Admin: 08/11/24 06:06 Dose: 10 mg Pantoprazole Sodium (Pantoprazole 40 Mg Tab) 40 mg PO DAILYBB [facility] Stop: 09/07/24 06:29 Last Admin: 08/12/24 05:23 Dose: 40 mg Thiamine HCl (Thiamine Hcl 100 Mg Tab) 100 mg PO QAM [facility] Stop: 09/07/24 08:59 Last Admin: 08/12/24 08:17 Dose: 100 mg Tizanidine HCl (Tizanidine Hcl 4 Mg Tablet) 4 mg PO BID [facility] Stop: 09/07/24 08:59 Last Admin: 08/12/24 08:17 Dose: 4 mg Trazodone HCl (Trazodone Hcl 50 Mg Tab) 50 mg PO HS [facility] Stop: 09/06/24 23:14 Last Admin: 08/11/24 20:53 Dose: 50 mg
[2024-08-13] MEDS: ACETAMINOPHEN 500 MG TAB PO PRN (06:18)
--- NOTE | 2024-08-13 14:35 | Hospitalist Progress Note ---
Date of Service August 13, 2024 Assessment & Plan (1) Alcohol withdrawal: Plan: Fall at home while he was trying to pick a cigarette from the floor Subsequent left knee pain and the x-ray did show fracture of the left tibial plateau --Knee X ray:No displaced acute osseous process is identified. Small suprapatellar joint fluid. Moderate tricompartmental osteoarthritic changes. Likely chronic injury at the tibial tuberosity over the patella tendon attachment. Appreciate orthopedic input and recommendation Partial weightbearing on left leg with knee immobilization. Limited range of motion of the knee and okay to remove brace at rest for hygiene and follow-up with the Ortho in 1 month with x-ray Osteoarthritis of right knee status post steroid injection 08/11/2024 PT OT eval as able May need rehab placement Much better today and denies any significant pain Not yet ready to be discharged and awaiting more physical therapy and recommendation He has been stable today but complains to more weakness and headache without any other neurological symptoms He will be observed for another day and likely discharge tomorrow Dizziness Could be secondary to lying in bed and also dehydration Will get orthostatic vitals He was advised to drink more fluid Continue PT OT and reevaluation- recommended rehab and he has been accepted to [facility] Denies any more dizziness Alcohol withdrawal Alcohol level 113.5 Monitor for withdrawal Continue gabapentin Ativan as needed Continue thiamine, folic acid, multivitamin Monitor for any withdrawal No signs and no symptoms of withdrawal Hyponatremia In the setting of alcohol abuse Normal TSH Sodium 132 today Received fluids Sodium level has been normalized UTI--POA Urine culture--Klebsiella, E. coli Continue IV Rocephin- antibiotic course is done Other chronic conditions Hypertension Hyperlipidemia H/O bladder cancer s/p surgery ongoing tobacco abuse Continue home medications as able Monitor blood pressure DVT pX: SCDs Heparin SQ CODE STATUS DNI DNR Disposition PT OT prior to discharge-recommended rehab Admission and Anticipated Discharge Date Admission Date: August 07, 2024 Subjective 08/11/2024 The patient was seen and examined in medical telemetry unit He has been complaining of more pain in the left knee and is status post inj ection in the right knee today that is 08/11/2024 Denies any other significant symptoms 08/12/2024 The patient was seen and examined in medical telemetry unit He complains today of some dizziness His pain seems to be reasonably controlled He will have more physical therapy and decision about disposition will be thereafter 08/13/2024 The patient was seen and examined in medical telemetry unit He has been generally weak and lethargic today and also complains of headache does not feel like going to [facility] today He does not have any more dizziness though Review of Systems Review of Systems: All systems reviewed and are unremarkable except as noted below Physical Exam Physical Exam: Lying in bed without any acute distress Constitutional: well developed, well nourished, + ill appearing and average body habitus Eyes: PERRL, conjunctivae normal, anicteric sclerae ENMT: external ear and nose normal, oropharynx normal Neck: trachea midline, no thyromegaly Respiratory: no respiratory distress Auscultation: lungs clear to auscultation bilaterally Cardiovascular: Rate/Rhythm: regular rate and regular rhythm; not tachycardic Heart Sounds: normal S1 and normal S2; no murmur Extremities: no edema Gastrointestinal (Abdomen): Inspection/Auscultation: normal bowel sounds; abdomen not distended Percussion/Palpation: abdomen soft; abdomen nontender Neurologic: normal touch/pain/proprioception and moves all extremities; no focal motor deficits Psychiatric: A+Ox3, euthymic affect Lymphatic: no cervical or axillary lymphadenopathy Results & Data Results & Data Vital Signs (Past 12 Hours) Vital Signs Temp Pulse Pulse Resp BP Pulse Ox O2 Del Method 08/13/24 11:05 36.8 C 79 20 136/67 96 Room Air 08/13/24 10:01 65 08/13/24 07:35 36.7 C 62 20 179/87 H 92 Room Air 08/13/24 03:02 36.6 C 60 18 154/83 H 98 Room Air Medications Administered Current Inpatient Medications Acetaminophen (Acetaminophen 500 Mg Tab) 500 mg PO Q6H PRN PRN Reason: fever/pain Stop: 09/06/24 22:29 Last Admin: 08/13/24 06:18 Dose: 500 mg Amlodipine Besylate (Amlodipine Besylate 5 Mg Tab) 5 mg PO DAILY [facility] Stop: 09/07/24 08:59 Last Admin: 08/13/24 08:45 Dose: 5 mg Atenolol (Atenolol 50 Mg Tablet) 100 mg PO DAILY [facility] Stop: 09/07/24 08:59 Last Admin: 08/13/24 08:45 Dose: 100 mg Atorvastatin Calcium (Atorvastatin 20 Mg Tab) 20 mg PO PM [facility] Stop: 09/07/24 20:59 Last Admin: 08/12/24 20:32 Dose: 20 mg Baclofen (Baclofen 10 Mg Tab) 10 mg PO BID [facility] Stop: 09/06/24 23:14 Last Admin: 08/13/24 08:53 Dose: 10 mg Clonazepam (Clonazepam 0.5 Mg Tab) 0.5 mg PO BID PRN PRN Reason: Anxiety Stop: 09/06/24 23:09 Last Admin: 08/12/24 20:30 Dose: 0.5 mg Folic Acid (Folic Acid 1 Mg Tab) 1 mg PO QAM [facility] Stop: 09/07/24 08:59 Last Admin: 08/13/24 08:45 Dose: 1 mg Heparin Sodium (Porcine) (Heparin Sod 5,000 Unit/0.5 Ml Vial) 5,000 units SQ Q12 [facility] Stop: 09/08/24 20:59 Last Admin: 08/13/24 08:53 Dose: 5,000 units Promethazine HCl (Phenergan) 6.25 mg in 50.25 mls @ 201 mls/hr IV Q6H PRN PRN Reason: Nausea And Vomiting Stop: 09/06/24 22:28 Lorazepam (Lorazepam 2 Mg/1 Ml Vial) 1 mg IV UD PRN; Protocol PRN Reason: EtOH Withdrawal AWSS Score 6,7 Stop: 09/06/24 23:07 Lorazepam (Lorazepam 2 Mg/1 Ml Vial) 2 mg IV UD PRN; Protocol PRN Reason: EtOH Withdrawal AWSS Score 8,9 Stop: 09/06/24 23:07 Last Admin: 08/07/24 23:19 Dose: 2 mg Lorazepam (Lorazepam 2 Mg/1 Ml Vial) 3 mg IV ONCE PRN; Protocol PRN Reason: EtOH Withdrawal AWSS Score 10+ Morphine Sulfate (Morphine Sulfate 4 Mg/Ml 1 Ml Carp\Vial) 2 mg IV Q4H PRN PRN Reason: Pain Stop: 08/21/24 23:08 Last Admin: 08/10/24 21:39 Dose: 2 mg Multivitamins (Multivitamin Tab) 1 tab PO QAM [facility] Stop: 09/07/24 08:59 Last Admin: 08/13/24 08:45 Dose: 1 tab Oxycodone HCl (Oxycodone Hcl Ir 5 Mg Tab (Immediate Release)) 5 - 10 mg PO QID PRN PRN Reason: Pain Stop: 08/21/24 22:31 Last Admin: 08/13/24 14:25 Dose: 10 mg Pantoprazole Sodium (Pantoprazole 40 Mg Tab) 40 mg PO DAILYBB [facility] Stop: 09/07/24 06:29 Last Admin: 08/13/24 06:18 Dose: 40 mg Thiamine HCl (Thiamine Hcl 100 Mg Tab) 100 mg PO QAM [facility] Stop: 09/07/24 08:59 Last Admin: 08/13/24 08:45 Dose: 100 mg Tizanidine HCl (Tizanidine Hcl 4 Mg Tablet) 4 mg PO BID [facility] Stop: 09/07/24 08:59 Last Admin: 08/13/24 08:45 Dose: 4 mg Trazodone HCl (Trazodone Hcl 50 Mg Tab) 50 mg PO HS [facility] Stop: 09/06/24 23:14 Last Admin: 08/12/24 20:33 Dose: 50 mg
--- NOTE | 2024-08-14 07:55 | Orthopedic Progress Note ---
Date of Service August 14, 2024 Assessment & Plan (1) Right knee DJD: (2) Fracture of left tibial plateau: Continue PWB with knee immobilizer on left leg, okay to wbat on right leg. Should follow up with his orthopedic provider in 1 month for repeat xrays. He is awaiting possible d/c today to rehab. Subjective . 83 year old patient with bilateral knee djd and left tibia plateau fx. Awaiting placement at [facility]. The steroid injection has helped his right knee. Continues to have left knee pain, and did accidentally put some increased weight on it. Review of Systems All systems reviewed & are unremarkable except as noted in HPI & below. Physical Exam . alert and oriented. NAD BLE: no significant effusion of right knee, varus alignment. Knee immobilizer on left leg, unable to do SLR of left leg. Results & Data Results & Data Laboratory Results . Diagnostic Findings . PG Care Time/CCT Total # of Minutes Spent Total Time Spent with Patient: Total time spent is greater than 50% in coordination of care (as documented) at patient's floor/unit and/or counseling patient: Coding Level of Care Code 05864 Post Operative Follow-Up Diagnoses Right knee DJD M17.11 Fracture of left tibial plateau S82.142A
--- NOTE | 2024-08-14 11:37 | Hospitalist Progress Note ---
Date of Service August 14, 2024 Assessment & Plan (1) Alcohol withdrawal: Plan: Fall at home while he was trying to pick a cigarette from the floor Subsequent left knee pain and the x-ray did show fracture of the left tibial plateau --Knee X ray:No displaced acute osseous process is identified. Small suprapatellar joint fluid. Moderate tricompartmental osteoarthritic changes. Likely chronic injury at the tibial tuberosity over the patella tendon attachment. Appreciate orthopedic input and recommendation Partial weightbearing on left leg with knee immobilization. Limited range of motion of the knee and okay to remove brace at rest for hygiene and follow-up with the Ortho in 1 month with x-ray Osteoarthritis of right knee status post steroid injection 08/11/2024 PT OT eval as able May need rehab placement Much better today and denies any significant pain Not yet ready to be discharged and awaiting more physical therapy and recommendation He has been stable today but complains to more weakness and headache without any other neurological symptoms He is not yet ready to be discharged today as he is having more pain in the left lower extremity, increasing headache and also mentally and physically not yet ready to be discharged with more weakness and tiredness He will be given symptomatic medication and will be observed today If he feels better may be going tomorrow otherwise on Saturday Dizziness Could be secondary to lying in bed and also dehydration Will get orthostatic vitals He was advised to drink more fluid Continue PT OT and reevaluation- recommended rehab and he has been accepted to [facility] Denies any more dizziness Alcohol withdrawal Alcohol level 113.5 Monitor for withdrawal Continue gabapentin Ativan as needed Continue thiamine, folic acid, multivitamin Monitor for any withdrawal No signs and no symptoms of withdrawal Hyponatremia In the setting of alcohol abuse Normal TSH Sodium 132 today Received fluids Sodium level has been normalized Will check his labs again tomorrow UTI--POA Urine culture--Klebsiella, E. coli Continue IV Rocephin- antibiotic course is done Other chronic conditions Hypertension Hyperlipidemia H/O bladder cancer s/p surgery ongoing tobacco abuse Continue home medications as able Monitor blood pressure DVT pX: SCDs Heparin SQ CODE STATUS DNI DNR Disposition PT OT prior to discharge-recommended rehab Admission and Anticipated Discharge Date Admission Date: August 07, 2024 Subjective 08/11/2024 The patient was seen and examined in medical telemetry unit He has been complaining of more pain in the left knee and is status post injection in the right knee today that is 08/11/2024 Denies any other significant symptoms 08/12/2024 The patient was seen and examined in medical telemetry unit He complains today of some dizziness His pain seems to be reasonably controlled He will have more physical therapy and decision about disposition will be thereafter 08/13/2024 The patient was seen and examined in medical telemetry unit He has been generally weak and lethargic today and also complains of headache does not feel like going to [facility] today He does not have any more dizziness though 08/14/2024 The patient was seen and examined in medical telemetry unit He has been feeling more pain in the leg, headache and does not feel good to be discharged today Denies any chest pain, shortness of breath, denies any abdominal pain, nausea or vomiting Review of Systems Review of Systems: All systems reviewed and are unremarkable except as noted below Physical Exam Physical Exam: Lying in bed without any acute distress Constitutional: well developed, well nourished, + ill appearing and average body habitus Eyes: PERRL, conjunctivae normal, anicteric sclerae ENMT: external ear and nose normal, oropharynx normal Neck: trachea midline, no thyromegaly Respiratory: no respiratory distress Auscultation: lungs clear to auscultation bilaterally Cardiovascular: Rate/Rhythm: regular rate and regular rhythm; not tachycardic Heart Sounds: normal S1 and normal S2; no murmur Extremities: no edema Gastrointestinal (Abdomen): Inspection/Auscultation: normal bowel sounds; abdomen not distended Percussion/Palpation: abdomen soft; abdomen nontender Neurologic: normal touch/pain/proprioception and moves all extremities; no focal motor deficits Psychiatric: A+Ox3, euthymic affect Lymphatic: no cervical or axillary lymphadenopathy Results & Data Results & Data Vital Signs (Past 12 Hours) Vital Signs Temp Pulse Pulse Resp BP Pulse Ox O2 Del Method 08/14/24 11:33 36.5 C 58 L 18 120/60 93 Room Air 08/14/24 07:38 36.8 C 61 18 171/80 H 92 Room Air 08/14/24 05:42 63 08/14/24 04:04 36.7 C 61 18 165/86 H 92 Room Air Medications Administered Current Inpatient Medications Acetaminophen (Acetaminophen 500 Mg Tab) 500 mg PO Q6H PRN PRN Reason: fever/pain Stop: 09/06/24 22:29 Last Admin: 08/14/24 09:20 Dose: 500 mg Amlodipine Besylate (Amlodipine Besylate 5 Mg Tab) 5 mg PO DAILY [facility] Stop: 09/07/24 08:59 Last Admin: 08/14/24 09:12 Dose: 5 mg Atenolol (Atenolol 50 Mg Tablet) 100 mg PO DAILY [facility] Stop: 09/07/24 08:59 Last Admin: 08/14/24 09:11 Dose: 100 mg Atorvastatin Calcium (Atorvastatin 20 Mg Tab) 20 mg PO PM [facility] Stop: 09/07/24 20:59 Last Admin: 08/13/24 20:24 Dose: 20 mg Baclofen (Baclofen 10 Mg Tab) 10 mg PO BID [facility] Stop: 09/06/24 23:14 Last Admin: 08/14/24 09:16 Dose: 10 mg Clonazepam (Clonazepam 0.5 Mg Tab) 0.5 mg PO BID PRN PRN Reason: Anxiety Stop: 09/06/24 23:09 Last Admin: 08/12/24 20:30 Dose: 0.5 mg Folic Acid (Folic Acid 1 Mg Tab) 1 mg PO QAM [facility] Stop: 09/07/24 08:59 Last Admin: 08/14/24 09:11 Dose: 1 mg Heparin Sodium (Porcine) (Heparin Sod 5,000 Unit/0.5 Ml Vial) 5,000 units SQ Q12 [facility] Stop: 09/08/24 20:59 Last Admin: 08/14/24 09:16 Dose: 5,000 units Promethazine HCl (Phenergan) 6.25 mg in 50.25 mls @ 201 mls/hr IV Q6H PRN PRN Reason: Nausea And Vomiting Stop: 09/06/24 22:28 Lorazepam (Lorazepam 2 Mg/1 Ml Vial) 1 mg IV UD PRN; Protocol PRN Reason: EtOH Withdrawal AWSS Score 6,7 Stop: 09/06/24 23:07 Lorazepam (Lorazepam 2 Mg/1 Ml Vial) 2 mg IV UD PRN; Protocol PRN Reason: EtOH Withdrawal AWSS Score 8,9 Stop: 09/06/24 23:07 Last Admin: 08/07/24 23:19 Dose: 2 mg Lorazepam (Lorazepam 2 Mg/1 Ml Vial) 3 mg IV ONCE PRN; Protocol PRN Reason: EtOH Withdrawal AWSS Score 10+ Morphine Sulfate (Morphine Sulfate 4 Mg/Ml 1 Ml Carp\Vial) 2 mg IV Q4H PRN PRN Reason: Pain Stop: 08/21/24 23:08 Last Admin: 08/10/24 21:39 Dose: 2 mg Multivitamins (Multivitamin Tab) 1 tab PO QAM [facility] Stop: 09/07/24 08:59 Last Admin: 08/14/24 09:11 Dose: 1 tab Oxycodone HCl (Oxycodone Hcl Ir 5 Mg Tab (Immediate Release)) 5 - 10 mg PO QID PRN PRN Reason: Pain Stop: 08/21/24 22:31 Last Admin: 08/14/24 06:47 Dose: 10 mg Pantoprazole Sodium (Pantoprazole 40 Mg Tab) 40 mg PO DAILYBB [facility] Stop: 09/07/24 06:29 Last Admin: 08/14/24 06:22 Dose: 40 mg Thiamine HCl (Thiamine Hcl 100 Mg Tab) 100 mg PO QAM [facility] Stop: 09/07/24 08:59 Last Admin: 08/14/24 09:11 Dose: 100 mg Tizanidine HCl (Tizanidine Hcl 4 Mg Tablet) 4 mg PO BID [facility] Stop: 09/07/24 08:59 Last Admin: 08/14/24 09:12 Dose: 4 mg Trazodone HCl (Trazodone Hcl 50 Mg Tab) 50 mg PO HS [facility] Stop: 09/06/24 23:14 Last Admin: 08/13/24 20:24 Dose: 50 mg
[2024-08-15 08:29] LABS: Basophils # (auto) 0.07 K/uL (0.00-0.20); Basophils % (auto) 0.6 %; Eosinophils # (auto) 0.36 K/uL (0.00-0.50); Eosinophils % (auto) 3.2 %; Hematocrit (blood only) 39.4 % (42.0-52.0); Hemoglobin 13.4 g/dl (14.0-18.0); Immature Granulocytes # (auto) 0.17 K/uL (0.01-0.20); Immature Granulocytes % (auto) 1.5 %; Lymphocytes # (auto) 2.59 K/uL (1.20-3.40); Lymphocytes % (auto) 22.9 %; Mean Corpuscular Hemoglobin 33.3 pg (25.0-34.0); Mean Corpuscular Volume 97.8 fL (80.0-100.0); Mean Platelet Volume 9.4 fL (9.4-12.4); Monocytes # (auto) 1.38 K/uL (0.11-0.59); Monocytes % (auto) 12.2 %; Neutrophils # (auto) 6.72 K/uL (1.40-6.50); Neutrophils % (auto) 59.6 %; Platelet Count 315 K/uL (130-400); RDW Coefficient of Variation 12.2 % (11.5-14.5); RDW Standard Deviation 43.9 fL (36.4-46.3); Red Blood Count 4.03 M/uL (4.70-6.10); White Blood Count 11.29 K/ul (4.8-10.8)
[2024-08-15 08:49] LABS: BUN Creatinine Ratio 23.9 (10-20); Creatinine Clr Calc Pharmacy 56.2 ml/min; Potassium 4.4 mmol/L (3.5-5.1)
--- NOTE | 2024-08-15 13:51 | Hospitalist Progress Note ---
Date of Service August 15, 2024 Assessment & Plan (1) Alcohol withdrawal: Plan: Fall at home while he was trying to pick a cigarette from the floor Subsequent left knee pain and the x-ray did show fracture of the left tibial plateau --Knee X ray:No displaced acute osseous process is identified. Small suprapatellar joint fluid. Moderate tricompartmental osteoarthritic changes. Likely chronic injury at the tibial tuberosity over the patella tendon attachment. Appreciate orthopedic input and recommendation Partial weightbearing on left leg with knee immobilization. Limited range of motion of the knee and okay to remove brace at rest for hygiene and follow-up with the Ortho in 1 month with x-ray Osteoarthritis of right knee status post steroid injection 08/11/2024 PT OT eval as able May need rehab placement Much better today and denies any significant pain Not yet ready to be discharged and awaiting more physical therapy and recommendation He has been stable today but complains to more weakness and headache without any other neurological symptoms He is not yet ready to be discharged today as he is having more pain in the left lower extremity, increasing headache and also mentally and physically not yet ready to be discharged with more weakness and tiredness He will be given symptomatic medication and will be observed today If he feels better may be going tomorrow otherwise on Saturday Still not yet ready to go to rehab today as the left knee pain has increased and he feels generally unwell with headache Will continue current medications and plan for discharge on Saturday Dizziness Could be secondary to lying in bed and also dehydration Will get orthostatic vitals He was advised to drink more fluid Continue PT OT and reevaluation- recommended rehab and he has been accepted to [facility] Denies any more dizziness No significant dizziness at rest Alcohol withdrawal Alcohol level 113.5 Monitor for withdrawal Continue gabapentin Ativan as needed Continue thiamine, folic acid, multivitamin Monitor for any withdrawal No signs and no symptoms of withdrawal Hyponatremia In the setting of alcohol abuse Normal TSH Sodium 132 today Received fluids Sodium level has been normalized Will check his labs again tomorrow Sodium level has been normalized UTI--POA Urine culture--Klebsiella, E. coli Continue IV Rocephin- antibiotic course is done Other chronic conditions Hypertension Hyperlipidemia H/O bladder cancer s/p surgery ongoing tobacco abuse Continue home medications as able Monitor blood pressure DVT pX: SCDs Heparin SQ CODE STATUS DNI DNR Disposition PT OT prior to discharge-recommended rehab Discharge on Saturday to [facility] Admission and Anticipated Discharge Date Admission Date: August 07, 2024 Subjective 08/11/2024 The patient was seen and examined in medical telemetry unit He has been complaining of more pain in the left knee and is status post injection in the right knee today that is 08/11/2024 Denies any other significant symptoms 08/12/2024 The patient was seen and examined in medical telemetry unit He complains today of some dizziness His pain seems to be reasonably controlled He will have more physical therapy and decision about disposition will be thereafter 08/13/2024 The patient was seen and examined in medical telemetry unit He has been generally weak and lethargic today and also complains of headache does not feel like going to [facility] today He does not have any more dizziness though 08/14/2024 The patient was seen and examined in medical telemetry unit He has been feeling more pain in the leg, headache and does not feel good to be discharged today Denies any chest pain, shortness of breath, denies any abdominal pain, nausea or vomiting 08/15/2024 The patient was seen and examined in medical telemetry unit He has not been feeling any better today and complains to have Increasing pain in the left knee, headache and generally unwell Review of Systems Review of Systems: All systems reviewed and are unremarkable except as noted below Physical Exam Physical Exam: Lying in bed without any acute distress Constitutional: well developed, well nourished, + ill appearing and average body habitus Eyes: PERRL, conjunctivae normal, anicteric sclerae ENMT: external ear and nose normal, oropharynx normal Neck: trachea midline, no thyromegaly Respiratory: no respiratory distress Auscultation: lungs clear to auscultation bilaterally Cardiovascular: Rate/Rhythm: regular rate and regular rhythm; not tachycardic Heart Sounds: normal S1 and normal S2; no murmur Extremities: no edema Gastrointestinal (Abdomen): Inspection/Auscultation: normal bowel sounds; abdomen not distended Percussion/Palpation: abdomen soft; abdomen nontender Neurologic: normal touch/pain/proprioception and moves all extremities; no focal motor deficits Psychiatric: A+Ox3, euthymic affect Lymphatic: no cervical or axillary lymphadenopathy Results & Data Results & Data Vital Signs (Past 12 Hours) Vital Signs Temp Pulse Pulse Resp BP Pulse Ox O2 Del Method 08/15/24 13:26 36.3 C L 59 L 18 112/67 93 Room Air 08/15/24 07:08 63 08/15/24 02:10 36.9 C 60 16 135/69 92 Room Air Laboratory Results Short CBC 08/15/24 Range/Units 07:58 WBC 11.29 H (4.8-10.8) K/ul Hgb 13.4 L (14.0-18.0) g/dl Hct 39.4 L (42.0-52.0) % Plt Count 315 (130-400) K/uL BMP 08/15/24 07:58 Sodium 135 L Potassium 4.4 Chloride 102 Carbon Dioxide 30 BUN 28 H Creatinine 1.17 Glucose 90 Calcium 9.0 Medications Administered Current Inpatient Medications Acetaminophen (Acetaminophen 500 Mg Tab) 500 mg PO Q6H PRN PRN Reason: fever/pain Stop: 09/06/24 22:29 Last Admin: 08/14/24 09:20 Dose: 500 mg Amlodipine Besylate (Amlodipine Besylate 5 Mg Tab) 5 mg PO DAILY ALEKSANDRA Stop: 09/07/24 08:59 Last Admin: 08/15/24 09:55 Dose: 5 mg Atenolol (Atenolol 50 Mg Tablet) 100 mg PO DAILY ALEKSANDRA Stop: 09/07/24 08:59 Last Admin: 08/15/24 09:55 Dose: 100 mg Atorvastatin Calcium (Atorvastatin 20 Mg Tab) 20 mg PO PM ALEKSANDRA Stop: 09/07/24 20:59 Last Admin: 08/14/24 20:43 Dose: 20 mg Baclofen (Baclofen 10 Mg Tab) 10 mg PO BID ALEKSANDRA Stop: 09/06/24 23:14 Last Admin: 08/15/24 10:55 Dose: 10 mg Clonazepam (Clonazepam 0.5 Mg Tab) 0.5 mg PO BID PRN PRN Reason: Anxiety Stop: 09/06/24 23:09 Last Admin: 08/14/24 20:44 Dose: 0.5 mg Folic Acid (Folic Acid 1 Mg Tab) 1 mg PO QAM ALEKSANDRA Stop: 09/07/24 08:59 Last Admin: 08/15/24 09:55 Dose: 1 mg Heparin Sodium (Porcine) (Heparin Sod 5,000 Unit/0.5 Ml Vial) 5,000 units SQ Q12 ALEKSANDRA Stop: 09/08/24 20:59 Last Admin: 08/15/24 09:55 Dose: 5,000 units Promethazine HCl (Phenergan) 6.25 mg in 50.25 mls @ 201 mls/hr IV Q6H PRN PRN Reason: Nausea And Vomiting Stop: 09/06/24 22:28 Lorazepam (Lorazepam 2 Mg/1 Ml Vial) 1 mg IV UD PRN; Protocol PRN Reason: EtOH Withdrawal AWSS Score 6,7 Stop: 09/06/24 23:07 Lorazepam (Lorazepam 2 Mg/1 Ml Vial) 2 mg IV UD PRN; Protocol PRN Reason: EtOH Withdrawal AWSS Score 8,9 Stop: 09/06/24 23:07 Last Admin: 08/07/24 23:19 Dose: 2 mg Lorazepam (Lorazepam 2 Mg/1 Ml Vial) 3 mg IV ONCE PRN; Protocol PRN Reason: EtOH Withdrawal AWSS Score 10+ Morphine Sulfate (Morphine Sulfate 4 Mg/Ml 1 Ml Carp\Vial) 2 mg IV Q4H PRN PRN Reason: Pain Stop: 08/21/24 23:08 Last Admin: 08/15/24 10:06 Dose: 2 mg Multivitamins (Multivitamin Tab) 1 tab PO QAM [facility] Stop: 09/07/24 08:59 Last Admin: 08/15/24 09:55 Dose: 1 tab Oxycodone HCl (Oxycodone Hcl Ir 5 Mg Tab (Immediate Release)) 5 - 10 mg PO QID PRN PRN Reason: Pain Stop: 08/21/24 22:31 Last Admin: 08/14/24 14:11 Dose: 5 mg Pantoprazole Sodium (Pantoprazole 40 Mg Tab) 40 mg PO DAILYBB [facility] Stop: 09/07/24 06:29 Last Admin: 08/15/24 05:31 Dose: 40 mg Thiamine HCl (Thiamine Hcl 100 Mg Tab) 100 mg PO QAM [facility] Stop: 09/07/24 08:59 Last Admin: 08/15/24 09:55 Dose: 100 mg Tizanidine HCl (Tizanidine Hcl 4 Mg Tablet) 4 mg PO BID ALEKSANDRA Stop: 09/07/24 08:59 Last Admin: 08/15/24 09:55 Dose: 4 mg Trazodone HCl (Trazodone Hcl 50 Mg Tab) 50 mg PO HS [facility] Stop: 09/06/24 23:14 Last Admin: 08/14/24 20:43 Dose: 50 mg
[2024-08-15 21:01] VITALS: RESP 18
--- NOTE | 2024-08-16 10:46 | Hospitalist Progress Note ---
Date of Service August 16, 2024 Assessment & Plan (1) Alcohol withdrawal: Plan: Fall at home while he was trying to pick a cigarette from the floor Subsequent left knee pain and the x-ray did show fracture of the left tibial plateau --Knee X ray:No displaced acute osseous process is identified. Small suprapatellar joint fluid. Moderate tricompartmental osteoarthritic changes. Likely chronic injury at the tibial tuberosity over the patella tendon attachment. Appreciate orthopedic input and recommendation Partial weightbearing on left leg with knee immobilization. Limited range of motion of the knee and okay to remove brace at rest for hygiene and follow-up with the Ortho in 1 month with x-ray Osteoarthritis of right knee status post steroid injection 08/11/2024 PT OT eval as able May need rehab placement Much better today and denies any significant pain Not yet ready to be discharged and awaiting more physical therapy and recommendation He has been stable today but complains to more weakness and headache without any other neurological symptoms He is not yet ready to be discharged today as he is having more pain in the left lower extremity, increasing headache and also mentally and physically not yet ready to be discharged with more weakness and tiredness He will be given symptomatic medication and will be observed today If he feels better may be going tomorrow otherwise on Saturday Still not yet ready to go to rehab today as the left knee pain has increased and he feels generally unwell with headache Will continue current medications and plan for discharge on Saturday has been stable and denies any significant pain and/or discomfort Will be discharged to [facility] tomorrow Dizziness Could be secondary to lying in bed and also dehydration Will get orthostatic vitals He was advised to drink more fluid Continue PT OT and reevaluation- recommended rehab and [facility] Denies any more dizziness No significant dizziness at rest Denies any more dizziness Alcohol withdrawal Alcohol level 113.5 Monitor for withdrawal Continue gabapentin Ativan as needed Continue thiamine, folic acid, multivitamin Monitor for any withdrawal No signs and no symptoms of withdrawal Will continue thiamine and folic acid on discharge Hyponatremia In the setting of alcohol abuse Normal TSH Sodium 132 today Received fluids Sodium level has been normalized Will check his labs again tomorrow Sodium level has been normalized UTI--POA Urine culture--Klebsiella, E. coli Continue IV Rocephin- antibiotic course is done Other chronic conditions Hypertension Hyperlipidemia H/O bladder cancer s/p surgery ongoing tobacco abuse Continue home medications as able Monitor blood pressure DVT pX: SCDs Heparin SQ CODE STATUS DNI DNR Disposition PT OT prior to discharge-recommended rehab Dis[facility] on [facility] Admission and Anticipated Discharge Date Admission Date: August 07, 2024 Subjective 08/11/2024 The patient was seen and examined in medical telemetry unit He has been complaining of more pain in the left knee and is status post injec tion in the right knee today that is 08/11/2024 Denies any other significant symptoms 08/12/2024 The patient was seen and examined in medical telemetry unit He complains today of some dizziness His pain seems to be reasonably controlled He will have more physical therapy and decision about disposition will be thereafter 08/13/2024 The patient was seen and examined in medical telemetry unit He has been generally weak and lethargic today and also complains of headache does not feel like going [facility] today He does not have any more dizziness though 08/14/2024 The patient was seen and examined in medical telemetry unit He has been feeling more pain in the leg, headache and does not feel good to be discharged today Denies any chest pain, shortness of breath, denies any abdominal pain, nausea or vomiting 08/15/2024 The patient was seen and examined in medical telemetry unit He has not been feeling any better today and complains to have Increasing pain in the left knee, headache and generally unwell 08/16/2024 The patient was seen and examined in medical telemetry unit He has been feeling much better today Still has minimal pain involving the left knee and headache Will be ready to go to [facility] tomorrow Review of Systems Review of Systems: All systems reviewed and are unremarkable except as noted below Physical Exam Physical Exam: Lying in bed without any acute distress Constitutional: well developed, well nourished, + ill appearing and average body habitus Eyes: PERRL, conjunctivae normal, anicteric sclerae ENMT: external ear and nose normal, oropharynx normal Neck: trachea midline, no thyromegaly Respiratory: no respiratory distress Auscultation: lungs clear to auscultation bilaterally Cardiovascular: Rate/Rhythm: regular rate and regular rhythm; not tachycardic Heart Sounds: normal S1 and normal S2; no murmur Extremities: no edema Gastrointestinal (Abdomen): Inspection/Auscultation: normal bowel sounds; abdomen not distended Percussion/Palpation: abdomen soft; abdomen nontender Neurologic: normal touch/pain/proprioception and moves all extremities; no focal motor deficits Psychiatric: A+Ox3, euthymic affect Lymphatic: no cervical or axillary lymphadenopathy Results & Data Results & Data Vital Signs (Past 12 Hours) Vital Signs Temp Pulse Pulse Resp BP Pulse Ox O2 Del Method 08/16/24 06:58 64 08/16/24 03:18 36.7 C 62 18 139/80 93 Room Air 08/15/24 23:24 36.7 C 62 18 124/72 94 Room Air Medications Administered Current Inpatient Medications Acetaminophen (Acetaminophen 500 Mg Tab) 500 mg PO Q6H PRN PRN Reason: fever/pain Stop: 09/06/24 22:29 Last Admin: 08/15/24 20:39 Dose: 500 mg Amlodipine Besylate (Amlodipine Besylate 5 Mg Tab) 5 mg PO DAILY ALEKSANDRA Stop: 09/07/24 08:59 Last Admin: 08/16/24 09:06 Dose: 5 mg Atenolol (Atenolol 50 Mg Tablet) 100 mg PO DAILY ALEKSANDRA Stop: 09/07/24 08:59 Last Admin: 08/16/24 09:06 Dose: 100 mg Atorvastatin Calcium (Atorvastatin 20 Mg Tab) 20 mg PO PM ALEKSANDRA Stop: 09/07/24 20:59 Last Admin: 08/15/24 20:39 Dose: 20 mg Baclofen (Baclofen 10 Mg Tab) 10 mg PO BID ALEKSANDRA Stop: 09/06/24 23:14 Last Admin: 08/16/24 09:06 Dose: 10 mg Clonazepam (Clonazepam 0.5 Mg Tab) 0.5 mg PO BID PRN PRN Reason: Anxiety Stop: 09/06/24 23:09 Last Admin: 08/15/24 20:39 Dose: 0.5 mg Folic Acid (Folic Acid 1 Mg Tab) 1 mg PO QAM ALEKSANDRA Stop: 09/07/24 08:59 Last Admin: 08/16/24 09:06 Dose: 1 mg Heparin Sodium (Porcine) (Heparin Sod 5,000 Unit/0.5 Ml Vial) 5,000 units SQ Q12 ALEKSANDRA Stop: 09/08/24 20:59 Last Admin: 08/16/24 09:06 Dose: 5,000 units Promethazine HCl (Phenergan) 6.25 mg in 50.25 mls @ 201 mls/hr IV Q6H PRN PRN Reason: Nausea And Vomiting Stop: 09/06/24 22:28 Lorazepam (Lorazepam 2 Mg/1 Ml Vial) 1 mg IV UD PRN; Protocol PRN Reason: EtOH Withdrawal AWSS Score 6,7 Stop: 09/06/24 23:07 Lorazepam (Lorazepam 2 Mg/1 Ml Vial) 2 mg IV UD PRN; Protocol PRN Reason: EtOH Withdrawal AWSS Score 8,9 Stop: 09/06/24 23:07 Last Admin: 08/07/24 23:19 Dose: 2 mg Lorazepam (Lorazepam 2 Mg/1 Ml Vial) 3 mg IV ONCE PRN; Protocol PRN Reason: EtOH Withdrawal AWSS Score 10+ Morphine Sulfate (Morphine Sulfate 4 Mg/Ml 1 Ml Carp\Vial) 2 mg IV Q4H PRN PRN Reason: Pain Stop: 08/21/24 23:08 Last Admin: 08/15/24 10:06 Dose: 2 mg Multivitamins (Multivitamin Tab) 1 tab PO QAM [facility] Stop: 09/07/24 08:59 Last Admin: 08/16/24 09:06 Dose: 1 tab Oxycodone HCl (Oxycodone Hcl Ir 5 Mg Tab (Immediate Release)) 5 - 10 mg PO QID PRN PRN Reason: Pain Stop: 08/21/24 22:31 Last Admin: 08/16/24 09:33 Dose: 10 mg Pantoprazole Sodium (Pantoprazole 40 Mg Tab) 40 mg PO DAILYBB [facility] Stop: 09/07/24 06:29 Last Admin: 08/16/24 05:43 Dose: 40 mg Thiamine HCl (Thiamine Hcl 100 Mg Tab) 100 mg PO QAM [facility] Stop: 09/07/24 08:59 Last Admin: 08/16/24 09:14 Dose: 100 mg Tizanidine HCl (Tizanidine Hcl 4 Mg Tablet) 4 mg PO BID ALEKSANDRA Stop: 09/07/24 08:59 Last Admin: 08/16/24 09:07 Dose: 4 mg Trazodone HCl (Trazodone Hcl 50 Mg Tab) 50 mg PO HS [facility] Stop: 09/06/24 23:14 Last Admin: 08/15/24 20:39 Dose: 50 mg
[2024-08-17 09:53] LABS: Basophils # (auto) 0.08 K/uL (0.00-0.20); Basophils % (auto) 0.7 %; Eosinophils # (auto) 0.35 K/uL (0.00-0.50); Eosinophils % (auto) 3.1 %; Hematocrit (blood only) 36.1 % (42.0-52.0); Hemoglobin 12.3 g/dl (14.0-18.0); Immature Granulocytes # (auto) 0.21 K/uL (0.01-0.20); Immature Granulocytes % (auto) 1.8 %; Lymphocytes # (auto) 2.15 K/uL (1.20-3.40); Lymphocytes % (auto) 18.9 %; Mean Corpuscular Hgb Conc 34.1 g/dL (32.0-36.0); Mean Corpuscular Volume 99.7 fL (80.0-100.0); Mean Platelet Volume 9.2 fL (9.4-12.4); Monocytes # (auto) 1.01 K/uL (0.11-0.59); Monocytes % (auto) 8.9 %; Neutrophils # (auto) 7.59 K/uL (1.40-6.50); Neutrophils % (auto) 66.6 %; Platelet Count 354 K/uL (130-400); RDW Coefficient of Variation 12.2 % (11.5-14.5); RDW Standard Deviation 45.1 fL (36.4-46.3); Red Blood Count 3.62 M/uL (4.70-6.10); White Blood Count 11.39 K/ul (4.8-10.8)
[2024-08-17 10:05] LABS: BUN Creatinine Ratio 21.4 (10-20); Calcium 8.8 mg/dl (8.6-10.3); Creatinine Clr Calc Pharmacy 38.1 ml/min; Potassium 4.7 mmol/L (3.5-5.1)
[2024-08-17] MEDS: SODIUM CHLORIDE 0.9% 500 ML IV ONE (10:33)
--- NOTE | 2024-08-17 11:20 | Hospitalist Progress Note ---
Date of Service August 17, 2024 Assessment & Plan (1) Alcohol withdrawal: Plan: Fall at home while he was trying to pick a cigarette from the floor Subsequent left knee pain and the x-ray did show fracture of the left tibial plateau --Knee X ray:No displaced acute osseous process is identified. Small suprapatellar joint fluid. Moderate tricompartmental osteoarthritic changes. Likely chronic injury at the tibial tuberosity over the patella tendon attachment. Appreciate orthopedic input and recommendation Partial weightbearing on left leg with knee immobilization. Limited range of motion of the knee and okay to remove brace at rest for hygiene and follow-up with the Ortho in 1 month with x-ray Osteoarthritis of right knee status post steroid injection 08/11/2024 PT OT eval as able May need rehab placement Much better today and denies any significant pain Not yet ready to be discharged and awaiting more physical therapy and recommendation He has been stable today but complains to more weakness and headache without any other neurological symptoms He is not yet ready to be discharged today as he is having more pain in the left lower extremity, increasing headache and also mentally and physically not yet ready to be discharged with more weakness and tiredness He will be given symptomatic medication and will be observed today If he feels better may be going tomorrow otherwise on Saturday Still not yet ready to go to rehab today as the left knee pain has increased and he feels generally unwell with headache Will continue current medications and plan for discharge on Saturday has been stable and denies any significant pain and/or discomfort Will be discharged to [facility] tomorrow His pain is controlled and remains free from any significant symptoms Hypotension Noted to have hypotension this morning BUN and creatinine are minimally elevated likely secondary to dehydration Also received blood pressure medications and pain medicine -contributing Will give a bolus of 500 mL of normal saline and repeat the blood pressure If pressure remains more than 100 he will be going to [facility] this afternoon Dizziness Could be secondary to lying in bed and also dehydration Will get orthostatic vitals He was advised to drink more fluid Continue PT OT and reevaluation- recommended rehab and he has been accepted to [facility] Denies any more dizziness No significant dizziness at rest Denies any more dizziness Alcohol withdrawal Alcohol level 113.5 Monitor for withdrawal Continue gabapentin Ativan as needed Continue thiamine, folic acid, multivitamin Monitor for any withdrawal No signs and no symptoms of withdrawal Will continue thiamine and folic acid on discharge Hyponatremia In the setting of alcohol abuse Normal TSH Sodium 132 today Received fluids Sodium level has been normalized Will check his labs again tomorrow Sodium level has been normalized UTI--POA Urine culture--Klebsiella, E. coli Continue IV Rocephin- antibiotic course is done Other chronic conditions Hypertension Hyperlipidemia H/O bladder cancer s/p surgery ongoing tobacco abuse Continue home medications as able Monitor blood pressure DVT pX: SCDs Heparin SQ CODE STATUS DNI DNR Disposition PT OT prior to discharge-recommended rehab Discharge on Saturday to [facility] Admission and Anticipated Discharge Date Admission Date: August 07, 2024 Subjective 08/11/2024 The patient was seen and examined in medical telemetry unit He has been complaining of more pain in the left knee and is status post injection in the right knee today that is 08/11/2024 Denies any other significant symptoms 08/12/2024 The patient was seen and examined in medical telemetry unit He complains today of some dizziness His pain seems to be reasonably controlled He will have more physical therapy and decision about disposition will be thereafter 08/13/2024 The patient was seen and examined in medical telemetry unit He has been generally weak and lethargic today and also complains of headache does not feel like going to [facility] today He does not have any more dizziness though 08/14/2024 The patient was seen and examined in medical telemetry unit He has been feeling more pain in the leg, headache and does not feel good to be discharged today Denies any chest pain, shortness of breath, denies any abdominal pain, nausea or vomiting 08/15/2024 The patient was seen and examined in medical telemetry unit He has not been feeling any better today and complains to have Increasing pain in the left knee, headache and generally unwell 08/16/2024 The patient was seen and examined in medical telemetry unit He has been feeling much better today Still has minimal pain involving the left knee and headache Will be ready to go to [facility] tomorrow 08/17/2024 The patient was seen and examined in medical telemetry unit He was noted to have low blood pressure this morning systolic 90s and complained of some headache No fever no chills No other significant symptoms and he will be going to [facility] this afternoon Review of Systems Review of Systems: All systems reviewed and are unremarkable except as noted below Physical Exam Physical Exam: Lying in bed without any acute distress Constitutional: well developed, well nourished, + ill appearing and average body habitus Eyes: PERRL, conjunctivae normal, anicteric sclerae ENMT: external ear and nose normal, oropharynx normal Neck: trachea midline, no thyromegaly Respiratory: no respiratory distress Auscultation: lungs clear to aus cultation bilaterally Cardiovascular: Rate/Rhythm: regular rate and regular rhythm; not tachycardic Heart Sounds: normal S1 and normal S2; no murmur Extremities: no edema Gastrointestinal (Abdomen): Inspection/Auscultation: normal bowel sounds; abdomen not distended Percussion/Palpation: abdomen soft; abdomen nontender Neurologic: normal touch/pain/proprioception and moves all extremities; no focal motor deficits Psychiatric: A+Ox3, euthymic affect Lymphatic: no cervical or axillary lymphadenopathy Results & Data Results & Data Vital Signs (Past 12 Hours) Vital Signs Temp Pulse Pulse Resp BP BP Pulse Ox 08/17/24 10:18 91/56 L 94 08/17/24 09:17 94/55 L 84/55 L 94 08/17/24 08:09 08/17/24 07:38 36.7 C 63 18 169/79 H 94 08/17/24 07:21 57 L 08/17/24 04:57 36.8 C 61 18 166/90 H 93 08/17/24 00:13 36.8 C 61 18 91/50 L 93 O2 Del Method 08/17/24 10:18 Room Air 08/17/24 09:17 Room Air 08/17/24 08:09 Room Air 08/17/24 07:38 Room Air 08/17/24 07:21 08/17/24 04:57 Room Air 08/17/24 00:13 Room Air Laboratory Results Short CBC 08/17/24 Range/Units 09:32 WBC 11.39 H (4.8-10.8) K/ul Hgb 12.3 L (14.0-18.0) g/dl Hct 36.1 L (42.0-52.0) % Plt Count 354 (130-400) K/uL BMP 08/17/24 09:32 Sodium 133 L Potassium 4.7 Chloride 102 Carbon Dioxide 28 BUN 34 H Creatinine 1.59 H Glucose 141 H Calcium 8.8 Medications Administered Current Inpatient Medications Acetaminophen (Acetaminophen 500 Mg Tab) 500 mg PO Q6H PRN PRN Reason: fever/pain Stop: 09/06/24 22:29 Last Admin: 08/17/24 09:26 Dose: 500 mg Amlodipine Besylate (Amlodipine Besylate 5 Mg Tab) 5 mg PO DAILY ALEKSANDRA Stop: 09/07/24 08:59 Last Admin: 08/17/24 08:00 Dose: 5 mg Atenolol (Atenolol 50 Mg Tablet) 100 mg PO DAILY ALEKSANDRA Stop: 09/07/24 08:59 Last Admin: 08/17/24 08:00 Dose: 100 mg Atorvastatin Calcium (Atorvastatin 20 Mg Tab) 20 mg PO PM ALEKSANDRA Stop: 09/07/24 20:59 Last Admin: 08/16/24 20:58 Dose: 20 mg Baclofen (Baclofen 10 Mg Tab) 10 mg PO BID [facility] Stop: 09/06/24 23:14 Last Admin: 08/17/24 08:07 Dose: 10 mg Clonazepam (Clonazepam 0.5 Mg Tab) 0.5 mg PO BID PRN PRN Reason: Anxiety Stop: 09/06/24 23:09 Last Admin: 08/16/24 20:58 Dose: 0.5 mg Folic Acid (Folic Acid 1 Mg Tab) 1 mg PO QAM ALEKSANDRA Stop: 09/07/24 08:59 Last Admin: 08/17/24 08:00 Dose: 1 mg Heparin Sodium (Porcine) (Heparin Sod 5,000 Unit/0.5 Ml Vial) 5,000 units SQ Q12 ALEKSANDRA Stop: 09/08/24 20:59 Last Admin: 08/17/24 08:00 Dose: 5,000 units Promethazine HCl (Phenergan) 6.25 mg in 50.25 mls @ 201 mls/hr IV Q6H PRN PRN Reason: Nausea And Vomiting Stop: 09/06/24 22:28 Lorazepam (Lorazepam 2 Mg/1 Ml Vial) 1 mg IV UD PRN; Protocol PRN Reason: EtOH Withdrawal AWSS Score 6,7 Stop: 09/06/24 23:07 Lorazepam (Lorazepam 2 Mg/1 Ml Vial) 2 mg IV UD PRN; Protocol PRN Reason: EtOH Withdrawal AWSS Score 8,9 Stop: 09/06/24 23:07 Last Admin: 08/07/24 23:19 Dose: 2 mg Lorazepam (Lorazepam 2 Mg/1 Ml Vial) 3 mg IV ONCE PRN; Protocol PRN Reason: EtOH Withdrawal AWSS Score 10+ Morphine Sulfate (Morphine Sulfate 4 Mg/Ml 1 Ml Carp\Vial) 2 mg IV Q4H PRN PRN Reason: Pain Stop: 08/21/24 23:08 Last Admin: 08/15/24 10:06 Dose: 2 mg Multivitamins (Multivitamin Tab) 1 tab PO QAM ALEKSANDRA Stop: 09/07/24 08:59 Last Admin: 08/17/24 08:01 Dose: 1 tab Oxycodone HCl (Oxycodone Hcl Ir 5 Mg Tab (Immediate Release)) 5 - 10 mg PO QID PRN PRN Reason: Pain Stop: 08/21/24 22:31 Last Admin: 08/17/24 08:07 Dose: 10 mg Pantoprazole Sodium (Pantoprazole 40 Mg Tab) 40 mg PO DAILYBB ALEKSANDRA Stop: 09/07/24 06:29 Last Admin: 08/17/24 05:29 Dose: 40 mg Thiamine HCl (Thiamine Hcl 100 Mg Tab) 100 mg PO QAM ALEKSANDRA Stop: 09/07/24 08:59 Last Admin: 08/17/24 08:01 Dose: 100 mg Tizanidine HCl (Tizanidine Hcl 4 Mg Tablet) 4 mg PO BID ALEKSANDRA Stop: 09/07/24 08:59 Last Admin: 08/17/24 08:00 Dose: 4 mg Trazodone HCl (Trazodone Hcl 50 Mg Tab) 50 mg PO HS ALEKSANDRA Stop: 09/06/24 23:14 Last Admin: 08/16/24 20:58 Dose: 50 mg
[2024-08-17 11:41] VITALS: BP 101/53; PULSE 55; TEMP 97.9; O2SAT 95
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
== END 2024-08-17 13:01 | DRG 897 ==
LOC: ED 18:52 → SUATTDRO 23:07 → EDINP 23:07 → 2N 08-08 00:44

== ENCOUNTER 2024-09-04 23:28 | Inpatient (IN) ==
--- OUTSIDE RECORDS SUMMARY | 2024-09-04 23:34 | External Medical Summary | Summary of Care ---
Author Name Unknown Organization [facility] Address [address] [place] [address] Phone [phone] Care Team Providers Care Chief Of Anesthesiology Name Role Phone Demarco Guallpa MD Primary Care Provider Reason for Visit * Reason Onset Date Comments Advice 08/21/2024 Encounter Details Date Type Department Care Team (Late st Contact Info) Description 08/21/2024 Telephone [facility] [address] [place] [address] Demarco Guallpa MD [address], [place] [id number] Advice Allergies Active Allergy Reactions Criticality Noted Date Comments Meclizine Hcl 12/29/2014 Throat swelling and tongue swelling Aspirin 03/05/2016 documented as of this encounter (statuses as of 08/21/2024) Medications ferrous sulfate (FEOSOL) 325 (65 FE) [...] Information Patient not taking.Reported on 06/04/2022 Nystatin [id number] UNIT/GM External Cream Apply 1 g topically [...] BEDTIME 180 Tablet 1 05/10/19 24 Active Atorvastatin Calcium 20 MG Oral [...] Oral Capsule Take 1 Capsule by mouth 2 times a day in the morning and at bedtime. 180 Capsule 08/14/19 25 Active amLODIPine Besylate 5 MG Oral Tablet (Norvasc) TAKE 1 TABLET BY MOUTH EVERY DAY IN THE MORNING 90 Tablet 08/22/19 25 Active documented as of this encounter (statuses as of 08/21/2024) Active Problems Problem Noted Date Diagnosed Date [...] as of this encounter (statuses as of 08/21/2024) Resolved Problems Problem Noted Date Diagnosed Date Resolved Date Kidney disease, chronic, sta ge III (GFR 30-59 ml/min) 04/14/2018 03/17/2020 Overview: Per CKD protocol #1 ADVANCE DIRECTIVE INFORMATION 12/31/2005 03/09/2024 Overview (12/31/2005): No, Advance Directive brochure given to patient at prior appointment. PURE HYPERCHOLESTEROLEM 01/06/199804/05 Overview (04/14/2009): Per Lipid Taxonomy. 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 Advised pt would need an appointment first. * Telephone Encounter - Ela Goodwin OSA - 08/21/2024 4:19 PM EDT Reason for patient's call: Diane from [employer] requesting to speak to a nurse in reference to patient. Caller was transferred to Carie at the nurse line. documented in this encounter Plan of Treatment Upcoming Encounters Date Type Department Care Team (Late st Contact Info) Description 10/05/2024 8:20 AM EDT Office Visit [facility] [place] [address] [id number] Demarco Guallpa MD [address] [facility] [address] [id number] Health Maintenance Due Date Last Done Comments Zoster Vaccines (1 of 2) 12/10/1991 Adult Wellness Visit 12/10/2007 Depression Screening 04/02/2019 04/02/2018 Albumin/Creatinine Ratio 12/10/2020 12/11/2019 CKD PHOS USE SMARTSET 48679 12/28/202312/05, 12/20/2020, 12/11/2019 DTap/Tdap Vaccines (2 - Td or Tdap) 05/21/2024 05/21/2014, 11/21/2000, 05/06/1992 COVID-19 Vaccine (2 - season) 2024 03/04/2024 GFR 02/19/2025 08/20/2024, 08/04, 03/01/2023, Additional history exists CKD HGB USE SMARTSET 04835 08/18/202508/18, 03/01/2023, 03/01/2023, Additional history exists Colonoscopy 01/02/2026 01/02/2023, 03/06, 03/15/2016, Additional history [...] Documents on File Type Date Recorded Patient [employer] Expl anation Advance Directives and Living Will 07/20/2016 LIVING WILL DECLARAT ION - LIVING WILL Care Teams Chief Of Anesthesiology Relationship Specialty Start Date End Date Demarco Guallpa MD PCP - General 06/16/02 documented as of this encounter
--- OUTSIDE RECORDS SUMMARY | 2024-09-04 23:34 | External Medical Summary | Summary of Care ---
Author Name Unknown Organization [facility] Address [address] [place] [place] [address] Phone [phone] Care Team Providers Care Distribution Designer Name Role Phone Demarco Guallpa MD Primary Care Provider Reason for Visit * Reason Onset Date Comments Advice 08/28/2024 Encounter Details Date Type Department Care Team (Late st Contact Info) Description 08/28/2024 Telephone [facility] [address] [facility] [place] [address] Demarco Guallpa MD [address] [place], [place] [phone] Advice Allergies Active Allergy Reactions Criticality Noted Date Comments Meclizine Hcl 12/29/2014 Throat swelling and tongue swelling Aspirin 03/05/2016 documented as of this encounter (statuses as of 09/03/2024) Medications ferrous sulfate (FEOSOL) 325 (65 FE) [...] Information Patient not taking.Reported on 06/04/2022 Nystatin 547106 UNIT/GM External Cream Apply 1 g topically [...] as of this encounter (statuses as of 09/03/2024) Active Problems Problem Noted Date Diagnosed Date [...] as of this encounter (statuses as of 09/03/2024) Resolved Problems Problem Noted Date Diagnosed Date Resolved Date Kidney disease, chronic, sta ge III (GFR 30-59 ml/min) 04/14/2018 03/17/2020 Overview: Per CKD protocol #1 ADVANCE DIRECTIVE INFORMATION 12/31/2005 03/09/2024 Overview (12/31/2005): No, Advance Directive brochure given to patient at prior appointment. PURE HYPERCHOLESTEROLEM 01/06/199804/05 Overview (04/14/2009): Per Lipid Taxonomy. ALCOHOL ABUSE-CONTINUOUS documented as of this encounter (statuses as of 09/03/2024) Immunizations Name Administration Dates Next Due COVID-19, [...] encounter Miscellaneous Notes * Telephone Encounter - Dax Cortez LPN - 09/03/2024 1:15 PM EDT The phone rang for 2-3 minutes and then stated the call can't be completed at this time. I left a message for Nadeem to call back to let him know that we can't reach Shelia. Did not send unable to contact letter because it was a call from Nitesh * Telephone Encounter - Angelic Hines LPN - 09/02/2024 1:57 PM EDT Attempted to call Shelia from . No answer-line rang as busy. * Telephone Encounter - Angelic Hines LPN - 08/28/2024 2:04 PM EDT Attempted to call Shelia from . No answer-line rang as busy. * Telephone Encounter - Adriano Lemon OSA - 08/28/2024 12:08 PM EDT Shelia from [facility] wants to update about plan of care. She wants to get plan of care approval. Please advise documented in this encounter Plan of Treatment Upcoming Encounters Date Type Department Care Team (Late st Contact Info) Description 10/05/2024 8:20 AM EDT Office Visit [facility] [place] [address] [phone] Demarco Guallpa MD [address] [phone] Health Maintenance Due Date Last Done Comments Zoster Vaccines (1 of 2) 12/10/1991 Adult Wellness Visit 12/10/2007 Depression Screening 04/02/2019 04/02/2018 Albumin/Creatinine Ratio 12/10/2020 12/11/2019 CKD PHOS USE SMARTSET 80515 12/28/202312/05, 12/20/2020, 12/11/2019 DTap/Tdap Vaccines (2 - Td or Tdap) 05/21/2024 05/21/2014, 11/21/2000, 05/06/1992 COVID-19 Vaccine ( season) 2024 03/04/2024 GFR 02/24/2025 08/25/2024, 08/04, 08/18/2024, Additional history exists CKD HGB USE SMARTSET 40330 08/25/202508/25, 08/18/2024, 03/01/2023, Additional history exists Colonoscopy 01/02/2026 01/02/2023, [...] Documents on File Type Date Recorded 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
--- OUTSIDE RECORDS SUMMARY | 2024-09-04 23:34 | External Medical Summary ---
Author Name Unknown Address Unknown Organization [facility] [place] [address] Laboratory Report Ordering Provider Test Date Status LOREN LOPEZ 08/20/2024 05:21:41 Final Observation Date Value Abnormality Reference (Units ) Status BUN 08/20/2024 05:21:41 22 Above high normal 6-20 (mg/dL) Final Creatinine 08/20/2024 05:21:41 1.2 0.6-1.2 (mg/dL) Final Glomerular filtration rate/1.73 sq M.predicted [Volume Rate/Area] in Serum, Plasma or Blood by Creatinine-based formula (CKD-EPI) 08/20/2024 05:21:41 60 >=60 (mL/min) Final eGFR is calculated based on the CKD-EPI 2020 equation. Sodium 08/20/2024 05:21:41 137 135-146 (m mol/L) Final Potassium 08/20/2024 05:21:41 5.1 3.5-5.1 (m mol/L) Final Cl 08/20/2024 05:21:41 100 98-107 (mm ol/L) Final CO2 08/20/2024 05:21:41 27 22-32 (mmo l/L) Final Anion gap 08/20/2024 05:21:41 10 7-15 (mmol /L) Final Glucose 08/20/2024 05:21:41 88 70-120 (mg /dL) Final Calcium 08/20/2024 05:21:41 9.5 8.4-10.2 ( mg/dL) Final Performing Location [facility] [place] [address]
--- OUTSIDE RECORDS SUMMARY | 2024-09-04 23:34 | External Medical Summary | Summary of Care ---
Author Name Unknown Organization [facility] Address [address] [facility] [place] [address] Phone [phone] Care Team Providers Care Service Attendant Name Role Phone Tarah Guallpa MD Primary Care Provider [phone] Reason for Visit * Reason Onset Date Comments Medication Refill 08/13/2024 Encounter Details Date Type Department Care Team (Late st Contact Info) Description 08/13/2024 [facility] [address] [facility] [address] [phone] Tarah Guallpa MD [address] [facility] [place] [id number] Allergies Active Allergy Reactions Criticality Noted Date Comments Meclizine Hcl 12/29/2014 Throat swelling and tongue swelling Aspirin 03/05/2016 documented as of this encounter (statuses as of 08/13/2024) Medications ferrous sulfate (FEOSOL) 325 (65 FE) [...] Information Patient not taking.Reported on 06/04/2022 Nystatin 178485 UNIT/GM External Cream Apply 1 g topically [...] at bedtime. 180 Capsule 08/14/19 25 Active tiZANidine HCl 4 MG Oral Capsule TAKE 1 CAPSULE BY MOUTH IN THE MORNING AND IN THE EVENING 60 Capsule 2 07/21/19 25 025 Discontin ued(Refil l) documented as of this encounter (statuses as of 08/13/2024) Active Problems Problem Noted Date Diagnosed Date [...] as of this encounter (statuses as of 08/13/2024) Resolved Problems Problem Noted Date Diagnosed Date Resolved Date Kidney disease, chronic, sta ge III (GFR 30-59 ml/min) 04/14/2018 03/17/2020 Overview: Per CKD protocol #1 ADVANCE DIRECTIVE INFORMATION 12/31/2005 03/09/2024 Overview (12/31/2005): No, Advance Directive brochure given to patient at prior appointment. PURE HYPERCHOLESTEROLEM 01/06/199804/05 Overview (04/14/2009): Per Lipid Taxonomy. 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 Authorizing Provider: TARAH GUALLPA * Telephone Encounter - Thomas Pearson OSA - 08/13/2024 11:58 AM EDT Did you pend patient's preferred pharmacy and medication before forwarding?yes Pharmacy: [id number] [address] [facility] Pending Prescriptions: Disp Refills tiZANidine HCl 4 MG Oral Capsule 180 Ca*0 Sig: Take 1 Capsule by mouth 2 times a day in the morning and at bedtime. Last Visit: Visit date not found (in office), Visit date not found (telemedicine) Next Visit: 10/05/2024 If no future appointments scheduled, and last appointment is greater than a year ago, please schedule patient for a follow-up appointment Last date the medication was ordered: 07/20/24 Is this request for a controlled substance?No Urine Drug Screen:No results found for this [...] 08:41 AM ALT 21 12/11/2019 02:28 PM documented in this encounter Plan of Treatment Upcoming Encounters Date Type Department Care Team (Late st Contact Info) Description 10/05/2024 8:20 AM EDT Office Visit [facility]ae[facility] [address] [phone] Tarah Guallpa MD [address] [facility] [address] [phone] Health Maintenance Due Date Last Done Comments Zoster Vaccines (1 of 2) 12/10/1991 Adult Wellness Visit 12/10/2007 Depression Screening 04/02/2019 04/02/2018 Albumin/Creatinine Ratio 12/10/2020 12/11/2019 GFR 08/31/2023 03/01/2023, 10/2022, 12/27/2022, Additional history exists CKD PHOS USE SMARTSET 65351 12/28/202312/05, 12/20/2020, 12/11/2019 CKD HGB USE SMARTSET 78738 03/01/202403/01, 03/01/2023, 01/09/2023, Additional history exists DTap/Tdap [...] Documents on File Type Date Recorded 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
--- OUTSIDE RECORDS SUMMARY | 2024-09-04 23:34 | External Medical Summary ---
Author Name Unknown Address Unknown Organization [facility] [place] [address] Laboratory Report Ordering Provider Test Date Status JD STUART 08/18/2024 05:32:00 Final Observation Date Value Abnormality Reference (Units ) Status WBC, Total 08/18/2024 05:32:00 12.00 Above high normal 4 .00-10.80 (K/uL) Final RBC 08/18/2024 05:32:00 4.08 4.50-5.25 (M/uL) Final Hemoglobin 08/18/2024 05:32:00 13.8 Below low normal 14 .0-16.8 (g/dL) Final HCT 08/18/2024 05:32:00 41.9 40.0-48.4 (%) Final MCV 08/18/2024 05:32:00 102.7 82.0-99.5 (fL) Final MCH 08/18/2024 05:32:00 33.8 27.0-34.0 (pg) Final MCHC 08/18/2024 05:32:00 32.9 32.0-36.0 (g/dL) Final RDW 08/18/2024 05:32:00 12.4 11.5-15.5 (%) Final Platelets 08/18/2024 05:32:00 395 140-400 (K /uL) Final MPV 08/18/2024 05:32:00 9.8 6.6-11.1 ( fL) Final Performing Location [facility] [place] [address]
--- OUTSIDE RECORDS SUMMARY | 2024-09-04 23:34 | External Medical Summary | Summary of Care ---
Author Name Unknown Organization [facility] Address [address] [facility] [place] [address] Phone [phone] Care Team Providers Care Director Industrial Museum Name Role Phone Tarah Guallpa MD Primary Care Provider [phone] Reason for Visit * Reason Comments eRx-Medication Refill Encounter Details Date Type Department Care Team (Late st Contact Info) Description 08/20/2024 Refill [facility] [address] [place] [phone] Tarah Guallpa MD [address] [place], [place] [phone] Allergies Active Allergy Reactions Criticality Noted Date [...] Information Patient not taking.Reported on 06/04/2022 Nystatin 794905 UNIT/GM External Cream Apply 1 g topically [...] BEFORE BEDTIME 180 Tablet 1 024 Active Atorvastatin Calcium 20 MG Oral [...] the morning and at bedtime. 180 Capsule 025 Active amLODIPine Besylate 5 MG Oral Tablet (Norvasc) TAKE 1 TABLET BY MOUTH EVERY DAY IN THE MORNING 90 Tablet 025 Active amLODIPine Besylate 5 MG Oral Tablet (Norvasc) Take 1 Tablet by mouth in the morning. 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 Zero additional refills given until upcoming appt. 10/05/2024 Cierra Finn PharmD Clinical Pharmacist [facility] [phone] 08/21/2024, 8:22 AM documented in this encounter Plan of Treatment Upcoming Encounters Date Type Department Care Team (Late st Contact Info) Description 10/05/2024 8:20 AM EDT Office [facility] [address] [facility] [phone] Tarah Guallpa MD [address] [facility] [address] [phone] Health Maintenance Due Date Last Done Comments Zoster Vaccines (1 of 2) 12/10/1991 Adult Wellness Visit 12/10/2007 Depression Screening 04/02/2019 04/02/2018 Albumin/Creatinine Ratio 12/10/2020 12/11/2019 CKD PHOS USE SMARTSET 27882 12/28/202312/05, 12/20/2020, 12/11/2019 DTap/Tdap Vaccines (2 - Td or Tdap) 05/21/2024 05/21/2014, 11/21/2000, 05/06/1992 COVID-19 Vaccine (2 - season) 2024 03/04/2024 GFR 02/19/2025 08/20/2024, 08/04, 03/01/2023, Additional history exists CKD HGB USE SMARTSET 63036 08/18/202508/18, 03/01/2023, 03/01/2023, Additional history exists Colonoscopy [...] Documents on File Type Date Recorded Patient Periodontist Expl anation Advance Directives and Living Will 07/20/2016 LIVING WILL DECLARAT ION - LIVING WILL Care Teams Director Industrial Museum Relationship Specialty Start Date End Date Tarah Guallpa MD PCP - General 06/16/02 documented as of this encounter
--- OUTSIDE RECORDS SUMMARY | 2024-09-04 23:34 | External Medical Summary ---
Author Name Unknown Address Unknown Organization [facility] [place] [place] [address] Laboratory Report Ordering Provider Test Date Status JD STUART 08/25/2024 05:32:24 Final Observation Date Value Abnormality Reference (Units ) Status BUN 08/25/2024 05:32:24 19 6-20 (mg/dL) Final Creatinine 08/25/2024 05:32:24 1.3 Above high normal 0.6-1.2 (mg/dL) Final Glomerular filtration rate/1.73 sq M.predicted [Volume Rate/Area] in Serum, Plasma or Blood by Creatinine-based formula (CKD-EPI) 08/25/2024 05:32:24 57 Below low normal >=60 (mL/min) Final eGFR is calculated based on the CKD-EPI 2020 equation. Sodium 08/25/2024 05:32:24 134 Below low normal 135 -146 (mmol/L) Final Potassium 08/25/2024 05:32:24 4.8 3.5-5.1 (m mol/L) Final Cl 08/25/2024 05:32:24 98 98-107 (mm ol/L) Final CO2 08/25/2024 05:32:24 26 22-32 (mmo l/L) Final Anion gap 08/25/2024 05:32:24 10 7-15 (mmol /L) Final Glucose 08/25/2024 05:32:24 88 70-120 (mg /dL) Final Calcium 08/25/2024 05:32:24 9.6 8.4-10.2 ( mg/dL) Final Performing Location [facility] [place] [address]
--- OUTSIDE RECORDS SUMMARY | 2024-09-04 23:34 | External Medical Summary ---
Author Name Unknown Address Unknown Organization [facility] [place] [address] Laboratory Report Ordering Provider Test Date Status JD STUART 08/25/2024 05:32:24 Final Observation Date Value Abnormality Reference (Units ) Status WBC, Total 08/25/2024 05:32:24 11.05 Above high normal 4 .00-10.80 (K/uL) Final RBC 08/25/2024 05:32:24 4.23 4.50-5.25 (M/uL) Final Hemoglobin 08/25/2024 05:32:24 14.2 14.0-16.8 (g/dL) Final HCT 08/25/2024 05:32:24 43.5 40.0-48.4 (%) Final MCV 08/25/2024 05:32:24 102.8 82.0-99.5 (fL) Final MCH 08/25/2024 05:32:24 33.6 27.0-34.0 (pg) Final MCHC 08/25/2024 05:32:24 32.6 32.0-36.0 (g/dL) Final RDW 08/25/2024 05:32:24 12.2 11.5-15.5 (%) Final Platelets 08/25/2024 05:32:24 386 140-400 (K /uL) Final MPV 08/25/2024 05:32:24 10.1 6.6-11.1 ( fL) Final Performing Location [facility] [place] [address]
--- OUTSIDE RECORDS SUMMARY | 2024-09-04 23:34 | External Medical Summary ---
Author Name Unknown Address Unknown Organization [facility] [place] [address] Laboratory Report Ordering Provider Test Date Status JD STUART 08/18/2024 05:32:00 Final Observation Date Value Abnormality Reference (Units ) Status BUN 08/18/2024 05:32:00 27 Above high normal 6-20 (mg/dL) Final Creatinine 08/18/2024 05:32:00 1.3 Above high normal 0.6-1.2 (mg/dL) Final Glomerular filtration rate/1.73 sq M.predicted [Volume Rate/Area] in Serum, Plasma or Blood by Creatinine-based formula (CKD-EPI) 08/18/2024 05:32:00 56 Below low normal >=60 (mL/min) Final eGFR is calculated based on the CKD-EPI 2020 equation. Sodium 08/18/2024 05:32:00 138 135-146 (m mol/L) Final Potassium 08/18/2024 05:32:00 5.1 3.5-5.1 (m mol/L) Final Cl 08/18/2024 05:32:00 101 98-107 (mm ol/L) Final CO2 08/18/2024 05:32:00 27 22-32 (mmo l/L) Final Anion gap 08/18/2024 05:32:00 10 7-15 (mmol /L) Final Glucose 08/18/2024 05:32:00 80 70-120 (mg /dL) Final Calcium 08/18/2024 05:32:00 9.5 8.4-10.2 ( mg/dL) Final Performing Location [facility] [place] [place] [address]
[2024-09-05] MEDS: SODIUM CHLORIDE 0.9% 1,000 ML IV ONE (00:10)
--- NOTE | 2024-09-05 00:10 | Emergency Department Note ---
Impression & Plan Hyponatremia, Alcohol abuse with intoxication, Left leg pain ED Provider Note Name: EM CONCEPCION Age: 83 Sex: Male Arrives Via: Ambulance Informant: Patient ED Provider: Tarik Chambers MD Chief Complaint: Left leg pain Impression: As per impressions above Medical Decision Makin-year-old alcoholic male arrives for evaluation of left leg pain. He had a tibial plateau fracture a few weeks ago has been in rehab and home for the last few days. Notes worsening left leg pain. On removing splint it is noted to be a bit edematous with some indents from the splint. An ultrasound was ordered. Patient also then complained of some weakness and fatigue. Laboratory workup obtained. This reveals significant hyponatremia. Patient is also intoxicated at this time. Ultrasound is unremarkable. Hospitalist consulted for further management. Triage/Nursing Notes reviewed by Me External Chart Review by me: Reviewed recent hospitalization records including discharge summary of 08/18/2024 discussing his recent hospitalization. Differential:Infection, dehydration, metabolic abnormality, hypo/hyperglycemia, electrolyte disturbance, anemia, hypoxia, cardiac sources, intracerebral event, toxicologic, neurologic, as well as other pathologies. Vital Signs: reviewed and remarkable for mild hypotension on arrival improved with normal saline bolus Interventions: Normal saline bolus 1 L IV, thiamine IV Labs:ED labs Reviewed by me and remarkable for no significant abnormalities Imaging:Ultrasound of the left leg Doppler as per radiology no DVT appreciated. EKG:As per my interpretation. Indication weakness. Normal sinus rhythm at 61 bpm QTc of 410. There is no ectopy nor ischemia. When compared to EKG of 08/15/2024 no significant change. Cardiac/Tele Monitoring: Cardiac Monitoring: An Order was placed for continuous cardiac monitoring. The monitor shows a rate of 60 with a normal sinus rhythm. Consults:Discussed with hospitalist who will further evaluate the patient. Plan: Disposition:Hospitalization. Condition: Good History of Present Illness: 83-year-old gentleman arrives for evaluation of leg pain. Patient broke his left knee several weeks ago. He admitted in rehab and has since been at home. Patient admits to drinking darvin stripe beers all day long. States he has been trying to readjust the splint though continues to have pain. A home health nurse arrived today and readjusted the splint without improvement. He was noted to have swelling in the leg which is new. Patient denies any shortness of breath or chest pain. He states he is feeling very weak and tired. Per EMS he was pretty unresponsive and confused initially but he is returned to his normal baseline. Denies any headache neck pain or other concerning signs or symptoms. Patient denies any falls or trauma since the injury a few weeks ago. Past Medical History:See Below Home Medications:See Below Allergies:See Below Vitals:Blood Pressure: 90/58, Pulse 63, RR 18, T 36.5C, O2 98% on RA Physical Exam: GENERAL: Patient is chronically unwell and unkempt appearing and in minimal distress. Dehydrated with dry mucous membranes RESPIRATORY: No dyspnea. Clear to auscultation and equal bilaterally. CARDIOVASCULAR: Regular rate and rhythm.No murmur appreciated. GASTROINTESTINAL: Abdomen soft, non-tender, no peritonitis. EXTREMITIES: Left leg is in a soft knee immobilizer. After removing this it is noted a fair amount of edema with deep furrows from the splint NEUROLOGIC: Alert and oriented. No focal neurologic deficits appreciated SKIN: No rash, no jaundice, no diaphoresis. PSYCH: Moderately intoxicated and smells heavily of alcohol. GCS: 15 ED Course: Times/Reassessments: Patient's blood pressure a bit on the low side on arrival. This resolved with initial fluid bolus. I do not feel he is in septic shock Tarik Chambers MD Past Med/Surg History Problem List (Updated 09/05/24 @ 06:11 by Tarik Chambers MD) Left leg pain (Acute) Right knee DJD Fracture of left tibial plateau Injury of quadriceps tendon Alcohol withdrawal Alcohol abuse with intoxication (Acute) Hyponatremia (Acute) Effusion, left knee (Acute) Left knee sprain (Acute) Diarrhea (Acute) Acute UTI (urinary tract infection) (Acute) Acute proctitis (Acute) Acute kidney injury superimposed on chronic kidney disease (Acute) Scalp laceration Sepsis (Acute) Anaplasmosis (Acute) Acute renal failure (Acute) Elevated troponin (Acute) Thrombocytopenia (Acute) Lymphopenia (Acute) UTI (urinary tract infection) Anaplasmosis Severe sepsis Tobacco use Anxiety Hyponatremia CKD (chronic kidney disease), stage III Diarrhea (Acute) JAROCHO (acute kidney injury) (Acute) Acute lower GI bleeding (Acute) Acute UTI (urinary tract infection) (Acute) Septic arthritis of elbow, right Encounter for pre-operative examination Degenerative joint disease of elbow, right Effusion of elbow joint, right Alcoholism /alcohol abuse Right elbow pain (Acute) . Macular degeneration (Chronic) Tinnitus (Chronic) Leukocytosis (Acute) GI bleed (Acute) Renal failure (Acute) History of carcinoma of bladder (Chronic) Dyslipidemia (Chronic) History of colon polyps (Chronic) Hypertension (Chronic) Anemia due to blood loss, acute (Acute) Acute kidney injury (Acute) Status post lumbar surgery (Chronic) Ankle fracture (Acute) Surgical History H/O total cystectomy with ileal conduit Family History Other Cancer Coronary heart disease Social History Smoking Status: Never smoker Tobacco Type: Cigarettes Cigarettes Per Day: 6; Second Hand Exposure: Yes; Do You Dip or Chew Tobacco: No; Hx Alcohol Use: Yes Alcohol type: beer Alcohol Intake Frequency: 2-3 x/Week Hx Substance Use: No Preferred Language: Nepali Communication Ability: Effective Communication Ability Comment: Macular degeneration, legally blind Bilingual Speech Therapist Required: No Beliefs That Will Affect Care: None marital status: / Current Living Situation: Alone Feels Safe at Home: Yes Assistive Devices: Cane and Walker Allergies Allergies Allergy/AdvReac Type Severity Reaction Status Date / Time meclizine Allergy Severe THROAT/TONGUE Verified 09/05/24 01:36 SWELLS aspirin AdvReac Unknown History of Verified 09/05/24 01:36 ulcers Home Meds Home Medications Medication Instructions Recorded Confirmed acetaminophen 500 mg tablet 500 - 1,000 mg PO Q8H PRN Pain 11/28/18 09/05/24 (Tylenol Extra Strength) atenolol 50 mg tablet 100 mg PO DAILY 11/28/18 09/05/24 atorvastatin 20 mg tablet 20 mg PO PM 11/28/18 09/05/24 cholecalciferol (vitamin D3) 10 400 unit PO DAILY 11/28/18 09/05/24 mcg/mL (400 unit/mL) oral drops (D-Vi-Tish) clonazepam 1 mg tablet 0.5 mg PO BID PRN Anxiety 11/28/18 09/05/24 clonazepam 1 mg tablet 1 mg PO HS PRN RESTLESSNESS 11/28/18 09/05/24 ferrous sulfate 325 mg (65 mg 325 mg PO DAILY 11/28/18 09/05/24 iron) tablet lorazepam 1 mg tablet 1 mg PO DIRECTED PRN BEFORE 11/28/18 09/05/24 TRAVELING vxohxism-qjawuqdo-bitmd acid 400 1 tab PO DAILY 11/28/18 09/05/24 mcg-vit K 20 mcg-lycop 300 mcg tablet (Men's One Daily) omeprazole 20 mg capsule,delayed 20 mg PO DAILYBB 11/28/18 09/05/24 release amlodipine 5 mg tablet 5 mg PO DAILY 05/16/22 09/05/24 trazodone 50 mg tablet 50 mg PO HS 05/16/22 09/05/24 baclofen 10 mg tablet 10 mg PO BID 12/28/22 09/05/24 nystatin 100,000 unit/gram topical 1 applic topical BID PRN Skin 12/28/22 09/05/24 cream Irritation tizanidine 4 mg capsule 4 mg PO BID 08/07/24 09/05/24 Previous Rx's Medication Instructions Recorded magnesium oxide 400 mg (241.3 mg 400 mg PO BID #30 tabs 12/05/22 magnesium) tablet oxycodone 5 mg tablet 5 mg PO Q4H PRN pain #15 tabs 08/07/24 enoxaparin 40 mg/0.4 mL 40 mg (0.4 mL) subcut DAILY #4 mL 08/17/24 subcutaneous syringe (Lovenox) folic acid 1 mg tablet 1 mg PO QAM #30 tabs 08/17/24 multivitamin with folic acid 400 1 tab PO QAM #30 tabs 08/17/24 mcg tablet (Daily-Wang (with folic acid)) thiamine HCl (vitamin B1) 100 mg 100 mg PO QAM #30 tabs 08/17/24 tablet Results & Data (ED) Vital Signs Vital Signs - 24 hr 09/04/24 23:37 09/04/24 23:49 09/05/24 01:07 Temperature 36.5 C Temperature Source Oral Pulse Rate 62 63 Pulse Rate [Right Finger] 63 Pulse Rate from SpO2 Sensor Respiratory Rate 18 15 Respiratory Effort / Characteristics Non-Labored Spontaneous Non-Labored Spontaneous Respiratory Depth Normal Normal Respiratory Pattern Regular Blood Pressure 90/58 L Blood Pressure [Right Arm] 108/54 L Blood Pressure Mean 68 Blood Pressure Mean [Right Arm] 72 Pulse Oximetry 98 98 Oxygen Delivery Method Room Air Room Air Sepsis Recent Fever Within 48 Hours No Sepsis New/Unexplained Change in Mental Status N/A Sepsis Action Taken by Nursing No Action Required 09/05/24 03:09 09/05/24 03:51 09/05/24 04:03 Temperature Temperature Source Pulse Rate 63 63 65 Pulse Rate [Right Finger] Pulse Rate from SpO2 Sensor 63 63 Respiratory Rate 17 14 Respiratory Effort / Characteristics Respiratory Depth Respiratory Pattern Blood Pressure 120/85 125/68 Blood Pressure [Right Arm] Blood Pressure Mean 96 87 Blood Pressure Mean [Right Arm] Pulse Oximetry 98 96 Oxygen Delivery Method Room Air Sepsis Recent Fever Within 48 Hours Sepsis New/Unexplained Change in Mental Status Sepsis Action Taken by Nursing 09/05/24 05:00 09/05/24 05:30 Temperature Temperature Source Pulse Rate 67 71 Pulse Rate [Right Finger] Pulse Rate from SpO2 Sensor 67 Respiratory Rate 22 18 Respiratory Effort / Characteristics Respiratory Depth Respiratory Pattern Blood Pressure 134/71 136/72 Blood Pressure [Right Arm] Blood Pressure Mean 92 86 Blood Pressure Mean [Right Arm] Pulse Oximetry 96 99 Oxygen Delivery Method Sepsis Recent Fever Within 48 Hours Sepsis New/Unexplained Change in Mental Status Sepsis Action Taken by Nursing Laboratory Data 09/05/24 04:22 09/05/24 04:22 Lab Results 09/04/24 09/04/24 09/05/24 Range/Units 23:41 23:55 01:01 WBC 10.99 H (4.8-10.8) K/ul RBC 3.88 L (4.70-6.10) M/uL Hgb 12.9 L (14.0-18.0) g/dl Hct 35.5 L (42.0-52.0) % MCV 91.5 (80.0-100.0) fL MCH 33.2 (25.0-34.0) pg MCHC 36.3 H (32.0-36.0) g/dL RDW Std Deviation 38.3 (36.4-46.3) fL RDW Coeff of Hemanth 11.5 (11.5-14.5) % Plt Count 223 (130-400) K/uL MPV 10.5 (9.4-12.4) fL Immature Gran % (Auto) 1.9 % Neut % (Auto) 74.5 % Lymph % (Auto) 12.8 % [place] % (Auto) 8.2 % Eos % (Auto) 2.1 % Baso % (Auto) 0.5 % Neut # (Auto) 8.19 H (1.40-6.50) K/uL Lymph # (Auto) 1.41 (1.20-3.40) K/uL [place] # (Auto) 0.90 H (0.11-0.59) K/uL Eos # (Auto) 0.23 (0.00-0.50) K/uL Baso # (Auto) 0.05 (0.00-0.20) K/uL Immature Gran # (Auto) 0.21 H (0.01-0.20) K/uL Platelet Estimate Normal (Normal) PT Cancelled INR Cancelled Sodium 117 L* (136-145) mmol/L Potassium 4.8 (3.5-5.1) mmol/L Chloride 87 L (98-107) mmol/L Carbon Dioxide 21 (21-32) mmol/L Anion Gap 9 (3-11) BUN 11 (6-23) mg/dl Creatinine 1.18 (0.6-1.4) mg/dl Est Cr Clr Drug Dosing 55.1 ml/min eGFR 61.61 BUN/Creatinine Ratio 9.3 L (10-20) Glucose 82 (70-99(Fasting)) mg/dl Osmolality 267 L (280-300) mOsm/kg Calcium 8.2 L (8.6-10.3) mg/dl Magnesium 1.9 (1.7-2.4) mg/dl Total Bilirubin 0.6 (0.2-1.0) mg/dl Direct Bilirubin 0.1 (0-0.2) mg/dl AST 20 (13-39) U/L ALT 15 (7-52) U/L Alkaline Phosphatase 80 (34-104) U/L Total Creatine Kinase 54 (30-223) U/L Troponin I High Sens 5.8 (0-20) pg/ml Total Protein 6.1 (6.0-8.3) gm/dl Albumin 3.6 (3.4-5.0) gm/dl Lipase 21 (11-82) U/L Procalcitonin 0.16 (0-0.5) ng/ml TSH 3.624 (0.300-4.500) uIu/ml Urine Color Yellow Urine Appearance Clear (Clear) Urine pH 6.0 (4.5-7.5) Ur Specific Jackson 1.011 (1.000-1.030) Urine Protein 1+ H (Negative) Urine Glucose (UA) Negative (Negative) Urine Ketones Trace H (Negative) Urine Blood Negative (Negative) Urine Nitrite Positive A (Negative) Urine Bilirubin Negative (Negative) Urine Urobilinogen Negative (Negative) Ur Leukocyte Esterase Negative (Negative) Urine WBC (Auto) 6-10 H (0-5) /hpf Urine RBC (Auto) 0-2 (0-2) /hpf U Hyaline Cast (Auto) 3-5 H (0-2) /lpf U Epithel Cells (Auto) 0-2 (0-2) /hpf Urine Bacteria (Auto) 2+ H (None Seen) Urine Osmolality 248 L (500-800) mOsm/kg Ur Random Sodium 18 mmol/L Ethyl Alcohol mg/dL 103.7 H (<10.0) mg/dl 09/05/24 09/05/24 Range/Units 01:15 04:22 WBC 10.24 (4.8-10.8) K/ul RBC 3.76 L (4.70-6.10) M/uL Hgb 12.3 L (14.0-18.0) g/dl Hct 34.7 L (42.0-52.0) % MCV 92.3 (80.0-100.0) fL MCH 32.7 (25.0-34.0) pg MCHC 35.4 (32.0-36.0) g/dL RDW Std Deviation 38.6 (36.4-46.3) fL RDW Coeff of Hemanth 11.4 L (11.5-14.5) % Plt Count 241 (130-400) K/uL MPV 9.8 (9.4-12.4) fL Immature Gran % (Auto) 1.9 % Neut % (Auto) 67.2 % Lymph % (Auto) 20.4 % [place] % (Auto) 8.3 % Eos % (Auto) 1.7 % Baso % (Auto) 0.5 % Neut # (Auto) 6.89 H (1.40-6.50) K/uL Lymph # (Auto) 2.09 (1.20-3.40) K/uL [place] # (Auto) 0.85 H (0.11-0.59) K/uL Eos # (Auto) 0.17 (0.00-0.50) K/uL Baso # (Auto) 0.05 (0.00-0.20) K/uL Immature Gran # (Auto) 0.19 (0.01-0.20) K/uL Platelet Estimate (Normal) PT 10.8 INR 1.0 Sodium 120 L (136-145) mmol/L Potassium 4.9 (3.5-5.1) mmol/L Chloride 90 L (98-107) mmol/L Carbon Dioxide 22 (21-32) mmol/L Anion Gap 8 (3-11) BUN 10 (6-23) mg/dl Creatinine 1.10 (0.6-1.4) mg/dl Est Cr Clr Drug Dosing 59.1 ml/min eGFR 67.02 BUN/Creatinine Ratio 9.1 L (10-20) Glucose 82 (70-99(Fasting)) mg/dl Osmolality (280-300) mOsm/kg Calcium 7.7 L (8.6-10.3) mg/dl Magnesium (1.7-2.4) mg/dl Total Bilirubin (0.2-1.0) mg/dl Direct Bilirubin (0-0.2) mg/dl AST (13-39) U/L ALT (7-52) U/L Alkaline Phosphatase (34-104) U/L Total Creatine Kinase (30-223) U/L Troponin I High Sens (0-20) pg/ml Total Protein (6.0-8.3) gm/dl Albumin (3.4-5.0) gm/dl Lipase (11-82) U/L Procalcitonin (0-0.5) ng/ml TSH (0.300-4.500) uIu/ml Urine Color Urine Appearance (Clear) Urine pH (4.5-7.5) Ur Specific Jackson (1.000-1.030) Urine Protein (Negative) Urine Glucose (UA) (Negative) Urine Ketones (Negative) Urine Blood (Negative) Urine Nitrite (Negative) Urine Bilirubin (Negative) Urine Urobilinogen (Negative) Ur Leukocyte Esterase (Negative) Urine WBC (Auto) (0-5) /hpf Urine RBC (Auto) (0-2) /hpf U Hyaline Cast (Auto) (0-2) /lpf U Epithel Cells (Auto) (0-2) /hpf Urine Bacteria (Auto) (None Seen) Urine Osmolality (500-800) mOsm/kg Ur Random Sodium mmol/L Ethyl Alcohol mg/dL (<10.0) mg/dl Administered Medications Discontinued Medications Sodium Chloride (Nss) 1,000 mls @ 999 mls/hr IV .[id number] ONE Stop: 09/05/24 01:04 Last Infusion: 09/05/24 02:26 Dose: Infused Documented By: Admin: 09/05/24 00:10 Dose: 999 mls/hr Documented By: CHERELLE Thiamine HCl 100 mg/ Syringe 10 mls @ 2 mls/min IV NOW STA Stop: 09/05/24 00:08 Last Admin: 09/05/24 01:07 Dose: 2 mls/min Documented By: WALLACEK Ceftriaxone Sodium (Rocephin) 2,000 mg in 50 mls @ 100 mls/hr IV ONE STA Stop: 09/05/24 02:47 Last Infusion: 09/05/24 03:02 Dose: Infused Documented By: Admin: 09/05/24 02:24 Dose: 100 mls/hr Documented By: WALLACEK Oxycodone HCl (Oxycodone Hcl Ir 5 Mg Tab (Immediate Release)) 5 mg PO NOW STA Stop: 09/05/24 05:28 Last Admin: 09/05/24 05:55 Dose: 5 mg Documented By: HH Imaging Data Radiologist's Impression: Venous Doppler Study 09/05/24 00:04 EXAM: US venous doppler LE LT CLINICAL HISTORY: left lower leg pain swelling post splint x 3 wks TECHNIQUE: Grayscale ultrasound, with and without compression, and color Doppler spectral waveform analysis were performed of the deep veins of the left lower extremity from the level of the common femoral vein to the level of the popliteal vein. The posterior tibial and peroneal vein were also scanned. COMPARISON: none. FINDINGS: Left common femoral vein, femoral vein, and popliteal vein are compressible and opacify at color Doppler evaluation with no evidence of deep vein thrombosis. Duplicated mid FV, both appear patent. There is no evidence of DVT in the visualized portions of the posterior tibial and peroneal veins IMPRESSION: 1. Negative for deep vein thrombosis. 2. Duplicated mid FV, both appear patent. Electronically signed by Steve Wang 09-05-2024 02:08 AM Chest X-Ray 09/05/24 00:06 EXAM: XR chest 1V portable CLINICAL HISTORY: hypotension TECHNIQUE: An X-ray image of the chest is obtained in AP projection. COMPARISON: 08/08/2023 FINDINGS: Pulmonary Parenchyma: Emphysematous lungs. Prominent and coarse bronchovascular markings. No evidence of consolidation, collapse, or focal opacities. No pulmonary nodules are identified. No evidence of pleural effusion or pleural thickening. Heart and Mediastinum: Heart size and shape are normal. No mediastinal widening or masses. No hilar or mediastinal lymphadenopathy. Bony Thorax: Bony thorax appears intact without fractures or deformities. Soft Tissues: Soft tissues overlying the chest wall are unremarkable. IMPRESSION: 1. No obvious consolidation, pneumothorax, or pleural effusion. 2. Emphysematous lungs. 3. Fine atelectasis at the bilateral lung bases. 4. Haziness of the left costophrenic angle is likely projectional due to overlying soft tissue shadows. 5. No significant interval changes Electronically signed by Bruno Mix 09-05-2024 01:10 AM Discharge Plan Visit Data Chief Complaint: Leg Injury/Pain Stated Complaint: Leg Pain, Unresponsive Episode, ETOH, Hypotension ED Provider: Tarik Chambers Discharge Problem: Hyponatremia, Alcohol abuse with intoxication, Left leg pain Patient Disposition: Home - Self-Care Condition: Good Forms Stand Alone Forms: My [facility], Important Visit Information Prescriptions Prescriptions: No Action atorvastatin 20 mg Tablet 20 mg PO PM clonazepam 1 mg Tablet 1 mg PO HS PRN (Reason: RESTLESSNESS) clonazepam 1 mg Tablet 0.5 mg PO BID PRN (Reason: Anxiety) acetaminophen [Tylenol Extra Strength] 500 mg Tablet 500 - 1,000 mg PO Q8H PRN (Reason: Pain) ferrous sulfate 325 mg (65 mg iron) Tablet 325 mg PO DAILY omeprazole 20 mg Capsule,Delayed Release(Dr/Ec) 20 mg PO DAILYBB lorazepam 1 mg Tablet 1 mg PO DIRECTED PRN (Reason: BEFORE TRAVELING) Rx Instructions: TAKE ONE TABLET BY MOUTH BEFORE TRAVELING-MAY REPEAT AFTER 30 MINUTES. atenolol 50 mg Tablet 100 mg PO DAILY cholecalciferol (vitamin D3) [D-Vi-Tish] 10 mcg/mL (400 unit/mL) Drops 400 unit PO DAILY Men's One Daily 400-20-300 mcg Tablet 1 tab PO DAILY trazodone 50 mg tablet 50 mg PO HS amlodipine 5 mg tablet 5 mg PO DAILY baclofen 10 mg tablet 10 mg PO BID nystatin 100,000 unit/gram cream 1 applic TOPICAL BID PRN (Reason: Skin Irritation) magnesium oxide 400 mg (241.3 mg magnesium) Tablet 400 mg PO BID Qty: 30 0RF oxycodone 5 mg tablet 5 mg PO Q4H PRN (Reason: pain) Qty: 15 0RF tizanidine 4 mg capsule 4 mg PO BID thiamine HCl (vitamin B1) 100 mg Tablet 100 mg PO QAM Qty: 30 0RF folic acid 1 mg Tablet 1 mg PO QAM Qty: 30 0RF multivitamin with folic acid [Daily-Wang (with folic acid)] 400 mcg Tablet 1 tab PO QAM Qty: 30 0RF enoxaparin [Lovenox] 40 mg/0.4 mL syringe 40 mg subcut DAILY Qty: 4 0RF Rx Instructions: For 4 weeks STARTED 08/25/24 FOR 21 DAYS. Referrals Referrals: Demarco Guallpa MD [Primary Care Provider] -
[2024-09-05 00:41] LABS: Albumin Level 3.6 gm/dl (3.4-5.0); BUN Creatinine Ratio 9.3 (10-20); Bilirubin,Total 0.6 mg/dl (0.2-1.0); Calcium 8.2 mg/dl (8.6-10.3); Creatinine Clr Calc Pharmacy 55.1 ml/min; Total Protein 6.1 gm/dl (6.0-8.3); Troponin I High Sensitivity 5.8 pg/ml (0-20)
[2024-09-05 00:44] LABS: Bilirubin Direct 0.1 mg/dl (0-0.2); Magnesium 1.9 mg/dl (1.7-2.4); Potassium 4.8 mmol/L (3.5-5.1)
[2024-09-05 00:47] LABS: Basophils # (auto) 0.05 K/uL (0.00-0.20); Basophils % (auto) 0.5 %; Eosinophils # (auto) 0.23 K/uL (0.00-0.50); Eosinophils % (auto) 2.1 %; Hematocrit (blood only) 35.5 % (42.0-52.0); Hemoglobin 12.9 g/dl (14.0-18.0); Immature Granulocytes # (auto) 0.21 K/uL (0.01-0.20); Immature Granulocytes % (auto) 1.9 %; Lymphocytes # (auto) 1.41 K/uL (1.20-3.40); Lymphocytes % (auto) 12.8 %; Mean Corpuscular Hemoglobin 33.2 pg (25.0-34.0); Mean Corpuscular Hgb Conc 36.3 g/dL (32.0-36.0); Mean Corpuscular Volume 91.5 fL (80.0-100.0); Mean Platelet Volume 10.5 fL (9.4-12.4); Monocytes % (auto) 8.2 %; Neutrophils # (auto) 8.19 K/uL (1.40-6.50); Neutrophils % (auto) 74.5 %; Platelet Count 223 K/uL (130-400); Platelet Estimate Normal (Normal); RDW Coefficient of Variation 11.5 % (11.5-14.5); RDW Standard Deviation 38.3 fL (36.4-46.3); Red Blood Count 3.88 M/uL (4.70-6.10); White Blood Count 10.99 K/ul (4.8-10.8)
[2024-09-05] MEDS: THIAMINE HCL 100 MG in SYRINGE 9 ML IV STA (01:07)
--- NOTE | 2024-09-05 01:10 | XRay Report ---
EXAM: XR chest 1V portable CLINICAL HISTORY: hypotension TECHNIQUE: An X-ray image of the chest is obtained in AP projection. COMPARISON: 08/08/2023 FINDINGS: Pulmonary Parenchyma: Emphysematous lungs. Prominent and coarse bronchovascular markings. No evidence of consolidation, collapse, or focal opacities. No pulmonary nodules are identified. No evidence of pleural effusion or pleural thickening. Heart and Mediastinum: Heart size and shape are normal. No mediastinal widening or masses. No hilar or mediastinal lymphadenopathy. Bony Thorax: Bony thorax appears intact without fractures or deformities. Soft Tissues: Soft tissues overlying the chest wall are unremarkable. IMPRESSION: 1. No obvious consolidation, pneumothorax, or pleural effusion. 2. Emphysematous lungs. 3. Fine atelectasis at the bilateral lung bases. 4. Haziness of the left costophrenic angle is likely projectional due to overlying soft tissue shadows. 5. No significant interval changes Electronically signed by Bruno Mix 09-05-2024 01:10 AM
[2024-09-05 01:21] LABS: Appearance Urine Clear (Clear); Bacteria Urine Automated 2+ (None Seen); Bilirubin Urine Negative (Negative); Blood Urine Negative (Negative); Color Urine Yellow; Epithelial Cell Urine Auto 0-2 /hpf (0-2); Glucose Urine UA Negative (Negative); Ketones Urine Trace (Negative); Leukocyte Esterase Urine Negative (Negative); Nitrite Urine Positive (Negative); Protein Urine 1+ (Negative); RBC Urine Automated 0-2 /hpf (0-2); Specific Gravity Urine 1.011 (1.000-1.030); Urobilinogen Urine Negative (Negative)
[2024-09-05 01:59] LABS: Prothrombin Time 10.8 Seconds (9.0-12.0)
--- NOTE | 2024-09-05 02:09 | Ultrasound Report ---
EXAM: US venous doppler LE LT CLINICAL HISTORY: left lower leg pain swelling post splint x 3 wks TECHNIQUE: Grayscale ultrasound, with and without compression, and color Doppler spectral waveform analysis were performed of the deep veins of the left lower extremity from the level of the common femoral vein to the level of the popliteal vein. The posterior tibial and peroneal vein were also scanned. COMPARISON: none. FINDINGS: Left common femoral vein, femoral vein, and popliteal vein are compressible and opacify at color Doppler evaluation with no evidence of deep vein thrombosis. Duplicated mid FV, both appear patent. There is no evidence of DVT in the visualized portions of the posterior tibial and peroneal veins IMPRESSION: 1. Negative for deep vein thrombosis. 2. Duplicated mid FV, both appear patent. Electronically signed by Steve Wang 09-05-2024 02:08 AM
[2024-09-05] MEDS: cefTRIAXone SODIUM 2,000 MG/50 ML BAG IV STA (02:24)
[2024-09-05 04:28] LABS: Thyroid Stimulating Hormone 3.624 uIu/ml (0.300-4.500)
[2024-09-05 04:51] LABS: Basophils # (auto) 0.05 K/uL (0.00-0.20); Basophils % (auto) 0.5 %; Eosinophils # (auto) 0.17 K/uL (0.00-0.50); Eosinophils % (auto) 1.7 %; Hematocrit (blood only) 34.7 % (42.0-52.0); Hemoglobin 12.3 g/dl (14.0-18.0); Immature Granulocytes # (auto) 0.19 K/uL (0.01-0.20); Immature Granulocytes % (auto) 1.9 %; Lymphocytes # (auto) 2.09 K/uL (1.20-3.40); Lymphocytes % (auto) 20.4 %; Mean Corpuscular Hemoglobin 32.7 pg (25.0-34.0); Mean Corpuscular Hgb Conc 35.4 g/dL (32.0-36.0); Mean Corpuscular Volume 92.3 fL (80.0-100.0); Mean Platelet Volume 9.8 fL (9.4-12.4); Monocytes # (auto) 0.85 K/uL (0.11-0.59); Monocytes % (auto) 8.3 %; Neutrophils # (auto) 6.89 K/uL (1.40-6.50); Neutrophils % (auto) 67.2 %; Platelet Count 241 K/uL (130-400); RDW Coefficient of Variation 11.4 % (11.5-14.5); RDW Standard Deviation 38.6 fL (36.4-46.3); Red Blood Count 3.76 M/uL (4.70-6.10); White Blood Count 10.24 K/ul (4.8-10.8)
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
[2024-09-05] MEDS ORDERED: PROMETHAZINE 6.25 MG/50.25 ML BAG IV PRN (05:03)
[2024-09-05] MEDS ORDERED: ATROPINE SULFATE 0.1 MG/ML 10ML SYR IV PRN (05:03)
[2024-09-05] MEDS ORDERED: ACETAMINOPHEN 325 MG TAB PO PRN (05:03)
[2024-09-05] MEDS ORDERED: LORazepam 2 MG/1 ML VIAL IV PRN (05:03)
[2024-09-05] MEDS ORDERED: clonazePAM 0.5 MG TAB PO PRN (05:04)
[2024-09-05 05:08] LABS: BUN Creatinine Ratio 9.1 (10-20); Calcium 7.7 mg/dl (8.6-10.3); Creatinine Clr Calc Pharmacy 59.1 ml/min; Potassium 4.9 mmol/L (3.5-5.1)
[2024-09-05] MEDS: oxyCODONE HCL IR 5 MG TAB (IMMEDIATE RELEASE) PO STA (05:55)
[2024-09-05] MEDS: PANTOprazole 40 MG TAB PO SCH (07:49)
[2024-09-05] MEDS ORDERED: FOLIC ACID 1 MG TAB PO SCH (09:00)
[2024-09-05] MEDS: tiZANidine HCL 4 MG TABLET PO SCH (10:00)
[2024-09-05] MEDS: MULTIVITAMIN TAB PO SCH (10:01)
[2024-09-05] MEDS: FOLIC ACID 1 MG TAB PO SCH (10:02)
[2024-09-05] MEDS: FERROUS SULFATE 325 MG TAB PO SCH (10:02)
[2024-09-05] MEDS: ENOXAPARIN INJ 40 MG/0.4 ML SYR SQ SCH (10:03)
--- NOTE | 2024-09-05 12:50 | Hospitalist Progress Note ---
Date of Service September 05, 2024 Assessment & Plan (1) Hyponatremia with decreased serum osmolality: (2) Acute metabolic encephalopathy: (3) Acute UTI (urinary tract infection): Plan: Suspected (4) Alcohol abuse with intoxication: (5) Fracture of left tibial plateau: (6) Injury of quadriceps tendon: (7) Polydipsia: (8) History of carcinoma of bladder: (9) Presence of urostomy: Plan Patient presents with acute metabolic encephalopathy and weakness due to combination of severe hyponatremia, possible UTI and alcohol intoxication. Patient's hyponatremia most likely due to excessive water intake. Patient reports that he drinks a half a gallon of water first thing in the morning in addition to 3 large mugs of coffee. Then throughout the day he drinks additional water and Gatorade. Yesterday he also drank 7 beers within about 6 hours. This most likely explains his hyponatremia. Discussed with him about water restriction and that excessive water intake can cause low sodium levels which cause his confusion. Reviewed previous urine culture, continue ceftriaxone based on previous sensitivities, monitor current urine culture Continue to monitor for alcohol withdrawal, low suspicion, sounds like patient binges and does not drink alcohol on a daily basis Follow laboratory studies Therapies Case management for disposition planning Admission and Anticipated Discharge Date Admission Date: September 05, 2024 Subjective Patient sitting up, eating lunch. Complains about brace on his leg bothering him. States that he can go days without drinking any alcohol or beer. Physical Exam Physical Exam: Constitutional: Alert, nontoxic HEENT: Mucous membranes moist. Lungs: Clear to auscultation, decreased, no wheezes rales or rhonchi CV: S1-S2, regular Abdomen: Soft, nontender, nondistended Extremities: Left lower extremity in immobilizer Neuro: No focal deficits, generalized weakness Psych: Cooperative, normal mood Results & Data Results & Data Vital Signs (Past 12 Hours) Vital Signs Temp Pulse Pulse Resp BP BP Pulse Ox 09/05/24 10:59 79 09/05/24 10:49 36.8 C 69 16 168/81 H 94 09/05/24 08:20 09/05/24 08:20 36.7 C 76 17 152/74 H 94 09/05/24 06:30 66 18 129/64 96 09/05/24 06:03 68 18 135/67 95 09/05/24 05:30 71 18 136/72 99 09/05/24 05:00 67 22 134/71 96 09/05/24 04:03 65 14 125/68 96 09/05/24 03:51 63 09/05/24 03:09 63 17 120/85 98 09/05/24 01:07 63 15 108/54 L 98 O2 Del Method 09/05/24 10:59 09/05/24 10:49 Room Air 09/05/24 08:20 Room Air 09/05/24 08:20 Room Air 09/05/24 06:30 09/05/24 06:03 09/05/24 05:30 09/05/24 05:00 09/05/24 04:03 09/05/24 03:51 09/05/24 03:09 Room Air 09/05/24 01:07 Room Air Diagnostic Findings Reviewed imaging, laboratory and diagnostic studies. Pertinent findings as below.
[2024-09-05] MEDS ORDERED: tiZANidine HCL 4 MG TABLET PO PRN (12:52)
[2024-09-05] MEDS: oxyCODONE HCL IR 5 MG TAB (IMMEDIATE RELEASE) PO PRN (19:27)
[2024-09-05] MEDS: ATORVASTATIN 20 MG TAB PO SCH (20:18)
[2024-09-05] MEDS: ACETAMINOPHEN 325 MG TAB PO PRN (20:18)
[2024-09-05] MEDS: traZODone HCL 50 MG TAB PO SCH (20:18)
[2024-09-05] MEDS: clonazePAM 1 MG TAB PO PRN (20:19)
[2024-09-06] MEDS: cefTRIAXone SODIUM 2,000 MG/50 ML BAG IV SCH (02:11)
[2024-09-06 06:33] LABS: Calcium 8.6 mg/dl (8.6-10.3); Creatinine Clr Calc Pharmacy 59.2 ml/min; Magnesium 1.8 mg/dl (1.7-2.4); Phosphorus 3.3 mg/dl (2.5-4.9); Potassium 4.8 mmol/L (3.5-5.1)
[2024-09-06] MEDS: THIAMINE HCL 100 MG TAB PO SCH (07:49)
--- NOTE | 2024-09-06 09:13 | Electrocardiogram Report ---
Test Reason : Blood Pressure : */* mmHG Vent. Rate : 61 BPM Atrial Rate : 61 BPM P-R Int : 310 ms QRS Dur : 82 ms QT Int : 408 ms P-R-T Axes : 41 28 68 degrees QTcB Int : 410 ms Sinus rhythm with 1st degree A-V block Septal infarct (cited on or before 14-Apr-2017) Abnormal ECG When compared with ECG of 28-Nov-2022 19:28, Vent. rate has decreased by 48 bpm T wave amplitude has increased in Lateral leads Confirmed by Laurie Mejia (Ryder) on 09/06/2024 9:13:31 AM Referred By: REFERRED SELF Confirmed By: Laurie Mejia
[2024-09-06] MEDS: GABAPENTIN 100 MG CAP PO SCH (09:49)
[2024-09-06] MEDS: ACETAMINOPHEN 500 MG TAB PO SCH (09:49)
--- NOTE | 2024-09-06 10:14 | Hospitalist Progress Note ---
Date of Service September 06, 2024 Assessment & Plan (1) Hyponatremia with decreased serum osmolality: (2) Acute metabolic encephalopathy: (3) UTI (urinary tract infection) due to urinary indwelling catheter: (4) Fracture of left tibial plateau: (5) Injury of quadriceps tendon: (6) Alcohol abuse with intoxication: (7) Polydipsia: (8) History of carcinoma of bladder: (9) Presence of urostomy: Plan Patient's metabolic encephalopathy and intoxication has cleared. [facility] Urine culture pending, continue ceftriaxone Continue to monitor sodium, fluid restriction Therapy evaluations, suspect patient was not getting around well at home enough to take care of himself after discharge from acute rehab Reviewed orthopedic notations from previous hospitalization, Recommending wearing immobilizer when ambulating, weight-bear as tolerated on tibial plateau fracture recommending repeat films in 4 weeks which is essentially now. Will consult orthopedics. Trial of gabapentin for presumed peripheral neuropathy Case management may need SNF rehab. Admission and Anticipated Discharge Date Admission Date: September 05, 2024 Subjective Patient complaining of some neuropathy symptoms in his fingertips and toes. He states he really was not doing well at home after discharge from [facility]. Physical Exam Physical Exam: Constitutional: Alert, nontoxic HEENT: Mucous membranes moist. Lungs: Clear to auscultation, decreased, no wheezes rales or rhonchi CV: S1-S2, regular Abdomen: Soft, nontender, nondistended Extremities: No significant edema, left lower extremity in immobilizer Neuro: No focal deficits Psych: Cooperative, normal mood Results & Data Results & Data Vital Signs (Past 12 Hours) Vital Signs Temp Pulse Resp BP BP Pulse Ox O2 Del Method 09/06/24 07:50 37.3 C 79 16 150/72 H 95 Room Air 09/06/24 03:30 36.5 C 62 14 158/82 H 93 Room Air 09/05/24 23:30 36.8 C 73 16 148/82 H 96 Room Air Diagnostic Findings Reviewed imaging, laboratory and diagnostic studies. Pertinent findings as below. Sodium 127, improved Creatinine 1.1 Magnesium 1.8 Echocardiogram shows normal ejection fraction, no significant abnormalities
--- NOTE | 2024-09-06 11:36 | XRay Report ---
HISTORY: Tibial plateau fracture. TECHNIQUE: Left knee, 4 views. COMPARISON: Left knee radiographs dated MRI dated 08/10/2024. FINDINGS: Mildly displaced subacute lateral tibial plateau fracture with articular surface depression. Alignment is otherwise maintained. Mild tricompartmental osteoarthritis. Chronic appearing ossicle overlying the distal patellar tendon. The bones appear demineralized, which may reflect osteopenia or osteoporosis. Small joint effusion. Mild atherosclerotic vascular disease. IMPRESSION: Subacute mildly displaced intra-articular fracture of the lateral tibial plateau with mild articular surface depression. Electronically signed by Melvin English 09-06-2024 11:27 AM
[2024-09-06] MEDS: SIMETHICONE 80 MG CHEW PO ONE (19:47)
[2024-09-07 06:51] LABS: BUN Creatinine Ratio 9.8 (10-20); Calcium 8.6 mg/dl (8.6-10.3); Creatinine Clr Calc Pharmacy 45.5 ml/min; Potassium 4.9 mmol/L (3.5-5.1)
--- NOTE | 2024-09-07 07:07 | Orthopedic Consultation ---
Date of Service September 07, 2024 Assessment & Plan (1) Fracture of left tibial plateau: 83-year-old gentleman about a month out from nondisplaced/minimally displaced lateral tibial plateau fracture. His knee is looking much better today. The swelling is markedly improved. Minimal knee effusion. Minimal tenderness. Plan: At this point we can let him start progressively weightbearing on this leg. No need for a knee immobilizer. He can weight-bear as tolerated using symptoms as far as activity level restrictions. No real orthopedic restrictions other than just progressive ambulation. He can follow-up in orthopedic clinic as needed. Any orthopedic questions can be directly [phone]. History of Present Illness Reason for Consultation: . Left tibial plateau fracture. Requesting Physician: . Attending Physician: Ha Styles DO . Patient is an 83-year-old gentleman that we saw about a month ago in the hospital for a left knee injury. He was diagnosed with a minimally displaced lateral tibial plateau fracture at that time. He was discharged from [facility] to home and now readmitted. His knee is doing okay. Still having some pain but markedly better. He says he is not been putting much weight on it. Allergies Allergy/AdvReac Type Severity Reaction Status Date / Time meclizine Allergy Severe THROAT/TONGUE Verified 09/05/24 01:36 SWELLS aspirin AdvReac Unknown History of Verified 09/05/24 01:36 ulcers Home Medications Medication Instructions Recorded Confirmed Type acetaminophen 500 mg tablet 500 - 1,000 mg PO Q8H PRN Pain 11/28/18 09/05/24 History (Tylenol Extra Strength) atenolol 50 mg tablet 100 mg PO DAILY 11/28/18 09/05/24 History atorvastatin 20 mg tablet 20 mg PO PM 11/28/18 09/05/24 History cholecalciferol (vitamin D3) 10 400 unit PO DAILY 11/28/18 09/05/24 History mcg/mL (400 unit/mL) oral drops (D-Vi-Tish) clonazepam 1 mg tablet 0.5 mg PO BID PRN Anxiety 11/28/18 09/05/24 History clonazepam 1 mg tablet 1 mg PO HS PRN RESTLESSNESS 11/28/18 09/05/24 History ferrous sulfate 325 mg (65 mg 325 mg PO DAILY 11/28/18 09/05/24 History iron) tablet lorazepam 1 mg tablet 1 mg PO DIRECTED PRN BEFORE 11/28/18 09/05/24 History TRAVELING wlfhvfzy-hkzilpch-amqon acid 400 1 tab PO DAILY 11/28/18 09/05/24 History mcg-vit K 20 mcg-lycop 300 mcg tablet (Men's One Daily) omeprazole 20 mg capsule,delayed 20 mg PO DAILYBB 11/28/18 09/05/24 History release amlodipine 5 mg tablet 5 mg PO DAILY 05/16/22 09/05/24 History trazodone 50 mg tablet 50 mg PO HS 05/16/22 09/05/24 History magnesium oxide 400 mg (241.3 mg 400 mg PO BID #30 tabs 12/05/22 09/05/24 Rx magnesium) tablet baclofen 10 mg tablet 10 mg PO BID 12/28/22 09/05/24 History nystatin 100,000 unit/gram topical 1 applic topical BID PRN Skin 12/28/22 09/05/24 History cream Irritation oxycodone 5 mg tablet 5 mg PO Q4H PRN pain #15 tabs 08/07/24 09/05/24 Rx tizanidine 4 mg capsule 4 mg PO BID 08/07/24 09/05/24 History enoxaparin 40 mg/0.4 mL 40 mg (0.4 mL) subcut DAILY #4 mL 08/17/24 09/05/24 Rx subcutaneous syringe (Lovenox) folic acid 1 mg tablet 1 mg PO QAM #30 tabs 08/17/24 09/05/24 Rx multivitamin with folic acid 400 1 tab PO QAM #30 tabs 08/17/24 09/05/24 Rx mcg tablet (Daily-Wang (with folic acid)) thiamine HCl (vitamin B1) 100 mg 100 mg PO QAM #30 tabs 08/17/24 09/05/24 Rx tablet Past Med/Surg History Problem List UTI (urinary tract infection) due to urinary indwelling catheter Acute metabolic encephalopathy Presence of urostomy Polydipsia Hyponatremia with decreased serum osmolality Bradycardia Left leg pain (Acute) Right knee DJD Fracture of left tibial plateau Injury of quadriceps tendon Alcohol withdrawal Alcohol abuse with intoxication (Acute) Hyponatremia (Acute) Effusion, left knee (Acute) Left knee sprain (Acute) Diarrhea (Acute) Acute UTI (urinary tract infection) (Acute) Acute proctitis (Acute) Acute kidney injury superimposed on chronic kidney disease (Acute) Scalp laceration Sepsis (Acute) Anaplasmosis (Acute) Acute renal failure (Acute) Elevated troponin (Acute) Thrombocytopenia (Acute) Lymphopenia (Acute) UTI (urinary tract infection) Anaplasmosis Severe sepsis Tobacco use Anxiety Hyponatremia CKD (chronic kidney disease), stage III Diarrhea (Acute) JAROCHO (acute kidney injury) (Acute) Acute lower GI bleeding (Acute) Acute UTI (urinary tract infection) (Acute) Septic arthritis of elbow, right Encounter for pre-operative examination Degenerative joint disease of elbow, right Effusion of elbow joint, right Alcoholism /alcohol abuse Right elbow pain (Acute) . Macular degeneration (Chronic) Tinnitus (Chronic) Leukocytosis (Acute) GI bleed (Acute) Renal failure (Acute) History of carcinoma of bladder (Chronic) Dyslipidemia (Chronic) History of colon polyps (Chronic) Hypertension (Chronic) Anemia due to blood loss, acute (Acute) Acute kidney injury (Acute) Status post lumbar surgery (Chronic) Ankle fracture (Acute) Surgical History H/O total cystectomy with ileal conduit Family History Other Cancer Coronary heart disease Social History Smoking Status: Current every day smoker Tobacco Type: Cigarettes Cigarettes Per Day: 6; Second Hand Exposure: Yes; Do You Dip or Chew Tobacco: No; Tobacco Cessation Education Requested by Patient: No Hx Alcohol Use: Yes Alcohol type: beer Alcohol Intake Frequency: 2-3 x/Week Hx Substance Use: No Preferred Language: Faroese Communication Ability: Effective Communication Ability Comment: Macular degeneration, legally blind Medical Appointment Scheduler Required: No Beliefs That Will Affect Care: None marital status: / Current Living Situation: Alone Other Information That Helps Us Care for You: No Feels Safe at Home: Yes Safety Concerns: Feels Safe At This Time Assistive Devices: Cane and Walker Review of Systems All systems reviewed & are unremarkable except as noted in HPI & below. Physical Exam . Physical nation is a pleasant elderly male. Lying bed looks pretty comfortable. Examination of left knee and leg reveals to be well aligned. 6 got anatomic alignment to his knee fairly neutral alignment. He is got just a trace knee effusion. Can do a straight leg raise. Minimal tenderness. Results & Data Results & Data Laboratory Results . Diagnostic Findings . X-rays left knee were reviewed. Shows a healing minimally displaced lateral tibial plateau fracture. Diffuse osteopenia. Moderate degenerative arthritis. PG Care Time/CCT Total # of Minutes Spent Total Time Spent with Patient: Total time spent is greater than 50% in coordination of care (as documented) at patient's floor/unit and/or counseling patient: Coding Level of Care Code 28313 IN/OBS CONSULT LVL 3,45M Diagnoses Fracture of left tibial plateau S82.142A
[2024-09-07 07:31] VITALS: RESP 16
--- NOTE | 2024-09-07 12:43 | Hospitalist Progress Note ---
Date of Service September 07, 2024 Assessment & Plan (1) Hyponatremia with decreased serum osmolality: (2) Acute metabolic encephalopathy: (3) UTI (urinary tract infection) due to urinary indwelling catheter: (4) Fracture of left tibial plateau: (5) Injury of quadriceps tendon: (6) Alcohol abuse with intoxication: (7) Polydipsia: (8) History of carcinoma of bladder: (9) Presence of urostomy: Plan Patient's sodium continues to improve with about him drinking beer and excessive other liquids., Continue to monitor sodium level Creatinine slightly increased today but within his previous levels, continue to monitor Discontinue Rocephin after today's dose well received 4 doses for treatment of E. coli UTI Reviewed orthopedic recommendations, no longer in need of immobilizer and can weight-bear as tolerated Case management updated, bed availability for ongoing rehabilitation at [facility] tomorrow Updated patient's daughter via phone, she requests updates and coordination with [facility]. Best number to reach her is her cell phone: [phone] Admission and Anticipated Discharge Date Admission Date: September 05, 2024 Subjective Patient continuing to improve. Denies chest pain or shortness of breath. Continues to express concern about going home. Very hesitant about his left leg despite the fact orthopedics had been by earlier today and gave him good news that he does not need to wear the immobilizer and can increase his activity Physical Exam Physical Exam: Constitutional: Alert, nontoxic HEENT: Mucous membranes moist. Lungs: Clear to auscultation, decreased, no wheezes rales or rhonchi CV: S1-S2, regular Abdomen: Soft, nontender, nondistended Extremities: No significant edema, no significant swelling left knee Neuro: No focal deficits, generally weak Psych: Cooperative, normal mood Results & Data Results & Data Vital Signs (Past 12 Hours) Vital Signs Temp Pulse Resp BP Pulse Ox O2 Del Method 09/07/24 07:30 Room Air 09/07/24 07:30 36.6 C 87 16 133/80 97 Room Air Diagnostic Findings Reviewed imaging, laboratory and diagnostic studies. Pertinent findings as below. Sodium 132, continue to improve Creatinine 1.43 Urine culture growing pansensitive E. coli
[2024-09-08 06:11] LABS: BUN Creatinine Ratio 12.3 (10-20); Calcium 8.4 mg/dl (8.6-10.3); Creatinine Clr Calc Pharmacy 53.4 ml/min; Potassium 4.7 mmol/L (3.5-5.1)
[2024-09-08 07:27] VITALS: PULSE 78; TEMP 97.9; O2SAT 93
[2024-09-08 09:42] VITALS: BP 165/77
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
== END 2024-09-08 10:25 | DRG 698 ==
LOC: ED 23:28 → EDINP 09-05 05:02 → SUATTDRO 09-05 05:02 → 2S 09-05 07:45 → 3E 09-05 15:11